=== PATIENT | female | born 1955 | race Caucasian/White ===

== ENCOUNTER → 2019-09-02 10:32 | Outpatient (CLI) | payer BC, SELFPAY ==
[2019-09-02 11:19] LABS: Blood Urea Nitrogen 12 mg/dL (7-18); Creatinine,Serum 0.57 mg/dL (0.55-1.02); Estimated Glomerular Filt Rate 107 ml/min (>60); GFR (African American) 129 ML/MIN (>60)
== END ==
PROVIDERS: Visit Provider Family Medicine
DX: Z01.818 Encounter for other preprocedural examination (principal)
CPT/HCPCS: 36415; 82565; 84520

== ENCOUNTER → 2019-09-07 13:10 | Outpatient (CLI) | payer BC, SELFPAY ==
--- NOTE | 2019-09-07 13:13 | CT_ITS ---
PROCEDURE: CT CHEST W CON CLINCAL INDICATION: ABN CT FU LUNG NODULE, tobacco use, smoker Follow-up COMPARISON: No exams were available for comparison TECHNIQUE: IV Contrast: 75ml Optiray 350 Axial images obtained with sagittal and coronal reformats. All CT scans at the facility use one or more dose reduction, viz: automated exposure control, ma/kV adjustment per patient size (including targeted exams where dose is matched to indication, i.e. head), or iterative reconstruction technique. FINDINGS: HEART,AORTA,PULMONARY ARTERIES there are coronary artery calcifications. No evidence of aortic aneurysm or dissection. The main pulmonary artery is slightly prominent with a pulmonary artery/aorta ratio of greater than 1 which may be seen with pulmonary arterial hypertension. MEDIASTINAL AND HILAR STRUCTURES: No mediastinal or hilar mass evident. No dominant adenopathy. LUNGS: Hyperinflation with attenuation of the peripheral pulmonary vessels consistent with COPD with centrilobular emphysema. There is mild prominence of the interstitial markings. A 3 mm subpleural nodules present in the right middle lobe anterior laterally image 53. A calcified nodules present in the right middle lobe. The. There are minimal atelectatic or fibrotic changes in the superior segment of the left lower lobe. A small ill-defined parenchymal opacity is present in the left upper lobe at 6 mm. PLEURAL SPACES: No significant effusion. No evidence of pneumothorax. BONY STRUCTURES: Degenerative changes thoracic spine. The LYMPH NODES: No enlarged lymph nodes evident. UPPER ABDOMEN: Small nodes are present in the periaortic region/retroperitoneum incompletely imaged ADDITIONAL FINDINGS: No other significant abnormalities. IMPRESSION: 1. COPD/centrilobular emphysema. Mild prominence of the main pulmonary artery suggesting pulmonary arterial hypertension with coronary artery calcifications noted. 2. 6 mm noncalcified left upper lobe nodule. Recommend six-month CT follow-up. No old CTs are available for comparison at the time of this reading Dictated by: Adán Alvarado MD 09/09/2019 10:13 Electronically signed by Adán Alvarado MD in [facility] 09/09/2019 10:13
== END ==
PROVIDERS: PCP Family Medicine; Visit Provider Family Medicine
DX: R93.89 Abnormal findings on diagnostic imaging of other specified body structures (principal)
CPT/HCPCS: 71260

== ENCOUNTER → 2019-09-22 10:05 | Outpatient (CLI) | payer BC, SELFPAY ==
--- NOTE | 2019-09-22 10:17 | MM_ITS ---
PROCEDURE: MM DIG SCREENING MAMM BI W/CAD CLINICAL INDICATION: SCREENING There is no personal or family history of breast cancer COMPARISON: Previous mammograms from outside facility are not available for review at this time, if and when they arrive an addendum can be dictated TECHNIQUE: Standard CC and MLO images were obtained. R2 CAD reviewed. FINDINGS: Scattered diffuse fibroglandular densities are seen in both breasts. The findings of bilateral symmetrical. There is no suspicious lesion in either breast and no suspicious microcalcifications. There is a tiny benign-appearing nodular density near the axillary tail right breast possibly a low-lying node or cyst there is a small benign-appearing nodular density upper-outer quadrant left breast. IMPRESSION: Fibrofatty parenchyma with no suspicious lesions seen BI-RAD Category: 2 Benign Finding(s) FOLLOW-UP: 1YR 1 Year Follow-up (A letter has been sent to the patient regarding results of the study.) Dictated by: Dr. Gary Adamson MD 09/23/2019 11:[address] Gary Adamson MD in [facility] 09/23/2019 11:20
== END ==
PROVIDERS: PCP Family Medicine; Visit Provider Family Medicine
DX: Z12.31 Encounter for screening mammogram for malignant neoplasm of breast (principal); N60.12 Diffuse cystic mastopathy of left breast; N60.11 Diffuse cystic mastopathy of right breast
CPT/HCPCS: 77067

== ENCOUNTER → 2020-01-05 12:03 | Outpatient (CLI) | payer BC, SELFPAY ==
[2020-01-05 12:07] LABS: Adenovirus F 40/41, stool Not Detected (NotDetected); Astrovirus Not Detected (NotDetected); Campylobacter Not Detected (NotDetected); Clostridium Difficile A/B, PCR Not Detected (NotDetected); Cryptosporidium Not Detected (NotDetected); Cyclospora Cayetanesis Not Detected (NotDetected); Entamoeba histolytica Not Detected (NotDetected); Enteroaggregative E coli Not Detected (NotDetected); Enteropathogenic E coli Not Detected (NotDetected); Enterotoxigenic E coli Not Detected (NotDetected); Giardia lamblia Not Detected (NotDetected); Norovirus Not Detected (NotDetected); Plesimonas Shigalloides, PCR Not Detected (NotDetected); Rotavirus A Not Detected (NotDetected); Salmonella, PCR Not Detected (NotDetected); Sapovirus Not Detected (NotDetected); Shiga-like toxin E coli Not Detected (NotDetected); Shigella Enterovasive E coli Not Detected (NotDetected); Vibrio Cholerae Not Detected (NotDetected); Vibrio, PCR Not Detected (NotDetected); Yersinia Entercolitica, PCR Not Detected (NotDetected)
== END ==
PROVIDERS: Visit Provider Family Medicine
DX: R19.7 Diarrhea, unspecified (principal)
CPT/HCPCS: 87507

== ENCOUNTER → 2020-01-16 09:06 | Outpatient (CLI) | payer BC, SELFPAY ==
[2020-01-20 11:24] LABS: 5-HIAA, Urine 3.3 mg/L (Undefined); 5-HIAA, Urine, 24Hr. 5.3 mg/24 hr (0.0-14.9)
== END ==
PROVIDERS: Visit Provider Family Medicine
DX: K59.1 Functional diarrhea (principal)
CPT/HCPCS: 83497

== ENCOUNTER → 2020-02-23 07:34 | Outpatient (CLI) | payer BC, SELFPAY ==
--- NOTE | 2020-02-23 07:36 | CA_ITS ---
APPROVED REPORT [employer]: Makenna Moss RVT Study Quality: Excellent Indications: HTN Risk Factors Hypertension Hyperlipidemia Smoking Renal Artery Doppler Origin (R) 142.2/ cm/sec Proximal (R) 205.6/ cm/sec Mid (R) 110.3/ cm/sec Distal (R) 136.9/ cm/sec Renal Aorta Ratio (R) 1.28 Segmental A. (R) 80.5/10.5 cm/sec RI: 0.86 Segmental A. Sup (R) 45.3/10.9 cm/sec Segmental A. Mid (R) 53.3/17.8 cm/sec Segmental A. Inf (R) 80.5/10.5 cm/sec Origin (L) 179.9/ cm/sec Proximal (L) 183.4/ cm/sec Mid (L) 178.0/ cm/sec Distal (L) 148.7/ cm/sec Renal Aorta Ratio (L) 1.14 Segmental A. (L) 95.0/26.0 cm/sec RI: 0.72 Segmental A. Sup (L) 95.0/26.0 cm/sec Segmental A. Mid (L) 95.0/13.8 cm/sec Segmental A. Inf (L) 85.8/27.6 cm/sec Renal Measurements Kidney Size (R) 11.0x6.7 cm Cortical Thickness (R) 1.9 cm Kidney Size (L) 11.0x6.0 cm Cortical Thickness (L) 1.8 cm Findings Study suggests less than 60% stenosis of the right renal artery. Study suggests less than 60% stenosis of the left renal artery. RI is elevated 0.9 on the right. Conclusion Study suggests less than 60% stenosis of the right renal artery. Study suggests less than 60% stenosis of the left renal artery. Electronically signed by : Adán Alvarado MD 02/23/2020 17:29:47
--- NOTE | 2020-02-23 07:41 | US_ITS ---
APPROVED REPORT Exam Type: Lower Extremity Segmental Pressures Assistant Director Of Security: Makenna Moss RVT Indications Claudication: Bilaterally Edema Current Smoker Risk Factors Hypertension Hyperlipidemia Current Smoker Pressures/Indices Right Indices Left Indices Brachial 153.00 mmHg Brachial 148.00 mmHg Low Thigh 142.00 mmHg 0.93 Low Thigh 159.00 mmHg 1.04 Calf 149.00 mmHg 0.97 Calf 174.00 mmHg 1.14 Ankle(PT) 162.00 mmHg 1.06 Ankle(PT) 175.00 mmHg 1.14 Ankle(DP) 137.00 mmHg 0.90 Ankle(DP) 170.00 mmHg 1.11 Digit 117.00 mmHg 0.76 Digit 109.00 mmHg 0.71 Findings RT ANNITA:1.06 LT ANNITA:1.14 RT TBI:0.76 LT TBI:0.71 NORMAL PULSES BILATERAL DAMPENED WAVEFORMS BILATERAL ANKLES Conclusion NORMAL ANNITA BILAT NORMAL PULSES BILATERAL DAMPENED WAVEFORMS BILATERAL ANKLES Electronically signed by : Adán Alvarado MD 02/23/2020 17:27:49
--- NOTE | 2020-02-23 07:41 | CA_ITS ---
APPROVED REPORT EXAM: Comprehensive 2D, Doppler, and color-flow Echocardiogram [employer] Teacher: Makenna Moss RVT Ht: 5 ft 5 in Wt: 152lbs BSA: 1.76 BP: 169/84 mmHg Indications: Chest Pain, COPD, Shortness of Breath, Dyspnea, Hyperlipidemia, smoker, bradycardia, tomás 2D Dimensions LVOT 1.58 cm (M/F) 1.5-2.5 M-Mode Dimensions RVDd 2.89 cm (0.9-2.6) LVDd 4.07 cm (3.5-5.7) LVDs 2.57 cm (3.5-5.7) IVSd 1.50 cm (0.6-1.1) PWd 0.71 cm (0.6-1.1) EF (Teich) 67.20% FS 36.90% EDV (Teich) 72.90 mL ESV (Teich) 23.90 mL LV Diastology E/A Ratio 1.48 Mitral Valve MV A Velocity 69.00 (40-130 cm/s) Left Ventricle Left atrium is mildly enlarged, left ventricle is normal size, there is no concentric left ventricular hypertrophy, visually estimated ejection fraction 55% with no regional wall motion abnormality. Diastolic parameters are within normal range. Right Ventricle Right atrium right ventricular mildly enlarged with normal contractility. Aortic Valve Aortic valve is minimally thickened and fibrosed. There is no aortic stenosis or aortic insufficiency. Mitral Valve Mitral valve is minimally thickened, there is no mitral stenosis, there is mild mitral regurgitation. Tricuspid Valve Tricuspid valve is grossly normal, there is mild tricuspid regurgitation, tricuspid regurgitation jet velocity is inadequate for calculation of the right ventricular systolic pressure. Pulmonic Valve Pulmonic valve is poorly visualized. Great Vessels Aortic root is normal size. Pericardium No significant pericardial effusion noted. Conclusion 1. Normal left ventricular size, preserved left ventricular systolic function, visually estimated ejection fraction 55% with no regional wall motion abnormality, diastolic parameters are within normal range. 2. Mildly enlarged right ventricle with normal contractility. 3. Mild mitral and tricuspid regurgitation. 4. No significant pericardial effusion noted. Electronically signed by : Venancio Joya, 02/23/2020 11:48:47
== END ==
PROVIDERS: PCP Family Medicine; Visit Provider Internal Medicine Cardiovascular Disease
DX: G47.33 Obstructive sleep apnea (adult) (pediatric) (principal); I10 Essential (primary) hypertension; R06.00 Dyspnea, unspecified; F17.200 Nicotine dependence, unspecified, uncomplicated; G47.9 Sleep disorder, unspecified; J44.9 Chronic obstructive pulmonary disease, unspecified; R06.83 Snoring; M79.605 Pain in left leg; R00.1 Bradycardia, unspecified; M79.604 Pain in right leg; R07.9 Chest pain, unspecified; R40.0 Somnolence; R53.1 Weakness; I73.9 Peripheral vascular disease, unspecified
CPT/HCPCS: 93306; 93923; 93976; G0399

== ENCOUNTER → 2020-02-27 07:10 | Outpatient (CLI) | payer BC, SELFPAY ==
--- NOTE | 2020-02-27 | CA_ITS ---
APPROVED REPORT Exam: Pharmacologic Technologist: Emily Zuniga Ht: 5 ft 5 in Wt: 152 lbs BSA: 1.76 m2 HR: 55 bpm BP: 155/75 mmHg Indications: Chest pain, Shortness of Air, Fatigue, Dizziness Medical History Medications: Amlodipine,,,,, Clonidine,,,,, Losartan,,,,, Citalopram,,,,, BisOPROLOL,,,,, RoSUVASTATIN,,,,, Potassium,,,,, DexlansAPRAZOLE,,,,, Stress Test Details Test: LEXISCAN HR Resting HR: 52 bpm Max Heart Rate (APMHR): 156 bpm Max HR Achieved: 85 bpm Target HR (85% APMHR): 132 bpm % of APMHR: 54 Recovery HR: 67 bpm BP Resting BP: 155.0/75.0 mmHg Max BP: 164.0/78.0 mmHg Recovery BP: 141.0/79.0 mmHg ECG Clinical Exercise duration: 03:59 min Highest Stage Achieved: Stress ECG Conclusion Resting ECG: Sinus Bradycardia Lexiscan portion completed. Patient complained of shortness of breath during peak infusion. Symptoms: Shortness of breath during peak infusion. Resolved in recovery. No chest pain. Arrhythmias/Ectopy: No ectopy ST-T Changes: Less than 1.[address] depression. Concluison: Images to follow. Test Summary REST . . . . . . . Resting REST 04:38 . . 52 . 155/ 75 . . Stage 1 01:00 . . 71 . . . . Stage 2 01:00 . . 82 . . . . Stage 3 01:00 . . 76 . 147/ 72 . . Stage 4 00:59 . . 76 . 133/ 73 . Stop exercise at 03:59 RECOVERY 01:00 . . 73 . 138/ 71 . . RECOVERY 02:00 . . 71 . 138/ 71 . . RECOVERY 03:00 . . 72 . 142/ 71 . . RECOVERY 03:32 . . 67 . 141/ 74 . . Electronically signed by : Venancio Joya, 02/27/2020 20:55:39
--- NOTE | 2020-02-27 07:11 | NM_ITS ---
APPROVED REPORT Exam: Nuclear Stress Test Indication: HTN, HYPERLIPIDEMIA, TOB USE, FM. HX., C.P., SOB Patient Location: Outpatient Stress Tech: Emily Zuniga AL Tech:Yolie Sanders ANTONINO RT (R)(N)(M) Ht: 5 ft 5 in Wt: 152 lbs Bra Size: D HR: 55 bpm BP: 155/75 mmHg BSA: 1.76 m2 BMI: 25.2 History: HTN, HYPERLIPIDEMIA, TOB USE, FM. HX., C.P., SOB Procedure: Patient received a 0.4 mg of intravenous Lexiscan, resting heart rate 55 bpm, resting blood pressure 155/75 mmHg, with Lexiscan maximum heart rate achived was 82 bpm which is Less than 85 % of the maximum predicted heart rate and blood pressure was 164/78 mmHg. With Lexiscan, patient denied any complaint of chest pain. Electrocardiogram Resting electrocardiogram showed sinus rhythm, with Lexiscan there is less than 1.[address] segment depression noted from the baseline EKG. The EKG portion of the Lexiscan Myoview is nondiagnostic Cardiac Stress and Resting SPECT Images: Cardiac Stress and Resting SPECT images were obtained using technetium 99m Myoview 32.1 mCi stress and 10.27 mCi at rest. Gated SPECT for analysis of segmental wall motion and calculation of the ejection fraction also done. Cardiac stress and rest SPECT may show decreases activity in the anterior apical wall which improves on the resting images suggestive of reversible ischemia, computer derived ejection fraction is over 65% with no regional wall motion abnormality, right ventricle is normal size and contractility. Conclusion: 1. The EKG portion of the Lexiscan Myoview is nondiagnostic. 2. Scintigraphic evidence of mild reversible ischemia involving the anterior apical wall, computer derived ejection fraction is over 65% with no regional wall motion abnormality, right ventricle is normal size and contractility. This study is technically limited due to patient's body habitus. 3. Likely abnormal Lexiscan Myoview study. Electronically signed by : Venancio Joya, 02/27/2020 20:58:12
== END ==
PROVIDERS: PCP Family Medicine; Visit Provider Internal Medicine Cardiovascular Disease
DX: R07.9 Chest pain, unspecified (principal); R00.1 Bradycardia, unspecified; R06.00 Dyspnea, unspecified; J44.9 Chronic obstructive pulmonary disease, unspecified; F17.200 Nicotine dependence, unspecified, uncomplicated; G47.33 Obstructive sleep apnea (adult) (pediatric); G47.9 Sleep disorder, unspecified; I10 Essential (primary) hypertension; M79.604 Pain in right leg; M79.605 Pain in left leg; R06.83 Snoring; R40.0 Somnolence; R53.1 Weakness
CPT/HCPCS: 78452; 93017; A9502; J2785

== ENCOUNTER → 2020-03-01 07:16 | Outpatient (CLI) | payer BC, SELFPAY ==
[2020-03-01 11:30] LABS: Anion Gap 11.6 mEq/L (5-15); Blood Urea Nitrogen 16 mg/dl (7-17); Calcium 9.9 mg/dl (8.4-10.2); Carbon Dioxide 26 mmol/L (22.0-30.0); Chloride 100 mmol/L (98-107); Estimated Glomerular Filt Rate 124 ml/min (>60); GFR (African American) 150 ML/MIN (>60); Glucose 102 mg/dl (74-100); Potassium 4.6 mmoL/L (3.5-5.1); Sodium 133 mmol/L (136-145)
== END ==
PROVIDERS: Internal Medicine Cardiovascular Disease; Visit Provider Family Medicine
DX: R93.89 Abnormal findings on diagnostic imaging of other specified body structures (principal)
CPT/HCPCS: 36415; 80048; 82565; 84520

== ENCOUNTER 2020-03-08 08:04 | Day surgery (SDC) | payer BC, SELFPAY ==
[2020-03-08] VITALS (11 sets, daily range): BP systolic 117–175; BP diastolic 60–90; PULSE 53–65; RESP 16–18; TEMP 37.3; O2SAT 92–99; BMI 25.2
--- NOTE | 2020-03-08 | IR_ITS ---
APPROVED REPORT Patient Location: Outpatient Hr Representative: ANTONINO Mcdonald RT (R) PROCEDURES Left heart catheterization Left ventriculogram Selective coronary angiogram Bilateral selective renal angiogram INDICATION High risk abnormal Myoview, Malignant hypertension suspect renovascular hypertension, Suspect fibromuscular dysplasia Informed consent was obtained prior to the procedure. COMPLICATIONS NONE Estimated Blood Loss: LESS THAN 10 ML TECHNIQUE One percent lidocaine used to anesthetize the right anterior aspect of the wrist. The right radial artery was accessed via the Seldinger technique. A 6 Maori sheath was placed in the right radial artery. 2.5 mg of verapamil, 800 mcg of nitroglycerin, 1mg Lidocaine and 5000 U Heparin were given through the arterial sheath. The trap catheter was also used to perform left heart catheterization, left ventriculogram and selective coronary angiogram. The same catheter was used to perform bilateral selective renal angiography at the end of the procedure the sheath was removed good hemostasis was achieved using Traclet band, patient was transferred to the postop holding area in stable condition. ANGIOGRAPHIC RESULTS The left main artery Normal The left anterior descending artery Normal The circumflex artery Normal The right coronary artery Normal The TODD ventriculogram reveals Normal 65% The left ventricular end-diastolic pressure 10 mmHg The right renal artery singular normal The left renal artery singular normal IMPRESSION Normal coronary arteries Normal ejection fraction Normal left ventricular end-diastolic pressure Normal renal arteries PLAN 1. Medical management Electronically signed by : Keny Sanderson, 03/08/2020 09:52:37
[2020-03-08 08:40] LABS: Basophils # 0.2 K/mm3 (0-0.2); Basophils % 1.7 % (0.1-2.0); Eosinophils # 0.5 K/mm3 (0.0-0.4); Eosinophils % 4.6 % (0.1-12.0); Hematocrit 42.7 % (37.0-47.0); Hemoglobin 13.9 g/dL (12.2-16.2); Lymphocytes % 17.7 % (10-50); Mean Corpuscular HGB Conc 32.6 g/dL (31.8-35.4); Mean Corpuscular Hemoglobin 33.3 pg (27.0-31.2); Mean Corpuscular Volume 101.9 fl (81-99); Mean Platelet Volume 7.6 fl (7.4-10.4); Monocytes # 0.8 K/mm3 (0.1-1.0); Neutrophils # 7.9 K/mm3 (1.8-7.8); Neutrophils % 69.1 % (37.0-80.0); Platelet Count 377 K/mm3 (142-424); Red Blood Count 4.19 M/mm3 (4.20-5.40); Red Cell Distribution Width 12.5 % (11.5-17.5); White Blood Count 11.5 K/mm3 (4.8-10.8)
[2020-03-08 08:51] LABS: Anion Gap 9.2 mEq/L (5-15); Blood Urea Nitrogen 16 mg/dl (7-17); Calcium 9.7 mg/dl (8.4-10.2); Carbon Dioxide 30 mmol/L (22.0-30.0); Chloride 102 mmol/L (98-107); Creatinine Clearance Estimated 62 mL/min (50-200); Estimated Glomerular Filt Rate 124 ml/min (>60); GFR (African American) 150 ML/MIN (>60); Glucose 111 mg/dl (74-100); Potassium 4.2 mmoL/L (3.5-5.1); Sodium 137 mmol/L (136-145)
== END 2020-03-08 12:49 | disposition home or self-care (01) ==
LOC: CATHLAB 08:05
PROVIDERS: PCP Family Medicine; Visit Provider Internal Medicine
DX: I70.1 Atherosclerosis of renal artery (principal); I25.118 Atherosclerotic heart disease of native coronary artery with other forms of angina pectoris; R94.30 Abnormal result of cardiovascular function study, unspecified; Z79.899 Other long term (current) drug therapy; Z72.0 Tobacco use; I10 Essential (primary) hypertension
CPT/HCPCS: 36252; 80048; 85025; 93458; 99152; C1725; C1769; J1644; Q9967

== ENCOUNTER → 2020-03-13 10:34 | Outpatient (CLI) | payer BC, SELFPAY ==
--- NOTE | 2020-03-13 10:38 | CT_ITS ---
PROCEDURE: CT CHEST W CON CLINCAL INDICATION: ABN CT CHEST Shortness of air, follow-up pulmonary nodules, smoker COMPARISON: CT CHEST W CON from 09/07/2019 TECHNIQUE: IV Contrast: 75ml Optiray 350 Axial images obtained with sagittal and coronal reformats. All CT scans at the facility use one or more dose reduction, viz: automated exposure control, ma/kV adjustment per patient size (including targeted exams where dose is matched to indication, i.e. head), or iterative reconstruction technique. FINDINGS: HEART AND MEDIASTINAL STRUCTURES: Unremarkable. LUNGS AND PLEURAL SPACES: Centrilobular emphysema with evidence of old granulomatous disease. There is a 3 mm subpleural nodule in the right middle lobe unchanged. There are few scattered areas of scarring. Previously noted 6 mm ill-defined opacity in the left upper lobe is no longer apparent and may been due to an area atelectatic change or infection. No new nodules are evident. BONY STRUCTURES: Degenerative changes thoracic spine UPPER ABDOMEN: There is mild thickening of the esophagus. This is nonspecific and could be seen with esophagitis. There is mild thickening of the stomach as well which could be due to nondistention versus gastritis. ADDITIONAL FINDINGS: No other significant abnormalities. IMPRESSION: 1. Overall stable CT appearance of the chest. Centrilobular emphysematous change with stable 3 mm right upper lobe nodule. Previously noted 6 mm ill-defined left upper lobe nodule no longer apparent. 2. Thickening of the esophagus and stomach. This could be due to nondistention or soft guidance/gastritis Dictated by: Adán Alvarado MD 03/14/2020 09:24 Electronically signed by Adán Alvarado MD in [place] 03/14/2020 09:24
== END ==
PROVIDERS: PCP Family Medicine; Visit Provider Family Medicine
DX: R93.89 Abnormal findings on diagnostic imaging of other specified body structures (principal)
CPT/HCPCS: 71260; Q9967

== ENCOUNTER → 2020-05-28 07:53 | Outpatient (CLI) | payer BC, SELFPAY ==
[2020-05-28 10:50] LABS: Chloride 101 mmol/L (98-107); Sodium 136 mmol/L (136-145)
[2020-05-28 10:51] LABS: Potassium 4.7 mmoL/L (3.5-5.1)
[2020-05-28 10:53] LABS: Anion Gap 11.7 mEq/L (5-15); Blood Urea Nitrogen 16 mg/dl (7-17); Carbon Dioxide 28 mmol/L (22.0-30.0); Estimated Glomerular Filt Rate 124 ml/min (>60); GFR (African American) 150 ML/MIN (>60)
[2020-05-28 10:54] LABS: Calcium 9.3 mg/dl (8.4-10.2); Glucose 97 mg/dl (74-100)
== END ==
PROVIDERS: Visit Provider Internal Medicine Cardiovascular Disease
DX: I10 Essential (primary) hypertension (principal)
CPT/HCPCS: 36415; 80048

== ENCOUNTER → 2020-07-31 13:01 | Outpatient (CLI) | payer BC, SELFPAY ==
--- NOTE | 2020-07-31 13:06 | US_ITS ---
PROCEDURE: US KIDNEY CLINICAL INDICATION: KIDNEY CYST COMPARISON: US CA RENAL ARTERY DUPLEX from 02/23/2020 FINDINGS: The right kidney is [id number]. No hydronephrosis, cortical thinning, or renal mass or perinephric fluid collection is evident. There is a small exophytic cyst noted along the upper pole of the right kidney at 10 mm The left kidney is [id number]. No hydronephrosis, cortical thinning, or renal mass or perinephric fluid collection is evident. IMPRESSION: Small right renal cyst otherwise negative bilateral renal ultrasound. Dictated by: Adán Alvarado MD 07/31/2020 15:59 Adán Alvarado MD in [place] 07/31/2020 15:59
== END ==
PROVIDERS: PCP Nurse Practitioner; Visit Provider Nurse Practitioner
DX: N28.1 Cyst of kidney, acquired (principal)
CPT/HCPCS: 76770

== ENCOUNTER → 2020-08-09 09:42 | Outpatient (CLI) | payer BC, SELFPAY | PROVIDERS: PCP Nurse Practitioner; Visit Provider Specialist | DX: G47.33 Obstructive sleep apnea (adult) (pediatric) (principal) | CPT/HCPCS: 94762 ==

== ENCOUNTER → 2020-09-12 09:01 | Outpatient (CLI) | payer BC, SELFPAY ==
--- NOTE | 2020-09-12 09:14 | CT_ITS ---
PROCEDURE: CT ABDOMEN PELVIS WO/W CON CLINICAL INDICATION: F/U LIVER NODULE, KIDNEY CYSTS, ABN LAB RESULTS SEE SCANNED REPORT COMPARISON: CT CT CHEST W CON from 09/07/[address] CHEST W CON from 03/13/2020 TECHNIQUE: IV Contrast: 75ML Isovue 370 Oral Contrast None Axial images obtained with sagittal and coronal reformats. All CT scans at the facility use one or more dose reduction, viz: automated exposure control, ma/kV adjustment per patient size (including targeted exams where dose is matched to indication, i.e. head), or iterative reconstruction technique. Images are obtained without and with contrast with dynamic post enhanced imaging of the kidneys. FINDINGS: LOWER THORAX: There is a stable subpleural nodule in the right middle lobe at 4 mm. Scarring is present in the right middle lobe medially. ABDOMEN & PELVIS: Outside CT scan report mentions a hypodense nodule in the left hepatic lobe. The segmental location of the nodule however was not mentioned in the report and that study is not available for review. No definite liver lesions are evident on the pre and post enhanced images. The liver, gallbladder, spleen, adrenal glands, and pancreas have an unremarkable appearance. The adrenal glands are somewhat prominent but maintain and adrenal form shape and are not significantly changed. There are some small periportal lymph nodes present which are stable. Gastric wall thickening is noted and is nonspecific in the region of the gastric body and fundus. 10 mm exophytic nodule projects off the upper pole of the right kidney this measures an average of 13 Hounsfield units and does not appear significantly changed from 09/07/2019 consistent with a renal cyst. There is an additional 7 mm cyst in the upper pole of the right kidney. A 6 mm cyst is present in the mid polar region of the left kidney posteriorly. Additional 7 mm cyst upper pole left kidney. No suspicious renal lesions are evident. There are scattered small retroperitoneal lymph nodes. No intestinal obstruction or free air. No ureteral calculi. There is a tiny calcific density at the neck of the urinary bladder and could represent a small stone at 2 mm or a vascular calcification. There are no previous exams of this region available for comparison There are post hysterectomy changes. No acute bony findings. There are degenerative changes of the thoracic and lumbar spine. IMPRESSION: 1. No acute abdominal or pelvic findings. 2. Bilateral renal cysts. 3. Thickening of the gastric wall at the fundus and body portion of the stomach nonspecific and could be due to nondistention inflammation or even neoplasm. Upper endoscopy may provide further evaluation. 4. Scattered small retroperitoneal and portal lymph nodes which appear stable. 5. Tiny calcific density at the neck of the urinary bladder and could be due to a vascular calcification or a tiny stone. Dictated by: Adán Alvarado MD 09/13/2020 10:26 Adán Alvarado MD in [place] 09/13/2020 10:26
[2020-09-12 09:30] LABS: Blood Urea Nitrogen 14 mg/dl (7-17); Estimated Glomerular Filt Rate 100 ml/min (>60); GFR (African American) 121 ML/MIN (>60)
== END ==
PROVIDERS: PCP Nurse Practitioner; Visit Provider Nurse Practitioner
DX: K76.89 Other specified diseases of liver (principal); N28.1 Cyst of kidney, acquired; R89.9 Unspecified abnormal finding in specimens from other organs, systems and tissues
CPT/HCPCS: 36415; 74178; 82565; 84520; Q9967

== ENCOUNTER → 2020-09-21 09:13 | Outpatient (CLI) | payer BC, SELFPAY | PROVIDERS: PCP Nurse Practitioner; Visit Provider Nurse Practitioner Family | DX: G47.33 Obstructive sleep apnea (adult) (pediatric) (principal) | CPT/HCPCS: 94762 ==

== ENCOUNTER → 2020-09-24 08:02 | Outpatient (CLI) | payer BC, SELFPAY ==
--- NOTE | 2020-09-24 08:06 | MM_ITS ---
PROCEDURE: MM DIG SCREENING MAMM BI W/CAD Digital Breast Tomosynthesis Included CLINICAL INDICATION: SCREENING There is no personal or family history of breast cancer. COMPARISON: MG MM DIGITAL BILATERAL SCREENING from 09/16/2018 MG MM DIG SCREENING MAMM BI W/CAD from 09/22/2019 TECHNIQUE: Standard CC and MLO images and 3D Tomosynthesis was obtained. R2 CAD reviewed. FINDINGS: Mild to moderate scattered fibroglandular densities are seen in the central portions of both breasts. There is a stable benign-appearing nodular density outer quadrant left breast at approximately the 2-3 o'clock position. There is a stable tiny nodular density outer quadrant right breast at approximately the 3 o'clock position. There is no suspicious lesion and no suspicious microcalcifications. IMPRESSION: Fibrofatty parenchyma with no suspicious lesions seen BI-RAD Category: 2 Benign Finding(s) FOLLOW-UP: 1YR 1 Year Follow-up (A letter has been sent to the patient regarding results of the study.) Dictated by: Dr. Gary Adamson MD 09/30/2020 12:51 Dr. Gary Adamson MD in [place] 09/30/2020 12:51
== END ==
PROVIDERS: PCP Nurse Practitioner; Visit Provider Nurse Practitioner
DX: Z12.31 Encounter for screening mammogram for malignant neoplasm of breast (principal)
CPT/HCPCS: 77063; 77067

== ENCOUNTER → 2020-10-06 10:30 | Outpatient (CLI) | payer BC, SELFPAY ==
[2020-10-06 12:45] LABS: Coronavirus 19 IgG Antibody Negative (Negative); Coronavirus 19 IgM Antibody Negative (Negative)
== END ==
PROVIDERS: Visit Provider Internal Medicine Gastroenterology
DX: Z01.818 Encounter for other preprocedural examination (principal); Z13.810 Encounter for screening for upper gastrointestinal disorder
CPT/HCPCS: 36415; 86328

== ENCOUNTER 2020-10-08 10:46 | Day surgery (SDC) | payer BC, SELFPAY ==
[2020-10-02 13:50] VITALS: BMI 26.6
[2020-10-08 11:04] VITALS: BP 136/69; PULSE 57; RESP 18; TEMP 36.7; O2SAT 99
[2020-10-08 11:19] VITALS: O2SAT 95
--- NOTE | 2020-10-08 11:26 | [facility].PROC ---
[facility] Procedure Note Procedure Note:: Upper Endoscopy Procedure Report: Esophagogastroduodenoscopy with cold biopsies and TTS balloon dilation Endoscopost: Castillo Ortega II, MD Referring Physician: Ara DENTON Date of Procedure: October 08, 2020 Equipment: Olympus GIF 180 standard upper endoscope Sedation: MAC sedation Indications: Mrs. Beyer is a 65-year-old female who is here for diagnostic upper endoscopy secondary to dyspepsia and abnormal CAT scan. The patient does report epigastric abdominal pain that radiates around the right side and sometimes into the back. She has had moderate bloating and minimal belching. She does report some retrosternal chest pain and globus sensation. She did have a negative cardiac evaluation. She reports some early satiety. Recently she has had some constipation and trouble with hemorrhoids. She reports some intermittent dysphagia. She reports no nausea, heartburn or reflux. She reports no weight loss or melena. Her last EGD was in 2016 in [place]. She also had a colonoscopy last at that time. The patient's recent CAT scan on September 12, 2020 did show thickening of the gastric wall of the fundus and body of the stomach suspicious for possible inflammation or nondistention of the stomach. Procedure: Prior to the procedure, a history and physical exam was performed, and patient's medications and allergies were reviewed. The risks, benefits and alternatives of the sedation and procedure were discussed with the patient. All questions were answered and informed consent was obtained. The patient was brought to the procedure room. Patient identification and proposed procedure were verified by the physician and the nurse. The patient was placed in a left lateral decubitus position and the scope was passed under direct vision. Throughout the procedure, the patient's blood pressure, pulse, and oxygen saturations were monitored continuously. The upper GI endoscopy was accomplished without difficulty. The patient tolerated the procedure well. Findings: The scope was passed directly into the upper esophagus and advanced to the third portion of the duodenum. The post bulbar duodenum and duodenal bulb were normal with normal mucosa and conniventes. There was minimal peptic duodenitis and cold biopsies were taken from the post bulbar duodenum and duodenal bulb. The scope was withdrawn through a normal duodenal bulb and pylorus into the stomach. There was reactive gastropathy of the prepyloric antrum. There was chronic gastritis of the body and fundus of the stomach. There was erosions and some minor heme identified in the antrum body and fundus from mild hemorrhagic chronic gastritis. These findings were suggestive of NSAID injury. Cold biopsies were taken along the lesser curvature to rule out H. pylori. Upon retroflexion there was a very small 1 to 2 cm sliding hiatal hernia. The scope was then withdrawn into the esophagus. There was a serrated Z-line with nonerosive reflux. Cold biopsies were taken at the GE junction. There were tertiary contractions and evidence of moderate esophageal dysmotility. The entire esophagus was dilated to 60 Swedish/20 mm with a TTS hydrostatic balloon. There was some mild resistance at the cricopharyngeus. The remainder of the esophageal mucosa was normal. Impression: 1. Cricopharyngeal spasm status post dilation to 20 mm 2. Nonerosive GERD with moderate esophageal dysmotility and very small sliding 1 to 2 cm hiatal hernia 3. Erosive reactive gastropathy and some moderate chronic gastritis?rule out H. pylori with or without NSAID Plan: I will follow-up the biopsies. The patient does have functional dyspepsia which may be multifactorial. I will check histology to rule out H. pylori and inquire whether she is using NSAIDs. I do feel that most of this is related to her obstipation and gas pressure gradients. We will discuss dietary measures and treatment op
[2020-10-08 11:37] VITALS: BP 91/53; PULSE 50; RESP 12; TEMP 36.6; O2SAT 93
--- NOTE | 2020-10-08 11:41 | HMH.ANESCL ---
[facility] Anesthesia Checklist - Patient Identification Patient Identification: Arm Band - Structural Data Admitted From: Home Planned Operative Procedure/s: egd Consent for Planned Operative Procedure(s) Verified: Yes Verified Documents: Surgical Consent, History and Physical - NPO Status Verified Time NPO: 00:00 - Additional verifications Anesthesia Reactions: No - Airway Assessment C-Spine Mobility Assessed: Yes (mp2) TMJ Mobility Assessed: Yes Dentition: Dentures-good fit - Neurological Assessment Level of Consciousness: Awake, Alert - Anesthesia Plan Anesthesia Risk discussed: Yes Anesthesia Plan: Verified ASA Class: III Anesthesia Type: MAC [facility] History I have reviewed the patient's past medical history: Yes Medical History: Reports:: Anxiety, Arrhythmia, Chronic Obstructive Pulmonary Disease (COPD), Gastroesophageal Reflux Disease(GERD), Home Oxygen, Hyperlipidemia, Hypertension Denies:: Cancer, Diabetes Mellitus Type 1, Diabetes Mellitus Type 2, Internal Pacemaker, MRSA, Seizures *Have you ever received a pneumonia vaccine?: Yes *Have you received a flu vaccine this season?: Yes Other Medical History: Reports: Anemia, Other Anesthesia experience/problems:: nac Other Surgeries: Yes: Cardiac Catheterization, Colonoscopy, Hysterectomy-Total. No: Pacemaker Amputation: No Fractures: No - *Social History Last grade of school completed: High school graduate Smoking Status: Current every day smoker Tobacco Type: cigarettes # Packs/Day (cigarettes): 1 #Yrs smoked (if former smoker): 30 Alcohol Intake: never Alcohol Intake Frequency:: 3 or more drinks per day Substance Use Type: denies use *Occupational Status:: retired Housing: house Household Members: spouse *Travel in the last 8 weeks: None - Psychiatric History Pschychiatric History:: Reports:: Anxiety Family Hx:: Cancer
[2020-10-08 11:47] VITALS: BP 110/52; PULSE 52; RESP 16; O2SAT 95
[2020-10-08 11:57] VITALS: BP 113/63; PULSE 51; RESP 16; O2SAT 97
[2020-10-08 12:07] VITALS: BP 123/70; PULSE 51; RESP 16; TEMP 36.6; O2SAT 96
== END 2020-10-08 12:31 | disposition home or self-care (01) ==
LOC: OUTP 10:48
PROVIDERS: PCP Nurse Practitioner; Visit Provider Internal Medicine Gastroenterology
PROC: 0DJ08ZZ Inspection of Upper Intestinal Tract, Via Natural or Artificial Opening Endoscopic (ICD-10-PCS; CPT 43235; principal; 2020-10-08 14:30)
DX: K21.9 Gastro-esophageal reflux disease without esophagitis; K22.4 Dyskinesia of esophagus; K31.9 Disease of stomach and duodenum, unspecified; J39.2 Other diseases of pharynx; K44.9 Diaphragmatic hernia without obstruction or gangrene; K29.50 Unspecified chronic gastritis without bleeding; I10 Essential (primary) hypertension; E78.5 Hyperlipidemia, unspecified; F41.9 Anxiety disorder, unspecified; F32.9 Major depressive disorder, single episode, unspecified; Z72.0 Tobacco use; Z82.3 Family history of stroke; Z83.3 Family history of diabetes mellitus; Z82.49 Family history of ischemic heart disease and other diseases of the circulatory system; Z84.89 Family history of other specified conditions; Z72.89 Other problems related to lifestyle
CPT/HCPCS: 43239; 43249; C1726

== ENCOUNTER → 2021-01-23 14:10 | Outpatient (CLI) | payer BC, SELFPAY ==
--- NOTE | 2021-01-23 14:13 | CT_ITS ---
PROCEDURE: CT LUNG SCREENING CLINICAL INDICATION: HX OF NICOTINE DEPENDENCE Current smoker 45 pack year smoking history copd emphysema Prior chest on pacs COMPARISON: CT CT CHEST W CON from 03/13/2020 TECHNIQUE: The exam was performed on a GE Light Speed [address] scanner using 2.90 mGy CTDI. A low dose helical CT CHEST was performed on a multi-detector scanner. All CT scans at the facility use one or more dose reduction, viz: automated exposure control, ma/kV adjustment per patient size (including targeted exams where dose is matched to indication, i.e. head), or iterative reconstruction technique. The LDCT was performed in a facility that meets the criteria for the screening program. Data regarding this exam was submitted to ACR which is an approved registry. The order for this exam indicates that it came as a result of a lung cancer screening counseling shard decision-making visit that included all the elements required of such a visit including smoking cessation. The radiologist interpreting this exam meets the CMS criteria for the LDCT lung cancer screening program. The exam is reported using the Lung-RADS classification scale and reported to the ACR registry. NOTE: This study was performed for the specific purposes of lung cancer screening and is not an alternative to diagnostic chest CT. RADIATION DOSE: CTDI vol(CT dose Index-volume) = 2.90mG DLP (Dose Length Product) = 110.20 mGcm FINDINGS: COPD changes with coarsening of the bronchovascular markings consistent with smoking related lung disease. Old granulomatous disease. 3 mm subpleural nodule right middle lobe unchanged. 3 mm nodule right lower lobe posteriorly image 57 unchanged chronic atelectatic change in the lingula. Scattered small lymph nodes in the retroperitoneum OTHER FINDINGS: Prominence of the pulmonary arteries with pulmonary artery aorta ratio greater than 1 suggesting pulmonary arterial hypertension. Coronary artery calcification noted IMPRESSION: Lung-RADS Category 1 Negative Follow-up: Continue annual screening with LDCT in 12 months Other findings include COPD and suspected pulmonary arterial hypertension and coronary artery calcification Dictated by: Adán Alvarado MD 01/25/2021 07:50 Adán Alvarado MD in [place] 01/25/2021 07:50
== END ==
PROVIDERS: PCP Family Medicine; Visit Provider Family Medicine
DX: Z87.891 Personal history of nicotine dependence (principal); Z12.2 Encounter for screening for malignant neoplasm of respiratory organs
CPT/HCPCS: 71271

== ENCOUNTER 2021-04-03 10:06 | Emergency (ER) | payer BC, SELFPAY ==
[2021-04-03 10:29] VITALS: BP 133/65; PULSE 70; RESP 24; TEMP 37.1; O2SAT 95; BMI 39.1
--- NOTE | 2021-04-03 10:42 | HMH.EDUTC ---
[facility] [place] Clinical Impression: Chills Disposition: Home, Self-Care Condition on Discharge: Good Additional Instructions: Follow up with Family Doctor if no improvement or any worsening of symptoms Return if needed Straight to ER if any life threatening symptoms Referrals: Leroy Shaffer MD [Primary Care Provider] - As needed Time of Disposition: 11:00 Medical Decision Making - Shaheed Inquiry Pt receiving controlled substance: No Shaheed was queried for this patient: No Vital Signs: 04/03/21 10:29 04/03/21 11:19 Temperature 98.7 F 0 F L Temperature Source Oral Pulse Rate 0 L Pulse Rate [Right] 70 Respiratory Rate 24 0 L Blood Pressure 000/00 L Blood Pressure [Right Arm] 133/65 Blood Pressure Mean [Right Arm] 87 Blood Pressure Source [Right Arm] Automatic Cuff Blood Pressure Position [Right Arm] Sitting 02 Sat by Pulse Oximetry 95 Oxygen Delivery Method Room Air - Lab Data Lab Results 04/03/21 10:33: Urine Color Sigrid, Urine Appearance Clear, Urine pH 5.5, Ur Specific [place] 1.020, Urine Protein 1+, Urine Glucose (UA) Negative, Urine Ketones Negative, Urine Blood 2+, Urine Nitrate Negative, Urine Bilirubin 1+ A, Urine Urobilinogen 4, Ur Leukocyte Esterase Negative Medical Decision Narrative: Spoke with Eryn from Dr Shaffer office who was speaking with Dr Shaffer and informed them of urine test findings and they advised can Dc home and have patient follow up if needed Upon discussing Ua results patient became upset that her urine did not show Nitrates or Leukocytes and cussed walked out of the room Patient advised that she can follow up with her PCP for further treatment and evaluation [facility] HPI - General Stated complaint: loss of bladder/bowel control Time Seen by Provider: 04/03/21 10:42 Mode of Arrival: Ambulatory Source of Information: Patient Limitations: No Limitations Description of Symptoms (Recalled from Triage Doc. by RN): pt states 3 mo. ago she had a uti and her pcp refused to tx it. pt since has had trouble with incontinance. pt went back to the [facility] a little over a week ago and still has a uti and states she made them draw blood. her wbc were 14. pt was given nitrofurantoin. the past two days she has been febrile and chilling. pt is afebrile at this [facility]. HEENT Symptoms (Recalled from RN notes): No Resp Symptoms (Recalled from RN notes): No Skin Symptoms (Recalled from RN notes): No MS Symptoms (Recalled from RN notes): No Functional Status (Recalled from RN notes): na - History of Present Illness Provider Complaint: Patient states that she is vaccinated for COVID, State that about a week ago she seen her PCP and was dx with UTI and prescribed some medication States that the medication upset her stomach so she stopped taking it States that she has been having fever on and off for several days and having body aches and chills States that she she was worried her infection wasnt better - Related Data Home Medications Medication Instructions Recorded Confirmed Bisoprolol Fumarate [Bisoprolol 5 mg PO DAILY 07/01/19 10/08/20 5mg Tablet] citalopram 20 mg tablet 20 mg PO DAILY 02/17/20 10/08/20 clonidine HCl 0.1 mg tablet 0.1 mg PO DAILY PRN tab 02/17/20 10/08/20 potassium chloride 10 mEq 10 meq PO Q OTHER DAY cap 02/17/20 10/08/20 capsule,extended release pravastatin 20 mg tablet 20 mg PO HS tab 08/07/20 10/08/20 Calcium Carbonate [Calcium] 600 mg PO BID 10/02/20 10/08/20 Cholecalciferol (Vitamin D3) 125 mcg PO DAILY 10/02/20 10/08/20 [Vitamin D3] Mecobalamin [B-12] 2,500 mcg PO DAILY 10/02/20 10/08/20 Olmesartan Medoxomil [Benicar] 5 mg PO DAILY 10/02/20 10/08/20 Pyridoxine HCl (Vitamin B6) 1,000 mg PO DAILY 10/02/20 10/08/20 [Pyridoxine HCl] Ubidecarenone [Coenzyme Q10] 100 mg PO DAILY 10/02/20 10/08/20 Previous Rx's Medication Instructions Recorded amlodipine 2.5 mg tablet See Rx Instructions .ROUTE 02/20/21 .COMPLEX #90 tablet Allergies Aller
--- NOTE | 2021-04-03 10:54 | PC.NURSE ---
Pt walked out without getting any discharge paperwork.
[2021-04-03 11:17] LABS: Apearance,Urine Clear (Clear); Blood, Urine 2+ (Negative); Color,Urine Amber (Yellow); Glucose,Urine (UA) Negative (Negative); Ketones,Urine Negative (Negative); PH,Urine 5.5 (5.0-8.5); Protein,Urine 1+ (Negative)
[2021-04-03 11:18] LABS: Bilirubin,Urine 1+ (Negative); UTC Leukocyte Esterase,Urine Negative (Negative); UTC Nitrate,Urine Negative (Negative); Urobilinogen,Urine 4 EU/dl (0.2)
[2021-04-03 11:19] VITALS: BP 000/00; PULSE 0; RESP 0; TEMP -17.7; TEMP 0
== END 2021-04-03 11:00 | disposition home or self-care (01) ==
PROVIDERS: Emergency Provider Nurse Practitioner; PCP Family Medicine
DX: R68.83 Chills (without fever) (principal); N39.0 Urinary tract infection, site not specified; K21.9 Gastro-esophageal reflux disease without esophagitis; I10 Essential (primary) hypertension; J44.9 Chronic obstructive pulmonary disease, unspecified; E78.5 Hyperlipidemia, unspecified; F17.210 Nicotine dependence, cigarettes, uncomplicated; Z79.899 Other long term (current) drug therapy
CPT/HCPCS: 81003; 99202; G0463

== ENCOUNTER → 2021-06-25 12:38 | Outpatient (CLI) | payer BC, SELFPAY ==
[2021-06-25 13:48] LABS: Basophils # 0.1 K/mm3 (0-0.2); Basophils % 0.6 % (0.1-2.0); Eosinophils # 0.4 K/mm3 (0.0-0.4); Hematocrit 40.7 % (37.0-47.0); Hemoglobin 13.6 g/dL (12.2-16.2); Lymphocytes # 2.9 K/mm3 (0.7-4.5); Lymphocytes % 22.8 % (10-50); Mean Corpuscular HGB Conc 33.3 g/dL (31.8-35.4); Mean Corpuscular Hemoglobin 33.7 pg (27.0-31.2); Mean Platelet Volume 8.4 fl (7.4-10.4); Monocytes # 0.9 K/mm3 (0.1-1.0); Monocytes % 6.9 % (1.7-9.3); Neutrophils # 8.4 K/mm3 (1.8-7.8); Neutrophils % 66.7 % (37.0-80.0); Platelet Count 461 K/mm3 (142-424); Red Blood Count 4.02 M/mm3 (4.20-5.40); Red Cell Distribution Width 13.2 % (11.5-17.5); White Blood Count 12.6 K/mm3 (4.8-10.8)
[2021-06-25 14:34] LABS: Alanine Aminotransferase 23 U/L (12-78); Albumin Level 4.2 g/dl (3.5-5.0); Albumin/Globulin Ratio 1.7 (1.1-1.8); Alkaline Phosphatase 95 U/L (38-126); Anion Gap 15.3 mEq/L (5-15); Aspartate Amino Transferase 32 U/L (14-36); Bilirubin,Total 0.8 mg/dl (0.2-1.3); Blood Urea Nitrogen 11 mg/dl (7-17); Calcium 9.4 mg/dl (8.4-10.2); Carbon Dioxide 27 mmol/L (22.0-30.0); Chloride 98 mmol/L (98-107); Chol/HDL Ratio 3.6 (1-3.5); Cholesterol 197 mg/dl (140-200); Estimated Glomerular Filt Rate 84 ml/min (>60); GFR (African American) 101 ML/MIN (>60); Globulin 2.5 g/dL (1.3-3.2); Glucose 89 mg/dl (74-100); HDL Cholesterol 55 mg/dl (40-60); Potassium 4.3 mmoL/L (3.5-5.1); Sodium 136 mmol/L (136-145); Total Protein,Serum 6.7 g/dl (6.3-8.2); Triglycerides 158 mg/dl (30-150); VLDL Cholesterol 32 mg/dL (0-40)
[2021-06-25 14:44] LABS: Direct LDL Cholesterol 108.95 mg/dL (100-129)
[2021-06-25 14:51] LABS: 25-OH Vitamin D, Total 39.5 ng/mL (30-100)
[2021-06-25 15:04] LABS: Thyroid Stimulating Hormone 0.71 uIU/mL (0.465-4.68)
[2021-06-25 15:23] LABS: Vitamin B12 637 pg/mL (239-931)
[2021-06-27 12:40] LABS: Peripheral Smear Review Scanned Result
== END ==
PROVIDERS: Visit Provider Nurse Practitioner Family
DX: Z00.00 Encounter for general adult medical examination without abnormal findings (principal); I10 Essential (primary) hypertension; D72.829 Elevated white blood cell count, unspecified; R20.2 Paresthesia of skin
CPT/HCPCS: 36415; 80053; 80061; 82306; 82607; 84443; 85025

== ENCOUNTER → 2021-10-01 12:45 | Outpatient (CLI) | payer BC, SELFPAY ==
[2021-10-01 15:35] LABS: Alanine Aminotransferase 9 U/L (12-78); Albumin Level 4.5 g/dl (3.5-5.0); Albumin/Globulin Ratio 1.9 (1.1-1.8); Alkaline Phosphatase 89 U/L (38-126); Anion Gap 7.7 mEq/L (5-15); Aspartate Amino Transferase 29 U/L (14-36); Bilirubin,Total 0.5 mg/dl (0.2-1.3); Blood Urea Nitrogen 10 mg/dl (7-17); Calcium 9.6 mg/dl (8.4-10.2); Carbon Dioxide 29 mmol/L (22.0-30.0); Chloride 103 mmol/L (98-107); Chol/HDL Ratio 3.8 (1-3.5); Cholesterol 177 mg/dl (140-200); Estimated Glomerular Filt Rate 100 ml/min (>60); GFR (African American) 121 ML/MIN (>60); Globulin 2.4 g/dL (1.3-3.2); Glucose 83 mg/dl (74-100); HDL Cholesterol 46 mg/dl (40-60); Magnesium 1.8 mg/dl (1.6-2.3); Potassium 4.7 mmoL/L (3.5-5.1); Sodium 135 mmol/L (136-145); Total Protein,Serum 6.9 g/dl (6.3-8.2); Triglycerides 150 mg/dl (30-150); VLDL Cholesterol 30 mg/dL (0-40)
[2021-10-01 15:46] LABS: Direct LDL Cholesterol 96.21 mg/dL (100-129)
[2021-10-01 15:51] LABS: 25-OH Vitamin D, Total 48.1 ng/mL (30-100)
[2021-10-01 16:22] LABS: Vitamin B12 763 pg/mL (239-931)
[2021-10-01 17:05] LABS: Thyroid Stimulating Hormone 0.99 uIU/mL (0.465-4.68)
[2021-10-02 12:23] LABS: Hemoglobin A1C 5.6 % (4.0-6.0)
== END ==
PROVIDERS: Visit Provider Nurse Practitioner Family
DX: Z00.00 Encounter for general adult medical examination without abnormal findings (principal); I10 Essential (primary) hypertension; E78.2 Mixed hyperlipidemia; R20.2 Paresthesia of skin; R25.2 Cramp and spasm
CPT/HCPCS: 36415; 80053; 80061; 82306; 82607; 83036; 83735; 84443

== ENCOUNTER → 2021-10-14 10:07 | Outpatient (CLI) | payer BC, SELFPAY ==
--- NOTE | 2021-10-14 10:11 | MM_ITS ---
PROCEDURE INFORMATION: Exam: MG Bilateral Screening 3D Mammography Exam date and time: 10/14/2021 10:11 AM Age: 66 years old Clinical indication: Encounter for screening mammogram for malignant neoplasm of breast TECHNIQUE: Imaging protocol: Bilateral screening tomosynthesis and 2D mammography including computer-aided detection (CAD) when performed. COMPARISON: 1. MG MM DIG SCREENING MAMM BI W/CAD 09/24/2020 8:04 AM 2. MG MM DIG SCREENING MAMM BI W/CAD 09/22/2019 10:43 AM FINDINGS: MAMMOGRAPHY: Breast composition: The breast tissue is composed of scattered areas of fibroglandular density. Mass: None. Architectural distortion: None. Calcifications: No suspicious calcifications. Asymmetric density: None. Skin thickening: None. Axillary adenopathy: None. IMPRESSION: No mammographic evidence of malignancy. Annual screening is recommended unless otherwise clinically indicated. ASSESSMENT: BI-RADS Category 1: Negative
== END ==
PROVIDERS: PCP Family Medicine; Visit Provider Nurse Practitioner Family
DX: Z12.31 Encounter for screening mammogram for malignant neoplasm of breast (principal)
CPT/HCPCS: 77063; 77067

== ENCOUNTER 2021-10-23 21:52 | Emergency (ER) | payer BC, SELFPAY ==
--- NOTE | 2021-10-23 21:51 | ECG_ITS ---
APPROVED REPORT Exam: Resting ECG HR:66 bpm ECG Measurements Heart Rate 66 AXES LA 126 P 33 QRSd 74 QRS 80 QT 410 T 75 QTc 429 Conclusion Normal sinus rhythm Nonspecific ST and T wave abnormality Abnormal ECG Electronically signed by : Leroy Coyle MD 10/25/2021 12:38:09
[2021-10-23 22:00] VITALS: BP 142/89; PULSE 68; O2SAT 98
[2021-10-23 22:07] VITALS: BP 142/89; PULSE 66; RESP 16; TEMP 36.4; O2SAT 97; BMI 26.6
--- NOTE | 2021-10-23 22:15 | XR_ITS ---
PROCEDURE INFORMATION: Exam: XR Chest Exam date and time: 10/23/2021 10:15 PM Age: 66 years old Clinical indication: Shortness of breath; Sternal or substernal pain; Additional info: Chest pain TECHNIQUE: Imaging protocol: XR of the chest. Views: 2 views. COMPARISON: CT CHEST W CON 03/13/2020 11:54 AM FINDINGS: Lungs: There is a retrocardiac opacity best seen on the lateral view. The right lung is clear. Pleural spaces: Unremarkable. No pleural effusion. No pneumothorax. Heart/Mediastinum: Unremarkable. No cardiomegaly. Bones/joints: Unremarkable. IMPRESSION: Left lower lung mass or pneumonia. Consider cross-sectional imaging for further evaluation.
[2021-10-23 22:28] LABS: Basophils # 0.3 K/mm3 (0-0.2); Basophils % 1.3 % (0.1-2.0); Eosinophils # 0.6 K/mm3 (0.0-0.4); Eosinophils % 2.9 % (0.1-12.0); Hemoglobin 15.5 g/dL (12.2-16.2); Lymphocytes # 3.7 K/mm3 (0.7-4.5); Mean Corpuscular HGB Conc 32.9 g/dL (31.8-35.4); Mean Corpuscular Hemoglobin 33.9 pg (27.0-31.2); Mean Corpuscular Volume 102.7 fl (81-99); Mean Platelet Volume 8.4 fl (7.4-10.4); Monocytes # 0.9 K/mm3 (0.1-1.0); Monocytes % 4.8 % (1.7-9.3); Neutrophils % 71.9 % (37.0-80.0); Platelet Count 458 K/mm3 (142-424); Red Blood Count 4.58 M/mm3 (4.20-5.40); Red Cell Distribution Width 13.1 % (11.5-17.5); White Blood Count 19.5 K/mm3 (4.8-10.8)
[2021-10-23 22:31] VITALS: BP 116/55; PULSE 65; O2SAT 93
[2021-10-23 22:32] LABS: MANUAL DIFFERENTIAL MANUAL DIFFERENTIAL (MANUAL DIFF)
[2021-10-23 22:33] LABS: Amylase 64 U/L (30-110)
[2021-10-23 22:34] LABS: Alanine Aminotransferase 52 U/L (12-78); Albumin Level 4.7 g/dl (3.5-5.0); Albumin/Globulin Ratio 1.6 (1.1-1.8); Alkaline Phosphatase 99 U/L (38-126); Anion Gap 9.9 mEq/L (5-15); Aspartate Amino Transferase 45 U/L (14-36); Bilirubin,Total 0.2 mg/dl (0.2-1.3); Blood Urea Nitrogen 18 mg/dl (7-17); Calcium 9.4 mg/dl (8.4-10.2); Carbon Dioxide 30 mmol/L (22.0-30.0); Chloride 100 mmol/L (98-107); Creatinine Clearance Estimated 65 mL/min (50-200); Estimated Glomerular Filt Rate 84 ml/min (>60); GFR (African American) 101 ML/MIN (>60); Glucose 107 mg/dl (74-100); Lipase 156 U/L (23-300); Potassium 3.9 mmoL/L (3.5-5.1); Sodium 136 mmol/L (136-145); Total Protein,Serum 7.7 g/dl (6.3-8.2)
[2021-10-23 22:52] LABS: Procalcitonin 0.047 ng/mL (0.0-2.0)
[2021-10-23 22:54] LABS: Troponin I < 0.01 ng/ml (0.00-0.034)
[2021-10-23 23:00] VITALS: BP 100/57; PULSE 69; O2SAT 93
--- NOTE | 2021-10-23 23:33 | HMH.EDCP ---
ED Disposition Clinical Impression: Atypical chest pain, Mass of left lung Disposition: Home, Self-Care Condition on Discharge: Good Instructions: DI for Atypical Chest Pain Additional Instructions: see pcp for follow up and more eval Referrals: Sepideh Talbot APRN [Primary Care Provider] - - Critical Care Critical Care Time: No Attestation: On 10/23/21, the high probability of a clinically significant, sudden or life threatening deterioration of the following system(s) required my full and direct attention, intervention and personal management. The time I documented below is in addition to time spent performing reported procedures but includes the following listed in this critical care notation. Medical Decision Making - Medical Records Medical records reviewed: Yes: I reviewed the patient's medical records. - Shaheed Inquiry Pt receiving controlled substance: No Vital Signs: 10/23/21 22:07 Temperature 97.6 F Temperature Source Oral Pulse Rate [Left] 66 Respiratory Rate 16 Blood Pressure [Right Arm] 142/89 H Blood Pressure Mean [Right Arm] 106 02 Sat by Pulse Oximetry 97 Oxygen Delivery Method Room Air - Lab Data Lab results reviewed: Yes: I reviewed the patient's lab results. Lab Results 10/23/21 21:55: Troponin I < 0.01, C-Reactive Protein 7.0 H, Amylase 64 10/23/21 21:55: WBC 19.5 H, RBC 4.58, Hgb 15.5, Hct 47.0, MCV 102.7 H, MCH 33.9 H, MCHC 32.9, RDW 13.1, Plt Count 458 H, MPV 8.4, Neut % (Auto) 71.9, Lymph % (Auto) 19.0, Bowie % (Auto) 4.8, Eos % (Auto) 2.9, Baso % (Auto) 1.3, Neut # (Auto) 14.0 H, Lymph # (Auto) 3.7, Bowie # (Auto) 0.9, Eos # (Auto) 0.6 H, Baso # (Auto) 0.3 H 10/23/21 21:55: Sodium 136, Potassium 3.9, Chloride 100, Carbon Dioxide 30, Anion Gap 9.9, BUN 18 H, Creatinine 0.70, Estimated Creat Clear 65, Estimated GFR 84, Est GFR ( Amer) 101, Glucose 107 H, Calcium 9.4, Total Bilirubin 0.2, AST 45 H, ALT 52, Alkaline Phosphatase 99, Total Protein 7.7, Albumin 4.7, Globulin 3.0, Albumin/Globulin Ratio 1.6, Lipase 156, Procalcitonin 0.047 Result diagrams: 10/23/21 21:55 10/23/21 21:55 Orders (Tests/Meds): ED MEDICATIONS Generic Name Dose Route Start Last Admin Trade Name Freq PRN Reason Stop Dose Admin Sodium Chloride 1,000 mls @ 999 mls/hr 10/23/21 22:30 10/23/21 22:30 Sod Chlor 0.9% 1000ml Bag IV 10/23/21 23:30 999 mls/hr .Q1H1M YING Administration Sodium Chloride 8 ml 10/23/21 22:16 Sodium Chloride 0.9% 10ml Vial IV 11/22/21 22:15 NEEDED PRN dilute pepcid Discontinued Medications Generic Name Dose Route Start Last Admin Trade Name Freq PRN Reason Stop Dose Admin Famotidine 20 mg 10/23/21 22:16 10/23/21 22:44 Famotidine 20mg/2ml Vial IV 10/23/21 22:17 20 mg ONCE ONE Administration Ketorolac Tromethamine 30 mg 10/23/21 22:16 10/23/21 22:44 Ketorolac 30mg/Ml Vial IV 10/23/21 22:17 30 mg ONCE ONE Administration Metoclopramide HCl 10 mg 10/23/21 22:16 10/23/21 22:43 Metoclopramide Hcl 10mg/2ml Vial IVP 10/23/21 22:17 10 mg ONCE ONE Administration Ondansetron HCl 4 mg 10/23/21 22:16 10/23/21 22:43 Ondansetron 4mg/2ml Vial IV 10/23/21 22:17 4 mg ONCE ONE Administration ORDERS Category Date Time Status Complete Blood Count Auto Diff Stat Lab 10/23/21 21:55 Results Erythrocyte Sedimentation Rate Stat Lab 10/23/21 21:55 Results Troponin I Q3H Lab 10/24/21 01:30 Ordered Troponin I Q3H Lab 10/24/21 04:30 Ordered Urinalysis and Microscopic Stat Lab 10/23/21 22:16 Ordered - Radiology Data #1 Image(s): Chest Image Reviewed: Yes I have reviewed radiologist's interpretation Preliminary Findings: Abnormal (lt lower mass) - ECG Data Tracing #1 Normal Sinus Rhythm: Yes Ischemic changes: non-specific ST-T wave changes Medical Decision Narrative: improved after meds and has neg card eval in past - abn cxr with ok ct in 02/20 - pt declined w/u tonight - feels better
[2021-10-23 23:54] LABS: Hypochromasia 2+; Lymphocytes % 12 % (10-50); Microcytosis 1+; Monocytes % 10 % (2-9); Neutrophils % 78 % (42-76); Platelet Estimate Normal; Total Cells Counted 100
[2021-10-23 23:57] VITALS: BP 105/64; PULSE 67; RESP 18; TEMP 36.6; O2SAT 95
[2021-10-24 00:58] LABS: Erythrocyte Sedimentation Rate 15 mm/hr (0-30)
== END 2021-10-23 23:59 | disposition home or self-care (01) ==
PROVIDERS: Emergency Provider Emergency Medicine; PCP Nurse Practitioner Family
DX: R91.8 Other nonspecific abnormal finding of lung field (principal); R07.89 Other chest pain; I10 Essential (primary) hypertension; J44.9 Chronic obstructive pulmonary disease, unspecified; K21.9 Gastro-esophageal reflux disease without esophagitis; E78.5 Hyperlipidemia, unspecified; Z79.899 Other long term (current) drug therapy
CPT/HCPCS: 71046; 80053; 82150; 83690; 84145; 84484; 85007; 85025; 85651; 86140; 93005; 96365; 96375; 99283; J2405

== ENCOUNTER → 2021-10-24 08:26 | Outpatient (CLI) | payer BC, SELFPAY ==
--- NOTE | 2021-10-24 08:42 | XR_ITS ---
PROCEDURE: XR DEXA AXIAL SKELETON CLINICAL HISTORY: POST MENOPAUSAL COMPARISON: No exams were available for comparison FINDINGS: The right hip BMD is 0.687 with a T-score of -1.5. The left hip BMD is 0.719 with a T-score of -1.2. The lumbar spine BMD is 0.905 with a T-score of -1.3. IMPRESSION: This patient is considered osteopenic according to the World Health Organization criteria. Bone density is between 10 and 25 percent below young normal. Fracture risk is moderate. Treatment is advised. Based on these results a follow-up exam is recommended in 2 year. Dictated by: Adán Alvarado MD 10/24/2021 12:25 Adán Alvarado MD in [place] 10/24/2021 12:25
--- NOTE | 2021-10-24 08:57 | US_ITS ---
PROCEDURE: US KIDNEY CLINICAL INDICATION: RENAL CYST COMPARISON: US US KIDNEY from 07/31/[address] ABDOMEN PELVIS WO/W CON from 09/12/[address] LUNG SCREENING from 01/23/2021 FINDINGS: The right kidney is [id number]. In the mid polar region of the right kidney there is a 10 mm cyst. There upper pole of the right kidney is difficult to visualize. There however does appear to be a small cyst posteriorly at 10 mm. Better evaluation could be obtained with CT or MRI if clinically desired. No hydronephrosis. The left kidney is [id number]. In the upper pole of the left kidney there is a questionable 8 mm nodule. Cannot confirm cystic characteristics but could be related to the technique and position. IMPRESSION: Somewhat limited exam in evaluation of the upper pole of the kidneys. There are 2 small cysts suspected on the right and a questionable indeterminate in the upper pole on the left. These are not well demonstrated. CT or MRI with renal protocol suggested for more thorough evaluation. No hydronephrosis Dictated by: Adán Alvarado MD 10/25/2021 09:44 Adán Alvarado MD in [place] 10/25/2021 09:44
== END ==
PROVIDERS: PCP Nurse Practitioner Family; Visit Provider Nurse Practitioner Family
DX: N28.1 Cyst of kidney, acquired (principal); Z78.0 Asymptomatic menopausal state
CPT/HCPCS: 76770; 77080

== ENCOUNTER → 2021-10-31 08:57 | Outpatient (CLI) | payer BC, SELFPAY ==
[2021-10-31 10:07] LABS: Blood Urea Nitrogen 14 mg/dl (7-17); Estimated Glomerular Filt Rate 100 ml/min (>60); GFR (African American) 121 ML/MIN (>60)
== END ==
PROVIDERS: Visit Provider Nurse Practitioner Family
DX: R91.8 Other nonspecific abnormal finding of lung field (principal)
CPT/HCPCS: 36415; 82565; 84520

== ENCOUNTER → 2021-11-01 12:24 | Outpatient (CLI) | payer BC, SELFPAY ==
--- NOTE | 2021-11-01 12:27 | CT_ITS ---
PROCEDURE INFORMATION: Exam: CT Chest Without and With Contrast; Diagnostic Exam date and time: 11/01/2021 12:27 PM Age: 66 years old Clinical indication: Abnormal findings; Lung mass or nodule; Not specified; Patient HX: Lung mass vs pneumonia, cough, SOA, tobacco use; Additional info: Lung mass, SOB, tobacco use TECHNIQUE: Imaging protocol: Diagnostic computed tomography of the chest without and with contrast. Total images: 541 Radiation optimization: All CT scans at this facility use at least one of these dose optimization techniques: automated exposure control; mA and/or kV adjustment per patient size (includes targeted exams where dose is matched to clinical indication); or iterative reconstruction. Contrast material: ISOVUE; Contrast volume: 75 ml; Contrast route: IV; COMPARISON: CT CHEST W CON 03/13/2020 11:54 AM FINDINGS: Thyroid: The visualized thyroid gland is unremarkable. Lungs: No acute tracheobronchial abnormalities. Mild centrilobular emphysematous changes in the pulmonary apices. Granulomatous calcification in the right middle lobe. 3.5 mm juxtapleural noncalcified pulmonary nodule in the anterolateral right middle lobe which is unchanged from 03/13/2020 and does not require further assessment. No infiltrates or edema. Pleural spaces: No pleural effusions. No pneumothorax. Heart: Heart size normal. Mild coronary artery calcification. Mediastinal space: The esophagus is largely contracted without gross abnormality. Pulmonary arteries: Mild dilatation of the central pulmonary arteries suggesting mild pulmonary arterial hypertension. Aorta: The aorta demonstrates mild ectasia/tortuosity and mild calcific atherosclerosis. No mediastinal hematoma. Lymph nodes: No supraclavicular or axillary adenopathy. No mediastinal or hilar adenopathy. Bones/joints: No acute osseous abnormalities are identified. Moderate midthoracic spondylosis. Soft tissues: Soft tissues of the thoracic wall demonstrate no acute abnormality. Other findings: Visualized upper abdominal structures are unremarkable. IMPRESSION: 1. No acute thoracic process is identified. 2. There is a 3.5 mm juxtapleural noncalcified pulmonary nodule in the right middle lobe which is unchanged from 03/13/2020 and does not require further assessment. No other pulmonary nodules or mass lesions. 3. No pulmonary infiltrates. 4. Evidence of mild pulmonary arterial hypertension. 5. Mild centrilobular emphysematous changes.
== END ==
PROVIDERS: PCP Nurse Practitioner Family; Visit Provider Nurse Practitioner Family
DX: R06.02 Shortness of breath (principal); R91.1 Solitary pulmonary nodule; F17.200 Nicotine dependence, unspecified, uncomplicated
CPT/HCPCS: 71270; Q9967

== ENCOUNTER → 2021-11-13 10:05 | Outpatient (CLI) | payer BC, SELFPAY ==
--- NOTE | 2021-11-13 10:10 | CT_ITS ---
FINAL REPORT TECHNIQUE: Axial images were obtained from the lung bases through the pubic symphysis before and after the administration of intravenous contrast. Oral contrast was administered. This study was performed with techniques to keep radiation doses as low as reasonably achievable (ALARA). Individualized dose reduction techniques using automated exposure control or adjustment of mA and/or kV according to the patient's size were employed. CLINICAL HISTORY: RENAL MASS COMPARISON: SEPTEMBER 12, 2020 FINDINGS: Precontrast images demonstrate no evidence of nephrolithiasis or hydronephrosis. Abdomen: The lung bases are clear. The liver parenchyma is homogeneous. The spleen, pancreas and adrenal glands are unremarkable. There is moderate vascular calcification. There are multiple small low-attenuation masses in both kidneys. Largest mass in the right kidney measures up to 10 mm. Largest left renal mass measures 10 mm and previously measured 7 mm. Other masses are stable in size and appearance. There are small retroperitoneal lymph nodes without evidence of adenopathy. There is no evidence of bowel obstruction. Pelvis: The appendix is normal. The urinary bladder is unremarkable. There is no mass, free fluid or adenopathy. There has been hysterectomy. IMPRESSION: Slight interval growth of a left posterior renal cyst. Other renal masses are stable and consistent with cysts. Reviewed, Interpreted and Dictated by Kemal Swartz III, MD Transcribed by Kevin Castro Authenticated by Kemal Swartz III, MD on 11/13/2021 11:54:45 AM [facility]
== END ==
PROVIDERS: PCP Nurse Practitioner Family; Visit Provider Nurse Practitioner Family
DX: N28.89 Other specified disorders of kidney and ureter (principal)
CPT/HCPCS: 74178; Q9967

== ENCOUNTER 2022-03-30 09:08 | Emergency (ER) | payer BC, SELFPAY ==
[2022-03-30 09:50] VITALS: BP 164/74; PULSE 60; RESP 18; TEMP 36.8; O2SAT 98; BMI 27.0
--- NOTE | 2022-03-30 10:20 | HMH.EDUTC ---
[facility] [place] Clinical Impression: Conjunctivitis Qualifiers: Conjunctivitis type: unspecified Laterality: left Qualified Code(s): H10.9 - Unspecified conjunctivitis Disposition: Home, Self-Care Condition on Discharge: Good Instructions: Conjunctivitis, DI for Conjunctivitis, Polymyxin B and Trimethoprim Ophthalmic Additional Instructions: Wash hands well before and after application or eye drops in your left eye Follow up with Eye Doctor if no improvement or immediately if any worsening of symptoms Return if needed Straight to ER If any life threatening symptoms Prescriptions: Polymyxin B Sulf/Trimethoprim [Polytrim Eye Drops] 2 drp OP Q6H 7 Days #10 ml Transmission Status: Pending to [id number] Referrals: Sepideh Talbot APRN [Primary Care Provider] - As needed [facility] [Other] Time of Disposition: 10:41 Medical Decision Making - Shaheed Inquiry Pt receiving controlled substance: No Shaheed was queried for this patient: No Vital Signs: 03/30/22 09:50 Temperature 98.2 F Temperature Source Oral Pulse Rate [Right Brachial] 60 Respiratory Rate 18 Blood Pressure [Right Arm] 164/74 H Blood Pressure Mean [Right Arm] 104 Blood Pressure Source [Right Arm] Automatic Cuff Blood Pressure Position [Right Arm] Sitting 02 Sat by Pulse Oximetry 98 Oxygen Delivery Method Room Air [facility] [place] - General Stated complaint: left eye redness Time Seen by Provider: 03/30/22 10:20 Mode of Arrival: Ambulatory Source of Information: Patient Limitations: No Limitations Description of Symptoms (Recalled from Triage Doc. by RN): PATIENT C/O LEFT EYE REDNESS AND PAIN WITH CLEAR DRAINAGE SINCE YESTERDAY MORNING. SHE STATES IT IS SHOOTING PAIN AND CAUSING A HEADACHE. SHE STATES IT FEELS LIKE SOMETHING IS BEHIND HER EYE. DENIES VISION CHANGES HEENT Symptoms (Recalled from RN notes): Yes Resp Symptoms (Recalled from RN notes): No Skin Symptoms (Recalled from RN notes): No MS Symptoms (Recalled from RN notes): No Functional Status (Recalled from RN notes): WNL - History of Present Illness Provider Complaint: Patient states that she had a headache yesterday but not sure if they are related because she gets headache at times But she has been having redness, drainage and matting in her left eye since yesterday States that this morning her eye was matted shut and she had some stringy like drainage from it and States that it feels sore and scratchy States that she was worried that she may have an infection in her eye Denies loss of vision,Denies injury Denies floaters - Related Data Home Medications Medication Instructions Recorded Confirmed Bisoprolol Fumarate [Bisoprolol 5 mg PO DAILY 07/01/19 10/08/20 5mg Tablet] citalopram 20 mg tablet 20 mg PO DAILY 02/17/20 10/08/20 clonidine HCl 0.1 mg tablet 0.1 mg PO DAILY PRN tab 02/17/20 10/08/20 potassium chloride 10 mEq 10 meq PO Q OTHER DAY cap 02/17/20 10/08/20 capsule,extended release pravastatin 20 mg tablet 20 mg PO HS tab 08/07/20 10/08/20 Calcium Carbonate [Calcium] 600 mg PO BID 10/02/20 10/08/20 Cholecalciferol (Vitamin D3) 125 mcg PO DAILY 10/02/20 10/08/20 [Vitamin D3] Mecobalamin [B-12] 2,500 mcg PO DAILY 10/02/20 10/08/20 Olmesartan Medoxomil [Benicar] 5 mg PO DAILY 10/02/20 10/08/20 Pyridoxine HCl (Vitamin B6) 1,000 mg PO DAILY 10/02/20 10/08/20 [Pyridoxine HCl] Ubidecarenone [Coenzyme Q10] 100 mg PO DAILY 10/02/20 10/08/20 Previous Rx's Medication Instructions Recorded amlodipine 2.5 mg tablet See Rx Instructions .ROUTE 05/21/21 .COMPLEX #90 tab Polymyxin B Sulf/Trimethoprim 2 drp OP Q6H 7 Days #10 ml 03/30/22 [Polytrim Eye Drops] Allergies Allergy/AdvReac Type Severity Reaction Status Date / Time acetaminophen [From Tylenol] Allergy Verified 03/30/22 10:09 clarithromycin [From Biaxin] Allergy Verified 03/30/22 10:09 - Worker's Comp Is this a Worker's Comp case?: No [facility] History - Hepatitis A Screen Attest
[2022-03-30 10:43] VITALS: BP 164/74; PULSE 60; RESP 18; TEMP 36.8; O2SAT 98
== END 2022-03-30 10:46 | disposition home or self-care (01) ==
PROVIDERS: Emergency Provider Nurse Practitioner; PCP Nurse Practitioner Family
DX: H10.32 Unspecified acute conjunctivitis, left eye (principal); I10 Essential (primary) hypertension; E78.5 Hyperlipidemia, unspecified; K21.9 Gastro-esophageal reflux disease without esophagitis
CPT/HCPCS: 99212; G0463

== ENCOUNTER → 2022-05-06 07:53 | Outpatient (CLI) | payer BC, SELFPAY ==
[2022-05-06 09:08] LABS: Basophils # 0.1 K/mm3 (0-0.2); Basophils % 0.5 % (0.1-2.0); Eosinophils # 0.4 K/mm3 (0.0-0.4); Eosinophils % 3.2 % (0.1-12.0); Hematocrit 39.1 % (37.0-47.0); Hemoglobin 13.4 g/dL (12.2-16.2); Lymphocytes # 1.9 K/mm3 (0.7-4.5); Lymphocytes % 15.5 % (10-50); Mean Corpuscular HGB Conc 34.3 g/dL (31.8-35.4); Mean Corpuscular Hemoglobin 32.9 pg (27.0-31.2); Monocytes # 0.8 K/mm3 (0.1-1.0); Neutrophils # 8.9 K/mm3 (1.8-7.8); Neutrophils % 73.8 % (37.0-80.0); Platelet Count 394 K/mm3 (142-424); Red Blood Count 4.08 M/mm3 (4.20-5.40)
[2022-05-06 09:15] LABS: Hemoglobin A1C 5.7 % (4.0-6.0)
[2022-05-06 09:21] LABS: Potassium 4.2 mmoL/L (3.5-5.1); Sodium 135 mmol/L (136-145)
[2022-05-06 09:23] LABS: Blood Urea Nitrogen 9 mg/dl (7-17); Estimated Glomerular Filt Rate 123 ml/min (>60); GFR (African American) 149 ML/MIN (>60)
[2022-05-06 09:24] LABS: Alanine Aminotransferase 18 U/L (12-78); Albumin Level 4.3 g/dl (3.5-5.0); Alkaline Phosphatase 105 U/L (38-126); Aspartate Amino Transferase 27 U/L (14-36); Bilirubin,Total 0.8 mg/dl (0.2-1.3); Calcium 9.3 mg/dl (8.4-10.2); Carbon Dioxide 27 mmol/L (22.0-30.0); Cholesterol 171 mg/dl (140-200); Globulin 2.2 g/dL (1.3-3.2); Glucose 111 mg/dl (74-100); Magnesium 1.6 mg/dl (1.6-2.3); Total Protein,Serum 6.5 g/dl (6.3-8.2); Triglycerides 82 mg/dl (30-150); VLDL Cholesterol 16 mg/dL (0-40)
[2022-05-06 09:25] LABS: Chol/HDL Ratio 3.3 (1-3.5); HDL Cholesterol 52 mg/dl (40-60)
[2022-05-06 09:27] LABS: Anion Gap 9.2 mEq/L (5-15); Chloride 103 mmol/L (98-107)
[2022-05-06 11:11] LABS: Vitamin B12 856 pg/mL (239-931)
== END ==
PROVIDERS: PCP Nurse Practitioner Family; Visit Provider Internal Medicine Adolescent Medicine
DX: Z00.00 Encounter for general adult medical examination without abnormal findings (principal); E78.2 Mixed hyperlipidemia; R25.2 Cramp and spasm; R20.2 Paresthesia of skin
CPT/HCPCS: 36415; 80053; 80061; 82607; 83036; 83735; 85025

== ENCOUNTER → 2022-08-14 12:11 | Outpatient (CLI) | payer BC, SELFPAY ==
--- NOTE | 2022-08-14 13:49 | PC.NURSE ---
PFT and 6 Minute Walk Test completed, good effort given, no complaints. Albuterol 0.083% given via HHN, per protocol, Pt tolerated tx well.
== END ==
PROVIDERS: PCP Nurse Practitioner Family; Visit Provider Internal Medicine Pulmonary Disease
DX: R06.09 Other forms of dyspnea (principal)
CPT/HCPCS: 94060; 94618; 94726; 94729

== ENCOUNTER → 2022-08-22 09:16 | Outpatient (CLI) | payer BC, SELFPAY | PROVIDERS: PCP Nurse Practitioner Family; Visit Provider Internal Medicine Pulmonary Disease | DX: R06.02 Shortness of breath (principal) | CPT/HCPCS: 94762 ==

== ENCOUNTER → 2022-10-28 10:26 | Outpatient (CLI) | payer BC, SELFPAY ==
--- NOTE | 2022-10-28 10:28 | MM_ITS ---
PROCEDURE INFORMATION: Exam: MG Bilateral Screening 3D Mammography Exam date and time: 10/28/2022 10:30 AM Age: 67 years old Clinical indication: Screening examination TECHNIQUE: Imaging protocol: Bilateral Screening tomosynthesis and 2D mammography including computer-aided detection (CAD) when performed. COMPARISON: 1. MG MM DIG SCREENING MAMM BI W/CAD 10/14/2021 10:35 AM 2. MG MM DIG SCREENING MAMM BI W/CAD 09/24/2020 8:04 AM FINDINGS: MAMMOGRAPHY: Breast composition: There are scattered areas of fibroglandular density. Mass: None. Architectural distortion: None. Calcifications: No suspicious calcifications. Asymmetric density: None. Skin thickening: None. Axillary adenopathy: None. IMPRESSION: No mammographic evidence of malignancy. Annual screening is recommended unless otherwise clinically indicated. ASSESSMENT: BI-RADS Category 1: Negative
== END ==
PROVIDERS: PCP Nurse Practitioner Family; Visit Provider Nurse Practitioner Family
DX: Z12.31 Encounter for screening mammogram for malignant neoplasm of breast (principal)
CPT/HCPCS: 77063; 77067

== ENCOUNTER → 2022-11-06 08:03 | Outpatient (CLI) | payer BC, SELFPAY ==
--- NOTE | 2022-11-06 08:04 | CT_ITS ---
FINAL REPORT TECHNIQUE: Axial CT images of the chest were obtained without contrast. Low-dose protocol was utilized. CLINICAL HISTORY: lung cancer screening, current smoker, 1 ppd x 50 years COMPARISON: CT chest 11/01/2021 FINDINGS: CT CHEST WITHOUT, LOW DOSE SCREENING CT Di Vol: 2.90 mGy DLP: 104.99 mGy*cm There is no axillary, mediastinal, or hilar adenopathy. The heart size is normal. There is no pleural or pericardial effusion. The lung windows show a 2 mm nodule in the posterior medial aspect of the right lower lobe seen on image 60 of series 4. There is a subpleural 3 mm nodule in the right middle lobe seen on image 54. There is a 4 mm oval nodule in the left lower lobe abutting the major fissure as seen on image 39. These are all stable to 2020. Limited images of the upper abdomen are unremarkable. IMPRESSION: Stable benign appearing nodules. LR Category 2: 12 month follow-up low-dose chest CT is recommended. Reviewed, Interpreted and Dictated by Ruddy Amor MD Transcribed by Liat Kaye Authenticated and [facility]
== END ==
PROVIDERS: PCP Nurse Practitioner Family; Visit Provider Internal Medicine Pulmonary Disease
DX: Z87.891 Personal history of nicotine dependence (principal); Z12.2 Encounter for screening for malignant neoplasm of respiratory organs
CPT/HCPCS: 71271

== ENCOUNTER → 2022-12-15 08:38 | Outpatient (CLI) | payer BC, SELFPAY ==
--- NOTE | 2022-12-15 08:42 | XR_ITS ---
FINAL REPORT TECHNIQUE: Bone densitometry calculations of the lumbar spine and left hip were obtained. CLINICAL HISTORY: post menopause COMPARISON: 10/24/2021 FINDINGS: Using L1-4, the bone mineral density of the spine is 0.879 g/cm2, corresponding to T-score of -1.5. The Z-score is 0.4. No significant change from previous. Using the left hip, the bone mineral density of the femoral neck is 0.723 g/cm2, corresponding to a T-score of -1.1. The Z-score is 0.5. No significant change from previous. NOTE: T-score: Standard deviation compared with peak bone mass of young adult mean. *Following the recommendations of the International Society of Bone densitometry, classification of hip BMD is based on the lower of two T-scores; total hip or femoral neck. IMPRESSION: Diminished bone mineral density of the lumbar spine and left hip consistent with osteopenia. No significant change from previous. FRAX data reports 10 year fracture risk of 8.8% for major osteoporotic fracture and 1.5% for hip fracture. Reviewed, Interpreted and Dictated by Traci Davis MD Transcribed by Kathi Phoenix Authenticated and [facility]
== END ==
PROVIDERS: PCP Nurse Practitioner Family; Visit Provider Nurse Practitioner Family
DX: Z78.0 Asymptomatic menopausal state (principal); Z13.820 Encounter for screening for osteoporosis
CPT/HCPCS: 77080

== ENCOUNTER → 2023-01-13 08:47 | Outpatient (POV) | payer BC, SELFPAY | PROVIDERS: Visit Provider Dermatology | DX: Z00.00 Encounter for general adult medical examination without abnormal findings (principal) ==

== ENCOUNTER → 2023-01-22 08:39 | Outpatient (CLI) | payer BC, SELFPAY ==
--- NOTE | 2023-01-22 08:44 | CT_ITS ---
FINAL REPORT TECHNIQUE: Pre-and postcontrast axial CT images of the abdomen and pelvis were obtained. Coronal reformatted images were also obtained and reviewed.This study was performed with techniques to keep radiation doses as low as reasonably achievable (ALARA). Individualized dose reduction techniques using automated exposure control or adjustment of mA and/or kV according to the patient''''s size were employed. CLINICAL HISTORY: RENAL MASS COMPARISON: 11/13/2021 FINDINGS: CT OF THE ABDOMEN AND PELVIS WITH AND WITHOUT CONTRAST Abdomen: The lung bases are clear. The heart is normal in size. The liver parenchyma is homogeneous. The gallbladder is present. There is a small density within the fundus of the gallbladder which is stable. The spleen is unremarkable. No adrenal mass is present. The pancreas has an unremarkable appearance. There are multiple small cysts in the posterior aspect of the kidneys. Dominant focus in the posterior left kidney measures approximately 11 mm in diameter, stable. No new lesions are identified. There is moderate vascular calcification of the abdominal aorta and iliac vessels. There is no free fluid or adenopathy. No mass or abnormal fluid collection is seen. Pelvis: The appendix is not well-visualized. The urinary bladder is unremarkable. No inflammatory process is seen. There is no evidence of mass or adenopathy. There is no evidence of bowel obstruction. Precontrast imaging demonstrates no evidence of nephrolithiasis. IMPRESSION: Multiple bilateral renal cyst favored to represent benign cysts. Reviewed, Interpreted and Dictated by Irving Hopson MD Transcribed by Kathi Pohenix Authenticated and [facility]
== END ==
PROVIDERS: PCP Nurse Practitioner Family; Visit Provider Nurse Practitioner Family
DX: N28.89 Other specified disorders of kidney and ureter (principal)
CPT/HCPCS: 74178; Q9967

== ENCOUNTER → 2023-02-19 14:22 | Outpatient (CLI) | payer BC, SELFPAY ==
[2023-02-19 15:13] LABS: Basophils # 0.1 K/mm3 (0-0.2); Basophils % 0.5 % (0.1-2.0); Eosinophils # 0.3 K/mm3 (0.0-0.4); Eosinophils % 2.4 % (0.1-12.0); Hematocrit 40.3 % (37.0-47.0); Hemoglobin 13.3 g/dL (12.2-16.2); Lymphocytes # 3.1 K/mm3 (0.7-4.5); Lymphocytes % 21.2 % (10-50); Mean Corpuscular Hemoglobin 32.9 pg (27.0-31.2); Mean Corpuscular Volume 99.8 fl (81-99); Mean Platelet Volume 8.1 fl (7.4-10.4); Monocytes # 0.8 K/mm3 (0.1-1.0); Monocytes % 5.3 % (1.7-9.3); Neutrophils # 10.2 K/mm3 (1.8-7.8); Neutrophils % 70.6 % (37.0-80.0); Platelet Count 397 K/mm3 (142-424); Red Blood Count 4.04 M/mm3 (4.20-5.40); Red Cell Distribution Width 13.5 % (11.5-17.5); White Blood Count 14.5 K/mm3 (4.8-10.8)
[2023-02-19 16:43] LABS: Erythrocyte Sedimentation Rate 26 mm/hr (0-30)
[2023-02-21 14:33] LABS: Peripheral Smear Review Scanned Result
[2023-02-26 09:55] LABS: Interpretation: Negative (.)
[2023-03-08 20:33] LABS: Antinuclear Antibodies, IFA Positive
== END ==
PROVIDERS: PCP Nurse Practitioner Family; Visit Provider Internal Medicine Medical Oncology
DX: D72.829 Elevated white blood cell count, unspecified (principal); D69.9 Hemorrhagic condition, unspecified
CPT/HCPCS: 36415; 81206; 81270; 85025; 85651; 86038; 86140

== ENCOUNTER 2023-02-23 10:55 | Emergency (ER) | payer BC, SELFPAY ==
[2023-02-23 11:10] VITALS: BP 150/87; PULSE 79; RESP 20; TEMP 36.6; O2SAT 98; BMI 28.0
--- NOTE | 2023-02-23 11:20 | EXP.UTC ---
Discharge Plan Disposition Patient Disposition: Home, Self-Care Condition: Good Prescriptions Prescriptions: No Action calcium carbonate-vitamin D3 [Caltrate with Vitamin D3] 600 mg-20 mcg (800 unit) tablet 1 tab PO BID Label Comments: TAKE 1 TABLET BY MOUTH TWICE DAILY pravastatin 40 mg tablet 40 mg PO HS amlodipine 10 mg tablet 10 mg PO DAILY olmesartan 40 mg tablet 40 mg PO DAILY fluticasone propionate 50 mcg/actuation spray,suspension 2 spray intranasal DAILY albuterol sulfate 90 mcg/actuation HFA aerosol inhaler 2 inh inhalation QID PRN (Reason: shortness of breath or wheezing) 90 Days Qty: 8.5 2RF bisoprolol fumarate 5 MG tablet 5 mg PO DAILY clonidine HCl 0.1 mg tablet 0.1 mg PO DAILY PRN (Reason: BLOOD PRESSURE) pyridoxine (vitamin B6) 500 MG tablet 1,000 mg PO DAILY coenzyme Q10 100 mg capsule 100 mg PO DAILY PRN (Reason: Cholesterol) Anoro Ellipta 62.5-25 mcg/actuation blister with device 1 inh inhalation DAILY Referrals Follow up/Referrals: Sepideh Talbot APRN [Primary Care Provider] - See instructions Activity Restrictions/Add. Instructions Additional Instructions/Restrictions: Make sure to watch your fluids that you are drinking no soda Follow up with your Family Doctor if no improvement or any worsening of symptoms Return if needed Straight to ER if any life threatening symptoms Follow up immediately if any worsening of symptoms or pain Clinical Impressions Clinical Impression: Urinary problem Discharge ED Provider: Kate Wellington [facility] [place] HPI General Stated complaint: possible UTI Mode of Arrival: Ambulatory Source of Information: Patient Limitations: No Limitations Time Seen by Provider: 02/23/23 11:21 Description of Symptoms (Recalled from Triage Doc. by RN): wet the bed last night, burning when urinating, frequent urination HEENT Symptoms (Recalled from RN notes): Yes Resp Symptoms (Recalled from RN notes): No Skin Symptoms (Recalled from RN notes): No MS Symptoms (Recalled from RN notes): No Functional Status (Recalled from RN notes): n/a History of Present Illness Provider Complaint: Patient states that she started having urgency and frequency last night and a couple times wasnt able to make it to the bathroom quick enough States that she is also having a little burning at times with urination and pressure on and off in her pelvic area States that that has been going on for awhile now and she had a CT done a couple weeks ago, States that she found a couple pills she had in her medicine cabinet that she has taken for UTI in the past and took them last night and this morning and it is a little better she is not urinating as much. States that she has been seeing her PCP and blood doctor and has had a lot of labs drawn in the last couple of weeks trying to figure out is she may have an auto immune disease States that her white count has been elevated but hasnt had her urine checked so she came in wanting to get her urine checked to see if she may have a UTI Related Data Home Medications Medication Instructions Recorded Confirmed bisoprolol fumarate 5 mg tablet 5 mg PO DAILY BLOOD PRESSURE 07/01/19 02/23/23 clonidine HCl 0.1 mg tablet 0.1 mg PO DAILY PRN BLOOD PRESSURE 02/17/20 02/23/23 pyridoxine (vitamin B6) 500 mg 1,000 mg PO DAILY Supplement 10/02/20 02/23/23 tablet amlodipine 10 mg tablet 10 mg PO DAILY . 02/19/23 02/23/23 calcium carbonate 600 mg-vitamin 1 tab PO BID Supplement 02/19/23 02/23/23 D3 20 mcg (800 unit) tablet (Caltrate with Vitamin D3) coenzyme Q10 100 mg capsule 100 mg PO DAILY PRN Cholesterol 02/19/23 02/23/23 fluticasone propionate 50 2 spray intranasal DAILY . 02/19/23 02/23/23 mcg/actuation nasal spray,suspension olmesartan 40 mg tablet 40 mg PO DAILY . 02/19/23 02/23/23 pravastatin 40 mg tablet 40 mg PO HS . 02/19/23 02/23/23 umeclidinium 62.5 mcg-vilanterol 1 inh inhalation DAILY . 0
[2023-02-23 11:25] LABS: Apearance,Urine Clear (Clear); Bilirubin,Urine Negative (Negative); Blood, Urine 1+ (Negative); Color,Urine Yellow (Yellow); Glucose,Urine (UA) Negative (Negative); Ketones,Urine Negative (Negative); PH,Urine 5.5 (5.0-8.5); Protein,Urine Negative (Negative); Specific Gravity, Urine 1.025 (1.005-1.030); UTC Leukocyte Esterase,Urine Negative (Negative); UTC Nitrate,Urine Negative (Negative); Urobilinogen,Urine 0.2 EU/dl (0.2)
[2023-02-23 11:49] VITALS: BP 150/87; PULSE 79; RESP 20; TEMP 36.6; O2SAT 98
== END 2023-02-23 11:49 | disposition home or self-care (01) ==
PROVIDERS: Emergency Provider Nurse Practitioner; PCP Nurse Practitioner Family
DX: R35.0 Frequency of micturition (principal); R39.15 Urgency of urination; F17.210 Nicotine dependence, cigarettes, uncomplicated
CPT/HCPCS: 81003; 87086; 99212; 99213; G0463

== ENCOUNTER → 2023-05-14 11:27 | Outpatient (CLI) | payer BC, SELFPAY ==
--- NOTE | 2023-05-14 11:36 | XR_ITS ---
FINAL REPORT CLINICAL HISTORY: BRONCHITIS COMPARISON: 10/23/2021 FINDINGS: Two views of the chest were obtained. The heart size and pulmonary vascularity are within normal limits. The mediastinum is normal. Bronchial wall thickening consistent with bronchitis. There is no pneumothorax. The bony thorax is intact. IMPRESSION: Bronchitis Reviewed, Interpreted and Dictated by Kemal Swartz III, MD Transcribed by Liat Kaye Authenticated and [facility]
== END ==
PROVIDERS: PCP Nurse Practitioner Family; Visit Provider Nurse Practitioner Family
DX: J41.1 Mucopurulent chronic bronchitis (principal); B95.2 Enterococcus as the cause of diseases classified elsewhere; B96.89 Other specified bacterial agents as the cause of diseases classified elsewhere
CPT/HCPCS: 71046; 87070; 87077; 87186; 87205

== ENCOUNTER → 2023-06-16 12:00 | Outpatient (CLI) | payer BC, SELFPAY ==
[2023-06-16 14:01] LABS: Chloride 106 mmol/L (98-107)
[2023-06-16 14:02] LABS: Potassium 4.3 mmoL/L (3.5-5.1); Sodium 140 mmol/L (136-145)
[2023-06-16 14:04] LABS: Blood Urea Nitrogen 11 mg/dl (7-17); Estimated Glomerular Filt Rate 100 ml/min (>60); GFR (African American) 121 ML/MIN (>60)
[2023-06-16 14:05] LABS: Anion Gap 10.3 mEq/L (5-15); Calcium 9.4 mg/dl (8.4-10.2); Carbon Dioxide 28 mmol/L (22.0-30.0); Glucose 90 mg/dl (74-100)
[2023-06-20 10:12] LABS: Renin Activity, Plasma 2.379 ng/mL/hr (0.167-5.380)
== END ==
PROVIDERS: PCP Nurse Practitioner Family; Visit Provider Physician Assistant
DX: R06.00 Dyspnea, unspecified (principal); I10 Essential (primary) hypertension; J44.9 Chronic obstructive pulmonary disease, unspecified; Z72.0 Tobacco use
CPT/HCPCS: 36415; 80048; 82088; 84244

== ENCOUNTER → 2023-06-18 07:44 | Outpatient (CLI) | payer BC, SELFPAY ==
[2023-06-22 18:36] LABS: Albumin, U 31.3 % (.); Alpha-1-Globulin, U 7.9 % (.); Alpha-2-Globulin, U 14.4 % (.); Beta Globulin, U 27.7 % (.); Gamma Globulin, U 18.7 % (.); M-Spike, % Not Observed % (Not Observed); Prot,24hr calculated <104 mg/24 hr (30-150); Protein,Total,Urine <4.0 mg/dL (Not Estab.)
[2023-06-26 00:05] LABS: Metanephrine, U,24hr 86 ug/24 hr (36-209); Metanephrine, Ur 33 ug/L (Undefined); Normetanephr.,U,24h 395 ug/24 hr (131-612); Normetanephrine, Ur 152 ug/L (Undefined)
== END ==
PROVIDERS: PCP Nurse Practitioner Family; Visit Provider Physician Assistant
DX: R06.00 Dyspnea, unspecified (principal); I10 Essential (primary) hypertension; J44.9 Chronic obstructive pulmonary disease, unspecified; Z72.0 Tobacco use
CPT/HCPCS: 83835; 84156; 84166

== ENCOUNTER → 2023-07-10 08:27 | Outpatient (CLI) | payer BC, SELFPAY ==
--- NOTE | 2023-07-10 | CA_ITS ---
APPROVED REPORT EXAM: Comprehensive 2D, Doppler, and color-flow Echocardiogram Nurse Staff: KATIE Medina, RVS Ht: 5 ft 5 in Wt: 171lbs BSA: 1.85 BP: 161/75 mmHg Indications: COPD, HTN, HLD, TALIB, Smoker 2D Dimensions IVSd 0.71 cm LVEF (Visual) 46.80 % PWd 0.76 cm LA Volume 70.00 mL LVDd 4.62 cm LA Volume Index 36.80 mL/m2 (M/F) 16-34 LVDs 3.54 cm M-Mode Dimensions RVDd 2.09 cm (0.9-2.6) LA Diam 3.83 cm (1.9-4.0) LVDd 4.79 cm (3.5-5.7) Ao Diam 2.85 cm (2.0-3.7) LVDs 3.61 cm (3.5-5.7) IVSd 0.84 cm (0.6-1.1) PWd 1.03 cm (0.6-1.1) EF (Teich) 48.80% EPSs 0.51 cm FS 24.60% EDV (Teich) 107.00 mL TAPSE 3.15 (<1.7) ESV (Teich) 54.80 mL LV Diastology E Decel Time 177.00 (160-240 msec) E/A Ratio 0.98 MED E' 10.30 (< 7 cm/sec) MED A' 9.00 cm/s E'/MED E' Ratio 11.06 (>14) LAT E' 7.30 (<10 cm/sec) LAT A' 8.20 cm/s E/LAT E' Ratio 15.60 (>14) Aortic Valve LVOT Max 126.00 (70-110 cm/s) LVOT VTI 27.87 cm AoV Peak Huy. 136.00 (50-130 cm/s) AO Peak GR. 7.40 mmHg AO Mean GR. 3.80 (<5 mmHg) AO VTI 32.13 (18-25 cm) Mitral Valve MV A Velocity 116.00 (40-130 cm/s) E/A Ratio 0.98 MV Decel. Time 177.00 (160-240 ms) Pulmonary Valve PV Peak Velocity 89.00 (50-150 cm/s) Left Ventricle The left ventricle is normal size. The left ventricular systolic function is normal. The left ventricular ejection fraction is within the normal range. There is normal left ventricular wall thickness. There is normal LV segmental wall motion. The left ventricular diastolic function is normal. LVEF is 55%. Right Ventricle The right ventricle is normal size. The right ventricular systolic function is normal. Atria The left atrium size is normal. The right atrium size is normal. There is no Doppler evidence of interatrial shunt. Aortic Valve The aortic valve is mildly thickened. There is no aortic valvular stenosis. No aortic regurgitation is present. Mitral Valve There is mild mitral annular calcification (MAC). The mitral valve is mildly thickened. No evidence of mitral valve stenosis. Mild mitral regurgitation. Tricuspid Valve The tricuspid valve leaflets are thin and pliable. Mild tricuspid regurgitation. RVSP is normal. Pulmonic Valve The pulmonary valve is normal in structure. Trace pulmonic regurgitation. Great Vessels The aortic root is normal in size. The ascending aorta is normal in size. IVC is normal in size and collapses >50% with inspiration. Pericardium There is no pericardial effusion. Other Information Study Quality: Fair Conclusion Normal biventricular systolic function. Mild MR. Mild TR. Electronically signed by : Milagro Bailon, 07/14/2023 22:56:21
== END ==
PROVIDERS: PCP Nurse Practitioner Family; Visit Provider Physician Assistant
DX: R06.02 Shortness of breath (principal)
CPT/HCPCS: 93306

== ENCOUNTER → 2023-07-17 10:04 | Outpatient (CLI) | payer BC, SELFPAY ==
--- NOTE | 2023-07-17 10:08 | CA_ITS ---
FINAL REPORT TECHNIQUE: Color Doppler, duplex Doppler and compression sonography of the left lower extremity deep venous systems was performed. CLINICAL HISTORY: Left leg swelling/pain FINDINGS: There is no evidence of deep venous thrombosis from the level of the groin to the calf. The veins are patent and compressible. IMPRESSION: No evidence of deep venous thrombosis left lower extremity. Reviewed, Interpreted and Dictated by Kemal Swartz III, MD Transcribed by Kathi Phoenix Authenticated and [facility]
== END ==
LOC: RT 10:05
PROVIDERS: PCP Nurse Practitioner Family; Visit Provider Physician Assistant
DX: M79.606 Pain in leg, unspecified (principal); M79.89 Other specified soft tissue disorders
CPT/HCPCS: 93971

== ENCOUNTER 2023-08-06 09:13 | Emergency (ER) | payer BC, SELFPAY ==
[2023-08-06 09:20] VITALS: BP 182/81; PULSE 63; RESP 20; TEMP 36.7; O2SAT 97; BMI 26.6
--- NOTE | 2023-08-06 09:44 | EXP.UTC ---
Discharge Plan Disposition Patient Disposition: Home, Self-Care Condition: Good Prescriptions Prescriptions: New methylprednisolone [Medrol (Roman)] 4 mg tablets,dose pack See Rx Instructions .Route .COMPLEX 6 Days Qty: 21 0RF Rx Instructions: taper pack; No Action triamcinolone acetonide 0.1 % ointment 1 applic topical BID Qty: 15 0RF calcium carbonate-vitamin D3 [Caltrate with Vitamin D3] 600 mg-20 mcg (800 unit) tablet 1 tab PO BID Patient Comments: TAKE 1 TABLET BY MOUTH TWICE DAILY pravastatin 40 mg tablet 40 mg PO HS olmesartan 40 mg tablet 40 mg PO DAILY fluticasone propionate 50 mcg/actuation spray,suspension 2 spray intranasal DAILY bisoprolol fumarate 5 mg tablet 5 mg PO BID Qty: 180 3RF Rx Instructions: TAke one tab twice daily albuterol sulfate 90 mcg/actuation HFA aerosol inhaler 2 inh inhalation QID PRN (Reason: shortness of breath or wheezing) 90 Days Qty: 8.5 2RF clonidine HCl 0.1 mg tablet 0.1 mg PO DAILY PRN (Reason: BLOOD PRESSURE) pyridoxine (vitamin B6) 500 MG tablet 1,000 mg PO DAILY coenzyme Q10 100 mg capsule 100 mg PO DAILY PRN (Reason: Cholesterol) Anoro Ellipta 62.5-25 mcg/actuation blister with device 1 inh inhalation DAILY Referrals Follow up/Referrals: Kavon Harp MD [Staff Physician] - See instructions Sigrid Lugo APRN [Nurse Practitioner] - See instructions Sepideh Mcintosh APRN [Primary Care Provider] - See instructions Activity Restrictions/Add. Instructions Additional Instructions/Restrictions: Follow up with pain management for further evaluation and treatment Return if needed Straight to ER if any life threatening symptoms Start oral Medrol pack tomorrow Clinical Impressions Clinical Impression: Sciatica Qualifiers: Laterality: bilateral Qualified Code(s): M54.31 - Sciatica, right side Instructions Patient Instructions: DI for Sciatica Discharge ED Provider: Kate Wellington [facility] General Stated complaint: back pain nerve pain Mode of Arrival: Ambulatory Source of Information: Patient Limitations: No Limitations Time Seen by Provider: 08/06/23 09:58 Description of Symptoms (Recalled from Triage Doc. by RN): PATIENT C/O SCIATIC NERVE PAIN SINCE LAST WEEK HEENT Symptoms (Recalled from RN notes): No Resp Symptoms (Recalled from RN notes): No Skin Symptoms (Recalled from RN notes): No MS Symptoms (Recalled from RN notes): Yes Functional Status (Recalled from RN notes): WNL History of Present Illness Provider Complaint: Patient states that she has a hx of Sciatica and has been having a flare since last week States that the pain is in her lower back and going into bilateral buttock area and into her legs States that she has been taking ibuprofen but not helped much Denies loss of control of bowel or bladder Related Data Home Medications Medication Instructions Recorded Confirmed clonidine HCl 0.1 mg tablet 0.1 mg PO DAILY PRN BLOOD PRESSURE 02/17/20 07/14/23 pyridoxine (vitamin B6) 500 mg 1,000 mg PO DAILY Supplement 10/02/20 07/14/23 tablet calcium carbonate 600 mg-vitamin 1 tab PO BID Supplement 02/19/23 07/14/23 D3 20 mcg (800 unit) tablet (Caltrate with Vitamin D3) coenzyme Q10 100 mg capsule 100 mg PO DAILY PRN Cholesterol 02/19/23 07/14/23 fluticasone propionate 50 2 spray intranasal DAILY . 02/19/23 07/14/23 mcg/actuation nasal spray,suspension olmesartan 40 mg tablet 40 mg PO DAILY . 02/19/23 07/14/23 pravastatin 40 mg tablet 40 mg PO HS . 02/19/23 07/14/23 umeclidinium 62.5 mcg-vilanterol 1 inh inhalation DAILY . 02/23/23 07/14/23 25 mcg/actuation powdr for inhalation (Anoro Ellipta) Previous Rx's Medication Instructions Recorded albuterol sulfate 90 mcg/actuation 2 inh inhalation QID PRN shortness 10/16/22 aerosol inhaler of breath or wheezing 90 days #8.5 grams triamcinolone acetonide 0.1 % 1 applic topical BID To use on the
[2023-08-06 09:52] VITALS: BP 182/81; PULSE 63; RESP 20; TEMP 36.7; O2SAT 97
== END 2023-08-06 10:22 | disposition home or self-care (01) ==
PROVIDERS: Emergency Provider Nurse Practitioner; PCP Nurse Practitioner Family
DX: M54.40 Lumbago with sciatica, unspecified side (principal); F17.210 Nicotine dependence, cigarettes, uncomplicated; J44.9 Chronic obstructive pulmonary disease, unspecified; G47.33 Obstructive sleep apnea (adult) (pediatric); G25.81 Restless legs syndrome
CPT/HCPCS: 96372; 99212; 99214; G0463

== ENCOUNTER 2023-08-28 09:00 | Outpatient (RCR) | payer BC, SELFPAY ==
--- NOTE | 2023-08-19 16:22 | HMH.PTOPEV ---
PT Outpatient Evaluation Rehab PT Outpatient Evaluation Start: 08/18/23 08:50 Freq: Status: Active Protocol: Document 08/18/23 09:21 LYDIA (Rec: 08/18/23 09:33 LYDIA [id number]) E-signed By Mckay Garcia, PT Outpatient Therapy Subjective History Subjective History Patient is a 68 year old female presenting to outpatient PT with reports of chronic LBP with intermittent BLE radicular symptoms L>R. Most recent exacerbation started approx 2 months ago. She has previously completed a round of oral steriods that have provided some significant relief. No recent imaging to report. SI special tests indicate R anterior innominant . Comorbidities include hx of HTN and HL. New diagnosis of cancer in past 12 No months? Chief Complaint Pain,Paresthesia Symptom Type Sharp,Numbness,Tingling Symptoms Relieved By Rest/Positioning,Heat, Prescription Meds Symptoms Aggravated By Standing,Bending/Stooping, Physical Activity,Lifting Prior Functional Limitations None Current Functional Limitations Lifting,Housework,Standing, Walking,Bending/Stooping Symptom Description Constant but Variable Level of pain today (0-10) 9 Pain scale - at its best (0-10) 3 Pain scale - at its worst (0-10) 10 Lumbopelvic Eval Posture Thoracic Spine Posture Standing Position Increased Kyphosis Lumbar Spine Posture Standing Position Increased Lordosis Palapation tenderness bilateral buttock tenderness Yes Lumbar/Sacral Palpation Overall Comment B SIJ 3/4 Accessory Movement L4 bilateral L5 bilateral S1 bilateral Range of Motion Lumbar Spine Active Flexion Range of WNL Motion (degrees) Lumbar Spine Active Extension Range of 18 Motion (degrees) Left Lumbar Spine Lateral Flexion Active 22 Range of Motion (degrees) Right Lumbar Spine Lateral Flexion 18 Active Range of Motion (degrees) Lumbar Spine ROM Limitations Soft Tissue Tightness,Bony Restriction Manual Muscle Test Bilateral Knee Extension Strength Grade 5 Normal Knee Flexion Strength Grade 5 Normal Hip Flexion Strength Grade 5 Normal Extensor Hallucis Longus Strength Grade 5 Normal Ank
== END 2023-08-28 10:15 | disposition home or self-care (01) ==
LOC: PT 09:00
PROVIDERS: PCP Nurse Practitioner Family; Visit Provider Nurse Practitioner Family
DX: M54.32 Sciatica, left side (principal)
CPT/HCPCS: 97010; 97012; 97014; 97110; 97163; 97530; G0283

== ENCOUNTER → 2023-09-03 08:29 | Outpatient (POV) | payer BC, SELFPAY ==
[2023-09-03 09:21] VITALS: BP 166/91; PULSE 63; RESP 18; O2SAT 97; BMI 26.8
--- NOTE | 2023-09-03 09:36 | EXP.PAIN.OV ---
HPI Data of Consult Patient: new to practice Consult date: 09/03/23 Requesting Physician: Sigrid Lugo APRN Primary Care Provider: GRABIEL Kelley Consult Narrative Reason for consult: Low back pain bilateral hip pain History of present illness: Ms. Beyer is a 68 year old female who presents today as a new patient. She is a referral from Elodia Talbot's office. Today she rates her pain an 8 out of 10. Patient states her pain is all in her low back along her bilateral hips and describes it as an aching, throbbing sensation with numbness and tingling. Patient states this has been going on since July unrelated to any specific trauma or injury. She does state that she was lifting 5 gallon buckets of water and aggravated her symptoms. Patient has tried ejch-qko-ocmollc medications such as Tylenol along with heat and ice and topicals with minimal relief. Patient states she cannot do NSAIDs related to GI issues. She does state that she continues to use a heating pad every day for her pain symptoms for temporary relief. She does state that she has been given IM injections of steroids as well as oral steroids that did help somewhat. Patient is currently in physical therapy however she states the traction has not really helped provide any additional relief. Patient does state that she has a longstanding history of low back pain and was in a pain management clinic back in 2013 through in [place] before she moved. Patient does state the pain interferes with her ability perform activities of daily living such as cooking and cleaning. She is interested in any help we may be able to provide. Patient does not have any scheduled medications on her Shaheed. It has been reviewed and is appropriate. CC: Sigrid Lugo APRN [facility] Disclaimer: The information contained in this section may have been updated after the patient was seen, as this information can be updated by other users. Medical History Bilateral leg pain Bilateral otitis externa Chest pain COPD (chronic obstructive pulmonary disease) Daytime somnolence Dyspnea Dyspnea on exertion Eczema of external ear History of sleep apnea Lung nodule Nocturnal hypoxia TALIB (obstructive sleep apnea) Pulmonary emphysema Restless sleeper Sinus bradycardia Smoking greater than 30 pack years Snoring Tobacco abuse Tobacco abuse counseling Tobacco dependence syndrome Weakness Surgical History History of hysterectomy Family History Sister Lung cancer Brother Lung cancer Other Cancer Social History Smoking Status: Current every day smoker tobacco type: cigarettes packs per day: 1 alcohol intake: never substance use type: denies use current occupational status: other Travel in the last 8 weeks: None household members: spouse housing: house caffeine: Yes Review of Systems Review of Systems Review of systems:: pertinent systems reviewed and negative unless documented below Review of systems (narrative): Review of Systems: General: No recent weight changes, no fever, no sleep disturbances Respiratory: No cough, no shortness of air, no recurring pulmonary infections Cardiovascular/peripheral vascular: No chest pain, no palpitations, no edema, no shortness of breath Gastrointestinal: No new onset incontinence, normal bowel movements reported Genitourinary: No new onset incontinence Musculoskeletal: Low back pain, bilateral hip pain Psychiatric: [Normal mood/affect] Neurological: [Denies weakness in extremities], [denies balance issues] Meds Home Medications and Allergies Home Medications Medication Instructions Recorded Confirmed Type clonidine HCl 0.1 mg tablet 0.1 mg PO DAILY PRN BLOOD PRESSURE 02/17/20 09/03/23 History pyridoxi
== END ==
PROVIDERS: PCP Physician Assistant; Visit Provider Nurse Practitioner Family
DX: M54.42 Lumbago with sciatica, left side (principal); M54.41 Lumbago with sciatica, right side; G89.29 Other chronic pain
CPT/HCPCS: 99202; G0463

== ENCOUNTER → 2023-09-03 09:23 | Outpatient (CLI) | payer BC, SELFPAY ==
--- NOTE | 2023-09-03 09:27 | XR_ITS ---
FINAL REPORT CLINICAL HISTORY: LBP COMPARISON: None FINDINGS: LUMBOSACRAL SPINE SERIES Five views of the lumbosacral spine were obtained. There is no fracture present. There is no malalignment. There are moderate to severe degenerative changes in the lower lumbar spine, greatest at L5-S1. Vacuum phenomenon is noted at L4-5 and L5-S1. There are moderate vascular calcifications. IMPRESSION: Moderate to severe degenerative changes without acute process. Reviewed, Interpreted and Dictated by Kemal Swartz III, MD Transcribed by Liat Kaye Authenticated and [facility]
--- NOTE | 2023-09-03 09:27 | XR_ITS ---
FINAL REPORT CLINICAL HISTORY: LBP more right sided pain since July COMPARISON: None FINDINGS: SACROILIAC JOINTS SERIES Three views were obtained. There is no acute fracture or dislocation. There is mild degenerative change of the SI joints. There is degenerative change of the lower lumbar spine, greatest at L5-S1. The visualized bony structures are well aligned. No soft tissue abnormality is seen. IMPRESSION: Degenerative change without acute bony abnormality. Reviewed, Interpreted and Dictated by Kemal Swartz III, MD Transcribed by Liat Kaye Authenticated and [facility]
== END ==
PROVIDERS: PCP Physician Assistant; Visit Provider Nurse Practitioner Family
DX: M54.50 Low back pain, unspecified (principal)
CPT/HCPCS: 72110; 72202

== ENCOUNTER → 2023-09-10 08:24 | Outpatient (CLI) | payer BC, SELFPAY ==
--- NOTE | 2023-09-10 08:24 | US_ITS ---
FINAL REPORT TECHNIQUE: Sonographic images of the right upper quadrant were obtained. CLINICAL HISTORY: RUQ pain COMPARISON: None FINDINGS: PANCREAS: Unremarkable. LIVER: Homogeneous. No focal hepatic lesion. No intrahepatic biliary ductal dilatation. GALLBLADDER: No gallstones. No gallbladder wall thickening or pericholecystic fluid. COMMON DUCT: 3 mm. Normal for age. RIGHT KIDNEY: The right kidney measures 9.6 cm. There is no hydronephrosis, mass, or stone. FREE FLUID: None. IMPRESSION: Unremarkable ultrasound of the right upper quadrant. Reviewed, Interpreted and Dictated by Traci Davis MD Transcribed by Melissa Higginbotham Authenticated and [facility]
== END ==
PROVIDERS: PCP Physician Assistant; Visit Provider Physician Assistant
DX: R10.11 Right upper quadrant pain (principal)
CPT/HCPCS: 76705

== ENCOUNTER 2023-09-15 07:23 | Day surgery (SDC) | payer BC, SELFPAY ==
[2023-09-15 08:10] VITALS: BP 140/77; PULSE 76; RESP 16; TEMP 37; O2SAT 97; BMI 26.6
[2023-09-15 08:26] VITALS: BP 141/84; PULSE 65; PULSE 76; RESP 18; O2SAT 96
--- NOTE | 2023-09-15 08:31 | P.PCN_ITS ---
Procedure Date: 09/15/23 Time: 08:20 Anesthesiologist:: Devaughn Cleaning CRNA Complications:: None Pre-procedure Diagnosis:: Bilateral sacroiliitis Post-procedure Diagnosis:: Same. Indications for Procedure:: Patient is a very pleasant 68-year-old female comes our clinic today for bilateral sacroiliac joint injections. Patient reports low lumbar back pain as well as bilateral posterior hip pain. She has extreme point tenderness over the bilateral sacroiliac joints. She has difficulty transitioning from sitting to standing. She rates her pain 8/10. Procedure Details:: Procedure: Bilateral sacroiliac joint injections under fluoroscopy Informed consent was obtained and the risks and benefits of the procedure were explained to the patient.~ The patient was taken to the procedure room and noninvasive monitors were placed including a noninvasive blood pressure cuff and pulse oximeter.~ The patient was placed prone on the procedure table. Both hips were cleansed using Betadine as a cleansing solution. C-arm fluoroscopy was used to view the right sacroiliac joint.~ The skin and subcutaneous tissues were anesthetized using lidocaine 1.5% and a 25-gauge needle.~ After this, a 22-gauge spinal needle was inserted under fluoroscopic guidance into the inferior aspect of the right sacroiliac joint.~ Omnipaque dye was injected and good spread was seen throughout the joint.~ After this, approximately 5 mL of bupivacaine, 0.25% and Depo-Medrol, 40 mg was incrementally injected into the right sacroiliac joint. We then moved to the left sacroiliac joint.~ The skin and subcutaneous tissues were anesthetized using lidocaine 1.5% and a 25-gauge needle.~ After this, a 22- gauge spinal needle was inserted under fluoroscopic guidance into the inferior aspect of the left sacroiliac joint.~ Omnipaque dye was injected and good spread was seen throughout the joint. After this, approximately 5 mL of bupivacaine, 0.25% and Depo-Medrol, 40 mg was incrementally injected into the left sacroiliac joint.~ The patient tolerated the procedure well with no complications. The patient was observed in the Pain Clinic and then was discharged home neurologically intact. Plan and Disposition:: Patient was discharged without incident.
[2023-09-15 08:41] VITALS: BP 145/67; PULSE 63; RESP 18; O2SAT 97
== END 2023-09-15 08:41 | disposition home or self-care (01) ==
PROVIDERS: PCP Physician Assistant; Visit Provider Nurse Anesthetist, Certified Registered
DX: M46.1 Sacroiliitis, not elsewhere classified (principal)
CPT/HCPCS: 27096; G0260; J1040

== ENCOUNTER → 2023-09-23 08:09 | Outpatient (CLI) | payer BC, SELFPAY ==
[2023-09-23 08:30] LABS: Basophils # 0.1 K/mm3 (0-0.2); Basophils % 0.7 % (0.1-2.0); Eosinophils # 0.5 K/mm3 (0.0-0.4); Eosinophils % 3.2 % (0.1-12.0); Hematocrit 44.3 % (37.0-47.0); Hemoglobin 14.7 g/dL (12.2-16.2); Lymphocytes # 3.2 K/mm3 (0.7-4.5); Lymphocytes % 22.3 % (10-50); Mean Corpuscular HGB Conc 33.2 g/dL (31.8-35.4); Mean Corpuscular Volume 102.4 fl (81-99); Mean Platelet Volume 7.8 fl (7.4-10.4); Monocytes # 0.7 K/mm3 (0.1-1.0); Monocytes % 4.8 % (1.7-9.3); Neutrophils # 9.8 K/mm3 (1.8-7.8); Platelet Count 338 K/mm3 (142-424); Red Blood Count 4.32 M/mm3 (4.20-5.40); Red Cell Distribution Width 13.4 % (11.5-17.5); White Blood Count 14.2 K/mm3 (4.8-10.8)
[2023-09-23 09:08] LABS: Alanine Aminotransferase 27 U/L (12-78); Albumin Level 4.1 g/dl (3.5-5.0); Albumin/Globulin Ratio 1.8 (1.1-1.8); Alkaline Phosphatase 95 U/L (38-126); Anion Gap 9.2 mEq/L (5-15); Aspartate Amino Transferase 29 U/L (14-36); Bilirubin,Total 0.6 mg/dl (0.2-1.3); Blood Urea Nitrogen 13 mg/dl (7-17); Calcium 8.6 mg/dl (8.4-10.2); Carbon Dioxide 27 mmol/L (22.0-30.0); Chloride 101 mmol/L (98-107); Estimated Glomerular Filt Rate 99 ml/min (>60); GFR (African American) 120 ML/MIN (>60); Globulin 2.3 g/dL (1.3-3.2); Glucose 96 mg/dl (74-100); Potassium 4.2 mmoL/L (3.5-5.1); Sodium 133 mmol/L (136-145); Total Protein,Serum 6.4 g/dl (6.3-8.2)
== END ==
PROVIDERS: PCP Physician Assistant; Visit Provider Physician Assistant
DX: D72.829 Elevated white blood cell count, unspecified (principal)
CPT/HCPCS: 36415; 80053; 85025

== ENCOUNTER → 2023-09-30 09:39 | Outpatient (POV) | payer BC, SELFPAY ==
--- NOTE | 2023-09-30 10:59 | EXP.PAIN.SOA ---
[facility] Pain Management SOAP Note Subjective:: Patient is a pleasant 68-year-old female who presents today for follow-up of bilateral SI injections on 09/15/2023. We are currently treating the patient for low back pain, sacroiliitis. Today she rates her pain a 7 out of 10. Patient denies any new trauma or injury. She does state that the injections did provide approximately 80% improvement however they only lasted 1 day. Patient states she was able to increase her activity during the 1 day and felt more functional. Today she does state that her pain has also changed and she is experiencing worsening numbness going down her bilateral legs. She states she continues to have the low back pain that is an aching, throbbing sensation as well. She states her right leg goes all the way down to her foot. Patient does states she is having more difficulty performing activities of daily living such as cooking and cleaning. Patient denies any recent lumbar imaging. Her Shaheed has been reviewed and is appropriate. Review of Systems: General: No recent weight changes, no fever, no sleep disturbances Respiratory: No cough, no shortness of air, no recurring pulmonary infections Cardiovascular/peripheral vascular: No chest pain, no palpitations, no edema, no shortness of breath Gastrointestinal: No new onset incontinence, normal bowel movements reported Genitourinary: No new onset incontinence Musculoskeletal: Low back pain, bilateral leg pain/numbness Psychiatric: [Normal mood/affect] Neurological: [Denies weakness in extremities], [denies balance issues] Objective:: Physical Exam: General: Alert and oriented x3, no acute distress, pleasant and cooperative Lungs: Respirations even and unlabored, symmetrical chest expansion Eyes: PERRL Musculoskeletal: Flexion and extension of lumbar [spine] somewhat guarded secondary to pain, [antalgic gait noted] Neurological: Speech clear, no gross sensory deficit Assessment:: Low back pain with lumbar radiculopathy symptoms, sacroiliitis Plan:: Patient is experiencing worsening pain in her low back with radiating symptoms down into her bilateral lower extremities. Patient did have limited range of motion of her lumbar spine during today's visit. I have discussed with the patient that she may benefit from a lumbar epidural steroid injection. Risk and benefits were discussed with the patient and she would like to proceed forward with this plan of care. Patient is not on any blood thinners. I have also discussed with the patient that I will order MRI imaging without contrast of her lumbar spine. Patient has tried and failed conservative therapy such as oral medication, heat and ice, topicals, physical therapy, at home stretching exercise for longer than 6 weeks. Patient will be scheduled for an LESI L4-L5. All epidurals are done under fluoroscopic guidance to confirm placement. Patient has been counseled to contact our office with any questions or concerns before their next appointment date. This note has been dictated using voice recognition software and may contain errors or omissions. Dr. Harp has read this note and agrees with this plan of care. [facility] Disclaimer: The information contained in this section may have been updated after the patient was seen, as this information can be updated by other users. Medical History Bilateral leg pain Bilateral otitis externa Chest pain COPD (chronic obstructive pulmonary disease) Daytime somnolence Dyspnea Dyspnea on exertion Eczema of external ear History of sleep apnea Lung nodule Nocturnal hypoxia TALIB (obstructive sleep apnea) Pulmonary emphysema Restless sleeper Sinus bradycardia Smoking greater than 30 pack years Snoring Tobacco abuse Tobacco abuse counseling Tobacco dependence syndrome Weakness Surgical History History of hysterectomy Family History (Revi
[2023-09-30 12:20] VITALS: BP 120/73; PULSE 65; RESP 18; O2SAT 96; BMI 26.6
== END ==
PROVIDERS: PCP Physician Assistant; Visit Provider Nurse Practitioner Family
DX: M54.16 Radiculopathy, lumbar region (principal); M54.50 Low back pain, unspecified; M46.1 Sacroiliitis, not elsewhere classified
CPT/HCPCS: 99212; G0463

== ENCOUNTER → 2023-10-01 09:55 | Outpatient (CLI) | payer BC, SELFPAY ==
--- NOTE | 2023-10-01 09:59 | NM_ITS ---
FINAL REPORT CLINICAL HISTORY: Right upper quadrant pain COMPARISON: None FINDINGS: Sequential anterior projection images of the abdomen were obtained after the intravenous injection of 7.93 mCi technetium 99m Choletec. There is normal uptake of radiotracer by the liver. The bile ducts are visualized by 10 minutes. Gallbladder activity is seen by 35 minutes. Bowel activity is noted by 15 minutes. After 1 hour, 1.5 ?g of CCK was injected intravenously for calculation of gallbladder ejection fraction. The CCK injection did reproduce right upper quadrant pain. The gallbladder ejection fraction is 16% %, which is abnormally low. IMPRESSION: CCK injection produced right upper quadrant pain. Depressed gallbladder ejection fraction of 16%. Reviewed, Interpreted and Dictated by Irving Hopson MD Transcribed by Melissa Higginbotham Authenticated and [facility]
== END ==
PROVIDERS: PCP Physician Assistant; Visit Provider Physician Assistant
DX: R10.11 Right upper quadrant pain (principal)
CPT/HCPCS: 78227; A9537; J2805

== ENCOUNTER → 2023-10-08 12:20 | Outpatient (CLI) | payer BC, SELFPAY ==
[2023-10-08 13:15] LABS: Basophils # 0.1 K/mm3 (0-0.2); Basophils % 0.4 % (0.1-2.0); Eosinophils # 0.2 K/mm3 (0.0-0.4); Eosinophils % 1.3 % (0.1-12.0); Hematocrit 42.7 % (37.0-47.0); Hemoglobin 14.3 g/dL (12.2-16.2); Lymphocytes # 2.5 K/mm3 (0.7-4.5); Lymphocytes % 19.5 % (10-50); Mean Corpuscular HGB Conc 33.4 g/dL (31.8-35.4); Mean Corpuscular Hemoglobin 34.5 pg (27.0-31.2); Mean Corpuscular Volume 103.1 fl (81-99); Mean Platelet Volume 8.9 fl (7.4-10.4); Monocytes # 0.6 K/mm3 (0.1-1.0); Neutrophils # 9.4 K/mm3 (1.8-7.8); Neutrophils % 73.8 % (37.0-80.0); Platelet Count 340 K/mm3 (142-424); Red Blood Count 4.14 M/mm3 (4.20-5.40); Red Cell Distribution Width 13.6 % (11.5-17.5); White Blood Count 12.7 K/mm3 (4.8-10.8)
[2023-10-08 13:40] LABS: Chloride 101 mmol/L (98-107); Sodium 133 mmol/L (136-145)
[2023-10-08 13:41] LABS: Potassium 4.3 mmoL/L (3.5-5.1)
[2023-10-08 13:43] LABS: Alanine Aminotransferase 25 U/L (12-78); Alkaline Phosphatase 62 U/L (38-126); Amylase 37 U/L (30-110); Anion Gap 8.3 mEq/L (5-15); Aspartate Amino Transferase 31 U/L (14-36); Bilirubin,Total 0.6 mg/dl (0.2-1.3); Blood Urea Nitrogen 15 mg/dl (7-17); Calcium 8.8 mg/dl (8.4-10.2); Carbon Dioxide 28 mmol/L (22.0-30.0); Estimated Glomerular Filt Rate 83 ml/min (>60); GFR (African American) 101 ML/MIN (>60); Glucose 153 mg/dl (74-100); Lipase 84 U/L (23-300)
[2023-10-08 13:44] LABS: Albumin/Globulin Ratio 1.9 (1.1-1.8); Globulin 2.1 g/dL (1.3-3.2); Total Protein,Serum 6.1 g/dl (6.3-8.2)
[2023-10-09 09:28] LABS: HBsAg Screen Negative (Negative); HCV Ab Non Reactive (Non Reactive); Hep A Ab, IGM Negative (Negative); Hep B Core Ab, IgM Negative (Negative)
== END ==
PROVIDERS: PCP Physician Assistant; Visit Provider Surgery
DX: R10.11 Right upper quadrant pain (principal)
CPT/HCPCS: 36415; 80053; 80074; 82150; 83690; 85025

== ENCOUNTER 2023-10-16 11:00 | Day surgery (SDC) | payer BC, SELFPAY ==
[2023-10-16 11:25] VITALS: BP 137/83; PULSE 60; RESP 16; TEMP 36.3; O2SAT 98; BMI 26.6
[2023-10-16 11:42] VITALS: BP 153/66; PULSE 64; O2SAT 97
[2023-10-16 11:45] VITALS: BP 144/61; BP 153/66; PULSE 50; PULSE 62; RESP 16; O2SAT 97; O2SAT 98
--- NOTE | 2023-10-16 12:07 | EXP.PAIN.PRO ---
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 Post-procedure Diagnosis:: Same. Indications for Procedure:: Patient is a very pleasant 68-year-old female comes our clinic today for lumbar epidural steroid injection. Patient describes low back pain as constant, dull, aching. Patient also complained of bilateral hip and leg radicular symptoms. She rates her pain 7/10. Procedure Details:: Procedure: Lumbar epidural steroid injection under fluoroscopy Informed consent was obtained and the risks and benefits of the procedure were explained to the patient. The patient was taken to the procedure room and noninvasive monitors placed, including noninvasive blood pressure cuff and pulse oximeter. The back was viewed using C-arm Fluoroscopy and prepped using Chloraprep as a cleansing solution and the L4-L5 interspace was palpated. Skin and subcutaneous tissues were anesthetized using lidocaine 1.5% and a 25-gauge needle. After this, an 18-gauge Touhy epidural needle was placed into the L4-L5 interspace and advanced using fluoroscopic guidance and loss of resistance to air until the epidural space was encountered. After confirmation of needle placement in the epidural space, with dye, a solution containing normal saline, 3 mL and Depo-Medrol 80 mg were incrementally injected into the lumbar epidural space. The patient tolerated the procedure well with no complications. The patient was observed in the Pain Clinic and then discharged home neurologically intact. Plan and Disposition:: Patient was discharged without incident.
== END 2023-10-16 11:45 | disposition home or self-care (01) ==
LOC: SC.PAINP 11:00
PROVIDERS: PCP Physician Assistant; Visit Provider Nurse Anesthetist, Certified Registered
DX: M51.16 Intervertebral disc disorders with radiculopathy, lumbar region (principal)
CPT/HCPCS: 62323; J1040

== ENCOUNTER → 2023-10-21 08:17 | Outpatient (CLI) | payer BC, SELFPAY ==
--- NOTE | 2023-10-21 08:17 | CT_ITS ---
FINAL REPORT TECHNIQUE: After the administration of oral and intravenous contrast, axial images were obtained through the abdomen and pelvis by computed tomography. The study was performed with techniques to keep radiation dose as low as reasonably achievable, (ALARA). Individual dose reduction techniques using automated exposure control or adjustment of mA and/or kV according to the patient's size were employed. CLINICAL HISTORY: Right upper quad pain COMPARISON: 01/22/2023 FINDINGS: Abdomen: The lung bases are clear. The liver parenchyma is homogeneous. There is a small nodular density in the fundus of the gallbladder, which is stable since the prior CT of December. The spleen, pancreas, and adrenals appear unremarkable. The aorta is normal in caliber. There is no free fluid or adenopathy. There are bilateral benign-appearing renal cysts identified, stable since the prior CT. Pelvis: The appendix is not identified. The urinary bladder is decompressed. There is no free fluid or adenopathy. The uterus is not visualized. IMPRESSION: Multiple bilateral renal cysts, stable since the prior CT of December 2022. Small nodular density in the fundus of the gallbladder, stable since the prior CT of December. Reviewed, Interpreted and Dictated by Irving Hopson MD Transcribed by Melissa Higginbotham Authenticated and [facility]
== END ==
PROVIDERS: PCP Physician Assistant; Visit Provider Surgery
DX: R10.11 Right upper quadrant pain (principal)
CPT/HCPCS: 74177; Q9967

== ENCOUNTER → 2023-10-27 07:30 | Outpatient (CLI) | payer BC, SELFPAY ==
--- NOTE | 2023-10-27 | CA_ITS ---
APPROVED REPORT Exam: Pharmacologic Technologist: Aby Rowan, Ht: 5 ft 5 in Wt: 165 lbs BSA: 1.82 m2 HR: 68 bpm BP: 131/87 mmHg Rhythm: NSR Medical History Medications: Amlodipine,,,,, Clonidine,,,,, Pravastatin,,,,, Albuterol,,,,, Ibuprofen,,,,, BisOPROLOL Fumarate,,,,, ANoro,,,,, Olmesartan,,,,, Vit B6,,,,, Cardiac Risk Factors: HTN, Hyperlipidemia, Smoking Stress Test Details Test: LEXISCAN HR Resting HR: 69 bpm Max Heart Rate (APMHR): 152 bpm Max HR Achieved: 91 bpm Target HR (85% APMHR): 129 bpm % of APMHR: 60 Recovery HR: 78 bpm BP Resting BP: 131/87 mmHg Max BP: 159/69 mmHg Recovery BP: 150.0/80.0 mmHg ECG Resting ECG: NSR Stress ECG: No significant ST changes Arrhythmia: None Clinical Exercise duration: 04:00 min Highest Stage Achieved: Stress ECG Conclusion During lexiscan pt experince dyspnea. No arrhythmias noted. No significant ST changes Conclusion: EKG portion of test is unremarkable due to lexiscan infusion. Myoview images are reported separately. Test Summary REST . . . . . . . Sitting REST 01:05 . . 69 . 131/ 87 . . Stage 1 . . . . . . . Myoview Injected Stage 1 01:00 . . 90 . . . . Stage 2 01:00 . . 84 . . . . Stage 3 01:00 . . 86 . 159/ 69 . . Stage 4 01:00 . . 77 . 132/ 82 . Stop exercise at 04:00 RECOVERY 01:00 . . 82 . 126/ 64 . . RECOVERY 02:00 . . 81 . 150/ 80 . . RECOVERY 03:00 . . 83 . 140/ 78 . . RECOVERY 03:09 . . 82 . 146/ 74 . . Electronically signed by : Milagro Bailon MD 10/28/2023 12:46:13
--- NOTE | 2023-10-27 07:38 | NM_ITS ---
APPROVED REPORT Exam: Nuclear Stress Test Indication: hypertension..high cholesterol..tobacco user Patient Location: Outpatient Stress Tech: Aby BENSON Tech:Namrata WildeANTONINO RT(R)(N) Ht: 5 ft 5 in Wt: 165 lbs Bra Size: 40d HR: 69 bpm BP: 131/87 mmHg BSA: 1.82 m2 TID: 1.28 BMI: 27.4 History: hypertension..high cholesterol..tobacco user Procedure: Patient received 0.4 mg of intravenous Lexiscan, resting heart rate 69 bpm, resting blood pressure 131/87 mmHg, with Lexiscan maximum heart rate achieved was 91 bpm which is 85 % of the maximum predicted heart rate and blood pressure was 159/69 mmHg. With Lexiscan, patient denied any complaint of chest pain. Cardiac Stress and Resting SPECT Images: Cardiac Stress and Resting SPECT images were obtained using technetium 99m Myoview 32.0 mCi stress and 10.98 mCi at rest. Resting and stress imaging in supine and prone positions demonstrate no evidence of fixed or reversible perfusion defects. There is increased transient ischemic dilatation ratio (TID 1.28), suggestive of possible multivessel disease or balanced ischemia. Gated imaging demonstrates normal global and regional LV systolic function. LVEF is calculated at 66%. Conclusion: No evidence of fixed or reversible perfusion defects. There is increased transient ischemic dilatation ratio (TID 1.28), suggestive of possible multivessel disease or balanced ischemia. Gated imaging demonstrates normal global and regional LV systolic function. LVEF is calculated at 66%. Electronically signed by : Milagro Bailon MD 10/28/2023 12:47:44
== END ==
PROVIDERS: PCP Physician Assistant; Visit Provider Nurse Practitioner
DX: Z01.810 Encounter for preprocedural cardiovascular examination (principal); R06.00 Dyspnea, unspecified; R07.9 Chest pain, unspecified; I10 Essential (primary) hypertension; J44.9 Chronic obstructive pulmonary disease, unspecified; M79.606 Pain in leg, unspecified; M79.89 Other specified soft tissue disorders; Z72.0 Tobacco use
CPT/HCPCS: 78452; 93017; 93018; A9502; J2785

== ENCOUNTER → 2023-10-28 16:08 | Outpatient (CLI) | payer BC, SELFPAY ==
--- NOTE | 2023-10-28 16:11 | MR_ITS ---
FINAL REPORT CLINICAL HISTORY: LBP COMPARISON: None FINDINGS: Multiplanar MR imaging of the lumbar spine was performed without contrast. On the sagittal T2-weighted images, there is abnormal decreased signal throughout the lumbar discs. There is advanced degenerative narrowing of the L5-S1 disc. The vertebrae are of normal height. The vertebral alignment is normal. T12-L1: There is no significant canal stenosis or neural foraminal narrowing. L1-2: A small annular bulge is present with mild bilateral neural foraminal narrowing. L2-3: There are posterolateral disc protrusions, eccentric to both the right and the left, with moderate right and severe left neural foraminal narrowing. L3-4: A small annular bulge is present with a right posterolateral disc protrusion and mild right neural foraminal narrowing. L4-5: A small to moderate-sized annular bulge is present, with moderate right and mild left neural foraminal narrowing. L5-S1: There is a small annular bulge with endplate hypertrophy and moderate to severe bilateral neural foraminal narrowing. IMPRESSION: Multilevel degenerative change in the lumbar spine, with moderate to severe bilateral neural foraminal narrowing predominantly at the L2-3 and L5-S1 levels. Reviewed, Interpreted and Dictated by Irving Hopson MD Transcribed by Melissa Higginbotham Authenticated and . [facility]
== END ==
LOC: RAD 16:08
PROVIDERS: PCP Physician Assistant; Visit Provider Nurse Practitioner Family
DX: M54.50 Low back pain, unspecified (principal)
CPT/HCPCS: 72148; 76376

== ENCOUNTER → 2023-11-03 13:32 | Outpatient (POV) | payer BC, SELFPAY ==
[2023-11-03 13:56] VITALS: BP 130/76; PULSE 70; RESP 18; O2SAT 97; BMI 25.7
--- NOTE | 2023-11-03 14:07 | EXP.PAIN.SOA ---
[facility] Pain Management SOAP Note Subjective:: Patient is a very pleasant 68-year-old female comes our clinic today for follow-up visit after receiving lumbar epidural steroid injection at the L4-5 level. Patient reports no relief in terms of her overall low back pain as well as bilateral hip and leg radicular symptoms. Patient status post bilateral sacroiliac joint injections on 1114 with minimal relief. Status post lumbar epidural steroid injection at the L4-5 level on 10/16/2023. Patient's lumbar MRI shows degenerative disc lumbar spine multilevels. Bilateral neuroforaminal narrowing at L2-3 and L5-S1. Patient requesting neurosurgery consultation. I think this would be reasonable. We will set this up for her. Objective:: Patient is awake alert [place] x 3. In no acute distress. Flexion-extension lumbar spine somewhat guarded secondary to pain. Deep tendon reflexes upper and lower extremities normal. Motor strength upper and lower extremities normal. There is no gross sensory deficit. Gait is normal. Assessment:: Degenerative disc lumbar spine multilevels. Lumbar radiculopathy. Plan:: We will arrange for the patient to have neurosurgery consultation at the [facility]. [facility] Disclaimer: The information contained in this section may have been updated after the patient was seen, as this information can be updated by other users. Medical History Bilateral leg pain Bilateral otitis externa Chest pain COPD (chronic obstructive pulmonary disease) Daytime somnolence Dyspnea Dyspnea on exertion Eczema of external ear Encounter for cholecystectomy Encounter for pre-operative cardiovascular clearance History of sleep apnea Lung nodule Nocturnal hypoxia TALIB (obstructive sleep apnea) Pulmonary emphysema Restless sleeper Sinus bradycardia Smoking greater than 30 pack years Snoring Tobacco abuse Tobacco abuse counseling Tobacco dependence syndrome Weakness Surgical History History of hysterectomy Family History Sister Lung cancer Brother Lung cancer Other Cancer Social History Smoking Status: Current every day smoker tobacco type: cigarettes packs per day: 1 alcohol intake: never substance use type: denies use current occupational status: retired Travel in the last 8 weeks: None household members: spouse housing: house caffeine: Yes
== END ==
LOC: SC.PAIN 13:33
PROVIDERS: PCP Physician Assistant; Visit Provider Nurse Anesthetist, Certified Registered
DX: M51.16 Intervertebral disc disorders with radiculopathy, lumbar region (principal)
CPT/HCPCS: 99212; G0463

== ENCOUNTER → 2023-11-09 11:00 | Day surgery (SDC) | payer BC, SELFPAY ==
[2023-11-09 08:10] VITALS: BMI 27.6
[2023-11-09 08:23] VITALS: BP 152/88; PULSE 70; PULSE 76; RESP 17; O2SAT 97
[2023-11-09 08:35] LABS: Basophils # 0.1 K/mm3 (0-0.2); Basophils % 0.7 % (0.1-2.0); Eosinophils # 0.4 K/mm3 (0.0-0.4); Eosinophils % 3.2 % (0.1-12.0); Hematocrit 42.9 % (37.0-47.0); Hemoglobin 14.5 g/dL (12.2-16.2); Lymphocytes # 2.6 K/mm3 (0.7-4.5); Lymphocytes % 21.2 % (10-50); Mean Corpuscular HGB Conc 33.8 g/dL (31.8-35.4); Mean Corpuscular Hemoglobin 34.7 pg (27.0-31.2); Mean Corpuscular Volume 102.8 fl (81-99); Mean Platelet Volume 8.2 fl (7.4-10.4); Monocytes # 0.7 K/mm3 (0.1-1.0); Monocytes % 5.6 % (1.7-9.3); Neutrophils # 8.7 K/mm3 (1.8-7.8); Neutrophils % 69.3 % (37.0-80.0); Platelet Count 383 K/mm3 (142-424); Red Blood Count 4.17 M/mm3 (4.20-5.40); Red Cell Distribution Width 13.6 % (11.5-17.5); White Blood Count 12.5 K/mm3 (4.8-10.8)
[2023-11-09 08:42] LABS: Chloride 108 mmol/L (98-107); Potassium 4.3 mmoL/L (3.5-5.1); Sodium 139 mmol/L (136-145)
[2023-11-09 08:45] LABS: Anion Gap 13.3 mEq/L (5-15); Blood Urea Nitrogen 18 mg/dl (7-17); Calcium 9.2 mg/dl (8.4-10.2); Carbon Dioxide 22 mmol/L (22.0-30.0); Creatinine Clearance Estimated 64 mL/min (50-200); Estimated Glomerular Filt Rate 99 ml/min (>60); GFR (African American) 120 ML/MIN (>60); Glucose 106 mg/dl (74-100)
--- NOTE | 2023-11-09 10:49 | SUR.PREOP ---
Rounded on patient; patient requesting to know of a time frame on when we would be taking her for her procedure. Patient informed we had a critical patient come in and I was unsure how much longer it would be. Patient requesting to leave. Patient does not know if she wants to reschedule or not; patient given instructions and information on how to reschedule.
[2023-11-09] MEDS: diphenhydrAMINE 50MG/ML VIAL 50 MG IV (10:51)
--- NOTE | 2023-11-09 15:40 | SUR.OPER ---
Patient refused to wait, and left the hospital, stated she would just reschedule.
== END | disposition home or self-care (01) ==
PROVIDERS: PCP Physician Assistant; Visit Provider Internal Medicine
DX: Z53.29 Procedure and treatment not carried out because of patient's decision for other reasons (principal); I20.89 Other forms of angina pectoris
CPT/HCPCS: 80048; 85025

== ENCOUNTER 2023-11-17 09:59 | Day surgery (SDC) | payer BC, SELFPAY ==
[2023-11-17] VITALS (10 sets, daily range): BP systolic 101–148; BP diastolic 58–83; PULSE 58–79; RESP 17–19; TEMP 36.9; O2SAT 90–98; BMI 27.6
--- NOTE | 2023-11-17 | IR_ITS ---
APPROVED REPORT Patient Location: Outpatient Telecommunications Field Engineer: ANTONINO Noble RT (R) PROCEDURES Left heart catheterization Left ventriculogram Selective coronary angiogram INDICATION High risk abnormal Myoview, Preop, Informed consent was obtained prior to the procedure. COMPLICATIONS None Estimated Blood Loss: Less than 10 ml TECHNIQUE One percent lidocaine used to anesthetize the right anterior aspect of the wrist. The right radial artery was accessed via the Seldinger technique. A 6 Welsh sheath was placed in the right radial artery. 2.5 mg of Verapamil, 800 mcg of nitroglycerin, 1mg Lidocaine and 5000 U Heparin were given through the arterial sheath. The papa catheter was also used to perform left heart catheterization, left ventriculogram and selective coronary angiogram. At the end of the procedure the sheath was removed good hemostasis was achieved using Traclet band, patient was transferred to the postop holding area in stable condition. ANGIOGRAPHIC RESULTS The left main artery Normal The left anterior descending artery Normal The circumflex artery Normal The right coronary artery Dominant normal The TODD ventriculogram reveals Hyperdynamic 75% The left ventricular end-diastolic pressure 25 mmHg IMPRESSION Normal coronary arteries Hyperdynamic ventricle Elevated LVEDP PLAN 1. Medical management for diastolic dysfunction 2. Patient is alone acceptable risk to proceed with elective surgery Electronically signed by : Keny Sanderson MD 11/17/2023 12:23:23
[2023-11-17] MEDS: NITROGLYCERIN 800MCG/8ML SYR (CATH LAB) 800 MCG IA (12:08)
[2023-11-17] MEDS: VERAPAMIL 2.5MG/ML 2ML VIAL 2.5 MG IV (12:08)
[2023-11-17] MEDS: diphenhydrAMINE 50MG/ML VIAL 50 MG IV (12:08)
[2023-11-17] MEDS: 0.9 % SODIUM CHLORIDE 500 ML 25 ML IV (12:09)
[2023-11-17] MEDS: HEPARIN 1,000 UNITS/500ML NS (CATH LAB) 3000 UNIT IV (12:09)
[2023-11-17] MEDS: HEPARIN 1,000 UNITS/ML 10ML VIAL (CATH LAB) 10000 UNIT IV (12:09)
[2023-11-17] MEDS: LIDOCAINE 1% 10ML MDV 20 ML IJ (12:09)
[2023-11-17] MEDS: MIDAZOLAM HCL 1MG/1ML 5ML VIAL 1 MG IV (12:21)
[2023-11-17] MEDS: FENTANYL 100MCG/2ML VIAL 50 MCG IV (12:22)
[2023-11-17] MEDS: IOPAMIDOL-370 (76%);100ML BOTTLE 60 ML IV (12:35)
== END 2023-11-17 14:43 | disposition home or self-care (01) ==
PROVIDERS: PCP Physician Assistant; Visit Provider Internal Medicine
DX: R94.39 Abnormal result of other cardiovascular function study (principal); I20.89 Other forms of angina pectoris; I10 Essential (primary) hypertension; J44.9 Chronic obstructive pulmonary disease, unspecified; F17.210 Nicotine dependence, cigarettes, uncomplicated; E78.5 Hyperlipidemia, unspecified; Z79.899 Other long term (current) drug therapy
CPT/HCPCS: 93458; 99152; C1725; C1760; C1769; J1644; Q9967

== ENCOUNTER 2023-12-06 07:30 | Emergency (ER) | payer BC, SELFPAY ==
--- NOTE | 2023-12-06 07:28 | ECG_ITS ---
APPROVED REPORT Exam: Resting ECG HR:89 bpm ECG Measurements Heart Rate 89 AXES WI 132 P 76 QRSd 79 QRS 86 QT 321 T 73 QTc 368 Conclusion SINUS RHYTHM Borderline RAD BORDERLINE ECG UNCONFIRMED REPORT Electronically signed by : Leroy Coyle MD 12/06/2023 14:32:17
--- NOTE | 2023-12-06 07:31 | XR_ITS ---
PROCEDURE INFORMATION: Exam: XR Chest Exam date and time: 12/06/2023 7:32 AM Age: 68 years old Clinical indication: Cough and shortness of breath; Additional info: Cough, SOA. Copd. Smoker TECHNIQUE: Imaging protocol: Radiologic exam of the chest. Views: 1 view. COMPARISON: CR XR CHEST 2V 05/14/2023 11:46 AM FINDINGS: Lungs: Unremarkable. No consolidation. Pleural spaces: Unremarkable. No pleural effusion. No pneumothorax. Heart/Mediastinum: Unremarkable. No cardiomegaly. Bones/joints: Unremarkable. IMPRESSION: No acute findings.
[2023-12-06 07:35] VITALS: BP 168/80; PULSE 87; RESP 20; TEMP 36.6; O2SAT 88; BMI 27.6
--- NOTE | 2023-12-06 07:35 | PC.NURSE ---
Dr. Ronquillo at [facility] for pt eval
--- NOTE | 2023-12-06 07:36 | PC.NURSE ---
Notified RT of VBG order
--- NOTE | 2023-12-06 07:37 | HMH.EDGENADL ---
Discharge Plan Disposition Patient Disposition: Home, Self-Care Condition: Good Prescriptions Prescriptions: New prednisone 50 mg tablet 50 mg PO DAILY 5 Days Qty: 5 0RF levofloxacin 750 mg tablet 750 mg PO DAILY 7 Days Qty: 7 0RF No Action pravastatin 40 mg tablet 40 mg PO HS olmesartan 40 mg tablet 40 mg PO DAILY bisoprolol fumarate 5 mg tablet 5 mg PO BID Qty: 180 3RF Rx Instructions: TAke one tab twice daily verapamil 100 mg capsule, [address] 100 mg PO HS Qty: 30 2RF hydrochlorothiazide 25 mg tablet 25 mg PO DAILY Qty: 30 2RF albuterol sulfate 90 mcg/actuation HFA aerosol inhaler 2 inh inhalation QID PRN (Reason: shortness of breath or wheezing) 90 Days Qty: 8.5 2RF Anoro Ellipta 62.5-25 mcg/actuation blister with device 1 inh inhalation DAILY Qty: 14 0RF clonidine HCl 0.1 mg tablet 0.1 mg PO DAILY PRN (Reason: BLOOD PRESSURE) pyridoxine (vitamin B6) 500 MG tablet 1,000 mg PO DAILY ibuprofen 600 mg tablet 600 mg PO Q6HP PRN (Reason: Moderate Pain) Qty: 20 0RF Referrals Follow up/Referrals: Analilia Mayer PA [Primary Care Provider] - See instructions Activity Restrictions/Add. Instructions Additional Instructions/Restrictions: You were evaluated in the emergency department today. Please pickle processor your antibiotics and steroid and take as prescribed. You are already given a dose of steroid today, she will start this tomorrow. Use your inhalers at home as prescribed. Follow-up with your primary care provider over the next 3 days for reassessment. Return to the emergency department for new or worsening symptoms Clinical Impressions Clinical Impression: Acute exacerbation of chronic obstructive pulmonary disease Instructions Patient Instructions: DI for Chronic Obstructive Pulmonary Disease Discharge ED Provider: Sigrid Ronquillo General Adult HPI General Chief complaint: Shortness of Breath/Dyspnea Stated complaint: chest pain Time Seen by Provider: 12/06/23 07:31 History of Present Illness HPI narrative: This patient is a 68-year-old female presents with smoking history, COPD who was previously on oxygen but is no longer on oxygen, hypertension, TALIB, and hyperlipidemia presenting to the emergency department for evaluation with concern for shortness of breath. Patient states that she has been coughing for approximately 2 weeks now patient states she is coughing up a lot of clear mucus. She also notes sore throat and burning in her lungs. She states that this happened before and it was a bad lung infection. She has been trying to get in with her doctor so that way she can provide a sputum sample for culture. She states that last night, things got acutely worse. She was feeling much worse and stayed up coughing all night. The cough got much worse this morning and she feels like she is hyperventilating. She arrives very anxious appearing. She denies any fevers, chest pain, abdominal pain, vomiting, change in bowel movements, rashes, or swelling. She notes that she has been dealing with chronic leukocytosis of unknown etiology. She denies any steroid use. She also notes recent cardiac catheterization that was reassuring aside from having diastolic dysfunction. On medical review, this was 11/17/23 Related Data Home Medications Medication Instructions Recorded Confirmed clonidine HCl 0.1 mg tablet 0.1 mg PO DAILY PRN BLOOD PRESSURE 02/17/20 11/17/23 pyridoxine (vitamin B6) 500 mg 1,000 mg PO DAILY Supplement 10/02/20 11/17/23 tablet olmesartan 40 mg tablet 40 mg PO DAILY . 02/19/23 11/17/23 pravastatin 40 mg tablet 40 mg PO HS . 02/19/23 11/17/23 Previous Rx's Medication Instructions Recorded bisoprolol fumarate 5 mg tablet 5 mg PO BID BLOOD PRESSURE #180 07/14/23 tabs ibuprofen 600 mg tablet 600 mg PO Q6HP PRN Moderate Pain 08/06/23 #20 tabs albuterol sulfate 90 mcg/actuation 2 inh inhalation QID PRN shortness 10/27/23 aerosol inhaler of breath or wheezing 90 days #8.5 grams umeclidinium 62.5 mcg-vilanterol 1 inh inhalation DAILY . #14 ea 10/27/23 25 mcg/actuation powdr for inhalation (Anoro Ellipta) hydrochlorothiazide 25 mg tablet 25 mg PO DAILY #30 tabs 11/24/23 verapamil 100 mg capsule 24hr 100 mg PO HS #30 caps 11/24/[address],ext.release levofloxacin 750 mg tablet 750 mg PO DAILY 7 days #7 tabs 12/06/23 prednisone 50 mg tablet 50 mg PO DAILY 5 days #5 tabs 12/06/23 Allergies Allergy/AdvReac Type Severity Reaction Status Date / Time acetaminophen [From Tylenol] Allergy Verified 12/06/23 07:49 clarithromycin [From Biaxin] Allergy Verified 12/06/23 07:49 Sulfa (Sulfonamide Allergy Verified 12/06/23 07:49 Antibiotics) tramadol AdvReac Intermediate Vomiting Verified 12/06/23 07:49 [facility] Disclaimer: The information contained in this section may have been updated after the patient was seen, as this information can be updated by other users. Medical History Bilateral leg pain Bilateral otitis externa Chest pain COPD (chronic obstructive pulmonary disease) Daytime somnolence Dyspnea Dyspnea on exertion Eczema of external ear Encounter for cholecystectomy Encounter for pre-operative cardiovascular clearance History of sleep apnea Lung nodule Nocturnal hypoxia TALIB (obstructive sleep apnea) Pulmonary emphysema Restless sleeper Sinus bradycardia Smoking greater than 30 pack years Snoring Tobacco abuse Tobacco abuse counseling Tobacco dependence syndrome Weakness Surgical History History of hysterectomy Family History Sister Lung cancer Brother Lung cancer Other Cancer Social History Smoking Status: Current every day smoker tobacco type: cigarettes packs per day: 1 alcohol intake: never substance use type: denies use current occupational status: retired Travel in the last 8 weeks: None household members: spouse housing: house caffeine: Yes ROS Obtained: Yes All systems reviewed & no additional complaints except as documented Physical Exam General General appearance: alert and anxious Head Head exam: atraumatic and normocephalic Eye Eye exam: Present normal appearance, PERRL and EOMI ENT ENT exam: Present normal exam, normal oropharynx, mucous membranes moist and normal external ear exam Neck Neck exam: Present normal inspection, full ROM and trachea midline; Absent tenderness Chest Chest inspection: Present normal inspection and symmetric chest wall rise; Absent tenderness Respiratory Respiratory exam: Present wheezes, accessory muscle use, prolonged expiratory phase and other (Tachypnea); Absent respiratory distress or stridor Cardiovascular Cardiovascular exam: Present regular rate and normal rhythm Abdominal Exam Abdominal exam: Present soft; Absent distention, tenderness or guarding Extremities Exam Extremities exam: Present normal inspection, full ROM and normal capillary refill; Absent tenderness or edema Back Exam Back exam: Present normal inspection and full ROM; Absent tenderness Neurological Exam Neurological exam: Present alert, oriented X3, CN II-XII intact and normal gait; Absent motor sensory deficit Psychiatric Psychiatric exam: Present anxious Skin Skin exam: Present warm and dry Medical Decision Making Medical Records Medical records reviewed: Yes I reviewed the patient's medical records. Shaheed Inquiry Pt receiving controlled substance: No Vital Signs: 12/06/23 07:35 12/06/23 08:01 12/06/23 08:30 Temperature 98 F Temperature Source Oral Pulse Rate 70 65 Pulse Rate [Right] 87 Respiratory Rate 20 15 18 Blood Pressure 141/86 H 158/88 H Blood Pressure [Right Arm] 168/80 H Blood Pressure Mean [Right Arm] 109 Blood Pressure Source Blood Pressure Source [Right Arm] Manual Cuff/ Auscultation Blood Pressure Position 02 Sat by Pulse Oximetry 88 L 93 L 92 L Oxygen Delivery Method Room Air Room Air Room Air 12/06/23 09:07 Temperature 98.0 F Temperature Source Oral Pulse Rate 65 Pulse Rate [Right] Respiratory Rate 18 Blood Pressure 158/88 H Blood Pressure [Right Arm] Blood Pressure Mean [Right Arm] Blood Pressure Source Automatic Cuff Blood Pressure Source [Right Arm] Blood Pressure Position Sitting 02 Sat by Pulse Oximetry Oxygen Delivery Method Room Air Lab Data Lab results reviewed: Yes I reviewed the patient's lab results. Lab Results 12/06/23 07:30: WBC 15.6 H, RBC 4.10 L, Hgb 14.3, Hct 40.4, MCV 98.7, MCH 35.0 H, MCHC 35.5 H, RDW 13.2, Plt Count 462 H, MPV 7.9, Neut % (Auto) 51.6, Lymph % (Auto) 27.3, Mccreary % (Auto) 6.5, Eos % (Auto) 13.4 H, Baso % (Auto) 1.2, Neut # (Auto) 8.1 H, Lymph # (Auto) 4.3, Mccreary # (Auto) 1.0, Eos # (Auto) 2.1 H, Baso # (Auto) 0.2, Sodium 136, Potassium 4.4, Chloride 106, Carbon Dioxide 26, Anion Gap 8.4, BUN 9, Creatinine 0.50 L, Estimated Creat Clear 64, Estimated GFR 123, Est GFR ( Amer) 148, Glucose 107 H, Calcium 9.4, Total Bilirubin 0.5, AST 38 H, ALT 27, Alkaline Phosphatase 71, Troponin I < 0.01, NT-Pro-B Natriuret Pep 366 H, Total Protein 6.9, Albumin 4.3, Globulin 2.6, Albumin/Globulin Ratio 1.7, TSH 1.63, Thyroxine (T4) 9.4 12/06/23 07:31: VBG pH 7.29 L, VBG pCO2 49.1, VBG pO2 45.2 H, VBG HCO3 23.2, VBG Total CO2 24.7, VBG O2 Saturation 79.5 H, VBG Base Excess -3.3 L 12/06/23 07:30 12/06/23 07:30 Orders (Tests/Meds): ED MEDICATIONS Discontinued Medications Generic Name Dose Route Start Last Admin Trade Name Freq PRN Reason Stop Dose Admin Albuterol/Ipratropium 3 ml 12/06/23 07:45 12/06/23 07:45 Ipratropium/Albuterol 3 Ml [facility] 12/06/23 07:46 3 ml ONCE ONE Administration Doxycycline Hyclate 100 mg 12/06/23 08:36 12/06/23 08:43 Doxycycline Hycl 100 Mg Tablet PO 12/06/23 08:37 Not Given ONCE ONE Levofloxacin 750 mg 12/06/23 08:41 12/06/23 08:43 Levofloxacin 750 Mg Tablet PO 12/06/23 08:42 750 mg ONCE ONE Administration Prednisone 60 mg 12/06/23 08:36 12/06/23 08:40 Prednisone 20mg Tab PO 12/06/23 08:37 60 mg ONCE ONE Administration Sodium Chloride 3 ml 12/06/23 07:41 Sodium Chloride 3% 15ml [facility] 01/05/24 07:40 ONCE PRN INDUCE SPUTUM COLLECTION ORDERS Category Date Time Status XR chest portable Stat Exams 12/06/23 07:31 Completed Brain Natriuretic Peptide Stat Lab 12/06/23 07:30 Completed Complete Blood Count Auto Diff Stat Lab 12/06/23 07:30 Results Comprehensive Metabolic Panel Stat Lab 12/06/23 07:30 Completed Rapid PCR Covid and Flu A/B Stat Lab 12/06/23 07:35 Received T4 (Thyroxine) Stat Lab 12/06/23 07:30 Completed Thyroid Stimulating Hormone Stat Lab 12/06/23 07:30 Completed Troponin I Stat Lab 12/06/23 07:30 Completed Sputum Culture & Gram Stain Stat Micro 12/06/23 07:41 Ordered Venous Blood Gas Stat RT 12/06/23 07:31 Completed ECG initial Besson Routine Y 12/06/23 07:28 Completed ECG Data Tracing #1: I reviewed this ECG and interpreted as documented below: Normal sinus rhythm with a ventricular rate of [address] changes concerning for ischemia. Mild right ventricular conduction delay. No changes from prior EKG. ECG initial impression date: 12/06/23 ECG initial impression time: 07:29 HEART Score History (anamnesis): Slightly suspicious ECG: Normal Age: >65 years Risk factors: 1-2 risk factors Troponin: </= normal limit HEART Score: 3 Medical Decision Narrative: In summary, this patient is a 68-year-old female presenting to the Emergency Department for evaluation of cough and shortness of breath. Differential diagnoses considered include but are not limited to COPD exacerbation, pneumonia, viral syndrome, respiratory failure, PE, ACS. Ruling out the most morbid conditions drove assessment. It should be noted patient's history includes COPD, hypertension, hyperlipidemia, TALIB which are not at goal therapy. This complicates all aspects of care by increasing patient's risk for morbidity. I reviewed patient's past medical records and noted previous cardiac catheterization as per HPI. Reviewed prior pulmonology note from August 2022 and noted the patient has pulmonary hypertension. Patient arrives very anxious appearing with tachypnea and wheezing. She is satting 88% on room air. No significant tachycardia noted. Workup included CBC, CMP, troponin, TSH, T4, BNP, VBG, chest x-ray, viral swab, and EKG. EKG is reassuring. Given wheezing, DuoNeb was administered. I independently interpreted x-ray prior to the radiologist read and noted no obvious acute focal consolidation no pneumothorax. Please see their read for final interpretation. Labs were obtained that demonstrated mild leukocytosis. Troponin negative and other workup is reassuring. Patient had good improvement after administration of DuoNeb and is resting comfortably with normal oxygen saturation on room air. I do not feel that waiting for second troponin is indicated at this time, as she has had the symptoms now for 2 weeks and it is most likely to be a COPD exacerbation. I reviewed prior culture results and noted that the patient had a respiratory culture that was sensitive to Levaquin. Given this, she was given Levaquin and prednisone here. At this time, I do feel that she is appropriate for discharge with instructions for supportive management of COPD exacerbation and prescriptions for prednisone and Levaquin. She was given strict return precautions, and she was discharged in stable condition. She already has follow-up with her primary care provider scheduled for next week. Critical Care Critical Care Time Critical Care Time: No
--- NOTE | 2023-12-06 07:39 | PC.NURSE ---
RAD at BS
[2023-12-06 07:40] LABS: Coronavirus 19, PCR Not Detected (NotDetected); Influenza A, PCR Not Detected (NotDetected); Influenza B, PCR Not Detected (NotDetected)
[2023-12-06 07:40] LABS: Basophils # 0.2 K/mm3 (0-0.2); Basophils % 1.2 % (0.1-2.0); Eosinophils # 2.1 K/mm3 (0.0-0.4); Eosinophils % 13.4 % (0.1-12.0); Hematocrit 40.4 % (37.0-47.0); Hemoglobin 14.3 g/dL (12.2-16.2); Lymphocytes # 4.3 K/mm3 (0.7-4.5); Lymphocytes % 27.3 % (10-50); Mean Corpuscular HGB Conc 35.5 g/dL (31.8-35.4); Mean Corpuscular Volume 98.7 fl (81-99); Mean Platelet Volume 7.9 fl (7.4-10.4); Monocytes % 6.5 % (1.7-9.3); Neutrophils # 8.1 K/mm3 (1.8-7.8); Neutrophils % 51.6 % (37.0-80.0); Platelet Count 462 K/mm3 (142-424); Red Cell Distribution Width 13.2 % (11.5-17.5); White Blood Count 15.6 K/mm3 (4.8-10.8)
[2023-12-06 07:41] LABS: VBG Base Excess -3.3 mmol/L (-2.4-2.3); VBG HCO3 23.2 mmol/L (23-30); VBG Oxygen Saturation 79.5 % (50-70); VBG PCO2 49.1 mmol/L (35-51); VBG PH 7.29 mmol/L (7.31-7.41); VBG PO2 45.2 mmol/L (28-40); VBG Total CO2 24.7 mmol/L (23-27)
[2023-12-06 07:42] LABS: MANUAL DIFFERENTIAL MANUAL DIFFERENTIAL (MANUAL DIFF)
[2023-12-06] MEDS: IPRATROPIUM/ALBUTEROL 3 ML NEB IH (07:45)
[2023-12-06 07:48] LABS: Chloride 106 mmol/L (98-107); Potassium 4.4 mmoL/L (3.5-5.1); Sodium 136 mmol/L (136-145)
[2023-12-06 07:50] LABS: Blood Urea Nitrogen 9 mg/dl (7-17); Creatinine Clearance Estimated 64 mL/min (50-200); Estimated Glomerular Filt Rate 123 ml/min (>60); GFR (African American) 148 ML/MIN (>60)
[2023-12-06 07:51] LABS: Alanine Aminotransferase 27 U/L (12-78); Albumin Level 4.3 g/dl (3.5-5.0); Albumin/Globulin Ratio 1.7 (1.1-1.8); Alkaline Phosphatase 71 U/L (38-126); Anion Gap 8.4 mEq/L (5-15); Aspartate Amino Transferase 38 U/L (14-36); Bilirubin,Total 0.5 mg/dl (0.2-1.3); Calcium 9.4 mg/dl (8.4-10.2); Carbon Dioxide 26 mmol/L (22.0-30.0); Globulin 2.6 g/dL (1.3-3.2); Glucose 107 mg/dl (74-100); Total Protein,Serum 6.9 g/dl (6.3-8.2)
[2023-12-06 08:01] VITALS: BP 141/86; PULSE 70; RESP 15; O2SAT 93
[2023-12-06 08:01] LABS: NT Pro Brain Natriuretic Pep. 366 pg/mL (0-125)
[2023-12-06 08:08] LABS: T4 (Thyroxine) 9.4 ug/dl (5.53-11.0)
[2023-12-06 08:22] LABS: Thyroid Stimulating Hormone 1.63 uIU/mL (0.465-4.68)
[2023-12-06 08:30] VITALS: BP 158/88; PULSE 65; RESP 18; O2SAT 92
[2023-12-06] MEDS: predniSONE 20MG TAB 60 MG PO (08:40)
[2023-12-06] MEDS: levoFLOXacin 750 MG TABLET PO (08:43)
[2023-12-06 08:51] LABS: Troponin I < 0.01 ng/ml (0.00-0.034)
--- NOTE | 2023-12-06 08:59 | PC.NURSE ---
Dr. Ronquillo at to update pt on results
[2023-12-06 09:07] VITALS: BP 158/88; PULSE 65; RESP 18; TEMP 36.7; O2SAT 92
[2023-12-06 09:34] LABS: Eosinophils % 12 % (0-3); Lymphocytes % 23 % (10-50); Monocytes % 9 % (2-9); Neutrophils % 50 % (42-76); Total Cells Counted 100
[2023-12-06 09:37] LABS: Platelet Estimate Slight Increase; RBC Morphology Normal
== END 2023-12-06 09:07 | disposition home or self-care (01) ==
PROVIDERS: Emergency Provider Emergency Medicine; PCP Physician Assistant
DX: J44.1 Chronic obstructive pulmonary disease with (acute) exacerbation (principal); R07.9 Chest pain, unspecified; R06.02 Shortness of breath; F17.210 Nicotine dependence, cigarettes, uncomplicated; I10 Essential (primary) hypertension; E78.5 Hyperlipidemia, unspecified
CPT/HCPCS: 71045; 80053; 82803; 83880; 84436; 84443; 84484; 85007; 85025; 87636; 93005; 99285

== ENCOUNTER 2023-12-29 10:21 | Outpatient (CLI) | payer BC, SELFPAY ==
[2023-12-29 11:06] LABS: Basophils # 0.1 K/mm3 (0-0.2); Basophils % 0.5 % (0.1-2.0); Eosinophils # 1.4 K/mm3 (0.0-0.4); Eosinophils % 11.8 % (0.1-12.0); Hemoglobin 12.7 g/dL (12.2-16.2); Lymphocytes # 2.8 K/mm3 (0.7-4.5); Lymphocytes % 22.7 % (10-50); Mean Corpuscular HGB Conc 32.4 g/dL (31.8-35.4); Mean Corpuscular Hemoglobin 34.4 pg (27.0-31.2); Mean Platelet Volume 8.5 fl (7.4-10.4); Monocytes # 0.7 K/mm3 (0.1-1.0); Neutrophils # 7.1 K/mm3 (1.8-7.8); Platelet Count 493 K/mm3 (142-424); Red Blood Count 3.68 M/mm3 (4.20-5.40); Red Cell Distribution Width 13.2 % (11.5-17.5); White Blood Count 12.1 K/mm3 (4.8-10.8)
[2023-12-29 11:30] LABS: Alanine Aminotransferase 23 U/L (12-78); Albumin/Globulin Ratio 1.9 (1.1-1.8); Alkaline Phosphatase 79 U/L (38-126); Anion Gap 7.4 mEq/L (5-15); Aspartate Amino Transferase 30 U/L (14-36); Bilirubin,Total 0.5 mg/dl (0.2-1.3); Blood Urea Nitrogen 10 mg/dl (7-17); Calcium 9.4 mg/dl (8.4-10.2); Carbon Dioxide 29 mmol/L (22.0-30.0); Chloride 106 mmol/L (98-107); Estimated Glomerular Filt Rate 99 ml/min (>60); GFR (African American) 120 ML/MIN (>60); Globulin 2.1 g/dL (1.3-3.2); Glucose 112 mg/dl (74-100); Potassium 4.4 mmoL/L (3.5-5.1); Sodium 138 mmol/L (136-145); Total Protein,Serum 6.1 g/dl (6.3-8.2)
== END 2023-12-29 23:59 ==
LOC: LAB 10:21
PROVIDERS: PCP Physician Assistant; Visit Provider Surgery
DX: R10.11 Right upper quadrant pain (principal)
CPT/HCPCS: 36415; 80053; 85025

== ENCOUNTER → 2024-01-04 06:02 | Day surgery (SDC) | payer BC, SELFPAY ==
[2024-01-01 14:12] VITALS: BMI 25.7
[2024-01-04 06:27] VITALS: BP 170/86; PULSE 68; RESP 18; TEMP 36.3; O2SAT 96
[2024-01-04] MEDS: LACTATED RINGERS 1000ML 1,000 ML 25 ML IV (06:50)
--- NOTE | 2024-01-04 06:57 | SUR.PREOP ---
Procedure cancelled per MD and J Laura COE r/t unstable bp and short of breath. Pt to follow up with Sawyer Mayer primary care.
== END | disposition home or self-care (01) ==
PROVIDERS: PCP Physician Assistant; Visit Provider Surgery
PROC: 0FT44ZZ Resection of Gallbladder, Percutaneous Endoscopic Approach (ICD-10-PCS; CPT 47562; principal; 2024-01-04 07:30)
DX: Z53.8 Procedure and treatment not carried out for other reasons (principal)
CPT/HCPCS: 47562

== ENCOUNTER 2024-01-08 09:57 | Outpatient (CLI) | payer BC, SELFPAY ==
--- NOTE | 2024-01-08 09:58 | CT_ITS ---
FINAL REPORT CLINICAL HISTORY: lung cancer screening CURRENT SMOKER 1PPD X40 YEARS COMPARISON: 11/06/2022, 11/01/2021 FINDINGS: Axial images were obtained from the lung apex to the mid abdomen by computed tomography. Low-dose protocol was utilized. CTDl vol(mGy): 2.90 DLP (mGy-cm): 101.86 FINDINGS: There is no axillary adenopathy. There is no hilar or mediastinal adenopathy. The heart size is normal. There is no pericardial or pleural effusion. Limited images of the upper abdomen are unremarkable. Lung window images demonstrate a stable, 2 mm nodule in the right lower lobe seen on image 53. There is a stable, 3 mm right midlung nodule seen on image 51. A stable, 4 mm major fissural nodule on image 36 likely represents an intrafissural node. There is a calcified granuloma in the right midlung. Mild emphysema is noted. There is no new mass or nodule. IMPRESSION: Bilateral pulmonary nodules, stable since 2020. Lung RADS category 1. Recommend 12 month follow-up low-dose chest CT. Reviewed, Interpreted and Dictated by Kemal Swartz III, MD Transcribed by Sarina Jain Authenticated and . [facility]
--- NOTE | 2024-01-08 09:58 | MM_ITS ---
PROCEDURE INFORMATION: Exam: MG Bilateral Screening 3D Mammography Exam date and time: 01/08/2024 9:55 AM Age: 68 years old Clinical indication: Screening mammogram TECHNIQUE: Imaging protocol: Bilateral Screening tomosynthesis and 2D mammography including computer-aided detection (CAD) when performed. COMPARISON: 1. MG MM DIG SCREENING MAMM BI W/CAD 10/28/2022 10:30 AM 2. MG MM DIG SCREENING MAMM BI W/CAD 10/14/2021 10:35 AM 3. MG MM DIG SCREENING MAMM BI W/CAD 09/24/2020 8:04 AM 4. MG MM DIG SCREENING MAMM BI W/CAD 09/22/2019 10:43 AM FINDINGS: MAMMOGRAPHY: Breast composition: There are scattered areas of fibroglandular density. Mass: Stable benign-appearing subcentimeter nodules are present in the bilateral breasts. No new or morphologically suspicious nodule has developed to suggest malignancy. Architectural distortion: No new or suspicious architectural distortion. Calcifications: No new or suspicious calcifications are present Asymmetric density: No new or suspicious asymmetric density is present Skin thickening: None. Axillary adenopathy: None. IMPRESSION: No mammographic evidence of malignancy. Recommend annual screening mammography unless otherwise clinically indicated. ASSESSMENT: BI-RADS category 2: Benign.
== END 2024-01-08 23:59 ==
LOC: RAD 09:58
PROVIDERS: PCP Physician Assistant; Visit Provider Physician Assistant
DX: Z87.891 Personal history of nicotine dependence (principal); Z12.31 Encounter for screening mammogram for malignant neoplasm of breast
CPT/HCPCS: 71271; 77063; 77067

== ENCOUNTER 2024-02-12 10:13 | Outpatient (CLI) | payer BC, SELFPAY ==
[2024-02-12 10:51] LABS: Basophils # 0.2 K/mm3 (0-0.2); Basophils % 1.3 % (0.1-2.0); Eosinophils # 0.4 K/mm3 (0.0-0.4); Eosinophils % 3.3 % (0.1-12.0); Hematocrit 43.5 % (37.0-47.0); Hemoglobin 14.1 g/dL (12.2-16.2); Lymphocytes # 2.5 K/mm3 (0.7-4.5); Mean Corpuscular HGB Conc 32.4 g/dL (31.8-35.4); Mean Corpuscular Hemoglobin 33.9 pg (27.0-31.2); Mean Corpuscular Volume 104.4 fl (81-99); Mean Platelet Volume 8.2 fl (7.4-10.4); Monocytes # 0.7 K/mm3 (0.1-1.0); Monocytes % 5.7 % (1.7-9.3); Neutrophils # 8.8 K/mm3 (1.8-7.8); Neutrophils % 69.6 % (37.0-80.0); Platelet Count 405 K/mm3 (142-424); Red Blood Count 4.16 M/mm3 (4.20-5.40); Red Cell Distribution Width 13.3 % (11.5-17.5); White Blood Count 12.6 K/mm3 (4.8-10.8)
[2024-02-12 11:51] LABS: Alanine Aminotransferase 20 U/L (12-78); Albumin Level 4.3 g/dl (3.5-5.0); Alkaline Phosphatase 67 U/L (38-126); Anion Gap 12.4 mEq/L (5-15); Aspartate Amino Transferase 29 U/L (14-36); Bilirubin,Total 0.7 mg/dl (0.2-1.3); Blood Urea Nitrogen 14 mg/dl (7-17); Calcium 9.8 mg/dl (8.4-10.2); Carbon Dioxide 26 mmol/L (22.0-30.0); Chloride 101 mmol/L (98-107); Estimated Glomerular Filt Rate 99 ml/min (>60); GFR (African American) 120 ML/MIN (>60); Globulin 2.2 g/dL (1.3-3.2); Glucose 102 mg/dl (74-100); Potassium 4.4 mmoL/L (3.5-5.1); Sodium 135 mmol/L (136-145); Total Protein,Serum 6.5 g/dl (6.3-8.2)
== END 2024-02-12 23:59 | disposition home or self-care (01) ==
LOC: LAB 10:13
PROVIDERS: PCP Physician Assistant; Visit Provider Surgery
DX: R10.11 Right upper quadrant pain (principal)
CPT/HCPCS: 36415; 80053; 85025

== ENCOUNTER 2024-02-22 08:16 | Day surgery (SDC) | payer BC, SELFPAY ==
[2024-02-22] VITALS (10 sets, daily range): BP systolic 105–159; BP diastolic 53–80; PULSE 20–63; RESP 16–20; TEMP 36.3–37.3; O2SAT 91–97; BMI 27.3
[2024-02-22] MEDS: LACTATED RINGERS 1000ML 1,000 ML 25 ML IV (09:00)
--- NOTE | 2024-02-22 11:18 | P.PNANES_ITS ---
[facility] Disclaimer: The information contained in this section may have been updated after the patient was seen, as this information can be updated by other users. 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 Surgical History History of hysterectomy Family History Sister Lung cancer Brother Lung cancer Other Cancer Family history of DVT Family history of diabetes mellitus type II Family history of stroke Social History Smoking Status: Current every day smoker tobacco type: cigarettes packs per day: 1 alcohol intake: current substance use type: denies use current occupational status: retired Travel in the last 8 weeks: None household members: spouse housing: house caffeine: Yes [facility] Anesthesia Checklist Patient Identification Patient Identification: Arm Band Structural Data Admitted From: Home Planned Operative Procedure/s: Laparoscopic Cholecystectomy Consent for Planned Operative Procedure(s) Verified: Yes Verified Documents: Surgical Consent and History and Physical NPO Status Verified Time NPO: 00:00 Additional verifications Anesthesia Reactions: No Hx Blood Transfusions: Yes Blood Transfusion Reaction: No Airway Assessment Mallampati Score:: Class II C-Spine Mobility Assessed: Yes TMJ Mobility Assessed: Yes Dentition: Dentures-good fit (Pt has upper dentures and lower implant. Pt refuses to remove upper dentures. Risks of denture damage explained to the pt and she verbalized understanding) Neurological Assessment Level of Consciousness: Awake and Alert Anesthesia Plan Anesthesia Risk discussed: Yes Anesthesia Plan: Verified ASA Class: III Anesthesia Type: General Preoperative Comments Pre-Operative Comments: Pt states that her mother had a History of Malignant Hyperthermia. Pt is unable to explain details of this other than she says Anesthesia Killed my Mom. Pt has not had General Anesthesia since 1981 when she had a Hysterectomy. She is unable to remember the name of the hospital where this happened, so records are unable to be obtained. She does state that she has siblings that have safely undergone General Anesthesia at other hospitals with no anesthesia complications. Lengthy discussion had with pt about family hx of MH and risks involved with GA. Plan of care is to proceed with TIVA to avoid any MH triggers. Anesthesia machine in OR room 1 was flushed with 100% O2 for >30 minutes and all anesthesia gas vaporizers were removed from the room. Risks/benefits of TIVA were explained in detail to the pt and she verbalized understanding.
[2024-02-22] MEDS: CEFAZOLIN SODIUM 1 GM in 0.9 % SODIUM CHLORIDE 50 ML IV (12:18)
--- NOTE | 2024-02-22 13:29 | EXP.OP.NOTE ---
Date of procedure: 02/22/24 Pre-op Diagnosis:: Gallbladder disease Post-op Diagnosis:: Same Procedure performed:: Laparoscopic cholecystectomy Surgeon:: Kemal Martinez MD ELECTRICAL CAD TECHNICIAN:: Bob Baird Anesthesia: GETTaylor Estimated blood loss (mL): 15 Operative findings:: She had hepatic adhesions to the peritoneum near the gallbladder and along the right lobe of the liver. Some fatty tissue omentum was adherent to the liver adjacent to the gallbladder. Duodenum was adherent to the gallbladder near the mid body. Operative note:: Consent was obtained patient was taken to the operating room. She was given preoperative intravenous antibiotics. In the operating room she was placed in a supine position. General anesthesia was induced via endotracheal tube. Abdomen was prepped and draped in the standard surgical fashion. Subumbilical skin incision was made and while performing abdominal wall lift Veress needle was inserted. CO2 pneumoperitoneum was achieved to 15 mmHg. 11 mm optical trocar was inserted at the umbilicus. She was positioned in reverse Trendelenburg and left side down. A couple 5 mm trocars were inserted in the right upper abdomen. 11 mm trocar was inserted in the epigastrium. She was noted to have some adhesions of the liver to the anterior peritoneum near the gallbladder consistent with prior perihepatic inflammation. These were carefully taken down using LISY ultrasonic harmonic mya. There were some omental adhesions to the liver adjacent to the gallbladder. These were carefully taken down using LISY ultrasonic robotic mya. Gallbladder was grasped retracted anteriorly and superiorly over the dome of the liver. Gallbladder was somewhat thickened. There was noted to be duodenum adherent to the mid body of the gallbladder. This was carefully taken down using blunt dissection. Ultimately the gallbladder was cleared down to the neck. Infundibulum/Friedman's pouch of the gallbladder was grasped retracted anterior laterally. Blunt dissection was carried out the neck of the gallbladder. Careful prolonged blunt dissection was carried out isolating the cystic duct and cystic artery. Once clearly identified and isolated the cystic duct was multiply clipped and sharply divided. Cystic artery was carefully coagulated with LISY ultrasonic harmonic mya and divided. Gallbladder was dissected free from the liver in a retrograde fashion using LISY ultrasonic harmonic mya. Gallbladder was placed within an Endo Catch retrieval device and removed from the peritoneal cavity via the umbilical trocar site. Gallbladder fossa was inspected for hemostasis which was assured. Limited suctioning was performed to clear any residual fluid. Trocars were then removed as CO2 pneumoperitoneum was evacuated. Fascia at the umbilicus was closed with a couple of 0 Vicryl sutures. Local anesthetic was infiltrated. Skin incisions were closed with 4-0 Monocryl in a subcuticular fashion. Dermabond and dressings were applied Condition: stable Disposition: PACU Complications:: None immediately apparent
--- NOTE | 2024-02-22 13:32 | EXP.ANES.I ---
[facility] [place] Anesthesia Record Part I Anesthesia Record I Intake, IV Amount: 1,100 Hydration: Adequate Estimated blood loss (mL): 10 Urine output (mL): 0 Blood Products used (#): none Blood Pressure: 105/63 SaO2: 91 Pulse Rate: 58 Airway Patency: Patent Respiratory Rate: 16 Temperature: 99.1 F Patient is:: Drowsy and Stable Stable to PACU at:: 13:30
[2024-02-22] MEDS: KETOROLAC 30MG/ML VIAL 30 MG IV (13:57)
[2024-02-22] MEDS: ONDANSETRON 4MG/2ML VIAL 4 MG IV (14:11)
--- NOTE | 2024-02-23 07:23 | P.PNANES_ITS ---
[facility] Anesthesia Record Part II Anesthesia Record Part II Discharge Time: 14:00 Destination: Surgical Day Care (OP Surgery) PACU nurse assessment reviewed?: Yes Patient Condition:: Good Anesthesia Complications:: None Swallowing reflex intact?: Yes Airway Patency: Patent Cyanosis?: No Blood Pressure: 136/80 SaO2: 96 Respiratory Rate: 16 Pulse Rate: 54 Temperature: 99.1 F Mental Status: Alert & Oriented Pain level:: 0 Nausea and/or vomitting:: None Intake, IV Amount: 0 Hydration: Adequate
[2024-02-23 07:25] VITALS: BP 136/80; PULSE 54; RESP 16; TEMP 37.3; O2SAT 96
== END 2024-02-22 14:45 | disposition home or self-care (01) ==
PROVIDERS: PCP Physician Assistant; Visit Provider Surgery
PROC: 0FT44ZZ Resection of Gallbladder, Percutaneous Endoscopic Approach (ICD-10-PCS; CPT 47562; principal; 2024-02-22 10:45)
DX: K81.1 Chronic cholecystitis (principal)
CPT/HCPCS: 47562; 96374; J3490; J2405

== ENCOUNTER 2024-02-22 23:04 | Emergency (ER) | payer BC, SELFPAY ==
[2024-02-22 23:06] VITALS: BP 158/72; PULSE 69; RESP 16; TEMP 36.4; O2SAT 99; BMI 35.2
--- NOTE | 2024-02-22 23:20 | HMH.EDGENADL ---
Discharge Plan Disposition Patient Disposition: Home, Self-Care Prescriptions Prescriptions: No Action cetirizine [Zyrtec] 10 mg tablet 10 mg PO QDAY 90 Days Qty: 90 3RF albuterol sulfate 90 mcg/actuation HFA aerosol inhaler 2 inh inhalation QID PRN (Reason: shortness of breath or wheezing) 90 Days Qty: 8.5 2RF albuterol sulfate 1.25 mg/3 mL solution for nebulization 1.25 mg inhalation QID PRN (Reason: shortness of breath or wheezing) Qty: 90 3RF aspirin 81 mg tablet,delayed release (DR/EC) 81 mg PO DAILY Qty: 90 3RF bisoprolol fumarate 5 mg tablet 5 mg PO BID Qty: 180 3RF Rx Instructions: TAke one tab twice daily Trelegy Ellipta 200-62.5-25 mcg blister with device 1 inh inhalation DAILY Qty: 90 3RF pravastatin 40 mg tablet 40 mg PO HS Qty: 90 3RF olmesartan 40 mg tablet 40 mg PO DAILY Qty: 90 3RF hydrochlorothiazide 25 mg tablet 25 mg PO NEEDED PRN (Reason: Fluid) amlodipine 10 mg tablet 10 mg PO DAILY Qty: 90 3RF oxycodone 5 mg tablet 5 mg PO Q4H PRN (Reason: pain) Qty: 17 0RF ibuprofen 600 mg tablet 600 mg PO Q6HP PRN (Reason: Moderate Pain) Qty: 20 0RF Referrals Follow up/Referrals: Analilia Mayer PA [Primary Care Provider] - See instructions Activity Restrictions/Add. Instructions Additional Instructions/Restrictions: Please follow-up with your primary care provider. Please return to the emergency department if you develop any new or worsening symptoms or become concerned for your health. Clinical Impressions Clinical Impression: Encounter for post surgical wound check Discharge ED Provider: Marcelino Matt General Adult HPI General Chief complaint: Recheck/Abnormal Lab/Rx Stated complaint: gallbladder surgery today, bandage is leaking Time Seen by Provider: 02/22/24 23:05 History of Present Illness HPI narrative: 68-year-old female who had an elective cholecystectomy today presents with concern for bleeding. She is not having any significant pain. She noticed some blood on the periumbilical bandage. She denies any fever or other symptoms. The other wound sites she reports are normal. Related Data Home Medications Medication Instructions Recorded Confirmed hydrochlorothiazide 25 mg tablet 25 mg PO NEEDED PRN Fluid 01/26/24 02/22/24 Previous Rx's Medication Instructions Recorded ibuprofen 600 mg tablet 600 mg PO Q6HP PRN Moderate Pain 08/06/23 #20 tabs cetirizine 10 mg tablet (Zyrtec) 10 mg PO QDAY 90 days #90 tabs 01/07/24 albuterol sulfate 1.25 mg/3 mL 1.25 mg (3 mL) inhalation QID PRN 01/11/24 solution for nebulization shortness of breath or wheezing #90 mL albuterol sulfate 90 mcg/actuation 2 inh inhalation QID PRN shortness 01/11/24 aerosol inhaler of breath or wheezing 90 days #8.5 grams aspirin 81 mg tablet,delayed 81 mg PO DAILY #90 tabs 01/11/24 release bisoprolol fumarate 5 mg tablet 5 mg PO BID BLOOD PRESSURE #180 01/11/24 tabs fluticasone fur. 200 mcg-umeclid 1 inh inhalation DAILY COPD #90 ea 01/11/24 62.5 mcg-vilant 25 mcg inhalat.powder (Trelegy Ellipta) olmesartan 40 mg tablet 40 mg PO DAILY BP #90 tabs 01/11/24 pravastatin 40 mg tablet 40 mg PO HS . #90 tabs 01/11/24 amlodipine 10 mg tablet 10 mg PO DAILY #90 tabs 01/12/24 oxycodone 5 mg tablet 5 mg PO Q4H PRN pain #17 tabs 02/22/24 Allergies Allergy/AdvReac Type Severity Reaction Status Date / Time acetaminophen [From Tylenol] Allergy Verified 02/22/24 08:53 clarithromycin [From Biaxin] Allergy Verified 02/22/24 08:53 Sulfa (Sulfonamide Allergy Verified 02/22/24 08:53 Antibiotics) levofloxacin AdvReac Intermediate difficulty Verified 02/22/24 08:53 urinating tramadol AdvReac Intermediate Vomiting Verified 02/22/24 08:53 PFSH PFS Disclaimer: The information contained in this section may have been updated after the patient was seen, as this information can be updated by other users. 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 Surgical History History of hysterectomy Family History Sister Lung cancer Brother Lung cancer Other Cancer Family history of DVT Family history of diabetes mellitus type II Family history of stroke Social History Smoking Status: Current every day smoker tobacco type: cigarettes packs per day: 1 alcohol intake: current substance use type: denies use current occupational status: retired Travel in the last 8 weeks: None household members: spouse housing: house caffeine: Yes ROS Obtained: Yes All systems reviewed & no additional complaints except as documented Physical Exam General General appearance: alert, in no apparent distress and obese Head Head exam: atraumatic and normocephalic Eye Eye exam: Present normal appearance, PERRL and EOMI ENT ENT exam: Present normal oropharynx and normal external ear exam Neck Neck exam: Present normal inspection and full ROM Chest Chest inspection: Present normal inspection and symmetric chest wall rise; Absent tenderness Respiratory Respiratory exam: Present normal lung sounds bilaterally; Absent respiratory distress Cardiovascular Cardiovascular exam: Present regular rate and normal rhythm Abdominal Exam Abdominal exam: Present soft; Absent distention, tenderness or guarding Comment: Laparoscopy abdominal bandages in place. There is scant blood over the periumbilical bandage. It was removed, no active bleeding underlying. New sterile bandage was immediately placed Extremities Exam Extremities exam: Present normal inspection; Absent edema or joint swelling Back Exam Back exam: Present normal inspection; Absent tenderness Neurological Exam Neurological exam: Present alert and oriented X3; Absent motor sensory deficit Psychiatric Psychiatric exam: Present normal affect and normal mood Skin Skin exam: Present warm, dry and normal color Lymphatic Lymphatic Findings: no adenopathy Medical Decision Making Medical Records Medical records reviewed: Yes I reviewed the patient's medical records. Shaheed Inquiry Pt receiving controlled substance: No Shaheed was queried for this patient: No Vital Signs: 02/22/24 23:06 Temperature 97.5 F L Temperature Source Oral Pulse Rate [Left] 69 Respiratory Rate 16 Blood Pressure [Right Arm] 158/72 H Blood Pressure Mean [Right Arm] 100 Blood Pressure Source [Right Arm] Automatic Cuff Blood Pressure Position [Right Arm] Sitting 02 Sat by Pulse Oximetry 99 Oxygen Delivery Method Room Air Lab Data Lab results reviewed: Yes I reviewed the patient's lab results. Medical Decision Narrative: 68-year-old female presents with concern for blood on her laparoscopy bandage in the periumbilical region after outpatient cholecystectomy today.. History was obtained interactive discussion with patient, family, chart review. On arrival, patient is [afebrile, hemodynamically stable, satting appropriately, alert, oriented x4, GCS 15], moving all extremities spontaneously. Full physical exam performed and significant for scant blood on the periumbilical laparoscopy site. Bandage was removed, wound is well-appearing, no bleeding or signs of infection. Not dehisced. New sterile bandage was placed. Differential includes but is not limited to wound dehiscence, hemorrhage, infection. No concern for emergent pathology at this time. The scant blood was normal in appearance. Patient discharged in stable condition. Return precautions given. Procedures Risk/Benefits of Procedure(s) Were Explained: Yes Critical Care Critical Care Time Critical Care Time: No
[2024-02-22 23:25] VITALS: BP 152/72; PULSE 69; RESP 16; TEMP 36.4; O2SAT 97
== END 2024-02-22 23:31 | disposition home or self-care (01) ==
PROVIDERS: Emergency Provider Emergency Medicine; PCP Physician Assistant
DX: Z48.89 Encounter for other specified surgical aftercare (principal)
CPT/HCPCS: 99281

== ENCOUNTER 2024-03-30 07:48 | Outpatient (CLI) | payer BC, SELFPAY ==
[2024-03-30 07:51] LABS: Microscopic, Urine URINE MICROSCOPIC (MICROSCOPIC)
[2024-03-30 08:27] LABS: Appearance,Urine CLEAR (Clear); Basophils # 0.1 K/mm3 (0-0.2); Basophils % 0.8 % (0.1-2.0); Bilirubin,Urine Negative (Negative); Blood, Urine TRACE-I (Negative); Color,Urine YELLOW (Yellow); Eosinophils # 0.8 K/mm3 (0.0-0.4); Eosinophils % 5.9 % (0.1-12.0); Glucose,Urine (UA) Negative (Negative); Hematocrit 41.4 % (37.0-47.0); Hemoglobin 13.7 g/dL (12.2-16.2); Ketones,Urine Negative (Negative); Leukocyte Esterase,Urine Negative (Negative); Lymphocytes # 2.7 K/mm3 (0.7-4.5); Mean Corpuscular HGB Conc 33.2 g/dL (31.8-35.4); Mean Corpuscular Hemoglobin 33.9 pg (27.0-31.2); Mean Corpuscular Volume 102.2 fl (81-99); Mean Platelet Volume 8.4 fl (7.4-10.4); Monocytes # 0.8 K/mm3 (0.1-1.0); Monocytes % 6.3 % (1.7-9.3); Neutrophils % 67.1 % (37.0-80.0); Nitrate,Urine Negative (Negative); Platelet Count 442 K/mm3 (142-424); Protein,Urine 1+ (Negative); Red Blood Count 4.05 M/mm3 (4.20-5.40); Red Cell Distribution Width 13.6 % (11.5-17.5); Urobilinogen,Urine 0.2 EU/dl (0.2); White Blood Count 13.5 K/mm3 (4.8-10.8)
[2024-03-30 08:31] LABS: Alanine Aminotransferase 34 U/L (12-78); Albumin Level 4.2 g/dl (3.5-5.0); Albumin/Globulin Ratio 1.8 (1.1-1.8); Alkaline Phosphatase 74 U/L (38-126); Amylase 47 U/L (30-110); Anion Gap 12.3 mEq/L (5-15); Aspartate Amino Transferase 43 U/L (14-36); Bilirubin,Total 0.7 mg/dl (0.2-1.3); Blood Urea Nitrogen 10 mg/dl (7-17); Calcium 9.7 mg/dl (8.4-10.2); Carbon Dioxide 28 mmol/L (22.0-30.0); Chloride 101 mmol/L (98-107); Chol/HDL Ratio 2.5 (1-3.5); Cholesterol 146 mg/dl (140-200); Estimated Glomerular Filt Rate 83 ml/min (>60); GFR (African American) 101 ML/MIN (>60); Globulin 2.3 g/dL (1.3-3.2); Glucose 106 mg/dl (74-100); HDL Cholesterol 59 mg/dl (40-60); Lipase 81 U/L (23-300); Potassium 4.3 mmoL/L (3.5-5.1); Sodium 137 mmol/L (136-145); Total Protein,Serum 6.5 g/dl (6.3-8.2); Triglycerides 109 mg/dl (30-150); VLDL Cholesterol 22 mg/dL (0-40)
[2024-03-30 08:42] LABS: Direct LDL Cholesterol 76.36 mg/dL (100-129)
[2024-03-30 08:49] LABS: 25-OH Vitamin D, Total 25.7 ng/mL (30-100)
[2024-03-30 09:02] LABS: Thyroid Stimulating Hormone 1.25 uIU/mL (0.465-4.68)
[2024-03-30 09:34] LABS: Vitamin B12 > 1000 pg/mL (239-931)
[2024-03-30 11:12] LABS: Bacteria,Urine Trace /lpf; Mucus,Urine Trace /lpf; RBC,Urine Occasional #/hpf (0-3)
[2024-03-30 11:13] LABS: Hyaline Casts,Urine Occasional #/lpf (0)
== END 2024-03-30 23:59 | disposition home or self-care (01) ==
LOC: LAB 07:48
PROVIDERS: PCP Physician Assistant; Visit Provider Physician Assistant
DX: R10.9 Unspecified abdominal pain (principal); E55.9 Vitamin D deficiency, unspecified; R82.998 Other abnormal findings in urine; Z68.27 Body mass index [BMI] 27.0-27.9, adult
CPT/HCPCS: 36415; 80053; 80061; 81001; 82150; 82306; 82607; 83690; 84443; 85025

== ENCOUNTER 2024-04-04 09:38 | Outpatient (CLI) | payer BC, SELFPAY ==
--- NOTE | 2024-04-04 09:43 | XR_ITS ---
FINAL REPORT CLINICAL HISTORY: abdominal pain s/p cholecystectomy FINDINGS: THREE-VIEW ABDOMEN An AP view of the the chest was obtained. There is mild atelectasis or scarring. The lungs are otherwise clear. Heart mediastinum are within normal limits. There is no pneumothorax. Flat and upright views of the abdomen were obtained. There is a nonspecific bowel gas pattern. No abnormally dilated loops of bowel are seen. There is no free air present. No abnormal calcifications are identified. Postoperative changes are noted in the right upper quadrant. IMPRESSION: No acute cardiopulmonary process. Nonspecific bowel gas pattern. Reviewed, Interpreted and Dictated by Kemal Swartz III, MD Transcribed by Emily Chaudhry Authenticated and [facility]
== END 2024-04-04 23:59 | disposition home or self-care (01) ==
LOC: RAD 09:39
PROVIDERS: PCP Physician Assistant; Visit Provider Physician Assistant
DX: R10.9 Unspecified abdominal pain (principal); Z98.890 Other specified postprocedural states
CPT/HCPCS: 74021

== ENCOUNTER 2024-04-08 19:23 | Observation (INO) | payer BC, SELFPAY ==
[2024-04-08] VITALS (12 sets, daily range): BP systolic 115–171; BP diastolic 67–136; PULSE 62–84; RESP 14–24; TEMP 36.8–37.2; O2SAT 83–98; BMI 26.6; BMI 27.1
--- NOTE | 2024-04-08 20:01 | XR_ITS ---
PROCEDURE INFORMATION: Exam: XR Chest Exam date and time: 04/08/2024 8:29 PM Age: 68 years old Clinical indication: Shortness of breath; Additional info: SOA TECHNIQUE: Imaging protocol: Radiologic exam of the chest. Views: 1 view. COMPARISON: CT LUNG SCREENING 01/08/2024 10:52 AM FINDINGS: Lungs: No consolidation. Pleural spaces: No pleural effusion. No pneumothorax. Heart/Mediastinum: Mild cardiomegaly. Bones/joints: Unremarkable. IMPRESSION: No acute pulmonary findings.
--- NOTE | 2024-04-08 20:05 | ECG_ITS ---
APPROVED REPORT Exam: Resting ECG HR:68 bpm ECG Measurements Heart Rate 68 AXES CA 139 P 71 QRSd 84 QRS 83 QT 383 T 72 QTc 401 Conclusion SINUS RHYTHM POSSIBLE RIGHT VENTRICULAR CONDUCTION DELAY [RSR (QR) IN V1/V2] BORDERLINE ECG Electronically signed by : DARRIUS HARTMANN, 04/08/2024 22:52:57
[2024-04-08] MEDS: IPRATROPIUM/ALBUTEROL 3 ML NEB 9 ML IH (20:13)
[2024-04-08 20:17] LABS: Basophils # 0.3 K/mm3 (0-0.2); Basophils % 1.8 % (0.1-2.0); Eosinophils # 1.5 K/mm3 (0.0-0.4); Eosinophils % 10.8 % (0.1-12.0); Hematocrit 41.3 % (37.0-47.0); Lymphocytes # 3.9 K/mm3 (0.7-4.5); Mean Corpuscular Hemoglobin 34.2 pg (27.0-31.2); Mean Corpuscular Volume 100.8 fl (81-99); Mean Platelet Volume 8.5 fl (7.4-10.4); Monocytes # 0.9 K/mm3 (0.1-1.0); Monocytes % 6.5 % (1.7-9.3); Neutrophils # 7.3 K/mm3 (1.8-7.8); Neutrophils % 52.9 % (37.0-80.0); Platelet Count 409 K/mm3 (142-424); Red Blood Count 4.09 M/mm3 (4.20-5.40); Red Cell Distribution Width 13.5 % (11.5-17.5); White Blood Count 13.9 K/mm3 (4.8-10.8)
--- NOTE | 2024-04-08 20:17 | ED_ITS ---
Discharge Plan Disposition Patient Disposition: Admitted Condition: Good Clinical Impressions Clinical Impression: Pneumonia, Acute exacerbation of chronic obstructive pulmonary disease, Acute hypoxic respiratory failure Discharge ED Provider: Sigrid Ronquillo HPI General Chief Complaint: Shortness of Breath/Dyspnea Stated Complaint: low O2, SOA, cough Time Seen by Provider: 04/08/24 19:29 Mode of Arrival: Wheelchair Source of Information: Patient Limitations: Physical Limitations Description of Symptoms (Recalled from ER Triage Doc. by RN): Pt presents to ED for SOB X 2-3 hours. Pt states her O2 dropped to 82. This RN placed pt on 2L of O2 and she's at 92%. Pt states she has a dx of COPD. Pt states she has a cough and has been using OTC cough medicine for 2 days. Pt is A&O*4 at this time. History of Present Illness HPI narrative: This patient is a 68-year-old female with a history of COPD not on home oxygen, TALIB, tobacco use, hypertension, and hyperlipidemia presenting to the emergency department for evaluation with concern for shortness of breath. Patient reports that she has intermittently been having issues with shortness of breath since she had her gallbladder out back in January. This flareup started a few hours ago. She states she is been doing her breathing treatments and inhalers at home, but she feels like she cannot get air at all. She has had a cough and has been using [id number] cough medication for 2 days. She notes increased sputum production. No fevers, chest pain, vomiting, or other concerns. She does note that she has had some mild leg swelling. No history of blood clots or clotting disorders. She was seen by her primary care provider 04/04 and had an x- ray done as well as labs, which demonstrated persistent chronic leukocytosis but no acute cardiopulmonary issues, medical record review. Related Data Previous Rx's Medication Instructions Recorded ibuprofen 600 mg tablet 600 mg PO Q6HP PRN Moderate Pain 08/06/23 #20 tabs cetirizine 10 mg tablet (Zyrtec) 10 mg PO QDAY 90 days #90 tabs 01/07/24 albuterol sulfate 1.25 mg/3 mL 1.25 mg (3 mL) inhalation QID PRN 01/11/24 solution for nebulization shortness of breath or wheezing #90 mL albuterol sulfate 90 mcg/actuation 2 inh inhalation QID PRN shortness 01/11/24 aerosol inhaler of breath or wheezing 90 days #8.5 grams aspirin 81 mg tablet,delayed 81 mg PO DAILY #90 tabs 01/11/24 release bisoprolol fumarate 5 mg tablet 5 mg PO BID BLOOD PRESSURE #180 01/11/24 tabs fluticasone fur. 200 mcg-umeclid 1 inh inhalation DAILY COPD #90 ea 01/11/24 62.5 mcg-vilant 25 mcg inhalat.powder (Trelegy Ellipta) olmesartan 40 mg tablet 40 mg PO DAILY BP #90 tabs 01/11/24 pravastatin 40 mg tablet 40 mg PO HS . #90 tabs 01/11/24 amlodipine 10 mg tablet 10 mg PO DAILY #90 tabs 01/12/24 oxycodone 5 mg tablet 5 mg PO Q4H PRN pain #17 tabs 02/22/24 hydrochlorothiazide 25 mg tablet 25 mg PO NEEDED PRN Fluid #90 03/29/24 tabs mirtazapine 15 mg tablet (Remeron) 15 mg PO HS #90 tabs 03/29/24 cholecalciferol (vitamin D3) 1,250 1,250 mcg PO WEEKLY #5 tabs 04/04/24 mcg (50,000 unit) tablet Allergies Allergy/AdvReac Type Severity Reaction Status Date / Time acetaminophen [From Tylenol] Allergy Verified 03/29/24 10:10 clarithromycin [From Biaxin] Allergy Verified 03/29/24 10:10 Sulfa (Sulfonamide Allergy Verified 03/29/24 10:10 Antibiotics) levofloxacin AdvReac Intermediate difficulty Verified 03/29/24 10:10 urinating tramadol AdvReac Intermediate Vomiting Verified 03/29/24 10:10 PFSH PFSH Disclaimer: The information contained in this section may have been updated after the patient was seen, as this information can be updated by other users. 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 Surgical History History of laparoscopic cholecystectomy History of hysterectomy Family History Sister Lung cancer Brother Lung cancer Other Cancer Family history of DVT Family history of diabetes mellitus type II Family history of stroke Social History Smoking Status: Current every day smoker tobacco type: cigarettes packs per day: 1 alcohol intake: current alcohol intake frequency: 3 or more drinks per day substance use type: denies use current occupational status: retired Travel in the last 8 weeks: None household members: spouse housing: house caffeine: Yes ROS Obtained: Yes All systems reviewed & no additional complaints except as documented Physical Exam General General appearance: alert Comment: Increased work of breathing Head Head exam: atraumatic and normocephalic Eye Eye exam: Present normal appearance, PERRL and EOMI ENT ENT exam: Present normal exam, normal oropharynx, mucous membranes moist and normal external ear exam Neck Neck exam: Present normal inspection, full ROM and trachea midline; Absent tenderness Chest Chest inspection: Present normal inspection and symmetric chest wall rise; Absent tenderness Respiratory Respiratory exam: Present respiratory distress, wheezes, accessory muscle use, prolonged expiratory phase and other (Mild respiratory distress with tachypnea, accessory muscle use, and inspiratory and expiratory wheezing. Patient was hypoxic on room air with oxygen saturation of 82%.); Absent stridor Cardiovascular Cardiovascular exam: Present regular rate and normal rhythm Abdominal Exam Abdominal exam: Present soft; Absent distention, tenderness or guarding Extremities Exam Extremities exam: Present normal inspection, full ROM and normal capillary refill; Absent tenderness or edema Back Exam Back exam: Present normal inspection and full ROM; Absent tenderness Neurological Exam Neurological exam: Present alert, oriented X3, CN II-XII intact and normal gait; Absent motor sensory deficit Psychiatric Psychiatric exam: Present normal affect and normal mood Skin Skin exam: Present warm and dry HEART Score HEART Score HEART Score assessment performed?: Yes History (anamnesis): Slightly suspicious ECG: Normal Age: >65 years Risk factors: 1-2 risk factors Troponin: </= normal limit HEART Score: 3 Critical Care Critical Care Time Critical Care Time: No Medical Decision Making Medical Records Medical records reviewed: Yes I reviewed the patient's medical records. Shaheed Inquiry Pt receiving controlled substance: No Vital Signs Vital Signs: 04/08/24 19:23 04/08/24 19:39 04/08/24 20:00 Temperature 98.9 F 98.2 F Temperature Source Oral Oral Pulse Rate 77 62 Pulse Rate [Left] 80 Respiratory Rate 22 14 19 Blood Pressure 171/90 H 136/75 Blood Pressure [Right Radial Artery] 169/75 H Blood Pressure Mean Blood Pressure Mean [Right Radial Artery] 106 02 Sat by Pulse Oximetry 92 L 94 L 87 L Oxygen Delivery Method Room Air Nasal Cannula Nasal Cannula Room Air Oxygen Flow Rate (LPM) 2 2 04/08/24 20:13 04/08/24 20:31 04/08/24 20:36 Temperature Temperature Source Pulse Rate 75 78 84 Pulse Rate [Left] Respiratory Rate 20 Blood Pressure 171/90 H Blood Pressure [Right Radial Artery] Blood Pressure Mean Blood Pressure Mean [Right Radial Artery] 02 Sat by Pulse Oximetry 98 Oxygen Delivery Method Nasal Cannula Oxygen Flow Rate (LPM) 04/08/24 21:04 04/08/24 21:31 04/08/24 22:40 Temperature 98.6 F Temperature Source Oral Pulse Rate 80 68 72 Pulse Rate [Left] Respiratory Rate 22 18 Blood Pressure 153/136 H 115/67 151/130 H Blood Pressure [Right Radial Artery] Blood Pressure Mean 97 Blood Pressure Mean [Right Radial Artery] 02 Sat by Pulse Oximetry 92 L 83 L Oxygen Delivery Method Room Air Nasal Cannula Oxygen Flow Rate (LPM) 2 Lab Data Labs: Lab Results 04/08/24 19:32: WBC 13.9 H, RBC 4.09 L, Hgb 14.0, Hct 41.3, MCV 100.8 H, MCH 34.2 H, MCHC 34.0, RDW 13.5, Plt Count 409, MPV 8.5, Neut % (Auto) 52.9, Lymph % (Auto) 28.0, Traill % (Auto) 6.5, Eos % (Auto) 10.8, Baso % (Auto) 1.8, Neut # (Auto) 7.3, Lymph # (Auto) 3.9, Traill # (Auto) 0.9, Eos # (Auto) 1.5 H, Baso # (Auto) 0.3 H, D-Dimer 0.61 H 04/08/24 20:01: VBG pH 7.38, VBG pCO2 43.6, VBG pO2 33.2, VBG HCO3 25.0, VBG Total CO2 26.3, VBG O2 Saturation 68.8, VBG Base Excess -0.2, VBG Lactic Acid 2.0 04/08/24 20:24: SARS-CoV-2 (PCR) Not detected, Influenza A Untype (PCR) Not detected, Influenza Type B (PCR) Not detected 04/08/24 19:32 04/08/24 Unknown Response Orders (Tests/Meds): ED MEDICATIONS Generic Name Dose Route Start Last Admin Trade Name Freq PRN Reason Stop Dose Admin Al Hydrox/Mg Hydrox/Simethicone 30 ml 04/08/24 22:28 Aluminum/Magnesium/Simethicone 30ml Udc PO 05/08/24 22:27 QIDP PRN Dyspepsia Albuterol/Ipratropium 3 ml 04/09/24 00:00 Ipratropium/Albuterol 3 Ml Neb IH 05/09/24 00:00 Q6RT [facility] Dexamethasone Sodium Phosphate 6 mg 04/09/24 09:00 Dexamethasone 4mg/Ml 1ml Vial IV 05/09/24 08:59 DAILY YING Docusate Sodium 100 mg 04/09/24 09:00 Docusate Sodium 100 Mg Capsule PO 05/09/24 08:59 DAILY YING Enoxaparin Sodium 40 mg 04/09/24 09:00 Enoxaparin 40mg/0.4ml Syringe SQ 05/09/24 08:59 DAILY [facility] Ceftriaxone Sodium 1 gm/ 50 mls @ 100 mls/hr 04/09/24 22:30 Sodium Chloride IV 04/19/24 22:29 Q24H YING Morphine Sulfate 2 mg 04/08/24 22:28 Morphine 2mg/Ml Syringe IV 05/08/24 22:27 Q2HP PRN Severe Pain (7-10) Nicotine 21 mg 04/08/24 22:28 Nicotine 21mg/24hr Patch TD 05/08/24 22:27 DAILYP PRN Nicotine Cravings Ondansetron HCl 4 mg 04/08/24 22:28 Ondansetron 4mg/2ml Vial IV 05/08/24 22:27 Q8HP PRN Nausea Pantoprazole Sodium 40 mg 04/09/24 09:00 Pantoprazole 40mg Tablet PO 05/09/24 08:59 DAILY YING Sodium Chloride 10 ml 04/08/24 21:06 04/08/24 21:07 Sodium Chloride 0.9% 10ml Syr (Rad Only) IV 05/08/24 21:05 10 ml NEEDED PRN Administration Maintain IV Site Sodium Chloride 3 ml 04/08/24 22:32 Sodium Chloride 3% 15ml [facility] 05/08/24 22:31 ONCE PRN INDUCE SPUTUM COLLECTION Discontinued Medications Generic Name Dose Route Start Last Admin Trade Name Juvenalq PRN Reason Stop Dose Admin Albuterol/Ipratropium 9 ml 04/08/24 20:02 04/08/24 20:13 Ipratropium/Albuterol 3 Ml [facility] 04/08/24 20:03 9 ml ONCE ONE Administration Diphenhydramine HCl 50 mg 04/08/24 21:08 04/08/24 21:09 Diphenhydramine 50mg/Ml Vial IV 04/08/24 21:09 50 mg ONCE ONE Administration Ceftriaxone Sodium 2 gm/ 100 mls @ 200 mls/hr 04/08/24 21:32 04/08/24 21:48 Sodium Chloride IV 04/08/24 22:01 200 mls/hr ONCE ONE Administration Azithromycin 500 mg/ Sodium 250 mls @ 250 mls/hr 04/08/24 21:32 04/08/24 22:30 Chloride IV 04/08/24 21:33 250 mls/hr ONCE ONE Administration Iopamidol 70 ml 04/08/24 21:06 04/08/24 21:07 Iopamidol-370 (76%);100ml Bottle IV 04/08/24 21:07 70 ml ONCE ONE Administration Methylprednisolone Sodium Succinate 125 mg 04/08/24 21:31 04/08/24 21:48 Methylprednisolone Sod Succ 125mg Vial IV 04/08/24 21:32 125 mg ONCE ONE Administration Sodium Chloride 50 ml 04/08/24 21:06 04/08/24 21:07 0.9 % Sodium Chloride 50 Ml Vial IV 04/08/24 21:07 50 ml ONCE ONE Administration ORDERS Category Date Time Status CT angio chest PE protocol Stat Cat Scan 04/08/24 20:31 Completed CXR --portable [XR chest portable] Stat Exams 04/08/24 20:01 Completed BNP [NT Pro Brain Natriuretic Pep.] Stat Lab 04/08/24 Completed CMP [Comprehensive Metabolic Panel] Stat Lab 04/08/24 Completed Complete Blood Count Auto Diff AMLAB Lab 04/09/24 06:00 Ordered Complete Blood Count Auto Diff Stat Lab 04/08/24 19:32 Completed Comprehensive Metabolic Panel AMLAB Lab 04/09/24 06:00 Ordered D-Dimer Stat Lab 04/08/24 19:32 Completed Magnesium AMLAB Lab 04/09/24 06:00 Ordered Rapid PCR Covid and Flu A/B Stat Lab 04/08/24 20:24 Completed Trop I [Troponin I] Stat Lab 04/08/24 Completed Troponin I Q3H Lab 04/08/24 23:15 Ordered Troponin I Q3H Lab 04/09/24 02:15 Ordered VBG [Venous Blood Gas] Stat RT 04/08/24 20:01 Completed ECG Data Tracing #1: Attestation: I reviewed this ECG and interpreted as documented below: ECG Narrative: Normal sinus rhythm with a ventricular rate of [address] changes concerning for ischemia. Normal axis and intervals ECG initial impression date: 04/08/24 ECG initial impression time: 20:06 [facility] Narrative Medical Decision Narrative: In summary, this patient is a 68-year-old female presenting to the Emergency Department for evaluation of increasing cough and shortness of breath. Differential diagnoses considered include but are not limited to COPD exacerbation, acute respiratory failure, CHF, pneumonia, viral syndrome, PE. Ruling out the most morbid conditions drove assessment. It should be noted patient's history includes COPD which not at goal therapy. This complicates all aspects of care by increasing patient's risk for morbidity. I reviewed patient's past medical records and noted evaluation here in December for similar issue. Patient arrives hypoxic on room air with increased work of breathing and wheezing noted on exam. She improved on 2 L nasal cannula with an O2 saturation 90%, the work of breathing continued. Workup included CBC, CMP, troponin, BNP, VBG, viral swab, chest x-ray, and EKG. EKG obtained is reassuring. Cannot use PERC to exclude PE based on the patient's age, so D-dimer was sent. She was given DuoNebs x 3 to assess for symptomatic improvement. I independently interpreted x-ray prior to the radiologist read and noted no acute focal consolidation or pneumothorax. Please see their read for final interpretation. Labs were obtained that demonstrated leukocytosis and mildly elevated D-dimer, but no other acutely concerning abnormalities. Given elevated D-dimer, CT PE protocol was ordered which did not show any PE, but patient does have findings concerning for pneumonia, which does fit her clinical picture. Troponins negative and no other acute concerning abnormalities noted. VBG is reassuring On reassessment, patient had some improvement after administration of nebs. Given this, she was given IV methylprednisolone. I tried to wean her off of supplemental oxygen, and the patient desaturated consistently to 83 to 84% on room air, though she does not typically wear oxygen at home. Given this, I do not feel that discharge is safe and I feel she would benefit from admission for continued management of pneumonia plus COPD exacerbation and acute respiratory failure with hypoxia. I had an interactive discussion with the hospitalist who admitted the patient for further evaluation and management..
[2024-04-08 20:19] LABS: Alanine Aminotransferase 40 U/L (12-78); Albumin Level 4.6 g/dl (3.5-5.0); Albumin/Globulin Ratio 1.5 (1.1-1.8); Alkaline Phosphatase 96 U/L (38-126); Anion Gap 15.6 mEq/L (5-15); Aspartate Amino Transferase 48 U/L (14-36); Bilirubin,Total 0.4 mg/dl (0.2-1.3); Blood Urea Nitrogen 13 mg/dl (7-17); Calcium 10.1 mg/dl (8.4-10.2); Carbon Dioxide 29 mmol/L (22.0-30.0); Chloride 100 mmol/L (98-107); Creatinine Clearance Estimated 62 mL/min (50-200); Estimated Glomerular Filt Rate 71 ml/min (>60); GFR (African American) 86 ML/MIN (>60); Glucose 99 mg/dl (74-100); Potassium 3.6 mmoL/L (3.5-5.1); Sodium 141 mmol/L (136-145); Total Protein,Serum 7.6 g/dl (6.3-8.2)
[2024-04-08 20:19] LABS: VBG Base Excess -0.2 mmol/L (-2.4-2.3); VBG Oxygen Saturation 68.8 % (50-70); VBG PCO2 43.6 mmol/L (35-51); VBG PH 7.38 mmol/L (7.31-7.41); VBG PO2 33.2 mmol/L (28-40); VBG Total CO2 26.3 mmol/L (23-27)
[2024-04-08 20:24] LABS: D-Dimer 0.61 ug/mL (0.0-0.5)
[2024-04-08 20:29] LABS: Coronavirus 19, PCR Not Detected (NotDetected); Influenza A, PCR Not Detected (NotDetected); Influenza B, PCR Not Detected (NotDetected)
--- NOTE | 2024-04-08 20:31 | CT_ITS ---
PROCEDURE INFORMATION: Exam: CTA Chest With Contrast Exam date and time: 04/08/2024 8:56 PM Age: 68 years old Clinical indication: Shortness of breath; Additional info: SOA, elevated d-dimer TECHNIQUE: Imaging protocol: Computed tomographic angiography of the chest with contrast. Exam focused on the arteries. 3D rendering (Not supervised by radiologist): MIP and/or 3D reconstructed images were created by the technologist. Radiation optimization: All CT scans at this facility use at least one of these dose optimization techniques: automated exposure control; mA and/or kV adjustment per patient size (includes targeted exams where dose is matched to clinical indication); or iterative reconstruction. Contrast material: ISOVUE; Contrast volume: 70 ml; Contrast route: INTRAVENOUS (IV); COMPARISON: CT LUNG SCREENING 01/08/2024 10:52 AM FINDINGS: Pulmonary arteries: Chronic dilated pulmonary trunk measuring 3.6 cm. No pulmonary emboli. Aorta: Mild atherosclerosis. No aortic aneurysm. No aortic dissection. Lungs: Emphysema. Small lingular ground-glass opacity. Right middle and lingular compressive atelectasis. No consolidation. No masses. Stable pulmonary micro nodules and calcified granulomas. Pleural spaces: Unremarkable. No pneumothorax. No pleural effusion. Heart: Left atrial enlargement. No pericardial effusion. Aortic valvular and mitral annular calcifications. Coronary arteries: Mild coronary artery calcifications. Lymph nodes: Stable mildly enlarged right lower paratracheal lymph node. Gallbladder and bile ducts: Cholecystectomy. Bones/joints: Degenerative changes. No acute fracture. Soft tissues: Unremarkable. IMPRESSION: 1. No pulmonary artery embolism. 2. Small lingular ground-glass opacity, possibly related to an infectious or inflammatory process. COMMENTS: The presence of pulmonary emphysema on CT is an independent risk factor for lung cancer. In the absence of a history or active diagnosis of lung cancer, it is recommended that this patient with emphysema be evaluated for enrollment in a low dose CT lung cancer screening program.
[2024-04-08 20:33] LABS: NT Pro Brain Natriuretic Pep. 559 pg/mL (0-125); Troponin I < 0.01 ng/ml (0.00-0.034)
[2024-04-08] MEDS: 0.9 % SODIUM CHLORIDE 50 ML VIAL IV (21:07)
[2024-04-08] MEDS: SODIUM CHLORIDE 0.9% 10ML SYR (RAD ONLY) 10 ML IV (21:07)
[2024-04-08] MEDS: IOPAMIDOL-370 (76%);100ML BOTTLE 70 ML IV (21:07)
[2024-04-08] MEDS: diphenhydrAMINE 50MG/ML VIAL 50 MG IV (21:09)
--- NOTE | 2024-04-08 21:20 | PC.NURSE ---
Pt was experiencing an anxiety/panic episode after coming back from CT. Pt states she gets nervous and feels like she can't breath. Pt was given 50 Benadryl IV to calm herself down. Pt's vitals are now stable and she's more comfortable.
[2024-04-08] MEDS: METHYLPREDNISOLONE SOD SUCC 125MG VIAL 125 MG IV (21:48)
[2024-04-08] MEDS: CEFTRIAXONE SODIUM 2 GM in 0.9 % SODIUM CHLORIDE 100 ML IV (21:48)
[2024-04-08] MEDS: AZITHROMYCIN 500 MG in 0.9 % SODIUM CHLORIDE 250 ML 250 MG IV (22:30)
--- NOTE | 2024-04-08 22:33 | P.HP_ITS ---
History of Present Illness *Admission Date: 04/08/24 *Reason for visit:: SOB *History of present illness: This is a 68-year-old female PMHx of COPD on home oxygen as needed, TALIB, heavy daily tobacco use, hypertension, and hyperlipidemia presenting to the emergency department for evaluation with concern for shortness of breath that has been worsening over the last couple months. Today started feeling out breath a few hours ago. She states she is been doing her breathing treatments and inhalers at home, but she feels like she cannot get air at all. She has had a cough and has been using [id number] cough medication for 2 days. She notes increased sputum production. No fevers, chest pain, vomiting, or other concerns. She does note that she has had some mild leg swelling. No history of blood clots or clotting disorders. She was seen by her primary care provider 04/04 and had an x-ray done as well as labs, which demonstrated persistent chronic leukocytosis but no acute cardiopulmonary issues, medical record review. Admitted for further treatment and mangement. [facility] Disclaimer: The information contained in this section may have been updated after the patient was seen, as this information can be updated by other users. 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 Surgical History History of laparoscopic cholecystectomy History of hysterectomy Family History Sister Lung cancer Brother Lung cancer Other Cancer Family history of DVT Family history of diabetes mellitus type II Family history of stroke Social History (Updated 04/08/24 @ 23:11 by Tea Wallace RN) Smoking Status: Current every day smoker tobacco type: cigarettes packs per day: 1 alcohol intake: current alcohol intake frequency: 3 or more drinks per day substance use type: denies use current occupational status: retired Travel in the last 8 weeks: None household members: spouse housing: house caffeine: Yes Review of Systems Review of Systems Review of systems:: pertinent systems reviewed and negative unless documented below Meds Home Medications and Allergies Home Medications Medication Instructions Recorded Confirmed Type ibuprofen 600 mg tablet 600 mg PO Q6HP PRN Moderate Pain 08/06/23 04/08/24 Rx #20 tabs albuterol sulfate 1.25 mg/3 mL 1.25 mg (3 mL) inhalation QID PRN 01/11/24 04/08/24 Rx solution for nebulization shortness of breath or wheezing #90 mL albuterol sulfate 90 mcg/actuation 2 inh inhalation QID PRN shortness 01/11/24 04/08/24 Rx aerosol inhaler of breath or wheezing 90 days #8.5 grams aspirin 81 mg tablet,delayed 81 mg PO DAILY #90 tabs 01/11/24 04/08/24 Rx release bisoprolol fumarate 5 mg tablet 5 mg PO BID BLOOD PRESSURE #180 01/11/24 04/08/24 Rx tabs fluticasone fur. 200 mcg-umeclid 1 inh inhalation DAILY COPD #90 ea 01/11/24 04/08/24 Rx 62.5 mcg-vilant 25 mcg inhalat.powder (Trelegy Ellipta) olmesartan 40 mg tablet 40 mg PO DAILY BP #90 tabs 01/11/24 04/08/24 Rx pravastatin 40 mg tablet 40 mg PO HS . #90 tabs 01/11/24 04/08/24 Rx amlodipine 10 mg tablet 10 mg PO DAILY #90 tabs 01/12/24 04/08/24 Rx mirtazapine 15 mg tablet (Remeron) 15 mg PO HS #90 tabs 03/29/24 04/08/24 Rx cholecalciferol (vitamin D3) 1,250 1,250 mcg PO WEEKLY #5 tabs 04/04/24 04/08/24 Rx mcg (50,000 unit) tablet hydrochlorothiazide 25 mg tablet 12.5 mg PO DAILY 04/08/24 History doxycycline hyclate 100 mg tablet 100 mg PO BID 5 days #10 tabs 04/09/24 Rx nicotine 21 mg/24 hr daily 21 mg transdermal DAILYP PRN 04/09/24 Rx transdermal patch Nicotine Cravings #28 ea prednisone 20 mg tablet 40 mg (2 x 20 mg) PO DAILY 4 days 04/09/24 Rx #8 tabs New Prescriptions to Start Prescriptions: doxycycline hyclate Maye,David nicotine Maye,David prednisone Maye,David Allergies Allergy/AdvReac Type Severity Reaction Status Date / Time acetaminophen [From Tylenol] Allergy Verified 03/29/24 10:10 clarithromycin [From Biaxin] Allergy Verified 03/29/24 10:10 Sulfa (Sulfonamide Allergy Verified 03/29/24 10:10 Antibiotics) levofloxacin AdvReac Intermediate difficulty Verified 03/29/24 10:10 urinating tramadol AdvReac Intermediate Vomiting Verified 03/29/24 10:10 Exam Data for Last 24 hours Vital signs and Labs for Last 24 Hours: Temp Pulse Resp BP Pulse Ox O2 Del Method O2 Flow Rate 98.2 F 68 22 115/67 83 L Room Air 2 04/08/24 19:39 04/08/24 21:31 04/08/24 21:31 04/08/24 21:31 04/08/24 21:31 04/08/24 21:31 04/08/24 19:39 Laboratory Results - last 24 hr 04/08/24 19:32: WBC 13.9 H, RBC 4.09 L, Hgb 14.0, Hct 41.3, MCV 100.8 H, MCH 34.2 H, MCHC 34.0, RDW 13.5, Plt Count 409, MPV 8.5, Neut % (Auto) 52.9, Lymph % (Auto) 28.0, Wolfe % (Auto) 6.5, Eos % (Auto) 10.8, Baso % (Auto) 1.8, Neut # (Auto) 7.3, Lymph # (Auto) 3.9, Wolfe # (Auto) 0.9, Eos # (Auto) 1.5 H, Baso # (Auto) 0.3 H, D-Dimer 0.61 H 04/08/24 20:01: VBG pH 7.38, VBG pCO2 43.6, VBG pO2 33.2, VBG HCO3 25.0, VBG Total CO2 26.3, VBG O2 Saturation 68.8, VBG Base Excess -0.2, VBG Lactic Acid 2.0 04/08/24 20:24: SARS-CoV-2 (PCR) Not detected, Influenza A Untype (PCR) Not detected, Influenza Type B (PCR) Not detected 04/08/24 : Sodium 141, Potassium 3.6, Chloride 100, Carbon Dioxide 29, Anion Gap 15.6 H, BUN 13, Creatinine 0.80, Estimated Creat Clear 62, Estimated GFR 71, Est GFR ( Amer) 86, Glucose 99, Calcium 10.1, Total Bilirubin 0.4, AST 48 H, ALT 40, Alkaline Phosphatase 96, Troponin I < 0.01, NT-Pro-B Natriuret Pep 559 H , Total Protein 7.6, Albumin 4.6, Globulin 3.0, Albumin/Globulin Ratio 1.5 I & O for Last 24 hours: Intake & Output 04/05/24 04/06/24 04/07/24 04/08/24 23:59 23:59 23:59 23:59 Weight 72.575 kg Constitutional Constitutional: moderate distress, thin and cooperative *Routine HEENT Exam Head: Present normocephalic Eye: Present EOMI and PERRL ENT: Present mucous membranes moist *Routine Neck Exam Neck: Present supple; Absent lymphadenopathy *Routine Respiratory Exam Respiratory: Present CTA bilaterally, prolonged expiratory phase, rhonchi, wheezes, diminished air movement and symmetric chest movement *Routine Cardiovascular Exam Cardiovascular: Present RRR, Normal S1 and Normal S2 *Routine Abdominal Exam Abdominal: Present soft and normoactive bowel sounds; Absent tenderness *Routine Rectal Exam Rectal:: deferred *Routine Genitalia Exam Genitalia:: deferred *Routine Extremities Exam Extremities: Absent cyanosis, clubbing or edema *Routine Skin Exam Skin: Present warm; Absent rash *Routine Neurological Exam Neurological: Present alert and oriented X3 H&P: Result Imaging and Cardiology EKG: Status: image reviewed by me, Preliminary report and final report Chest x-ray: Status: Preliminary report and final report CT scan - chest: Status: image reviewed by me, Preliminary report and final report Assessment and Plan *Assessment and plan (1) Acute hypoxic respiratory failure: Status: Acute Category: Medical Code(s): J96.01 - Acute respiratory failure with hypoxia (2) Acute exacerbation of chronic obstructive pulmonary disease: Status: Acute Category: Medical Code(s): J44.1 - Chronic obstructive pulmonary disease with (acute) exacerbation (3) Pneumonia: Status: Acute Qualifiers: Laterality: right Lung location: upper lobe of lung Pneumonia type: due to unspecified organism Qualified Code(s): J18.9 - Pneumonia, unspecified organism Category: Medical Code(s): J18.9 - Pneumonia, unspecified organism (4) Hypertension: Status: Chronic Qualifiers: Hypertension type: essential hypertension Qualified Code(s): I10 - Essential (primary) hypertension Category: Medical Code(s): I10 - Essential (primary) hypertension (5) TALIB (obstructive sleep apnea): Status: Chronic Category: Medical Code(s): G47.33 - Obstructive sleep apnea (adult) (pediatric) (6) Tobacco abuse: Status: Chronic Category: Medical Code(s): Z72.0 - Tobacco use Plan 68-year-old female PMHx of COPD on home oxygen as needed, TALIB, heavy daily tobacco use, hypertension, and hyperlipidemia presenting to the emergency department for evaluation with concern for shortness of breath that has been worsening over the last couple months. Labs were obtained that demonstrated leukocytosis and mildly elevated D-dimer. CT PE protocol was ordered which did not show any PE, but patient does have findings concerning for pneumonia. Patient continue to desaturate after attempt to wean off oxygen . therefore admission was requested. Discussed with ED. Agreed. Plan as follow: -Acute on chronic hypoxic respiratory failure Secondary to COPD exacerbation and pneumonia Admit patient Started on ceftriaxone and Zithromax. Will continue with doxycycline due to history of allergies Pending culture Checks x-ray and CTA reviewed Monitor for O2 saturation. Currently on 2 L nasal cannula. Respiratory therapy assisted with care DuoNeb every 6 Decadron 6 mg IV daily Resume reconcile home inhalers and nebulizer treatment Pulmonology consulted for establish outpatient follow-up Monitor for sepsis -History of hypertension sleep apnea: Resume aspirin amlodipine bisoprolol Statin Tobacco use: Educated in smoke cessation. Spent more than 15 minutes advised smoking cessation strategies. Patient did try to stop previously Lovenox for DVT prophylaxis on Protonix Full code Rounded on patient after nurse practitioner. Personally examined and interviewed patient. Agree with exam findings and care plan as documented.
--- NOTE | 2024-04-08 22:39 | PC.NURSE ---
Report called to NENA Franklin
--- OUTSIDE RECORDS SUMMARY | 2024-04-08 22:58 | XMS_ITS | Clinical Summary ---
Author Name Unknown Address [address] [place] [address] Phone Organization [facility] , [facility] Address [address] [place] [address] Phone Care Team Providers Care Oracle Programmer Name Role Phone Anel VENEGAS, Nuvia Unavailable [phone] Moreno SPAIN-CAnalilia Unavailable [phone] Reason for Visit and Chief Complaint MRI Problems Includes: Problems addressed during this encounter and other active Problems All Visits Onset Date Resolved Date Provider Condition S tatus Lower Back Pain 12/21/2023 Nuvia champion MD Active Last Documented On 4 8:50AM ; [facility], [facility] Neck Pain 12/21/2023 Nuvia Tam MD Active Last Documented On 4 8:50AM ; [facility] Plan of Treatment No Plan of Treatment Recorded Assessments Includes: Assessments from this encounter No Assessments Recorded Medical Equipment - Implanted Devices Includes: Current Devices No Medical Equipment Recorded Medications Includes: Medications discussed during this encounter and other current Medications Current Medications (continue as prescribed) amLODIPine Besylate 10 MG Oral Tablet 01/12/2024 Pro vider: Diagnosis: Last Documented On 4 8:39AM By Eva Rudolph [facility], [facility] Albuterol Sulfate HFA 108 (9 0 Base) MCG/ACT Inhalation Aerosol Solution 01/11/2024 Provider: Diagnosis: Last Documented On 4 8:39AM By Eva Rudolph [facility], [facility] Aspirin Low Dose 81 MG Oral Tablet Delayed Release 09/2024 Provider: Diagnosis: Last Documented On 4 8:39AM By Eva Temple ; [facility], [facility] Bisoprolol Fumarate 5 MG Oral Tablet 01/11/2024 Prov ider: Diagnosis: Last Documented On 4 8:39AM By Eva Temple ; [facility], [facility] Olmesartan Medoxomil 40 MG Oral Tablet 01/11/2024 Pr ovider: Diagnosis: Last Documented On 4 8:39AM By Eva Temple ; [facility], [facility] Pravastatin Sodium 40 MG Oral Tablet 01/11/2024 Prov ider: Diagnosis: Last Documented On 4 8:39AM By Eva Temple ; [facility], [facility] Trelegy Ellipta 200-62.5-25 MCG/ACT Inhalation Aerosol Powder Breath Activated 01/11/2024 Provider: Diagnosis: Last Documented On 4 8:39AM By Eva Temple ; [facility], [facility] Cetirizine HCl 10 MG Oral Tablet 01/07/2024 Provider : Diagnosis: Last Documented On 4 8:39AM By Eva Temple ; [facility], [facility] levoFLOXacin 25 MG/ML Oral Solution 12/21/2023 Provi janice: Diagnosis: Last Documented On 4 8:20AM By Sonja Palmer ; [facility], [facility] predniSONE 10 MG Oral Tablet 12/21/2023 Provider: Diagnosis: Last Documented On 4 8:21AM By Sonja Palmer ; [facility], [facility] cloNIDine HCl 0.1 MG Oral Tablet 12/21/2023 Provider : Diagnosis: Last Documented On 4 8:21AM By Sonja Palmer ; [facility], [facility] Doxycycline Hyclate 100 MG Oral Capsule 12/21/2023 P rovider: Diagnosis: Last Documented On 4 8:20AM By Sonja Palmer ; [facility], [facility] Medications Administered Includes: Administered Medications from this encounter No Administered Medications Recorded Results Includes: Results discussed during this encounter No Results Recorded For Specified Dates History of Present Illness Includes: History of Present Illness from this encounter No History of Present Illness Recorded Social History No Social History Recorded - Smoking Status Unknown Procedures and Surgical History Includes: Procedures from this encounter Procedures Code Diagnosis Performing Provider Service Location Service Date MRI NECK SPINE W/O DYE [id number] Cervicalgia Nuvia Tam MD [facility] 01/01/2024 Last Documented On 4 6:20AM ; [facility] Medical History Includes: Medical History addressed during this encounter No Medical History Recorded Family History Includes: Family History addressed during this encounter No Family History Recorded Review of Systems Includes: Review of Systems from this encounter No Review of Systems Recorded Mental Status Includes: Mental Status from this encounter No Mental Status Recorded Functional Status Includes: Functional Status from this encounter No Functional Status Recorded Physical Exam Includes: Physical Exam from this encounter No Physical Exam Recorded Allergies Includes: Active Allergies Substance Type Reaction Onset Date Resolved Date Statu s traMADol HCl Allergy 02/15/2024 Active Last Documented On 4 8:39AM ; [facility] Encounters Encounter Provider Location Date Check-In Time Check-Out Time Diagnosis MRI [facility] 01/01/2024 9:46AM 10:20AM Insurance Includes: Active Insurance Policies Plan Name Member ID Group # Subscriber Relationship Effect mat Dates 1 - [facility] [id number] Efra Davenport A 4 - Unknown Clinical Notes Includes: Clinical Notes from this encounter No Clinical Notes Recorded
--- OUTSIDE RECORDS SUMMARY | 2024-04-08 22:58 | XMS_ITS ---
Care Plan - [facility], [facility] Created on: April 08, 2024 Bhavana Davenport : 1955 Sex: Female Author Name Unknown Address [address] [place] [address] [place] [address] Phone Organization [facility] , [facility] Address [address] [place] [address] Phone Care Team Providers Care Wing Mailer Machine Operator Name Role Phone Anel VENEGAS, Nuvia Unavailable [phone] Analilia Mayer PA-C Unavailable [phone]
--- OUTSIDE RECORDS SUMMARY | 2024-04-08 22:58 | XMS_ITS ---
Author Name Unknown Address [address] [place] [address] Phone Organization [facility] Address [address] [place] [address] Phone Care Team Providers Care Cloth Booker Name Role Phone Anel VENEGAS, Nuvia Unavailable [phone] Moreno SPAIN-Analilia Sandoval Unavailable [phone] Problems Includes: Active, inactive, and resolved Problems All Visits Onset Date Resolved Date Provider Condition S tatus Lower Back Pain 12/21/2023 Nuvia champion MD Active Last Documented On 4 8:50AM ; UMANG JOY Neck Pain 12/21/2023 Nuvia Tam MD Active Last Documented On 4 8:50AM ; FILIBERTO CONNELL, [facility] Plan of Treatment Pending Tests Order Diagnosis Results Due Ordering P rovider Radiology - MRI MRI Cervical Spine Cervicalgia 01/04/24 Nuvia Tam MD Last Documented On 4 9:46AM ; FILIBERTO CONNELL, [facility] Instructions to patient Intervention and counseling on cessation of tobacco use Last Documented On 4 8:28AM ; [facility] CONNELL, [facility] Lose weight Last Documented On 4 8:31AM ; [facility] CONNELL, [facility] Intervention and counseling on cessation of tobacco use Last Documented On 4 8:29AM ; FILIBERTO FAUSTINS, [facility] Assessments Includes: Assessments for all patient encounters Findings Encounter Date Overweight Follow Up with Nuvia Munroe MD 02/15/2024 Last Documented On 4 9:39AM ; [facility] Instructions Includes: Instructions for all patient encounters Instructions to patient Intervention and counseling on cessation of tobacco use Last Documented On 4 8:28AM ; [facility] Lose weight Last Documented On 4 8:31AM ; [facility] Intervention and counseling on cessation of tobacco use Last Documented On 4 8:29AM ; [facility] Medical Equipment - Implanted Devices Includes: Current and historical Devices No Medical Equipment Recorded Medications Includes: Current and historical Medications Current Medications (continue as prescribed) amLODIPine Besylate 10 MG Oral Tablet 01/12/2024 Pro vider: Diagnosis: Last Documented On 4 8:39AM By Eva Temple ; [facility] Albuterol Sulfate HFA 108 (9 0 Base) MCG/ACT Inhalation Aerosol Solution 01/11/2024 Provider: Diagnosis: Last Documented On 4 8:39AM By Eva Temple ; [facility] Aspirin Low Dose 81 MG Oral Tablet Delayed Release 09/2024 Provider: Diagnosis: Last Documented On 4 8:39AM By Eva Rudolph [facility] Bisoprolol Fumarate 5 MG Oral Tablet 01/11/2024 Prov ider: Diagnosis: Last Documented On 4 8:39AM By Eva Temple ; [facility] Olmesartan Medoxomil 40 MG Oral Tablet 01/11/2024 Pr ovider: Diagnosis: Last Documented On 4 8:39AM By Eva Temple ; [facility] Pravastatin Sodium 40 MG Oral Tablet 01/11/2024 Prov ider: Diagnosis: Last Documented On 4 8:39AM By Eva Temple ; [facility] Trelegy Ellipta 200-62.5-25 MCG/ACT Inhalation Aerosol Powder Breath Activated 01/11/2024 Provider: Diagnosis: Last Documented On 4 8:39AM By Eva Temple ; [facility] Cetirizine HCl 10 MG Oral Tablet 01/07/2024 Provider : Diagnosis: Last Documented On 4 8:39AM By Eva Thar ; [facility], [facility] levoFLOXacin 25 MG/ML Oral Solution 12/21/2023 Provi janice: Diagnosis: Last Documented On 4 8:20AM By Sonja Palmer ; [facility], [facility] predniSONE 10 MG Oral Tablet 12/21/2023 Provider: Diagnosis: Last Documented On 4 8:21AM By Sonja Palmer ; [facility], [facility] cloNIDine HCl 0.1 MG Oral Tablet 12/21/2023 Provider : Diagnosis: Last Documented On 4 8:21AM By Sonja Palmer ; [facility], [facility] Doxycycline Hyclate 100 MG Oral Capsule 12/21/2023 P rovider: Diagnosis: Last Documented On 4 8:20AM By Sonja Palmer ; [facility], [facility] Past Medications on file amLODIPine Besylate 5 MG Oral Tablet 01/11/2024 - 12/31 Provider: Diagnosis: Last Documented On 4 9:26AM By Nuvia Tam ; [facility], [facility] Bisoprolol Fumarate 10 MG Oral Tablet 12/21/2023 - Provider: Diagnosis: Last Documented On 4 9:27AM By Nuvia Tam ; [facility], [facility] Pravastatin Sodium 10 MG Oral Tablet 12/21/2023 - 12/31 Provider: Diagnosis: Last Documented On 4 9:27AM By Nuvia Tam ; [facility], [facility] Olmesartan Medoxomil 20 MG Oral Tablet 12/21/2023 - Provider: Diagnosis: Last Documented On 4 9:27AM By Nuvia Tam ; [facility], [facility] amLODIPine Benzoate 1 MG/ML Oral Suspension 12/21/2023 - 01/19/2024 Provider: Diagnosis: Last Documented On 4 9:26AM By Nuvia Tam ; [facility], [facility] Medications Administered Includes: Administered Medications in patient's chart No Administered Medications Recorded Vital Signs Includes: Vital Signs from 04/08/2023 through 04/08/2024 Vital Name 02/15/2024 08:37A 12/21/2023 08: 24A Height (in) 65 65 Weight (lb) 165 166 Body Mass Index 27.5 27.6 Body Surface Area 1.8 1.8 Note: ct lms Last Documented: On 02/15/2024 8:37AM ; [facility], [facility] On 12/21/2023 8:24AM ; [facility], [facility] Results Includes: Results from 04/08/2023 through 04/08/2024 No Results Recorded For Specified Dates History of Present Illness History of Present Illness not supported for this document type No History of Present Illness Recorded Social History Description Last Updated Tobacco use 12/21/2023 Last Documented On 4 9:46AM ; [facility] Alcohol use 12/21/2023 Last Documented On 4 9:46AM ; [facility] Caffeine use 12/21/2023 Last Documented On 4 9:46AM ; [facility], [facility] No recent change in diet 12/21/2023 Last Documented On 4 9:46AM ; [facility], [facility] Not exercising regularly 12/21/2023 Last Documented On 4 9:46AM ; [facility], [facility] Not using drugs 12/21/2023 Last Documented On 4 9:46AM ; [facility], [facility] Yes, current smoker. 12/21/2023 Last Documented On 4 9:46AM ; [facility] Smoking Status Unknown Procedures and Surgical History Includes: Procedures from 04/08/2023 through 04/08/2024 Procedures Code Diagnosis Performing Provider Service Location Service Date Triamcinolone/Ke nalog, 10mg per cc J3301 Spondyls w/o myelopathy or radiculopathy, lumbosacr region Filiberto Cleaning CRNA [facility] 01/18/2024 Last Documented On 4 11:50AM ; [facility] INJECTION TRANSFORAMINAL EPI LUMBAR (Bilateral Procedure) 72051 Spondyls w/o myelopathy or radiculopathy, lumbosacr region Filiberto Cleaning CRNA [facility] 01/18/2024 Last Documented On 4 11:50AM ; [facility] MRI NECK SPINE W/O DYE [id number] Cervicalgia Nuvia champion MD [facility] 01/01/2024 Last Documented On 4 6:20AM ; [facility] C-Spine 4 views [id number] Spinal stenosis, cervical region Nuvia Tam MD [facility] 12/21/2023 Last Documented On 4 10:50AM ; [facility] Surgical History Last Updated History of History of Gallbladder 2023 Last Documented On 4 9:46AM ; [facility] History of hysterectomy 12/21/2023 Last Documented On 4 9:46AM ; [facility] Medical History Includes: Medical History in patient's chart Description Last Updated History of Anemia 12/21/2023 Last Documented On 4 9:46AM ; [facility] History of heart disease 12/21/2023 Last Documented On 4 9:46AM ; [facility] History of Hypertension 12/21/2023 Last Documented On 4 9:46AM ; [facility] Family History Includes: Family History in patient's chart Description Last Updated Family history of cancer 12/21/2023 Last Documented On 4 9:46AM ; [facility] Family history of heart disease 12/21/19 24 Last Documented On 4 9:46AM ; [facility] Review of Systems Review of Systems not supported for this document type No Review of Systems Recorded Mental Status Description No anxiety Functional Status No Functional Status Recorded Physical Exam Physical Exam not supported for this document type No Physical Exam Recorded Allergies Includes: Active, inactive, and resolved Allergies Substance Type Reaction Onset Date Resolved Date Statu s traMADol HCl Allergy 02/15/2024 Active Last Documented On 4 8:39AM ; [facility] Encounters Includes: Encounters from 04/08/2023 through 04/08/2024 Encounter Provider Location Date Check-In Time Check-Out Time Diagnosis Follow Up Nuvia champion MD [facility] 02/15/20 8:28AM 9:15AM Overweight Epidural Steroid Injection Filiberto Devaughn Hermila [employer] [facility] 01/18/20 24 8:33AM 8:59AM MRI [facility] 01/01/20 24 9:46AM 10:20AM Physician Specified Nuvia champion MD [facility] 12/21/19 8:08AM 8:50AM Insurance Includes: Active Insurance Policies Plan Name Member ID Group # Subscriber Relationship Effect mat Dates 1 - [employer] [place] [id number] Efra Davenport A 4 - Unknown Clinical Notes Includes: Signed Clinical Notes starting from 10/16/2022 * Progress note Date Encounter Last Documented by 02/15/2024 Follow Up Last documented on 02/15/2024; 9:39 AM, Nuvia Munroe MD; [facility] Active Problems & Conditions - Lower Back Pain - Neck Pain Chief Complaint The Chief Complaint is: Fu neck mri. Referred Here Referred by Dr. Harp. History of Present Illness Bhavana Davenport is a 68 year old female. - Symptoms numbness in right hand & leg after susan. - Allergy list reviewed - Problem list reviewed - Medication list reviewed - Previous history of new onset pain 07/26/2023 Work Injury - Patient pain level from 1-10: 5 -7 - Yes, previous treatment. - History of Physical Therapy 08/2023-09/2023 - History of Home Exercise - History of Injections Bilat L5-S1 TFESI Medications used for this condition: This is a 68 year old female following up with me after undergoing bilateral L5- S1 transforaminal epidural steroid injections. She said she got 4+ weeks of 85% pain relief both of her back pain in the right leg pain. She is also here today to review an MRI of her neck. She completed physical therapy from 08/2023 thru 09/2023. She was provided a home exercise program at in August 2023 and she continues daily. Current Medication - Albuterol Sulfate HFA 108 (90 Base) MCG/ACT Inhalation Aerosol Solution 90 days, 0 refills - amLODIPine Besylate 10 MG Oral Tablet 90 days, 0 refills - Aspirin Low Dose 81 MG Oral Tablet Delayed Release 90 days, 0 refills - Bisoprolol Fumarate 5 MG Oral Tablet 90 days, 0 refills - Cetirizine HCl 10 MG Oral Tablet 90 days, 0 refills - cloNIDine HCl 0.1 MG Oral Tablet use as directed 0 days, 0 refills - Doxycycline Hyclate 100 MG Oral Capsule use as directed 0 days, 0 refills - levoFLOXacin 25 MG/ML Oral Solution use as directed 0 days, 0 refills - Olmesartan Medoxomil 40 MG Oral Tablet 90 days, 0 refills - Pravastatin Sodium 40 MG Oral Tablet 90 days, 0 refills - predniSONE 10 MG Oral Tablet use as directed 0 days, 0 refills - Trelegy Ellipta 200-62.5-25 MCG/ACT Inhalation Aerosol Powder Breath Activated 90 days, 0 refills Past Medical/Surgical History Diagnoses: Heart disease. Anemia Hypertension Surgical: - Hysterectomy - History of Gallbladder Social History Yes, current smoker. Current diet: No recent change in diet. Caffeine use: Caffeine use. Tobacco use: Tobacco use. Alcohol: Alcohol use. Drug Use: Not using drugs. Habits: Not exercising regularly. Allergies - traMADol HCl Family History Cancer Heart disease Review Of Systems Systemic: Feeling tired. No recent weight loss. Recent weight gain. Head: No headache and no sinus pain. Eyes: No vision problems, no Cataracts, no Glasses/Contacts, and no Glaucoma. Otolaryngeal: No hearing loss and no tinnitus. Cardiovascular: No chest pain or discomfort and no palpitations. Hypertension and High Cholesterol. Pulmonary: No daytime asthma symptoms. Chronic cough and wheezing. Gastrointestinal: No heartburn. Abdominal pain. No Indigestion, no Acid Reflux, no Peptic Ulcer, no GI Stomach Bleed, and no Ulcers. Endocrine: No hot flashes, no muscle weakness, no Diabetes, no Hypothyroid, and no Hyperthyroid. Hematologic: No easy bleeding. A tendency for easy bruising. No Anemia. Musculoskeletal: No Arthritis. Lower back pain and soft tissue swelling. No localized joint pain. Neurological: No dizziness and no convulsions. Numbness. Psychological: No anxiety, no emotional lability, and no depression. Insomnia. Not crying for no reason. Skin: No dry skin. No Ulcers, no Scars, and no rash. Allergic and Immunologic: No complaint of seasonal allergic reaction. Physical Findings - Vitals taken 02/15/2024 08:[address] Height 65 in Weight 165 lbs Body Mass Index 27.5 kg/m2 Body Surface Area 1.8 m2 General: Alert and Oriented A&O x 3 Focused Musculoskeletal Exam of the Spine: No focal tenderness in the cervical, thoracic, or lumbar spine Motor EF WE T FF HI Right 5/5 5/5 5/5 5/5 5/5 Left 5/5 5/5 5/5 5/5 5/5 Sensation C5 C6 C7 C8 T1 Right 2 2 2 2 2 Left 2 2 2 2 2 Biceps reflex is 3+ bilaterally Brachioradialis reflex is 2+ bilaterally Triceps reflex is 2+ bilaterally Weakly positive Cross's on the right Patient is able to ambulate in the room without assistive device Symmetric, palpable radial pulses bilaterally Motor HF KE AD EHL GS Right 5/5 5/5 5/5 5/5 5/5 Left 5/5 5/5 5/5 5/5 5/5 Sensation L2 L3 L4 L5 S1 Right 2 2 2 1 2 Left 2 2 2 1 2 Patellar reflex is 3+ bilaterally Achilles reflex is 2+ bilaterally No ankle clonus Symmetric, palpable posterior tibialis pulse bilaterally Tests MRI cervical spine. Most importantly, I do not see any myelomalacia or spinal cord edema. There is redemonstration of loss of cervical lordosis and cervical kyphosis. She does have a spondylolisthesis of C4 on C5. There is severe disc degeneration at C5-6 with large anterior osteophytes at this level as well. At C5-6 I think there is some severe left foraminal stenosis and more moderate right foraminal stenosis but no real central pathology User Defined 5 This is a 68-year-old female with cervical kyphosis, right greater than left lumbar radiculopathy, and degenerative disc disease at L5-S1. I had a long discussion with Bhavana in the office today. It sounds as though we are in the right place now with her injection. She would like to proceed with another bilateral L5-S1 transforaminal epidural steroid injection I think that has a reasonable plan. Fall Risk Assessment: This patient has been identified as a fall risk. Balance/gait along with postural blood pressure, vision and home fall hazards have been assessed. Medications have been reviewed, and recommendations made with regard to contributing factors for future falls. Plan of care: Consideration of vitamin D supplementation along with balance and strength training with consideration for formal physical therapy has been discussed with the patient. Assessment - Overweight Previous Tests Imaging: X-Ray: An X-ray was performed 09/03/2023 SI Joints 09/03/2023 LSpine 12/21/2023 Neck @ [facility]. MRI Scan: An MRI was performed 10/28/2023 LSpine @ [facility] 01/01/2024 Neck @ [facility] Therapy - Intervention and counseling on cessation of tobacco use. Counseling/Education - Lose weight Practice Management Use of tobacco assessment performed Review of medications documented. Care Team - Analilia Mayer PA-C Notes This dictation was done with voice recognition software and may contain errors and omissions. * Progress note Date Encounter Last Documented by 01/18/2024 Epidural Steroid Injection Last documented on 01/20/2024; 2:38 PM, Filiberto Cleaning [employer] SERVICES MANAGER; [facility], [facility] Plan BILATERAL L5-S1 TRANSFORAMINAL SUSAN dx: stenosis, radiculopathy Details of the procedure were The patient. The patient was taken to the procedure room placed in the prone fish on the fluoroscopy table. The area over the lumbar spine was cleansed using chlorhexidine as a cleansing solution. Using fluoroscopy guidance markers were placed over the BILATERAL lateral border of the L5 vertebral body. The skin and subcutaneous tissue was anesthetized using 1% lidocaine and 25-gauge needle. Under fluoroscopy guidance 22-gauge 3 inch spinal needle was used to access the upper one third of the BILATERAL L5-S1 foramen. Needle position was confirmed using fluoroscopy guidance and contrast dye in a lateral view. Positive neurogram was observed using 0.5 cc of contrast dye at each level. At this time 1 cc of 1% lidocaine and 40 mg of kenalog was injected at each. Needle was removed. Band-Aid applied. Patient tolerated the procedure without difficulty. There were no complications. Patient was reevaluated 15 minutes post procedure. Patient reports improvement in terms of BILATERAL hip and leg pain. Notes This dictation was done with voice recognition software and may contain errors and omissions. * Progress note Date Encounter Last Documented by 12/21/2023 Physician Specified Babak mateo simpson on 12/21/2023; 9:46 AM, Nuvia Tam MD; [facility], [facility] Active Problems & Conditions - Lower Back Pain - Neck Pain Chief Complaint The Chief Complaint is: Low back pain. Referred Here Referred by Dr. Harp. History of Present Illness Bhavana Davenport is a 68 year old female. - Allergy list reviewed - Problem list reviewed - Medication list reviewed - Previous history of new onset pain 07/26/2023 Work Injury - Patient pain level from 1-10: 8 - Yes, previous treatment. - History of Physical Therapy 08/2023-09/2023 - History of Home Exercise - History of Injections Medications used for this condition: This is a 68-year-old female seeing me for the 1st time today. In fact, she is technically new to [facility]. I believe she has been following with Dr. Harp in pain management. She would also seeing an orthopedic spine provide her in [facility] several years ago. She is here today complaining predominantly of right lower extremity radiculopathy and to a lesser degree left lower extremity radiculopathy. She also informs me that her hands are starting to go numb particularly when she looks towards the ceiling or towards the floor. She denies any overt problems with fine motor control in the hands and denies any issues with her balance, but does state that the numbness in her hands and her feet so he bothersome to her. She did attend physical therapy from 08/2023-09/2023 which caused her symptoms to flare up even more. She does continue the home exercise program she received in 08/2023 daily. We also provided her with our home exercise program for her neck and low back today. She has some hypertension and is a current smoker, but does not take a blood thinner. Current Medication - amLODIPine Benzoate 1 MG/ML Oral Suspension use as directed 0 days, 0 refills - Bisoprolol Fumarate 10 MG Oral Tablet use as directed 0 days, 0 refills - cloNIDine HCl 0.1 MG Oral Tablet use as directed 0 days, 0 refills - Doxycycline Hyclate 100 MG Oral Capsule use as directed 0 days, 0 refills - levoFLOXacin 25 MG/ML Oral Solution use as directed 0 days, 0 refills - Olmesartan Medoxomil 20 MG Oral Tablet use as directed 0 days, 0 refills - Pravastatin Sodium 10 MG Oral Tablet use as directed 0 days, 0 refills - predniSONE 10 MG Oral Tablet use as directed 0 days, 0 refills Past Medical/Surgical History Diagnoses: Heart disease. Anemia Hypertension Surgical: - Hysterectomy - History of Gallbladder Social History Yes, current smoker. Current diet: No recent change in diet. Caffeine use: Caffeine use. Tobacco use: Tobacco use. Alcohol: Alcohol use. Drug Use: Not using drugs. Habits: Not exercising regularly. Allergies - No Known Allergies Family History Cancer Heart disease Review Of Systems Systemic: Feeling tired. No recent weight loss. Recent weight gain. Head: No headache and no sinus pain. Eyes: No vision problems, no Cataracts, no Glasses/Contacts, and no Glaucoma. Otolaryngeal: No hearing loss and no tinnitus. Cardiovascular: No chest pain or discomfort and no palpitations. Hypertension and High Cholesterol. Pulmonary: No daytime asthma symptoms. Chronic cough and wheezing. Gastrointestinal: No heartburn. Abdominal pain. No Indigestion, no Acid Reflux, no Peptic Ulcer, no GI Stomach Bleed, and no Ulcers. Endocrine: No hot flashes, no muscle weakness, no Diabetes, no Hypothyroid, and no Hyperthyroid. Hematologic: No easy bleeding. A tendency for easy bruising. No Anemia. Musculoskeletal: No Arthritis. Lower back pain and soft tissue swelling. No localized joint pain. Neurological: No dizziness and no convulsions. Numbness. Psychological: No anxiety, no emotional lability, and no depression. Insomnia. Not crying for no reason. Skin: No dry skin. No Ulcers, no Scars, and no rash. Allergic and Immunologic: No complaint of seasonal allergic reaction. Physical Findings - Vitals taken 12/21/2023 08:24 am lms Height 65 in Weight 166 lbs Body Mass Index 27.6 kg/m2 Body Surface Area 1.8 m2 General: Alert and Oriented A&O x 3 Focused Musculoskeletal Exam of the Spine: No focal tenderness in the cervical, thoracic, or lumbar spine Motor EF WE T FF HI Right 5/5 5/5 5/5 5/5 5/5 Left 5/5 5/5 5/5 5/5 5/5 Sensation C5 C6 C7 C8 T1 Right 2 2 2 2 2 Left 2 2 2 2 2 Biceps reflex is 3+ bilaterally Brachioradialis reflex is 2+ bilaterally Triceps reflex is 2+ bilaterally Weakly positive Cross's on the right Patient is able to ambulate in the room without assistive device Symmetric, palpable radial pulses bilaterally Motor HF KE AD EHL GS Right 5/5 5/5 5/5 5/5 5/5 Left 5/5 5/5 5/5 5/5 5/5 Sensation L2 L3 L4 L5 S1 Right 2 2 2 1 2 Left 2 2 2 1 2 Patellar reflex is 3+ bilaterally Achilles reflex is 2+ bilaterally No ankle clonus Symmetric, palpable posterior tibialis pulse bilaterally Tests Lumbar Spine X-ray Ap, Lateral, Flexion, and Extension views of the lumbar spine from an outside office were reviewed in the office today There is no obvious fracture or spondylolisthesis, there may be a very small amount of rotational type scoliosis in the thoracolumbar spine 4v Cervical Spine X-ray Ap, Lateral, Flexion, and Extension views of the Cervical Spine were reviewed in the office today There is some diffuse cervical spondylosis with no obvious fracture MRI lumbar spine There is really no meaningful central compressive pathology from L1 down to S1 There is severe bilateral foraminal stenosis at L5-S1 User Defined 5 This is a 68-year-old female with concern for cervical stenosis as well as bilateral foraminal stenosis most pronounced at L5-S1 It was nice meeting Bhavana in the office. I told her that I think some of her hand numbness in her hyperreflexia could be due to some compression in the cervical spine and we will assess this further with a MRI of the cervical spine. In addition, she has had a profound response to transforaminal epidural steroid injections placed at L5-S1 in the past so we will recommend she would bilateral transforaminal epidural steroid injections at L5-S1. Fall Risk Assessment: This patient has been identified as a fall risk. Balance/gait along with postural blood pressure, vision and home fall hazards have been assessed. Medications have been reviewed, and recommendations made with regard to contributing factors for future falls. Plan of care: Consideration of vitamin D supplementation along with balance and strength training with consideration for formal physical therapy has been discussed with the patient. Previous Tests Imaging: X-Ray: An X-ray was performed 09/03/2023 SI Joints 09/03/2023 LSpine 12/21/2023 Neck @ [facility]. MRI Scan: An MRI was performed 10/28/2023 LSemerald isle @ [facility]. Therapy - Intervention and counseling on cessation of tobacco use. Plan StartCited - Cervicalgia Radiology/MRI: MRI Cervical Spine EndCited Practice Management Use of tobacco assessment performed Review of medications documented. Care Team - Analilia Mayer PA-C Notes This dictation was done with voice recognition software and may contain errors and omissions.
--- OUTSIDE RECORDS SUMMARY | 2024-04-08 22:58 | XMS_ITS | Clinical Summary ---
Author Name Unknown Address [address] [place] [address] [place] [address] Phone Organization [facility] Address [address] [place] [address] Phone Care Team Providers Care German Professor Name Role Phone Anel VENEGAS, Nuvia Unavailable [phone] Analilia Mayer PA-C Unavailable [phone] Reason for Visit and Chief Complaint The Chief Complaint is: fu neck mri Problems Includes: Problems addressed during this encounter and other active Problems Current Visit Onset Date Resolved Date Provider Conditio n Status Lower Back Pain 12/21/2023 Nuvia champion MD Active Last Documented On 4 8:50AM ; [facility] Past Visits Onset Date Resolved Date Provider Condition Status Neck Pain 12/21/2023 Nuvia Tam MD Active Last Documented On 4 8:50AM ; [facility] Plan of Treatment Pending Tests Order Diagnosis Results Due [facility] Rad[facility] - MRI MRI Cervical Spine Cervicalgia 01/04/24 Nuvia Tam MD Last Documented On 4 9:46AM ; [facility] Instructions to patient Intervention and counseling on cessation of tobacco use Last Documented On 4 8:28AM ; [facility] Lose weight Last Documented On 4 8:31AM ; [facility], [facility] Assessments Includes: Assessments from this encounter Findings - Overweight - Last Documented On 02/15/2024 9:39AM ; [facility], [facility] Fall Risk Assessment: - Last Documented On 02/15/2024 9:39AM ; [facility] This patient has been identified as a fall risk. Balance/gait along with postural blood pressure, vision and home fall hazards have been assessed. Medications have been reviewed, and recommendations made with regard to contributing factors for future falls. - Last Documented On 02/15/2024 9:39AM ; [facility] Plan of care: Consideration of vitamin D supplementation along with balance and strength training with consideration for formal physical therapy has been discussed with the patient. - Last Documented On 02/15/2024 9:39AM ; [facility], [facility] Instructions Includes: Instructions from this encounter Instructions to patient Intervention and counseling on cessation of tobacco use Last Documented On 4 8:28AM ; [facility] Lose weight Last Documented On 4 8:31AM ; [facility] Medical Equipment - Implanted Devices Includes: Current Devices No Medical Equipment Recorded Medications Includes: Medications discussed during this encounter and other current Medications Current Medications (continue as prescribed) amLODIPine Besylate 10 MG Oral Tablet 01/12/2024 Pro vider: Diagnosis: Last Documented On 4 8:39AM By Eva Rudolph [facility] Albuterol Sulfate HFA 108 (9 0 Base) MCG/ACT Inhalation Aerosol Solution 01/11/2024 Provider: Diagnosis: Last Documented On 4 8:39AM By Eva Rudolph [facility] Aspirin Low Dose 81 MG Oral Tablet Delayed Release 09/2024 Provider: Diagnosis: Last Documented On 4 8:39AM By Eva Rudolph [facility] Bisoprolol Fumarate 5 MG Oral Tablet 01/11/2024 Prov ider: Diagnosis: Last Documented On 4 8:39AM By Eva Rudolph [facility] Olmesartan Medoxomil 40 MG Oral Tablet 01/11/2024 Pr ovider: Diagnosis: Last Documented On 4 8:39AM By Eva Rudolph [facility] Pravastatin Sodium 40 MG Oral Tablet 01/11/2024 Prov ider: Diagnosis: Last Documented On 4 8:39AM By Eva Temple ; [facility] Trelegy Ellipta 200-62.5-25 MCG/ACT Inhalation Aerosol Powder Breath Activated 01/11/2024 Provider: Diagnosis: Last Documented On 4 8:39AM By Eva Temple ; [facility] Cetirizine HCl 10 MG Oral Tablet 01/07/2024 Provider : Diagnosis: Last Documented On 4 8:39AM By Eva Temple ; [facility], [facility] levoFLOXacin 25 MG/ML Oral Solution 12/21/2023 Provi janice: Diagnosis: Last Documented On 4 8:20AM By Sonja Palmer ; [facility] predniSONE 10 MG Oral Tablet 12/21/2023 Provider: Diagnosis: Last Documented On 4 8:21AM By Sonja Palmer ; [facility] cloNIDine HCl 0.1 MG Oral Tablet 12/21/2023 Provider : Diagnosis: Last Documented On 4 8:21AM By Sonja Rudolph [facility] Doxycycline Hyclate 100 MG Oral Capsule 12/21/2023 P rovider: Diagnosis: Last Documented On 4 8:20AM By Sonja Palmer ; [facility], [facility] Medications Administered Includes: Administered Medications from this encounter No Administered Medications Recorded Vital Signs Includes: Vital Signs from this encounter Vital Name 02/15/2024 08:37A Height (in) 65 Weight (lb) 165 Body Mass Index 27.5 Body Surface Area 1.8 Note: ct Last Documented: On 02/15/2024 8:37AM ; [facility], [facility] Results Includes: Results discussed during this encounter No Results Recorded For Specified Dates History of Present Illness Includes: History of Present Illness from this encounter CECELIA Davenport is a 68 year old female. [...] in August 2023 and she continues daily. Social History Description Last Updated Tobacco use 12/21/2023 Last Documented On 4 8:28AM ; [facility], [facility] Alcohol use 12/21/2023 Last Documented On 4 8:28AM ; [facility], [facility] Caffeine use 12/21/2023 Last Documented On 4 8:28AM ; [facility] No recent change in diet 12/21/2023 Last Documented On 4 8:28AM ; [facility], [facility] Not exercising regularly 12/21/2023 Last Documented On 4 8:28AM ; [facility], [facility] Not using drugs 12/21/2023 Last Documented On 4 8:28AM ; [facility], [facility] Yes, current smoker. 12/21/2023 Last Documented On 4 8:28AM ; [facility], [facility] Smoking Status Unknown Procedures and Surgical History Includes: Procedures from this encounter Procedures Code Diagnosis Performing Provider Service L ocation Service Date intervention and counseling on cessation of tobacco use 4000F Last Documented On 4 8:28AM ; [facility], [facility] use of tobacco assessment performed 1000F Last Documented On 4 8:28AM ; [facility], [facility] review of medications documented 1160F Last Documented On 4 8:28AM ; [facility] an X-ray was performed 09/03 SI Joints ~09/03/2023 LSpine ~12/21/2023 [place] [id number] Last Documented On 4 8:28AM ; [facility], [facility] an MRI was performed 10/28/2023 LSpine @ [facility] ~ [place] @ [place] [id number] Last Documented On 4 8:31AM ; [facility], [facility] Surgical History Last Updated History of History of Gallbladder 2023 Last Documented On 4 8:28AM ; [facility] History of hysterectomy 12/21/2023 Last Documented On 4 8:28AM ; [facility], [facility] Medical History Includes: Medical History addressed during this encounter Description Last Updated History of Anemia 12/21/2023 Last Documented On 4 8:28AM ; [facility] History of heart disease 12/21/2023 Last Documented On 4 8:28AM ; [facility], [facility] History of Hypertension 12/21/2023 Last Documented On 4 8:28AM ; [facility], [facility] Family History Includes: Family History addressed during this encounter Description Last Updated Family history of cancer 12/21/2023 Last Documented On 4 8:28AM ; [facility], [facility] Family history of heart disease 12/21/19 Last Documented On 4 8:28AM ; [facility], [facility] Review of Systems Includes: Review of Systems from this encounter Systemic: Feeling tired. No recent weight loss. [...] Immunologic: No complaint of seasonal allergic reaction. Mental Status Includes: Mental Status from this encounter Description No anxiety Functional Status Includes: Functional Status from this encounter No Functional Status Recorded Physical Exam Includes: Physical Exam from this encounter Allergies Includes: Active Allergies Substance Type Reaction Onset Date Resolved Date Statu s traMADol HCl Allergy 02/15/2024 Active Last Documented On 4 8:39AM ; [facility], [facility] Encounters Encounter Provider Location Date Check-In Time Check-Out Time Diagnosis Follow Up Nuvia lynn MD [facility] 4 8:28AM 9:15AM Overweight Insurance Includes: Active Insurance Policies Plan Name Member ID Group # Subscriber Relationship Effect mat Dates 1 - [id number] Efra Davenport 4 - Unknown Clinical Notes Includes: Clinical Notes from this encounter * Progress note Date Encounter Last Documented by 02/15/2024 Follow Up Last documented on 02/15/2024; 9:39 AM, Nuvia Munroe MD; [facility] Active Problems & Conditions - [...] SI Joints 09/03/2023 LSpine 12/21/2023 Neck @ [facility]. MRI Scan: An MRI was performed 10/28/2023 [facility] @ [facility] 01/01/2024 Neck @ [facility]. Therapy - Intervention and counseling on cessation of tobacco use. Counseling/Education - Lose weight Practice Management Use of tobacco assessment performed Review of medications documented. Care Team - Analilia Mayer PA-C Notes This dictation was done with voice recognition software and may contain errors and omissions.
--- OUTSIDE RECORDS SUMMARY | 2024-04-08 22:58 | XMS_ITS | Clinical Summary ---
Author Name Unknown Address [address] [place] [address] Phone Organization [facility] Address [address] [place] [address] Phone Care Team Providers Care Smutter Name Role Phone Anel VENEGAS, Nuvia Unavailable [phone] Analilia Mayer PA-C Unavailable [phone] Reason for Visit and Chief Complaint Epidural Steroid Injection Problems Includes: Problems addressed during this encounter and other active Problems All Visits Onset Date Resolved Date Provider Condition S tatus Lower Back Pain 12/21/2023 Nuvia champion MD Active Last Documented On 4 8:50AM ; [facility] Neck Pain 12/21/2023 Nuvia Tam MD Active Last Documented On 4 8:50AM ; [facility] Plan of Treatment BILATERAL L5-S1 TRANSFORAMINAL GITA dx: stenosis, radiculopathy Details of the procedure [...] terms of BILATERAL hip and leg pain. - Last Documented On 01/20/2024 2:38PM ; [facility], [facility] Assessments Includes: Assessments from this encounter No Assessments Recorded Medical Equipment - Implanted Devices Includes: Current Devices No Medical Equipment Recorded Medications Includes: Medications discussed during this encounter and other current Medications Current Medications (continue as prescribed) amLODIPine Besylate 10 MG Oral Tablet 01/12/2024 Pro vider: Diagnosis: Last Documented On 4 8:39AM By Eva Temple ; [facility] Albuterol Sulfate HFA 108 (9 0 Base) MCG/ACT Inhalation Aerosol Solution 01/11/2024 Provider: Diagnosis: Last Documented On 4 8:39AM By Eva Temple ; [facility] Aspirin Low Dose 81 MG Oral Tablet Delayed Release 09/2024 Provider: Diagnosis: Last Documented On 4 8:39AM By Eva Rudolph [facility] Bisoprolol Fumarate 5 MG Oral Tablet 01/11/2024 Prov ider: Diagnosis: Last Documented On 4 8:39AM By Eva Temple ; [facility] Olmesartan Medoxomil 40 MG Oral Tablet 01/11/2024 Pr ovider: Diagnosis: Last Documented On 4 8:39AM By Eva Temple ; [facility] Pravastatin Sodium 40 MG Oral Tablet 01/11/2024 Prov ider: Diagnosis: Last Documented On 4 8:39AM By Eva Temple ; [facility] Trelegy Ellipta 200-62.5-25 MCG/ACT Inhalation Aerosol Powder Breath Activated 01/11/2024 Provider: Diagnosis: Last Documented On 4 8:39AM By Eva Temple ; [facility] Cetirizine HCl 10 MG Oral Tablet 01/07/2024 Provider : Diagnosis: Last Documented On 4 8:39AM By Eva Temple ; [facility] levoFLOXacin 25 MG/ML Oral Solution 12/21/2023 Provi janice: Diagnosis: Last Documented On 4 8:20AM By Sonja Palmer ; [facility] predniSONE 10 MG Oral Tablet 12/21/2023 Provider: Diagnosis: Last Documented On 4 8:21AM By Sonja Palmer ; [facility] cloNIDine HCl 0.1 MG Oral Tablet 12/21/2023 Provider : Diagnosis: Last Documented On 4 8:21AM By Sonja Palmer ; [facility] Doxycycline Hyclate 100 MG Oral Capsule 12/21/2023 P rovider: Diagnosis: Last Documented On 4 8:20AM By Sonja Palmer ; [facility] Medications Administered Includes: Administered Medications from [...] Diagnosis Performing Provider Service Location Service Date INJECTION TRANSFORAMINAL EPI LUMBAR (Bilateral Procedure) 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, lumbosacr region [facility]erto Cleaning [facility] 01/18/2024 Last Documented On 4 11:50AM ; [facility] Triamcinolone/Kenalog, 10mg per cc [id number] Spondyls w/o myelopathy or radiculopathy, lumbosacr region Fil[facility]erto Cleaning [facility] 01/18/2024 Last Documented On 4 11:50AM ; [facility] Medical History Includes: Medical History addressed [...] Active Last Documented On 4 8:39AM ; [facility] Encounters Encounter Provider Location Date Check-In Time Check-Out Time Diagnosis Epidural Steroid Injection Filiberto Cleaning [facility] 01/18/20 24 8:33AM 8:59AM Insurance Includes: Active Insurance Policies Plan Name Member ID Group # Subscriber Relationship Effect mat Dates 1 - [employer] [place] [id number] Efra Davenport 4 - Unknown Clinical Notes Includes: Clinical Notes from this encounter * Progress note Date Encounter Last Documented by 01/18/2024 Epidural Steroid Injection Last documented on 01/20/2024; 2:38 PM, Filiberto Cleaning [employer]; [facility] Plan BILATERAL L5-S1 TRANSFORAMINAL GITA dx: stenosis, radiculopathy Details of the procedure [...]
--- OUTSIDE RECORDS SUMMARY | 2024-04-08 22:58 | XMS_ITS | Clinical Summary ---
Author Name Unknown Address [address] [place] [address] [place] [address] Phone Organization [facility] Address [address] [place] [address] Phone Care Team Providers Care Press Service Reader Name Role Phone Anel VENEGAS, Nuvia Unavailable [phone] Analilia Mayer PA-C Unavailable [phone] Reason for Visit and Chief Complaint The Chief Complaint is: low back pain Problems Includes: Problems addressed during this encounter and other active Problems Current Visit Onset Date Resolved Date Provider Conditio n Status Lower Back Pain 12/21/2023 Nuvia champion MD Active Last Documented On 4 8:50AM ; [facility] Neck Pain 12/21/2023 Nuvia Tam MD Active Last Documented On 4 8:50AM ; [facility] Plan of Treatment Pending Tests Order Diagnosis Results Due Ordering P roder Radiology - MRI MRI Cervical Spine Cervicalgia 01/04/24 Nuvia Tam MD Last Documented On 4 9:46AM ; [facility] Instructions to patient Intervention and counseling on cessation of tobacco use Last Documented On 4 8:29AM ; [facility] Assessments Includes: Assessments from this encounter Findings This is a 68-year-old female with concern for cervical stenosis as well as bilateral foraminal stenosis most pronounced at L5-S1 - Last Documented On 12/21/2023 9:46AM ; [facility] It was nice meeting Bhavana in the [...] bilateral transforaminal epidural steroid injections at L5-S1. - Last Documented On 12/21/2023 9:46AM ; [facility] Fall Risk Assessment: - Last Documented On 12/21/2023 9:46AM ; [facility] This patient has been identified as a fall risk. Balance/gait along with postural blood pressure, vision and home fall hazards have been assessed. Medications have been reviewed, and recommendations made with regard to contributing factors for future falls. - Last Documented On 12/21/2023 9:46AM ; [facility] Plan of care: Consideration of vitamin D supplementation along with balance and strength training with consideration for formal physical therapy has been discussed with the patient. - Last Documented On 12/21/2023 9:46AM ; [facility] Instructions Includes: Instructions from this encounter Instructions to patient Intervention and counseling on cessation of tobacco use Last Documented On 4 8:29AM ; [facility] Medical Equipment - Implanted Devices Includes: Current Devices No Medical Equipment Recorded Medications Includes: Medications discussed during this encounter and other current Medications Discontinued / Stopped on this date on 12/21/2023 Bisoprolol Fumarate 10 MG Oral Tablet Pro vider: Diagnosis: Last Documented On 4 9:27AM By Nuvia Rudolph [facility] Olmesartan Medoxomil 20 MG Oral Tablet Pr ovider: Diagnosis: Last Documented On 4 9:27AM By Nuvia Rudloph [facility] Current Medications (continue as prescribed) amLODIPine Besylate 10 MG Oral Tablet 01/12/2024 Pro vider: Diagnosis: Last Documented On 4 8:39AM By Eva Temple ; [facility] Albuterol Sulfate HFA 108 (9 0 Base) MCG/ACT Inhalation Aerosol Solution 01/11/2024 Provider: Diagnosis: Last Documented On 4 8:39AM By Eva Rudolph [facility] Aspirin Low Dose 81 MG Oral Tablet Delayed Release 09/2024 Provider: Diagnosis: Last Documented On 4 8:39AM By Eva Temple ; [facility] Bisoprolol Fumarate 5 MG Oral Tablet 01/11/2024 Prov ider: Diagnosis: Last Documented On 4 8:39AM By Eva Temple ; [facility] Olmesartan Medoxomil 40 MG Oral Tablet 01/11/2024 Pr ovider: Diagnosis: Last Documented On 4 8:39AM By Eva Temple ; [facility] Pravastatin Sodium 40 MG Oral Tablet 01/11/2024 Prov ider: Diagnosis: Last Documented On 4 8:39AM By Eva Temple ; [facility] Trelegy Ellipta 200-62.5-25 MCG/ACT Inhalation Aerosol Powder Breath Activated 01/11/2024 Provider: Diagnosis: Last Documented On 4 8:39AM By Eva Temple ; [facility] Cetirizine HCl 10 MG Oral Tablet 01/07/2024 Provider : Diagnosis: Last Documented On 4 8:39AM By Eva Temple ; [facility] levoFLOXacin 25 MG/ML Oral Solution 12/21/2023 Provi janice: Diagnosis: Last Documented On 4 8:20AM By Sonja Rudolph [facility] predniSONE 10 MG Oral Tablet 12/21/2023 Provider: Diagnosis: Last Documented On 4 8:21AM By Sonja Rudolph [facility] cloNIDine HCl 0.1 MG Oral Tablet 12/21/2023 Provider : Diagnosis: Last Documented On 4 8:21AM By Sonja Palmer ; [facility] Doxycycline Hyclate 100 MG Oral Capsule 12/21/2023 P rovider: Diagnosis: Last Documented On 4 8:20AM By Sonja Palmer ; [facility] Medications Administered Includes: Administered Medications from this encounter No Administered Medications Recorded Vital Signs Includes: Vital Signs from this encounter Vital Name 12/21/2023 08:24A Height (in) 65 Weight (lb) 166 Body Mass Index 27.6 Body Surface Area 1.8 Note: lms Last Documented: On 12/21/2023 8:24AM ; [facility] Results Includes: Results discussed during this encounter [...] In fact, she is technically new to [facility]. I believe she has been following with Dr. Harp in pain management. She would also seeing an orthopedic spine provide her in [facility] several years ago. She is here [...] but does not take a blood thinner. Social History Description Last Updated Tobacco use 12/21/2023 Last Documented On 4 9:46AM ; [facility] Alcohol use 12/21/2023 Last Documented On 4 9:46AM ; [facility] Caffeine use 12/21/2023 Last Documented On 4 9:46AM ; [facility] No recent change in diet 12/21/2023 Last Documented On 4 9:46AM ; [facility] Not exercising regularly 12/21/2023 Last Documented On 4 9:46AM ; [facility] Not using drugs 12/21/2023 Last Documented On 4 9:46AM ; [facility] Yes, current smoker. 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 4000F Last Documented On 4 8:29AM ; [facility] use of tobacco assessment performed 1000F Last Documented On 4 8:29AM ; [facility] review of medications documented 1160F Last Documented On 4 8:29AM ; [facility] an X-ray was performed 09/03 [facility] ~09/03/2023 LSpine ~12/21/20[place] [id number] Last Documented On 4 9:46AM ; [facility] an MRI was performed 10/28/2023 LSpine @ [facility] [id number] Last Documented On 4 9:46AM ; [facility] Surgical History Last Updated History of History of Gallbladder 2023 Last Documented On 4 9:46AM ; [facility] History of hysterectomy 12/21/2023 Last Documented On 4 9:46AM ; [facility] Medical History Includes: Medical History addressed during this encounter Description Last Updated History of Anemia 12/21/2023 Last Documented On 4 9:46AM ; [facility] History of heart disease 12/21/2023 Last Documented On 4 9:46AM ; [facility] History of Hypertension 12/21/2023 Last Documented On 4 9:46AM ; [facility] Family History Includes: Family History addressed during this encounter Description Last Updated Family history of cancer 12/21/2023 Last Documented On 4 9:46AM ; [facility] Family history of heart disease 12/21/19 24 Last Documented On 4 9:46AM ; [facility] Review of Systems Includes: Review of [...] Location Date Check-In Time Check-Out Time Diagnosis Physician Specified Nuvia champion MD [facility]21[facility]19 24 8:08AM 8:50AM Insurance Includes: Active Insurance Policies Plan Name Member ID Group # Subscriber Relationship Effect mat Dates 1 - [facility] [place] [id number] Efra Davenport A 4 - Unknown Clinical Notes Includes: Clinical Notes from this encounter * Progress note Date Encounter Last Documented by 12/21/2023 Physician Specified Last aleidacarlos simpson on 12/21/2023; 9:46 AM, Nuvia Tam MD; [facility] Active Problems & Conditions - [...] In fact, she is technically new to [facility]. I believe she has been following with Dr. Harp in pain management. She would also seeing an orthopedic spine provide her in [facility] several years ago. She is here [...] [facility] Joints 09/03/2023 LSpine 12/21/2023 Neck @ [facility]. MRI Scan: An MRI was performed 10/28/2023 [facility] @ [facility]. Therapy - Intervention and counseling on cessation of tobacco use. Plan StartCited - Cervicalgia Radiology/MRI: MRI Cervical Spine EndCited Practice Management Use of tobacco assessment performed Review of medications documented. Care Team - Analilia Mayer PA-C Notes This dictation was done with voice recognition software and may contain errors and omissions.
--- NOTE | 2024-04-08 23:12 | PC.NURSE ---
RESP CARE NOTE: Pt sputum sent down to the lab at [id number]
[2024-04-08] MEDS: IPRATROPIUM/ALBUTEROL 3 ML NEB IH (23:41)
[2024-04-08 23:50] LABS: Troponin I < 0.01 ng/ml (0.00-0.034)
--- NOTE | 2024-04-08 23:50 | PC.NURSE ---
Patient arrived to floor via stretcher from ED at 20:57.
[2024-04-09 02:48] LABS: Troponin I < 0.01 ng/ml (0.00-0.034)
[2024-04-09 04:00] VITALS: BP 116/64; PULSE 66; RESP 17; TEMP 36.6; O2SAT 94; BMI 27.1
[2024-04-09] MEDS: IPRATROPIUM/ALBUTEROL 3 ML NEB IH ×2 (06:14→11:08)
[2024-04-09 06:15] VITALS: PULSE 73; PULSE 78; O2SAT 95
--- NOTE | 2024-04-09 06:16 | PC.NURSE ---
pt A&OX4, ambulates to and from bathroom with standby assistance, tolerating 1L of O2 with sats 94%, no c/o pain, call button is in reach
[2024-04-09 07:15] LABS: Chloride 106 mmol/L (98-107); Potassium 3.9 mmoL/L (3.5-5.1); Sodium 138 mmol/L (136-145)
[2024-04-09 07:16] LABS: Basophils # 0.1 K/mm3 (0-0.2); Basophils % 0.5 % (0.1-2.0); Eosinophils % 0.1 % (0.1-12.0); Hematocrit 41.6 % (37.0-47.0); Hemoglobin 13.5 g/dL (12.2-16.2); Lymphocytes # 1.2 K/mm3 (0.7-4.5); Lymphocytes % 12.6 % (10-50); Mean Corpuscular HGB Conc 32.4 g/dL (31.8-35.4); Mean Corpuscular Volume 101.9 fl (81-99); Mean Platelet Volume 8.3 fl (7.4-10.4); Monocytes # 0.1 K/mm3 (0.1-1.0); Monocytes % 1.2 % (1.7-9.3); Neutrophils # 8.4 K/mm3 (1.8-7.8); Neutrophils % 85.6 % (37.0-80.0); Platelet Count 399 K/mm3 (142-424); Red Blood Count 4.08 M/mm3 (4.20-5.40); Red Cell Distribution Width 13.5 % (11.5-17.5); White Blood Count 9.8 K/mm3 (4.8-10.8)
[2024-04-09 07:18] LABS: Alanine Aminotransferase 46 U/L (12-78); Albumin Level 4.4 g/dl (3.5-5.0); Albumin/Globulin Ratio 1.7 (1.1-1.8); Alkaline Phosphatase 87 U/L (38-126); Anion Gap 13.9 mEq/L (5-15); Aspartate Amino Transferase 41 U/L (14-36); Bilirubin,Total 0.3 mg/dl (0.2-1.3); Blood Urea Nitrogen 12 mg/dl (7-17); Calcium 9.7 mg/dl (8.4-10.2); Carbon Dioxide 22 mmol/L (22.0-30.0); Creatinine Clearance Estimated 63 mL/min (50-200); Estimated Glomerular Filt Rate 99 ml/min (>60); GFR (African American) 120 ML/MIN (>60); Globulin 2.6 g/dL (1.3-3.2); Glucose 164 mg/dl (74-100); Magnesium 1.7 mg/dl (1.6-2.3)
[2024-04-09 07:19] LABS: MANUAL DIFFERENTIAL MANUAL DIFFERENTIAL (MANUAL DIFF)
[2024-04-09 08:00] VITALS: BP 137/70; PULSE 79; RESP 16; TEMP 36.9; O2SAT 96
[2024-04-09 08:33] LABS: Lymphocytes % 8 % (10-50); Monocytes % 1 % (2-9); Neutrophils % 91 % (42-76); Total Cells Counted 100
[2024-04-09 08:35] LABS: Anisocytosis 1+; Macrocytosis 1+; Platelet Estimate Normal
--- NOTE | 2024-04-09 08:51 | EXP.DC.SUM ---
General Admission date:: 04/08/24 Discharge date: 04/09/24 HPI HPI HPI: This is a 68-year-old female PMHx of COPD on home oxygen as needed, TALBI, heavy daily tobacco use, hypertension, and hyperlipidemia presenting to the emergency department for evaluation with concern for shortness of breath that has been worsening over the last couple months. Today started feeling out breath a few hours ago. She states she is been doing her breathing treatments and inhalers at home, but she feels like she cannot get air at all. She has had a cough and has been using [id number] cough medication for 2 days. She notes increased sputum production. No fevers, chest pain, vomiting, or other concerns. She does note that she has had some mild leg swelling. No history of blood clots or clotting disorders. She was seen by her primary care provider 04/04 and had an x-ray done as well as labs, which demonstrated persistent chronic leukocytosis but no acute cardiopulmonary issues, medical record review. Admitted for further treatment and mangement. Hospital Course Hospital Course Hospital Course: 68-year-old female PMHx of COPD on home oxygen as needed, TALIB, heavy daily tobacco use, hypertension, and hyperlipidemia presenting to the emergency department for evaluation with concern for shortness of breath that has been worsening over the last couple months. Labs were obtained that demonstrated leukocytosis and mildly elevated D-dimer. CT PE protocol was ordered which did not show any PE, but patient does have findings concerning for pneumonia. Patient admitted due to continued desaturations. Feeling better by morning. Weaned to room air with O2 sats in the 90s. Room air saturation of 96% on morning of discharge. Stable to discharge home with continued treatment as an outpatient for her exacerbation. Problems addressed as follows: Acute on chronic hypoxic respiratory failure Secondary to COPD exacerbation and pneumonia Admitted due to respiratory failure. Able to wean off oxygen by morning. Started on ceftriaxone and azithromycin with transition to doxycycline after admission. Will continue doxycycline to complete 5 days of 100 mg twice daily. Continue steroids, transition to prednisone 40 mg oral daily for 5 days. Continue nebulizer and breathing treatments at home. Resume Trelegy inhaler. Needs to follow-up with pulmonology as she has not seen pulmonology in quite some time. Patient does have moderate COPD on review of PFT. Counseled on smoking cessation benefits. History of hypertension sleep apnea: Would benefit from outpatient sleep study and consideration for CPAP. Continue home regimen for hypertension. Tobacco use: Educated in smoke cessation. Spent more than 15 minutes advised smoking cessation strategies. Patient did try to stop previously Total time spent on discharge 32 minutes in counseling, documentation, chart review, and direct care with patient. Exam Data for Last 24 hours Vital signs and Labs for Last 24 Hours: Temp Pulse Resp BP Pulse Ox O2 Del Method O2 Flow Rate 98.5 F 79 16 137/70 96 Room Air 1 04/09/24 08:00 04/09/24 08:00 04/09/24 08:00 04/09/24 08:00 04/09/24 08:00 04/09/24 08:00 04/09/24 06:46 Laboratory Results - last 24 hr 04/08/24 19:32: WBC 13.9 H, RBC 4.09 L, Hgb 14.0, Hct 41.3, MCV 100.8 H, MCH 34.2 H, MCHC 34.0, RDW 13.5, Plt Count 409, MPV 8.5, Neut % (Auto) 52.9, Lymph % (Auto) 28.0, Dickenson % (Auto) 6.5, Eos % (Auto) 10.8, Baso % (Auto) 1.8, Neut # (Auto) 7.3, Lymph # (Auto) 3.9, Dickenson # (Auto) 0.9, Eos # (Auto) 1.5 H, Baso # (Auto) 0.3 H, D-Dimer 0.61 H 04/08/24 20:01: VBG pH 7.38, VBG pCO2 43.6, VBG pO2 33.2, VBG HCO3 25.0, VBG Total CO2 26.3, VBG O2 Saturation 68.8, VBG Base Excess -0.2, VBG Lactic Acid 2.0 04/08/24 20:24: SARS-CoV-2 (PCR) Not detected, Influenza A Untype (PCR) Not detected, Influenza Type B (PCR) Not detected 04/08/24 23:25: Troponin I < 0.01 04/08/24 : Sodium 141, Potassium 3.6, Chloride 100, Carbon Dioxide 29, Anion Gap 15.6 H, BUN 13, Creatinine 0.80, Estimated Creat Clear 62, Estimated GFR 71, Est GFR ( Amer) 86, Glucose 99, Calcium 10.1, Total Bilirubin 0.4, AST 48 H, ALT 40, Alkaline Phosphatase 96, Troponin I < 0.01, NT-Pro-B Natriuret Pep 559 H, Total Protein 7.6, Albumin 4.6, Globulin 3.0, Albumin/Globulin Ratio 1.5 04/09/24 02:10: Troponin I < 0.01 04/09/24 06:41: WBC 9.8 D, RBC 4.08 L, Hgb 13.5, Hct 41.6, MCV 101.9 H, MCH 33.0 H, MCHC 32.4, RDW 13.5, Plt Count 399, MPV 8.3, Neut % (Auto) 85.6 H, Lymph % (Auto) 12.6, Dickenson % (Auto) 1.2 L, Eos % (Auto) 0.1, Baso % (Auto) 0.5, Neut # (Auto) 8.4 H, Lymph # (Auto) 1.2, Dickenson # (Auto) 0.1, Eos # (Auto) 0.0, Baso # (Auto) 0.1, Total Counted 100, Neutrophils % (Manual) 91 H, Lymphocytes % (Manual) 8 L, Monocytes % (Manual) 1 L, Platelet Estimate Normal, Anisocytosis 1+, Macrocytosis 1+, Sodium 138, Potassium 3.9, Chloride 106, Carbon Dioxide 22, Anion Gap 13.9, BUN 12, Creatinine 0.60 D, Estimated Creat Clear 63, Estimated GFR 99, Est GFR ( Amer) 120 D, Glucose 164 H D, Calcium 9.7, Magnesium 1.7, Total Bilirubin 0.3, AST 41 H, ALT 46, Alkaline Phosphatase 87, Total Protein 7.0, Albumin 4.4, Globulin 2.6, Albumin/Globulin Ratio 1.7 I & O for Last 24 hours: Intake & Output 04/06/24 04/07/24 04/08/24 04/09/24 23:59 23:59 23:59 23:59 Intake Total 240 / 240 Output Total 0 / 0 Balance 240 / 240 Weight 73.981 kg 73.981 kg Constitutional Constitutional: no acute distress and chronically ill appearing *Routine HEENT Exam Head: Present normocephalic Eye: Present EOMI and PERRL ENT: Present mucous membranes moist *Routine Neck Exam Neck: Present supple; Absent lymphadenopathy *Routine Respiratory Exam Respiratory: Present prolonged expiratory phase, wheezes and normal respiratory effort; Absent rhonchi or crackles *Routine Cardiovascular Exam Cardiovascular: Present RRR *Routine Abdominal Exam Abdominal: Present soft and normoactive bowel sounds; Absent tenderness *Routine Rectal Exam Patient deferred: visual exam *Routine Exam Patient deferred: external exam *Routine Extremities Exam Extremities: Absent cyanosis, clubbing or edema *Routine Skin Exam Skin: Present warm; Absent rash *Routine Neurological Exam Neurological: Present alert, oriented X3 and moving all extremities; Absent altered mental status Results Data Completed and Pending Labs on day of discharge: Labs from last 24 hours 04/09/24 04/09/24 04/08/24 06:41 02:10 Unknown WBC 9.8 D RBC 4.08 L Hgb 13.5 Hct 41.6 MCV 101.9 H MCH 33.0 H MCHC 32.4 RDW 13.5 Plt Count 399 MPV 8.3 Neut % (Auto) 85.6 H Lymph % (Auto) 12.6 Dickenson % (Auto) 1.2 L Eos % (Auto) 0.1 Baso % (Auto) 0.5 Neut # (Auto) 8.4 H Lymph # (Auto) 1.2 Dickenson # (Auto) 0.1 Eos # (Auto) 0.0 Baso # (Auto) 0.1 Total Counted 100 Neutrophils % (Manual) 91 H Lymphocytes % (Manual) 8 L Monocytes % (Manual) 1 L Platelet Estimate Normal Anisocytosis 1+ Macrocytosis 1+ D-Dimer VBG pH VBG pCO2 VBG pO2 VBG HCO3 VBG Total CO2 VBG O2 Saturation VBG Base Excess VBG Lactic Acid Sodium 138 141 Potassium 3.9 3.6 Chloride 106 100 Carbon Dioxide 22 29 Anion Gap 13.9 15.6 H BUN 12 13 Creatinine 0.60 D 0.80 Estimated Creat Clear 63 62 Estimated GFR 99 71 Est GFR ( Amer) 120 D 86 Glucose 164 H D 99 Calcium 9.7 10.1 Magnesium 1.7 Total Bilirubin 0.3 0.4 AST 41 H 48 H ALT 46 40 Alkaline Phosphatase 87 96 Troponin I < 0.01 < 0.01 NT-Pro-B Natriuret Pep 559 H Total Protein 7.0 7.6 Albumin 4.4 4.6 Globulin 2.6 3.0 Albumin/Globulin Ratio 1.7 1.5 SARS-CoV-2 (PCR) Influenza A Untype (PCR) Influenza Type B (PCR) 04/08/24 04/08/24 04/08/24 23:25 20:24 20:01 WBC RBC Hgb Hct MCV MCH MCHC RDW Plt Count MPV Neut % (Auto) Lymph % (Auto) Dickenson % (Auto) Eos % (Auto) Baso % (Auto) Neut # (Auto) Lymph # (Auto) Dickenson # (Auto) Eos # (Auto) Baso # (Auto) Total Counted Neutrophils % (Manual) Lymphocytes % (Manual) Monocytes % (Manual) Platelet Estimate Anisocytosis Macrocytosis D-Dimer VBG pH 7.38 VBG pCO2 43.6 VBG pO2 33.2 VBG HCO3 25.0 VBG Total CO2 26.3 VBG O2 Saturation 68.8 VBG Base Excess -0.2 VBG Lactic Acid 2.0 Sodium Potassium Chloride Carbon Dioxide Anion Gap BUN Creatinine Estimated Creat Clear Estimated GFR Est GFR ( Amer) Glucose Calcium Magnesium Total Bilirubin AST ALT Alkaline Phosphatase Troponin I < 0.01 NT-Pro-B Natriuret Pep Total Protein Albumin Globulin Albumin/Globulin Ratio SARS-CoV-2 (PCR) Not detected Influenza A Untype (PCR) Not detected Influenza Type B (PCR) Not detected 04/08/24 19:32 WBC 13.9 H RBC 4.09 L Hgb 14.0 Hct 41.3 MCV 100.8 H MCH 34.2 H MCHC 34.0 RDW 13.5 Plt Count 409 MPV 8.5 Neut % (Auto) 52.9 Lymph % (Auto) 28.0 Dickenson % (Auto) 6.5 Eos % (Auto) 10.8 Baso % (Auto) 1.8 Neut # (Auto) 7.3 Lymph # (Auto) 3.9 Dickenson # (Auto) 0.9 Eos # (Auto) 1.5 H Baso # (Auto) 0.3 H Total Counted Neutrophils % (Manual) Lymphocytes % (Manual) Monocytes % (Manual) Platelet Estimate Anisocytosis Macrocytosis D-Dimer 0.61 H VBG pH VBG pCO2 VBG pO2 VBG HCO3 VBG Total CO2 VBG O2 Saturation VBG Base Excess VBG Lactic Acid Sodium Potassium Chloride Carbon Dioxide Anion Gap BUN Creatinine Estimated Creat Clear Estimated GFR Est GFR ( Amer) Glucose Calcium Magnesium Total Bilirubin AST ALT Alkaline Phosphatase Troponin I NT-Pro-B Natriuret Pep Total Protein Albumin Globulin Albumin/Globulin Ratio SARS-CoV-2 (PCR) Influenza A Untype (PCR) Influenza Type B (PCR) DS: Diagnosis Discharge Diagnosis (1) Acute hypoxic respiratory failure: Status: Acute Code(s): J96.01 - Acute respiratory failure with hypoxia (2) Acute exacerbation of chronic obstructive pulmonary disease: Status: Acute Code(s): J44.1 - Chronic obstructive pulmonary disease with (acute) exacerbation (3) Pneumonia: Status: Acute Code(s): J18.9 - Pneumonia, unspecified organism Qualifiers: Laterality: right Lung location: upper lobe of lung Pneumonia type: due to unspecified organism Qualified Code(s): J18.9 - Pneumonia, unspecified organism (4) Hypertension: Status: Chronic Code(s): I10 - Essential (primary) hypertension Qualifiers: Hypertension type: essential hypertension Qualified Code(s): I10 - Essential (primary) hypertension (5) TALIB (obstructive sleep apnea): Status: Chronic Code(s): G47.33 - Obstructive sleep apnea (adult) (pediatric) (6) Tobacco abuse: Status: Chronic Code(s): Z72.0 - Tobacco use Meds Home Medications and Allergies Home Medications Medication Instructions Recorded Confirmed Type ibuprofen 600 mg tablet 600 mg PO Q6HP PRN Moderate Pain 08/06/23 04/08/24 Rx #20 tabs albuterol sulfate 1.25 mg/3 mL 1.25 mg (3 mL) inhalation QID PRN 01/11/24 04/08/24 Rx solution for nebulization shortness of breath or wheezing #90 mL albuterol sulfate 90 mcg/actuation 2 inh inhalation QID PRN shortness 01/11/24 04/08/24 Rx aerosol inhaler of breath or wheezing 90 days #8.5 grams aspirin 81 mg tablet,delayed 81 mg PO DAILY #90 tabs 01/11/24 04/08/24 Rx release bisoprolol fumarate 5 mg tablet 5 mg PO BID BLOOD PRESSURE #180 01/11/24 04/08/24 Rx tabs fluticasone fur. 200 mcg-umeclid 1 inh inhalation DAILY COPD #90 ea 01/11/24 04/08/24 Rx 62.5 mcg-vilant 25 mcg inhalat.powder (Trelegy Ellipta) olmesartan 40 mg tablet 40 mg PO DAILY BP #90 tabs 01/11/24 04/08/24 Rx pravastatin 40 mg tablet 40 mg PO HS . #90 tabs 01/11/24 04/08/24 Rx amlodipine 10 mg tablet 10 mg PO DAILY #90 tabs 01/12/24 04/08/24 Rx mirtazapine 15 mg tablet (Remeron) 15 mg PO HS #90 tabs 03/29/24 04/08/24 Rx cholecalciferol (vitamin D3) 1,250 1,250 mcg PO WEEKLY #5 tabs 04/04/24 04/08/24 Rx mcg (50,000 unit) tablet hydrochlorothiazide 25 mg tablet 12.5 mg PO DAILY 04/08/24 History doxycycline hyclate 100 mg tablet 100 mg PO BID 5 days #10 tabs 04/09/24 Rx nicotine 21 mg/24 hr daily 21 mg transdermal DAILYP PRN 04/09/24 Rx transdermal patch Nicotine Cravings #28 ea prednisone 20 mg tablet 40 mg (2 x 20 mg) PO DAILY 4 days 04/09/24 Rx #8 tabs New Prescriptions to Start Prescriptions: doxycycline hyclate David Villavicencio nicotine Maye,David prednisone David Villavicencio Allergies Allergy/AdvReac Type Severity Reaction Status Date / Time acetaminophen [From Tylenol] Allergy Verified 03/29/24 10:10 clarithromycin [From Biaxin] Allergy Verified 03/29/24 10:10 Sulfa (Sulfonamide Allergy Verified 03/29/24 10:10 Antibiotics) levofloxacin AdvReac Intermediate difficulty Verified 03/29/24 10:10 urinating tramadol AdvReac Intermediate Vomiting Verified 03/29/24 10:10 Discharge Plan Disposition Patient Disposition: Home, Self-Care Condition: Good Follow up Plan Follow up with: Analilia Mayer PA [Primary Care Provider] - Enter time for follow up (Please call Thursday , April 11, 2024 to schedule your follow up appointment with your primary care provider.) Nitish Yan MD [Physician] - Enter time for follow up (Please call Thursday, April 11, 2024 to schedule a follow up appoinment with your Pulmonology doctor.) Prescriptions/Medication Reconciliation: New nicotine 21 mg/24 hr Patch 24 Hour 21 mg transdermal DAILYP PRN (Reason: Nicotine Cravings) Qty: 28 2RF doxycycline hyclate 100 mg Tablet 100 mg PO BID 5 Days Qty: 10 0RF prednisone 20 mg tablet 40 mg PO DAILY 4 Days Qty: 8 0RF Continued albuterol sulfate 90 mcg/actuation HFA aerosol inhaler 2 inh inhalation QID PRN (Reason: shortness of breath or wheezing) 90 Days Qty: 8.5 2RF albuterol sulfate 1.25 mg/3 mL solution for nebulization 1.25 mg inhalation QID PRN (Reason: shortness of breath or wheezing) Qty: 90 3RF aspirin 81 mg tablet,delayed release (DR/EC) 81 mg PO DAILY Qty: 90 3RF bisoprolol fumarate 5 mg tablet 5 mg PO BID Qty: 180 3RF Rx Instructions: TAke one tab twice daily Trelegy Ellipta 200-62.5-25 mcg blister with device 1 inh inhalation DAILY Qty: 90 3RF pravastatin 40 mg tablet 40 mg PO HS Qty: 90 3RF olmesartan 40 mg tablet 40 mg PO DAILY Qty: 90 3RF mirtazapine [Remeron] 15 mg tablet 15 mg PO HS Qty: 90 1RF amlodipine 10 mg tablet 10 mg PO DAILY Qty: 90 3RF cholecalciferol (vitamin D3) 1,250 mcg (50,000 unit) tablet 1,250 mcg PO WEEKLY Qty: 5 0RF ibuprofen 600 mg tablet 600 mg PO Q6HP PRN (Reason: Moderate Pain) Qty: 20 0RF hydrochlorothiazide 25 mg tablet 12.5 mg PO DAILY Problem Reconciliation Problems Reviewed?: Yes Patient Discharge Instructions ACTIVITY: Continue current activity DIET: continue same diet Patient Instructions: DI for Shortness of Breath Providers Primary Care Provider: Analilia Mayer Admit Provider: David Villavicencio Attending Provider: David Villavicencio
[2024-04-09] MEDS: DOXYCYCLINE HYCL 100 MG TABLET PO (09:29)
[2024-04-09] MEDS: NICOTINE 21MG/24HR PATCH 21 MG TD (09:29)
[2024-04-09] MEDS: PANTOPRAZOLE 40MG TABLET 40 MG PO (09:29)
[2024-04-09] MEDS: DOCUSATE SODIUM 100 MG CAPSULE PO (09:29)
[2024-04-09] MEDS: DEXAMETHASONE 4MG/ML 1ML VIAL 6 MG IV (09:29)
[2024-04-09 11:09] VITALS: PULSE 79; PULSE 83; O2SAT 96
--- NOTE | 2024-04-11 14:05 | CARE MANAGER ---
Contacted patient related to hospital discharge. She states she is tired, but she has made her follow up appointment with PCP. She is going to call later for pulmonology. She denies any other questions or concerns and has her medications. NENA Rosenthal
== END 2024-04-09 11:23 | disposition home or self-care (01) ==
LOC: ER 22:04 → 2ND 22:40
PROVIDERS: Nurse Practitioner Family; Admitting Provider Internal Medicine Adolescent Medicine; Emergency Provider Emergency Medicine; PCP Physician Assistant; Visit Provider Internal Medicine Adolescent Medicine
DX: J96.21 Acute and chronic respiratory failure with hypoxia (principal); J44.1 Chronic obstructive pulmonary disease with (acute) exacerbation; J18.9 Pneumonia, unspecified organism; I10 Essential (primary) hypertension; G47.33 Obstructive sleep apnea (adult) (pediatric); F17.210 Nicotine dependence, cigarettes, uncomplicated; Z79.899 Other long term (current) drug therapy; Z99.81 Dependence on supplemental oxygen; R06.02 Shortness of breath
CPT/HCPCS: 36415; 71045; 71275; 80053; 82803; 83735; 83880; 84484; 85007; 85025; 85378; 87070; 87205; 87636; 93005; 94640; 99285; G0378; J0456; J0696; J1100; J1650; J7620; Q9967

== ENCOUNTER 2024-04-28 09:21 | Outpatient (CLI) | payer BC, SELFPAY | END 2024-04-28 23:59 | disposition home or self-care (01) | PROVIDERS: PCP Physician Assistant; Visit Provider Internal Medicine Pulmonary Disease | DX: J43.9 Emphysema, unspecified (principal); F17.210 Nicotine dependence, cigarettes, uncomplicated | CPT/HCPCS: 94762 ==

== ENCOUNTER 2024-05-07 09:34 | Emergency (ER) | payer BC, SELFPAY ==
[2024-05-07 09:45] VITALS: BP 146/72; PULSE 63; RESP 18; TEMP 36.4; O2SAT 97; BMI 26.9
--- NOTE | 2024-05-07 09:54 | XR_ITS ---
PROCEDURE INFORMATION: Exam: XR Chest Exam date and time: 05/07/2024 10:00 AM Age: 68 years old Clinical indication: Cough TECHNIQUE: Imaging protocol: Radiologic exam of the chest. Views: 2 views. COMPARISON: CT ANGIO CHEST PE PROTOCOL 04/08/2024 8:56 PM FINDINGS: Lungs: Opacity along the left heart border is similar to epicardial fat on recent CT scan. No other airspace consolidation or nodules. Pleural spaces: No pleural effusion. No pneumothorax. Heart/Mediastinum: No cardiomegaly. No vascular congestion. Bones/joints: No fractures or bone lesions. IMPRESSION: Opacity along the left heart border may simply be epicardial fat. Consider pneumonia in the proper clinical setting.
--- NOTE | 2024-05-07 10:04 | ED_ITS ---
Discharge Plan Disposition Patient Disposition: Home, Self-Care Condition: Good Prescriptions Prescriptions: New prednisone 10 mg tablet 10 mg PO DIRECTED 9 Days Qty: 21 0RF Rx Instructions: Take 4 tablets daily for 3 days, then take 2 tablets daily for 3 days, then take 1 tablet daily for 3 days, then stop. doxycycline hyclate 100 mg capsule 100 mg PO Q12 10 Days Qty: 20 0RF amoxicillin 875 mg tablet 875 mg PO Q12H Qty: 20 0RF benzonatate 100 mg capsule 100 mg PO TIDP PRN (Reason: Cough) Qty: 30 0RF guaifenesin [Mucinex] 600 mg tablet extended release 12hr 600 - 1,200 mg PO BIDP PRN (Reason: Congestion) Qty: 30 0RF No Action bisoprolol fumarate 5 mg tablet 5 mg PO DAILY Rx Instructions: TAke one tab twice daily albuterol sulfate 90 mcg/actuation HFA aerosol inhaler 2 inh inhalation QID PRN (Reason: shortness of breath or wheezing) 90 Days Qty: 8.5 2RF albuterol sulfate 1.25 mg/3 mL solution for nebulization 1.25 mg inhalation QID PRN (Reason: shortness of breath or wheezing) Qty: 90 3RF aspirin 81 mg tablet,delayed release (DR/EC) 81 mg PO DAILY Qty: 90 3RF Trelegy Ellipta 200-62.5-25 mcg blister with device 1 inh inhalation DAILY Qty: 90 3RF pravastatin 40 mg tablet 40 mg PO HS Qty: 90 3RF olmesartan 40 mg tablet 40 mg PO DAILY Qty: 90 3RF mirtazapine [Remeron] 15 mg tablet 15 mg PO HS Qty: 90 1RF amlodipine 10 mg tablet 10 mg PO DAILY Qty: 90 3RF cholecalciferol (vitamin D3) 1,250 mcg (50,000 unit) tablet 1,250 mcg PO WEEKLY Qty: 5 0RF hydrochlorothiazide 25 mg tablet See Rx Instructions .ROUTE .COMPLEX Qty: 90 3RF Dose Instruction: Take 1 tablet by mouth once daily Rx Instructions: Take 1 tablet by mouth once daily nicotine 21 mg/24 hr Patch 24 Hour 21 mg transdermal DAILYP PRN (Reason: Nicotine Cravings) Qty: 28 2RF Linzess 145 mcg capsule 145 mcg PO DAILY Patient Comments: TAKE ONE CAPSULE BY MOUTH EVERY DAY Referrals Follow up/Referrals: Analilia Mayer PA [Primary Care Provider] - See instructions Activity Restrictions/Add. Instructions Additional Instructions/Restrictions: Drink plenty of fluids. Take tylenol or ibuprofen for pain or fever. Take the medications as directed. Follow up with your regular doctor. GO TO THE ER FOR ANY WORSENING SYMPTOMS Clinical Impressions Clinical Impression: COPD exacerbation Instructions Patient Instructions: Chronic Obstructive Pulmonary Disease Discharge ED Provider: David Gage [facility] General Stated complaint: cough, bodyaches, soa Mode of Arrival: Ambulatory Source of Information: Patient Limitations: No Limitations Time Seen by Provider: 05/07/24 10:04 Description of Symptoms (Recalled from Triage Doc. by RN): Pt's symptoms are coughing. HEENT Symptoms (Recalled from RN notes): Yes Resp Symptoms (Recalled from RN notes): Yes Skin Symptoms (Recalled from RN notes): No MS Symptoms (Recalled from RN notes): No Functional Status (Recalled from RN notes): n/a Related Data Home Medications Medication Instructions Recorded Confirmed bisoprolol fumarate 5 mg tablet 5 mg PO DAILY BLOOD PRESSURE 04/12/24 05/07/24 linaclotide 145 mcg capsule 145 mcg PO DAILY 05/07/24 05/07/24 (Linzess) Previous Rx's Medication Instructions Recorded albuterol sulfate 1.25 mg/3 mL 1.25 mg (3 mL) inhalation QID PRN 01/11/24 solution for nebulization shortness of breath or wheezing #90 mL albuterol sulfate 90 mcg/actuation 2 inh inhalation QID PRN shortness 01/11/24 aerosol inhaler of breath or wheezing 90 days #8.5 grams aspirin 81 mg tablet,delayed 81 mg PO DAILY #90 tabs 01/11/24 release fluticasone fur. 200 mcg-umeclid 1 inh inhalation DAILY COPD #90 ea 01/11/24 62.5 mcg-vilant 25 mcg inhalat.powder (Trelegy Ellipta) olmesartan 40 mg tablet 40 mg PO DAILY BP #90 tabs 01/11/24 pravastatin 40 mg tablet 40 mg PO HS . #90 tabs 01/11/24 amlodipine 10 mg tablet 10 mg PO DAILY #90 tabs 01/12/24 mirtazapine 15 mg tablet (Remeron) 15 mg PO HS #90 tabs 03/29/24 cholecalciferol (vitamin D3) 1,250 1,250 mcg PO WEEKLY #5 tabs 04/04/24 mcg (50,000 unit) tablet nicotine 21 mg/24 hr daily 21 mg transdermal DAILYP PRN 04/09/24 transdermal patch Nicotine Cravings #28 ea hydrochlorothiazide 25 mg tablet See Rx Instructions .Route 04/25/24 .COMPLEX #90 tabs amoxicillin 875 mg tablet 875 mg PO Q12H #20 tabs 05/07/24 benzonatate 100 mg capsule 100 mg PO TIDP PRN Cough #30 caps 05/07/24 doxycycline hyclate 100 mg capsule 100 mg PO Q12 10 days #20 caps 05/07/24 guaifenesin 600 mg tablet, 600 - 1,200 mg (1 - 2 x 600 mg) PO 05/07/24 extended release 12 hr (Mucinex) BIDP PRN Congestion #30 tabs prednisone 10 mg tablet 10 mg PO DIRECTED 9 days #21 05/07/24 tabs Allergies Allergy/AdvReac Type Severity Reaction Status Date / Time acetaminophen [From Tylenol] Allergy Verified 05/07/24 09:57 clarithromycin [From Biaxin] Allergy Verified 05/07/24 09:57 Sulfa (Sulfonamide Allergy Verified 05/07/24 09:57 Antibiotics) levofloxacin AdvReac Intermediate difficulty Verified 05/07/24 09:57 urinating tramadol AdvReac Intermediate Vomiting Verified 05/07/24 09:57 Worker's Comp Is this a Worker's Comp case?: No [facility] Disclaimer: The information contained in this section may have been updated after the patient was seen, as this information can be updated by other users. 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 Surgical History History of laparoscopic cholecystectomy History of hysterectomy Family History Sister Lung cancer Brother Lung cancer Other Cancer Family history of DVT Family history of diabetes mellitus type II Family history of stroke Social History Smoking Status: Current every day smoker tobacco type: cigarettes packs per day: 1 alcohol intake: current alcohol intake frequency: 3 or more drinks per day substance use type: denies use current occupational status: retired Travel in the last 8 weeks: None household members: spouse housing: house caffeine: Yes ROS Obtained: Yes All systems reviewed & no additional complaints except as documented Constitutional Constitutional: Reports poor appetite Eyes Eyes: Reports system reviewed and no additional complaints, except as documented ENT Ears, Nose, Mouth, and Throat: Reports as per HPI Cardiovascular Cardiovascular: Reports system reviewed and no additional complaints, except as documented and Denies chest pain Respiratory Respiratory: Denies shortness of breath, Reports chest congestion, Reports cough, Denies stridor and Denies wheezing Gastrointestinal Gastrointestingal: Reports system reviewed and no additional complaints, except as documented; Denies abdominal pain, diarrhea or vomiting Musculoskeletal Musculoskeletal: Reports system reviewed and no additional complaints, except as documented and Denies arthralgias Integumentary/Breasts Skin/Breast: Reports system reviewed and no additional complaints, except as documented and Denies rash Neurologic Neurologic: Denies paresthesias Allergic/Immunologic Allergic/Immunologic: Denies wheezing Physical Exam General General appearance: alert and in no apparent distress Eye Eye exam: Present normal appearance, PERRL and EOMI ENT ENT exam: Present mucous membranes moist and normal external ear exam Expanded ENT Exam External ear exam: Present normal external inspection TM/Canal exam: Bilateral TM: erythema and bulging Nose exam: Absent sinus tenderness Nasal speculum exam: Bilateral: normal Mouth exam: Present normal external inspection; Absent drooling Teeth exam: Present normal inspection Throat exam: Present tonsillar erythema and tonsillomegaly Neck Neck exam: Present normal inspection, full ROM and trachea midline; Absent tenderness, lymphadenopathy or thyromegaly Chest Chest inspection: Present normal inspection and symmetric chest wall rise; Absent tenderness or rash Respiratory Respiratory exam: Present normal lung sounds bilaterally; Absent respiratory distress, wheezes, stridor or accessory muscle use Cardiovascular Cardiovascular exam: Present regular rate, normal rhythm and normal heart sounds Abdominal Exam Abdominal exam: Present soft; Absent distention, tenderness, guarding, rebound or rigidity Extremities Exam Extremities exam: Present normal inspection, full ROM and normal capillary refill; Absent tenderness or calf tenderness Back Exam Back exam: Present normal inspection and full ROM; Absent tenderness Neurological Exam Neurological exam: Present alert and oriented X3 Psychiatric Psychiatric exam: Present normal affect and normal mood Skin Skin exam: Present warm, dry, intact and normal color Lymphatic Lymphatic Findings: no adenopathy Medical Decision Making Medical Records Medical records reviewed: No I reviewed the patient's medical records. Shaheed Inquiry Pt receiving controlled substance: No Vital Signs: 05/07/24 09:45 Temperature 97.5 F L Temperature Source Oral Pulse Rate [Right Radial] 63 Respiratory Rate 18 Blood Pressure [Right Arm] 146/72 H Blood Pressure Mean [Right Arm] 96 Blood Pressure Source [Right Arm] Automatic Cuff Blood Pressure Position [Right Arm] Sitting 02 Sat by Pulse Oximetry 97 Oxygen Delivery Method Room Air Orders (Tests/Meds): ORDERS Category Date Time Status Chest XR 2 view (NOT portable) [XR chest 2V] Stat Exams 05/07/24 09:54 Ordered
--- NOTE | 2024-05-07 10:54 | PC.NURSE ---
Addendum entered by Mely Rosas RN 05/07/24 10:55: Just full panel sent to lab via tube system. Original Note: Sent full panel and urine culture to lab via tube system.
[2024-05-07 10:55] VITALS: BP 146/72; PULSE 63; RESP 18; TEMP 36.4; O2SAT 97
[2024-05-07 10:55] LABS: Adenovirus,PCR Not Detected (NotDetected); Bordetella Pertussis Not Detected (NotDetected); Chlamydophila Pneumoniae, PCR Not Detected (NotDetected); Coronavirus 19, PCR Not Detected (NotDetected); Coronavirus 229E Not Detected (NotDetected); Coronavirus NL63 Not Detected (NotDetected); Coronavirus OC43 Not Detected (NotDetected); Coronovirus HKU1,PCR Not Detected (NotDetected); Human Metapneumovirus Not Detected (NotDetected); Influenza A, PCR Not Detected (NotDetected); Influenza AH1, 2009 Not Detected (NotDetected); Influenza AH1, PCR Not Detected (NotDetected); Influenza AH3,PCR Not Detected (NotDetected); Influenza B, PCR Not Detected (NotDetected); Mycoplasma Pneumoniae, PCR Not Detected (NotDetected); Parainfluenza 1, PCR Not Detected (NotDetected); Parainfluenza 2, PCR Not Detected (NotDetected); Parainfluenza 3, PCR Not Detected (NotDetected); Parainfluenza 4, PCR Not Detected (NotDetected); Respiratory Syncytial Virus Not Detected (NotDetected); Rhinovirus/Enterovirus Not Detected (NotDetected)
--- NOTE | 2024-05-07 19:21 | PC.NURSE ---
Spoke with patient about full panel results which are negative. No further action is required.
== END 2024-05-07 10:55 | disposition home or self-care (01) ==
PROVIDERS: Emergency Provider Nurse Practitioner Family; PCP Physician Assistant
DX: J44.1 Chronic obstructive pulmonary disease with (acute) exacerbation (principal); R06.02 Shortness of breath; R05.9 Cough, unspecified; F17.210 Nicotine dependence, cigarettes, uncomplicated
CPT/HCPCS: 71046; 87581; 87632; 87635; 87798; 99212; 99214; G0463

== ENCOUNTER 2024-05-29 09:40 | Emergency (ER) | payer BC, SELFPAY ==
[2024-05-29 09:40] VITALS: BP 151/92; PULSE 74; RESP 24; TEMP 36.7; O2SAT 93; BMI 26.6
--- NOTE | 2024-05-29 09:45 | PC.NURSE ---
DR GARRIDO AT BEDSIDE
--- NOTE | 2024-05-29 09:46 | ECG_ITS ---
APPROVED REPORT Exam: Resting ECG HR:65 bpm ECG Measurements Heart Rate 65 AXES PA 139 P 68 QRSd 85 QRS 74 QT 391 T 67 QTc 403 Conclusion SINUS RHYTHM POSSIBLE RIGHT VENTRICULAR CONDUCTION DELAY [RSR (QR) IN V1/V2] BORDERLINE ECG UNCONFIRMED REPORT Electronically signed by : David Gaston, 05/29/2024 14:32:17
--- NOTE | 2024-05-29 09:49 | ECG_ITS ---
APPROVED REPORT Exam: Resting ECG HR:64 bpm ECG Measurements Heart Rate 64 AXES VT 141 P 74 QRSd 81 QRS 74 QT 375 T 60 QTc 384 Conclusion SINUS RHYTHM WITH OCCASIONAL SUPRAVENTRICULAR PREMATURE COMPLEXES POSSIBLE RIGHT VENTRICULAR CONDUCTION DELAY [RSR (QR) IN V1/V2] BORDERLINE ECG UNCONFIRMED REPORT Electronically signed by : David Gaston, 05/29/2024 14:32:25
[2024-05-29 09:51] VITALS: BMI 26.6
[2024-05-29 10:00] VITALS: BP 118/83; PULSE 67; O2SAT 94
[2024-05-29 10:03] LABS: Lactate Venous 1.5 mmol/L (0.4-2.0); VBG HCO3 23.4 mmol/L (23-30); VBG Oxygen Saturation 92.8 % (50-70); VBG PCO2 42.5 mmol/L (35-51); VBG PH 7.36 mmol/L (7.31-7.41); VBG PO2 67.4 mmol/L (28-40); VBG Total CO2 24.7 mmol/L (23-27)
--- NOTE | 2024-05-29 10:05 | PC.NURSE ---
Dr. Gaston at bedside
--- NOTE | 2024-05-29 10:11 | CT_ITS ---
PROCEDURE INFORMATION: Exam: CTA Chest With Contrast Exam date and time: 05/29/2024 11:07 AM Age: 68 years old Clinical indication: Cough and dyspnea; Additional info: Persistent dyspnea/cough TECHNIQUE: Imaging protocol: Computed tomographic angiography of the chest with contrast. Exam focused on the arteries. 3D rendering (Not supervised by radiologist): MIP and/or 3D reconstructed images were created by the technologist. Radiation optimization: All CT scans at this facility use at least one of these dose optimization techniques: automated exposure control; mA and/or kV adjustment per patient size (includes targeted exams where dose is matched to clinical indication); or iterative reconstruction. Contrast material: ISOVUE 370; Contrast volume: 70 ml; Contrast route: INTRAVENOUS (IV); COMPARISON: CT ANGIO CHEST PE PROTOCOL 04/08/2024 8:56 PM FINDINGS: Pulmonary arteries: Normal. No pulmonary emboli. Aorta: Unremarkable. No aortic aneurysm. No aortic dissection. Lungs: Moderate centrilobular emphysema. Calcified granuloma in the right lung. No focal airspace consolidation. There is a 5 mm left upper lobe pulmonary nodule on series 5, image 26. There is a 3 mm subpleural right middle lobe pulmonary nodule on image 75. Pleural spaces: Unremarkable. No pneumothorax. No pleural effusion. Heart: Unremarkable. No cardiomegaly. No pericardial effusion. Lymph nodes: Unremarkable. No enlarged lymph nodes. Gallbladder and biliary ducts: Cholecystectomy. Kidneys and ureters: Bilateral renal cysts. Bones/joints: Unremarkable. No acute fracture. Soft tissues: Unremarkable. IMPRESSION: 1. No pulmonary emboli or other acute cardiopulmonary pathology identified. 2. A couple sub 6 mm pulmonary nodules are seen in the lungs. For patients at low risk (minimal or absent history of smoking and of other known risk factors), no routine follow-up is indicated. For patients at high risk (history of smoking or of other known risk factors), consider optional CT Chest at 12 months. (Reference: Josesito) COMMENTS: 1. Consistent with the [employer]'s Incidental Findings Committee white paper (J Am Ambika Radiol 2018): Any incidental renal lesion less than 1 cm or classified as too small to characterize, or any incidental cystic renal lesion characterized as simple-appearing, is likely benign. No follow-up imaging is recommended for these lesions per consensus recommendations based on imaging criteria. 2. The presence of pulmonary emphysema on CT is an independent risk factor for lung cancer. In the absence of a history or active diagnosis of lung cancer, it is recommended that this patient with emphysema be evaluated for enrollment in a low dose CT lung cancer screening program. REFERENCES: Josesito Cruz, et al. Guidelines for Management of Incidental Pulmonary Nodules Detected on CT Images: From the [employer] Society 2017. Radiology. 2017;284(1):228-243.
--- NOTE | 2024-05-29 10:14 | HMH.EDGENADL ---
Discharge Plan Disposition Patient Disposition: Home, Self-Care Prescriptions Prescriptions: No Action bisoprolol fumarate 5 mg tablet 5 mg PO DAILY Rx Instructions: TAke one tab twice daily albuterol sulfate 90 mcg/actuation HFA aerosol inhaler 2 inh inhalation QID PRN (Reason: shortness of breath or wheezing) 90 Days Qty: 8.5 2RF albuterol sulfate 1.25 mg/3 mL solution for nebulization 1.25 mg inhalation QID PRN (Reason: shortness of breath or wheezing) Qty: 90 3RF aspirin 81 mg tablet,delayed release (DR/EC) 81 mg PO DAILY Qty: 90 3RF Trelegy Ellipta 200-62.5-25 mcg blister with device 1 inh inhalation DAILY Qty: 90 3RF pravastatin 40 mg tablet 40 mg PO HS Qty: 90 3RF olmesartan 40 mg tablet 40 mg PO DAILY Qty: 90 3RF mirtazapine [Remeron] 15 mg tablet 15 mg PO HS Qty: 90 1RF amlodipine 10 mg tablet 10 mg PO DAILY Qty: 90 3RF cholecalciferol (vitamin D3) 1,250 mcg (50,000 unit) tablet 1,250 mcg PO WEEKLY Qty: 5 0RF hydrochlorothiazide 25 mg tablet See Rx Instructions .ROUTE .COMPLEX Qty: 90 3RF Dose Instruction: Take 1 tablet by mouth once daily Rx Instructions: Take 1 tablet by mouth once daily nicotine 21 mg/24 hr Patch 24 Hour 21 mg transdermal DAILYP PRN (Reason: Nicotine Cravings) Qty: 28 2RF Linzess 145 mcg capsule 145 mcg PO DAILY Patient Comments: TAKE ONE CAPSULE BY MOUTH EVERY DAY prednisone 10 mg tablet 10 mg PO DIRECTED 9 Days Qty: 21 0RF Rx Instructions: Take 4 tablets daily for 3 days, then take 2 tablets daily for 3 days, then take 1 tablet daily for 3 days, then stop. doxycycline hyclate 100 mg capsule 100 mg PO Q12 10 Days Qty: 20 0RF amoxicillin 875 mg tablet 875 mg PO Q12H Qty: 20 0RF benzonatate 100 mg capsule 100 mg PO TIDP PRN (Reason: Cough) Qty: 30 0RF guaifenesin [Mucinex] 600 mg tablet extended release 12hr 600 - 1,200 mg PO BIDP PRN (Reason: Congestion) Qty: 30 0RF Referrals Follow up/Referrals: Analilia Mayer PA [Primary Care Provider] - See instructions Nitish Yan MD [Physician] - See instructions Activity Restrictions/Add. Instructions Additional Instructions/Restrictions: No emergent medical condition identified today your symptoms are most consistent with benign pathology or underlying obstructive lung disease. Please stop smoking as we discussed take your albuterol inhaler and to follow-up with your software development project manager. Return with any significant worsening of your symptoms. Clinical Impressions Clinical Impression: Encounter for smoking cessation counseling COPD (chronic obstructive pulmonary disease) Qualifiers: COPD type: unspecified COPD Qualified Code(s): J44.9 - Chronic obstructive pulmonary disease, unspecified Print Language Print Language: Lao Discharge ED Provider: Minoo Gaston General Adult HPI General Chief complaint: Shortness of Breath/Dyspnea Stated complaint: soa Time Seen by Provider: 05/29/24 09:46 Mode of Arrival: Ambulatory Source of Information: Patient Limitations: No Limitations Description of Symptoms (Recalled from ER Triage Doc. by RN): increased shortness of breath. History of Present Illness HPI narrative: Patient is a 68-year-old female presenting today with multiple complaints. She has a history of COPD has been smoking up until yesterday is closely followed by Dr. Yan who presents today with worsening shortness of breath. States that since she had her gallbladder taken out that she has had persistent worsening cough and shortness of breath. She had a CT scan that was done about a month and a half ago which showed a questionable lingular infection she was admitted for hypoxic respiratory failure treated with antibiotics but states she has not improved. She has been on numerous antibiotics and she states most recently doxycycline. She states that she has had improvement to some extent with some steroids and breathing treatments. She denies any fevers or chills she does states she has an ongoing productive cough. Denies any exertional chest pain. Also states that she believes that she may have some underlying esophageal pathology and has not had a scope in some time. But denies any improvement with antacids. She is frustrated stating I feel like somebody is missing something. She has had pulmonary nodules and a PET scan in the past which was unremarkable and she has been followed from a cancer screening standpoint. Related Data Home Medications ?Medication ?Instructions ?Recorded ?Confirmed bisoprolol fumarate 5 mg tablet 5 mg PO DAILY BLOOD PRESSURE 04/12/24 05/07/24 linaclotide 145 mcg capsule 145 mcg PO DAILY 05/07/24 05/07/24 (Linzess) Previous Rx's ?Medication ?Instructions ?Recorded albuterol sulfate 1.25 mg/3 mL 1.25 mg (3 mL) inhalation QID PRN 01/11/24 solution for nebulization shortness of breath or wheezing #90 mL albuterol sulfate 90 mcg/actuation 2 inh inhalation QID PRN shortness 01/11/24 aerosol inhaler of breath or wheezing 90 days #8.5 grams aspirin 81 mg tablet,delayed 81 mg PO DAILY #90 tabs 01/11/24 release fluticasone fur. 200 mcg-umeclid 1 inh inhalation DAILY COPD #90 ea 01/11/24 62.5 mcg-vilant 25 mcg inhalat.powder (Trelegy Ellipta) olmesartan 40 mg tablet 40 mg PO DAILY BP #90 tabs 01/11/24 pravastatin 40 mg tablet 40 mg PO HS . #90 tabs 01/11/24 amlodipine 10 mg tablet 10 mg PO DAILY #90 tabs 01/12/24 mirtazapine 15 mg tablet (Remeron) 15 mg PO HS #90 tabs 03/29/24 cholecalciferol (vitamin D3) 1,250 1,250 mcg PO WEEKLY #5 tabs 04/04/24 mcg (50,000 unit) tablet nicotine 21 mg/24 hr daily 21 mg transdermal DAILYP PRN 04/09/24 transdermal patch Nicotine Cravings #28 ea amoxicillin 875 mg tablet 875 mg PO Q12H #20 tabs 05/07/24 benzonatate 100 mg capsule 100 mg PO TIDP PRN Cough #30 caps 05/07/24 doxycycline hyclate 100 mg capsule 100 mg PO Q12 10 days #20 caps 05/07/24 guaifenesin 600 mg tablet, 600 - 1,200 mg (1 - 2 x 600 mg) PO 05/07/24 extended release 12 hr (Mucinex) BIDP PRN Congestion #30 tabs prednisone 10 mg tablet 10 mg PO DIRECTED 9 days #21 05/07/24 tabs hydrochlorothiazide 25 mg tablet See Rx Instructions .Route 05/16/24 .COMPLEX #90 tabs Allergies Allergy/AdvReac Type Severity Reaction Status Date / Time acetaminophen [From Tylenol] Allergy Verified 05/07/24 09:57 clarithromycin [From Biaxin] Allergy Verified 05/07/24 09:57 Sulfa (Sulfonamide Allergy Verified 05/07/24 09:57 Antibiotics) levofloxacin AdvReac Intermediate difficulty Verified 05/07/24 09:57 urinating tramadol AdvReac Intermediate Vomiting Verified 05/07/24 09:57 [facility] Disclaimer: The information contained in this section may have been updated after the patient was seen, as this information can be updated by other users. 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 Surgical History History of laparoscopic cholecystectomy History of hysterectomy Family History Sister Lung cancer Brother Lung cancer Other Cancer Family history of DVT Family history of diabetes mellitus type II Family history of stroke Social History Smoking Status: Current every day smoker tobacco type: cigarettes packs per day: 1 alcohol intake: current alcohol intake frequency: 3 or more drinks per day substance use type: denies use current occupational status: retired Travel in the last 8 weeks: None household members: spouse housing: house caffeine: Yes ROS Obtained: Yes All systems reviewed & no additional complaints except as documented Physical Exam General General appearance: alert and in no apparent distress Respiratory Respiratory exam: Present other (Patient speaking in very long sentences without any significant respiratory distress no prolonged expiratory phase or accessory muscle use oxygen saturations in the mid 90s on room air normal respiratory effort) Cardiovascular Cardiovascular exam: Present regular rate and normal rhythm Neurological Exam Neurological exam: Present alert and oriented X3 Medical Decision Making Shaheed Inquiry Pt receiving controlled substance: No Vital Signs: 05/29/24 09:40 05/29/24 10:00 Temperature 98.1 F Temperature Source Oral Pulse Rate 67 Pulse Rate [Right] 74 Respiratory Rate 24 Blood Pressure 118/83 Blood Pressure [Right Arm] 151/92 H Blood Pressure Mean [Right Arm] 111 02 Sat by Pulse Oximetry 93 L 94 L Oxygen Delivery Method Room Air Room Air Lab Data Lab results reviewed: Yes I reviewed the patient's lab results. Lab Results 05/29/24 09:50: WBC 12.1 H, RBC 4.05 L, Hgb 13.5, Hct 41.0, MCV 101.4 H, MCH 33.5 H, MCHC 33.0, RDW 14.4, Plt Count 465 H, MPV 8.4, Neut % (Auto) 56.3, Lymph % (Auto) 23.5, Bell % (Auto) 6.4, Eos % (Auto) 12.1 H, Baso % (Auto) 1.6, Neut # (Auto) 6.8, Lymph # (Auto) 2.8, Bell # (Auto) 0.8, Eos # (Auto) 1.5 H, Baso # (Auto) 0.2, VBG pH 7.36, VBG pCO2 42.5, VBG pO2 67.4 H, VBG HCO3 23.4, VBG Total CO2 24.7, VBG O2 Saturation 92.8 H, VBG Base Excess -2.0, VBG Lactic Acid 1.5, Sodium 137, Potassium 4.4, Chloride 108 H, Carbon Dioxide 26, Anion Gap 7.4, BUN 16, Creatinine 0.60, Estimated Creat Clear 62, Estimated GFR 99, Est GFR ( Amer) 120, Glucose 111 H, Calcium 9.7, Total Bilirubin 0.5, AST 32, ALT 25, Alkaline Phosphatase 69, Troponin I < 0.01, NT-Pro-B Natriuret Pep 495 H, Total Protein 6.8, Albumin 4.3, Globulin 2.5, Albumin/Globulin Ratio 1.7 05/29/24 09:50 05/29/24 09:50 Orders (Tests/Meds): ED MEDICATIONS Discontinued Medications Generic Name Dose Route Start Last Admin Trade Name Freq PRN Reason Stop Dose Admin Albuterol/Ipratropium 3 ml 05/29/24 10:11 05/29/24 10:20 Ipratropium/Albuterol 3 Ml Neb IH 05/29/24 10:12 3 ml ONCE ONE Administration Belladonna Alkaloids 60 ml 05/29/24 10:11 05/29/24 10:19 Belladonna Alkaloids 60 Ml Ml PO 05/29/24 10:12 60 ml ONCE ONE Administration Dexamethasone Sodium Phosphate 10 mg 05/29/24 10:11 05/29/24 10:19 Dexamethasone 4mg/Ml 1ml Vial IV 05/29/24 10:12 10 mg ONCE ONE Administration Iopamidol 70 ml 05/29/24 11:13 05/29/24 11:14 Iopamidol-370 (76%);100ml Bottle IV 05/29/24 11:14 70 ml ONCE ONE Administration Sodium Chloride 10 ml 05/29/24 11:13 05/29/24 11:14 Sodium Chloride 0.9% 10ml Syr (Rad Only) IV 05/29/24 11:14 10 ml ONCE ONE Administration Sodium Chloride 50 ml 05/29/24 11:13 05/29/24 11:14 0.9 % Sodium Chloride 50 Ml Vial IV 05/29/24 11:14 50 ml ONCE ONE Administration ORDERS Category Date Time Status CT angio chest PE protocol Stat Cat Scan 05/29/24 10:11 Completed BNP [NT Pro Brain Natriuretic Pep.] Stat Lab 05/29/24 09:50 Completed CBC w/Auto Diff [Complete Blood Count Auto Diff] Stat Lab 05/29/24 09:50 Completed CMP [Comprehensive Metabolic Panel] Stat Lab 05/29/24 09:50 Completed Full Resp Panel w/COVID ([facility]) Routine Lab 05/29/24 10:12 Ordered Trop I [Troponin I] Stat Lab 05/29/24 09:50 Completed Troponin I Q3H Lab 05/29/24 13:15 Ordered Troponin I Q3H Lab 05/29/24 16:15 Ordered Venous Blood Gas Routine RT 05/29/24 09:50 Completed 12-lead EKG Request [ECG Request] Stat Y 05/29/24 09:52 Ordered ECG Data Tracing #1: I reviewed this ECG and interpreted as documented below: Ventricular rate of 65 normal sinus rhythm no acute ischemic changes noted no significant conduction abnormalities normal axis Medical Decision Narrative: 68-year-old with above history and physical. I suspect the majority of her symptoms are secondary to her COPD and ongoing pulmonary insult with ongoing smoking which is keeping her from being able to improve from a symptomatic standpoint with regards to underlying inflammatory/infectious etiologies. Will escalate given that she claims that she is worsening today and repeat a CT scan to make sure is not any worsening pneumonia, pulmonary embolism, malignancy etc. I personally reviewed her recent CT scan and was very unimpressive from a lung parenchymal standpoint and did not appreciate an obvious pneumonia. It is possible she has alternative pathology such as GI/esophagitis/GERD which could be causing this we will give a GI cocktail to see if this improves her symptoms. This in addition to steroids and a breathing treatment as she claims that this is the only thing making her feel better. I have advised that she continue to stop smoking we had an extensive discussion regarding that and to closely follow-up with Dr. Yan also will give her a referral to a general surgeon/jinrikisha driver for evaluation of possible GI related pathology. Reassessment 1220 patient remains very stable oxygen saturations above 90% on room air no significant respiratory distress CT scan performed to person interpreted shows no acute cardiopulmonary emergency specifically no evidence of pneumonia pulmonary embolism malignancy etc. Labs otherwise unremarkable working diagnosis currently is her known COPD and ongoing insult/injury with her smoking she is advised to stop smoking to follow-up with her software development project manager and return any significant worsening of her symptoms. Critical Care Critical Care Time Critical Care Time: No
[2024-05-29] MEDS: DEXAMETHASONE 4MG/ML 1ML VIAL 10 MG IV (10:19)
[2024-05-29] MEDS: BELLADONNA ALKALOIDS 60 ML ML PO (10:19)
[2024-05-29] MEDS: IPRATROPIUM/ALBUTEROL 3 ML NEB IH (10:20)
[2024-05-29 10:21] LABS: Basophils # 0.2 K/mm3 (0-0.2); Basophils % 1.6 % (0.1-2.0); Eosinophils # 1.5 K/mm3 (0.0-0.4); Eosinophils % 12.1 % (0.1-12.0); Hemoglobin 13.5 g/dL (12.2-16.2); Lymphocytes # 2.8 K/mm3 (0.7-4.5); Lymphocytes % 23.5 % (10-50); Mean Corpuscular Hemoglobin 33.5 pg (27.0-31.2); Mean Corpuscular Volume 101.4 fl (81-99); Mean Platelet Volume 8.4 fl (7.4-10.4); Monocytes # 0.8 K/mm3 (0.1-1.0); Monocytes % 6.4 % (1.7-9.3); Neutrophils # 6.8 K/mm3 (1.8-7.8); Neutrophils % 56.3 % (37.0-80.0); Platelet Count 465 K/mm3 (142-424); Red Blood Count 4.05 M/mm3 (4.20-5.40); Red Cell Distribution Width 14.4 % (11.5-17.5); White Blood Count 12.1 K/mm3 (4.8-10.8)
[2024-05-29 10:22] LABS: Albumin Level 4.3 g/dl (3.5-5.0); Chloride 108 mmol/L (98-107)
[2024-05-29 10:23] LABS: Potassium 4.4 mmoL/L (3.5-5.1); Sodium 137 mmol/L (136-145)
[2024-05-29 10:25] LABS: Alanine Aminotransferase 25 U/L (12-78); Anion Gap 7.4 mEq/L (5-15); Aspartate Amino Transferase 32 U/L (14-36); Bilirubin,Total 0.5 mg/dl (0.2-1.3); Blood Urea Nitrogen 16 mg/dl (7-17); Carbon Dioxide 26 mmol/L (22.0-30.0); Creatinine Clearance Estimated 62 mL/min (50-200); Estimated Glomerular Filt Rate 99 ml/min (>60); GFR (African American) 120 ML/MIN (>60)
[2024-05-29 10:26] LABS: Albumin/Globulin Ratio 1.7 (1.1-1.8); Alkaline Phosphatase 69 U/L (38-126); Calcium 9.7 mg/dl (8.4-10.2); Globulin 2.5 g/dL (1.3-3.2); Glucose 111 mg/dl (74-100); Total Protein,Serum 6.8 g/dl (6.3-8.2)
[2024-05-29 10:35] LABS: NT Pro Brain Natriuretic Pep. 495 pg/mL (0-125)
[2024-05-29 10:39] LABS: Troponin I < 0.01 ng/ml (0.00-0.034)
--- NOTE | 2024-05-29 10:58 | PC.NURSE ---
radiology is taking her to CT for a scan at this time.
--- NOTE | 2024-05-29 11:10 | PC.NURSE ---
back from CT at 1110
[2024-05-29] MEDS: 0.9 % SODIUM CHLORIDE 50 ML VIAL IV (11:14)
[2024-05-29] MEDS: IOPAMIDOL-370 (76%);100ML BOTTLE 70 ML IV (11:14)
[2024-05-29] MEDS: SODIUM CHLORIDE 0.9% 10ML SYR (RAD ONLY) 10 ML IV (11:14)
--- NOTE | 2024-05-29 12:14 | PC.NURSE ---
DR GARRIDO AT BEDSIDE TO UPDATE PT AND FAMILY
[2024-05-29 12:27] VITALS: BP 118/83; PULSE 67; RESP 16; TEMP 36.7; O2SAT 94
== END 2024-05-29 12:27 | disposition home or self-care (01) ==
PROVIDERS: Emergency Provider Student in an Organized Health Care Education/Training Program; PCP Physician Assistant
DX: R06.02 Shortness of breath (principal); J44.9 Chronic obstructive pulmonary disease, unspecified; F17.210 Nicotine dependence, cigarettes, uncomplicated; Z71.6 Tobacco abuse counseling
CPT/HCPCS: 71275; 80053; 82803; 83880; 84484; 85025; 93005; 96374; 99284; J1100; J7620; Q9967

== ENCOUNTER 2024-08-10 09:26 | Outpatient (CLI) | payer BC, SELFPAY ==
[2024-08-10 11:10] VITALS: PULSE 68; PULSE 73
[2024-08-10] MEDS: ALBUTEROL 0.083% 2.5 MG/3 ML NEB IH (11:10)
== END 2024-08-10 23:59 | disposition home or self-care (01) ==
LOC: RT 09:29
PROVIDERS: PCP Physician Assistant; Visit Provider Internal Medicine Pulmonary Disease
DX: R06.09 Other forms of dyspnea (principal)
CPT/HCPCS: 94060; 94618; 94640; 94726; 94729; J7613

== ENCOUNTER 2024-08-25 08:27 | Outpatient (CLI) | payer BC, SELFPAY ==
--- NOTE | 2024-08-25 08:31 | US_ITS ---
PROCEDURE INFORMATION: Exam: US Abdomen Complete Exam date and time: 08/25/2024 8:50 AM Age: 69 years old Clinical indication: Abdominal pain; Prior surgery; Surgery date: 1-6 months; Surgery type: Gb removal TECHNIQUE: Imaging protocol: Real-time ultrasound of the abdomen with image documentation. Complete exam. Total images: 54 COMPARISON: US ABDOMEN LIMITED 09/10/2023 8:45 AM FINDINGS: Liver: Liver is within normal limits. Gallbladder: Status post cholecystectomy. Biliary ducts: Common bile duct measures 3 mm. Pancreas: Visualized pancreas is unremarkable. Right kidney: Normal. No mass. No hydronephrosis. Left kidney: Normal. No mass. No hydronephrosis. Spleen: Normal. No splenomegaly. Aorta: Normal. No aneurysm. Inferior vena cava: Normal. IMPRESSION: Status post cholecystectomy.
[2024-08-25 09:33] LABS: Basophils # 0.1 K/mm3 (0-0.2); Basophils % 0.5 % (0.1-2.0); Eosinophils # 0.4 K/mm3 (0.0-0.4); Eosinophils % 2.1 % (0.1-12.0); Hematocrit 38.2 % (37.0-47.0); Hemoglobin 13.1 g/dL (12.2-16.2); Lymphocytes # 5.7 K/mm3 (0.7-4.5); Lymphocytes % 33.8 % (10-50); Mean Corpuscular HGB Conc 34.3 g/dL (31.8-35.4); Mean Corpuscular Hemoglobin 33.8 pg (27.0-31.2); Mean Corpuscular Volume 98.5 fl (81-99); Mean Platelet Volume 7.6 fl (7.4-10.4); Monocytes # 1.2 K/mm3 (0.1-1.0); Monocytes % 6.9 % (1.7-9.3); Neutrophils # 9.6 K/mm3 (1.8-7.8); Neutrophils % 56.7 % (37.0-80.0); Platelet Count 424 K/mm3 (142-424); Red Blood Count 3.87 M/mm3 (4.20-5.40); Red Cell Distribution Width 13.7 % (11.5-17.5)
[2024-08-25 09:46] LABS: Albumin Level 4.1 g/dl (3.5-5.0)
[2024-08-25 09:47] LABS: Chloride 98 mmol/L (98-107); Potassium 4.3 mmoL/L (3.5-5.1); Sodium 131 mmol/L (136-145)
[2024-08-25 09:49] LABS: Bilirubin,Unconjugated 0.4 mg/dL (0.0-1.1); Blood Urea Nitrogen 12 mg/dl (7-17); Estimated Glomerular Filt Rate 99 ml/min (>60); GFR (African American) 120 ML/MIN (>60)
[2024-08-25 09:50] LABS: Alanine Aminotransferase 36 U/L (12-78); Alkaline Phosphatase 48 U/L (38-126); Anion Gap 6.3 mEq/L (5-15); Aspartate Amino Transferase 30 U/L (14-36); Bilirubin,Direct 0.1 mg/dl (0.0-0.4); Bilirubin,Indirect 0.4 mg/dL (0.0-0.9); Bilirubin,Total 0.5 mg/dl (0.2-1.3); Calcium 9.1 mg/dl (8.4-10.2); Carbon Dioxide 31 mmol/L (22.0-30.0); Chol/HDL Ratio 1.9 (1-3.5); Cholesterol 152 mg/dl (140-200); Glucose 96 mg/dl (74-100); HDL Cholesterol 81 mg/dl (40-60); Magnesium 1.9 mg/dl (1.6-2.3); Total Protein,Serum 6.1 g/dl (6.3-8.2); Triglycerides 112 mg/dl (30-150); VLDL Cholesterol 22 mg/dL (0-40)
[2024-08-25 09:51] LABS: MANUAL DIFFERENTIAL MANUAL DIFFERENTIAL (MANUAL DIFF)
[2024-08-25 10:01] LABS: Direct LDL Cholesterol 46.79 mg/dL (100-129)
[2024-08-25 10:06] LABS: Free T4 (Free Thyroxine) 0.99 ng/dl (0.78-2.19)
[2024-08-25 10:19] LABS: Thyroid Stimulating Hormone 0.72 uIU/mL (0.465-4.68)
[2024-08-25 10:43] LABS: Lymphocytes % 44 % (10-50); Monocytes % 3 % (2-9); Neutrophils % 53 % (42-76); Platelet Estimate Normal; RBC Morphology Normal; Total Cells Counted 100
[2024-08-26 14:14] LABS: Albumin 3.7 g/dL (2.9-4.4); Alpha-1-Globulin 0.3 g/dL (0.0-0.4); Alpha-2-Globulin 0.8 g/dL (0.4-1.0); Gamma Globulin 0.5 g/dL (0.4-1.8); Protein, Total 6.1 g/dL (6.0-8.5)
[2024-08-26 15:12] LABS: Free Kappa Lt Chains 7.5 mg/L (3.3-19.4); Free Lambda Lt Chains 8.4 mg/L (5.7-26.3)
[2024-08-29 15:30] LABS: Albumin, U 73.5 % (.); Alpha-1-Globulin, U 3.7 % (.); Alpha-2-Globulin, U 6.7 % (.); Beta Globulin, U 10.6 % (.); Gamma Globulin, U 5.4 % (.); Immunoglobulin A, Qn 124 mg/dL (87-352); Immunoglobulin G, Qn 517 mg/dL (586-1602); Immunoglobulin M, Qn 71 mg/dL (26-217); M-Spike, % Not Observed % (Not Observed); Protein,Total,Urine 10.3 mg/dL (Not Estab.)
[2024-09-27 16:06] LABS: PDF SCANNED IMAGE
[2024-09-28 10:39] LABS: PDF: SCANNED IMAGE
== END 2024-08-25 23:59 | disposition home or self-care (01) ==
LOC: RAD 08:28
PROVIDERS: Internal Medicine; PCP Nurse Practitioner; Visit Provider Nurse Practitioner
DX: E78.2 Mixed hyperlipidemia (principal); R10.9 Unspecified abdominal pain; I95.9 Hypotension, unspecified; M54.9 Dorsalgia, unspecified; M54.42 Lumbago with sciatica, left side; M54.41 Lumbago with sciatica, right side; I51.89 Other ill-defined heart diseases; G89.29 Other chronic pain
CPT/HCPCS: 36415; 76700; 80048; 80061; 80076; 82784; 83735; 83883; 84155; 84156; 84165; 84166; 84439; 84443; 85007; 85025; 85027; 86334; 86335

== ENCOUNTER → 2024-08-29 09:07 | Outpatient (REF) | payer BC, SELFPAY ==
[2024-08-29 10:55] LABS: Total Protein,Serum 5.5 g/dl (6.3-8.2)
[2024-08-31 11:24] LABS: Albumin, U 47.6 % (.); Alpha-1-Globulin, U 2.1 % (.); Alpha-2-Globulin, U 8.4 % (.); Gamma Globulin, U 24.9 % (.); M-Spike, % Not Observed % (Not Observed); Prot,24hr calculated 103 mg/24 hr (30-150); Protein,Total,Urine 4.7 mg/dL (Not Estab.)
[2024-09-28 10:48] LABS: PDF: SCANNED IMAGE
== END ==
LOC: LAB 09:07
PROVIDERS: Visit Provider Internal Medicine
DX: E78.2 Mixed hyperlipidemia (principal); Z72.0 Tobacco use; I10 Essential (primary) hypertension; I95.9 Hypotension, unspecified; M54.9 Dorsalgia, unspecified; M54.42 Lumbago with sciatica, left side; M54.41 Lumbago with sciatica, right side; G89.29 Other chronic pain
CPT/HCPCS: 36415; 84155; 84156; 84166

== ENCOUNTER 2024-10-10 08:33 | Outpatient (CLI) | payer BC, SELFPAY ==
--- NOTE | 2024-10-10 08:34 | MR_ITS ---
APPROVED REPORT Automatic Seamer: This is a preliminary cardiac MRI (without contrast). The patient underwent repeat cardiac MRI with contrast on 10/21/2024. The final results for both CMRs are dictated in the EMR under the cardiac MRI test dated on 10/21/2024. Conclusion Electronically signed by : Milagro Bailon MD 10/30/2024 12:56:50
[2024-10-10 08:53] LABS: Blood Urea Nitrogen 14 mg/dl (7-17); Estimated Glomerular Filt Rate 99 ml/min (>60); GFR (African American) 120 ML/MIN (>60)
== END 2024-10-10 23:59 | disposition home or self-care (01) ==
LOC: RAD 08:34
PROVIDERS: PCP Nurse Practitioner; Visit Provider Internal Medicine
DX: R94.39 Abnormal result of other cardiovascular function study (principal); I20.89 Other forms of angina pectoris
CPT/HCPCS: 36415; 75557; 82565; 84520

== ENCOUNTER 2024-10-21 10:16 | Outpatient (CLI) | payer BC, SELFPAY ==
--- NOTE | 2024-10-21 10:17 | MR_ITS ---
APPROVED REPORT Table Top Tile Setter: CLINICAL INDICATION Evluation for infiltrative cardiomyopathy. Of note, this study was performed over 2 days (10/10/2024 without contrast and 10/21/2024 with contrast). The findings below reflect results of both studies. TECHNIQUE Image Acquisition: Cardiac magnetic resonance (CMR) was performed on Siemens Espree MRI 1.5T scanner. Software platform sequences were performed using the Siemens [employer] MR B19 platform. A set of three-plane, low-resolution, large [id number] localizers were initially acquired. Then axial, coronal, sagittal TrueFISP, as well as axial HASTE images, were obtained. These were followed by gated TrueFISP breathold cinematic sequences obtained in the short axis with 8 mm slices and 2 mm gaps, 2-chamber (vertical long axis), 3-chamber, 4-chamber (horizontal long axis). A bolus of contrast was injected intravenously with first-pass sequences obtained in the short axis and four-chamber planes. After approximately 10 minutes, a TI senior quality engineer sequence was performed to determine the optimal TI time. Using the optimized TI time, delayed contrast enhancement segmented inversion???recovery TurboFLASH sequences were obtained in the short axis, 2-chamber, 3-chamber, and 4-chamber projections. 2D-velocity phase mapping was performed. Functional parameters were calculated by offline analysis on an independent workstation ([employer] Imaging Platform, [id number]). Contrast: ProHance??? (Gadoteridol) FINDINGS MORPHOLOGY AND FUNCTION Left ventricle: The left ventricle is normal in size. The indexed left ventricular end-diastolic volume (LVEDVi) is 56 ml/m2 (reference range 57-105 ml/m2 in males, 56-96 ml/m2 in females). Normal left ventricular systolic function is present. There is increased left ventricular wall thickness. Maximum LV wall thickness measures 11.0 mm. There are no regional wall motion abnormalities noted. LVEF is calculated at 68.0% (reference range 57-77%). Right ventricle: The right ventricle is normal in size. The indexed right ventricular end-diastolic volume (RVEDVi) is 50 ml/m2 (reference range 61-121 ml/m2 in males, 48-112 ml/m2 in females). Normal right ventricular systolic function is present. RVEF is calculated at 62.5% (reference range 52-72% in males, 51-71% in females). Atria: The left atrium is normal in size. The maximum indexed left atrial volume is 36 ml/m2 (reference range 26-52 ml/m2 in males, 27-53 ml/m2 in females). The right atrium is normal in size. The maximum indexed right atrial volume is 18 ml/m2 (reference range 18-90 ml/m2). Aorta: The diameter of the aortic annulus is normal, measuring 20 mm (coronal view reference range 21-30 mm in males, 19-27 mm in females). The diameter of the aortic sinus is normal, measuring 31 mm (coronal view reference range 25-42 mm in males, 24-36 mm in females). The diameter of the sinotubular junction is normal, measuring 24 mm (coronal view reference range 18-32 mm in males, 18-28 mm in females). The diameters of the ascending and descending thoracic aorta are normal. Main pulmonary artery: The main pulmonary artery is mildly dilated, measuring 3.2 cm in diameter. Pericardium: The pericardial thickness is normal. The pericardial thickness measures 2.5 mm (normal < 4.0 mm). There is no pericardial effusion. VALVES The valvular morphologies in the visualized sequences appear grossly normal. Mild aortic insufficiency is preset. Systolic anterior motion of the mitral valve is not visualized. Ratio of pulmonary to systemic flow, Qp:Qs ratio = 0.80 (normal < or = 1.2, hemodynamically significant shunt > 1.5), demonstrating no evidence of hemodynamically significant shunt. TISSUE CHARACTERIZATION Resting Perfusion: Normal myocardial blood flow at rest. No evidence of resting hypoperfusion. Myocardial Fibrosis and/or edema: Normal gadolinium kinetics are present. No evidence of late gadolinium enhancement is noted, consistent with absence of myocardial scarring, infarction, or necrosis. T2-weighted imaging demonstrates no evidence of myocardial edema or inflammation. OTHER No other significant findings are noted. However, this exam is focused on the cardiac structure and function. IMPRESSION Of note, this study was performed over 2 days (10/10/2024 without contrast and 10/21/2024 with contrast). The findings above and impression below reflect results of both studies. Normal LV size with normal LV systolic function. LVEDVi= 56 ml/m2 and LVEF= 68.0%. Mildly increased LV wall thickness (max thickness 11 mm). Normal RV size with normal RV systolic function. RVEDVi= 50 ml/m2 and RVEF= 62.5%. No atrial enlargement. Mild aortic insufficiency is preset. No CMR evidence of myocardial scarring, infarction, or necrosis. No evidence of myocardial edema or inflammation. Perfusion analysis demonstrates normal blood flow at rest with no evidence of resting hypoperfusion. Ratio of pulmonary to systemic flow, Qp:Qs ratio = 0.80 (normal < or = 1.2, hemodynamically significant shunt > 1.5), demonstrating no evidence of hemodynamically significant shunt. Mildly dilated pulmonary artery (3.2 cm). Correlation with alternative imaging modalities to evaluate for pulmonary HTN is suggested. Overall, this CMR demonstrates normal biventricular systolic size and functio. No evidence of infiltrative cardiomyopathy. COMPARISON None CRITICAL RESULT None COMMUNICATION Per this written report The findings of this cardiac MR were reviewed, reported, and signed by Quintin Bailon MD (Water Service Dispatcher). Conclusion Electronically signed by : Milagro Bailon MD 10/30/2024 12:33:18
[2024-10-21] MEDS: 0.9 % SODIUM CHLORIDE 50 ML VIAL IV (11:34)
[2024-10-21] MEDS: SODIUM CHLORIDE 0.9% 10ML SYR (RAD ONLY) 10 ML IV (11:34)
[2024-10-21] MEDS: GADOTERIDOL INJ 20ML SYRINGE 17 ML IV (11:34)
== END 2024-10-21 23:59 | disposition home or self-care (01) ==
LOC: RAD 10:17
PROVIDERS: PCP Nurse Practitioner; Visit Provider Internal Medicine
DX: I20.89 Other forms of angina pectoris (principal); R94.39 Abnormal result of other cardiovascular function study
CPT/HCPCS: 75561; A9576

== ENCOUNTER 2024-11-01 09:37 | Outpatient (CLI) | payer BC, SELFPAY ==
--- NOTE | 2024-11-01 09:41 | US_ITS ---
FINAL REPORT CLINICAL HISTORY: CLAUDICATION,REST PAIN,EDEMA LLE,SMOKER,HTN,HLD FINDINGS: ANKLE-BRACHIAL PRESSURE INDICES Pressure indices are as follows: RIGHT LOWER EXTREMITY: Ankle-brachial pressure index: 1.05 Comments: Normal LEFT LOWER EXTREMITY: Ankle-brachial pressure index: 1.1 Comments: Normal CONCLUSION: No evidence of significant obstructive peripheral vascular disease of the lower extremities. Reviewed, Interpreted and Dictated by Traci Davis MD Transcribed by Melissa Higginbotham Authenticated and [facility]
--- NOTE | 2024-11-01 09:41 | CA_ITS ---
FINAL REPORT CLINICAL HISTORY: EDEMA OF LLE, PAIN LLE, NKI, PT ON ASA FINDINGS: DUPLEX VENOUS SONOGRAPHY OF THE LEFT LOWER EXTREMITY Multiple transverse and longitudinal scans were performed of the femoropopliteal deep venous system, with augmentation and compression maneuvers. HISTORY: Edema, left pain. FINDINGS: Normal phasic flow was noted in the visualized deep venous system. No intraluminal increased echogenicity is noted to suggest thrombus. There is normal compression and augmentation of the venous structures. No abnormal venous collaterals are seen. IMPRESSION: No evidence of deep venous thrombosis of the left lower extremity. Reviewed, Interpreted and Dictated by Traci Davis MD Transcribed by Richelle Carlisle Authenticated and . [facility]
== END 2024-11-01 23:59 | disposition home or self-care (01) ==
LOC: RT 09:38
PROVIDERS: PCP Nurse Practitioner; Visit Provider Nurse Practitioner Family
DX: I73.9 Peripheral vascular disease, unspecified (principal); R60.0 Localized edema; I51.89 Other ill-defined heart diseases
CPT/HCPCS: 93923; 93971

== ENCOUNTER 2025-02-27 10:08 | Outpatient (CLI) | payer BC, SELFPAY ==
[2025-02-27 10:17] LABS: Anti-Centromere B Antibodies ND; Anti-DNA (DS) Ab Qn ND; Anti-Jo-1 ND; Antichromatin Antibodies ND; Antiscleroderma-70 Antibodies ND; RNP Antibodies ND; Sjogren's Anti-SS-A ND; Sjogren's Anti-SS-B ND
--- NOTE | 2025-02-27 10:31 | XR_ITS ---
FINAL REPORT CLINICAL HISTORY: Bilateral LLE pain. nki COMPARISON: None FINDINGS: Two views of the left tibia and fibula were obtained. There is no acute fracture or dislocation. The joint spaces are intact. There is no soft tissue abnormality. IMPRESSION: No acute bony abnormality. Reviewed, Interpreted and Dictated by Irving Hopson MD Transcribed by Richelle Carlisle Authenticated and [facility]
--- NOTE | 2025-02-27 10:31 | XR_ITS ---
FINAL REPORT CLINICAL HISTORY: Bilateral LLE pain. nki COMPARISON: None FINDINGS: Two views of the right tibia and fibula were obtained. There is no acute fracture or dislocation. The joint spaces are intact. There is no soft tissue abnormality. IMPRESSION: No acute bony abnormality. Reviewed, Interpreted and Dictated by Irving Hopson MD Transcribed by Richelle Carlisle Authenticated and [facility]
[2025-02-27 10:43] LABS: Basophils # 0.1 K/mm3 (0-0.2); Basophils % 0.6 % (0.1-2.0); Eosinophils # 0.3 Kmm3 (0.0-0.4); Eosinophils % 2.7 % (0.1-12.0); Hematocrit 35.8 % (37.0-47.0); Hemoglobin 12.6 g/dL (12.2-16.2); Lymphocytes # 2.5 K/mm3 (0.7-4.5); Lymphocytes % 19.8 % (10-50); Mean Corpuscular HGB Conc 35.2 g/dL (31.8-35.4); Mean Corpuscular Hemoglobin 33.9 pg (27.0-31.2); Mean Corpuscular Volume 96.2 fl (81-99); Mean Platelet Volume 9.5 fl (7.4-10.4); Monocytes # 1.1 K/mm3 (0.1-1.0); Monocytes % 8.6 % (1.7-9.3); Neutrophils # 8.5 K/mm3 (1.8-7.8); Neutrophils % 67.6 % (37.0-80.0); Nucleated Red Blood Cells # 0 10^3/uL; Nucleated Red Blood Cells % 0 %; Platelet Count 411 K/mm3 (142-424); Red Blood Count 3.72 M/mm3 (4.20-5.40); Red Cell Distribution Width 12.2 % (11.5-17.5); Red Cell Distribution Width-SD 43.4 fL; White Blood Count 12.5 K/mm3 (4.8-10.8)
[2025-02-27 11:38] LABS: Alanine Aminotransferase 22 U/L (12-78); Albumin/Globulin Ratio 1.7 (1.1-1.8); Alkaline Phosphatase 67 U/L (38-126); Anion Gap 6.3 mEq/L (5-15); Aspartate Amino Transferase 28 U/L (14-36); Bilirubin,Total 0.6 mg/dl (0.2-1.3); Blood Urea Nitrogen 11 mg/dl (7-17); Calcium 9.3 mg/dl (8.4-10.2); Carbon Dioxide 29 mmol/L (22.0-30.0); Chloride 98 mmol/L (98-107); Chol/HDL Ratio 2.4 (1-3.5); Cholesterol 135 mg/dl (140-200); Estimated Glomerular Filt Rate 99 ml/min (>60); GFR (African American) 120 ML/MIN (>60); Globulin 2.3 g/dL (1.3-3.2); Glucose 93 mg/dl (74-100); HDL Cholesterol 57 mg/dl (40-60); Magnesium 1.7 mg/dl (1.6-2.3); Potassium 4.3 mmoL/L (3.5-5.1); Sodium 129 mmol/L (136-145); Total Protein,Serum 6.3 g/dl (6.3-8.2); Triglycerides 74 mg/dl (30-150); VLDL Cholesterol 15 mg/dL (0-40)
[2025-02-27 11:46] LABS: Hemoglobin A1C 5.5 % (4.0-6.0)
[2025-02-27 11:49] LABS: Direct LDL Cholesterol 52.64 mg/dL (100-129)
[2025-02-27 11:50] LABS: Free Thyroxine Index 3.7 ug/dL (5.93-13.13); T4 (Thyroxine) 10.8 ug/dl (5.53-11.0); Triiodothryronine (T3) Uptake 34 % (23.5-40.5)
[2025-02-27 11:53] LABS: 25-OH Vitamin D, Total 64.2 ng/mL (30-100)
[2025-02-27 12:03] LABS: Thyroid Stimulating Hormone 0.99 uIU/mL (0.465-4.68)
[2025-02-27 12:30] LABS: Vitamin B12 > 1000 pg/mL (239-931)
[2025-02-28 11:27] LABS: Antinuclear Antibodies (ANA) Negative (Negative)
== END 2025-02-27 23:59 | disposition home or self-care (01) ==
PROVIDERS: PCP Nurse Practitioner; Visit Provider Nurse Practitioner
DX: I10 Essential (primary) hypertension; R39.9 Unspecified symptoms and signs involving the genitourinary system; R79.89 Other specified abnormal findings of blood chemistry; E53.8 Deficiency of other specified B group vitamins; E78.5 Hyperlipidemia, unspecified; M79.661 Pain in right lower leg; M79.662 Pain in left lower leg
CPT/HCPCS: 36415; 73590; 80053; 80061; 82306; 82607; 82746; 83036; 83735; 84436; 84443; 84479; 85025; 86038

== ENCOUNTER 2025-03-15 09:32 | Outpatient (CLI) | payer BC, SELFPAY ==
--- NOTE | 2025-03-15 09:35 | CT_ITS ---
FINAL REPORT TECHNIQUE: Axial images were obtained from the lung apex to the mid abdomen by computed tomography. This study was performed with techniques to keep radiation doses as low as reasonably achievable (ALARA). Individualized dose reduction techniques using automated exposure control or adjustment of mA and/or kV according to the patient's size were employed. CLINICAL HISTORY: SCREENING current smoker 1ppd x54 years COMPARISON: 01/08/2024 FINDINGS: CHEST CT LOW DOSE CTDI vol (mGy): 2.90 DLP (mGy-cm): 97.68 There is no axillary adenopathy. There is no hilar or mediastinal adenopathy. The heart is normal in size. There is no pericardial or pleural effusion. There is a stable noncalcified nodule in the left upper lobe measuring 6 mm in greatest dimension. Finding is best seen on image 17 of series 4. There is also a stable noncalcified nodule in the anterior right middle lobe measuring 3 mm. Finding is best seen on image 48 of series 4. Limited images of the upper abdomen are unremarkable. IMPRESSION: Stable nodules as detailed above. Lung RADS category 2. Recommend 12 month follow-up low-dose chest CT. Reviewed, Interpreted and Dictated by Irving Hopson MD Transcribed by Kathi Phoenix Authenticated and [facility]
--- NOTE | 2025-03-15 09:35 | MM_ITS ---
PROCEDURE INFORMATION: Exam: MG Bilateral Screening 3D Mammography Exam date and time: 03/15/2025 9:42 AM Age: 69 years old Clinical indication: Screening examination TECHNIQUE: Imaging protocol: Bilateral Screening tomosynthesis and 2D mammography including computer-aided detection (CAD) when performed. COMPARISON: 1. MG MM DIG SCREENING MAMM BI W/CAD 01/08/2024 9:55 AM 2. MG MM DIG SCREENING MAMM BI W/CAD 10/28/2022 10:30 AM FINDINGS: MAMMOGRAPHY: Breast composition: There are scattered areas of fibroglandular density. Mass: None. Architectural distortion: None. Calcifications: No suspicious calcifications. Asymmetric density: None. Skin thickening: None. Axillary adenopathy: None. IMPRESSION: No mammographic evidence of malignancy. Annual screening is recommended unless otherwise clinically indicated. ASSESSMENT: BI-RADS Category 1: Negative.
== END 2025-03-15 23:59 | disposition home or self-care (01) ==
LOC: RAD 09:32
PROVIDERS: PCP Nurse Practitioner; Visit Provider Nurse Practitioner
DX: Z12.31 Encounter for screening mammogram for malignant neoplasm of breast (principal); Z12.2 Encounter for screening for malignant neoplasm of respiratory organs; R91.8 Other nonspecific abnormal finding of lung field
CPT/HCPCS: 71271; 77063; 77067

== ENCOUNTER 2025-04-26 08:15 | Outpatient (CLI) | payer BC, SELFPAY ==
--- OUTSIDE RECORDS SUMMARY | 2025-04-26 08:18 | XMS_ITS | Data Portability ---
Author Organization [facility] Address [address] [place] [address] Care Team Providers Care Sales Representative Aircraft Name Role Phone SHILOH DUNLAP Referring Provider Assessment Encounter Date Assessment Date Assessment LastModified by Organization Details LastModified Time 08/26/2024 08/26/2024 HPI: This is a 69-year-old female with chronic back and leg pain She has chronic back and leg pain, pain radiates down both legs to the calves. Denies incontinence or myelopathy. Prior injection therapy includes GITA around 9 years ago with good benefit. She recently saw another pain doctor, who performed an interlaminar GITA at L3-4 which was not beneficial. No prior back surgery. She was reportedly a candidate for lumbar fusion in the remote past. Her back pain is her worst complaint, this worsens with forward flexion. MRI reviewed today. Anticoagulants: ASA 81 mg PMHx: Hypertension, hyperlipidemia, active smoker INJ Hx: GITA's in the past with good benefit PSHx/Surgical Evaluation: No prior back surgery IMAGING: MRI lumbar spine personally reviewed today Retrolisthesis of L4 and L5 Modic 2 endplate changes L4-S1 Multilevel spondylosis and disc bulges with moderate canal and foraminal stenosis The above image findings were discussed with the patient. Current medications include prednisone. The patient feels that they receive adequate analgesia and activity improvement with the medication. The patient denies side effects from the medications. UDS was not obtained. ORT, PHQ-9 and JIMENA were reviewed today. NICHOLAS report was reviewed today and is appropriate. Based upon the above I would consider the patient to be Moderate risk. PT The patient completed over six weeks of physical therapy in the past without benefit for their pain ASSESSMENT/PLAN This is a 69-year-old female with chronic back and leg pain She has chronic low back and leg pain. I recommend lumbar flexion-extension x-ray, bilateral L5-S1 transforaminal GITA for radicular pain, and Intracept for chronic axial back pain. Intracept procedure has been recommended to the patient as a potential therapy. -The patient's pain has been present for at least 6 months. -Pain impacts daily activities including home chores and recreational activities. -The patient reports VAS score which can reach up to 10/10. -Modic endplate changes are seen on MRI per review as above. -Previous treatments have included injection therapy, multiple classes of medications, and physical therapy. -The patient has attempted lifestyle modification including exercises and stretching for the low back without benefit I feel that the patient could benefit from Intracept at the following levels: L4/5and L5/S1. I attest to the absence of untreated, underlying mental health conditions or problems, including depression, drug or alcohol abuse, and anxiety as a major contributor to chronic back pain. The patient is also mentally sound and willing to proceed with the Intracept procedure. External records were reviewed and discussed as above, including imaging, clinical notes, and relevant labs. Much of this encounter is an electronic goring cutter/tra nslation of spoken language to printed text. The electronic translation of spoken language may permit erroneous or at times nonsensical words of phrases to be inadvertently transcribed; Although I have reviewed the note for such errors, some may still exist. Not available 08/26/2024 17:14:28 12/16/2024 12/16/2024 Interval history : The patient follows up for reassessment She underwent bilateral L5-S1 transforaminal GITA, given short-term benefit, since her last visit, her legs have become more weak. We obtain lumbar flexion-extension x-ray at initial visit, this demonstrated instability in the upper lumbar spine. Her Intracept procedure was denied. HPI: This is a 69-year-old female with chronic back and leg pain She has chronic back and leg pain, pain radiates down both legs to the calves. Denies incontinence or myelopathy. Prior injection therapy includes GITA around 9 years ago with good benefit. She recently saw another pain doctor, who performed an interlaminar GITA at L3-4 which was not beneficial. No prior back surgery. She was reportedly a candidate for lumbar fusion in the remote past. Her back pain is her worst complaint, this worsens with forward flexion. MRI reviewed today. Anticoagulants: ASA 81 mg PMHx: Hypertension, hyperlipidemia, active smoker INJ Hx: GITA's in the past with good benefit PSHx/Surgical Evaluation: No prior back surgery IMAGING: MRI lumbar spine personally reviewed today Retrolisthesis of L4 and L5 Modic 2 endplate changes L4-S1 Multilevel spondylosis and disc bulges with moderate canal and foraminal stenosis Lumbar flex ex 11/2024 [facility] Multiple levels of movement in the upper lumbar spine that change with flexion and extension The above image findings were discussed with the patient. Current medications include prednisone. The patient feels that they receive adequate analgesia and activity improvement with the medication. The patient denies side effects from the medications. UDS was not obtained. ORT, PHQ-9 and JIMENA were reviewed today. NICHOLAS report was reviewed today and is appropriate. Based upon the above I would consider the patient to be Moderate risk. PT The patient completed over six weeks of physical therapy in the past without benefit for their pain ASSESSMENT/PLAN This is a 69-year-old female with chronic back and leg pain Given her worsening weakness in the legs, I will refer her back to [facility] for fusion evaluation. Lumbar flexion-extension x-ray was obtained at [facility] and reviewed today. External records were reviewed and discussed as above, including imaging, clinical notes, and relevant labs. Much of this encounter is an electronic goring cutter/tra nslation of spoken language to printed text. The electronic translation of spoken language may permit erroneous or at times nonsensical words of phrases to be inadvertently transcribed; Although I have reviewed the note for such errors, some may still exist. Not available 12/16/2024 13:42:10 Plan of Treatment Reminders Order Date Submit Date Provider Last Modified By Organization Details Last Modified Time Details Appointments None recorded. Lab methicilli n resistant staphyloco ccus aureus, culture, nasal - additional dx: Z22.322 2023 024 [email or web address] [facility], [facility], [address] [place] [address], [id number], 01/07/202 5 15:32:37 HbA1c (hemoglobi n A1c), blood - additional dx: 250.00 2023 024 [email or web address] [facility], [facility], [address] [place] [address], [address], 5 15:32:32 Referral orthopedic spine surgeon referral - has been evaluated in past, new unstable spondy found on flex/ex, worsening leg pain, minimal benefit from TFESI. Eval for fusion. 2024 025 [email or web address] Nuvia lynn MD, [address] [place], [address], 5 15:13:52 Procedures remote therapeuti c monitoring to monitor musculoske letal system (PROC) - Patient prescribed RTM (Remote Therapeuti c Monitoring ) to prevent further functional decline and monitor treatment effectiven ess. Patient will complete medication tracking and physical therapy exercises as instructed . Monitoring to take place over the next 12 months using the CP&S [place] to also include functional assessment s as well as daily pain scores. Patient consent obtained and device provided. 2023 024 [email or web address] Not available 4 08:04:44 injection, transforam inal epidural, lumbar (PROC) - #1 TFESI John L5-S1 with no sed in [place] with Dr. Garcia LUKE 2023 024 [email or web address] Not available 4 13:43:03 Surgeries destructio n of intraosseo us basiverteb ral nerve, including imaging guidance, lumbar/sac rum (SURG) 2023 025 [email or web address] [facility] [place], [address], [address], [place], [address], 5 16:19:45 Imaging XR, lumbosacra l spine, 4 or more view - AP/LAT/EXT /FLEX 2023 024 [email or web address] [facility], [address], [address], [place], [address], 15:29:29 Medication Orders Hibiclens 4 % topical liquid 2023 024 [facility], [address] [place] [address] [place], [place], [id number], 17:32:40 Patient TargetsNo targets recorded. Patient Instructions Encounter Date Encounter Id Patient Instructions Last Modified By Organization Details Last Modified Time 08/26/2024 [id number] [facility] screen* [email or web address] Not available 08/29/2024 10:41:36 back stretches: exercises Not available 08/26/2024 17:14:45 Reason for Referral Orthopedic Spine Surgeon Ref erral for Lumbar radiculopathy has been evaluated in past, new unstable spondy found on flex/ex, worsening leg pain, minimal benefit from TFESI. Eval for fusion. Referring Physician: Bayron Garcia, Pain Management, Encounter Date: 12/16/2024 Results Created Date Observation Date Name Description Value Unit Range Abnormal Flag Note LastModifiedBy Organization Detail LastModifiedTime 08/26/2008/26/2024 XR, lumbo sacra l spine , 4 or more view No observ ation record ed. [email or web address] [facility] ([facility]) [address], [place], [address], 08/26/2024 17:10:54 08/29/2010/28/2023 MRI, lumba r spine , w/o contr ast No observ ation record ed. [email or web address] Not Available 2023 15:41:20 Result Notes None recorded. Problems Name Problem SNOMED Code Status Onset Date Resolution Date Notes Provider Name and Address Organization Details Recorded Time Lumbar radiculopathy 850438354 Active 2023 NINI Delgado - [facility] 4 09:02:58 Lumbar spondylosis 462017022 Active 2023 NINI Delgado - [facility] 4 09:02:58 Chronic pain 95433286 Active 2023 NINI Delgado - [facility] 4 09:02:58 Overweight 789845730 Active 2023 NINI Delgado - [facility] 4 09:03:01 Chronic low back pain 347747582 Active 2023 NINI Delgado - [facility] 4 10:09:18 Problem Notes None recorded. Procedures Surgical History Date Name Laterality Status Provider Name and Address Organization Details Recorded Time 09/20/20 24 Lumbar Transforaminal Epidural Steroid Injection (1 Level Bilateral): completed Farhana Darryl NINI - [facility] 09/20/2024 09:51:58 procedure on gallbladder completed Farhana Houston NINI - [facility] 08/26/2024 10:19:17 Imaging Results None recorded. Procedure Notes None recorded. Medical Equipment None Reported. Allergies Allergen ID Allergen Name Allergen Category Reaction Reaction Severity Criticality Documentation Date Start Date Code Code System Note Provider Name and Address Organization Details Recorded Time 796858 tramadol medicatio n Not available Not available Not available 08/26/2024 63098 RxNorm NINI Delgado - [facility] 4 09:08:40 521094 Levaquin medicatio n Not available Not available Not available 08/26/2024 60771 2 RxNorm NINI Delgado - [facility] 4 09:08:52 307751 Biaxin medicatio n Not available Not available Not available 08/26/202410545 9 RxNorm NINI Delgado - [facility] 4 09:09:04 Medications Name Sig Start Date Stop Date Status Note LastModified by Organization Details LastModified Time albuterol sulfate 0.63 mg/3 mL solution for nebulizat ion active Not Available Not Available Not Available clonidine HCl 0.1 mg tablet active Not Available Not Available No t Available prednison e 10 mg tablet TAKE FOUR TABLETS BY MOUTH EVERY DAY FOR 3 DAYS THEN 2 TABLETS EVERY DAY FOR 3 DAYS THEN 1 TABLET EVERY DAY FOR 3 DAYS THEN STOP 08/26 completed Not Available Not Available Not Available doxycycli ne hyclate 100 mg capsule TAKE ONE CAPSULE BY MOUTH EVERY TWELVE HOURS AT 9am AND 9pm FOR 10 DAYS -- FINISH ALL MEDICINE -- 08/26 completed Not Available Not Available Not Available cetirizin e 10 mg tablet 08/26 completed Not Available Not Available Not Available pravastat in 40 mg tablet active Not Available Not Available Not Available albuterol sulfate 1.25 mg/3 mL solution for nebulizat ion USE 3 ML IN NEBULIZE R 4 TIMES DAILY NEEDED FOR SHORTNES S OF BREATH FOR WHEEZING active Not Available Not Available No t Available prednison e 20 mg tablet TAKE 3 TABLETS BY MOUTH ONCE DAILY active Not Available Not Available No t Available amlodipin e 5 mg tablet 08/26 completed Not Available Not Available Not Available aspirin 81 mg tablet,de layed release active Not Available Not Available Not Available bisoprolo l fumarate 5 mg tablet TAKE 1 TABLET BY MOUTH TWICE DAILY FOR BLOOD PRESSURE active Not Available Not Available No t Available amoxicill in 875 mg tablet TAKE ONE TABLET BY MOUTH EVERY TWELVE HOURS -- FINISH ALL MEDICINE -- 08/26 completed Not Available Not Available Not Available amlodipin e 10 mg tablet active Not Available Not Available Not Available benzonata te 100 mg capsule TAKE ONE CAPSULE BY MOUTH THREE TIMES DAILY NEEDED FOR cough 08/26 completed Not Available Not Available Not Available prednison e 50 mg tablet TAKE 1 TABLET BY MOUTH ONCE DAILY FOR 5 DAYS 08/26 completed Not Available Not Available Not Available nicotine 21 mg/24 hr daily transderm al patch 21 MG transder chapincito daily as needed as needed FOR nicotine cravings active Not Available Not Available No t Available verapamil ER (PM) 100 mg capsule 24hr pellet CT,ext.re lease TAKE 1 CAPSULE BY MOUTH AT BEDTIME NIGHTLY 08/26 completed Not Available Not Available Not Available hydrochlo rothiazid e 25 mg tablet TAKE ONE TABLET BY MOUTH EVERY DAY active Not Available Not Available No t Available zolpidem 5 mg tablet TAKE 1 TABLET BY MOUTH ONCE DAILY AT BEDTIME active Not Available Not Available No t Available mirtazapi ne 15 mg tablet TAKE ONE TABLET BY MOUTH EVERY DAY AT BEDTIME 08/26 completed Not Available Not Available Not Available levofloxa katy 750 mg tablet TAKE 1 TABLET BY MOUTH ONCE DAILY FOR 7 DAYS 08/26 completed Not Available Not Available Not Available methylpre dnisolone 4 mg tablets in a dose pack TAKE BY MOUTH DIRECTED ON INSIDE OF PACKAGE 08/26 completed Not Available Not Available Not Available albuterol sulfate HFA 90 mcg/actua tion aerosol inhaler INHALE 1 PUFF BY MOUTH EVERY 4 HOURS NEEDED active Not Available Not Available No t Available doxycycli ne hyclate 100 mg tablet 100 MG orally twice a DAY FOR 5 DAYS active Not Available Not Available No t Available Hibiclens 4 % topical liquid Wash back night before and the morning of surgery 2023 active Intracep t Not Available Not Available Not Available oxycodone 5 mg tablet TAKE ONE TABLET BY MOUTH EVERY 4 HOURS NEEDED FOR PAIN MAY CAUSE DROWSINE SS 08/26 completed Not Available Not Available Not Available olmesarta n 40 mg tablet active Not Available Not Available Not Available olmesarta n 20 mg-hydroc hlorothia zide 12.5 mg tablet active Not Available Not Available No t Available cholecalc iferol (vitamin D3) 1,250 mcg (50,000 unit) capsule TAKE ONE CAPSULE BY MOUTH twice a WEEK DIRECTED active Not Available Not Available No t Available Vitamin B-12 5,000 mcg sublingua l tablet TAKE ONE TABLET BY MOUTH EVERY DAY active Not Available Not Available No t Available Linzess 145 mcg capsule TAKE ONE CAPSULE BY MOUTH EVERY DAY active Not Available Not Available No t Available Anoro Ellipta 62.5 mcg-25 mcg/actua tion powder for inhalatio n INHALE 1 PUFF BY MOUTH ONCE DAILY active Not Available Not Available No t Available guaifenes in ER 600 mg tablet, extended release 12 hr TAKE 1 OR 2 TABLET(S ) BY MOUTH TWICE DAILY NEEDED FOR congesti on 08/26 completed Not Available Not Available Not Available Trelegy Ellipta 200 mcg-62.5 mcg-25 mcg powder for inhalatio n INHALE 1 PUFF BY MOUTH ONCE DAILY active Not Available Not Available No t Available Vitals Date Recorded Body height Body mass index (BMI) Body weight Oxygen saturation Oxygen saturation in Arterial blood by Pulse oximetry Heart rate Systolic blood pressure Diastolic blood pressure Provider Name and Address Organization Details Last Updated DateTime 5 165.1 cm 28.5 kg/m2 79472.3 g 97 % 97 % 75 /min 131 mm[Hg] 80 mm[Hg] Yara Richards [facility] 5 11:13:54 Date Recorded Body height Body mass index (BMI) Body weight Oxygen saturation Oxygen saturation in Arterial blood by Pulse oximetry Heart rate Systolic blood pressure Diastolic blood pressure Provider Name and Address Organization Details Last Updated DateTime 4 165.1 cm 28.3 kg/m2 43817.7 g 95 % 95 % 62 /min 120 mm[Hg] 71 mm[Hg] Luisa Vivas [facility] 4 09:08:33 Social History Question Answer Notes LastModified by [employer] Details LastModified Time Tobacco Smoking Status Current Every Day Smoker Farhana lundberg [facility] 08/26/2024 10:18:30 Do You Have An Advance Directive? No Information not available 08/26/2024 What Type Of Diet Are You Following? REGULAR Information not available 08/26/2024 Do You Have Knee Pain? No Information not available 08/26/2024 Have You Had A Knee Replacement? No Information no t available 08/26/2024 Is Your Knee Pain Being Treated By Someone Else? No Information not available 08/26/2024 Are You Interested In Consulting Us For Your Knee Pain? No Information not available 08/26/2024 Do You Have A Medical Power Of Pediatric Physiatrist? No Information not available 08/26/2024 What Was The Date Of Your Most Recent Tobacco Screening? 08/26/2024 Information not available 08/26/2024 What Is Your Relationship Status? Information not available 08/26/2024 Sex: Unknown Functional Status Question Answer Note LastModified by Organizat ion Details LastModified Time Do you use any illicit or recreational drugs? No Information not available 08/26/2024 What is your level of alcohol consumption? None Information not available 08/26/2024 Are you currently employed? No Information not available 08/26/2024 Are you able to walk? YESWOREST Information not available 08/26/2024 What is your exercise level? Occasional Information not available 08/26/2024 Mental Status None recorded. Family History Relationship Description Onset Age of this Age Resolved Age Notes LastModified by Organization Details LastModified Time Father No current problems or disability Not available 08/26 10:16:51 Mother No current problems or disability Not available 08/26 10:16:51 Medical History Condition Response Bipolar Disease N Coronary Artery Disease N Seizure Disorder N Gout N Atrial Fibrillation N Thyroid Disease N Hernia N Head Trauma/Injury N COPD N Depression Y Anxiety Disorder N Acid Reflux (GERD) N Cancer N Skin Disorder N Stroke N High Cholesterol Y Liver Disease N Rheumatoid Arthritis N Headaches N Fibromyalgia N Autoimmune Disease N Kidney Disease N Osteoarthritis N Neurosurgery N DVT N Peptic Ulcer Disease N Anemia N Heart Attack ([place]) N Diabetes N Cardiomyopathy N Bleeding Disorder N CHF N AIDS/HIV N Inflammatory Bowel Disease N Dementia N Asthma N Substance Abuse N Sleep Apnea Y Hepatitis N Heart Disease Y Pulmonary Embolism N Chronic Low Back Pain Y Hypertension Y Osteoporosis N Gynecological HistoryNo gynecological history recorded. Obstetrics History GPAL:G 0 P 0 0 0 0 Past Encounters Encounter ID Performer Location Encounter Start Date Encounter Closed Date Diagnosis/Indication Diagnosis SNOMED-CT Code Diagnosis ICD10 Code Diagnosis Note [id number] MD [facility] [address] [place] [address] 08/26/2024 08:31:18 08/29/2024 09:09:04 Lumbar radiculopathy 233261186 M54.16 Chronic pain 92494613 G8 9.29 Chronic low back pain 27 6722377 M54.51 [id number] MD [facility] [address] [place] [address] 09/20/2024 08:08:04 09/20/2024 09:49:16 Lumbar radiculopathy 555288011 M54.16 [id number] BAYRON GARCIA MD [facility] [address] [place] [address] 12/16/2024 10:38:46 12/16/2024 14:42:47 Chronic pain 40209871 G89.29 Lumbar radiculopathy 128 643239 M54.16 Health Concerns Section Related Observation LastModified by Organization Detai ls LastModified Time None Recorded Concern Status LastModified by Organization Details LastModified Time None Recorded Advance Directives Directive N: Payers Insurance Date Sequence Insurance Name Policy Number Policy Roberts Covered Member ID Roberts Member ID Guarantor Name 12/16/2024 1 [id number]) [id number] Efra Beyer [id number] [place] Notes Date Note Type Note Provider Name and Address Organization Details Recorded Time 08/26/2024 text/html Low back painRep orted bypatient.Onset:date of onset: (2021) Location:midline; paraspinal: bilateral; buttock: bilateral; radiating down the bilateral lower extremity to the foot Duration:varies throughout the day; worse during the day Context:overuse; lifting Quality:aching; burning; gnawing; stabbing; throbbing; sharp; worsening Pain Intensitycurrent pain level: 8/10; average pain level: 8/10; worst pain level: 10/10 Alleviating Factors:heat Aggravating Factors:sitting; standing; lying down; walking; lifting; carrying; twisting; bending/squatting Associated Symptoms:weakness;num bness;tingling Functional Assessment of ADLsLiving independently.; Able to bathe/groom without assistance.;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 Prior Imaging:MRI ([facility] - 10/28/23); 10/28/2023 MRI of Lumbar spine [facility] Lumbar Surgery:none Interventional Treatment History:lumbar ESIs: no relief Physical Therapy:Facility: ([place] [id number]); PT discontinued by therapist/physician; complete 6weeks; dates: (05/11/2024 to 07/22/2024); response to therapy: no improvement in pain/symptoms Medications History:NSAIDs: (Ibuprofen 800 mg - not effective); Muscle relaxants: (Flexeril) Adverse Reactions:No nausea; No vomiting; No constipation; No itching Other Conservative Treatments:heat: effective Prior Pain Management:yes: ([facility]) Oswestry Disability Index (JIMENA)Score/Date Completed: (52 08/26/24) For Female Patients:Are you ? No New patient referred by for Low back pain. BAYRON GARCIA MD [address] [place] [address], [address], [facility] 08/26/2024 17:14:50 12/16/2024 text/html Low back painRep orted bypatient.Onset:date of onset: (2021) Location:midline; paraspinal: bilateral; buttock: bilateral; radiating down the bilateral lower extremity to the foot Duration:varies throughout the day; worse during the day Context:overuse; lifting Quality:aching; burning; gnawing; stabbing; throbbing; sharp; worsening Pain Intensitycurrent pain level: 8/10; average pain level: 8/10; worst pain level: 10/10 Alleviating Factors:heat Aggravating Factors:sitting; standing; lying down; walking; lifting; carrying; twisting; bending/squatting Associated Symptoms:weakness;num bness;tingling Functional Assessment of ADLsLiving independently.; Able to bathe/groom without assistance.;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 Prior Imaging:MRI ([facility] - 10/28/23); 10/28/2023 MRI of Lumbar spine [facility] Lumbar Surgery:none Interventional Treatment History:lumbar ESIs: no relief Physical Therapy:Facility: ([place] [id number]); PT discontinued by therapist/physician; complete 6weeks; dates: (05/11/2024 to 07/22/2024); response to therapy: no improvement in pain/symptoms Medications History:NSAIDs: (Ibuprofen 800 mg - not effective); Muscle relaxants: (Flexeril) Adverse Reactions:No nausea; No vomiting; No constipation; No itching Other Conservative Treatments:heat: effective Prior Pain Management:yes: ([facility]) Oswestry Disability Index (JIMENA)Score/Date Completed: (52 08/26/24) For Female Patients:Are you ? No BAYRON GARCIA MD [address] [place] [address], [id number], [facility] 12/16/2024 13:43:16 OBGyn Episode No OBEpisode recorded.
--- OUTSIDE RECORDS SUMMARY | 2025-04-26 08:18 | XMS_ITS | Continuity of Care Document ---
Author Organization [place] - [facility] & [place], [facility] Address [address] [facility] [address] [place] [address] Care Team Providers Care Stemmer Machine Name Role Phone SHILOH DUNLAP Primary Care Provider Assessment Encounter Date Assessment Date Assessment LastModified by Organization Details LastModified Time 04/25/2025 04/25/2025 69-year-old female with generalized abdominal pain, poor appetite, rectal bleeding, and significant constipation Not available 04/25/2025 10:12:13 Plan of Treatment Reminders Order Date Submit Date Provider Last Modified By Organization Details Last Modified Time Details Appointments SURGERY 15 2024 09:00A M Norman Sandra MD Not available Not available Not available OV EST 30 2024 08:30A M Kassandra Alex PA-C Not available Not available Not available Establish ed Visit 15 min 2024 09:30A M Nikos Higginbotham PA-C Not available Not available Not available Lab None recorded. Referral None recorded. Procedures None recorded. Surgeries None recorded. Imaging None recorded. Medication Orders lubiprost one 24 mcg capsule 2024 025 [facility] [place], [address], 04/25/2025 09:41:00 hydrocort isone 2.5 % topical cream with perineal applicato r 2024 025 [facility] [address] [place], [address], 04/25/2025 09:40:59 Patient TargetsNo targets recorded. Patient InstructionsNo instructions recorded. Reason for Referral None Reported. Problems Name Problem SNOMED Code Status Onset Date Resolution Date Notes Provider Name and Address Organization Details Recorded Time Chronic idiopathic constipati on 31329647 Active 2024 Nikos Higginbotham PA-C [address], [place], [address] , [place] - [facility] - [place] & [place] 5 09:32:05 Blood-ting ed feces 7867600060705 02 Active 2024 Nikos Higginbotham PA-C [address], [place], [place], [address] [place] [address] , [place] - [facility] & [place] 09:32:10 Hemorrhoid s 80769041 Active 2024 Nikos Higginbotham PA-C [address], [place], [address] , [place] - [facility] & [place] 09:32:18 Decrease in appetite 19261247 Active 2024 Nikos Higginbotham PA-C [address], [place], [address] , [place] [facility] & [place] 09:34:40 Generalize d abdominal pain 713413435 Active 2024 Nikos Higginbotham PA-C [address], [place], [place], [address] [place] [address] , [place] [facility] & [place] 09:35:09 Problem Notes None recorded. Procedures Surgical History Date Name Laterality Status Provider Name and Address Organization Details Recorded Time 03/22/20 25 Venipuncture completed Danna TERRAZAS - [facility] & [place] 03/22/2025 09:33:48 total hysterectomy completed Karlee TERRAZAS - [facility] & [place] 03/22/2025 09:02:54 cholecystectomy completed Char Borrero [facility] & [place] 03/22/2025 09:03:05 colonoscopy completed Char RIVERA [facility] & [place] 03/22/2025 09:03:38 Imaging Results None recorded. Procedure Notes None recorded. Medical Equipment None Reported. Allergies Allergen ID Allergen Name Allergen Category Reaction Reaction Severity Criticality Documentation Date Start Date Code Code System Note Provider Name and Address Organization Details Recorded Time 917534 tramadol medicatio n Not available Not available [facility] 03/22/2025 91854 RxNorm NINI Valentino [facility] & [place] 5 08:54:39 500413 Bactrim medicatio n Not available Not available [facility] 03/22/2025 14962 9 RxNorm NINI Valentino [facility] & [place] 5 08:54:57 749444 levofloxa katy medicatio n Not available Not available [facility] 03/22/2025 18290 RxNorm Char lundberg NINI Borrero [facility] & [place] 5 08:57:05 Medications Name Sig Start Date Stop Date Status Note LastModified by Organization Details LastModified Time prednisone 10 mg tablet TAKE FOUR TABLETS BY MOUTH EVERY DAY FOR 3 DAYS THEN 2 TABLETS EVERY DAY FOR 3 DAYS THEN 1 TABLET EVERY DAY FOR 3 DAYS THEN STOP 03/22 completed Not Available Not Available Not Available doxycycline hyclate 100 mg capsule TAKE ONE CAPSULE BY MOUTH EVERY TWELVE HOURS AT 9am AND 9pm FOR 10 DAYS -- FINISH ALL MEDICINE -- 03/22 completed Not Available Not Available Not Available cetirizine 10 mg tablet 03/22 completed Not Available Not Available Not Available pravastatin 40 mg tablet active Not Available Not Available Not Available albuterol sulfate 1.25 mg/3 mL solution for nebulizatio n USE 3 ML IN NEBULIZER 4 TIMES DAILY NEEDED FOR SHORTNESS OF BREATH FOR WHEEZING active Not Available Not Available No t Available prednisone 20 mg tablet TAKE 3 TABLETS BY MOUTH ONCE DAILY active Not Available Not Available No t Available amlodipine 5 mg tablet active Not Available Not Available Not Available ciprofloxac in 500 mg tablet TAKE 1 TABLET BY MOUTH TWICE DAILY FOR 10 DAYS active Not Available Not Available No t Available aspirin 81 mg tablet,marie yed release active Not Available Not Available Not Available doxycycline monohydrate 100 mg tablet TAKE 1 TABLET BY MOUTH TWICE DAILY FOR 10 DAYS 03/22 completed Not Available Not Available Not Available bisoprolol fumarate 5 mg tablet TAKE 1 TABLET BY MOUTH TWICE DAILY FOR BLOOD PRESSURE active Not Available Not Available No t Available hydrocortis one 2.5 % topical cream with perineal applicator APPLY A THIN LAYER TO THE AFFECTED AREA(S) BY TOPICAL ROUTE 2-4 TIMESDAIL Y 2024 active Not Available Not Available Not Avai lable alprazolam 0.5 mg tablet TAKE 1 TABLET BY MOUTH TWICE DAILY active Not Available Not Available No t Available amoxicillin 875 mg tablet TAKE ONE TABLET BY MOUTH EVERY TWELVE HOURS -- FINISH ALL MEDICINE -- 03/22 completed Not Available Not Available Not Available amlodipine 10 mg tablet 03/22 completed Not Available Not Available Not Available benzonatate 100 mg capsule TAKE ONE CAPSULE BY MOUTH THREE TIMES DAILY NEEDED FOR cough 03/22 completed Not Available Not Available Not Available triamcinolo ne acetonide 0.1 % topical ointment USE TWICE DAILY ON THE EXTERNAL EAR 03/22 completed Not Available Not Available Not Available prednisone 50 mg tablet TAKE 1 TABLET BY MOUTH ONCE DAILY FOR 5 DAYS 03/22 completed Not Available Not Available Not Available nicotine 21 mg/24 hr daily transdermal patch 21 MG transderm ally daily as needed as needed FOR nicotine cravings active Not Available Not Available No t Available verapamil ER (PM) 100 mg capsule 24hr pellet CT,ext.rele ase TAKE 1 CAPSULE BY MOUTH AT BEDTIME NIGHTLY 03/22 completed Not Available Not Available Not Available hydrochloro thiazide 25 mg tablet TAKE ONE TABLET BY MOUTH EVERY DAY active Not Available Not Available No t Available zolpidem 5 mg tablet TAKE 1 TABLET BY MOUTH ONCE DAILY AT BEDTIME 03/22 completed Not Available Not Available Not Available mirtazapine 15 mg tablet TAKE ONE TABLET BY MOUTH EVERY DAY AT BEDTIME 03/22 completed Not Available Not Available Not Available ibuprofen 600 mg tablet TAKE 1 TABLET BY MOUTH EVERY 6 HOURS NEEDED FOR MODERATE PAIN 03/22 completed Not Available Not Available Not Available levofloxaci n 750 mg tablet TAKE 1 TABLET BY MOUTH ONCE DAILY FOR 7 DAYS 03/22 completed Not Available Not Available Not Available methylpredn isolone 4 mg tablets in a dose pack TAKE BY MOUTH DIRECTED ON INSIDE OF PACKAGE 03/22 completed Not Available Not Available Not Available albuterol sulfate HFA 90 mcg/actuati on aerosol inhaler INHALE 1 PUFF BY MOUTH EVERY 4 HOURS NEEDED active Not Available Not Available No t Available fluticasone propionate 50 mcg/actuati on nasal spray,suspe nsion USE 1 SPRAY(S) IN EACH NOSTRIL TWICE DAILY active Not Available Not Available No t Available doxycycline hyclate 100 mg tablet 100 MG orally twice a DAY FOR 5 DAYS 03/22 completed Not Available Not Available Not Available oxycodone 5 mg tablet TAKE ONE TABLET BY MOUTH EVERY 4 HOURS NEEDED FOR PAIN MAY CAUSE DROWSINES S active Not Available Not Available No t Available olmesartan 40 mg tablet active Not Available Not Available Not Available ciprofloxac in 0.3 %-dexametha sone 0.1 % ear drops,suspe nsion INSTILL 4 DROPS INTO AFFECTED EAR(S) TWICE DAILY FOR 7 DAYS active Not Available Not Available No t Available nitrofurant oin monohydrate /macrocryst als 100 mg capsule TAKE 1 CAPSULE BY MOUTH EVERY 12 HOURS FOR 7 DAYS WITH FOOD active Not Available Not Available No t Available lubiproston e 24 mcg capsule Take 1 capsule twice a day by oral route for 30 days. 2024 active Not Available Not Available Not Avai lable Golytely 236 gram-22.74 gram-6.74 gram-5.86 gram oral solution Take as directed per instructi ons given drs office 2024 active Not Available Not Available Not Avai lable cholecalcif vishal (vitamin D3) 1,250 mcg (50,000 unit) capsule TAKE ONE CAPSULE BY MOUTH twice a WEEK DIRECTED 03/22 completed Not Available Not Available Not Available Vitamin B-12 5,000 mcg sublingual tablet TAKE ONE TABLET BY MOUTH EVERY DAY 03/22 completed Not Available Not Available Not Available Linzess 145 mcg capsule TAKE ONE CAPSULE BY MOUTH EVERY DAY active Not Available Not Available No t Available Anoro Ellipta 62.5 mcg-25 mcg/actuati on powder for inhalation INHALE 1 PUFF BY MOUTH ONCE DAILY active Not Available Not Available No t Available guaifenesin ER 600 mg tablet, extended release 12 hr TAKE 1 OR 2 TABLET(S) BY MOUTH TWICE DAILY NEEDED FOR congestio n 03/22 completed Not Available Not Available Not Available Pito Ellipta 200 mcg-62.5 mcg-25 mcg powder for inhalation INHALE 1 PUFF BY MOUTH ONCE DAILY active Not Available Not Available No t Available Vitals Date Recorded Body height Body mass index (BMI) Body weight Body temperature Oxygen saturation Oxygen saturation in Arterial blood by Pulse oximetry Heart rate Systolic blood pressure Diastolic blood pressure Provider Name and Address Organization Details Last Updated DateTime 165.1 cm 28.7 kg/m2 23406.3 2 g 97.2 [degF] 95 % 95 % 72 /min 134 mm[Hg] 72 mm[Hg] Ute Brooks [facility] & [place] 09:08:45 Social History Question Answer Notes LastModified by Organizat ion Details LastModified Time Tobacco Smoking Status Current Every Day Smoker Char Cross [facility], [facility] & [place] 03/22/2025 09:02:39 What Is Your Level Of Caffeine Consumption? Occasional [email or web address] Information not available 03/22/2025 What Was The Date Of Your Most Recent Tobacco Screening? 03/22/2025 Information not available 03/22/2025 At What Age Did You Start Smoking Tobacco? 15 [email or web address] Information not available 03/22/2025 How Much Tobacco Do You Smoke? 0.5 PPD [email or web address] Information not available 03/22/2025 Has Tobacco Cessation Counseling Been Provided? No [email or web address] Information not available 03/22/2025 Sex: Unknown Functional Status Question Answer Note LastModified by Organizat ion Details LastModified Time Do you use any illicit or recreational drugs? No Information not available 03/22/2025 Do you or have you ever used any other forms of tobacco or nicotine? No [email or web address] Information not available 03/22/2025 What is your level of alcohol consumption? None [email or web address] Information not available 03/22/2025 Mental Status None recorded. Family History Relationship Description Onset Age of this Age Resolved Age Notes LastModified by Organization Details LastModified Time Mother Malignant neoplasm of vertebral column [email or web address] Not available 03/22 08:59:33 Mother Cerebrovascu lar accident [email or web address] Not available 09:00:38 Father Malignant neoplasm of prostate [email or web address] Not available 03/22 08:59:55 Brother Malignant neoplasm of prostate mets to Bladde r [email or web address] Not available 03/22/2025 08:59:55 Sister Malignant neoplasm of lung [email or web address] Not available 03/22 09:00:04 Sister Aneurysm [email or web address] Not availab le 03/22/2025 09:01:43 Paternal Uncle Myocardial infarction [email or web address] Not available 03/03 09:01:10 Medical History No medical history recorded. Gynecological HistoryNo gynecological history recorded. Obstetrics History GPAL:G 0 P 0 0 0 0 Immunizations Vaccine Type Date Status Note Provider Nam e and Address Organization Details Recorded Time Influenza, high-dose, quadrivalent, PF 5 [facility] 08:54:06 Influenza, high-dose, quadrivalent, PF 0 completed Char lundberg [facility] & [place] 03/22/2025 08:54:06 COVID-19, mRNA, LNP-S, PF, 100 mcg/0.5mL dose or 50 mcg/0.25mL dose 2 completed Char lundberg [facility] 03/22/2025 08:54:06 COVID-19, mRNA, LNP-S, PF, 100 mcg/0.5mL dose or 50 mcg/0.25mL dose 1 completed Char lundberg [facility] & [place] 03/22/2025 08:54:06 COVID-19, mRNA, LNP-S, PF, 100 mcg/0.5mL dose or 50 mcg/0.25mL dose 1 completed Char lundberg [facility] & [place] 03/22/2025 08:54:06 pneumococcal polysaccharide PPV23 2 completed Char lundberg [facility] & [place] 03/22/2025 08:54:06 Pneumococcal conjugate PCV 13 1 completed Char lundberg, NINI - [facility] - [place] & [place] 03/22/2025 08:54:06 Influenza, high-dose, trivalent, PF 2 completed Char lundberg, NINI - [facility] - [place] & [place] 03/22/2025 08:54:06 Influenza, split virus, quadrivalent, PF 2 completed Char lundberg, NINI - [facility] - [place] & [place] 03/22/2025 08:54:06 Past Encounters Encounter ID Performer Location Encounter Start Date Encounter Closed Date Diagnosis/Indication Diagnosis SNOMED-CT Code Diagnosis ICD10 Code Diagnosis Note [id number] Nikos Higginbotham PA-C [facility] [address] [address] 04/25/2025 08:56:30 04/25/2025 09:59:49 Chronic idiopathic constipation 84205018 K59.04 -Start Lubiprosto ne twice daily. She may use Miralax as needed in addition to this.-Cont inue fiber tablets-We discussed possible benefit of pelvic floor therapy. She states she does not think she can make the appointmen ts due to transporta tion issues. Blood-tinged feces 19635 27464 27917 K92.1 -Colonosco py is scheduled. Treat hemorrhoid s per below. Hemorrhoids 17082991 K64 .9 -Start topical hydrocorti sone. Decrease in appetite 643 43857 R63.0 -Potential ly due to constipati on. EGD has been scheduled. Generalize d abdominal pain 341011678 R10.84 -We will schedule EGD and colonoscop y for further evaluation of her abdominal pain and rectal bleeding Health Concerns Section Related Observation LastModified by Organization Detai ls LastModified Time None Recorded Concern Status LastModified by Organization Details LastModified Time None Recorded Payers Encounter Date Sequence Insurance Name Policy Number Policy Roberts Covered Member ID Roberts Member ID Guarantor Name 04/25/2025 1 [employer] [id number] Efra Beyer [id number] Bhavana Beyer Notes Date Note Type Note Provider Name and Address Organization Details Recorded Time 04/25/2025 text/html Ms. Beyer is a very pleasant 69-year-old female who was referred by Shiloh Dunlap APRN for evaluation of abdominal pain, chronic constipation, and hematochezia. The patient reports that she is experiencing rectal swelling with bleeding hemorrhoids. Preparation-H has been ineffective at managing this. She has very infrequent stools, going 7-10 days between bowel movements. She is taking milk of mag in order to produce a BM. She states she was prescribed different doses of Linzess but it was difficult to tolerate and she had excessive costs with it. Her appetite has been quite poor. She has a history of colonoscopy 12/2021 with external hemorrhoids noted. She has a history of colon polyps. She complains of chronic low back pain and lumbar spinal disease. She states she was referred to pelvic floor therapy, but does not drive so she was unable to schedule this. Nikos Higginbotham PA-C [address] [facility], [place], [address], [place] [facility] & [place] 04/25/2025 10:14:57 OBGyn Episode No OBEpisode recorded.
--- OUTSIDE RECORDS SUMMARY | 2025-04-26 08:19 | XMS_ITS | Referral Summary ---
Author Organization [facility] [employer] Address [address] [place] [address] Care Team Providers Care Cushion Stuffer Name Role Phone Analilia Mayer PA-C Primary Care Provider [phone] Allergies Active Allergy Reactions Criticality Noted Date Comments Sulfamethoxazole-Trimethoprim 2023 UNKNOWN Levofloxacin 06/08/2024 UNKNOWN Tramadol Nausea And Vomiting 06/08/2024 Medications hydroCHLOROthiaz gabriel (HYDRODIURIL) 25 MG tablet Take 1 tablet (25 mg total) by mouth daily. Active bisoprolol (ZEBETA) 5 MG tablet Take 1 tablet (5 mg total) by mouth daily. Active pravastatin (PRAVACHOL) 40 MG tablet Take 1 tablet (40 mg total) by mouth daily. Active olmesartan (BENICAR) 40 MG tablet Take 1 tablet (40 mg total) by mouth daily. Active amLODIPine (NORVASC) 10 MG tablet Take 1 tablet (10 mg total) by mouth daily. Active ALBUTEROL INHL Inhale by mouth via inhaler. Active Social History Tobacco Use Types Packs/Day Years Used Date Smoking Tobacco: Every Day Cigarettes 0.2 40.9 Started: 06/08/1984 Smokeless Tobacco: Never Tobacco Cessation:Ready to Q uit: Not Asked; Counseling Given: Not Answered Alcohol Use Standard Drinks/Week Comments Not Asked 0 (1 standard drink = 0.6 oz pur e alcohol) SOCIALLY Interpersonal Safety Answer Date Record ed Family or friends hurt you Not on file 06/03 Family or friends insult you Not on file 12/2023 Family or friends threaten you Not on file 0 06/03/2024 Family or friends scream or curse at you Not on file 06/03/2024 Food Insecurity Answer Date Recorded Food run out past 12 months Not on file 12/2023 Food did not last past 12 months Not on file 06/03/2024 Employment Answer Date Recorded Help finding and keeping a job Not on file 0 06/03/2024 Family and Community Support Answer Selwyn e Recorded Help with Day to Day Activities Not on file 06/03/2024 Feeling Lonely or Isolated Not on file 06/03 Educational Attainment Answer Date Lamine rded Speak language other than Romansh at home Not on file 06/03/2024 Want help with school or training Not on file 06/03/2024 Depression Answer Date Recorded PHQ-2 Risk Not on file 06/03/2024 Disabilities Answer Date Recorded Difficulty concentrating Not on file 024 Difficulty doing errands alone Not on file 0 06/03/2024 Substance Use Answer Date Recorded Used prescription meds for non-medical reasons N ot on file 06/03/2024 Used illegal drugs past 12 months Not on file 06/03/2024 Comments No Sex and Gender Information Value Date Recorded Sex Assigned at Not on file Legal Sex Female 9:46 AM CDT Gender Identity Not on file Sexual Orientation Not on file Last Filed Vital Signs Vital Sign Reading Time Taken Comments Blood Pressure 114/56 08/05/2024 11:11 AM EDT Pulse 60 08/05/2024 11:11 AM EDT Temperature 36.2 C (97.2 F) 08/05/2024 10:35 AM EDT Respiratory Rate 18 08/05/2024 11:11 AM EDT Oxygen Saturation 100% 08/05/2024 11:11 AM EDT Inhaled Oxygen Concentration - - Weight 74.8 kg (165 lb) 08/05/2024 10:35 AM EDT Height 165.1 cm (5' 5 ) 08/05/2024 10:35 AM EDT Body Mass Index 27.46 08/05/2024 10:35 AM EDT Plan of Treatment Not on file Insurance BLUE CROSS/BLUE SHIELD Care Teams Cushion Stuffer Relationship Specialty Start Date End Date Analilia Mayer PA-C [address] [place] [address] PCP - General Physician Salvage Winder 06/10/24
--- OUTSIDE RECORDS SUMMARY | 2025-04-26 08:20 | XMS_ITS | Clinical Summary ---
Author Organization [employer] Address [address] [place] [address] Care Team Providers Care Video Game Programmer Name Role Phone Analilia Mayer PA-C Primary Care Provider [phone] Allergies Active Allergy Reactions Criticality Noted Date [...] Date Lamine rded Speak language other than Bulgarian at home Not on file 06/03/2024 Want [...] 08/05/2024 10:35 AM EDT Plan of Treatment Health Maintenance Due Date Last Done Comments CT Colonography 1955 Colonoscopy 1955 Colorectal Cancer Screening 1955 DXA SCAN 1955 FOBT/FIT 1955 Fit-DNA (Cologuard) 1955 Sigmoidoscopy 1955 Depression Screening (12+) 1967 Tobacco Cessation Counseling and Screening (12+) 1967 Hepatitis C Screening 1973 DTAP/TDAP/TD VACCINES (1 - Tdap) 1974 Shingles Vaccine (Zoster) (1 of 2) 2005 Breast Cancer Screening 09/16/2020 09/16/20 18, 09/16/2018, 08/14/2017, Additional history exists COVID-19 VACCINE (5 - 2023-2 5 season) 2024 04/06/2024, 11/15/2021, 02/06/2021, Additional history exists Falls Risk Screening 11/02/2024 Influenza Vaccine (Season Ended) 2025 09/23/2022, 09/23/2022, 08/07/2020 Respiratory Syncytial Virus (RSV) Adult or (1 - 1-dose 75+ series) 2030 Pneumococcal 50+ years Completed 09/23/2022, 2020 Insurance BLUE CROSS/BLUE SHIELD Care Teams Video Game Programmer Relationship Specialty Start Date End Date Analilia Mayer PA-C [address] [place] [address] PCP - General Physician Color Paste Mixer 06/10/24
--- OUTSIDE RECORDS SUMMARY | 2025-04-26 08:20 | XMS_ITS | Clinical Summary ---
Author Organization Healthcare Address [address] [place] [address] Care Team Providers Care Bone Drier Name Role Phone Sepideh Talbot AAYUSH Primary Care Provider [phone] Medications Fluticasone-Umec lidin-Vilant (Trelegy Ellipta) 100-62.5-25 MCG/ACT aerosol powder Active olmesartan (BENIcar) 40 MG tablet 04/13/2000 Active pravastatin (Pravachol) 40 MG tablet Active albuterol 108 (90 Base) MCG/ACT inhaler 02/12/2023 Act mat amLODIPine (Norvasc) 10 MG tablet 04/20/2023 Active bisoprolol (Zebeta) 5 MG tablet Active cloNIDine (Catapres) 0.1 MG tablet Take 1 tablet (0.1 mg) by mouth. 04/27/2023 Active doxycycline (Adoxa) 100 MG tablet Take 1 tablet (100 mg) by mouth. for 10 days 05/19/2023 Active Active Problems Problem Noted Date Diagnosed Date Blood pressure instability 06/01/202306/01 Fatigue 06/01/2023 06/01/2023 Numbness and tingling 06/01/2023 06/01/2023 COPD (chronic obstructive pulmonary disease) 06/01/2023 Immunizations Immunization Administration Dates Next Due Influenza, high-dose, quadrivalent 09/23/2022, Influenza, injectable, quadr ivalent, preservative free 11/15/2021 Moderna COVID-19 Vaccine (Re d Cap) 12+ years 11/15/2021,02/06/2021,01/02/2021 Pneumococcal Conjugate PCV 13 06/25/2021 Pneumococcal Polysaccharide PPV23 09/23/2022 Social History Tobacco Use Types Packs/Day Years Used Date Smoking Tobacco: Never Assessed Comments Unknown Sex and Gender Information Value Date Recorded Sex Assigned at Female 05/26/2023 5:20 PM EDT Legal Sex Female 8:40 AM EDT Gender Identity Female 05/26/2023 5:20 PM EDT Sexual Orientation Straight 05/26/2023 5: 20 PM EDT Last Filed Vital Signs Vital Sign Reading Time Taken Comments Blood Pressure 133/68 06/01/2023 8:41 AM EDT Pulse 54 06/01/2023 8:41 AM EDT Temperature - - Respiratory Rate - - Oxygen Saturation 96% 06/01/2023 8:41 AM EDT Inhaled Oxygen Concentration - - Weight 76.1 kg (167 lb 12.3 oz) 06/01/2023 8:41 AM EDT Height 165.1 cm (5' 5 ) 06/01/2023 8:41 AM EDT Body Mass Index 27.92 06/01/2023 8:41 AM EDT Plan of Treatment Health Maintenance Due Date Last Done Comments [facility]-Bone Density Scan 1955 [facility]-Depression Screening 1955 [facility]-Hepatitis C Screening 1955 [facility]-Infant/Child/Adol SDOH Screenings 1955 [facility]- SDOH Screenings 1973 [facility]-Adult SDOH Screenings 1973 [facility]-DTaP,Tdap,and Td Vaccine s (1 - Tdap) 1974 CT Colonography 2000 Colonoscopy 2000 FIT-DNA 2000 FIT 2000 FOBT 2000 Sigmoidoscopy 2000 [facility]-Colorectal Cancer Screening 2000 [facility]-Breast Cancer Screening 2005 [facility]-Zoster Vaccines (1 of 2) 2005 [id number] Vaccine ( season) 2024 11/15/2021, 02/06/2021, 01/02/2021 [facility]-Influenza Vaccine (Seaso n Ended) 2025 09/23/2022, 11/15/2021, 08/07/2020 [facility]-RSV Vaccine: 60+ Years o r (1 - 1-dose 75+ series) 2030 [facility]-Pneumococcal Vaccine: 50 + Years Completed 09/23/2022, 06/25/2021 [facility]-Obesity Intervention Completed 06/01/2023 HPV Vaccines Aged Out No longer eligi ble based on patient's age to complete this topic [facility]-HIB Vaccines Aged Out No longer e ligible based on patient's age to complete this topic [facility]-Hepatitis A Vaccines Aged Out No longer eligible based on patient's age to complete this topic [facility]-IPV Vaccines Aged Out No longer e ligible based on patient's age to complete this topic [facility]-Rotavirus Vaccines Aged Out No lo nger eligible based on patient's age to complete this topic Insurance [facility] [place] [address] Care Teams Bone Drier Relationship Specialty Start Date End Date TalbotSepideh, [employer] [address] [facility] [address] [place] [address] PCP - General 06/01/23
--- OUTSIDE RECORDS SUMMARY | 2025-04-26 08:20 | XMS_ITS | Data Portability ---
Author Organization [place] - [facility] & MIGUEL Gregory ADMIN Address [address] [place] [id number] Care Team Providers Care Budget Consultant Name Role Phone SHILOH DUNLAP Primary Care Provider Assessment Encounter Date Assessment Date Assessment LastModified by Organization Details LastModified Time 04/25/2025 04/25/2025 69-year-old female with generalized abdominal pain, poor appetite, rectal bleeding, and significant constipation [email or web address] Not available 04/25/2025 10:12:13 Plan of Treatment [...] Not available Not available Not available Lab CBC w/ auto diff 2024 025 [email or web address] Not available 03/22/2025 09:49:33 CMP, serum or plasma 2024 025 [email or web address] Not available 03/22/2025 11:40:58 ldh, serum or plasma 2024 025 [email or web address] Not available 03/22/2025 11:41:00 C-reactiv e protein, quantitat vick, serum or plasma 2024 025 [email or web address] Not available 03/29/2025 12:56:46 bcr/alb1, quantitat vick PCR, blood or tissue 2024 025 [email or web address] Not available 03/29/2025 12:56:46 chronic leukemia panel, flow cytometry , unspecifi ed specimen 2024 025 [email or web address] Not available 03/30/2025 08:40:44 jak2 (V617F) mutation, blood/tis tony 2024 025 Not available 03/30/2025 08:40:44 carbon monoxide, QN, blood 2024 025 [email or web address] Not available 03/29/2025 12:56:47 iron + TIBC + ferritin, serum 2024 025 [email or web address] Not available 03/29/2025 12:56:47 iron saturatio n, serum 2024 025 [email or web address] Not available 03/29/2025 12:56:47 vitamin B12 + folate, serum or blood 2024 025 [email or web address] Not available 03/29/2025 12:56:47 mma (methylma lonic acid), serum 2024 025 [email or web address] Not available 03/29/2025 12:56:47 Referral None recorded. Procedures None recorded. Surgeries None recorded. Imaging None recorded. Medication Orders lubiprost one 24 mcg capsule 2024 025 [facility] 591, [address], [address], 04/25/2025 09:41:00 hydrocort isone 2.5 % topical cream with perineal applicato r 2024 025 [facility] 591, [address], [address], 04/25/2025 09:40:59 Patient TargetsNo targets recorded. Patient InstructionsNo instructions recorded. Reason for Referral None Reported. Results Created Date Observation Date Name Description Value Unit Range Abnormal Flag Note LastModifiedBy Organization Detail LastModifiedTime 05/21/20 25 03/22/2025 CBC AUTO W DIFF WBC 16.8 K/uL 4.0-10 .5 high Not Available [facility] ([facility]) [address] , [place], [address], 03/22/2025 11:05:59 03/22/20 25 03/22/2025 CBC AUTO W DIFF RBC 3.3 M/mm3 4.2-6. 4 low Not Available [facility] ([facility]) [address] , [place], [address], 03/22/2025 11:05:59 03/22/20 25 03/22/2025 CBC AUTO W DIFF HGB 11.2 gm/dL 12.5-1 6.0 low Not Available [facility] ([facility]) [address] , [place], [address], 03/22/2025 11:05:59 03/22/20 25 03/22/2025 CBC AUTO W DIFF HCT 32.5 % 37.0-4 7.0 low Not Available [facility] ([facility]) [address] , [place], [address], 03/22/2025 11:05:59 03/22/20 25 03/22/2025 CBC AUTO W DIFF MCV 97.3 fL 78-100 Not Available [facility] ([facility]) [address] , [place], [address], 03/22/2025 11:05:59 03/22/20 25 03/22/2025 CBC AUTO W DIFF MCH 33.5 pg 27-31 high Not Available [facility] ([facility]) [address] [place], [address], 03/22/2025 11:05:59 03/22/20 25 03/22/2025 CBC AUTO W DIFF MCHC 34.5 g/dL 32-36 Not Available [facility] ([facility]) [address] [place], [address], 03/22/2025 11:05:59 03/22/20 25 03/22/2025 CBC AUTO W DIFF RDW 12.4 % 11.5-1 4.0 Not Available [facility] ([facility]) [address], [place], [address], 03/22/2025 11:05:59 03/22/20 25 03/22/2025 CBC AUTO W DIFF platelet count 435 K/uL 150-45 0 Not Available [facility] ([facility]) [address], [place], [address], 03/22/2025 11:05:59 03/22/20 25 03/22/2025 CBC AUTO W DIFF MPV 9.8 fL 6-9.5 high Not Available [facility] ([facility]) [address] [place], [address], 03/22/2025 11:05:59 03/22/20 25 03/22/2025 CBC AUTO W DIFF neutrophil% 70.6 % 43-65 high Not Available [facility] ([facility]) [address] [facility], [place], [address], 03/22/2025 11:05:59 03/22/20 25 03/22/2025 CBC AUTO W DIFF lymphocyte% 18.4 % 20.5-4 5.5 low Not Available [facility] ([facility]) [address] [place], [address], 03/22/2025 11:05:59 03/22/20 25 03/22/2025 CBC AUTO W DIFF monocyte% 7.7 % 5.5-11 .7 Not Available [facility] ([facility]) [address] [place], [address], 03/22/2025 11:05:59 03/22/20 25 03/22/2025 CBC AUTO W DIFF eosinophil% 1.8 % 0.9-2. 9 Not Available [facility] ([facility]) [address] [place], [address], 03/22/2025 11:05:59 03/22/20 25 03/22/2025 CBC AUTO W DIFF basophil% 0.4 % 0.2-1. 0 Not Available [facility] ([facility]) [address] [place], [address], 03/22/2025 11:05:59 03/22/20 25 03/22/2025 CBC AUTO W DIFF immature granulocytes % 1.1 % 0.0-0. 8 high Not Available [facility] ([facility]) [address] [place], [address], 03/22/2025 11:05:59 03/22/20 25 03/22/2025 CBC AUTO W DIFF nucleated red blood cells % 0.0 % Not Available [facility] ([facility]) [address] [place], [address], 03/22/2025 11:05:59 03/22/20 25 03/22/2025 CBC AUTO W DIFF neutrophil# 11.8 K/uL 2.2-4. 8 high Not Available [facility] ([facility]) [address] [place], [address], 03/22/2025 11:05:59 03/22/20 25 03/22/2025 CBC AUTO W DIFF lymphocyte# 3.1 cell/ mcL 1.3-2. 9 high Not Available [facility] ([facility]) [address] [place], [address], 03/22/2025 11:05:59 03/22/20 25 03/22/2025 CBC AUTO W DIFF monocyte# 1.3 cell/ mcL 0.3-0. 8 high Not Available [facility] ([facility]) [address] [place], [address], 03/22/2025 11:05:59 03/22/20 25 03/22/2025 CBC AUTO W DIFF eosinophil# 0.3 cell/ mcL 0-0.2 high Not Available [facility] ([facility]) [address] [place], [address], 03/22/2025 11:05:59 03/22/20 25 03/22/2025 CBC AUTO W DIFF basophil# 0.1 cell/ mcL 0.0-1. 0 Not Available [facility] ([facility]) [address] [place], [address], 03/22/2025 11:05:59 03/22/20 25 03/22/2025 CBC AUTO W DIFF immature gramulocytes # 0.19 K/uL Not Available [facility] ([facility]) [address] [facility], [place], [address], 03/22/2025 11:05:59 03/22/20 25 03/22/2025 CBC AUTO W DIFF nucleated red blood cells # 0.00 K/uL Not Available [facility] ([facility]) [address] [place], [address], 03/22/2025 11:05:59 03/22/20 25 03/22/2025 CBC AUTO W DIFF manual differential NO Not Available [facility] ([facility]) [address] [place], [address], 03/22/2025 11:05:59 03/22/20 25 03/22/2025 IRON STUDY (IRON /TIBC /%SAT ) iron 101 mcg/m L 40-180 Not Available [facility] ([facility]) [address] [place], [address], 03/22/2025 11:24:45 03/22/20 25 03/22/2025 IRON STUDY (IRON /TIBC /%SAT ) TIBC 314 mcg/d L 250-45 0 Not Available [facility] ([facility]) [address] , [place], [address], 03/22/2025 11:24:45 03/22/20 25 03/22/2025 IRON STUDY (IRON /TIBC /%SAT ) %sat 32 15-55 Not Available [facility] ([facility]) [address], [place], [address], 03/22/2025 11:24:45 03/22/20 25 03/22/2025 COMP METAB OLIC PANEL sodium 134 mmol/ L 136-14 5 low Not Available [facility] ([facility]) [address], [place], [address], 03/22/2025 11:40:58 03/22/20 25 03/22/2025 COMP METAB OLIC PANEL potassium 4.1 mmol/ L 3.6-5. 0 Not Available [facility] ([facility]) [address], [place], [address], 03/22/2025 11:40:58 03/22/20 25 03/22/2025 COMP METAB OLIC PANEL chloride 98 mmol/ L 98-107 Not Available [facility] ([facility]) [address], [place], [address], 03/22/2025 11:40:58 03/22/20 25 03/22/2025 COMP METAB OLIC PANEL carbon dioxide 27.1 mmol/ L 21.0-3 2.0 Not Available [facility] ([facility]) [address] [place], [address], 03/22/2025 11:40:58 03/22/20 25 03/22/2025 COMP METAB OLIC PANEL anion gap 13.0 Not Available [facility] ([facility]) [address] [place], [address], 03/22/2025 11:40:58 03/22/20 25 03/22/2025 COMP METAB OLIC PANEL glucose 92 mg/dL 70-120 Not Available [facility] ([facility]) [address] [facility], [place], [address], 03/22/2025 11:40:58 03/22/20 25 03/22/2025 COMP METAB OLIC PANEL BUN 12 mg/dL 7-18 Not Available [facility] ([facility]) [address] [facility], [place], [address], 03/22/2025 11:40:58 03/22/20 25 03/22/2025 COMP METAB OLIC PANEL creatinine 0.7 mg/dL 0.6-1. 3 Not Available [facility] ([facility]) [address] [facility], [place], [address], 03/22/2025 11:40:58 03/22/20 25 03/22/2025 COMP METAB OLIC PANEL glomerular filtration rate 94 mlper min 60- GFR LIMIT ATION : The eGFR equat ion CKD-E PI 2020 is not appli cable for pedia tric patie nts or great er than 90 years of age. The follo wing condi tions may alter the GFR resul t: extre mes in body size, malnu triti on or obesi ty, skele giovanni muscl e disea se, parap legia or quadr ipleg ia, veget cindy diet or rapid ly caraballo ing kiney funct ion. Not Available [facility] ([facility]) [address] [facility], [place], [address], 03/22/2025 11:40:58 03/22/20 25 03/22/2025 COMP METAB OLIC PANEL osmolality (calculated) 279 mOsm/ kg 275-30 1 OSMOL ALITY IS A CALCU LATIO N UTILI ZING THE SERUM /PLAS MA SODIU M, GLUCO SE AND UREA NITRO GEN (BUN) LEVEL S. FOR THE MOST ACCUR ATE RESUL T A MEASU RED SERUM OSMOL ALITY IS SUGGE STED. Not Available [facility] ([facility]) [address] [facility], [place], [address], 03/22/2025 11:40:58 03/22/20 25 03/22/2025 COMP METAB OLIC PANEL total protein 6.5 g/dL 6.4-8. 2 Not Available [facility] ([facility]) [address] , [place], [address], 03/22/2025 11:40:58 03/22/20 25 03/22/2025 COMP METAB OLIC PANEL albumin 3.4 g/dL 3.4-5. 0 Not Available [facility] ([facility]) [address] , [place], [address], 03/22/2025 11:40:58 03/22/20 25 03/22/2025 COMP METAB OLIC PANEL globulin 3.1 Not Available [facility] ([facility]) [address] , [place], [address], 03/22/2025 11:40:58 03/22/20 25 03/22/2025 COMP METAB OLIC PANEL alb/glob ratio 1.1 0.7-2 Not Available [facility] ([facility]) [address] , [place], [address], 03/22/2025 11:40:58 03/22/20 25 03/22/2025 COMP METAB OLIC PANEL calcium 8.7 mg/dL 8.5-10 .5 Not Available [facility] ([facility]) [address] , [place], [address], 03/22/2025 11:40:58 03/22/20 25 03/22/2025 COMP METAB OLIC PANEL bilirubin total 0.60 mg/dL 0.10-1 .00 Not Available [facility] ([facility]) [address] , [place], [address], 03/22/2025 11:40:58 03/22/20 25 03/22/2025 COMP METAB OLIC PANEL AST (SGOT) 19 U/L 0-37 Not Available [facility] ([facility]) [address] [facility], [place], [address], 03/22/2025 11:40:58 03/22/20 25 03/22/2025 COMP METAB OLIC PANEL ALT (SGPT) 35 U/L 0-65 Not Available [facility] ([facility]) [address] [facility], [place], [address], 03/22/2025 11:40:58 03/22/20 25 03/22/2025 COMP METAB OLIC PANEL alk phosphatase 64 U/L 46-116 Not Available [facility] ([facility]) [address] [facility], [place], [address], 03/22/2025 11:40:58 03/22/20 25 03/22/2025 LDH (LD) LDH 194 U/L 0-190 high Not Available [facility] ([facility]) [address] [facility], [place], [address], 03/22/2025 11:41:00 03/22/20 25 03/22/2025 C-FARRAH CTIVE PROTE IN (CRP) C-reactive protein, quant 0.8 mg/dL 0.05-0 .300 high Not Available [facility] ([facility]) [address] [facility], [place], [address], 03/22/2025 11:41:02 03/22/20 25 03/22/2025 RICK TIN ferritin, serum 222 NG/mL 3-244 Not Available [facility] ([facility]) [address] [place], [address], 03/22/2025 11:41:03 03/22/20 25 03/22/2025 VITAM IN B12 vitamin B12 1117 pg/mL 193-98 6 high *Note : Refer ence Kelvin Davis. New Test Metho d in use. Not Available [facility] ([facility]) [address], [place], [address], 03/22/2025 11:51:56 03/22/20 25 03/22/2025 VITAM IN B12 folate (folic acid), serum 9.6 NG/mL 8.6-58 .9 *Note : Refer ence Inter shalnoda tellez. New Test Metho d in use. Not Available [facility] ([facility]) [address], [place], [address], 03/22/2025 11:51:56 03/22/20 25 03/28/2025 METHY LMALO HERI ACID QUANT methylmaloni c acid, serum 141 nmol/ L 0-378 Speci men Comme nt: Test( s) 94127 7-Met hylma lonic Acid, Serum Speci men Comme nt: was devel oped and its perfo rmanc e hugh cte risti cs Speci men Comme nt: deter mined by [facility]. It has not been rosi ared or appro chyna Speci men Comme nt: by the Food and Drug Admin istra tion. Perfo rmed at: - [place] [address] [facility] , [place] [address] Lab Direc tor: Diann guerin MD, Phone : [phone] Not Available [facility] ([facility]) [address] , [place], [address], 03/28/2025 06:09:59 03/22/20 25 03/28/2025 BCR-A BL1 RT-PC R methodology: Commselina t . Total RNA is isola calvin from the sampl e and subje ct to a real- time, rever se trans cript ase polym erase chain react ion (RT-P CR). The PCR prime rs and probe s are speci fic for BCR- ABL1 e13a2 , e14a2 and e1a2 fusio n trans cript s. The ABL1 trans cript is ampli fied as the contr ol for cDNA quant ity and quali ty. Seria l dilut ions of a valid ated posit vick contr ol RNA with known t(9;2 2) BCR-A BL1 are used as refer ence for quant ifica tion of BCR-A BL1 relat vick to ABL1. The numer ic BCR-A BL1 level is repor calvin as % BCR- ABL1/ ABL1 and the detec tion sensi tivit y is 4.5 log below the stand prosper basel ine (<0.0 032%) . . This test was radha ahuja and its perfo rmanc e hugh cteri stics deter mined by [facility]. It has not been clear ed or appro chyna by the Food and Drug Admin istra tion. Not Available [facility] ([facility]) [address] [facility], [place], [address], 03/28/2025 10:11:03/22/2003/28/2025 BCR-A BL1 RT-PC R interpretati on: Negati ve NEGAT VICK for the BCR-A BL1 e1a2 (p190 ), e13a2 (b2a2 , p210) and e14a2 (b3a2 , p210) fusio n trans cript s. These resul ts do not rule out the prese nce of rare BCR-A BL1 trans cript s not detec calvin by this assay . Not Available [facility] ([facility]) [address] [facility], [place], [address], 03/28/2025 10:11:03/22/2003/28/2025 BCR-A BL1 RT-PC R b2a2 transcript <0.003 2 % % Not Available [facility] ([facility]) [address] [place], [address], 03/28/2025 10:11:03/22/20 25 03/28/2025 BCR-A BL1 RT-PC R b3a2 transcript <0.003 2 % % Not Available [facility] ([facility]) [address] [facility], [place], [address], 03/28/2025 10:11:09 03/22/2003/28/2025 BCR-A BL1 RT-PC R e1a2 transcript <0.003 2 % % Not Available [facility] ([facility]) [address] , [place], [address], 03/28/2025 10:11:09 03/22/2003/28/2025 BCR-A BL1 RT-PC R pdf image . Perfo rmed at: [place] [place] [address] [place], [place] [address] Lab Direc tor: Tomasa Alejandre [facility] , Phone : [phone] Perfo rmed at: [facility] - [facility] [place] [address] , [place] [address] Lab Direc tor: Changkaylee Alejandre [facility] , Phone : [phone] Not Available [facility] ([facility]) [address] , [place], [address], 03/28/2025 10:11:09 03/22/2003/28/2025 BCR-A BL1 RT-PC R background Commen t . This assay can detec t three diffe rent types of BCR-A BL1 fusio n trans cript s assoc iated with CML, ALL, and AML: e13a2 (prev iousl y b2a2) and e14a2 (prev iousl y b3a2) (cara r break point , p210) , as well as e1a2 (tatyana r break point , p190) . The e13a2 and e14a2 trans cript value s are titra calvin to the curre nt Inter natio nal Scale (IS). The stand ardiz ed basel ine is 100% BCR-A BL1 (IS) and major molec ular respo nse (MMR) is equiv alent to 0.1% BCR-A BL1 (IS) corre spond ing to a 3-log reduc tion. Resul ts sonam d be corre lated with appro priat e clini sabina and labor atory infor matio n as indic ated. Not Available [facility] ([facility]) [address] , [place], [address], 03/28/2025 10:11:09 03/22/20 25 03/28/2025 BCR-A BL1 RT-PC R references: Allan powell . 1) Laron Powell, Devaughn villanueva S. Molec ular monit oring of chron ic myelo id [facility]. Semin Hemat ol. 2003 Jan; 40(2 Suppl 2):62 -68. . 2) NCCN Clini sabina Pract ice Guide lines in Oncol ogy Chron ic Myelo id [facility] Versi on 5 - Augus t 2023 . 3) Jannet Ordonez P, Kenn tafoya P, et al. Estab [facility] ent of the of the first World Healt h Organ izati on Inter natio nal Emily ic Refer ence Panel for quant itati on of BCR-A BL mRNA. Blood . 2010 25; 116(2 2):e1 11-11 7. Not Available [facility] ([facility]) [address], [place], [address], 03/28/2025 10:11:09 03/22/20 25 03/28/2025 BCR-A BL1 RT-PC R director review: Allan powell Techn ical [place] nent perfo rmed at [facility] [place] . Ceasar flores al [place] nent perfo rmed by: Radha Nelson, PhD, FACMG Direc tor, Molec ular Oncol ogy [facility] YWYUD [address] [facility] [id number] [phone] Not Available [facility] ([facility]) [address], [place], [address], 03/28/2025 10:11:09 03/22/20 25 03/29/2025 CARBO N MONOX NUVIA QN(CA RBOXY HEM) carbon monoxide, blood TNP TEST NOT PERFO RMED SPECI MEN CLOTT ED--P ATIEN T WILL BE MACHADO D BACK FOR RECOL LECTI ON Not Available [facility] ([facility]) [address], [place], [address], 03/29/2025 12:52:01 03/22/2003/29/2025 CHRON IC LEUKE MOMO/L YMPHO MA specimen type Commen t . Perip heral blood Not Available [facility] ([facility]) [address], [place], [address], 03/29/2025 13:11:53 03/22/20 25 03/29/2025 CHRON IC LEUKE MOMO/L YMPHO MA clinical information Commen t . A recen t CBC was not avail able for revie w at the time this r eport was prepa red. Not Available [facility] ([facility]) [address], [place], [address], 03/29/2025 13:11:53 03/22/20 25 03/29/2025 CHRON IC LEUKE MOMO/L YMPHO MA comment: Commen t . Each antib vickie in this assay was utili zed to asses s for poten tial abnor malit ies of studi ed cell popul ation s or to hugh cteri ze ident ified abnor malit ies. . This test was devel oped and its perfo rmanc e hugh cteri stics deter mined by [facility]. It has not been clear ed or appro chyna by the U.S. Food and Drug Admin istra tion. . The FDA has deter mined that such clear ance or appro shalonda is not neces aneudy. This test is used for clini sabina purpo ses. It shoul d not be regar ded as inves tigat ional or for resea [facility]. Perfo rmed at: -[facility] - [facility] [address] [place], [place] [address] Lab Direc tor: Tomasa Alejandre [facility] , Phone : [phone] Perfo rmed at: TG - [facility] [address] , [place] [address] Lab Direc tor: Tomasa COLEShD , Phone : [phone] Not Available [facility] ([facility]) [address], [place], [address], 03/29/2025 13:11:53 03/22/20 25 03/29/2025 CHRON IC LEUKE MOMO/L YMPHO MA flow comment Commen t . JAK2 [id number] mutat ion joon sis is reque sted and the resul t is pendi ng. Previ ous negat vick pheno typic resul t was revie wed (02/19 ) . Not Available [facility] ([facility]) [address] [facility], [place], [address], 03/29/2025 13:11:53 03/22/20 25 03/29/2025 CHRON IC LEUKE MOMO/L YMPHO MA flow interpretati on Commen t . No signi fican t immun ophen otypi c abnor malit y detec calvin Not Available [facility] ([facility]) [address], [place], [address], 03/29/2025 13:11:53 03/22/20 25 03/29/2025 CHRON IC LEUKE MOMO/L YMPHO MA leukocyte assessment Commen t . nNo monoc lonal B cell popul ation is detec calvin. kappa :sauer da ratio 1.4 There is no loss of, or aberr ant expre ssion of, the santos T ce ll antig ens to sugge st a neopl astic T cell proce ss. CD4:C D8 ratio 5.0 No circu latin g blast s are detec calvin. Rare granu locyt es show left- shift ed matur ation . Joon sis of the lymph ocyte popul ation shows : B cells 7%, T c ells 90%, NK cells 3%. Not Available [facility] ([facility]) [address], [place], [address], 03/29/2025 13:11:53 03/22/20 25 03/29/2025 CHRON IC LEUKE MOMO/L YMPHO MA resulting path name Commen t . Magdiel Arnett M.D. Ph.D Not Available [facility] ([facility]) [address] [facility], [place], [address], 03/29/2025 13:11:53 03/22/20 25 03/29/2025 CHRON IC LEUKE MOMO/L YMPHO MA phenotype chart Commen t . CD2 Herminia l CD3 Hermniia l CD4 Herminia l CD5 Herminia l CD7 Herminia l CD8 Herminia l CD10 Herminia l CD11b Herminia l CD13 Herminia l CD14 Herminia l CD16 Herminia l CD19 Herminia l CD20 Herminia l CD33 Herminia l CD34 Herminia l CD38 Herminia l CD45 Herminia l CD56 Herminia l CD57 Herminia l CD64 Herminia l CD117 Herminia l HLA-D R Herminia l KAPPA Herminia l LAMBD A Hermiina l Not Available [facility] ([facility]) [address] [facility], [place], [address], 03/29/2025 13:11:53 03/22/20 25 03/29/2025 CHRON IC LEUKE MOMO/L YMPHO MA analysis and gating strategy Commen t . 8 color joon sis with CD45/ SSC minerva ha Techn ical- Joon sis perfo rmed at [facility], [facility] at[facility] [employer], [address] [place] [address] , Direc tor: Tomasa Alejandre , [facility] , [phone] Not Available [facility] ([facility]) [address] [facility] [facility], [place], [address], 03/29/2025 13:11:53 03/22/20 25 03/29/2025 CHRON IC LEUKE MOMO/L YMPHO MA viability Commen t . 84% Not Available [facility] ([facility]) [address] [facility] [facility], [place], [address], 03/29/2025 13:11:53 03/22/20 25 03/29/2025 JAK2 V617 MUTAT ION DETEC TION jak2 v617f mutation detection Commen t Resul t: NEGAT VICK for the JAK2 V617F mutat ion. . Inter preta tion: The G to T nucle otide caraballo e encod ing the V617F mutat ion was not detec calvin. This resul t does not rule out the prese nce of the JAK2 mutat ion at a level below the sensi tivit y of detec tion of this assay , or the prese nce of other mutat ions withi n JAK2 not detec calvin by this assay . This resul t does not rule out a diagn osis of polyc ythem ia vera, essen tial throm bocyt hemia or idiop athic myelo fibro sis as the V617F mutat ion is not detec calvin in all patie nts with these disor ders. . Not Available [facility] ([facility]) [address], [place], [address], 03/29/2025 13:11:54 03/22/20 25 03/29/2025 JAK2 V617 MUTAT ION DETEC TION director review Vasileen t Radha Nelson, PhD, [facility] Direc tor, Molec ular Oncol ogy [facility] [place] [address] [phone] . This test was devel oped and its perfo rmanc e hugh cteri stics deter mined by [facility]. It has not been clear ed or appro chyna by the Food and Drug Admin istra tion. Perfo rmed at: [place] [address] [facility], [facility] [place] [address] Lab Direc tor: Tomasa Alejandre [facility] , Phone : [phone] Perfo rmed at: [facility] - [facility] [address] , [facility] [place] [address] Lab Direc tor: Tomasa Alejandre [facility] , Phone : [phone] Not Available [facility] ([facility]) [address] , [place], [address], 03/29/2025 13:11:54 03/22/20 25 03/29/2025 JAK2 V617 MUTAT ION DETEC TION background Commen t . 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 A point mutat ion withi n exon 14 of the JAK2 gene ([id number]) encod ing a valin e to pheny lalan ine subst ituti on at posit ion 617 of the JAK2 prote in (V617 F) has been ident ified in most patie nts with polyc ythem ia vera, and in about half of those with eithe r essen tial throm bocyt hemia or idiop athic myelo fibro sis. The V617F has also been detec calvin, altho ugh infre quent ly, in other myelo id disor ders such as chron ic myelo monoc ytic leuke momo and chron ic neutr ophil ic lueke momo. V617F is an acqui red mutat ion that alter s a highl y conse rved valin e prese nt in the negat vick regul atory JH2 domai n of the JAK2 prote in and is predi cted to dysre gulat e kinas e activ ity. . Metho dolog y: Total genom ic DNA was extra cted and subje cted to TaqMa n real- time PCR ampli ficat ion/d etect ion. Two ampli ficat ion produ cts per sampl e were monit ored by real- time PCR using prime rs/pr obes speci fic to JAK2 wild type (WT) and JAK2 mutan t V617F . The ABI79 00 Absol sukumar Quant itati on softw are will nesha re the patie nt speci men valus e to the stand prosper curve s and gener ate perce nt value s for wild type and mutan t type. In vitro studi es have indic ated that this assay has an joon tical sensi tivit y of 1%. . Refer ences : Aury CAMPOVERDE, Jose SHAH, Justin WAITE, et al. Acqui red mutat ion of the tyros ine kinas e JAK2 in human myelo proli ferat vick disor ders. Ty t. 2005 Jan 18 ; 365(6 557): 1054- 1061. Dvaid Sandoval, Theo V, Indu deutsch MARLA. A uniqu e clona l JAK2 mutat ion leadi ng to const ituti ve signa ling cause s polyc ythae momo vera. Natestefani e. 2004Feb 27; 434(0 757): 1141- 1144. Stan connolly R, Yudi galeana F, Marcie , et al. A gain- of- funct ion mutat ion of JAK2 in myelo proli ferat vick disor ders. N Engl J Med. 2005 Feb 27; 352(1 7):17 79-17 90. Not Available [facility] ([facility]) [address] [facility], [place], [address], 03/29/2025 13:11:54 03/22/20 25 03/29/2025 CARBO N MONOX NUVIA QN(CA RBOXY HEM) carbon monoxide, blood TNP % TEST NOT PERFO RMED SPECI MEN CLOTT ED--P ATIEN T WILL BE MACHADO D BACK FOR RECOL LECTI ON Test not perfo rmed. Whole blood speci men parti ally or compl etely clott ed. A commo n cause is insuf ficie nt mixin g upon colle ction . Envir onmen giovanni Expos ure: Nonsm okers <3.7 Smoke rs <9.9 Occup ation al Expos ure: JAM 3.5 . Detec tion Limit = 0.[address]:AN GIE R 2024 Perfo rmed at: [facility] - [facility] [place] [address] [facility] , [place] [address] Lab Direc tor: Diann guerin MD, Phone : [phone] Not Available [facility] ([facility]) [address] [facility], [place], [address], 03/29/2025 13:11:55 Result Notes None recorded. Problems Name Problem SNOMED Code Status Onset Date Resolution Date Notes Provider Name and Address Organization Details Recorded Time Chronic idiopathic constipati on 97194481 Active 2024 Nikos Higginbotham PA-C [address], [place], [place], [address] [place] [address] , [place] - [facility] & [place] 5 09:32:05 Blood-ting ed feces 7979792919660 02 Active 2024 Nikos Higginbotham PA-C [address], [place] [address] , [place] - [facility] & [place] 5 09:32:10 Hemorrhoid s 94123723 Active 2024 Nikos Higginbotham PA-C [address], [place] [address] , [facility] - [facility] & [place] 5 09:32:18 Decrease in appetite 44567066 Active 2024 Nikos Higginbotham PA-C [address] [address] , [place] - [facility] & [place] 5 09:34:40 Generalize d abdominal pain 855350467 Active 2024 Nikos Higginbotham PA-C [address] [place] - [facility] & [place] 5 09:35:09 Problem Notes None recorded. Procedures Surgical History Date Name Laterality Status Provider Name and Address Organization Details Recorded Time 03/22/20 25 Venipuncture completed Danna Marks [place] - [facility] & [place] 03/22/2025 09:33:48 total hysterectomy completed Karlee Cross [place] - [facility] & [place] 03/22/2025 09:02:54 cholecystectomy completed Char TERRAZAS - [facility] & [place] 03/22/2025 09:03:05 colonoscopy completed Char TERRAZAS - [facility] & [place] 03/22/2025 09:03:38 Imaging Results None recorded. Procedure Notes None recorded. Medical Equipment None Reported. Allergies Allergen ID Allergen Name Allergen Category Reaction Reaction Severity Criticality Documentation Date Start Date Code Code System Note Provider Name and Address Organization Details Recorded Time 822790 tramadol medicatio n Not available Not available [facility] 03/22/2025 66207 RxNorm Char lundberg, NINI RIVERA [facility] & [place] 5 08:54:39 801682 Bactrim medicatio n Not available [facility] 03/22/2025 49383 9 RxNorm Char lundberg, NINI RIVERA [facility] & [place] 5 08:54:57 435803 levofloxa katy medicatio n Not available Not available [facility] 03/22/2025 59084 RxNorm Char lundberg, [facility] [place] 5 08:57:05 Medications Name Sig Start Date [...] Organization Details Last Updated DateTime 165.1 cm 28.8 kg/m2 32810.8 4 g 98.6 [degF] 94 % 94 % 68 /min 116 mm[Hg] 61 mm[Hg] Char Cross [facility] & [place] 08:53:50 Date Recorded Body height Body mass index (BMI) Body weight Body temperature Oxygen saturation Oxygen saturation in Arterial blood by Pulse oximetry Heart rate Systolic blood pressure Diastolic blood pressure Provider Name and Address Organization Details Last Updated DateTime 165.1 cm 28.7 kg/m2 07722.3 2 g 97.2 [degF] 95 % 95 % 72 /min 134 mm[Hg] 72 mm[Hg] Ute Brooks [facility] & [place] 09:08:45 Social History Question Answer Notes LastModified by [employer] Details LastModified Time Tobacco Smoking Status Current Every Day Smoker [place] Cross [facility] & [place] 03/22/2025 09:02:39 What Is Your Level Of Caffeine Consumption? Occasional [email or web address] Information not available 03/22/2025 What Was The Date Of Your Most Recent Tobacco Screening? 03/22/2025 [email or web address] Information not available 03/22/2025 At What Age Did You Start Smoking Tobacco? 15 [email or web address] Information not available 03/22/2025 How Much Tobacco Do You Smoke? 0.5 PPD Information not available 03/22/2025 Has Tobacco Cessation Counseling Been Provided? No [email or web address] Information not available 03/22/2025 Sex: Unknown Functional Status Question Answer Note LastModified by [email or web address] ion Details LastModified Time Do you use any illicit or recreational drugs? No Information not available 03/22/2025 Do you or have you ever used any other forms of tobacco or nicotine? No [email or web address] Information not available 03/22/2025 What is your level of alcohol consumption? None [email or web address] Information not available 03/22/2025 Mental Status None recorded. Family History Relationship Description Onset Age of this Age Resolved Age Notes LastModified by Organization Details LastModified Time Mother Malignant neoplasm of vertebral column [email or web address] Not available 03/22 08:59:33 Mother Cerebrovascu lar accident [email or web address] Not available 09:00:38 Father Malignant neoplasm of prostate [email or web address] Not available 03/22 08:59:55 Brother Malignant neoplasm of prostate mets to Bladde r [email or web address] Not available 03/22/2025 08:59:55 Sister Malignant neoplasm of lung [email or web address] Not available 03/22 09:00:04 Sister Aneurysm [email or web address] Not availab le 03/22/2025 09:01:43 Paternal Uncle Myocardial infarction [email or web address] Not available 03/03 09:01:10 Medical History No medical history recorded. Gynecological HistoryNo gynecological history recorded. Obstetrics History GPAL:G 0 P 0 0 0 0 Immunizations Vaccine Type Date Status Note Provider Nam e and Address Organization Details Recorded Time Influenza, high-dose, quadrivalent, PF 5 completed Char lundberg, [place] - [facility] 03/22/2025 08:54:06 Influenza, high-dose, quadrivalent, PF 0 completed Char Cross [facility], [place] - [facility] & [place] 03/22/2025 08:54:06 COVID-19, mRNA, LNP-S, PF, 100 mcg/0.5mL dose or 50 mcg/0.25mL dose 2 completed Char lundberg, [place] - [facility] & [place] 03/22/2025 08:54:06 COVID-19, mRNA, LNP-S, PF, 100 mcg/0.5mL dose or 50 mcg/0.25mL dose 1 completed Char lundberg, [place] - [facility] & [place] 03/22/2025 08:54:06 COVID-19, mRNA, LNP-S, PF, 100 mcg/0.5mL dose or 50 mcg/0.25mL dose 1 completed Char lundberg, NINI - [facility] - [place] & [place] 03/22/2025 08:54:06 pneumococcal polysaccharide PPV23 2 completed Char lundberg, NINI - [facility] - [place] & [place] 03/22/2025 08:54:06 Pneumococcal conjugate PCV 13 1 completed Char lundberg, NINI - [facility] - [place] & [place] 03/22/2025 08:54:06 Influenza, high-dose, trivalent, PF 2 completed Char lundberg, NINI - [facility] - [place] & [place] 03/22/2025 08:54:06 Influenza, split virus, quadrivalent, PF 2 completed Char lundberg, NINI - [facility] - [place] & [place] 03/22/2025 08:54:06 Past Encounters Encounter ID Performer Location Encounter Start Date Encounter Closed Date Diagnosis/Indication Diagnosis SNOMED-CT Code Diagnosis ICD10 Code Diagnosis Note [id number] Pravin Sanchez MD [facility] [address] [facility] [address] [place] [address] 03/22/2025 08:30:33 03/22/2025 09:18:49 Leukocytosis 894658317 D72.829 Patient with current smoking history. Patient smokes about 1/2 pack per day. Patient started smoking at age 14. Patient with 30 pack-year history of smoking. Due to smoking history discussed with patient low-dose lung cancer screening CT scan. Labs performed February 27, 2025 with white blood cell count 12.5. Red blood cell count 3.72. Hemoglobin 12.6 and hematocrit 35.8. MCV 96.2. Platelet count 411. On al predominan tly neutrophil s at absolute count of 8.5. Neutrophil percentage 67.7. Slight increase in absolute monocyte count 1.1 however percentage is normal. Normal serum electrolyt es. GFR greater than 60. Normal total protein. TSH normal at 0.99. Vitamin-D level normal at 64.2. Patient presents for evaluation on March 22, 2025. Discussed recent CBC. Discussed likely white blood cell count elevation secondary to smoking. Mild elevation and predominan tly neutrophil s. Discussed additional testing to rule out other pathology. Encouraged smoking cessation. Anemia 386165235 D64.9 Labs performed February 27, 2025 with white blood cell count 12.5. Red blood cell count 3.72. Hemoglobin 12.6 and hematocrit 35.8. MCV 96.2.Mild normocytic anemia. Will follow up iron studies. Will follow up B12 and folate. Cobalamin deficiency 190 904517 E53.8 Prior history of B12 deficiency . Will follow up repeat labs. Vitamin D deficiency 347 43978 E55.9 Prior history of vitamin-D deficiency . Vitamin-D level normal on February 27, 2025. Would recommend bone density testing if patient has not already had. Cigarette smoker 7377530 7 F17.210 Patient with current smoking history. Patient smokes about 1/2 pack per day. Patient started smoking at age 14. Patient with 30 pack-year history of smoking. Due to smoking history discussed with patient low-dose lung cancer screening CT scan.Queenie nt recently had low-dose lung cancer screening CT scan in early 2024. Centriacin ar emphysema 55045926 J43.2 Patient with history of COPD. Currently on Trelegy. Follows with pulmonolog y. [id number] Nikos Higginbotham PA-C [facility] [address] 04/25/2025 08:56:30 04/25/2025 09:59:49 Chronic idiopathic constipation 13313220 K59.04 -Start Lubiprosto ne twice daily. She may use Miralax as needed in addition to this.-Cont inue fiber tablets-We discussed possible benefit of pelvic floor therapy. She states she does not think she can make the appointmen ts due to transporta tion issues. Blood-tinged feces 03794 27236 51240 K92.1 -Colonosco py is scheduled. Treat hemorrhoid s per below. Hemorrhoids 34917991 K64 .9 -Start topical hydrocorti sone. Decrease in appetite 043 84840 R63.0 -Potential ly due to constipati on. EGD has been scheduled. Generalize d abdominal pain 256972346 R10.84 -We will schedule EGD and colonoscop y for further evaluation of her abdominal pain and rectal bleeding Health Concerns Section Related Observation LastModified by Organization Detai ls LastModified Time None Recorded Concern Status LastModified by Organization Details LastModified Time None Recorded Advance Directives Directive None Recorded Payers Insurance Date Sequence Insurance Name Policy Number Policy Roberts Covered Member ID Roberts Member ID Guarantor Name 04/22/2025 1 [employer] [id number] Efra Beyer [id number] Bhavana Beyer Notes Date Note Type Note Provider Name and Address Organization Details Recorded Time 03/22/2025 text/html 69 yo F presents for evaluation of leukocytosis. patient recently seen by primary care provider. Patient with current smoking history. Patient smokes about 1/2 pack per day. Patient started smoking at age 14. Patient with 30 pack-year history of smoking. Due to smoking history discussed with patient low-dose lung cancer screening CT scan. Labs performed February 27, 2025 with white blood cell count 12.5. Red blood cell count 3.72. Hemoglobin 12.6 and hematocrit 35.8. MCV 96.2. Platelet count 411. On differential predominantly neutrophils at absolute count of 8.5. Neutrophil percentage 67.7. Slight increase in absolute monocyte count 1.1 however percentage is normal. Normal serum electrolytes. GFR greater than 60. Normal total protein. TSH normal at 0.99. Vitamin-D level normal at 64.2. Patient presents for evaluation on March 22, 2025. Discussed recent CBC. Discussed likely white blood cell count elevation secondary to smoking. Mild elevation and predominantly neutrophils. Discussed additional testing to rule out other pathology. Encouraged smoking cessation. Pravin Sanchez MD [address] [facility], [place], [address], [place] - [facility] - [place] & [place] 03/22/2025 10:13:29 04/25/2025 text/html Ms. Beyer is a very [...] unable to schedule this. Nikos Higginbotham PA-C [address], [place], [address], [facility] - [facility] - [place] & [place] 04/25/2025 10:14:57 OBGyn Episode No OBEpisode recorded.
--- OUTSIDE RECORDS SUMMARY | 2025-04-26 08:20 | XMS_ITS | Continuity of Care Document ---
Author Organization [facility] Address [address] [place] [address] Care Team Providers Care Director Of User Experience Name Role Phone SHILOH DUNLAP Primary Care Provider [phone] Assessment No assessment recorded. Plan of Treatment Reminders Order Date Submit [...] available 03/22/2025 11:41:00 C-reactiv e protein, quantitat mat, serum or plasma 2024 025 [email or web address] Not available 03/29/2025 12:56:46 bcr/alb1, quantitat mat PCR, blood or tissue 2024 025 [email or web address] Not available 03/29/2025 12:56:46 chronic leukemia panel, flow cytometry , unspecifi ed specimen 2024 025 [email or web address] Not available 03/30/2025 08:40:44 jak2 (V617F) mutation, blood/tis tony 2024 025 [email or web address] Not available 03/30/2025 08:40:44 carbon monoxide, QN, blood 2024 025 Not available 03/29/2025 12:56:47 iron + TIBC + ferritin, serum 2024 025 [email or web address] Not available 03/29/2025 12:56:47 iron saturatio n, serum 2024 025 [email or web address] Not available 03/29/2025 12:56:47 vitamin B12 + folate, serum or blood 2024 025 [email or web address] Not available 03/29/2025 12:56:47 mma (methylma lonic acid), serum 2024 025 [email or web address] Not available 03/29/2025 12:56:47 Referral None recorded. Procedures None recorded. Surgeries None recorded. Imaging None recorded. Medication Orders None recorded. Patient TargetsNo targets recorded. Patient InstructionsNo instructions recorded. Reason for Referral None Reported. Problems Name Problem SNOMED Code Status Onset Date Resolution Date Notes Provider Name and Address Organization Details Recorded Time Chronic idiopathic constipati on 97173706 Active 2024 Nikos Higginbotham PA-C [address], [place], [address] , [place] - [facility] & [place] 5 09:32:05 Blood-ting ed feces 3941250167792 02 Active 2024 Nikos Higginbotham PA-C [address], [place], [address] , [place] - [facility] & [place] 5 09:32:10 Hemorrhoid s 70047667 Active 2024 Nikos Higginbotham PA-C [address], [place], [address] , [place] - [facility] & [place] 5 09:32:18 Decrease in appetite 78062688 Active 2024 Nikos Higginbotham PA-C [address], [place], [address] , [place] - [facility] [place] 5 09:34:40 Generalize d abdominal pain 532653376 Active 2024 Nikos Higginbotham PA-C [address], [place], [address] , [place] - [facility] & [place] 5 09:35:09 Problem Notes None recorded. Procedures Surgical History Date Name Laterality Status Provider Name and Address Organization Details Recorded Time 03/22/20 Venipuncture completed Danna Peñaga NIN[place] - [facility] & [place] 03/22/2025 09:33:48 total hysterectomy completed Karlee Cross NINI - [facility] & [place] 03/22/2025 09:02:54 cholecystectomy completed Char TERRAZAS - [facility] & [place] 03/22/2025 09:03:05 colonoscopy completed Char Cross NINI - [facility] & [place] 03/22/2025 09:03:38 Imaging Results None recorded. Procedure Notes None recorded. Medical Equipment None Reported. Allergies Allergen ID Allergen Name Allergen Category Reaction Reaction Severity Criticality Documentation Date Start Date Code Code System Note Provider Name and Address Organization Details Recorded Time 987196 tramadol medicatio n Not available [facility] 03/22/2025 75736 RxNorm Char lundberg, NIN[place] - [facility] & [place] 5 08:54:39 375698 Bactrim medicatio n Not available Not available [facility] 03/22/2025 41676 9 RxNorm Char lundberg, [place] [facility] [place] 08:54:57 182450 levofloxa katy medicatio n Not available Not available [facility] 03/22/2025 74058 RxNorm Charjoanna lundberg, [place] - [facility] [place] 08:57:05 Medications Name Sig Start Date [...] Last Updated DateTime 165.1 cm 28.8 kg/m2 50602.8 4 g 98.6 [degF] 94 % 94 % 68 /min 116 mm[Hg] 61 mm[Hg] Char RIVERA [facility] & [place] 08:53:50 Social History Question Answer Notes LastModified by Organizat ion Details LastModified Time Tobacco Smoking Status Current Every Day Smoker Char lundberg, NINI RIVERA [facility] & [place] 03/22/2025 09:02:39 What Is Your Level Of Caffeine Consumption? Occasional [email or web address] Information not available 03/22/2025 What Was The Date Of Your Most Recent Tobacco Screening? 03/22/2025 [email or web address] Information not available 03/22/2025 At What Age Did You Start Smoking Tobacco? 15 [email or web address] Information not available 03/22/2025 How Much Tobacco Do You Smoke? 0.5 PPD [email or web address] Information not available 03/22/2025 Has Tobacco Cessation Counseling Been Provided? No [email or web address] Information not available 03/22/2025 Sex: Unknown Functional Status Question Answer Note LastModified by Organizat ion Details LastModified Time Do you use any illicit or recreational drugs? No Information not available 03/22/2025 Do you or have you ever used any other forms of tobacco or nicotine? No [email or web address] Information not available 03/22/2025 What is your level of alcohol consumption? None [email or web address] Information not available 03/22/2025 Mental Status None recorded. Family History Relationship Description Onset Age of this Age Resolved Age Notes LastModified by Organization Details LastModified Time Mother Malignant neoplasm of vertebral column [email or web address] Not available 03/22 08:59:33 Mother Cerebrovascu lar accident [email or web address] Not available 09:00:38 Father Malignant neoplasm of prostate [email or web address] Not available 03/22 08:59:55 Brother Malignant neoplasm of prostate mets to Bladde r [email or web address] Not available 03/22/2025 08:59:55 Sister Malignant neoplasm of lung [email or web address] Not available 03/22 09:00:04 Sister Aneurysm [email or web address] Not availab le 03/22/2025 09:01:43 Paternal Uncle Myocardial infarction [email or web address] Not available 03/03 09:01:10 Medical History No medical history recorded. Gynecological HistoryNo gynecological history recorded. Obstetrics History GPAL:G 0 P 0 0 0 0 Immunizations Vaccine Type Date Status Note Provider Nam e and Address Organization Details Recorded Time Influenza, high-dose, quadrivalent, PF 5 completed NINI Valentino - [facility] [place] 03/22/2025 08:54:06 Influenza, high-dose, quadrivalent, PF 0 completed NINI Valentino [place] [facility] [place] 03/22/2025 08:54:06 COVID-19, mRNA, LNP-S, PF, 100 mcg/0.5mL dose or 50 mcg/0.25mL dose 2 completed Char Tay null[place] [facility] [place] 03/22/2025 08:54:06 COVID-19, mRNA, LNP-S, PF, 100 mcg/0.5mL dose or 50 mcg/0.25mL dose 1 completed Char Tay null[place] [facility] [place] 03/22/2025 08:54:06 COVID-19, mRNA, LNP-S, PF, 100 mcg/0.5mL dose or 50 mcg/0.25mL dose 1 completed Char Tay [place] [facility] [place] 03/22/2025 08:54:06 pneumococcal polysaccharide PPV23 2 completed Char [place] [facility] [place] 03/22/2025 08:54:06 Pneumococcal conjugate PCV 13 1 completed Char [place] [facility] [place] 03/22/2025 08:54:06 Influenza, high-dose, trivalent, PF 2 completed Char Aty [place] [facility] [place] 03/22/2025 08:54:06 Influenza, split virus, quadrivalent, PF 2 completed Char [place] [facility] [place] 03/22/2025 08:54:06 Past Encounters Encounter ID Performer Location Encounter Start Date Encounter Closed Date Diagnosis/Indication Diagnosis SNOMED-CT Code Diagnosis ICD10 Code Diagnosis Note [id number] Pravin Sanchez MD [facility] [address] [place] [address] 03/22/2025 08:30:33 03/22/2025 09:18:49 Leukocytosis 981748831 D72.829 Patient with current smoking history. Patient [...] 35.8. MCV 96.2. Platelet count 411. On differenti al predominan tly neutrophil s at absolute [...] out other pathology. Encouraged smoking cessation. Anemia 433125791 D64.9 Labs performed February 27, 2025 with white blood cell count 12.5. Red blood cell count 3.72. Hemoglobin 12.6 and hematocrit 35.8. MCV 96.2.Mild normocytic anemia. Will follow up iron studies. Will follow up B12 and folate. Cobalamin deficiency 190 598820 E53.8 Prior history of B12 deficiency . Will follow up repeat labs. Vitamin D deficiency 347 78226 E55.9 Prior history of vitamin-D deficiency . Vitamin-D level normal on February 27, 2025. Would recommend bone density testing if patient has not already had. Cigarette smoker 1863570 7 F17.210 Patient with current smoking history. Patient smokes about 1/2 pack per day. Patient started smoking at age 14. Patient with 30 pack-year history of smoking. Due to smoking history discussed with patient low-dose lung cancer screening CT scan.Queenie nt recently had low-dose lung cancer screening CT scan in early 2024. Centriacin ar emphysema 08245127 J43.2 Patient with history of COPD. Currently on Trelegy. Follows with pulmonolog y. Health Concerns Section Related Observation LastModified by Organization Earl [facility] LastModified Time None Recorded Concern Status LastModified by Organization Details LastModified Time None Recorded Payers Encounter Date Sequence Insurance Name Policy Number Policy Roberts Covered Member ID Roberts Member ID Guarantor Name 03/22/2025 1 [employer] [id number] Efra Beyer [id number] Bhavana Beyer Notes Date Note Type [...] pathology. Encouraged smoking cessation. Pravin Sanchez MD [address], [place], [address], [facility] [place] 03/22/2025 10:13:29 OBGyn Episode No OBEpisode recorded.
--- OUTSIDE RECORDS SUMMARY | 2025-04-26 08:20 | XMS_ITS | Data Portability ---
Author Organization [facility] Office Address [address] [address] Care Team Providers Care Lay Midwife Name Role Phone CATHY CONNORS Referring Provider Assessment No assessment recorded. Plan of Treatment Reminders Order Date Submit Date Provider Last Modified By Organization Details Last Modified Time Details Appointments None recorde d. Lab drug screen, urine - Meds: NPE/nws 2023 024 ESTEFANI Ochoa MD [facility] ([facility]), [address] [place], [address], 4 09:49:45 CMP, serum or plasma 2023 024 shania O[facility]a MD [facility]), [address] [place], [address], 4 12:20:59 gamma-g lutamyl transfe rase (ggt), serum 2023 024 shania Ochoa MD [facility] ([facility]), [address] [place], [address], 4 12:20:59 CBC w/ auto diff 2023 024 shania Ochoa MD [facility] ([facility]), [address] [place], [address], 4 12:20:59 venipun cture 2023 024 [email or web address] Ada Ochoa MD [facility] ([facility]), [address] [facility], [place], [address], 4 12:20:59 Referral [facility] referra l - Beh Med eval as part of multi mode pain managem ent 2023 024 [facility] [address], [address] [facility], [facility] [address], [place], [address], 4 08:55:[address] refer l - Diagnos e and treat 2023 024 [email or web address] In [facility] (Former[facility]), [address] [place] [address] , [place], [address], 4 09:09:45 Procedures epidura l steroid injecti on, lumbar interla minar (PROC) - Order # [id number] interla adriana [id number] [address], [facility] [place], [address], 4 10:32:49 epidura l steroid injecti on, lumbar transfo raminal (PROC) - Order #[id number] 1right L34 and L45 with sedatio n [address], [facility], [address], 4 16:57:22 Surgeries None recorde d. Imaging None recorde d. Medication Orders None recorde d. Patient TargetsNo targets recorded. Patient Instructions Encounter Date Encounter Id Patient Instructions Last Modified By Organization Details Last Modified Time 04/27/[id number] Take medications EXACTLY as instructed. Call office for any problems DO NOT run out of medications and medications should last till next appointment. Notify office if going to be late or need to reschedule. rlingreen Not available 04/27/2024 09:12:21 06/28/2024 [id number] back pain: care instructions rlingreen Not available 06/28/2024 09:33:29 Take medications EXACTLY as instructed. Call office for any problems DO NOT run out of medications and medications should last till next appointment. Notify office if going to be late or need to reschedule. rlingreen Not available 06/27/2024 08:22:25 Reason for Referral Behavioral Health Referral f or Lumbago with sciatica Pt referred for further and continual pain magement Beh Med eval as part of multi mode pain management Referring Physician: Aravind Durbin, Interventional Pain Management, Encounter Date: 04/27/2024 Physical Therapist Referral for Lumbago with sciatica Pt has been referred for further and continual pain management. Diagnose and treat Referring Physician: Aravind Durbin Interventional Pain Management, Encounter Date: 04/27/2024 Results Created Date Observation Date Name Description Value Unit Range Abnormal Flag Note LastModifiedBy Organization Detail LastModifiedTime 04/27/20 24 04/27/2024 GGT abnormal status high Not Available Eugenie Ochoa MD [facility] ([facility]) [address] [place] [address], [id number], 04/27/2024 11:23:17 04/27/20 24 04/27/2024 COMPR EHENS VICK METAB OLIC PANEL (CMP) glucose 91.0 mg/dL 74.0 - 110.0 Not Available Ada Ochoa MD [facility] ([facility]) [address] [place] [address], [id number], 04/27/2024 11:23:17 04/27/20 24 04/27/2024 COMPR EHENS VICK METAB OLIC PANEL (CMP) BUN 11.0 mg/dL 4.0 - 25.0 Not Available Ada Ochoa MD [facility] ([facility]) [address] [place] [address], [id number], 04/27/2024 11:23:17 04/27/20 24 04/27/2024 COMPR EHENS VICK METAB OLIC PANEL (CMP) creatinine 0.6 mg/dL 0.6 - 1.8 Not Available Ada Ochoa MD [facility] (In House Lab) [address] [place] [address], [address], 04/27/2024 11:23:17 04/27/20 24 04/27/2024 COMPR EHENS VICK METAB OLIC PANEL (CMP) sodium 134 mEq/L 133 - 145 Not Available Ada Ochoa MD [facility] (In House [facility]) [address] [place] [address], [address], 04/27/2024 11:23:17 04/27/20 24 04/27/2024 COMPR EHENS VICK METAB OLIC PANEL (CMP) potassium 4.4 mEq/L 3.4 - 5.1 Not Available Ada Ochoa MD [facility] (In House Lab) [address] [place] [address], [address], 04/27/2024 11:23:17 04/27/20 24 04/27/2024 COMPR EHENS VICK METAB OLIC PANEL (CMP) chloride 99.3 mEq/L 93.0 - 106.0 Not Available Ada Ochoa MD [facility] (In House Lab) [address] [place] [address], [id number], 04/27/2024 11:23:17 04/27/20 24 04/27/2024 COMPR EHENS VICK METAB OLIC PANEL (CMP) eco2 29.0 mEq/L 24.6 - 35.8 Not Available Ada Ochoa MD [facility] (In House [facility]) [address] [place] [address], [address], 04/27/2024 11:23:17 04/27/20 24 04/27/2024 COMPR EHENS VICK METAB OLIC PANEL (CMP) calcium 9.3 mg/dL 8.3 - 10.1 Not Available Ada Ochoa MD [facility] (In House [facility]) [address] [place] [address], [address], 04/27/2024 11:23:17 04/27/20 24 04/27/2024 COMPR EHENS VICK METAB OLIC PANEL (CMP) total protein 6.6 g/dL 6.0 - 8.5 Not Available Ada Ochoa MD [facility] (In House [facility]) [address] [place] [address], [address], 04/27/2024 11:23:17 04/27/20 24 04/27/2024 COMPR EHENS VICK METAB OLIC PANEL (CMP) albumin 4.4 g/dL 3.3 - 4.9 Not Available Ada Ochoa MD [facility] (In House [facility]) [address] [place] [address], [address], 04/27/2024 11:23:17 04/27/20 24 04/27/2024 COMPR EHENS VICK METAB OLIC PANEL (CMP) ALP 72.0 U/L 46.0 - 116.0 Not Available Ada Ochoa MD [facility] (In House [facility]) [address] [place] [address], [address], 04/27/2024 11:23:17 04/27/20 24 04/27/2024 COMPR EHENS VICK METAB OLIC PANEL (CMP) AST 20 U/L 6 - 40 Not Available Ada Ochoa MD [facility] (In House [facility]) [address] [place] [address], [address], 04/27/2024 11:23:17 04/27/20 24 04/27/2024 COMPR EHENS VICK METAB OLIC PANEL (CMP) ALT 19 U/L 5 - 30 Not Available Ada Ochoa MD [facility] (In House [facility]) [address] [place] [address], [address], 04/27/2024 11:23:17 04/27/20 24 04/27/2024 COMPR EHENS VICK METAB OLIC PANEL (CMP) total bilirubin 0.74 mg/dL 0.00 - 1.00 Not Available Ada Ochoa MD [facility] (In House [facility]) [address] [place] [address], [address], 04/27/2024 11:23:17 04/27/20 24 04/27/2024 CBC WITH DIFFE RENTI AL/PL ATELE T WBC 12.3 10 4.0 - 11.0 high Not Available Ada Ochoa MD [facility] (In House [facility]) [address] [place] [address], [address], 04/27/2024 11:23:16 04/27/20 24 04/27/2024 CBC WITH DIFFE RENTI AL/PL ATELE T RBC 3.89 10 3.72 - 5.52 Not Available Ada Ochoa MD [facility] (In House [facility]) [address] [place] [address], [address], 04/27/2024 11:23:16 04/27/20 24 04/27/2024 CBC WITH DIFFE RENTI AL/PL ATELE T HGB 13.0 g/dL 11.0 - 16.6 Not Available Ada Ochoa MD [facility] (In House [facility]) [address] [place] [address], [address], 04/27/2024 11:23:16 04/27/20 24 04/27/2024 CBC WITH DIFFE RENTI AL/PL ATELE T HCT 38.1 % 34.0 - 49.0 Not Available Ada Ochoa MD [facility] (In House [facility]) [address] [place] [address], [address], 04/27/2024 11:23:16 04/27/20 24 04/27/2024 CBC WITH DIFFE RENTI AL/PL ATELE T MCV 97.9 fL 79.5 - 101.0 Not Available Ada Ochoa MD [facility] ([facility]) [address] [place] [address], [address], 04/27/2024 11:23:16 04/27/20 24 04/27/2024 CBC WITH DIFFE RENTI AL/PL ATELE T MCH 33.4 pg 26.2 - 34.0 Not Available Ada Ochoa MD [facility] ([facility]) [address] [place] [address], [address], 04/27/2024 11:23:16 04/27/20 24 04/27/2024 CBC WITH DIFFE RENTI AL/PL ATELE T MCHC 34.1 g/dL 31.3 - 36.0 Not Available Ada Ochoa MD [facility] (In House [facility]) [address] [place] [address], [address], 04/27/2024 11:23:16 04/27/20 24 04/27/2024 CBC WITH DIFFE RENTI AL/PL ATELE T plt 377 10 115 - 421 Not Available Ada Ochoa MD [facility] (In House [facility]) [address] [place] [address], [address], 04/27/2024 11:23:16 04/27/20 24 04/27/2024 CBC WITH DIFFE RENTI AL/PL ATELE T RDW-CV 12.9 % 11.3 - 16.1 Not Available Ada Ochoa MD [facility] (In House [facility]) [address] [place] [address], [address], 04/27/2024 11:23:16 04/27/20 24 04/27/2024 CBC WITH DIFFE RENTI AL/PL ATELE T neut# 8.34 10 0.81 - 9.65 Not Available Ada Ochoa MD [facility] (In House [facility]) [address] [place] [address], [address], 04/27/2024 11:23:16 04/27/20 24 04/27/2024 CBC WITH DIFFE RENTI AL/PL ATELE T lymph# 2.41 10 0.65 - 4.81 Not Available Ada Ochoa MD [facility] ([facility]) [address] [place] [address], [address], 04/27/2024 11:23:16 04/27/20 24 04/27/2024 CBC WITH DIFFE RENTI AL/PL ATELE T mono# 0.92 10 0.10 - 1.13 Not Available Ada Ochoa MD [facility] ([facility]) [address] [place] [address], [address], 04/27/2024 11:23:16 04/27/20 24 04/27/2024 CBC WITH DIFFE RENTI AL/PL ATELE T eo# 0.58 10 0.00 - 0.50 high Not Available Ada Ochoa MD [facility] (In House [facility]) [address] [place] [address], [address], 04/27/2024 11:23:16 04/27/20 24 04/27/2024 CBC WITH DIFFE RENTI AL/PL ATELE T baso# 0.09 10 0.00 - 0.09 Not Available Ada Ochoa MD [facility] (In House [facility]) [address] [place] [address], [address], 04/27/2024 11:23:16 04/27/20 24 04/27/2024 CBC WITH DIFFE RENTI AL/PL ATELE T neut% 67.6 % 37.2 - 78.0 Not Available Ada Ochoa MD [facility] (In House [facility]) [address] [place] [address], [address], 04/27/2024 11:23:16 04/27/20 24 04/27/2024 CBC WITH DIFFE RENTI AL/PL ATELE T lymph% 19.5 % 13.4 - 50.2 Not Available Ada Ochoa MD [facility] (In House [facility]) [address] [place] [address], [address], 04/27/2024 11:23:16 04/27/20 24 04/27/2024 CBC WITH DIFFE RENTI AL/PL ATELE T mono% 7.5 % 3.4 - 12.0 Not Available Ada Ochoa MD [facility] ([facility]) [address] [place] [address], [address], 04/27/2024 11:23:16 04/27/20 24 04/27/2024 CBC WITH DIFFE RENTI AL/PL ATELE T eo% 4.7 % 0.0 - 7.0 Not Available Ada Ochoa MD [facility] ([facility]) [address] [place] [address], [address], 04/27/2024 11:23:16 04/27/20 24 04/27/2024 CBC WITH DIFFE RENTI AL/PL ATELE T baso% 0.7 % 0.0 - 3.0 Not Available Ada Ochoa MD [facility] ([facility]) [address] [facility], [place], [address], 04/27/2024 11:23:16 Result Notes None recorded. Problems Name Problem SNOMED Code Status Onset Date Resolution Date Notes Provider Name and Address Organization Details Recorded Time Lumbosacral radiculopathy 6235465 Active 2023 ARAVIND DURBIN MD [address] [place], [address] 09:31:06 Problem Notes None recorded. Medical Equipment None Reported. Allergies No known drug allergies Medications Name Sig Start Date Stop Date Status Note LastModified by Organization Details LastModified Time clonidine HCl 0.1 mg tablet TAKE 1 TABLET BY MOUTH TWICE DAILY active Not Available Not Available No t Available prednisone 10 mg tablet TAKE FOUR TABLETS BY MOUTH EVERY DAY FOR 3 DAYS THEN 2 TABLETS EVERY DAY FOR 3 DAYS THEN 1 TABLET EVERY DAY FOR 3 DAYS THEN STOP active Not Available Not Available No t Available doxycycline hyclate 100 mg capsule TAKE ONE CAPSULE BY MOUTH EVERY TWELVE HOURS AT 9am AND 9pm FOR 10 DAYS -- FINISH ALL MEDICINE -- active Not Available Not Available Not Available cetirizine 10 mg tablet active Not Available Not Available Not Available pravastatin 40 mg tablet active Not Available Not Available Not Available albuterol sulfate 1.25 mg/3 mL solution for nebulization USE 3 ML IN NEBULIZER 4 TIMES DAILY NEEDED FOR SHORTNESS OF BREATH FOR WHEEZING active Not Available Not Available No t Available prednisone 20 mg tablet 2 tablets orally FOR 4 DAYS active Not Available Not Available No t Available amlodipine 5 mg tablet active Not Available Not Available No t Available aspirin 81 mg tablet,delay ed release active Not Available Not Available N ot Available doxycycline monohydrate 100 mg tablet TAKE 1 TABLET BY MOUTH TWICE DAILY FOR 10 DAYS active Not Available Not Available No t Available bisoprolol fumarate 5 mg tablet TAKE 1 TABLET BY MOUTH TWICE DAILY FOR BLOOD PRESSURE active Not Available Not Available No t Available amoxicillin 875 mg tablet TAKE ONE TABLET BY MOUTH EVERY TWELVE HOURS -- FINISH ALL MEDICINE -- active Not Available Not Available Not Available amlodipine 10 mg tablet active Not Available Not Available Not Available benzonatate 100 mg capsule TAKE ONE CAPSULE BY MOUTH THREE TIMES DAILY NEEDED FOR cough active Not Available Not Available No t Available triamcinolon e acetonide 0.1 % topical ointment USE TWICE DAILY ON THE EXTERNAL EAR active Not Available Not Available No t Available prednisone 50 mg tablet TAKE 1 TABLET BY MOUTH ONCE DAILY FOR 5 DAYS active Not Available Not Available No t Available nicotine 21 mg/24 hr daily transdermal patch 21 MG transdermal ly daily as needed as needed FOR nicotine cravings active Not Available Not Available No t Available verapamil ER (PM) 100 mg capsule 24hr pellet CT,ext.relea se TAKE 1 CAPSULE BY MOUTH AT BEDTIME NIGHTLY active Not Available Not Available No t Available hydrochlorot hiazide 25 mg tablet TAKE ONE TABLET BY MOUTH EVERY DAY active Not Available Not Available No t Available mirtazapine 15 mg tablet TAKE ONE TABLET BY MOUTH EVERY DAY AT BEDTIME active Not Available Not Available No t Available ibuprofen 600 mg tablet TAKE 1 TABLET BY MOUTH EVERY 6 HOURS NEEDED FOR MODERATE PAIN active Not Available Not Available No t Available levofloxacin 750 mg tablet TAKE 1 TABLET BY MOUTH ONCE DAILY FOR 7 DAYS active Not Available Not Available No t Available methylpredni solone 4 mg tablets in a dose pack TAKE BY MOUTH DIRECTED ON INSIDE OF PACKAGE active Not Available Not Available No t Available albuterol sulfate HFA 90 mcg/actuatio n aerosol inhaler INHALE TWO PUFFS BY MOUTH FOUR TIMES DAILY NEEDED SHORTNESS OF BREATH OR wheezing active Not Available Not Available Not Available fluticasone propionate 50 mcg/actuatio n nasal spray,suspen kamini USE 1 SPRAY(S) IN EACH NOSTRIL ONCE DAILY active Not Available Not Available N ot Available doxycycline hyclate 100 mg tablet 100 MG orally twice a DAY FOR 5 DAYS active Not Available Not Available N ot Available oxycodone 5 mg tablet TAKE ONE TABLET BY MOUTH EVERY 4 HOURS NEEDED FOR PAIN MAY CAUSE DROWSINESS active Not Available Not Available N ot Available olmesartan 40 mg tablet active Not Available Not Available Not Available cholecalcife rol (vitamin D3) 1,250 mcg (50,000 unit) capsule TAKE ONE CAPSULE BY MOUTH EVERY WEEK active Not Available Not Available No t Available Linzess 145 mcg capsule TAKE ONE CAPSULE BY MOUTH EVERY DAY active Not Available Not Available No t Available Anoro Ellipta 62.5 mcg-25 mcg/actuatio n powder for inhalation INHALE 1 PUFF BY MOUTH ONCE DAILY active Not Available Not Available No t Available guaifenesin ER 600 mg tablet, extended release 12 hr TAKE 1 OR 2 TABLET(S) BY MOUTH TWICE DAILY NEEDED FOR congestion active Not Available Not Available N ot Available Trelegy Ellipta 200 mcg-62.5 mcg-25 mcg powder for inhalation INHALE 1 PUFF BY MOUTH ONCE DAILY active Not Available Not Available No t Available Vitals Date Recorded Body weight Body temperature Respiratory rate Heart rate Systolic blood pressure Diastolic blood pressure Provider Name and Address Organization Details Last Updated DateTime 4 98651.7 4 g 97.9 [degF] 16 /min 61 /min 127 mm[Hg] 71 mm[Hg] [facility] 4 10:05:23 Date Recorded Respiratory rate Body temperature Heart rate Body weight Systolic blood pressure Diastolic blood pressure Provider Name and Address Organization Details Last Updated DateTime 4 16 /min 97.3 [degF] 60 /min 66320.9 3 g 125 mm[Hg] 68 mm[Hg] [facility] 4 09:16:38 Social History Question Answer Notes LastModified by Organizat ion Details LastModified Time Tobacco Smoking Status Current Every Day Smoker [facility] 04/27/2024 10:08:03 What Is Your Level Of Caffeine Consumption? Moderate Information not available 04/27/2024 How Much Tobacco Do You Smoke? 0.5 PPD Information not available 04/27/2024 Sex: Unknown Functional Status Question Answer Note LastModified by Organization D etails LastModified Time What is your level of alcohol consumption? None Information not available 04/27/2024 Mental Status None recorded. Family History Nothing Reported. Medical History No medical history recorded. Gynecological HistoryNo gynecological history recorded. Obstetrics History GPAL:G 0 P 0 0 0 0 Immunizations Vaccine Type Date Status Note Provider Nam e and Address Organization Details Recorded Time SARS-COV-2 (COVID-19) vaccine, UNSPECIFIED 04/06/2024 [place] [facility] 04/27/2024 10:06:04 Past Encounters Encounter ID Performer Location Encounter Start Date Encounter Closed Date Diagnosis/Indication Diagnosis SNOMED-CT Code Diagnosis ICD10 Code Diagnosis Note [id number] ARAVIND DURBIN MD [address] [place] [id number] 04/27/2024 09:09:33 04/27/2024 16:20:53 Lumbago with sciatica 243862824 M54.42 Long-term current use of opiate analgesic drug 1721155945 86392 Z79.891 Diagnostic /Lab: Order Presumptiv e UDT (necessary for rapid results) with Definitive confirmati on for chronic pain patient, to define treatment and reinforce therapeuti c compliance ; the following apply: [Presumpti ve UDT includes: (Amp, Brianne, Scott, Bup, THC, DINO, ETOH, Meth, Opi, Oxy )] *-Patient is receiving controlled medication s. *-Presumpt vick UDT to identify presence of illicit/no n-prescrib ed substance( s) - Confirm positive for ongoing safe prescribin g of controlled substances . *-Presumpt vick UDT to identify presence of licit/pres cribed substance( s)-Confirm unexpected results, identify specific drug(s) in large class and ensure appropriat e use of prescribed medication (s). *-Definiti ve UDT inadequate ly detected by Presumptiv e UDT (gabapenti n, pregabalin , tramadol, fentanyl, tapentadol and carisoprod ol). HP2 (CBC/CMP/G GT) CBC - ordered to monitor the effects of prescribed medication CMP/GGT - ordered to obtain baseline levels for renal and hepatic functions and electrolyt e statusdraw n to monitor the senior living effects of current medication . [id number] ARAVIND DURBIN MD [address] [place] [id number] 06/28/2024 09:11:44 06/28/2024 15:52:17 Lumbosacral radiculopathy 0789438 M54.16 Health Concerns Section Related Observation LastModified by Organization Detai ls LastModified Time None Recorded Concern Status LastModified by Organization Details LastModified Time None Recorded Advance Directives Directive None Recorded Payers Insurance Date Sequence Insurance Name Policy Number Policy Roberts Covered Member ID Roberts Member ID Guarantor Name 07/18/2024 1 [place] [id number] Efra Beyer [id number] [place] Notes Date Note Type Note Provider Name and Address Organization Details Recorded Time 04/27/2024 text/html [facility] report reviewed and compliant. Sent here for treatment of right leg pain and lower back. She received 3 epidural and 3rd helped some. Her right leg is numb to the knee She wants a 4th LESI. trans formal L45 bilateral. Pain is in lower back and mostly right leg. pain. Pain is sharp and keeps awake. Pain is interment. Pain is intense ad severe. Pain made better by heat. Pain made worse y sitting. Arabella does radiate, Patient is a NEW patient. Medical management in none. We will recommend L34 and L45 tranforminal epidura;l ARAVIND DURBIN MD [address] [facility] [address], [place], [address], [facility] 04/27/2024 10:40:31 06/28/2024 text/html [facility] report reviewed and compliant. Pain is in left leg and lower back. Pain feels like shooting pain. Pain keeps awake at night.Pain is constant. Pain is intense and severe. Pain made better by nothing. Pain made worse by nothing and anything. Pain does not radiate. Patient is a follow up. Last LESI did not work with L34 and L45 transforminal nerve block ARAVIND DURBIN MD [address] [facility] [address], [place], [address], [facility] 06/28/2024 09:34:26 OBGyn Episode No OBEpisode recorded.
--- NOTE | 2025-04-26 08:36 | XR_ITS ---
FINAL REPORT CLINICAL HISTORY: BONE PAIN COMPARISON: 12/15/2022 FINDINGS: Using L1-4, the bone mineral density of the spine is 0.961 g/cm2, corresponding to T-score of -0.8 which is within normal limits. Previously was 0.879 with a T-score of -1.5. Using the left hip, the bone mineral density of the femoral neck is 0.708 g/cm2, corresponding to a T-score of -1.3 which is consistent with osteopenia. Previously was 0.723 with a T-score of -1.1. Using the right hip, the bone mineral density of the femoral neck is 0.712 g/cm2, corresponding to a T-score of -1.2 which is consistent with osteopenia. Previously was 0.698 with a T-score of -1.4. FRAX 10 year fracture risk is 2.5% for a hip fracture and 12% for a major osteoporotic fracture. NOTE: T-score: Standard deviation compared with peak bone mass of young adult mean. *Following the recommendations of the International Society of Bone densitometry, classification of hip BMD is based on the lower of two T-scores; total hip or femoral neck. IMPRESSION: Diminished bone mineral density consistent with osteopenia. Reviewed, Interpreted and Dictated by Ruddy Amor MD Transcribed by Liat Kaye Authenticated and [facility]
[2025-04-26 08:39] LABS: Basophils # 0.1 K/mm3 (0-0.2); Basophils % 0.4 % (0.1-2.0); Eosinophils # 0.5 Kmm3 (0.0-0.4); Eosinophils % 2.5 % (0.1-12.0); Hematocrit 34.6 % (37.0-47.0); Hemoglobin 12.1 g/dL (12.2-16.2); Immature Granulocytes # 0.26 10^3uL; Immature Granulocytes % 1.4 %; Lymphocytes % 20.6 % (10-50); Mean Corpuscular Hemoglobin 33.1 pg (27.0-31.2); Mean Corpuscular Volume 94.5 fl (81-99); Mean Platelet Volume 9.3 fl (7.4-10.4); Monocytes # 1.7 K/mm3 (0.1-1.0); Monocytes % 8.8 % (1.7-9.3); Neutrophils # 12.7 K/mm3 (1.8-7.8); Neutrophils % 66.3 % (37.0-80.0); Nucleated Red Blood Cells # 0 10^3/uL; Nucleated Red Blood Cells % 0 %; Platelet Count 459 K/mm3 (142-424); Red Blood Count 3.66 M/mm3 (4.20-5.40); Red Cell Distribution Width 11.9 % (11.5-17.5); Red Cell Distribution Width-SD 41.2 fL; White Blood Count 19.1 K/mm3 (4.8-10.8)
[2025-04-26 08:41] LABS: MANUAL DIFFERENTIAL MANUAL DIFFERENTIAL (MANUAL DIFF)
[2025-04-26 09:06] LABS: Albumin Level 4.4 g/dl (3.5-5.0); Chloride 85 mmol/L (98-107); Sodium 122 mmol/L (136-145)
[2025-04-26 09:07] LABS: Potassium 4.3 mmoL/L (3.5-5.1)
[2025-04-26 09:09] LABS: Alanine Aminotransferase 26 U/L (12-78); Anion Gap 14.3 mEq/L (5-15); Aspartate Amino Transferase 34 U/L (14-36); Bilirubin,Unconjugated 0.4 mg/dL (0.0-1.1); Blood Urea Nitrogen 9 mg/dl (7-17); Carbon Dioxide 27 mmol/L (22.0-30.0); Cholesterol 168 mg/dl (140-200); Estimated Glomerular Filt Rate 122 ml/min (>60); GFR (African American) 148 ML/MIN (>60); Total Protein,Serum 6.7 g/dl (6.3-8.2); Triglycerides 95 mg/dl (30-150); VLDL Cholesterol 19 mg/dL (0-40)
[2025-04-26 09:10] LABS: Alkaline Phosphatase 61 U/L (38-126); Bilirubin,Direct 0.3 mg/dl (0.0-0.4); Bilirubin,Indirect 0.4 mg/dL (0.0-0.9); Bilirubin,Total 0.7 mg/dl (0.2-1.3); Calcium 9.2 mg/dl (8.4-10.2); Chol/HDL Ratio 2.2 (1-3.5); Glucose 91 mg/dl (74-100); HDL Cholesterol 76 mg/dl (40-60); Magnesium 1.6 mg/dl (1.6-2.3)
[2025-04-26 09:21] LABS: Direct LDL Cholesterol 62.27 mg/dL (100-129)
[2025-04-26 09:26] LABS: Free T4 (Free Thyroxine) 1.34 ng/dl (0.78-2.19)
[2025-04-26 09:29] LABS: Eosinophils % 4 % (0-3); Lymphocytes % 21 % (10-50); Monocytes % 8 % (2-9); Neutrophils % 67 % (42-76); Total Cells Counted 100
[2025-04-26 09:30] LABS: Platelet Estimate Slight Increase; RBC Morphology Normal
[2025-04-26 09:41] LABS: Thyroid Stimulating Hormone 0.55 uIU/mL (0.465-4.68)
== END 2025-04-26 23:59 | disposition home or self-care (01) ==
PROVIDERS: Internal Medicine; PCP Nurse Practitioner; Visit Provider Nurse Practitioner
DX: M85.80 Other specified disorders of bone density and structure, unspecified site (principal); I10 Essential (primary) hypertension
CPT/HCPCS: 36415; 77080; 80048; 80061; 80076; 83735; 84439; 84443; 85007; 85025; 85027

== ENCOUNTER 2025-04-28 13:41 | Emergency (ER) | payer BC, SELFPAY ==
[2025-04-28] VITALS (7 sets, daily range): BP systolic 99–139; BP diastolic 50–64; PULSE 65–88; RESP 18–19; TEMP 36.7–36.9; O2SAT 95–98; BMI 28.3
--- OUTSIDE RECORDS SUMMARY | 2025-04-28 13:49 | XMS_ITS | Continuity of Care Document ---
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 Plan of [...] quantitat mat, serum or plasma 2024 025 [email or web address] Not available 03/29/2025 12:56:46 bcr/alb1, quantitat mat PCR, blood or tissue 2024 025 Not available 03/29/2025 12:56:46 chronic leukemia panel, flow cytometry , unspecifi ed specimen 2024 025 [email or web address] Not available 03/30/2025 08:40:44 jak2 (V617F) mutation, blood/tis tony 2024 025 [email or web address] Not available 03/30/2025 08:40:44 carbon monoxide, QN, blood 2024 025 [email or web address] Not available 03/29/2025 12:56:47 iron + TIBC + ferritin, serum 2024 025 [email or web address] Not available 03/29/2025 12:56:47 iron saturatio n, serum 2024 025 [email or web address] Not available 03/29/2025 12:56:47 vitamin B12 + folate, serum or blood 2024 025 [email or web address] Not available 03/29/2025 12:56:47 mma (methylma lonic acid), serum 2024 025 [email or web address] Not available 03/29/2025 12:56:47 Referral None recorded. Procedures None recorded. Surgeries None recorded. Imaging None recorded. Medication Orders None recorded. Patient TargetsNo targets recorded. Patient InstructionsNo instructions recorded. Reason for Referral None Reported. Problems Name Problem SNOMED Code Status Onset Date Resolution Date Notes Provider Name and Address Organization Details Recorded Time Chronic idiopathic constipati on 13787054 Active 2024 Nikos Higginbotham PA-C [address], [place], [address] , [place] - [facility] & [place] 5 09:32:05 Blood-ting ed feces 8173314021842 02 Active 2024 Nikos Higginbotham PA-C [address], [place], [address] , [place] [facility] & [place] 5 09:32:10 Hemorrhoid s 83465813 Active 2024 Nikos Higginbotham PA-C [address], [place], [address] , [place] - [facility] & [place] 5 09:32:18 Decrease in appetite 29133561 Active 2024 Nikos Higginbotham PA-C [address], [place], [address] , [place] - [facility] - [place] & [place] 09:34:40 Generalize d abdominal pain 131880920 Active [address], [place], [address] , [place] [facility] [place] & [place] 09:35:09 Problem Notes None recorded. Procedures Surgical History Date Name Laterality Status Provider Name and Address Organization Details Recorded Time 05/10/20 25 Venipuncture active [address], [place], [address], [place] [facility] [place] & [place] 04/26/2025 13:50:28 03/22/20 Venipuncture completed Danna Marks NINI - [facility] & [place] 03/22/2025 09:33:48 total hysterectomy completed Karlee Cross NINI - [facility] & [place] 03/22/2025 09:02:54 cholecystectomy completed Char TERRAZAS - [facility] & [place] 03/22/2025 09:03:05 colonoscopy completed Char Cross [place] - [facility] & [place] 03/22/2025 09:03:38 Imaging Results None recorded. Procedure Notes None recorded. Medical Equipment None Reported. Allergies Allergen ID Allergen Name Allergen Category Reaction Reaction Severity Criticality Documentation Date Start Date Code Code System Note Provider Name and Address Organization Details Recorded Time 923484 tramadol medicatio n Not available Not available [facility] 03/22/2025 74506 RxNorm NINI Valentino - [facility] & [place] 08:54:39 595270 Bactrim medicatio n Not available Not available [facility] 03/22/2025 86935 9 RxNorm Char lundberg [place] - [facility] & [place] 08:54:57 501466 levofloxa katy medicatio n Not available Not available high 03/22/2025 90787 RxNorm Char Cross [facility], [place] - [place] - [place] & [place] 5 08:57:05 Medications Name Sig Start Date [...] Details Last Updated DateTime 5 165.1 cm 28.8 kg/m2 26264.8 4 g 98.6 [degF] 94 % 94 % 68 /min 116 mm[Hg] 61 mm[Hg] Char Cross [place] - [facility] - [place] & [place] 5 08:53:50 Social History Question Answer Notes LastModified by Organizat ion Details LastModified Time Tobacco Smoking Status Current Every Day Smoker Char Tay null, [place] [facility] [place] & [place] 03/22/2025 09:02:39 What Is Your Level Of Caffeine Consumption? Occasional [email or web address] Information not available 03/22/2025 What Was The Date Of Your Most Recent Tobacco Screening? 03/22/2025 [email or web address] Information not available 03/22/2025 At What Age Did You Start Smoking Tobacco? 15 Information not available 03/22/2025 How Much Tobacco Do You Smoke? 0.5 PPD [email or web address] Information not available 03/22/2025 Has Tobacco Cessation Counseling Been Provided? No [email or web address] Information not available 03/22/2025 Sex: Unknown Functional Status Question Answer Note LastModified by Organizat ion Details LastModified Time Do you use any illicit or recreational drugs? No [email or web address] Information not available 03/22/2025 Do you or have you ever used any other forms of tobacco or nicotine? No [email or web address] Information not available 03/22/2025 What is your level of alcohol consumption? None [email or web address] Information not available 03/22/2025 Mental Status None recorded. Family History Relationship Description Onset Age of this Age Resolved Age Notes LastModified by Organization Details LastModified Time Mother Malignant neoplasm of vertebral column [email or web address] Not available 03/22 08:59:33 Mother Cerebrovascu lar accident Not available 09:00:38 Father Malignant neoplasm of prostate [email or web address] Not available 03/22 08:59:55 Brother Malignant neoplasm of prostate mets to Bladde r [email or web address] Not available 03/22/2025 08:59:55 Sister Malignant neoplasm of lung Not available 03/22 09:00:04 Sister Aneurysm [email or web address] Not availab le 03/22/2025 09:01:43 Paternal Uncle Myocardial infarction [email or web address] Not available 03/03 09:01:10 Medical History No medical history recorded. Gynecological HistoryNo gynecological history recorded. Obstetrics History GPAL:G 0 P 0 0 0 0 Immunizations Vaccine Type Date Status Note Provider Nam e and Address Organization Details Recorded Time Influenza, high-dose, quadrivalent, PF 01/17/202 5 completed Char Tay [place], [place] 03/22/2025 08:54:06 Influenza, high-dose, quadrivalent, PF 0 completed Char Tay [place] 03/22/2025 08:54:06 COVID-19, mRNA, LNP-S, PF, 100 mcg/0.5mL dose or 50 mcg/0.25mL dose 2 completed Char Tay [place] 03/22/2025 08:54:06 COVID-19, mRNA, LNP-S, PF, 100 mcg/0.5mL dose or 50 mcg/0.25mL dose 1 completed Char Tay [place] 03/22/2025 08:54:06 COVID-19, mRNA, LNP-S, PF, 100 mcg/0.5mL dose or 50 mcg/0.25mL dose 1 completed Char Tay [place] 03/22/2025 08:54:06 pneumococcal polysaccharide PPV23 2 completed Char Tay [place] 03/22/2025 08:54:06 Pneumococcal conjugate PCV 13 1 completed Char Tay [place] 03/22/2025 08:54:06 Influenza, high-dose, trivalent, PF 2 completed Char Tay [place] [facility] [facility] & [place] 03/22/2025 08:54:06 Influenza, split virus, quadrivalent, PF 2 completed Char Tay [place] 03/22/2025 08:54:06 Past Encounters Encounter ID Performer Location Encounter Start Date Encounter Closed Date Diagnosis/Indication Diagnosis SNOMED-CT Code Diagnosis ICD10 Code Diagnosis Note [id number] Pravin Sanchez MD [facility] [address] [facility] [address] [place] [address] 03/22/2025 08:30:33 03/22/2025 09:18:49 Leukocytosis 790353290 D72.829 Patient with current smoking history. Patient [...] out other pathology. Encouraged smoking cessation. Anemia 415991348 D64.9 Labs performed February 27, 2025 with white blood cell count 12.5. Red blood cell count 3.72. Hemoglobin 12.6 and hematocrit 35.8. MCV 96.2.Mild normocytic anemia. Will follow up iron studies. Will follow up B12 and folate. Cobalamin deficiency 190 257043 E53.8 Prior history of B12 deficiency . Will follow up repeat labs. Vitamin D deficiency 347 36931 E55.9 Prior history of vitamin-D deficiency . Vitamin-D level normal on February 27, 2025. Would recommend bone density testing if patient has not already had. Cigarette smoker 6629867 7 F17.210 Patient with current smoking history. Patient smokes about 1/2 pack per day. Patient started smoking at age 14. Patient with 30 pack-year history of smoking. Due to smoking history discussed with patient low-dose lung cancer screening CT scan.Queenie nt recently had low-dose lung cancer screening CT scan in early 2024. Centriacin ar emphysema 86132748 J43.2 Patient with history of COPD. Currently on Trelegy. Follows with pulmonolog y. Health Concerns Section Related Observation LastModified by Organization Detai ls LastModified Time None Recorded Concern Status LastModified by Organization Details LastModified Time None Recorded Payers Encounter Date Sequence Insurance Name Policy Number Policy Roberts Covered Member ID Roberts Member ID Guarantor Name 03/22/2025 1 [employer] [id number] Efra Beyer [id number] Bhavana Beyer Notes Date Note Type [...] pathology. Encouraged smoking cessation. Pravin Sanchez MD [address], [place], [address], [place] [facility] 03/22/2025 10:13:29 OBGyn Episode No OBEpisode recorded.
--- OUTSIDE RECORDS SUMMARY | 2025-04-28 13:49 | XMS_ITS | Referral Summary ---
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
--- OUTSIDE RECORDS SUMMARY | 2025-04-28 13:49 | XMS_ITS | Data Portability ---
Author Organization [facility] Office Address [address] [address] Care Team Providers Care Tread Cutter Name Role Phone CATHY CONNORS Referring Provider [phone] Assessment No assessment recorded. Plan of Treatment Reminders Order Date Submit Date Provider Last Modified By Organization Details Last Modified Time Details Appointments None recorde d. Lab drug screen, urine - Meds: NPE/nws 2023 024 ESTEFANI Ochoa MD [facility] [address] [place], [address], 4 09:49:45 CMP, serum or plasma 2023 024 shania [facility]choa MD [facility] [address] [place], [address], 4 12:20:59 gamma-g lutamyl transfe rase (ggt), serum 2023 024 shania Ochoa MD [facility] [address] [place], [address], 4 12:20:59 CBC w/ auto diff 2023 024 shania Ochoa MD [facility] [address] [place], [address], 4 12:20:59 venipun cture 2023 024 [email or web address] Ada Ochoa MD [facility]), [address] [facility], [place], [address], 4 12:20:59 Referral [facility] (formerly [facility])[3]ra l - Beh Med eval as part of multi mode pain managem ent 2023 024 [facility] [address], [address] [facility], [facility] [address], [place], [address], 4 08:55:[address] refer l - Diagnos e and treat 2023 024 [email or web address] In [facility] ([facility]), [address] [place] [address] , [place], [address], 4 09:09:45 Procedures epidura l steroid injecti on, lumbar interla minar (PROC) - Order # [id number] interla adriana [id number] [address], [facility] [place], [address], 4 10:32:49 epidura l steroid injecti on, lumbar transfo raminal (PROC) - Order #[id number] 1 right L34 and L45 with sedatio n [address], [address] [place], [address], 4 16:57:22 Surgeries None recorde d. Imaging None recorde d. Medication Orders None recorde d. Patient TargetsNo targets recorded. Patient Instructions Encounter Date Encounter Id Patient Instructions Last Modified By Organization Details Last Modified Time 04/27/[id number] Take medications EXACTLY as instructed. Call office for any problems DO NOT run out of medications and medications should last till next appointment. Notify office if going to be late or need to reschedule. [email or web address] Not available 04/27/2024 09:12:21 06/28/2024 [id number] back pain: care instructions [email or web address] Not available [...] Eugenie Ochoa MD [facility]) [address] [place] [address], [address], 04/27/2024 11:23:17 04/27/20 24 04/27/2024 COMPR EHENS VICK METAB OLIC PANEL (CMP) glucose 91.0 mg/dL 74.0 - 110.0 Not Available Ada Ochoa MD [facility]) [address] [place] [address], [address], 04/27/2024 11:23:17 04/27/20 24 04/27/2024 COMPR EHENS VICK METAB OLIC PANEL (CMP) BUN 11.0 mg/dL 4.0 - 25.0 Not Available Ada Ochoa MD [facility]) [address] [place] [address], [address], 04/27/2024 11:23:17 04/27/20 24 04/27/2024 COMPR EHENS VICK METAB OLIC PANEL (CMP) creatinine 0.6 mg/dL 0.6 - 1.8 Not Available Ada Ochoa MD [facility] (In House Lab) [address] [place] [address], [address], 04/27/2024 11:23:17 04/27/20 24 04/27/2024 COMPR EHENS VICK METAB OLIC PANEL (CMP) sodium 134 mEq/L 133 - 145 Not Available Ada Ochoa MD [facility] (In House [facility]) [address] [place] [address], [address], 04/27/2024 11:23:17 04/27/20 24 04/27/2024 COMPR EHENS VICK METAB OLIC PANEL (CMP) potassium 4.4 mEq/L 3.4 - 5.1 Not Available Ada Ochoa MD [facility] (In House [facility]) [address] [place] [address], [address], 04/27/2024 11:23:17 04/27/20 24 04/27/2024 COMPR EHENS VICK METAB OLIC PANEL (CMP) chloride 99.3 mEq/L 93.0 - 106.0 Not Available Ada Ochoa MD [facility] (In House [facility]) [address] [place] [address], [address], 04/27/2024 11:23:17 04/27/20 24 04/27/2024 COMPR EHENS VICK METAB OLIC PANEL (CMP) eco2 29.0 mEq/L 24.6 - 35.8 Not Available Ada Ochoa MD [facility] (In House [facility]) [address] [place] [address], [address], 04/27/2024 11:23:17 04/27/20 24 04/27/2024 COMPR EHENS VICK METAB OLIC PANEL (CMP) calcium 9.3 mg/dL 8.3 - 10.1 Not Available Ada Ochoa MD [facility] (In House [facility]) [address] [place] [address], [address], 04/27/2024 11:23:17 04/27/20 24 04/27/2024 COMPR EHENS VICK METAB OLIC PANEL (CMP) total protein 6.6 g/dL 6.0 - 8.5 Not Available Ada Ochoa MD [facility] (In House [facility]) [address] [place] [address], [address], 04/27/2024 11:23:17 04/27/20 24 04/27/2024 COMPR EHENS VICK METAB OLIC PANEL (CMP) albumin 4.4 g/dL 3.3 - 4.9 Not Available Ada Ochoa MD [facility] (In House [facility]) [address] [place] [address], [address], 04/27/2024 11:23:17 04/27/20 24 04/27/2024 COMPR EHENS VICK METAB OLIC PANEL (CMP) ALP 72.0 U/L 46.0 - 116.0 Not Available Ada Ochoa MD [facility] (In House [facility]) [address] [place] [address], [address], 04/27/2024 11:23:17 04/27/20 24 04/27/2024 COMPR EHENS VICK METAB OLIC PANEL (CMP) AST 20 U/L 6 - 40 Not Available Ada Ochoa MD [facility] (In House [facility]) [address] [place] [address], [address], 04/27/2024 11:23:17 04/27/20 24 04/27/2024 COMPR EHENS VICK METAB OLIC PANEL (CMP) ALT 19 U/L 5 - 30 Not Available Ada Ochoa MD [facility] ([facility]) [address] [place] [address], [address], 04/27/2024 11:23:17 04/27/20 24 04/27/2024 COMPR EHENS VICK METAB OLIC PANEL (CMP) total bilirubin 0.74 mg/dL 0.00 - 1.00 Not Available Ada Ochoa MD [facility] (In House [facility]) [address] [place] [address], [address], 04/27/2024 11:23:17 04/27/20 24 04/27/2024 CBC WITH DIFFE RENTI AL/PL ATELE T WBC 12.3 10 4.0 - 11.0 high Not Available Ada Ochoa MD [facility] (In [facility]) [address] [place] [address], [address], 04/27/2024 11:23:16 04/27/20 24 04/27/2024 CBC WITH DIFFE RENTI AL/PL ATELE T RBC 3.89 10 3.72 - 5.52 Not Available Ada Ochoa MD [facility] ([facility]) [address] [place] [address], [address], 04/27/2024 11:23:16 04/27/20 24 04/27/2024 CBC WITH DIFFE RENTI AL/PL ATELE T HGB 13.0 g/dL 11.0 - 16.6 Not Available Ada Ochoa MD [facility] ([facility]) [address] [place] [address], [address], 04/27/2024 11:23:16 04/27/20 24 04/27/2024 CBC WITH DIFFE RENTI AL/PL ATELE T HCT 38.1 % 34.0 - 49.0 Not Available Ada Ochoa MD [facility] ([facility]) [address] [place] [address], [address], 04/27/2024 11:23:16 04/27/20 24 04/27/2024 CBC WITH DIFFE RENTI AL/PL ATELE T MCV 97.9 fL 79.5 - 101.0 Not Available Ada Ochoa MD [facility]) [address] [place] [address], [address], 04/27/2024 11:23:16 04/27/20 24 04/27/2024 CBC WITH DIFFE RENTI AL/PL ATELE T MCH 33.4 pg 26.2 - 34.0 Not Available Ada Ochoa MD [facility] ([facility]) [address] [place] [address], [address], 04/27/2024 11:23:16 04/27/20 24 04/27/2024 CBC WITH DIFFE RENTI AL/PL ATELE T MCHC 34.1 g/dL 31.3 - 36.0 Not Available Ada Ochoa MD [facility] ([facility]) [address] [place] [address], [address], 04/27/2024 11:23:16 04/27/20 24 04/27/2024 CBC WITH DIFFE RENTI AL/PL ATELE T plt 377 10 115 - 421 Not Available Ada Ochoa MD [facility] ([facility]) [address] [place] [address], [address], 04/27/2024 11:23:16 04/27/20 24 04/27/2024 CBC WITH DIFFE RENTI AL/PL ATELE T RDW-CV 12.9 % 11.3 - 16.1 Not Available Ada cOhoa MD [facility] ([facility]) [address] [place] [address], [address], 04/27/2024 11:23:16 04/27/20 24 04/27/2024 CBC WITH DIFFE RENTI AL/PL ATELE T neut# 8.34 10 0.81 - 9.65 Not Available Ada Ochoa MD [facility] ([facility]) [address] [place] [address], [address], 04/27/2024 11:23:16 04/27/20 24 04/27/2024 CBC WITH DIFFE RENTI AL/PL ATELE T lymph# 2.41 10 0.65 - 4.81 Not Available Ada Ochoa MD [facility] ([facility]) [address] [place] [address], [address], 04/27/2024 11:23:16 04/27/20 24 04/27/2024 CBC WITH DIFFE RENTI AL/PL ATELE T mono# 0.92 10 0.10 - 1.13 Not Available Ada Ochoa MD [facility] ([facility]) [address] [place] [address], [address], 04/27/2024 11:23:16 04/27/20 24 04/27/2024 CBC WITH DIFFE RENTI AL/PL ATELE T eo# 0.58 10 0.00 - 0.50 high Not Available Ada Ochoa MD [facility] ([facility]) [address] [place] [address], [address], 04/27/2024 11:23:16 04/27/20 24 04/27/2024 CBC WITH DIFFE RENTI AL/PL ATELE T baso# 0.09 10 0.00 - 0.09 Not Available Ada Ochoa MD [facility] ([facility]) [address] [place] [address], [address], 04/27/2024 11:23:16 04/27/20 24 04/27/2024 CBC WITH DIFFE RENTI AL/PL ATELE T neut% 67.6 % 37.2 - 78.0 Not Available Ada Ochoa MD [facility] ([facility]) [address] [place] [address], [address], 04/27/2024 11:23:16 04/27/20 24 04/27/2024 CBC WITH DIFFE RENTI AL/PL ATELE T lymph% 19.5 % 13.4 - 50.2 Not Available Ada Ochoa MD [facility] ([facility]) [address] [place] [address], [address], 04/27/2024 11:23:16 04/27/20 24 04/27/2024 CBC WITH DIFFE RENTI AL/PL ATELE T mono% 7.5 % 3.4 - 12.0 Not Available Ada Ochoa MD [facility]) [address] [place] [address], [address], 04/27/2024 11:23:16 04/27/20 24 04/27/2024 CBC WITH DIFFE RENTI AL/PL ATELE T eo% 4.7 % 0.0 - 7.0 Not Available Ada Ochoa MD [facility]) [address] [place] [address], [address], 04/27/2024 11:23:16 04/27/20 24 04/27/2024 CBC WITH DIFFE RENTI AL/PL ATELE T baso% 0.7 % 0.0 - 3.0 Not Available Ada Ochoa MD [facility]) [address] [facility], [place], [address], 04/27/2024 11:23:16 Result Notes None recorded. Problems Name Problem SNOMED Code Status Onset Date Resolution Date Notes Provider Name and Address Organization Details Recorded Time Lumbosacral radiculopathy 4322888 Active 2023 ARAVIND DURBIN MD [address] [place], [address] 09:31:06 Problem [...] Address Organization Details Last Updated DateTime 4 31698.7 4 g 97.9 [degF] 16 /min 61 /min 127 mm[Hg] 71 mm[Hg] [facility] 4 10:05:23 Date Recorded Respiratory rate Body temperature Heart rate Body weight Systolic blood pressure Diastolic blood pressure Provider Name and Address Organization Details Last Updated DateTime 4 16 /min 97.3 [degF] 60 /min 32700.9 3 g 125 mm[Hg] 68 mm[Hg] Lula [...] SARS-COV-2 (COVID-19) vaccine, UNSPECIFIED 04/06/2024 completed Lula [place], [place] - [facility] 04/27/2024 10:06:04 Past Encounters Encounter ID Performer Location Encounter Start Date Encounter Closed Date Diagnosis/Indication Diagnosis SNOMED-CT Code Diagnosis ICD10 Code Diagnosis Note [id number] ARAVIND DURBIN MD [address] [place] [address] 4 04/27/2024 09:09:33 04/27/2024 16:20:53 Lumbago with sciatica 524072802 M54.42 Long-term current use of opiate analgesic drug 0993397752 39769 Z79.891 Diagnostic /Lab: Order Presumptiv e UDT [...] electrolyt e statusdraw n to monitor the rat exterminator effects of current medication . [id number] ARAVIND DURBIN MD [address] [place] [address] 06/28/2024 09:11:44 06/28/2024 15:52:17 Lumbosacral radiculopathy 6606694 M54.16 Health Concerns Section Related Observation LastModified by Organization Detai ls LastModified Time None Recorded Concern Status LastModified by Organization Details LastModified Time None Recorded Advance Directives Directive None Recorded Payers Insurance Date Sequence Insurance Name Policy Number Policy Roberts Covered Member ID Roberts Member ID Guarantor Name 07/18/2024 1 [employer] [id number] Efra Beyer [id number] Bhavana [place] Notes Date Note Type Note Provider Name and Address Organization Details Recorded Time 04/27/2024 text/html [facility] report reviewed and compliant. Sent here [...] L45 tranforminal epidura;l ARAVIND DURBIN MD [address] [facility] [address], [place], [address], [facility] 04/27/2024 10:40:31 06/28/2024 text/html [facility] report reviewed and compliant. Pain is [...] L45 transforminal nerve block ARAVIND DURBIN MD [address] [facility] [address], [place], [address], [facility] 06/28/2024 09:34:26 OBGyn Episode No OBEpisode recorded.
--- OUTSIDE RECORDS SUMMARY | 2025-04-28 13:49 | XMS_ITS | Data Portability ---
Author Organization [place] - [facility] & MIGUEL Gregory ADMIN Address [address] [place] [id number] Care Team Providers Care Irrigation Tax Assessor Collector Name Role Phone SHILOH DUNLAP Primary Care Provider Assessment Encounter Date Assessment Date Assessment LastModified by Organization Details LastModified Time 04/25/2025 04/25/2025 69-year-old female with generalized abdominal pain, poor appetite, rectal bleeding, and significant constipation [email or web address] Not available 04/25/2025 10:12:13 Plan of Treatment [...] quantitat vick, serum or plasma 2024 025 [email or web address] Not available 03/29/2025 12:56:46 bcr/alb1, quantitat vick PCR, blood or tissue 2024 025 [email or web address] Not available 03/29/2025 12:56:46 chronic leukemia panel, flow cytometry , unspecifi ed specimen 2024 025 [email or web address] Not available 03/30/2025 08:40:44 jak2 (V617F) mutation, blood/tis tony 2024 025 [email or web address] Not available 03/30/2025 08:40:44 carbon monoxide, QN, blood 2024 025 [email or web address] Not available 03/29/2025 12:56:47 iron + TIBC + ferritin, serum 2024 025 [email or web address] Not available 03/29/2025 12:56:47 iron saturatio n, serum 2024 025 Not available 03/29/2025 12:56:47 vitamin B12 + folate, serum or blood 2024 025 [email or web address] Not available 03/29/2025 12:56:47 mma (methylma lonic acid), serum 2024 025 Not available 03/29/2025 12:56:47 Referral None recorded. Procedures None recorded. Surgeries None recorded. Imaging None recorded. Medication Orders lubiprost one 24 mcg capsule 2024 025 [facility], [address], [address], 04/25/2025 09:41:00 hydrocort isone 2.5 % topical cream with perineal applicato r 2024 025 [facility], [address], [address], 04/25/2025 09:40:59 Patient TargetsNo targets recorded. Patient InstructionsNo instructions recorded. Reason for Referral None Reported. Results Created Date Observation Date Name Description Value Unit Range Abnormal Flag Note LastModifiedBy Organization Detail LastModifiedTime 05/21/20 25 03/22/2025 CBC AUTO W DIFF WBC 16.8 K/uL 4.0-10 .5 high Not Available [facility] ([facility]) [address] , [place], [address], 03/22/2025 11:05:59 03/22/20 25 03/22/2025 CBC AUTO W DIFF RBC 3.3 M/mm3 4.2-6. 4 low Not Available [facility] ([facility]) [address] , [place], [address], 03/22/2025 11:05:59 03/22/20 25 03/22/2025 CBC AUTO W DIFF HGB 11.2 gm/dL 12.5-1 6.0 low Not Available [facility] ([facility]) [address] , [place], [address], 03/22/2025 11:05:59 03/22/20 25 03/22/2025 CBC AUTO W DIFF HCT 32.5 % 37.0-4 7.0 low Not Available [facility] ([facility]) [address] , [place], [address], 03/22/2025 11:05:59 03/22/20 25 03/22/2025 CBC AUTO W DIFF MCV 97.3 fL 78-100 Not Available [facility] ([facility]) [address] , [place], [address], 03/22/2025 11:05:59 03/22/20 25 03/22/2025 CBC AUTO W DIFF MCH 33.5 pg 27-31 high Not Available [facility] ([facility]) [address] [place], [address], 03/22/2025 11:05:59 03/22/20 25 03/22/2025 CBC AUTO W DIFF MCHC 34.5 g/dL 32-36 Not Available [facility] ([facility]) [address] [place], [address], 03/22/2025 11:05:59 03/22/20 25 03/22/2025 CBC AUTO W DIFF RDW 12.4 % 11.5-1 4.0 Not Available [facility] ([facility]) [address], [place], [address], 03/22/2025 11:05:59 03/22/20 25 03/22/2025 CBC AUTO W DIFF platelet count 435 K/uL 150-45 0 Not Available [facility] ([facility]) [address], [place], [address], 03/22/2025 11:05:59 03/22/20 25 03/22/2025 CBC AUTO W DIFF MPV 9.8 fL 6-9.5 high Not Available [facility] ([facility]) [address] [place], [address], 03/22/2025 11:05:59 03/22/20 25 03/22/2025 CBC AUTO W DIFF neutrophil% 70.6 % 43-65 high Not Available [facility] ([facility]) [address] [facility], [place], [address], 03/22/2025 11:05:59 03/22/20 25 03/22/2025 CBC AUTO W DIFF lymphocyte% 18.4 % 20.5-4 5.5 low Not Available [facility] ([facility]) [address] [place], [address], 03/22/2025 11:05:59 03/22/20 25 03/22/2025 CBC AUTO W DIFF monocyte% 7.7 % 5.5-11 .7 Not Available [facility] ([facility]) [address] [place], [address], 03/22/2025 11:05:59 03/22/20 25 03/22/2025 CBC AUTO W DIFF eosinophil% 1.8 % 0.9-2. 9 Not Available [facility] ([facility]) [address] [place], [address], 03/22/2025 11:05:59 03/22/20 25 03/22/2025 CBC AUTO W DIFF basophil% 0.4 % 0.2-1. 0 Not Available [facility] ([facility]) [address] [place], [address], 03/22/2025 11:05:59 03/22/20 25 03/22/2025 CBC AUTO W DIFF immature granulocytes % 1.1 % 0.0-0. 8 high Not Available [facility] ([facility]) [address] [place], [address], 03/22/2025 11:05:59 03/22/20 25 03/22/2025 CBC AUTO W DIFF nucleated red blood cells % 0.0 % Not Available [facility] ([facility]) [address] [place], [address], 03/22/2025 11:05:59 03/22/20 25 03/22/2025 CBC AUTO W DIFF neutrophil# 11.8 K/uL 2.2-4. 8 high Not Available [facility] ([facility]) [address] [place], [address], 03/22/2025 11:05:59 03/22/20 25 03/22/2025 CBC AUTO W DIFF lymphocyte# 3.1 cell/ mcL 1.3-2. 9 high Not Available [facility] ([facility]) [address] [place], [address], 03/22/2025 11:05:59 03/22/20 25 03/22/2025 CBC AUTO W DIFF monocyte# 1.3 cell/ mcL 0.3-0. 8 high Not Available [facility] ([facility]) [address] [place], [address], 03/22/2025 11:05:59 03/22/20 25 03/22/2025 CBC AUTO W DIFF eosinophil# 0.3 cell/ mcL 0-0.2 high Not Available [facility] ([facility]) [address] [place], [address], 03/22/2025 11:05:59 03/22/20 25 03/22/2025 CBC AUTO W DIFF basophil# 0.1 cell/ mcL 0.0-1. 0 Not Available [facility] ([facility]) [address] [place], [address], 03/22/2025 11:05:59 03/22/20 25 03/22/2025 CBC AUTO W DIFF immature gramulocytes # 0.19 K/uL Not Available [facility] ([facility]) [address] [facility], [place], [address], 03/22/2025 11:05:59 03/22/20 25 03/22/2025 CBC AUTO W DIFF nucleated red blood cells # 0.00 K/uL Not Available [facility] ([facility]) [address] [place], [address], 03/22/2025 11:05:59 03/22/20 25 03/22/2025 CBC AUTO W DIFF manual differential NO Not Available [facility] ([facility]) [address] [place], [address], 03/22/2025 11:05:59 03/22/20 25 03/22/2025 IRON STUDY (IRON /TIBC /%SAT ) iron 101 mcg/m L 40-180 Not Available [facility] ([facility]) [address] [place], [address], 03/22/2025 11:24:45 03/22/20 25 03/22/2025 IRON STUDY (IRON /TIBC /%SAT ) TIBC 314 mcg/d L 250-45 0 Not Available [facility] ([facility]) [address] , [place], [address], 03/22/2025 11:24:45 03/22/20 25 03/22/2025 IRON STUDY (IRON /TIBC /%SAT ) %sat 32 15-55 Not Available [facility] ([facility]) [address], [place], [address], 03/22/2025 11:24:45 03/22/20 25 03/22/2025 COMP METAB OLIC PANEL sodium 134 mmol/ L 136-14 5 low Not Available [facility] ([facility]) [address], [place], [address], 03/22/2025 11:40:58 03/22/20 25 03/22/2025 COMP METAB OLIC PANEL potassium 4.1 mmol/ L 3.6-5. 0 Not Available [facility] ([facility]) [address], [place], [address], 03/22/2025 11:40:58 03/22/20 25 03/22/2025 COMP METAB OLIC PANEL chloride 98 mmol/ L 98-107 Not Available [facility] ([facility]) [address], [place], [address], 03/22/2025 11:40:58 03/22/20 25 03/22/2025 COMP METAB OLIC PANEL carbon dioxide 27.1 mmol/ L 21.0-3 2.0 Not Available [facility] ([facility]) [address] [place], [address], 03/22/2025 11:40:58 03/22/20 25 03/22/2025 COMP METAB OLIC PANEL anion gap 13.0 Not Available [facility] ([facility]) [address] [place], [address], 03/22/2025 11:40:58 03/22/20 25 03/22/2025 COMP METAB OLIC PANEL glucose 92 mg/dL 70-120 Not Available [facility] ([facility]) [address] [facility], [place], [address], 03/22/2025 11:40:58 03/22/20 25 03/22/2025 COMP METAB OLIC PANEL BUN 12 mg/dL 7-18 Not Available [facility] ([facility]) [address] [facility], [place], [address], 03/22/2025 11:40:58 03/22/20 25 03/22/2025 COMP METAB OLIC PANEL creatinine 0.7 mg/dL 0.6-1. 3 Not Available [facility] ([facility]) [address] [facility], [place], [address], 03/22/2025 11:40:58 03/22/20 25 03/22/2025 COMP METAB [...] caraballo ing kiney funct ion. Not Available [facility] ([facility]) [address] [facility], [place], [address], 03/22/2025 11:40:58 03/22/20 25 03/22/2025 COMP METAB OLIC PANEL osmolality (calculated) 279 mOsm/ kg 275-30 1 OSMOL ALITY IS A CALCU LATIO N UTILI ZING THE SERUM /PLAS MA SODIU M, GLUCO SE AND UREA NITRO GEN (BUN) LEVEL S. FOR THE MOST ACCUR ATE RESUL T A MEASU RED SERUM OSMOL ALITY IS SUGGE STED. Not Available [facility] ([facility]) [address] [facility], [place], [address], 03/22/2025 11:40:58 03/22/20 25 03/22/2025 COMP METAB OLIC PANEL total protein 6.5 g/dL 6.4-8. 2 Not Available [facility] ([facility]) [address] , [place], [address], 03/22/2025 11:40:58 03/22/20 25 03/22/2025 COMP METAB OLIC PANEL albumin 3.4 g/dL 3.4-5. 0 Not Available [facility] ([facility]) [address] , [place], [address], 03/22/2025 11:40:58 03/22/20 25 03/22/2025 COMP METAB OLIC PANEL globulin 3.1 Not Available [facility] ([facility]) [address] , [place], [address], 03/22/2025 11:40:58 03/22/20 25 03/22/2025 COMP METAB OLIC PANEL alb/glob ratio 1.1 0.7-2 Not Available [facility] ([facility]) [address] , [place], [address], 03/22/2025 11:40:58 03/22/20 25 03/22/2025 COMP METAB OLIC PANEL calcium 8.7 mg/dL 8.5-10 .5 Not Available [facility] ([facility]) [address] , [place], [address], 03/22/2025 11:40:58 03/22/20 25 03/22/2025 COMP METAB OLIC PANEL bilirubin total 0.60 mg/dL 0.10-1 .00 Not Available [facility] ([facility]) [address] , [place], [address], 03/22/2025 11:40:58 03/22/20 25 03/22/2025 COMP METAB OLIC PANEL AST (SGOT) 19 U/L 0-37 Not Available [facility] ([facility]) [address] [facility], [place], [address], 03/22/2025 11:40:58 03/22/20 25 03/22/2025 COMP METAB OLIC PANEL ALT (SGPT) 35 U/L 0-65 Not Available [facility] ([facility]) [address] [facility], [place], [address], 03/22/2025 11:40:58 03/22/20 25 03/22/2025 COMP METAB OLIC PANEL alk phosphatase 64 U/L 46-116 Not Available [facility] ([facility]) [address] [facility], [place], [address], 03/22/2025 11:40:58 03/22/20 25 03/22/2025 LDH (LD) LDH 194 U/L 0-190 high Not Available [facility] ([facility]) [address] [facility], [place], [address], 03/22/2025 11:41:00 03/22/20 25 03/22/2025 C-FARRAH CTIVE PROTE IN (CRP) C-reactive protein, quant 0.8 mg/dL 0.05-0 .300 high Not Available [facility] ([facility]) [address] [facility], [place], [address], 03/22/2025 11:41:02 03/22/20 25 03/22/2025 RICK TIN ferritin, serum 222 NG/mL 3-244 Not Available [facility] ([facility]) [address] [place], [address], 03/22/2025 11:41:03 03/22/20 25 03/22/2025 VITAM IN B12 vitamin B12 1117 pg/mL 193-98 6 high *Note : Refer ence Kelvin Davis. New Test Metho d in use. Not Available [facility] ([facility]) [address], [place], [address], 03/22/2025 11:51:56 03/22/20 25 03/22/2025 VITAM IN B12 folate (folic acid), serum 9.6 NG/mL 8.6-58 .9 *Note : Refer ence Inter shalonda tellez. New Test Metho d in use. Not Available [facility] ([facility]) [address], [place], [address], 03/22/2025 11:51:56 03/22/20 25 03/28/2025 METHY LMALO HERI ACID QUANT methylmaloni c acid, serum 141 nmol/ L 0-378 Speci men Comme nt: Test( s) 47892 7-Met hylma lonic Acid, Serum Speci men Comme nt: was devel oped and its perfo rmanc e hugh cte risti cs Speci men Comme nt: deter mined by [facility]. It has not been rosi ared or appro chyna Speci men Comme nt: by the Food and Drug Admin istra tion. Perfo rmed at: - [place] [address] [facility] , [place] [address] Lab Direc tor: Diann guerin MD, Phone : [phone] Not Available [facility] ([facility]) [address] , [place], [address], 03/28/2025 06:09:59 03/22/20 25 03/28/2025 BCR-A BL1 [...] e hugh cteri stics deter mined by [employer] [facility]. It has not been clear ed or appro chyna by the Food and Drug Admin istra tion. Not Available [facility] ([facility]) [address] [facility], [place], [address], 03/28/2025 10:11:03/22/2003/28/2025 BCR-A BL1 RT-PC R interpretati on: Negati ve NEGAT VICK for the BCR-A BL1 e1a2 (p190 ), e13a2 (b2a2 , p210) and e14a2 (b3a2 , p210) fusio n trans cript s. These resul ts do not rule out the prese nce of rare BCR-A BL1 trans cript s not detec calvin by this assay . Not Available [facility] ([facility]) [address] [facility], [place], [address], 03/28/2025 10:11:03/22/2003/28/2025 BCR-A BL1 RT-PC R b2a2 transcript <0.003 2 % % Not Available [facility] ([facility]) [address] [place], [address], 03/28/2025 10:11:03/22/20 25 03/28/2025 BCR-A BL1 RT-PC R b3a2 transcript <0.003 2 % % Not Available [facility] ([facility]) [address] [facility], [place], [address], 03/28/2025 10:11:09 03/22/2003/28/2025 BCR-A BL1 RT-PC R e1a2 transcript <0.003 2 % % Not Available [facility] ([facility]) [address] , [place], [address], 03/28/2025 10:11:09 03/22/2003/28/2025 BCR-A BL1 RT-PC R pdf image . Perfo rmed at: [facility] [place] [address] [place], [place] [address] Lab Direc tor: Tomasa Alejandre [facility] , Phone : [phone] Perfo rmed at: TG - [facility] [place] [address] , [place] [address] Lab Direc tor: Changkaylee Alejandre [facility] , Phone : [phone] Not Available [facility] ([facility]) [address] , [place], [address], 03/28/2025 10:11:09 03/22/2003/28/2025 BCR-A BL1 RT-PC R [...] matio n as indic ated. Not Available [facility] ([facility]) [address] , [place], [address], 03/28/2025 10:11:09 03/22/20 25 03/28/2025 BCR-A BL1 [...] P, Kenn tafoya P, et al. Estab [facility] ent of the of the first [employer] [facility] h Organ izati on Inter natio nal Emily ic Refer ence Panel for quant itati on of BCR-A BL mRNA. Blood . 2010 25; 116(2 2):e1 11-11 7. Not Available [facility] ([facility]) [address], [place], [address], 03/28/2025 10:11:09 03/22/20 25 03/28/2025 BCR-A BL1 RT-PC R director review: Allan powell Techn ical [place] nent perfo rmed at [facility] [place] . Ceasar flores al [place] nent perfo rmed by: Radha Neslon, PhD, FAC[facility] Direc tor, Molec ular Oncol ogy [facility] [place] YWYUD [address] Res[facility] [id number] [phone] Not Available [facility] ([facility]) [address], [place], [address], 03/28/2025 10:11:09 03/22/20 25 03/29/2025 CARBO N MONOX NUVIA QN(CA RBOXY HEM) carbon monoxide, blood TNP TEST NOT PERFO RMED SPECI MEN CLOTT ED--P ATIEN T WILL BE MACHADO D BACK FOR RECOL LECTI ON Not Available [facility] ([facility]) [address], [place], [address], 03/29/2025 12:52:01 03/22/2003/29/2025 CHRON IC LEUKE MOMO/L YMPHO MA specimen type Commen t . Perip heral blood Not Available [facility] ([facility]) [address], [place], [address], 03/29/2025 13:11:53 03/22/20 25 03/29/2025 CHRON IC LEUKE MOMO/L YMPHO MA clinical information Commen t . A recen t CBC was not avail able for revie w at the time this r eport was prepa red. Not Available [facility] ([facility]) [address], [place], [address], 03/29/2025 13:11:53 03/22/20 25 03/29/2025 CHRON IC [...] as inves tigat ional or for resea [facility]. Perfo rmed at: -Y - [facility] [place] [address] [place], [place] [address] Lab Direc tor: Tomasa Alejandre [facility] , Phone : [phone] Perfo rmed at: TG - [facility] [place] [address] , [place] [address] Lab Direc tor: Tomasa COLEShD , Phone : [phone] Not Available [facility] ([facility]) [address], [place], [address], 03/29/2025 13:11:53 03/22/20 25 03/29/2025 CHRON IC LEUKE MOMO/L YMPHO MA flow comment Commen t . JAK2 V617F mutat ion joon sis is reque sted and the resul t is pendi ng. Previ ous negat vick pheno typic resul t was revie wed (02/19 ) . Not Available [facility] ([facility]) [address] [facility], [place], [address], 03/29/2025 13:11:53 03/22/20 25 03/29/2025 CHRON IC LEUKE MOMO/L YMPHO MA flow interpretati on Commen t . No signi fican t immun ophen otypi c abnor malit y detec calvin Not Available [facility] ([facility]) [address], [place], [address], 03/29/2025 13:11:53 03/22/20 25 03/29/2025 CHRON IC [...] ells 90%, NK cells 3%. Not Available [facility] ([facility]) [address], [place], [address], 03/29/2025 13:11:53 03/22/20 25 03/29/2025 CHRON IC LEUKE MOMO/L YMPHO MA resulting path name Commen t . Magdiel Arnett M.D. Ph.D Not Available [facility] ([facility]) [address] [facility], [place], [address], 03/29/2025 13:11:53 03/22/20 25 03/29/2025 CHRON IC LEUKE MOMO/L YMPHO MA phenotype chart Commen t . CD2 Herminia l CD3 Herminia l CD4 Herminia l CD5 Herminia l [...] Herminia l KAPPA Herminia l LAMBD A Herminia l Not Available [facility] ([facility]) [address] [facility], [place], [address], 03/29/2025 13:11:53 03/22/20 25 03/29/2025 CHRON IC LEUKE MOMO/L YMPHO MA analysis and gating strategy Commen t . 8 color joon sis with CD45/ SSC minerva ha Techn ical- Joon sis perfo rmed at [facility], [facility] [employer] [facility] [employer], [address] [place] [address] , Direc tor: Tomasa Alejandre , [facility] , [phone] Not Available [facility] ([facility]) [address] [facility], [place], [address], 03/29/2025 13:11:53 03/22/20 25 03/29/2025 CHRON IC LEUKE MOMO/L YMPHO MA viability Commen t . 84% Not Available [facility] ([facility]) [address] [facility], [place], [address], 03/29/2025 13:11:53 03/22/20 25 03/29/2025 JAK2 V617 [...] with these disor ders. . Not Available [facility] ([facility]) [address], [place], [address], 03/29/2025 13:11:54 03/22/20 25 03/29/2025 JAK2 V617 MUTAT ION DETEC TION director review Vasileen t Radha Nelson, PhD, [facility] Direc tor, [facility] Oncol o[facility] [place] [address] [phone] . This test was devel oped and its perfo rmanc e hugh cteri stics deter mined by [facility]. It has not been clear ed or appro chyna by the Food and Drug Admin istra tion. Perfo rmed at: [facility] [place] [address] [facility], [place] [address] Lab Direc tor: Tomasa Alejandre [facility] , Phone : [phone] Perfo rmed at: F[facility] - [facility] [place] [address] , [place] [address] Lab Direc tor: Tomasa Alejandre [facility] , Phone : [phone] Not Available [facility] ([facility]) [address] , [place], [address], 03/29/2025 13:11:54 03/22/20 25 03/29/2025 JAK2 V617 MUTAT ION DETEC TION background Commen t . JAK2 is a cytop lasmi c tyros ine kinas e with a sneed role in signa l trans ducti on from multi ple hemat opoie tic growt h facto r slipper maker tors. A point mutat ion withi n [...] ders. Ty t. 2005 Jan 18 ; 365(1 072): 1054- 1061. David Sandoval, Theo V, Indu deutsch MARLA. A uniqu e clona l JAK2 mutat ion leadi ng to const ituti ve signa ling cause s polyc ythae momo vera. Natestefani e. 2004Feb 27; 434(5 835): 1143- 1147. Stan connolly R, Yudi galeana F, Marcie , et al. A gain- of- funct ion mutat ion of JAK2 in myelo proli ferat vick disor ders. N Engl J Med. 2005 Feb 27; 352(1 7):17 79-17 90. Not Available [facility] ([facility]) [address] [facility], [place], [address], 03/29/2025 13:11:54 03/22/20 25 03/29/2025 CARBO N [...] BN - [facility] [place] [address] [facility] , [place] [address] Lab Direc tor: Diann guerin MD, Phone : [phone] Not Available [facility] ([facility]) [address] [facility], [place], [address], 03/29/2025 13:11:55 Result Notes None recorded. Problems Name Problem SNOMED Code Status Onset Date Resolution Date Notes Provider Name and Address Organization Details Recorded Time Chronic idiopathic constipati on 52108455 Active [address], [place], [place], [address] [place] [address] , [place] - [facility] [place] 5 09:32:05 Blood-ting ed feces 3694333842232 02 Active [address], [place], [place], [address] [place] [address] , [place] - [facility] [place] 5 09:32:10 Hemorrhoid s 41830785 Active [address], [place] [address] , [facility] - [facility] [place] 5 09:32:18 Decrease in appetite 50847798 Active [address], [place] [address] , [facility] - [facility] [place] 5 09:34:40 Generalize d abdominal pain 734384013 Active [address], [place] [address] , [facility] - [facility] [place] 5 09:35:09 Problem Notes None recorded. Procedures Surgical History Date Name Laterality Status Provider Name and Address Organization Details Recorded Time 05/10/20 25 Venipuncture active [address], [place], [place], [address] [place] [address], [place] - [facility] [place] 04/26/2025 13:50:28 03/22/20 25 Venipuncture completed Danna Marks [facility] [place] 03/22/2025 09:33:48 total hysterectomy completed Karlee TERRAZAS [facility] [place] 03/22/2025 09:02:54 cholecystectomy completed Char TERRAZAS [facility] [place] 03/22/2025 09:03:05 colonoscopy completed Char RIVERA [facility] [place] 03/22/2025 09:03:38 Imaging Results None recorded. Procedure Notes None recorded. Medical Equipment None Reported. Allergies Allergen ID Allergen Name Allergen Category Reaction Reaction Severity Criticality Documentation Date Start Date Code Code System Note Provider Name and Address Organization Details Recorded Time 028249 tramadol medicatio n Not available Not available [facility] 03/22/2025 25122 RxNorm NINI Valentino [facility] & [place] 5 08:54:39 073300 Bactrim medicatio n Not available Not available [facility] 03/22/2025 78145 9 RxNorm NINI Valentino [facility] [place] 5 08:54:57 675241 levofloxa katy medicatio n Not available Not available [facility] 03/22/2025 29811 RxNorm NINI Valentino [facility] [place] 5 08:57:05 Medications Name Sig Start Date [...] Last Updated DateTime 165.1 cm 28.8 kg/m2 34796.8 4 g 98.6 [degF] 94 % 94 % 68 /min 116 mm[Hg] 61 mm[Hg] Char Tay [facility] & [place] 08:53:50 Date Recorded Body height Body mass index (BMI) Body weight Body temperature Oxygen saturation Oxygen saturation in Arterial blood by Pulse oximetry Heart rate Systolic blood pressure Diastolic blood pressure Provider Name and Address Organization Details Last Updated DateTime 165.1 cm 28.7 kg/m2 11257.3 2 g 97.2 [degF] 95 % 95 % 72 /min 134 mm[Hg] 72 mm[Hg] Ute Brooks [facility] & [place] 09:08:45 Social History Question Answer Notes LastModified by [employer] Details LastModified Time Tobacco Smoking Status Current Every Day Smoker Char Tay [facility] & [place] 03/22/2025 09:02:39 What Is Your Level Of Caffeine Consumption? Occasional [email or web address] Information not available 03/22/2025 What Was The Date Of Your Most Recent Tobacco Screening? 03/22/2025 [email or web address] Information not available 03/22/2025 At What Age Did You Start Smoking Tobacco? 15 [email or web address] Information not available 03/22/2025 How Much Tobacco Do You Smoke? 0.5 PPD [email or web address] Information not available 03/22/2025 Has Tobacco Cessation Counseling Been Provided? No [email or web address] Information not available 03/22/2025 Sex: Unknown Functional Status Question Answer Note LastModified by [employer] Details LastModified Time Do you use any illicit or recreational drugs? No [email or web address] Information not available 03/22/2025 Do you or have you ever used any other forms of tobacco or nicotine? No [email or web address] Information not available 03/22/2025 What is your level of alcohol consumption? None [email or web address] Information not available 03/22/2025 Mental Status None recorded. Family History Relationship Description Onset Age of this Age Resolved Age Notes LastModified by Organization Details LastModified Time Mother Malignant neoplasm of vertebral column Not available 03/22 08:59:33 Mother Cerebrovascu lar accident [email or web address] Not available 09:00:38 Father Malignant neoplasm of prostate [email or web address] Not available 03/22 08:59:55 Brother Malignant neoplasm of prostate mets to Bladde r [email or web address] Not available 03/22/2025 08:59:55 Sister Malignant neoplasm of lung [email or web address] Not available 03/22 09:00:04 Sister Aneurysm [email or web address] Not availab le 03/22/2025 09:01:43 Paternal Uncle Myocardial infarction [email or web address] Not available 03/03 09:01:10 Medical History No medical history recorded. Gynecological HistoryNo gynecological history recorded. Obstetrics History GPAL:G 0 P 0 0 0 0 Immunizations Vaccine Type Date Status Note Provider Nam e and Address Organization Details Recorded Time Influenza, high-dose, quadrivalent, PF 5 completed Char lundbegr, [place] - [facility] [place] 03/22/2025 08:54:06 Influenza, high-dose, quadrivalent, PF 0 completed Char lundberg, [place] - [facility] [place] 03/22/2025 08:54:06 COVID-19, mRNA, LNP-S, PF, 100 mcg/0.5mL dose or 50 mcg/0.25mL dose 2 completed Char lundberg, [place] - [facility] [place] 03/22/2025 08:54:06 COVID-19, mRNA, LNP-S, PF, 100 mcg/0.5mL dose or 50 mcg/0.25mL dose 1 completed NINI Valentino - [facility] - [place] & [place] 03/22/2025 08:54:06 COVID-19, mRNA, LNP-S, PF, 100 mcg/0.5mL dose or 50 mcg/0.25mL dose 1 completed Char Cross null, NINI - [facility] - [place] & [place] 03/22/2025 08:54:06 pneumococcal polysaccharide PPV23 2 completed Char Cross null, [place] - [facility] - [place] & [place] 03/22/2025 08:54:06 Pneumococcal conjugate PCV 13 1 completed Char lundberg, NINI - [facility] - [place] & [place] 03/22/2025 08:54:06 Influenza, high-dose, trivalent, PF 2 completed Char lundberg, NINI - [facility] - [place] & [place] 03/22/2025 08:54:06 Influenza, split virus, quadrivalent, PF 2 completed Char Cross null, NINI - [facility] - [place] & [place] 03/22/2025 08:54:06 Past Encounters Encounter ID Performer Location Encounter Start Date Encounter Closed Date Diagnosis/Indication Diagnosis SNOMED-CT Code Diagnosis ICD10 Code Diagnosis Note [id number] Pravin Sanchez MD [facility] [address] [facility] [address] [place] [address] 03/22/2025 08:30:33 03/22/2025 09:18:49 Leukocytosis 138484655 D72.829 Patient with current smoking history. Patient [...] out other pathology. Encouraged smoking cessation. Anemia 975157226 D64.9 Labs performed February 27, 2025 with white blood cell count 12.5. Red blood cell count 3.72. Hemoglobin 12.6 and hematocrit 35.8. MCV 96.2.Mild normocytic anemia. Will follow up iron studies. Will follow up B12 and folate. Cobalamin deficiency 190 971889 E53.8 Prior history of B12 deficiency . Will follow up repeat labs. Vitamin D deficiency 347 42053 E55.9 Prior history of vitamin-D deficiency . Vitamin-D level normal on February 27, 2025. Would recommend bone density testing if patient has not already had. Cigarette smoker 3499058 7 F17.210 Patient with current smoking history. Patient smokes about 1/2 pack per day. Patient started smoking at age 14. Patient with 30 pack-year history of smoking. Due to smoking history discussed with patient low-dose lung cancer screening CT scan.Queenie devries recently had low-dose lung cancer screening CT scan in early 2024. Centriacin ar emphysema 26802235 J43.2 Patient with history of COPD. Currently on Trelegy. Follows with pulmonolog y. [id number] Nikos Higginbotham PA-C [facility] [address] 04/25/2025 08:56:30 04/25/2025 09:59:49 Chronic idiopathic constipation 26043165 K59.04 -Start Lubiprosto ne twice daily. She may use Miralax as needed in addition to this.-Cont inue fiber tablets-We discussed possible benefit of pelvic floor therapy. She states she does not think she can make the appointmen ts due to transporta tion issues. Blood-tinged feces 36970 48558 11460 K92.1 -Colonosco py is scheduled. Treat hemorrhoid s per below. Hemorrhoids 99675895 K64 .9 -Start topical hydrocorti sone. Decrease in appetite 643 21934 R63.0 -Potential ly due to constipati on. EGD has been scheduled. Generalize d abdominal pain 377034893 R10.84 -We will schedule EGD and colonoscop [...] ID Guarantor Name 04/22/2025 1 [place] [id number] Efra Beyer [id number] 40 Bhavana Beyer Notes Date Note Type [...] pathology. Encouraged smoking cessation. Pravin Sanchez MD [address], [place], [address], [place] - [facility] - [place] & [place] 03/22/2025 10:13:29 04/25/2025 text/html Ms. Beyer is [...] unable to schedule this. Nikos Higginbotham PA-C [address], [place], [address], [facility] - [place] & [place] 04/25/2025 10:14:57 OBGyn Episode No OBEpisode recorded.
--- OUTSIDE RECORDS SUMMARY | 2025-04-28 13:49 | XMS_ITS | Clinical Summary ---
Author Organization Healthcare Address [address] [place] [address] Care Team Providers Care Portfolio Mgr Name Role Phone Sepideh Talbot AAYUSH Primary Care Provider [phone] Medications Fluticasone-Umec lidin-Vilant (Trelegy Ellipta) 100-62.5-25 MCG/ACT [...] 2005 UKY-Zoster Vaccines (1 of 2) 2005 [id number] Vaccine ( season) 2024 11/15/2021, 02/06/2021, 01/02/2021 [...] patient's age to complete this topic Insurance [facility] [place] [address] Care Teams Portfolio Mgr Relationship Specialty Start Date End Date TalbotSepideh, COSTING MANAGER [address] [facility] [address] [place] [address] PCP - General 06/01/23
--- OUTSIDE RECORDS SUMMARY | 2025-04-28 13:49 | XMS_ITS | Data Portability ---
Author Organization formerly [facility] Address [address] [place] [address] Care Team Providers Care Letter Of Credit Document Examiner Name Role Phone SHILOH DUNLAP Referring Provider [phone] Assessment Encounter Date Assessment Date Assessment LastModified [...] Much of this encounter is an electronic automated process operator/tra nslation of spoken language to printed text. [...] and foraminal stenosis Lumbar flex ex 11/2024 [facility] Multiple levels of movement in the [...] legs, I will refer her back to [facility] for fusion evaluation. Lumbar flexion-extension x-ray was obtained at [facility] and reviewed today. External records were reviewed and discussed as above, including imaging, clinical notes, and relevant labs. Much of this encounter is an electronic automated process operator/tra nslation of spoken language to printed text. [...] nasal - additional dx: Z22.322 2023 024 [email or web address] [facility], [facility], [address] [place] [address], [address], 01/07/202 5 15:32:37 HbA1c (hemoglobi n A1c), blood - additional dx: 250.00 2023 024 [email or web address] [facility], [facility], [address] [place] [address], [address], 5 15:32:32 Referral orthopedic spine surgeon referral - has been evaluated in past, new unstable spondy found on flex/ex, worsening leg pain, minimal benefit from TFESI. Eval for fusion. 2024 025 [email or web address] Nuvia lynn MD, [address] [place], [address], 5 15:13:52 Procedures remote therapeuti c monitoring [...] TFESI John L5-S1 with no sed in [place] with Dr. Garcia LUKE 2023 024 Not available 4 13:43:03 Surgeries destructio n of intraosseo us basiverteb ral nerve, including imaging guidance, lumbar/sac rum (SURG) 2023 025 [email or web address] [facility], [address], [address], [place], [address], 5 16:19:45 Imaging XR, lumbosacra l spine, 4 or more view - AP/LAT/EXT /FLEX 2023 024 [email or web address] [facility], [address], [address], [place], [address], 15:29:29 Medication Orders Hibiclens 4 % topical liquid 2023 024 [facility], [address] [place] [address] [place], [id number], 17:32:40 Patient TargetsNo targets recorded. Patient Instructions Encounter Date Encounter Id Patient Instructions Last Modified By Organization Details Last Modified Time 08/26/2024 [id number] behavioral healt h screen* [email or web address] Not available 08/29/2024 10:41:36 back stretches: exercises [...] view No observ ation record ed. [email or web address] [facility] ([facility]yxru[facility]) [address], [place], [address], 08/26/2024 17:10:54 08/29/2010/28/2023 MRI, lumba r spine , w/o contr ast No observ ation record ed. [email or web address] Not Available 2023 15:41:20 Result Notes None recorded. Problems Name Problem SNOMED Code Status Onset Date Resolution Date Notes Provider Name and Address Organization Details Recorded Time Lumbar radiculopathy 908634333 Active 2023 NINI Delgado - [facility] 4 09:02:58 Lumbar spondylosis 500367429 Active 2023 [facility]INI Delgado - [facility] 4 09:02:58 Chronic pain 14956567 Active 2023 NINI Delgado - [facility] 4 09:02:58 Overweight 151159381 Active 2023 NINI Delgado - [facility] 4 09:03:01 Chronic low back pain 794880449 Active 2023 NINI Delgado - [facility] 4 10:09:18 Problem Notes None recorded. Procedures Surgical History Date Name Laterality Status Provider Name and Address Organization Details Recorded Time 09/20/20 24 Lumbar Transforaminal Epidural Steroid Injection (1 Level Bilateral): completed Farhana Darryl NINI - [facility] 09/20/2024 09:51:58 procedure on gallbladder completed Farhana [place] [facility]I - [facility] 08/26/2024 10:19:17 Imaging Results None recorded. Procedure Notes None recorded. Medical Equipment None Reported. Allergies Allergen ID Allergen Name Allergen Category Reaction Reaction Severity Criticality Documentation Date Start Date Code Code System Note Provider Name and Address Organization Details Recorded Time 108709 tramadol medicatio n Not available Not available Not available 08/26/2024 08334 RxNorm NINI Delgado - [facility] 4 09:08:40 925991 Levaquin medicatio n Not available Not available Not available 08/26/2024 47078 2 RxNorm NINI Delgado - [facility] 4 09:08:52 680010 Biaxin medicatio n Not available Not available Not available 08/26/202453996 9 RxNorm NINI Delgado - [facility] 4 09:09:04 Medications Name Sig Start [...] Updated DateTime 5 165.1 cm 28.5 kg/m2 52393.3 g 97 % 97 % 75 /min 131 mm[Hg] 80 mm[Hg] Yara Richards [facility] 5 11:13:54 Date Recorded Body height Body mass index (BMI) Body weight Oxygen saturation Oxygen saturation in Arterial blood by Pulse oximetry Heart rate Systolic blood pressure Diastolic blood pressure Provider Name and Address Organization Details Last Updated DateTime 4 165.1 cm 28.3 kg/m2 64691.7 g 95 % 95 % 62 /min 120 mm[Hg] 71 mm[Hg] Luisa Vivas [facility] 4 09:08:33 Social History Question Answer Notes LastModified by [email or web address] Details LastModified Time Tobacco Smoking Status Current Every Day Smoker Farhana lundberg [facility] 08/26/2024 10:18:30 Do You Have [...] Do You Have A Medical Power Of Assistant Front End Manager? No Information not available 08/26/2024 What Was [...] Ulcer Disease N Anemia N Heart Attack (PA) N Diabetes N Cardiomyopathy N Bleeding Disorder [...] SNOMED-CT Code Diagnosis ICD10 Code Diagnosis Note [id number] MD Mansoor BURGOSington [address] [place] [address] 08/26/2024 08:31:18 08/29/2024 09:09:04 Lumbar radiculopathy 010089809 M54.16 Chronic pain 24719180 G8 9.29 Chronic low back pain 27 8686793 M54.51 [id number] MD Mansoor BURGOSington [address] [place] [address] 09/20/2024 08:08:04 09/20/2024 09:49:16 Lumbar radiculopathy 728785836 M54.16 [id number] BAYRON GARCIA MD [facility] [address] [place] [address] 12/16/2024 10:38:46 12/16/2024 14:42:47 Chronic pain 95066278 G89.29 Lumbar radiculopathy 128 917646 M54.16 Health Concerns Section Related Observation LastModified by Organization Detai ls LastModified Time None Recorded Concern Status LastModified by Organization Details LastModified Time None Recorded Advance Directives Directive N: Payers Insurance Date Sequence Insurance Name Policy Number Policy Roberts Covered Member ID Roberts Member ID Guarantor Name 12/16/2024 1 [place] [id number] Efra Beyer [id number] Bhavana [place] Notes Date Note Type [...] independently.; Able to bathe/groom without assistance.;Cannot complete flake drier secondary to pain.; Walking without assistance or significant difficulty;Difficulty exercising on a regular basis secondary to pain.;Difficulty participating in recreation on a regular basis secondary to pain. Prior Imaging:MRI ([facility] - 10/28/23); 10/28/2023 MRI of Lumbar spine [facility] Lumbar Surgery:none Interventional Treatment History:lumbar ESIs: no relief Physical Therapy:Facility: ([place] [address]); PT discontinued by therapist/physician; complete 6weeks; dates: (05/11/2024 to 07/22/2024); response to therapy: no improvement in pain/symptoms Medications History:NSAIDs: (Ibuprofen 800 mg - not effective); Muscle relaxants: (Flexeril) Adverse Reactions:No nausea; No vomiting; No constipation; No itching Other Conservative Treatments:heat: effective Prior Pain Management:yes: ([facility]) Oswestry Disability Index (JIMENA)Score/Date Completed: (52 08/26/24) For Female Patients:Are you ? No New patient referred by for Low back pain. BAYRON GARCIA MD [address] [place] [address], [address], [facility] 08/26/2024 17:14:50 12/16/2024 text/html Low back [...] independently.; Able to bathe/groom without assistance.;Cannot complete flake drier secondary to pain.; Walking without assistance or significant difficulty;Difficulty exercising on a regular basis secondary to pain.;Difficulty participating in recreation on a regular basis secondary to pain. Prior Imaging:MRI ([facility] - 10/28/23); 10/28/2023 MRI of Lumbar spine [facility] Lumbar Surgery:none Interventional Treatment History:lumbar ESIs: no relief Physical Therapy:Facility: ([place] [address]); PT discontinued by therapist/physician; complete 6weeks; dates: (05/11/2024 to 07/22/2024); response to therapy: no improvement in pain/symptoms Medications History:NSAIDs: (Ibuprofen 800 mg - not effective); Muscle relaxants: (Flexeril) Adverse Reactions:No nausea; No vomiting; No constipation; No itching Other Conservative Treatments:heat: effective Prior Pain Management:yes: ([facility]) Oswestry Disability Index (JIMEAN)Score/Date Completed: (52 08/26/24) For Female Patients:Are you ? No BAYRON GARCIA MD [address] [place] [address], [address], [facility] 12/16/2024 13:43:16 OBGyn Episode No OBEpisode recorded.
--- OUTSIDE RECORDS SUMMARY | 2025-04-28 13:49 | XMS_ITS | Continuity of Care Document ---
Author Organization [place] - [facility] [place], [facility] Address [address] [place] [address] Care Team Providers Care Curve Cleaner Name Role Phone SHILOH DUNLAP Primary Care Provider Assessment Encounter Date Assessment Date Assessment LastModified by Organization Details LastModified Time 04/25/2025 04/25/2025 69-year-old female with generalized abdominal pain, poor appetite, rectal bleeding, and significant constipation [email or web address] Not available 04/25/2025 10:12:13 Plan of Treatment [...] lubiprost one 24 mcg capsule 2024 025 [facility] [place], [address], 04/25/2025 09:41:00 hydrocort isone 2.5 % topical cream with perineal applicato r 2024 025 [facility], [address] [place], [address], 04/25/2025 09:40:59 Patient TargetsNo targets recorded. Patient InstructionsNo instructions recorded. Reason for Referral None Reported. Problems Name Problem SNOMED Code Status Onset Date Resolution Date Notes Provider Name and Address Organization Details Recorded Time Chronic idiopathic constipati on 62630165 Active [address], [place], [address] , [place] - [facility] [place] 5 09:32:05 Blood-ting ed feces 8699891604916 02 Active [address], [place], [address] , [place] - [facility] [place] 5 09:32:10 Hemorrhoid s 21477168 Active [address], [place], [address] , [place] - [facility] [place] 09:32:18 Decrease in appetite 33685395 Active [address], [place], [address] , [place] - [facility] [place] 5 09:34:40 Generalize d abdominal pain 674993110 Active [address], [facility] [address] , [place] - [facility] [place] 5 09:35:09 Problem Notes None recorded. Procedures Surgical History Date Name Laterality Status Provider Name and Address Organization Details Recorded Time 05/10/20 25 Venipuncture active [address], [place], [address], [place] - [facility] [place] 04/26/2025 13:50:28 03/22/20 25 Venipuncture completed Danna Marks [place] - [facility] [place] 03/22/2025 09:33:48 total hysterectomy completed Karlee RIVERA [facility] [place] 03/22/2025 09:02:54 cholecystectomy completed Char RIVERA [facility] [place] 03/22/2025 09:03:05 colonoscopy completed Char RIVERA [facility] [place] 03/22/2025 09:03:38 Imaging Results None recorded. Procedure Notes None recorded. Medical Equipment None Reported. Allergies Allergen ID Allergen Name Allergen Category Reaction Reaction Severity Criticality Documentation Date Start Date Code Code System Note Provider Name and Address Organization Details Recorded Time 216052 tramadol medicatio n Not available Not available [facility] 03/22/2025 85011 RxNorm NINI Valentino [facility] [place] 5 08:54:39 547038 Bactrim medicatio n Not available Not available [facility] 03/22/2025 29923 9 RxNorm NINI Valentino [facility] [place] 5 08:54:57 543864 levofloxa katy medicatio n Not available Not available [facility] 03/22/2025 58721 RxNorm NINI Valentino [facility] [place] 5 08:57:05 Medications Name Sig Start Date [...] Last Updated DateTime 165.1 cm 28.7 kg/m2 98820.3 2 g 97.2 [degF] 95 % 95 % 72 /min 134 mm[Hg] 72 mm[Hg] [facility] [place] 09:08:45 Social History Question Answer Notes LastModified by Looxii Details LastModified Time Tobacco Smoking Status Current Every Day Smoker [facility], [facility] [place] 03/22/2025 09:02:39 What Is Your Level Of Caffeine Consumption? Occasional [email or web address] Information not available 03/22/2025 What Was The Date Of Your Most Recent Tobacco Screening? 03/22/2025 Information not available 03/22/2025 At What Age Did You Start Smoking Tobacco? 15 [email or web address] Information not available 03/22/2025 How Much Tobacco Do You Smoke? 0.5 PPD [email or web address] Information not available 03/22/2025 Has Tobacco Cessation Counseling Been Provided? No [email or web address] Information not available 03/22/2025 Sex: Unknown Functional Status Question Answer Note LastModified by [employer] ion Details LastModified Time Do you use any illicit or recreational drugs? No Information not available 03/22/2025 Do you or have you ever used any other forms of tobacco or nicotine? No [email or web address] Information not available 03/22/2025 What is your level of alcohol consumption? None [email or web address] Information not available 03/22/2025 Mental Status None recorded. Family History Relationship Description Onset Age of this Age Resolved Age Notes LastModified by Organization Details LastModified Time Mother Malignant neoplasm of vertebral column [email or web address] Not available 03/22 08:59:33 Mother Cerebrovascu lar accident [email or web address] Not available 09:00:38 Father Malignant neoplasm of prostate [email or web address] Not available 03/22 08:59:55 Brother Malignant neoplasm of prostate mets to Bladde r Not available 03/22/2025 08:59:55 Sister Malignant neoplasm of lung [email or web address] Not available 03/22 09:00:04 Sister Aneurysm [email or web address] Not availab le 03/22/2025 09:01:43 Paternal Uncle Myocardial infarction [email or web address] Not available 03/03 09:01:10 Medical History No medical history recorded. Gynecological HistoryNo gynecological history recorded. Obstetrics History GPAL:G 0 P 0 0 0 0 Immunizations Vaccine Type Date Status Note Provider Nam e and Address Organization Details Recorded Time Influenza, high-dose, quadrivalent, PF 5 completed Char [place], [place] - [facility] [place] 03/22/2025 08:54:06 Influenza, high-dose, quadrivalent, PF 0 completed Char [place], [place] - [facility] [place] 03/22/2025 08:54:06 COVID-19, mRNA, LNP-S, PF, 100 mcg/0.5mL dose or 50 mcg/0.25mL dose 2 completed Char [place], [place] - [facility] & [place] 03/22/2025 08:54:06 COVID-19, mRNA, LNP-S, PF, 100 mcg/0.5mL dose or 50 mcg/0.25mL dose 1 completed Char [place], [place] - [facility] & [place] 03/22/2025 08:54:06 COVID-19, mRNA, LNP-S, PF, 100 mcg/0.5mL dose or 50 mcg/0.25mL dose 1 completed Char lundberg [place] - [facility] [place] [facility] [place] 03/22/2025 08:54:06 pneumococcal polysaccharide PPV23 2 completed Char lundberg, [place] - [facility] [place] & [place] 03/22/2025 08:54:06 Pneumococcal conjugate PCV 13 1 completed Char lundberg, [place] - [facility] [place] & [place] 03/22/2025 08:54:06 Influenza, high-dose, trivalent, PF 2 completed Char lundberg, [place] - [facility] [place] & [place] 03/22/2025 08:54:06 Influenza, split virus, quadrivalent, PF 2 completed Char lundberg, [place] - [facility] - [place] & [place] 03/22/2025 08:54:06 Past Encounters Encounter ID Performer Location Encounter Start Date Encounter Closed Date Diagnosis/Indication Diagnosis SNOMED-CT Code Diagnosis ICD10 Code Diagnosis Note [id number] Nikos Higginbotham PA-C [facility] [address] [place] [address] 04/25/2025 08:56:30 04/25/2025 09:59:49 Chronic idiopathic constipation 83858142 K59.04 -Start Lubiprosto ne twice daily. She may use Miralax as needed in addition to this.-Cont inue fiber tablets-We discussed possible benefit of pelvic floor therapy. She states she does not think she can make the appointmen ts due to transporta tion issues. Blood-tinged feces 04207 02661 01746 K92.1 -Colonosco py is scheduled. Treat hemorrhoid s per below. Hemorrhoids 78604762 K64 .9 -Start topical hydrocorti sone. Decrease in appetite 643 43614 R63.0 -Potential ly due to constipati on. EGD has been scheduled. Generalize d abdominal pain 672154742 R10.84 -We will schedule EGD and colonoscop y for further evaluation of her abdominal pain and rectal bleeding Health Concerns Section Related Observation LastModified by Organization Detai ls LastModified Time None Recorded Concern Status LastModified by Organization Details LastModified Time None Recorded Payers Encounter Date Sequence Insurance Name Policy Number Policy Roberts Covered Member ID Roberts Member ID Guarantor Name 04/25/2025 1 [id number] Efra Beyer [id number] Bhavana Beyer Notes Date Note Type [...] unable to schedule this. Nikos Higginbotham PA-C [address], [place], [address], [place] - [facility] [place] [facility] [place] 04/25/2025 10:14:57 OBGyn Episode No OBEpisode recorded.
--- OUTSIDE RECORDS SUMMARY | 2025-04-28 13:49 | XMS_ITS | Clinical Summary ---
Author Organization [facility] Address [address] [place] [address] Care Team Providers Care Block Out Machine Operator Name Role Phone Analilia Mayer PA-C Primary Care Provider [phone] Allergies Active Allergy Reactions Criticality Noted Date [...] 2020 Insurance BLUE CROSS/BLUE SHIELD Care Teams Block Out Machine Operator Relationship Specialty Start Date End Date Analilia Mayer PA-C [address] [place] [address] PCP - General Physician Gear Grinder 06/10/24
--- NOTE | 2025-04-28 14:17 | XR_ITS ---
FINAL REPORT CLINICAL HISTORY: Shortness of breath COMPARISON: 04/08/2024 FINDINGS: A single frontal view of the chest was obtained. No acute pulmonary opacity is present. There is no evidence of effusion or pneumothorax. Mediastinum is unremarkable. Heart size is normal. IMPRESSION: No acute abnormality. Reviewed, Interpreted and Dictated by Ruddy Amor MD Transcribed by Liat Kaye Authenticated and [facility]
--- NOTE | 2025-04-28 14:25 | ED_ITS ---
<Statement entered by Aaron Petty MD - 04/29/25 10:41> I was consulted by the ADAN, and we discussed the complexity of the problems being addressed. I approved the treatment and management plan for this patient's care in the emergency department, thus performing a substantive portion of the medical decision making. Aaron Petty MD Discharge Plan Disposition Patient Disposition: Home, Self-Care Condition: Good Prescriptions Prescriptions: No Action olmesartan-hydrochlorothiazide 20-12.5 mg tablet 1 tab PO DAILY Qty: 90 3RF Rx Instructions: Take in the afternoon amlodipine [Norvasc] 5 mg tablet 5 mg PO HS Qty: 30 2RF bisoprolol fumarate 5 mg tablet 2.5 mg PO DAILY Qty: 30 5RF albuterol sulfate 1.25 mg/3 mL solution for nebulization 1.25 mg inhalation QID PRN (Reason: shortness of breath or wheezing) Qty: 90 3RF aspirin 81 mg tablet,delayed release (DR/EC) 81 mg PO DAILY Qty: 90 3RF Trelegy Ellipta 200-62.5-25 mcg blister with device 1 inh inhalation DAILY Qty: 90 3RF pravastatin 40 mg tablet 40 mg PO HS Qty: 90 3RF Linzess 145 mcg capsule 145 mcg PO DAILY Qty: 90 1RF albuterol sulfate 90 mcg/actuation HFA aerosol inhaler 2 inh inhalation QID PRN (Reason: shortness of breath or wheezing) Qty: 8.5 0RF nicotine 21 mg/24 hr Patch 24 Hour 21 mg transdermal DAILYP PRN (Reason: Nicotine Cravings) Qty: 28 2RF Referrals Follow up/Referrals: Ara Carrasco APRN [Primary Care Provider, Medical] - See instructions Activity Restrictions/Add. Instructions Additional Instructions/Restrictions: Please utilize your salt tablets, please discontinue your hydrochlorothiazide medication, please continue take all your other medication as prescribed, continue your antibiotic as prescribed please follow-up with your PCP in the upcoming days, continue to progress your diet, recommend good fluid intake, good solid intake. Please return to the emergency department any worsening signs or symptoms. Clinical Impressions Clinical Impression: Fatigue, Hyponatremia Instructions Patient Instructions: DI for Fatigue, DI for Hyponatremia Print Language Print Language: Bulgarian Discharge ED Provider: Vance Gatica General Adult HPI General Chief complaint: Recheck/Abnormal Lab/Rx Stated complaint: SOA, Low BP, Low sodium, ab labs Time Seen by Provider: 04/28/25 13:59 Mode of Arrival: Wheelchair Source of Information: Patient and Spouse Description of Symptoms (Recalled from ER Triage Doc. by RN): pt presents to ED with c/o low sodium. pt reports that she simply doesnt feel good and has not for the past two years. pt reports that she has had low sodium for previous blood draws but does not take any daily medications for this. pt had labs drawn a few days ago and was told to come to ED for low sodium, and high white blood cell count. History of Present Illness HPI narrative: 69-year-old female presents to the emergency department at the request of PCP with fatigue for the last several years, worsening in the last several months, also concern for hyponatremia, and some shortness of air, leukocytosis which she follows with hematology/oncology, ruled out any bone marrow pathology, thought to be more of a reactive process or autoimmune disorder, she has not yet followed up with rheumatology, patient denies any fever chills, admits to chronic cough, she is current everyday smoker, history of COPD, denies any chest pain, did have shortness of breath earlier today which is improved, somewhat chronic for her as well, denies any abdominal pain, Mr. Chronic constipation, with laxative use, last bowel movement was last night, did use magnesium citrate last night to achieve bowel movement, she states that she uses this rather infrequently, does have remote history of IBS-C, denies any diarrhea recently, denies urinary type symptomatology, denies any abdominal pain nausea or vomiting, denies any alcohol drug use. Does endorse history of remote UTI last week, was previously on unknown antibiotic, unable to tolerate, and then was placed on amoxicillin today, she is only taken 1 dose thus far. Other past medical history consistent with hypertension, TALIB, pulmonary nodule, hyperlipidemia. Initial triage vitals are unremarkable. Onset (ago): month(s) Related Data Previous Rx's ?Medication ?Instructions ?Recorded albuterol sulfate 1.25 mg/3 mL 1.25 mg (3 mL) inhalati on QID PRN 01/11/24 solution for nebulization shortness of breath or wheez ing #90 mL aspirin 81 mg tablet,delayed 81 mg PO DAILY #90 tabs 0 01/11/24 release fluticasone fur. 200 mcg-umeclid 1 inh inhalation TIN Y COPD #90 ea 01/11/24 62.5 mcg-vilant 25 mcg inhalat.powder (Trelegy Ellipta) pravastatin 40 mg tablet 40 mg PO HS . #90 tabs 01/10 nicotine 21 mg/24 hr daily 21 mg transdermal DAILYP AR N 04/09/24 transdermal patch Nicotine Cravings #28 ea albuterol sulfate 90 mcg/actuation 2 inh inhalation QI D PRN shortness 06/13/24 aerosol inhaler of breath or wheezing #8.5 g claudio linaclotide 145 mcg capsule 145 mcg PO DAILY #90 caps 06/30/24 (Linzess) olmesartan 20 1 tab PO DAILY #90 tabs 12/31 06/26 mg-hydrochlorothiazide 12.5 mg tablet amlodipine 5 mg tablet (Norvasc) 5 mg PO HS #30 tabs 0 04/19/25 bisoprolol fumarate 5 mg tablet 2.5 mg (1/2 x 5 mg) PO DAILY BLOOD 04/19/25 PRESSURE #30 tabs Allergies Allergy/AdvReac Type Severity Reaction Status Date / Time acetaminophen (From Tylenol) Allergy Verified 04/19/25 13:03 clarithromycin (From Biaxin) Allergy Verified 04/19/25 13:03 Sulfa (Sulfonamide Allergy Verified 04/19/25 13:03 Antibiotics) levofloxacin AdvReac Intermediate difficulty Verified 04/19/25 13:03 urinating tramadol AdvReac Intermediate Vomiting Verified 04/19/25 13:03 PFSH PFS Disclaimer: The information contained in this section may have been updated after the patient was seen, as this information can be updated by other users. 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 Surgical History History of laparoscopic cholecystectomy History of hysterectomy Family History Sister Lung cancer Brother Lung cancer Other Cancer Family history of DVT Family history of diabetes mellitus type II Family history of stroke Social History Smoking Status: Current every day smoker tobacco type: cigarettes packs per day: 1 alcohol intake: current alcohol intake frequency: a few times a week substance use type: denies use current occupational status: retired Travel in the last 8 weeks?: None household members: spouse housing: house caffeine: Yes Have you lived/traveled outside US in past 30 days?: No Contact w/someone who lives/traveled outside US past 30 days?: No Exposure to someone with infectious disease in past 14 days?: No Do you have a fever (greater than 100.4 F or 38 C)?: No Have you tested positive for COVID-19?: No Exposed to someone with COVID-19 in past 14 days?: No Do you have a sore throat?: No Do you have a cough?: No Do you have any weakness?: No Do you have any diarrhea?: No Are you experiencing any unusual bleeding?: No Do you have any muscle aches/pain?: No Do you have any abdominal pain?: No Are you experiencing loss of taste or smell?: No Other Medical History Have you received the Flu Vaccine for this season: No Have you received the Pneumonia Vaccine: Yes ROS Obtained: Yes All systems reviewed & no additional complaints except as documented Physical Exam General General appearance: alert, in no apparent distress and anxious Head Head exam: atraumatic and normocephalic Eye Eye exam: Present PERRL and EOMI ENT ENT exam: Present mucous membranes moist Neck Neck exam: Present normal inspection Chest Chest inspection: Present normal inspection and symmetric chest wall rise Respiratory Respiratory exam: Present normal lung sounds bilaterally; Absent respiratory distress Cardiovascular Cardiovascular exam: Present regular rate and normal rhythm Abdominal Exam Abdominal exam: Present soft; Absent tenderness, guarding, rebound or rigidity Extremities Exam Extremities exam: Present normal inspection Neurological Exam Neurological exam: Present alert and oriented X3 Psychiatric Psychiatric exam: Present normal affect Skin Skin exam: Present warm and dry Medical Decision Making Medical Records Medical records reviewed: Yes I reviewed the patient's medical records. Screening: Per USPSTF and CDC recommendations, given the prevalence of disease in our region, it is our hospital?s policy to screen for HIV and viral Hepatitis for all patients aged 18 and over and those with ongoing risk factors. Shaheed Inquiry Pt receiving controlled substance: No Shaheed was queried for this patient: No Vital Signs: 04/28/25 13:56 04/28/25 14:00 04/28/25 14:30 Temperature 98.0 F Temperature Source Oral Pulse Rate 82 Pulse Rate [Left Radial] 88 Respiratory Rate 19 Blood Pressure 111/64 Blood Pressure [Right Arm] 139/62 Blood Pressure Mean Blood Pressure Mean [Right Arm] 87 02 Sat by Pulse Oximetry 98 96 96 Oxygen Delivery Method Room Air Room Air Room Air 04/28/25 15:00 04/28/25 15:30 04/28/25 16:00 Temperature Temperature Source Pulse Rate 65 71 71 Pulse Rate [Left Radial] Respiratory Rate Blood Pressure 99/50 L 106/55 L 101/55 L Blood Pressure [Right Arm] Blood Pressure Mean 66 72 Blood Pressure Mean [Right Arm] 02 Sat by Pulse Oximetry 96 95 95 Oxygen Delivery Method Room Air Lab Data Lab results reviewed: Yes I reviewed the patient's lab results. Lab Results 04/28/25 14:25: WBC 11.8 H D, RBC 3.35 L, Hgb 11.5 L, Hct 31.6 L, MCV 94.3, MCH 34.3 H, MCHC 36.4 H, RDW 12.2, Plt Count 416, MPV 9.6, Neut % (Auto) 74.6, Lymph % (Auto) 7.9 L, [place] % (Auto) 7.1, Eos % (Auto) 8.8, Baso % (Auto) 0.3, Neut # (Auto) 8.8 H, Lymph # (Auto) 0.9, [place] # (Auto) 0.8, Eos # (Auto) 1.0 H, Baso # (Auto) 0.0, Sodium 127 L, Potassium 3.5, Chloride 88 L, Carbon Dioxide 32 H, Anion Gap 10.5, BUN 16 D, Creatinine 1.00 D, Estimated Creat Clear 65, E stimated GFR 55 L, Est GFR ( Amer) 67 D, Glucose 142 H, Calcium 9.5, M agnesium 1.9 D, Total Bilirubin 0.5, AST 35, ALT 35 D, Alkaline Phosphatase 69, Total Protein 6.3, Albumin 4.0, Globulin 2.3, Albumin/Globulin Ratio 1.7, HCV Ab NATO w/Rflx PCR Qn Negative, HIV Ag/Ab Combo Qual Negative 04/28/25 16:26: Urine Color Yellow, Urine Appearance Clear, Urine pH 7.0, Ur Specific [place] <= 1.005, Urine Protein Negative, Urine Glucose (UA) Negative, Urine Ketones Negative, Urine Blood Trace-i, Urine Nitrate Negative, Urine Bilirubin Negative, Urine Urobilinogen 0.2, Ur Leukocyte Esterase Negative, Urine RBC 3-5, Urine WBC 3-5, Ur Squamous Epith Cells 3-5, Urine Bacteria 2+ 04/28/25 14:25 04/28/25 14:25 Orders (Tests/Meds): ED MEDICATIONS Discontinued Medications Generic Name Dose Route Start Last Admin Trade Name Freq PRN Reason Stop Dose Admin Sodium Chloride 1,000 mls @ 999 mls/hr 04/28/25 14:17 04/28/25 14:35 Sod Chlor 0.9% 1000ml Bag IV 04/28/25 15:17 999 mls/hr .Q1H1M ONE Administration ORDERS Category Date Time Status XR chest portable Stat Exams 04/28/25 14:17 Completed Complete Blood Count Auto Diff Stat Lab 04/28/25 14:25 Completed Comprehensive Metabolic Panel Stat Lab 04/28/25 14:25 Completed HIV Combo Stat Lab 04/28/25 14:25 Completed Hepatitis C Ab Qual. W/ RFX Stat Lab 04/28/25 14:25 Completed Magnesium Stat Lab 04/28/25 14:25 Completed Urinalysis and Microscopic Stat Lab 04/28/25 16:26 Completed Urine Culture Stat Micro 04/28/25 16:26 Received Medical Decision Narrative: 69-year-old female presents the emergency department with multiple medical complaints, see HPI for detail past medical history, differential diagnosis include but not limited to panic attack, anxiety reaction, electrolyte disturbance, cardiac arrhythmia, acute UTI, pneumonia, medication side effect, acute UTI, malignancy among others. I discussed this patient's case with the attending physician Will obtain basic laboratory studies, will give 1 L IV NS, CXR, magnesium level, urinalysis. CBC is notable for mild leukocytosis at 11.8 hemoglobin hematocrit are stable at 11.5/31.6, CMP is notable for mild hyponatremia at 127, hypochloremia at 88, GFR is 55 I reviewed the patient's chest x-ray along with the corresponding radiologic report no acute abnormality. UA is notable for trace hematuria, negative nitrites, negative leukocyte esterase. I also discussed this patient's case with the attending physician discussed this patient's case with the hospitalist approximately 5:15 PM, recommend discontinuing HCTZ, containing salt tablets, and following up with PCP, no need for admission at this time as patient has no hyponatremia that is less than 125, symptomatic/symptoms have improved after 1 L IV NS, patient will follow-up with other providers as directed, was given strict ED return precautions. Patient plan voiced understanding. Critical Care Critical Care Time Critical Care Time: No
[2025-04-28] MEDS: 0.9 % SODIUM CHLORIDE 1000ML 1,000 ML 999 ML IV (14:35)
[2025-04-28 14:41] LABS: Basophils % 0.3 % (0.1-2.0); Eosinophils % 8.8 % (0.1-12.0); Hematocrit 31.6 % (37.0-47.0); Hemoglobin 11.5 g/dL (12.2-16.2); Immature Granulocytes # 0.15 10^3uL; Immature Granulocytes % 1.3 %; Lymphocytes # 0.9 K/mm3 (0.7-4.5); Lymphocytes % 7.9 % (10-50); Mean Corpuscular HGB Conc 36.4 g/dL (31.8-35.4); Mean Corpuscular Hemoglobin 34.3 pg (27.0-31.2); Mean Corpuscular Volume 94.3 fl (81-99); Mean Platelet Volume 9.6 fl (7.4-10.4); Monocytes # 0.8 K/mm3 (0.1-1.0); Monocytes % 7.1 % (1.7-9.3); Neutrophils # 8.8 K/mm3 (1.8-7.8); Neutrophils % 74.6 % (37.0-80.0); Nucleated Red Blood Cells # 0 10^3/uL; Nucleated Red Blood Cells % 0 %; Platelet Count 416 K/mm3 (142-424); Red Blood Count 3.35 M/mm3 (4.20-5.40); Red Cell Distribution Width 12.2 % (11.5-17.5); Red Cell Distribution Width-SD 42.8 fL; White Blood Count 11.8 K/mm3 (4.8-10.8)
[2025-04-28 14:45] LABS: Anion Gap 10.5 mEq/L (5-15); Blood Urea Nitrogen 16 mg/dl (7-17); Carbon Dioxide 32 mmol/L (22.0-30.0); Chloride 88 mmol/L (98-107); Creatinine Clearance Estimated 65 mL/min (50-200); Estimated Glomerular Filt Rate 55 ml/min (>60); Potassium 3.5 mmoL/L (3.5-5.1); Sodium 127 mmol/L (136-145)
[2025-04-28 14:46] LABS: Alanine Aminotransferase 35 U/L (12-78); Albumin/Globulin Ratio 1.7 (1.1-1.8); Alkaline Phosphatase 69 U/L (38-126); Aspartate Amino Transferase 35 U/L (14-36); Bilirubin,Total 0.5 mg/dl (0.2-1.3); Calcium 9.5 mg/dl (8.4-10.2); GFR (African American) 67 ML/MIN (>60); Globulin 2.3 g/dL (1.3-3.2); Glucose 142 mg/dl (74-100); Magnesium 1.9 mg/dl (1.6-2.3); Total Protein,Serum 6.3 g/dl (6.3-8.2)
[2025-04-28 15:42] LABS: HIV Combo NEGATIVE (Negative)
[2025-04-28 15:50] LABS: Hepatitis C Ab Qual. W/ RFX NEGATIVE (Negative)
[2025-04-28 16:32] LABS: Microscopic, Urine URINE MICROSCOPIC (MICROSCOPIC)
[2025-04-28 16:36] LABS: Appearance,Urine CLEAR (Clear); Bilirubin,Urine Negative (Negative); Blood, Urine TRACE-I (Negative); Color,Urine YELLOW (Yellow); Glucose,Urine (UA) Negative (Negative); Ketones,Urine Negative (Negative); Leukocyte Esterase,Urine Negative (Negative); Nitrate,Urine Negative (Negative); Protein,Urine Negative (Negative); Specific Gravity, Urine <= 1.005 (1.005-1.030); Urobilinogen,Urine 0.2 EU/dl (0.2)
[2025-04-28 16:48] LABS: Bacteria,Urine 2+ /lpf
== END 2025-04-28 17:30 | disposition home or self-care (01) ==
PROVIDERS: Emergency Medicine; Physician Assistant; Emergency Provider Emergency Medicine; PCP Nurse Practitioner
DX: E87.1 Hypo-osmolality and hyponatremia (principal); R53.83 Other fatigue; F17.210 Nicotine dependence, cigarettes, uncomplicated
CPT/HCPCS: 71045; 80053; 81001; 83735; 85025; 86803; 87086; 87389; 96360; 96361; 99284; J7030

== ENCOUNTER 2025-05-01 12:35 | Outpatient (CLI) | payer BC, SELFPAY ==
--- OUTSIDE RECORDS SUMMARY | 2025-05-01 12:50 | XMS_ITS | Continuity of Care Document ---
Author Organization [place] - [facility] [place], [facility] Address [address] [facility] [facility] [address] [place] [address] Care Team Providers Care Cam Specialist Name Role Phone SHILOH DUNLAP Primary Care Provider Assessment Encounter Date Assessment Date Assessment LastModified by Organization Details LastModified Time 04/25/2025 04/25/2025 69-year-old female with generalized abdominal pain, poor appetite, rectal bleeding, and significant constipation [email or web address] Not available 04/25/2025 10:12:13 Plan of Treatment [...] lubiprost one 24 mcg capsule 2024 025 [facility] [place], [address], 04/25/2025 09:41:00 hydrocort isone 2.5 % topical cream with perineal applicato r 2024 025 [facility], [address] [place], [address], 04/25/2025 09:40:59 Patient TargetsNo targets recorded. Patient InstructionsNo instructions recorded. Reason for Referral None Reported. Problems Name Problem SNOMED Code Status Onset Date Resolution Date Notes Provider Name and Address Organization Details Recorded Time Chronic idiopathic constipati on 69921043 Active [address], [place], [address] , [place] [facility] [place] 5 09:32:05 Blood-ting ed feces 9036592046746 02 Active [address], [place], [address] , [place] [facility] [place] 5 09:32:10 Hemorrhoid s 65203735 Active [address], [place], [address] , [place] [facility] [place] 09:32:18 Decrease in appetite 39960447 Active [address], [place], [address] , [place] [facility] [place] 5 09:34:40 Generalize d abdominal pain 994424180 Active [address], [facility] [address] , [place] [facility] [place] 5 09:35:09 Problem Notes None recorded. Procedures Surgical History Date Name Laterality Status Provider Name and Address Organization Details Recorded Time 05/10/20 25 Venipuncture active [address], [place], [address], [place] [facility] [place] 04/26/2025 13:50:28 03/22/20 25 Venipuncture completed Danna Marks [place] - [facility] [place] 03/22/2025 09:33:48 total hysterectomy completed Karlee RIVERA [facility] [place] 03/22/2025 09:02:54 cholecystectomy completed Char RIVERA [facility] [place] 03/22/2025 09:03:05 colonoscopy completed Char RIVERA [facility] [place] 03/22/2025 09:03:38 Imaging Results None recorded. Procedure Notes None recorded. Medical Equipment None Reported. Allergies Allergen ID Allergen Name Allergen Category Reaction Reaction Severity Criticality Documentation Date Start Date Code Code System Note Provider Name and Address Organization Details Recorded Time 237925 tramadol medicatio n Not available Not available [facility] 03/22/2025 44318 RxNorm NINI Valentino [facility] [place] 5 08:54:39 437582 Bactrim medicatio n Not available Not available [facility] 03/22/2025 16103 9 RxNorm NINI Valentino [facility] [place] 5 08:54:57 594798 levofloxa katy medicatio n Not available Not available [facility] 03/22/2025 90070 RxNorm NINI Valentino [facility] [place] 5 08:57:05 Medications Name Sig Start Date [...] Last Updated DateTime 165.1 cm 28.7 kg/m2 89889.3 2 g 97.2 [degF] 95 % 95 % 72 /min 134 mm[Hg] 72 mm[Hg] [facility] [place] 09:08:45 Social History Question Answer Notes LastModified by [employer] Details LastModified Time Tobacco Smoking Status Current Every Day Smoker [facility], [facility] & [place] 03/22/2025 09:02:39 What Is Your Level Of Caffeine Consumption? Occasional [email or web address] Information not available 03/22/2025 What Was The Date Of Your Most Recent Tobacco Screening? 03/22/2025 [email or web address] Information not available 03/22/2025 At What Age Did You Start Smoking Tobacco? 15 [email or web address] Information not available 03/22/2025 How Much Tobacco Do You Smoke? 0.5 PPD [email or web address] Information not available 03/22/2025 Has Tobacco Cessation Counseling Been Provided? No [email or web address] Information not available 03/22/2025 Sex: Unknown Functional Status Question Answer Note LastModified by [email or web address] Details LastModified Time Do you use any illicit or recreational drugs? No [email or web address] Information not available 03/22/2025 Do you or have you ever used any other forms of tobacco or nicotine? No [email or web address] Information not available 03/22/2025 What is your level of alcohol consumption? None [email or web address] Information not available 03/22/2025 Mental Status None recorded. Family History Relationship Description Onset Age of this Age Resolved Age Notes LastModified by Organization Details LastModified Time Mother Malignant neoplasm of vertebral column [email or web address] Not available 03/22 08:59:33 Mother Cerebrovascu lar accident [email or web address] Not available 09:00:38 Father Malignant neoplasm of prostate [email or web address] Not available 03/22 08:59:55 Brother Malignant neoplasm of prostate mets to Bladde r [email or web address] Not available 03/22/2025 08:59:55 Sister Malignant neoplasm of lung [email or web address] Not available 03/22 09:00:04 Sister Aneurysm Not availab le 03/22/2025 09:01:43 Paternal Uncle Myocardial infarction [email or web address] Not available 03/03 09:01:10 Medical History No medical history recorded. Gynecological HistoryNo gynecological history recorded. Obstetrics History GPAL:G 0 P 0 0 0 0 Immunizations Vaccine Type Date Status Note Provider Nam e and Address Organization Details Recorded Time Influenza, high-dose, quadrivalent, PF 5 completed Char [place]undberg, [place] - [facility] [place] 03/22/2025 08:54:06 Influenza, high-dose, quadrivalent, PF 0 completed Char [place]undberg, [place] - [facility] [place] 03/22/2025 08:54:06 COVID-19, mRNA, LNP-S, PF, 100 mcg/0.5mL dose or 50 mcg/0.25mL dose 2 completed Char lundberg, [place] - [facility] [place] 03/22/2025 08:54:06 COVID-19, mRNA, LNP-S, PF, 100 mcg/0.5mL dose or 50 mcg/0.25mL dose 1 completed Char lundberg, [place] - [facility] [place] 03/22/2025 08:54:06 COVID-19, mRNA, LNP-S, PF, 100 mcg/0.5mL dose or 50 mcg/0.25mL dose 1 completed Char lundberg [place] - [facility] - [place] & [place] 03/22/2025 08:54:06 pneumococcal polysaccharide PPV23 2 completed Char lundberg, NNII - [facility] - [place] & [place] 03/22/2025 08:54:06 Pneumococcal conjugate PCV 13 1 completed Char lundberg, NINI - [facility] - [place] & [place] 03/22/2025 08:54:06 Influenza, high-dose, trivalent, PF 2 completed Char lundberg, NINI - [facility] - [place] & [place] 03/22/2025 08:54:06 Influenza, split virus, quadrivalent, PF 2 completed Char lundberg, NINI - [facility] - [place] & [place] 03/22/2025 08:54:06 Past Encounters Encounter ID Performer Location Encounter Start Date Encounter Closed Date Diagnosis/Indication Diagnosis SNOMED-CT Code Diagnosis ICD10 Code Diagnosis Note [id number] Nikos Higginbotham PA-C [facility] [address] [place] [address] 04/25/2025 08:56:30 04/25/2025 09:59:49 Chronic idiopathic constipation 02606863 K59.04 -Start Lubiprosto ne twice daily. She may use Miralax as needed in addition to this.-Cont inue fiber tablets-We discussed possible benefit of pelvic floor therapy. She states she does not think she can make the appointmen ts due to transporta tion issues. Blood-tinged feces 31752 36438 85628 K92.1 -Colonosco py is scheduled. Treat hemorrhoid s per below. Hemorrhoids 61559661 K64 .9 -Start topical hydrocorti sone. Decrease in appetite 643 45636 R63.0 -Potential ly due to constipati on. EGD has been scheduled. Generalize d abdominal pain 980642595 R10.84 -We will schedule EGD and colonoscop [...] ID Guarantor Name 04/25/2025 1 [employer]) [id number] Efra Beyer [id number] 40 Bhavana Beyer Notes Date Note Type [...] unable to schedule this. Nikos Higginbotham PA-C [address], [place], [address], [place] [facility] [place] 04/25/2025 10:14:57 OBGyn Episode No OBEpisode recorded.
--- OUTSIDE RECORDS SUMMARY | 2025-05-01 12:50 | XMS_ITS | Referral Summary ---
Author Organization [employer] ([place], [place], [place], [place] Address [address] [place] [address] Care Team Providers Care Molding Machine Operator Name Role Phone Analilia Mayer PA-C Primary Care Provider [phone] Allergies Active Allergy Reactions Criticality Noted Date [...] Used Date Smoking Tobacco: Every Day Cigarettes 0.3 40.9 Started: 06/08/1984 Smokeless Tobacco: Never Tobacco Cessation:Ready to Q uit: Not Asked; Counseling Given: Not Answered Alcohol Use Standard Drinks/Week Comments Not Asked 0 (1 standard drink = 0.6 oz pur e alcohol) SOCIALLY Food Insecurity Answer Date Recorded Food run [...] Date Lamine rded Speak language other than Greek at home Not on file 06/03/2024 Want help with school or training Not on file 06/03/2024 Substance Use Answer Date Recorded Used [...] file Insurance BLUE CROSS/BLUE SHIELD Care Teams Molding Machine Operator Relationship Specialty Start Date End Date Analilia Mayer PA-C [address] [place] [address] PCP - General Physician Black Puller 06/10/24
--- OUTSIDE RECORDS SUMMARY | 2025-05-01 12:50 | XMS_ITS | Data Portability ---
Author Organization [facility] Office Address [address] [address] Care Team Providers Care Superintendent Marine Name Role Phone CATHY CONNORS Referring Provider Assessment No assessment recorded. Plan of Treatment Reminders Order Date Submit Date Provider Last Modified By Organization Details Last Modified Time Details Appointments None recorde d. Lab drug screen, urine - Meds: NPE/nws 2023 024 ESTEFANI Ochoa MD [facility] ([facility]), [address] [place], [address], 4 09:49:45 CMP, serum or plasma 2023 024 shania Ochoa MD [facility] [address] [place], [address], 4 12:20:59 gamma-g lutamyl transfe rase (ggt), serum 2023 024 shania Ochoa MD [facility] ([facility]), [address] [place], [address], 4 12:20:59 CBC w/ auto diff 2023 024 shania Ochoa MD [facility] ([facility]), [address] [place], [address], 4 12:20:59 venipun cture 2023 024 [email or web address] Ada Ochoa MD [facility] ([facility]), [address] [facility], [place], [address], 4 12:20:59 [facility] Med eval as part of multi mode pain managem ent 2023 024 [facility] [address], [address] [facility], [facility] [address], [place], [address], 4 08:55:[address] refer l - Diagnos e and treat 2023 024 In [facility] ([facility] [address] [place] [address] , [place], [address], 4 09:09:45 Procedures epidura l steroid injecti on, lumbar interla minar (PROC) - Order # [id number] interla adriana [id number] [address], [place], [address], 4 10:32:49 epidura l steroid injecti on, lumbar transfo raminal (PROC) - Order #[id number] 1 right L34 and L45 with sedatio n [address], [address] [place], [address], 4 16:57:22 Surgeries None recorde d. Imaging None recorde d. Medication Orders None recorde d. Patient TargetsNo targets recorded. Patient Instructions Encounter Date Encounter Id Patient Instructions Last Modified By Organization Details Last Modified Time 04/27/[id number] Take medications EXACTLY as instructed. Call office for any problems DO NOT run out of medications and medications should last till next appointment. Notify office if going to be late or need to reschedule. [email or web address] Not available 04/27/2024 09:12:21 06/28/2024 [id number] back pain: care instructions [email or web address] Not available [...] Eugenie Ochoa MD [facility] ([facility]) [address] [place] [address], [address], 04/27/2024 11:23:17 04/27/20 24 04/27/2024 COMPR EHENS VICK METAB OLIC PANEL (CMP) glucose 91.0 mg/dL 74.0 - 110.0 Not Available Ada Ochoa MD [facility] ([facility]) [address] [place] [address], [address], 04/27/2024 11:23:17 04/27/20 24 04/27/2024 COMPR EHENS VICK METAB OLIC PANEL (CMP) BUN 11.0 mg/dL 4.0 - 25.0 Not Available Ada Ochoa MD [facility] ([facility]) [address] [place] [address], [address], 04/27/2024 11:23:17 04/27/20 24 04/27/2024 COMPR EHENS VICK METAB OLIC PANEL (CMP) creatinine 0.6 mg/dL 0.6 - 1.8 Not Available Ada Ochoa MD [facility] (In House Lab) [address] [place] [address], [address], 04/27/2024 11:23:17 04/27/20 24 04/27/2024 COMPR EHENS VICK METAB OLIC PANEL (CMP) sodium 134 mEq/L 133 - 145 Not Available Ada Ochoa MD [facility] ([facility]) [address] [place] [address], [address], 04/27/2024 11:23:17 04/27/20 24 04/27/2024 COMPR EHENS VICK METAB OLIC PANEL (CMP) potassium 4.4 mEq/L 3.4 - 5.1 Not Available Ada Ochoa MD [facility] ([facility]) [address] [place] [address], [address], 04/27/2024 11:23:17 04/27/20 24 04/27/2024 COMPR EHENS VICK METAB OLIC PANEL (CMP) chloride 99.3 mEq/L 93.0 - 106.0 Not Available Ada Ochoa MD [facility] ([facility]) [address] [place] [address], [address], 04/27/2024 11:23:17 04/27/20 24 04/27/2024 COMPR EHENS VICK METAB OLIC PANEL (CMP) eco2 29.0 mEq/L 24.6 - 35.8 Not Available Ada Ochoa MD [facility] ([facility]) [address] [place] [address], [address], 04/27/2024 11:23:17 04/27/20 24 04/27/2024 COMPR EHENS VICK METAB OLIC PANEL (CMP) calcium 9.3 mg/dL 8.3 - 10.1 Not Available Ada Ochoa MD [facility] ([facility]) [address] [place] [address], [address], 04/27/2024 11:23:17 04/27/20 24 04/27/2024 COMPR EHENS VICK METAB OLIC PANEL (CMP) total protein 6.6 g/dL 6.0 - 8.5 Not Available Ada Ochoa MD [facility] ([facility]) [address] [place] [address], [address], 04/27/2024 11:23:17 04/27/20 24 04/27/2024 COMPR EHENS VICK METAB OLIC PANEL (CMP) albumin 4.4 g/dL 3.3 - 4.9 Not Available Ada Ochoa MD [facility] ([facility]) [address] [place] [address], [address], 04/27/2024 11:23:17 04/27/20 24 04/27/2024 COMPR EHENS VICK METAB OLIC PANEL (CMP) ALP 72.0 U/L 46.0 - 116.0 Not Available Ada Ochoa MD [facility] ([facility]) [address] [place] [address], [address], 04/27/2024 11:23:17 04/27/20 24 04/27/2024 COMPR EHENS VICK METAB OLIC PANEL (CMP) AST 20 U/L 6 - 40 Not Available Ada Ochoa MD [facility] ([facility]) [address] [place] [address], [address], 04/27/2024 11:23:17 04/27/20 24 04/27/2024 COMPR EHENS VICK METAB OLIC PANEL (CMP) ALT 19 U/L 5 - 30 Not Available Ada Ochoa MD [facility] ([facility]) [address] [place] [address], [address], 04/27/2024 11:23:17 04/27/20 24 04/27/2024 COMPR EHENS VICK METAB OLIC PANEL (CMP) total bilirubin 0.74 mg/dL 0.00 - 1.00 Not Available Ada Ochoa MD [facility] ([facility]) [address] [place] [address], [address], 04/27/2024 11:23:17 04/27/20 24 04/27/2024 CBC WITH DIFFE RENTI AL/PL ATELE T WBC 12.3 10 4.0 - 11.0 high Not Available Ada Ochoa MD [facility] ([facility]) [address] [place] [address], [address], 04/27/2024 11:23:16 04/27/20 24 04/27/2024 CBC WITH DIFFE RENTI AL/PL ATELE T RBC 3.89 10 3.72 - 5.52 Not Available Ada Ochoa MD [facility] ([facility]) [address] [place] [address], [address], 04/27/2024 11:23:16 04/27/20 24 04/27/2024 CBC WITH DIFFE RENTI AL/PL ATELE T HGB 13.0 g/dL 11.0 - 16.6 Not Available Ada Ochoa MD [facility] ([facility]) [address] [place] [address], [address], 04/27/2024 11:23:16 04/27/20 24 04/27/2024 CBC WITH DIFFE RENTI AL/PL ATELE T HCT 38.1 % 34.0 - 49.0 Not Available Ada Ochoa MD [facility] ([facility]) [address] [place] [address], [address], 04/27/2024 11:23:16 04/27/20 24 04/27/2024 CBC WITH DIFFE RENTI AL/PL ATELE T MCV 97.9 fL 79.5 - 101.0 Not Available Ada Ochoa MD [facility] ([facility]) [address] [place] [address], [address], 04/27/2024 11:23:16 04/27/20 24 04/27/2024 CBC WITH DIFFE RENTI AL/PL ATELE T MCH 33.4 pg 26.2 - 34.0 Not Available Ada Ochoa MD [facility] ([facility]) [address] [place] [address], [address], 04/27/2024 11:23:16 04/27/20 24 04/27/2024 CBC WITH DIFFE RENTI AL/PL ATELE T MCHC 34.1 g/dL 31.3 - 36.0 Not Available Ada Ochoa MD [facility] ([facility]) [address] [place] [address], [address], 04/27/2024 11:23:16 04/27/20 24 04/27/2024 CBC WITH DIFFE RENTI AL/PL ATELE T plt 377 10 115 - 421 Not Available Ada Ochoa MD [facility] ([facility]) [address] [place] [address], [address], 04/27/2024 11:23:16 04/27/20 24 04/27/2024 CBC WITH DIFFE RENTI AL/PL ATELE T RDW-CV 12.9 % 11.3 - 16.1 Not Available Ada Ochoa MD [facility] ([facility]) [address] [place] [address], [address], 04/27/2024 11:23:16 04/27/20 24 04/27/2024 CBC WITH DIFFE RENTI AL/PL ATELE T neut# 8.34 10 0.81 - 9.65 Not Available Ada Ochoa MD [facility] ([facility]) [address] [place] [address], [address], 04/27/2024 11:23:16 04/27/20 24 04/27/2024 CBC WITH DIFFE RENTI AL/PL ATELE T lymph# 2.41 10 0.65 - 4.81 Not Available Ada Ochoa MD [facility] ([facility]) [address] [place] [address], [address], 04/27/2024 11:23:16 04/27/20 24 04/27/2024 CBC WITH DIFFE RENTI AL/PL ATELE T mono# 0.92 10 0.10 - 1.13 Not Available Ada Ochoa MD [facility] ([facility]) [address] [place] [address], [address], 04/27/2024 11:23:16 04/27/20 24 04/27/2024 CBC WITH DIFFE RENTI AL/PL ATELE T eo# 0.58 10 0.00 - 0.50 high Not Available Ada Ochoa MD [facility] ([facility]) [address] [place] [address], [address], 04/27/2024 11:23:16 04/27/20 24 04/27/2024 CBC WITH DIFFE RENTI AL/PL ATELE T baso# 0.09 10 0.00 - 0.09 Not Available Ada Ochoa MD [facility] ([facility]) [address] [place] [address], [address], 04/27/2024 11:23:16 04/27/20 24 04/27/2024 CBC WITH DIFFE RENTI AL/PL ATELE T neut% 67.6 % 37.2 - 78.0 Not Available Ada Ochoa MD [facility] ([facility]) [address] [place] [address], [address], 04/27/2024 11:23:16 04/27/20 24 04/27/2024 CBC WITH DIFFE RENTI AL/PL ATELE T lymph% 19.5 % 13.4 - 50.2 Not Available Ada Ochoa MD [facility] ([facility]) [address] [place] [address], [address], 04/27/2024 11:23:16 04/27/20 24 04/27/2024 CBC WITH DIFFE RENTI AL/PL ATELE T mono% 7.5 % 3.4 - 12.0 Not Available Ada Ochoa MD [facility]) [address] [place] [address], [address], 04/27/2024 11:23:16 04/27/20 24 04/27/2024 CBC WITH DIFFE RENTI AL/PL ATELE T eo% 4.7 % 0.0 - 7.0 Not Available Ada Ochoa MD [facility] ([facility]) [address] [place] [address], [address], 04/27/2024 11:23:16 04/27/20 24 04/27/2024 CBC WITH DIFFE RENTI AL/PL ATELE T baso% 0.7 % 0.0 - 3.0 Not Available Ada Ochoa MD [facility] ([facility]) [address] [facility], [place], [address], 04/27/2024 11:23:16 Result Notes None recorded. Problems Name Problem SNOMED Code Status Onset Date Resolution Date Notes Provider Name and Address Organization Details Recorded Time Lumbosacral radiculopathy 9519474 Active 2023 ARAVIND DURBIN MD [address] [place], [address] - [facility] [...] Address Organization Details Last Updated DateTime 4 27170.7 4 g 97.9 [degF] 16 /min 61 /min 127 mm[Hg] 71 mm[Hg] [facility] 4 10:05:23 Date Recorded Respiratory rate Body temperature Heart rate Body weight Systolic blood pressure Diastolic blood pressure Provider Name and Address Organization Details Last Updated DateTime 4 16 /min 97.3 [degF] 60 /min 97530.9 3 g 125 mm[Hg] 68 mm[Hg] Lula [...] SARS-COV-2 (COVID-19) vaccine, UNSPECIFIED 04/06/2024 [place] [facility] 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 [id number] ARAVIND DURBIN MD [address] [place] [address] 4 06/28/2024 09:11:44 06/28/2024 15:52:17 Lumbosacral radiculopathy 3281069 M54.16 Health Concerns Section Related Observation LastModified by Organization Detai ls LastModified Time None Recorded Concern Status LastModified by Organization Details LastModified Time None Recorded Advance Directives Directive None Recorded Payers Insurance Date Sequence Insurance Name Policy Number Policy Roberts Covered Member ID Roberts Member ID Guarantor Name 07/18/2024 1 [employer] [id number] Efra Beyer [id number] Bhavana [place] Notes Date Note Type Note Provider Name and Address Organization Details Recorded Time 04/27/2024 text/html [facility] report reviewed and compliant. Sent here for [...] L45 tranforminal epidura;l ARAVIND DURBIN MD [address] [address], [place], [address], [facility] 04/27/2024 10:40:31 06/28/2024 text/html [facility] report reviewed and compliant. Pain is in [...] L45 transforminal nerve block ARAVIND DURBIN MD [address] [facility], [place], [address], [facility] 06/28/2024 09:34:26 OBGyn Episode No OBEpisode recorded.
--- OUTSIDE RECORDS SUMMARY | 2025-05-01 12:50 | XMS_ITS | Data Portability ---
Author Organization [facility] Address [address] [place] [address] Care Team Providers Care Distiller Name Role Phone SHILOH DUNLAP Referring Provider [phone] Assessment Encounter Date Assessment Date Assessment LastModified [...] Much of this encounter is an electronic application support intern/tra nslation of spoken language to printed text. [...] and foraminal stenosis Lumbar flex ex 11/2024 [facility] Multiple levels of movement in the [...] legs, I will refer her back to [facility] for fusion evaluation. Lumbar flexion-extension x-ray was obtained at [facility] and reviewed today. External records were reviewed and discussed as above, including imaging, clinical notes, and relevant labs. Much of this encounter is an electronic application support intern/tra nslation of spoken language to printed text. [...] nasal - additional dx: Z22.322 2023 024 Formerly [facility], [facility], [facility], [address] [place] [address], [address], 01/07/202 5 15:32:37 HbA1c (hemoglobi n A1c), blood - additional dx: 250.00 2023 024 [email or web address] Formerly [facility], [facility], [facility], [address] [place] [address], [address], 5 15:32:32 Referral orthopedic spine surgeon referral - has been evaluated in past, new unstable spondy found on flex/ex, worsening leg pain, minimal benefit from TFESI. Eval for fusion. 2024 025 [email or web address] Nuvia lynn MD, [address] [place], [address], 5 15:13:52 Procedures remote therapeuti c monitoring [...] TFESI John L5-S1 with no sed in sublimity with Dr. Garcia LUKE 2023 024 [email or web address] Not available 4 13:43:03 Surgeries destructio n of intraosseo us basiverteb ral nerve, including imaging guidance, lumbar/sac rum (SURG) 2023 025 [email or web address] [facility], [address], [address], [place], [address], 5 16:19:45 Imaging XR, lumbosacra l spine, 4 or more view - AP/LAT/EXT /FLEX 2023 024 [email or web address], [address], [address], [place], [address], 15:29:29 Medication Orders Hibiclens 4 % topical liquid [address] [facility], [address] [place] [address] [place], [id number], 17:32:40 Patient TargetsNo targets recorded. Patient Instructions Encounter Date Encounter Id Patient Instructions Last Modified By Organization Details Last Modified Time 08/26/2024 [id number] behavioral healt h screen* [email or web address] Not available 08/29/2024 10:41:36 back stretches: exercises [...] view No observ ation record ed. [email or web address] [facility] ([facility]) [address], [place], [address], 08/26/2024 17:10:54 08/29/2010/28/2023 MRI, lumba r spine , w/o contr ast No observ ation record ed. [email or web address] Not Available 2023 15:41:20 Result Notes None recorded. Problems Name Problem SNOMED Code Status Onset Date Resolution Date Notes Provider Name and Address Organization Details Recorded Time Lumbar radiculopathy 691008836 Active 2023 NINI Delgado - [facility], [facility] 4 09:02:58 Lumbar spondylosis 681945077 Active 2023 [facility]I Delgado [facility] 4 09:02:58 Chronic pain 39473647 Active 2023 NINI Delgado - [facility] 4 09:02:58 Overweight 017888501 Active 2023 NINI Delgado - [facility] 4 09:03:01 Chronic low back pain 783934815 Active 2023 NINI Delgado - [facility] 4 10:09:18 Problem Notes None recorded. Procedures Surgical History Date Name Laterality Status Provider Name and Address Organization Details Recorded Time 09/20/20 24 Lumbar Transforaminal Epidural Steroid Injection (1 Level Bilateral): completed Farhana Darryl NINI - [facility] 09/20/2024 09:51:58 procedure on gallbladder completed Farhana [place] NINI - [facility] 08/26/2024 10:19:17 Imaging Results None recorded. Procedure Notes None recorded. Medical Equipment None Reported. Allergies Allergen ID Allergen Name Allergen Category Reaction Reaction Severity Criticality Documentation Date Start Date Code Code System Note Provider Name and Address Organization Details Recorded Time 648395 tramadol medicatio n Not available Not available Not available 08/26/2024 07681 RxNorm NINI Delgado - [facility] 4 09:08:40 750868 Levaquin medicatio n Not available Not available Not available 08/26/2024 76008 2 RxNorm NINI Delgado - [facility] 4 09:08:52 348629 Biaxin medicatio n Not available Not available Not available 08/26/202454066 9 RxNorm NINI Delgado - [facility] 4 09:09:04 Medications Name Sig Start Date [...] Updated DateTime 5 165.1 cm 28.5 kg/m2 68727.3 g 97 % 97 % 75 /min 131 mm[Hg] 80 mm[Hg] Yara Richards Former[facility], [facility] 5 11:13:54 Date Recorded Body height Body mass index (BMI) Body weight Oxygen saturation Oxygen saturation in Arterial blood by Pulse oximetry Heart rate Systolic blood pressure Diastolic blood pressure Provider Name and Address Organization Details Last Updated DateTime 4 165.1 cm 28.3 kg/m2 59585.7 g 95 % 95 % 62 /min 120 mm[Hg] 71 mm[Hg] Luisa Vivas Formerly [facility], [facility] 4 09:08:33 Social History Question Answer Notes LastModified by [employer] Details LastModified Time Tobacco Smoking Status Current Every Day Smoker Farhana lundberg [facility], [facility] 08/26/2024 10:18:30 Do You Have An Advance [...] Do You Have A Medical Power Of 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 No Information not available 08/26/2024 What Was [...] Bipolar Disease N Coronary Artery Disease N Gout N Seizure Disorder N Thyroid Disease N Atrial Fibrillation N Hernia N Head Trauma/Injury N COPD N Depression Y Anxiety Disorder N Acid Reflux (GERD) N Cancer N Skin Disorder N Stroke N High Cholesterol Y Liver Disease N Rheumatoid Arthritis N Fibromyalgia N Headaches N Autoimmune Disease N Kidney Disease N Osteoarthritis N Neurosurgery N DVT N Peptic Ulcer Disease N Anemia N Heart Attack (LA) N Diabetes N Cardiomyopathy N Bleeding Disorder [...] SNOMED-CT Code Diagnosis ICD10 Code Diagnosis Note [id number] MD Mansoor BURGOSington [address] [place] [address] 08/26/2024 08:31:18 08/29/2024 09:09:04 Lumbar radiculopathy 082971289 M54.16 Chronic pain 51126247 G8 9.29 Chronic low back pain 27 6026831 M54.51 [id number] MD Mansoor BURGOSington [address] [place] [address] 09/20/2024 08:08:04 09/20/2024 09:49:16 Lumbar radiculopathy 711814000 M54.16 [id number] BAYRON GARCIA MD [facility] [address] [place] [address] 12/16/2024 10:38:46 12/16/2024 14:42:47 Chronic pain 98218328 G89.29 Lumbar radiculopathy 128 600007 M54.16 Health Concerns Section Related Observation LastModified by Organization Detai ls LastModified Time None Recorded Concern Status LastModified by Organization Details LastModified Time None Recorded Advance Directives Directive N: Payers Insurance Date Sequence Insurance Name Policy Number Policy Roberts Covered Member ID Roberts Member ID Guarantor Name 12/16/2024 1 [place] [id number] Efra Beyer [id number] Bhavana [place] Notes Date Note Type [...] independently.; Able to bathe/groom without assistance.;Cannot complete fleecer secondary to pain.; Walking without assistance or significant difficulty;Difficulty exercising on a regular basis secondary to pain.;Difficulty participating in recreation on a regular basis secondary to pain. Prior Imaging:MRI ([facility] - 10/28/23); 10/28/2023 MRI of Lumbar spine [facility] Lumbar Surgery:none Interventional Treatment History:lumbar ESIs: no relief Physical Therapy:Facility: ([place] [facility] [address]); PT discontinued by therapist/physician; complete 6weeks; dates: (05/11/2024 to 07/22/2024); response to therapy: no improvement in pain/symptoms Medications History:NSAIDs: (Ibuprofen 800 mg - not effective); Muscle relaxants: (Flexeril) Adverse Reactions:No nausea; No vomiting; No constipation; No itching Other Conservative Treatments:heat: effective Prior Pain Management:yes: ([facility]) Oswestry Disability Index (JIMENA)Score/Date Completed: (52 08/26/24) For Female Patients:Are you ? No New patient referred by for Low back pain. BAYRON GARCIA MD [address] [place] [address], [address], [facility] 08/26/2024 17:14:50 12/16/2024 text/html Low back painRep [...] independently.; Able to bathe/groom without assistance.;Cannot complete fleecer secondary to pain.; Walking without assistance or significant difficulty;Difficulty exercising on a regular basis secondary to pain.;Difficulty participating in recreation on a regular basis secondary to pain. Prior Imaging:MRI ([facility] - 10/28/23); 10/28/2023 MRI of Lumbar spine [facility] Lumbar Surgery:none Interventional Treatment History:lumbar ESIs: no relief Physical Therapy:Facility: ([place] [address]); PT discontinued by therapist/physician; complete 6weeks; dates: (05/11/2024 to 07/22/2024); response to therapy: no improvement in pain/symptoms Medications History:NSAIDs: (Ibuprofen 800 mg - not effective); Muscle relaxants: (Flexeril) Adverse Reactions:No nausea; No vomiting; No constipation; No itching Other Conservative Treatments:heat: effective Prior Pain Management:yes: ([facility]) Oswestry Disability Index (JIMENA)Score/Date Completed: (52 08/26/24) For Female Patients:Are you ? No BAYRON GARCIA MD [address] [place] [address], [phone], [facility] 12/16/2024 13:43:16 OBGyn Episode No OBEpisode recorded.
--- OUTSIDE RECORDS SUMMARY | 2025-05-01 12:50 | XMS_ITS | Continuity of Care Document ---
Author Organization [facility] Address [address] [place] [address] Care Team Providers Care Customer Field Representative Name Role Phone SHLIOH DUNLAP Primary Care Provider [phone] Assessment No assessment recorded. Plan of Treatment [...] quantitat mat, serum or plasma 2024 025 [email or web address] Not available 03/29/2025 12:56:46 bcr/alb1, quantitat mat PCR, blood or tissue 2024 025 [email or web address] Not available 03/29/2025 12:56:46 chronic leukemia panel, flow cytometry , unspecifi ed specimen 2024 025 [email or web address] Not available 03/30/2025 08:40:44 jak2 (V617F) mutation, blood/tis tony 2024 025 [email or web address] Not available 03/30/2025 08:40:44 carbon monoxide, QN, blood 2024 025 [email or web address] Not available 03/29/2025 12:56:47 iron + TIBC + ferritin, serum 2024 025 [email or web address] Not available 03/29/2025 12:56:47 iron saturatio n, serum 2024 025 [email or web address] Not available 03/29/2025 12:56:47 vitamin B12 + folate, serum or blood 2024 025 [email or web address] Not available 03/29/2025 12:56:47 mma (methylma lonic acid), serum 2024 025 [email or web address] Not available 03/29/2025 12:56:47 Referral None recorded. Procedures None recorded. Surgeries None recorded. Imaging None recorded. Medication Orders None recorded. Patient TargetsNo targets recorded. Patient InstructionsNo instructions recorded. Reason for Referral None Reported. Problems Name Problem SNOMED Code Status Onset Date Resolution Date Notes Provider Name and Address Organization Details Recorded Time Chronic idiopathic constipati on 97112988 Active 2024 Nikos Higginbotham PA-C [address], [place], [address] , [place] [facility] [place] 5 09:32:05 Blood-ting ed feces 4074246236200 02 Active 2024 Nikos Higginbotham PA-C [address], [place], [address] , [place] [facility] & [place] 5 09:32:10 Hemorrhoid s 97842955 Active 2024 Nikos Higginbotham PA-C [address], [place], [address] , [place] [facility] & [place] 5 09:32:18 Decrease in appetite 38454658 Active 2024 Nikos Higginbotham PA-C [address], [place], [address] , [place] [facility] [place] & [place] 09:34:40 Generalize d abdominal pain 902334233 Active [address], [place], [address] , [place] [facility] [place] [facility] [place] 09:35:09 Problem Notes None recorded. Procedures Surgical History Date Name Laterality Status Provider Name and Address Organization Details Recorded Time 05/10/20 25 Venipuncture active [address], [place], [address], [place] [facility] [place] [facility] [place] 04/26/2025 13:50:28 03/22/20 Venipuncture completed Danna Marks NINI - [facility] [place] 03/22/2025 09:33:48 total hysterectomy completed Karlee Cross NINI - [facility] [place] 03/22/2025 09:02:54 cholecystectomy completed Char TERRAZAS - [facility] [place] 03/22/2025 09:03:05 colonoscopy completed Char Cross [place] - [facility] & [place] 03/22/2025 09:03:38 Imaging Results None recorded. Procedure Notes None recorded. Medical Equipment None Reported. Allergies Allergen ID Allergen Name Allergen Category Reaction Reaction Severity Criticality Documentation Date Start Date Code Code System Note Provider Name and Address Organization Details Recorded Time 438404 tramadol medicatio n Not available Not available [facility] 03/22/2025 94755 RxNorm NINI Valentino - [facility] [place] 08:54:39 488205 Bactrim medicatio n Not available Not available [facility] 03/22/2025 91817 9 RxNorm Char lundberg [place] - [facility] & [place] 08:54:57 362110 levofloxa katy medicatio n Not available Not available high 03/22/2025 53396 RxNorm Char Cross [facility], [place] - [place] & [place] 5 08:57:05 Medications Name Sig Start Date [...] Updated DateTime 5 165.1 cm 28.8 kg/m2 55605.8 4 g 98.6 [degF] 94 % 94 % 68 /min 116 mm[Hg] 61 mm[Hg] Char Cross [place] - [facility] - [place] & [place] 5 08:53:50 Social History Question Answer Notes LastModified by Organizat ion Details LastModified Time Tobacco Smoking Status Current Every Day Smoker Char Tay null, [place] [facility] [place] [facility] [place] 03/22/2025 09:02:39 What Is Your Level Of Caffeine Consumption? Occasional [email or web address] Information not available 03/22/2025 What Was The Date Of Your Most Recent Tobacco Screening? 03/22/2025 [email or web address] Information not available 03/22/2025 At What Age Did You Start Smoking Tobacco? 15 Information not available 03/22/2025 How Much Tobacco Do You Smoke? 0.5 PPD [email or web address] Information not available 03/22/2025 Has Tobacco Cessation Counseling Been Provided? No [email or web address] Information not available 03/22/2025 Sex: Unknown Functional Status Question Answer Note LastModified by Organizat ion Details LastModified Time Do you use any illicit or recreational drugs? No [email or web address] Information not available 03/22/2025 Do you or have you ever used any other forms of tobacco or nicotine? No [email or web address] Information not available 03/22/2025 What is your level of alcohol consumption? None [email or web address] Information not available 03/22/2025 Mental Status None recorded. Family History Relationship Description Onset Age of this Age Resolved Age Notes LastModified by Organization Details LastModified Time Mother Malignant neoplasm of vertebral column [email or web address] Not available 03/22 08:59:33 Mother Cerebrovascu lar accident [email or web address] Not available 09:00:38 Father Malignant neoplasm of prostate [email or web address] Not available 03/22 08:59:55 Brother Malignant neoplasm of prostate mets to Bladde r [email or web address] Not available 03/22/2025 08:59:55 Sister Malignant neoplasm of lung [email or web address] Not available 03/22 09:00:04 Sister Aneurysm [email or web address] Not availab le 03/22/2025 09:01:43 Paternal Uncle Myocardial infarction [email or web address] Not available 03/03 09:01:10 Medical History No medical history recorded. Gynecological HistoryNo gynecological history recorded. Obstetrics History GPAL:G 0 P 0 0 0 0 Immunizations Vaccine Type Date Status Note Provider Nam e and Address Organization Details Recorded Time Influenza, high-dose, quadrivalent, PF 01/17/202 5 completed Char Tay [place], [place] [facility] [place] [facility] [place] 03/22/2025 08:54:06 Influenza, high-dose, quadrivalent, PF 0 completed Char Tay [place], [place] [facility] [place] 03/22/2025 08:54:06 COVID-19, mRNA, LNP-S, PF, 100 mcg/0.5mL dose or 50 mcg/0.25mL dose 2 completed Char Tay [place], [place] [facility] [place] 03/22/2025 08:54:06 COVID-19, mRNA, LNP-S, PF, 100 mcg/0.5mL dose or 50 mcg/0.25mL dose 1 completed Char Tay [place], [place] [facility] [place] 03/22/2025 08:54:06 COVID-19, mRNA, LNP-S, PF, 100 mcg/0.5mL dose or 50 mcg/0.25mL dose 1 completed Char Tay [place] [facility] [place] 03/22/2025 08:54:06 pneumococcal polysaccharide PPV23 2 completed Char Tay [place] [facility] [place] 03/22/2025 08:54:06 Pneumococcal conjugate PCV 13 1 completed Char Tay [place] [facility] [place] 03/22/2025 08:54:06 Influenza, high-dose, trivalent, PF 2 completed Char Tay [place], [place] [facility] [place] 03/22/2025 08:54:06 Influenza, split virus, quadrivalent, PF 2 completed Char Tay [place] [facility] [place] 03/22/2025 08:54:06 Past Encounters Encounter ID Performer Location Encounter Start Date Encounter Closed Date Diagnosis/Indication Diagnosis SNOMED-CT Code Diagnosis ICD10 Code Diagnosis Note [id number] Pravin Sanchez MD [facility] [address] [facility] [address] [place] [address] 03/22/2025 08:30:33 03/22/2025 09:18:49 Leukocytosis 645984439 D72.829 Patient with current smoking history. Patient [...] out other pathology. Encouraged smoking cessation. Anemia 030876504 D64.9 Labs performed February 27, 2025 with white blood cell count 12.5. Red blood cell count 3.72. Hemoglobin 12.6 and hematocrit 35.8. MCV 96.2.Mild normocytic anemia. Will follow up iron studies. Will follow up B12 and folate. Cobalamin deficiency 190 789941 E53.8 Prior history of B12 deficiency . Will follow up repeat labs. Vitamin D deficiency 347 44096 E55.9 Prior history of vitamin-D deficiency . Vitamin-D level normal on February 27, 2025. Would recommend bone density testing if patient has not already had. Cigarette smoker 0784776 7 F17.210 Patient with current smoking history. Patient smokes about 1/2 pack per day. Patient started smoking at age 14. Patient with 30 pack-year history of smoking. Due to smoking history discussed with patient low-dose lung cancer screening CT scan.Queenie nt recently had low-dose lung cancer screening CT scan in early 2024. Centriacin ar emphysema 26884573 J43.2 Patient with history of COPD. Currently on Trelegy. Follows with pulmonolog y. Health Concerns Section Related Observation LastModified by Organization Detai ls LastModified Time None Recorded Concern Status LastModified by Organization Details LastModified Time None Recorded Payers Encounter Date Sequence Insurance Name Policy Number Policy Roberts Covered Member ID Roberts Member ID Guarantor Name 03/22/2025 1 [place] [id number] Efra Beyer [id number] Bhavana Beyer Notes Date Note Type [...] pathology. Encouraged smoking cessation. Pravin Sanchez MD [address], [place], [address], [place] [facility] [place] [facility] [place] 03/22/2025 10:13:29 OBGyn Episode No OBEpisode recorded.
--- OUTSIDE RECORDS SUMMARY | 2025-05-01 12:50 | XMS_ITS | Clinical Summary ---
Author Organization Healthcare Address [address] [place] [address] Care Team Providers Care Cooker Soda Name Role Phone Sepideh Talbot AAYUSH Primary Care Provider [phone] Medications Fluticasone-Umec lidin-Vilant (Trelegy Ellipta) 100-62.5-25 MCG/ACT [...] 2005 UKY-Zoster Vaccines (1 of 2) 2005 [id number] Vaccine ( season) 2024 11/15/2021, 02/06/2021, 01/02/2021 [...] patient's age to complete this topic Insurance [place] [address] Care Teams Cooker Soda Relationship Specialty Start Date End Date TalbotSepideh, LITHOGRAPHIC PLATE MAKER [address] [facility] [address] [place] [address] PCP - General 06/01/23
--- OUTSIDE RECORDS SUMMARY | 2025-05-01 12:50 | XMS_ITS | Clinical Summary ---
Author Organization [employer] ([place], [place], [place], [place]) Address [address] [place] [address] Care Team Providers Care Corporate Concierge Name Role Phone Analilia Mayer PA-C Primary Care Provider [phone] Allergies Active Allergy Reactions Criticality Noted Date [...] Date Lamine rded Speak language other than Korean at home Not on file 06/03/2024 Want [...] 09/16/2018, 08/14/2017, Additional history exists COVID-19 VACCINE (2023-2 5 season) 2024 04/06/2024, 11/15/2021, 02/06/2021, Additional history exists Falls Risk Screening 11/02/2024 Influenza Vaccine (Season Ended) 2025 09/23/2022, 09/23/2022, 08/07/2020 Respiratory Syncytial Virus (RSV) Adult or (1 - 1-dose 75+ series) 2030 Pneumococcal 50+ years Completed 09/23/2022, 2020 Insurance BLUE CROSS/BLUE SHIELD Care Teams Corporate Concierge Relationship Specialty Start Date End Date Analilia Mayer PA-C [address] [place] [address] PCP - General Physician Technical Coordinator 06/10/24
--- NOTE | 2025-05-01 13:00 | CA_ITS ---
FINAL REPORT TECHNIQUE: Ultrasound images of the deep venous system were obtained from the left groin to the calf veins. CLINICAL HISTORY: PAIN EDEMA FINDINGS: The deep venous system is normally compressible. Normal flow is identified. IMPRESSION: No evidence of left lower extremity DVT. Reviewed, Interpreted and Dictated by Irving Hopson MD Transcribed by Emily Chaudhry Authenticated and [facility]
--- NOTE | 2025-05-01 13:45 | CA_ITS ---
FINAL REPORT TECHNIQUE: Arterial duplex Doppler evaluation of the left lower extremity with spectral analysis. CLINICAL HISTORY: left leg pain/edema FINDINGS: Left lower extremity, flow velocities (cm per second): Common femoral artery: 106 Profunda: 55 Proximal SFA: 106 Mid SFA: 108 Distal SFA: 98 Popliteal: 70 Prox MIRROR FINISHING MACHINE OPERATOR: 119 Mid MIRROR FINISHING MACHINE OPERATOR: 118 Distal MIRROR FINISHING MACHINE OPERATOR: 115 Distal VIKAS: 79 IMPRESSION: Waveforms are noted to be biphasic and triphasic. No significant arterial occlusive disease. Reviewed, Interpreted and Dictated by Irving Hopson MD Transcribed by Liat Kaye Authenticated and [facility]
== END 2025-05-01 23:59 | disposition home or self-care (01) ==
LOC: RT 12:35
PROVIDERS: PCP Nurse Practitioner; Visit Provider Internal Medicine
DX: M79.605 Pain in left leg (principal); M79.89 Other specified soft tissue disorders
CPT/HCPCS: 93926; 93971

== ENCOUNTER 2025-05-03 13:51 | Outpatient (CLI) | payer BC, SELFPAY ==
--- OUTSIDE RECORDS SUMMARY | 2025-05-03 13:54 | XMS_ITS | Clinical Summary ---
Author Organization [employer] ([place], [place], [place], [place]) Address [address] [place] [address] Care Team Providers Care Hairspring Setter Name Role Phone Analilia Mayer PA-C Primary Care Provider [phone] Allergies Active Allergy Reactions Criticality Noted Date [...] Date Lamine rded Speak language other than Lebanese at home Not on file 06/03/2024 Want [...] 2020 Insurance BLUE CROSS/BLUE SHIELD Care Teams Hairspring Setter Relationship Specialty Start Date End Date Analilia Mayer PA-C [address] [place] [address] PCP - General Physician Dust Control Engineer 06/10/24
--- OUTSIDE RECORDS SUMMARY | 2025-05-03 13:54 | XMS_ITS | Referral Summary ---
Author Organization [employer] ([place], [place], [place], [place]) Address [address] [place] [address] Care Team Providers Care Cognos Architect Name Role Phone Analilia Mayer PA-C Primary Care Provider [phone] Allergies Active Allergy Reactions Criticality Noted Date [...] Date Lamine rded Speak language other than Estonian at home Not on file 06/03/2024 Want [...] file Insurance BLUE CROSS/BLUE SHIELD Care Teams Cognos Architect Relationship Specialty Start Date End Date Analilia Mayer PA-C [address] [place] [address] PCP - General Physician [employer] 06/10/24
--- OUTSIDE RECORDS SUMMARY | 2025-05-03 13:54 | XMS_ITS | Continuity of Care Document ---
Author Organization [place] - [facility] - [place] & [place], [facility] Address [address] [place] [address] Care Team Providers Care Senior Test Engineer Name Role Phone SHILOH DUNLAP Primary Care Provider Assessment Encounter Date Assessment Date Assessment LastModified by Organization Details LastModified Time 04/25/2025 04/25/2025 69-year-old female with generalized abdominal pain, poor appetite, rectal bleeding, and significant constipation [email or web address] Not available 04/25/2025 10:12:13 Plan of Treatment [...] lubiprost one 24 mcg capsule 2024 025 [facility] [place], [address], 04/25/2025 09:41:00 hydrocort isone 2.5 % topical cream with perineal applicato r 2024 025 [facility] [address] [place], [address], 04/25/2025 09:40:59 Patient TargetsNo targets recorded. Patient InstructionsNo instructions recorded. Reason for Referral None Reported. Problems Name Problem SNOMED Code Status Onset Date Resolution Date Notes Provider Name and Address Organization Details Recorded Time Chronic idiopathic constipati on 34757123 Active [address], [place], [address] , [place] - [facility] & [place] 5 09:32:05 Blood-ting ed feces 4247960450826 02 Active [address], [place], [address] , [place] [facility] [facility] & [place] 5 09:32:10 Hemorrhoid s 40452501 Active [address], [place], [address] , [place] [facility] [facility] & [place] 09:32:18 Decrease in appetite 80408749 Active [address], [place], [address] , [place] [facility] [facility] & [place] 5 09:34:40 Generalize d abdominal pain 746249073 Active [address], [facility] [address] , [place] [facility] [facility] & [place] 5 09:35:09 Problem Notes None recorded. Procedures Surgical History Date Name Laterality Status Provider Name and Address Organization Details Recorded Time 05/10/20 25 Venipuncture active [address], [place], [address], [place] [facility] & [place] 04/26/2025 13:50:28 03/22/20 25 Venipuncture completed Danna Marks [place] - [facility] & [place] 03/22/2025 09:33:48 total hysterectomy completed Karlee RIVERA [facility] & [place] 03/22/2025 09:02:54 cholecystectomy completed Char RIVERA [facility] & [place] 03/22/2025 09:03:05 colonoscopy completed Char RIVERA [facility] & [place] 03/22/2025 09:03:38 Imaging Results None recorded. Procedure Notes None recorded. Medical Equipment None Reported. Allergies Allergen ID Allergen Name Allergen Category Reaction Reaction Severity Criticality Documentation Date Start Date Code Code System Note Provider Name and Address Organization Details Recorded Time 552462 tramadol medicatio n Not available Not available [facility] 03/22/2025 51326 RxNorm NINI Valentino [facility] & [place] 5 08:54:39 598950 Bactrim medicatio n Not available Not available [facility] 03/22/2025 83110 9 RxNorm NINI Valentino [facility] & [place] 5 08:54:57 052011 levofloxa katy medicatio n Not available Not available [facility] 03/22/2025 03860 RxNorm NINI Valentino [facility] & [place] 5 08:57:05 Medications Name Sig Start Date [...] Last Updated DateTime 165.1 cm 28.7 kg/m2 24860.3 2 g 97.2 [degF] 95 % 95 % 72 /min 134 mm[Hg] 72 mm[Hg] [facility] & [place] 09:08:45 Social History Question Answer Notes LastModified by [email or web address] Details LastModified Time Tobacco Smoking Status Current Every Day Smoker [facility], [facility] & [place] 03/22/2025 09:02:39 What Is Your Level Of Caffeine Consumption? Occasional [email or web address] Information not available 03/22/2025 What Was The Date Of Your Most Recent Tobacco Screening? 03/22/2025 [email or web address] Information not available 03/22/2025 At What Age Did You Start Smoking Tobacco? 15 [email or web address] Information not available 03/22/2025 How Much Tobacco Do You Smoke? 0.5 PPD Information not available 03/22/2025 Has Tobacco Cessation Counseling Been Provided? No [email or web address] Information not available 03/22/2025 Sex: Unknown Functional Status Question Answer Note LastModified by Neth[employer]aco[employer] ion Details LastModified Time Do you use any illicit or recreational drugs? No [email or web address] Information not available 03/22/2025 Do you or have you ever used any other forms of tobacco or nicotine? No [email or web address] Information not available 03/22/2025 What is your level of alcohol consumption? None [email or web address] Information not available 03/22/2025 Mental Status None recorded. Family History Relationship Description Onset Age of this Age Resolved Age Notes LastModified by Organization Details LastModified Time Mother Malignant neoplasm of vertebral column [email or web address] Not available 03/22 08:59:33 Mother Cerebrovascu lar accident [email or web address] Not available 09:00:38 Father Malignant neoplasm of prostate Not available 03/22 08:59:55 Brother Malignant neoplasm of prostate mets to Bladde r [email or web address] Not available 03/22/2025 08:59:55 Sister Malignant neoplasm of lung [email or web address] Not available 03/22 09:00:04 Sister Aneurysm [email or web address] Not availab le 03/22/2025 09:01:43 Paternal Uncle Myocardial infarction [email or web address] Not available 03/03 09:01:10 Medical History No medical history recorded. Gynecological HistoryNo gynecological history recorded. Obstetrics History GPAL:G 0 P 0 0 0 0 Immunizations Vaccine Type Date Status Note Provider Nam e and Address Organization Details Recorded Time Influenza, high-dose, quadrivalent, PF 5 completed Char [place], [place] - [facility] & [place] 03/22/2025 08:54:06 Influenza, high-dose, quadrivalent, PF 0 completed Char [place], [place] - [facility] & [place] 03/22/2025 08:54:06 COVID-19, mRNA, LNP-S, PF, 100 mcg/0.5mL dose or 50 mcg/0.25mL dose 2 completed Char [place], [place] - [facility] & [place] 03/22/2025 08:54:06 COVID-19, mRNA, LNP-S, PF, 100 mcg/0.5mL dose or 50 mcg/0.25mL dose 1 completed Char [place], [place] - [facility] & [place] 03/22/2025 08:54:06 COVID-19, mRNA, LNP-S, PF, 100 mcg/0.5mL dose or 50 mcg/0.25mL dose 1 completed Char lundberg [place] - [facility] - [place] & [place] 03/22/2025 08:54:06 pneumococcal polysaccharide PPV23 2 completed Char lundberg, [place] - [facility] - [place] & [place] 03/22/2025 08:54:06 Pneumococcal conjugate PCV 13 1 completed Char lundberg, NIN[place] - [facility] - [place] & [place] 03/22/2025 08:54:06 Influenza, high-dose, trivalent, PF 2 completed Char lundberg, NINI - [facility] - [place] & [place] 03/22/2025 08:54:06 Influenza, split virus, quadrivalent, PF 2 completed Char lundberg, NINI - [facility] - [place] & [place] 03/22/2025 08:54:06 Past Encounters Encounter ID Performer Location Encounter Start Date Encounter Closed Date Diagnosis/Indication Diagnosis SNOMED-CT Code Diagnosis ICD10 Code Diagnosis Note [id number] Nikos Higginbotham PA-C [facility] [address] [place] [address] 04/25/2025 08:56:30 04/25/2025 09:59:49 Chronic idiopathic constipation 96729686 K59.04 -Start Lubiprosto ne twice daily. She may use Miralax as needed in addition to this.-Cont inue fiber tablets-We discussed possible benefit of pelvic floor therapy. She states she does not think she can make the appointmen ts due to transporta tion issues. Blood-tinged feces 24004 57319 33111 K92.1 -Colonosco py is scheduled. Treat hemorrhoid s per below. Hemorrhoids 80080656 K64 .9 -Start topical hydrocorti sone. Decrease in appetite 643 65044 R63.0 -Potential ly due to constipati on. EGD has been scheduled. Generalize d abdominal pain 173483789 R10.84 -We will schedule EGD and colonoscop [...] ID Guarantor Name 04/25/2025 1 [employer] ([place]) [id number] Efra Beyer [id number] 40 Bhavana Beyer Notes Date Note Type [...] unable to schedule this. Nikos Higginbotham PA-C [address], [place], [address], [place] 04/25/2025 10:14:57 OBGyn Episode No OBEpisode recorded.
--- OUTSIDE RECORDS SUMMARY | 2025-05-03 13:54 | XMS_ITS | Clinical Summary ---
Author Organization Healthcare Address [address] [place] [address] Care Team Providers Care Health Information Assistant Name Role Phone Sepideh Talbot AAYUSH Primary Care Provider [phone] Medications Fluticasone-Umec lidin-Vilant (Trelegy Ellipta) 100-62.5-25 MCG/ACT [...] [facility]-Depression Screening 1955 [facility]-Hepatitis C Screening 1955 [facility]-/Child/Adol SDOH Screenings 1955 [facility]- SDOH Screenings 1973 [facility]-Adult SDOH Screenings 1973 [facility]-DTaP,Tdap,and Td Vaccine s (1 - Tdap) 1974 CT Colonography 2000 Colonoscopy 2000 FIT-DNA 2000 FIT 2000 FOBT 2000 Sigmoidoscopy 2000 [facility]-Colorectal Cancer Screening 2000 [facility]-Breast Cancer Screening 2005 [facility]-Zoster Vaccines (1 of 2) 2005 [id number] Vaccine ( season) 2024 11/15/2021, 02/06/2021, 01/02/2021 [...] patient's age to complete this topic Insurance [facility] [place] [address] Care Teams Health Information Assistant Relationship Specialty Start Date End Date TalbotSepideh, [employer] [address] [facility] [address] [place] [address] PCP - General 06/01/23
[2025-05-03 14:04] LABS: Hematocrit 32.5 % (37.0-47.0); Hemoglobin 11.2 g/dL (12.2-16.2); Immature Granulocytes % 0.9 %; Mean Corpuscular HGB Conc 34.5 g/dL (31.8-35.4); Mean Corpuscular Hemoglobin 33.2 pg (27.0-31.2); Mean Corpuscular Volume 96.4 fl (81-99); Nucleated Red Blood Cells % 0 %; Platelet Count 466 K/mm3 (142-424); Red Blood Count 3.37 M/mm3 (4.20-5.40); Red Cell Distribution Width-SD 44.2 fL; White Blood Count 14.8 K/mm3 (4.8-10.8)
[2025-05-03 14:27] LABS: Chloride 94 mmol/L (98-107); Potassium 4.6 mmoL/L (3.5-5.1); Sodium 131 mmol/L (136-145)
[2025-05-03 14:29] LABS: Blood Urea Nitrogen 18 mg/dl (7-17); Creatinine,Serum 0.60 mg/dl (0.52-1.04); Estimated Glomerular Filt Rate 99 ml/min (>60); GFR (African American) 120 ML/MIN (>60)
[2025-05-03 14:30] LABS: Anion Gap 13.6 mEq/L (5-15); Calcium 9.5 mg/dl (8.4-10.2); Carbon Dioxide 28 mmol/L (22.0-30.0); Glucose 96 mg/dl (74-100); Magnesium 1.8 mg/dl (1.6-2.3)
== END 2025-05-03 23:59 | disposition home or self-care (01) ==
LOC: LAB 13:52
PROVIDERS: PCP Nurse Practitioner; Visit Provider Internal Medicine
DX: I11.9 Hypertensive heart disease without heart failure (principal)
CPT/HCPCS: 36415; 80048; 83735; 85025

== ENCOUNTER 2025-05-16 08:09 | Outpatient (CLI) | payer BC, SELFPAY ==
--- OUTSIDE RECORDS SUMMARY | 2025-05-16 08:14 | XMS_ITS | Data Portability ---
Author Organization [place] - [facility] & MIGUEL Gregory ADMIN Address [address] [place] [id number] Care Team Providers Care Seed Laboratory Assistant Name Role Phone SHILOH DUNLAP Primary Care Provider Assessment Encounter Date Assessment Date Assessment LastModified by Organization Details LastModified Time 04/25/2025 04/25/2025 69-year-old female with generalized abdominal pain, poor appetite, rectal bleeding, and significant constipation [email or web address] Not available 04/25/2025 10:12:13 05/15/2025 05/15/2025 69-year-old female with generalized abdominal pain, poor appetite, rectal bleeding, and significant constipation. EGD and colonoscopy were performed 05/04/25 with findings c/w erosive gastritis with otherwise unremarkable findings. Path c/w mild chronic gastritis, negative for H. pylori. [email or web address] Not available 05/15/2025 10:53:24 Plan of Treatment Reminders Order Date Submit Date Provider Last Modified By Organization Details Last Modified Time Details Appointments FOLLOW UP 15 2024 09:15A Abdi Sanchez MD Not available Not available Not available Establish ed Visit 15 min 2024 10:00A M Nikos Higginbotham PA-C Not available Not available Not available Lab CBC w/ auto diff 2024 025 [email or web address] Not available 05/10/2025 12:46:19 CMP, serum or plasma 2024 025 ESTEFANI Not available 05/10/2025 13:07:18 RADHA + rf (antinucl ear antibodie s + rheumatoi d factor), quantitat vick, serum 2024 025 Not available 05/10/2025 08:55:54 protein, total + protein electroph oresis + immunofix ation, unspecifi ed specimen 2024 025 Not available 05/10/2025 08:55:54 CBC w/ auto diff 2024 025 ESTEFANI Not available 03/22/2025 09:49:33 CMP, serum or plasma 2024 025 ESTEFANI Not available 03/22/2025 11:40:58 ldh, serum or plasma 2024 025 ESTEFANI Not available 03/22/2025 11:41:00 C-reactiv e protein, quantitat vick, serum or plasma 2024 025 Not available 03/29/2025 12:56:46 bcr/alb1, quantitat vick PCR, blood or tissue 2024 025 [email or web address] Not available 03/29/2025 12:56:46 chronic leukemia panel, flow cytometry , unspecifi ed specimen 2024 025 [email or web address] Not available 03/30/2025 08:40:44 jak2 (V617F) mutation, blood/tis tony 2024 025 [email or web address] Not available 03/30/2025 08:40:44 carbon monoxide, QN, blood 2024 025 [email or web address] Not available 03/29/2025 12:56:47 iron + TIBC + ferritin, serum 2024 025 [email or web address] Not available 03/29/2025 12:56:47 iron saturatio n, serum 2024 025 [email or web address] Not available 03/29/2025 12:56:47 vitamin B12 + folate, serum or blood 2024 025 [email or web address] Not available 03/29/2025 12:56:47 mma (methylma lonic acid), serum 2024 025 [email or web address] Not available 03/29/2025 12:56:47 Referral None recorded. Procedures None recorded. Surgeries None recorded. Imaging bone density 2024 025 [id number] [facility] [address], [place], [address], 05/11/2025 08:59:38 Medication Orders docusate sodium 100 mg capsule 2024 025 [facility], [address], [address], 05/15/2025 10:07:51 pantopraz ole 40 mg tablet,de layed release 2024 025 [facility], [address], [address], 05/15/2025 10:04:54 lubiprost one 24 mcg capsule 2024 025 [facility], [address], [address], 04/25/2025 09:41:00 hydrocort isone 2.5 % topical cream with perineal applicato r 2024 025 [facility], [address], [address], 04/25/2025 09:40:59 Patient TargetsNo targets recorded. Patient InstructionsNo instructions recorded. Reason for Referral None Reported. Results Created Date Observation Date Name Description Value Unit Range Abnormal Flag Note LastModifiedBy Organization Detail LastModifiedTime 03/22/2003/22/2025 CBC AUTO W DIFF WBC 16.8 K/uL 4.0-10 .5 high Not Available [facility] ([facility]) [address], [place], [address], 03/22/2025 11:05:59 03/22/20 25 03/22/2025 CBC AUTO W DIFF RBC 3.3 M/mm3 4.2-6. 4 low Not Available [facility] ([facility]) [address], [place], [address], 03/22/2025 11:05:59 03/22/20 25 03/22/2025 CBC AUTO W DIFF HGB 11.2 gm/dL 12.5-1 6.0 low Not Available [facility] ([facility]) [address], [place], [address], 03/22/2025 11:05:59 03/22/20 25 03/22/2025 CBC AUTO W DIFF HCT 32.5 % 37.0-4 7.0 low Not Available [facility] ([facility]) [address], [place], [address], 03/22/2025 11:05:59 03/22/20 25 03/22/2025 CBC AUTO W DIFF MCV 97.3 fL 78-100 Not Available [facility] ([facility]) [address], [place], [address], 03/22/2025 11:05:59 03/22/20 25 03/22/2025 CBC AUTO W DIFF MCH 33.5 pg 27-31 high Not Available [facility] ([facility]) [address], [place], [address], 03/22/2025 11:05:59 03/22/20 25 03/22/2025 CBC AUTO W DIFF MCHC 34.5 g/dL 32-36 Not Available [facility] ([facility]) [address], [place], [address], 03/22/2025 11:05:59 03/22/20 25 03/22/2025 CBC AUTO W DIFF RDW 12.4 % 11.5-1 4.0 Not Available [facility] ([facility]) [address], [place], [address], 03/22/2025 11:05:59 03/22/20 25 03/22/2025 CBC AUTO W DIFF platelet count 435 K/uL 150-45 0 Not Available [facility] ([facility]) [address] [place], [address], 03/22/2025 11:05:59 03/22/20 25 03/22/2025 CBC AUTO W DIFF MPV 9.8 fL 6-9.5 high Not Available [facility] ([facility]) [address] [place], [address], 03/22/2025 11:05:59 03/22/20 25 03/22/2025 CBC AUTO W DIFF neutrophil% 70.6 % 43-65 high Not Available [facility] ([facility]) [address] [facility], [place], [address], 03/22/2025 11:05:59 03/22/20 25 03/22/2025 CBC AUTO W DIFF lymphocyte% 18.4 % 20.5-4 5.5 low Not Available [facility] ([facility]) [address] [place], [address], 03/22/2025 11:05:59 03/22/20 25 03/22/2025 CBC AUTO W DIFF monocyte% 7.7 % 5.5-11 .7 Not Available [facility] ([facility]) [address] [place], [address], 03/22/2025 11:05:59 03/22/20 25 03/22/2025 CBC AUTO W DIFF eosinophil% 1.8 % 0.9-2. 9 Not Available [facility] ([facility]) [address] [place], [address], 03/22/2025 11:05:59 03/22/20 25 03/22/2025 CBC AUTO W DIFF basophil% 0.4 % 0.2-1. 0 Not Available [facility] ([facility]) [address] [facility] [place], [address], 03/22/2025 11:05:59 03/22/20 25 03/22/2025 CBC AUTO W DIFF immature granulocytes % 1.1 % 0.0-0. 8 high Not Available [facility] ([facility]) [address] [facility], [place], [address], 03/22/2025 11:05:59 03/22/20 25 03/22/2025 CBC AUTO W DIFF nucleated red blood cells % 0.0 % Not Available [facility] ([facility]) [address] [facility], [place], [address], 03/22/2025 11:05:59 03/22/20 25 03/22/2025 CBC AUTO W DIFF neutrophil# 11.8 K/uL 2.2-4. 8 high Not Available [facility] ([facility]) [address] [place], [address], 03/22/2025 11:05:59 03/22/20 25 03/22/2025 CBC AUTO W DIFF lymphocyte# 3.1 cell/ mcL 1.3-2. 9 high Not Available [facility] ([facility]) [address] [place], [address], 03/22/2025 11:05:59 03/22/20 25 03/22/2025 CBC AUTO W DIFF monocyte# 1.3 cell/ mcL 0.3-0. 8 high Not Available [facility] ([facility]) [address] [place], [address], 03/22/2025 11:05:59 03/22/20 25 03/22/2025 CBC AUTO W DIFF eosinophil# 0.3 cell/ mcL 0-0.2 high Not Available [facility] ([facility]) [address] [place], [address], 03/22/2025 11:05:59 03/22/20 25 03/22/2025 CBC AUTO W DIFF basophil# 0.1 cell/ mcL 0.0-1. 0 Not Available [facility] ([facility]) [address] [place], [address], 03/22/2025 11:05:59 03/22/20 25 03/22/2025 CBC AUTO W DIFF immature gramulocytes # 0.19 K/uL Not Available [facility] ([facility]) [address] [place], [address], 03/22/2025 11:05:59 03/22/20 25 03/22/2025 CBC AUTO W DIFF nucleated red blood cells # 0.00 K/uL Not Available [facility] ([facility]) [address] [place], [address], 03/22/2025 11:05:59 03/22/20 25 03/22/2025 CBC AUTO W DIFF manual differential NO Not Available [facility] ([facility]) [address] [place], [address], 03/22/2025 11:05:59 03/22/20 25 03/22/2025 IRON STUDY (IRON /TIBC /%SAT ) iron 101 mcg/m L 40-180 Not Available [facility] ([facility]) [address] [place], [address], 03/22/2025 11:24:45 03/22/20 25 03/22/2025 IRON STUDY (IRON /TIBC /%SAT ) TIBC 314 mcg/d L 250-45 0 Not Available [facility] ([facility]) [address] [place], [address], 03/22/2025 11:24:45 03/22/20 25 03/22/2025 IRON STUDY (IRON /TIBC /%SAT ) %sat 32 15-55 Not Available [facility] ([facility]) [address] , [place], [address], 03/22/2025 11:24:45 03/22/20 25 03/22/2025 COMP METAB OLIC PANEL sodium 134 mmol/ L 136-14 5 low Not Available [facility] ([facility]) [address], [place], [address], 03/22/2025 11:40:58 03/22/20 25 03/22/2025 COMP METAB OLIC PANEL potassium 4.1 mmol/ L 3.6-5. 0 Not Available [facility] ([facility]) [address], [place], [address], 03/22/2025 11:40:58 03/22/20 25 03/22/2025 COMP METAB OLIC PANEL chloride 98 mmol/ L 98-107 Not Available [facility] ([facility]) [address] , [place], [address], 03/22/2025 11:40:58 03/22/20 25 03/22/2025 COMP METAB OLIC PANEL carbon dioxide 27.1 mmol/ L 21.0-3 2.0 Not Available [facility] ([facility]) [address] , [place], [address], 03/22/2025 11:40:58 03/22/20 25 03/22/2025 COMP METAB OLIC PANEL anion gap 13.0 Not Available [facility] ([facility]) [address] [place], [address], 03/22/2025 11:40:58 03/22/20 25 03/22/2025 COMP METAB OLIC PANEL glucose 92 mg/dL 70-120 Not Available [facility] ([facility]) [address] [place], [address], 03/22/2025 11:40:58 03/22/20 25 03/22/2025 COMP METAB OLIC PANEL BUN 12 mg/dL 7-18 Not Available [facility] ([facility]) [address], [place], [address], 03/22/2025 11:40:58 03/22/20 25 03/22/2025 COMP METAB OLIC PANEL creatinine 0.7 mg/dL 0.6-1. 3 Not Available [facility] ([facility]) [address], [place], [address], 03/22/2025 11:40:58 03/22/20 25 03/22/2025 COMP METAB [...] caraballo ing kiney funct ion. Not Available [facility] ([facility]) [address], [place], [address], 03/22/2025 11:40:58 03/22/20 25 03/22/2025 COMP METAB OLIC PANEL osmolality (calculated) 279 mOsm/ kg 275-30 1 OSMOL ALITY IS A CALCU LATIO N UTILI ZING THE SERUM /PLAS MA SODIU M, GLUCO SE AND UREA NITRO GEN (BUN) LEVEL S. FOR THE MOST ACCUR ATE RESUL T A MEASU RED SERUM OSMOL ALITY IS SUGGE STED. Not Available [facility] ([facility]) [address], [place], [address], 03/22/2025 11:40:58 03/22/20 25 03/22/2025 COMP METAB OLIC PANEL total protein 6.5 g/dL 6.4-8. 2 Not Available [facility] ([facility]) [address], [place], [address], 03/22/2025 11:40:58 03/22/20 25 03/22/2025 COMP METAB OLIC PANEL albumin 3.4 g/dL 3.4-5. 0 Not Available [facility] ([facility]) [address] , [place], [address], 03/22/2025 11:40:58 03/22/20 25 03/22/2025 COMP METAB OLIC PANEL globulin 3.1 Not Available [facility] ([facility]) [address], [place], [address], 03/22/2025 11:40:58 03/22/20 25 03/22/2025 COMP METAB OLIC PANEL alb/glob ratio 1.1 0.7-2 Not Available [facility] ([facility]) [address], [place], [address], 03/22/2025 11:40:58 03/22/20 25 03/22/2025 COMP METAB OLIC PANEL calcium 8.7 mg/dL 8.5-10 .5 Not Available [facility] ([facility]) [address], [place], [address], 03/22/2025 11:40:58 03/22/20 25 03/22/2025 COMP METAB OLIC PANEL bilirubin total 0.60 mg/dL 0.10-1 .00 Not Available [facility] ([facility]) [address], [place], [address], 03/22/2025 11:40:58 03/22/20 25 03/22/2025 COMP METAB OLIC PANEL AST (SGOT) 19 U/L 0-37 Not Available [facility] ([facility]) [address], [place], [address], 03/22/2025 11:40:58 03/22/20 25 03/22/2025 COMP METAB OLIC PANEL ALT (SGPT) 35 U/L 0-65 Not Available [facility] ([facility]) [address], [place], [address], 03/22/2025 11:40:58 03/22/20 25 03/22/2025 COMP METAB OLIC PANEL alk phosphatase 64 U/L 46-116 Not Available [facility] ([facility]) [address], [place], [address], 03/22/2025 11:40:58 03/22/20 25 03/22/2025 LDH (LD) LDH 194 U/L 0-190 high Not Available [facility] ([facility]) [address] [facility], [place], [address], 03/22/2025 11:41:00 03/22/20 25 03/22/2025 C-FARRAH CTIVE PROTE IN (CRP) C-reactive protein, quant 0.8 mg/dL 0.05-0 .300 high Not Available [facility] ([facility]) [address] [facility], [place], [address], 03/22/2025 11:41:02 03/22/20 25 03/22/2025 RICK TIN ferritin, serum 222 NG/mL 3-244 Not Available [facility] ([facility]) [address] [facility], [place], [address], 03/22/2025 11:41:03 03/22/20 25 03/22/2025 VITAM IN B12 vitamin B12 1117 pg/mL 193-98 6 high *Note : Refer shorty whitfield New Test Metho d in use. Not Available [facility] ([facility]) [address] [place], [address], 03/22/2025 11:51:56 03/22/20 25 03/22/2025 VITAM IN B12 folate (folic acid), serum 9.6 NG/mL 8.6-58 .9 *Note : Refer ence Inter shalonda Caraballo e. New Test Metho d in use. Not Available [facility] ([facility]) [address], [place], [address], 03/22/2025 11:51:56 03/22/20 25 03/28/2025 METHY LMALO HERI ACID QUANT methylmaloni c acid, serum 141 nmol/ L 0-378 Speci men Comme nt: Test( s) 73224 7-Met hylma lonic Acid, Serum Speci men Comme nt: was devel oped and its perfo rmanc e hugh cte risti cs Speci men Comme nt: deter mined by [employer]. It has not been rosi ared or appro chyna Speci men Comme nt: by the Food and Drug Admin istra tion. Perfo rmed at: - [facility] [place] [address] [facility] [place] [address] Lab Direc tor: Diann guerin MD, Phone : [phone] Not Available [facility] ([facility]) [address], [place], [address], 03/28/2025 06:09:59 03/22/20 25 03/28/2025 BCR-A BL1 RT-PC R methodology: Allan t . Total RNA is isola calvin [...] e hugh cteri stics deter mined by [employer]. It has not been clear ed or appro chyna by the Food and Drug Admin istra tion. Not Available [facility] ([facility]) [address] [facility], [place], [address], 03/28/2025 10:11:03/22/2003/28/2025 BCR-A BL1 RT-PC R interpretati on: Negati ve NEGAT VICK for the BCR-A BL1 e1a2 (p190 ), e13a2 (b2a2 , p210) and e14a2 (b3a2 , p210) fusio n trans cript s. These resul ts do not rule out the prese nce of rare BCR-A BL1 trans cript s not detec calvin by this assay . Not Available [facility] ([facility]) [address] [facility], [place], [address], 03/28/2025 10:11:03/22/20 25 03/28/2025 BCR-A BL1 RT-PC R b2a2 transcript <0.003 2 % % Not Available [facility] ([facility]) [address] [place], [address], 03/28/2025 10:11:03/22/20 25 03/28/2025 BCR-A BL1 RT-PC R b3a2 transcript <0.003 2 % % Not Available [facility] ([facility]) [address] [place], [address], 03/28/2025 10:11:03/22/20 25 03/28/2025 BCR-A BL1 RT-PC R e1a2 transcript <0.003 2 % % Not Available [facility] ([facility]) [address] [place], [address], 03/28/2025 10:11:09 03/22/20 25 03/28/2025 BCR-A BL1 RT-PC R pdf image . Perfo rmed at: [facility] - [facility] [place] [address] [facility], [place] [address] Lab Direc tor: Tomasa Alejandre [facility] , Phone : [phone] Perfo rmed at: FÉLIX - [facility] [place] [address] , [place] [address] Lab Direc tor: Tomasa Coelhokaylee [facility] , Phone : [phone] Not Available [facility] ([facility]) [address], [place], [address], 03/28/2025 10:11:09 03/22/2003/28/2025 BCR-A BL1 RT-PC R [...] to a 3-log reduc tion. Resul ts pelonul d be corre lated with appro priat e clini sabina and labor atory infor matio n as indic ated. Not Available [facility] ([facility]) [address], [place], [address], 03/28/2025 10:11:09 03/22/2003/28/2025 BCR-A BL1 RT-PC R references: Commen t . 1) Laron s T, Devaughn ord S. Molec ular monit oring of chron ic myelo id [facility]uke momo. Semin Hemat ol. 2002; 40(2 Suppl 2):62 -68. . 2) [facility] Clini sabina Pract ice Guide lines in Oncol ogy Chron ic Myelo id [facility] momo Versi on 5 - Augus t 2023 . 3) Jannet Ordonez P, Kenn tafoya P, et al. Estab lishm ent of the of the first World Healt h Organ izati on Inter natio nal Emily ic Refer ence Panel for quant itati on of BCR-A BL mRNA. Blood . 2010 25; 116(2 2):e1 11-11 7. Not Available [facility] ([facility]) [address] [facility], [place], [address], 03/28/2025 10:11:09 03/22/20 25 03/28/2025 BCR-A BL1 RT-PC R director review: Allan powell Techn ical Timpson nent perfo rmed at [facility] [place] . Ceasar flores al Timpson nent perfo rmed by: Radha Nelson, PhD, FACMG Direc tor, Molec ular Oncol ogy [facility] [place] YWYUD [address] [facility] [address] [phone] Not Available [facility] ([facility]) [address] [facility], [place], [address], 03/28/2025 10:11:09 03/22/20 25 03/29/2025 CARBO N MONOX NUVIA QN(CA RBOXY HEM) carbon monoxide, blood TNP TEST NOT PERFO RMED SPECI MEN CLOTT ED--P ATIEN T WILL BE MACHADO D BACK FOR RECOL LECTI ON Not Available [facility] ([facility]) [address] [facility], [place], [address], 03/29/2025 12:52:01 03/22/20 25 03/29/2025 CHRON IC LEUKE MOMO/L YMPHO MA specimen type Allan powell . Perip heral blood Not Available [facility] ([facility]) [address] [facility], [place], [address], 03/29/2025 13:11:53 03/22/20 25 03/29/2025 CHRON IC LEUKE MOMO/L YMPHO MA clinical information Commen sherry . Taylor powell CBC was not avail able for revie w at the time this r eport was prepa red. Not Available [facility] ([facility]) [address], [place], [address], 03/29/2025 13:11:53 03/22/20 25 03/29/2025 CHRON IC LEUKE MOMO/L YMPHO MA comment: Commselina t . Each antib vickie in this assay was utili zed to asses s for poten tial abnor malit ies of studi ed cell popul ation s or to hugh cteri ze ident ified abnor malit ies. . This test was devel oped and its perfo rmanc e hugh cteri stics deter mined by [employer] [facility]. It has not been clear ed or appro chyna by the U.S. Food and Drug Admin istra tion. . The FDA has deter mined that such clear ance or appro shalonda is not neces aneudy. This test is used for clini sabina purpo ses. It shoul d not be regar ded as inves tigat ional or for resea rch. Perfo rmed at: -Y - [facility] [place] [address] [place], [place] [address] Lab Direc tor: Tomasa Alejandre [facility] , Phone : [phone] Perfo rmed at: TG - [facility] [place] [address] , [place] [address] Lab Direc tor: Tomasa Alejandre [facility] , Phone : [phone] Not Available [facility] ([facility]) [address], [place], [address], 03/29/2025 13:11:53 03/22/20 25 03/29/2025 CHRON IC LEUKE MOMO/L YMPHO MA flow comment Commen t . JAK2 V617F mutat ion joon sis is reque sted and the resul t is pendi ng. Previ ous negat vick pheno typic resul t was revie wed (02/19 ) . Not Available [facility] ([facility]) [address] [facility], [place], [address], 03/29/2025 13:11:53 03/22/20 25 03/29/2025 CHRON IC LEUKE MOMO/L YMPHO MA flow interpretati on Commen t . No signi fican t immun ophen otypi c abnor malit y detec calvin Not Available [facility] ([facility]) [address] [facility], [place], [address], 03/29/2025 13:11:53 03/22/20 25 03/29/2025 CHRON IC [...] ells 90%, NK cells 3%. Not Available [facility] ([facility]) [address] [facility], [place], [address], 03/29/2025 13:11:53 03/22/20 25 03/29/2025 CHRON IC LEUKE MOMO/L YMPHO MA resulting path name Commen t . Magdiel Arnett M.D. Ph.D Not Available [facility] ([facility]) [address] [facility], [place], [address], 03/29/2025 13:11:53 03/22/20 25 03/29/2025 CHRON IC [...] l LAMBD A Herminia l Not Available [facility] ([facility]) [address] [facility], [place], [address], 03/29/2025 13:11:53 03/22/20 25 03/29/2025 CHRON IC LEUKE MOMO/L YMPHO MA analysis and gating strategy Commen t . 8 color joon sis with CD45/ SSC minerva ha Techn ical- Joon sis perfo rmed at [facility], [facility], [address] [place] [address] , Direc tor: Tomasa Alejandre , [facility] , [phone] Not Available [facility] ([facility]) [address] [facility], [place], [address], 03/29/2025 13:11:53 03/22/20 25 03/29/2025 CHRON IC LEUKE MOMO/L YMPHO MA viability Commen t . 84% Not Available [facility] ([facility]) [address] [facility], [place], [address], 03/29/2025 13:11:53 03/22/20 25 03/29/2025 JAK2 V617 [...] with these disor ders. . Not Available [facility] ([facility]) [address], [place], [address], 03/29/2025 13:11:54 03/22/2003/29/2025 JAK2 V617 MUTAT ION DETEC TION director review Allan Nelson, PhD, [facility] Direc tor, Molec ular Oncol ogy [facility] [place] [address] [phone] . This test was devel oped and its perfo rmanc e hugh cteri stics deter mined by [employer] r[employer]. It has not been clear ed or appro chyna by the Food and Drug Admin istra tion. Perfo rmed at: [facility] - [facility] [place] [address] [place] [email or web address] [address] Lab Direc tor: Tomasa Alejandre [facility] , Phone : [phone] Perfo rmed at: F[facility] - [facility] [place] [email or web address] , [place] [address] Lab Direc tor: Tomasa Alejandre [facility] , Phone : [phone] Not Available [facility] ([facility]) [address], [place], [address], 03/29/2025 13:11:54 03/22/20 25 03/29/2025 JAK2 V617 MUTAT ION DETEC TION background Allan powell . JAK2 is a cytop lasmi c tyros ine kinas e with a sneed role in signa l trans ducti on from multi ple hemat opoie tic growt h facto r receptionist clerk tors. A point mutat ion withi n [...] of 1%. . Refer ences : Aury sarkar EJ, Jose SHAH, Justin duran PJ, et al. Acqui red mutat ion of the tyros ine kinas e JAK2 in human myelo proli ferat vick disor ders. Ty t. 2004Jan 18 ; 365(9 223): 1054- 1061. David Sandoval, Theo V, [place] MARLA. A uniqu e clona l JAK2 mutat ion leadi ng to const ituti ve signa ling cause s polyc ythae momo vera. Natur e. 2005 Feb 27; 434(4 408): 1149- 1146. Stan connolly R, Yudi galeana F, Marcie , et al. A gain- of- funct ion mutat ion of JAK2 in myelo proli ferat vick disor ders. N Engl J Med. 2005 Feb 27; 352(1 7):17 79-17 90. Not Available Psychiatric ([facility]) [address] , [place], [address], 03/29/2025 13:11:54 03/22/20 25 03/29/2025 CARBO N [...] Perfo rmed at: [facility] [address] [facility] [place] [id number] Lab Direc tor: Diann guerin MD, Phone : [phone] Not Available Psychiatric ([facility]) [address] , [place], [address], 03/29/2025 13:11:55 05/10/20 25 05/10/2025 CBC AUTO W DIFF WBC 13.4 K/uL 4.0-10 .5 high Not Available Psychiatric ([facility]) [address] , [place], [address], 05/10/2025 12:46:19 05/10/20 25 05/10/2025 CBC AUTO W DIFF RBC 3.5 M/mm3 4.2-6. 4 low Not Available Psychiatric ([facility]) [address], [place], [place], [address], 05/10/2025 12:46:19 05/10/20 25 05/10/2025 CBC AUTO W DIFF HGB 11.7 gm/dL 12.5-1 6.0 low Not Available [facility] ([facility]) [address], [place], [address], 05/10/2025 12:46:19 05/10/20 25 05/10/2025 CBC AUTO W DIFF HCT 34.7 % 37.0-4 7.0 low Not Available [facility] ([facility]) [address], [place], [address], 05/10/2025 12:46:19 05/10/20 25 05/10/2025 CBC AUTO W DIFF MCV 98.3 fL 78-100 Not Available [facility] ([facility]) [address], [place], [address], 05/10/2025 12:46:19 05/10/20 25 05/10/2025 CBC AUTO W DIFF MCH 33.1 pg 27-31 high Not Available [facility] ([facility]) [address], [place], [address], 05/10/2025 12:46:19 05/10/20 25 05/10/2025 CBC AUTO W DIFF MCHC 33.7 g/dL 32-36 Not Available [facility] ([facility]) [address], [place], [address], 05/10/2025 12:46:19 05/10/20 25 05/10/2025 CBC AUTO W DIFF RDW 12.7 % 11.5-1 4.0 Not Available [facility] ([facility]) [address], [place], [address], 05/10/2025 12:46:19 05/10/20 25 05/10/2025 CBC AUTO W DIFF platelet count 560 K/uL 150-45 0 high Not Available [facility] ([facility]) [address] [place], [address], 05/10/2025 12:46:19 05/10/20 25 05/10/2025 CBC AUTO W DIFF MPV 9.8 fL 6-9.5 high Not Available [facility] ([facility]) [address], [place], [address], 05/10/2025 12:46:19 05/10/20 25 05/10/2025 CBC AUTO W DIFF neutrophil% 67.3 % 43-65 high Not Available [facility] ([facility]) [address], [place], [address], 05/10/2025 12:46:19 05/10/20 25 05/10/2025 CBC AUTO W DIFF lymphocyte% 17.6 % 20.5-4 5.5 low Not Available [facility] ([facility]) [address] [place], [address], 05/10/2025 12:46:19 05/10/20 25 05/10/2025 CBC AUTO W DIFF monocyte% 7.5 % 5.5-11 .7 Not Available [facility] ([facility]) [address] [place], [address], 05/10/2025 12:46:19 05/10/2005/10/2025 CBC AUTO W DIFF eosinophil% 6.6 % 0.9-2. 9 high Not Available [facility] ([facility]) [address] [place], [address], 05/10/2025 12:46:19 05/10/20 25 05/10/2025 CBC AUTO W DIFF basophil% 0.5 % 0.2-1. 0 Not Available [facility] ([facility]) [address] [facility], [address], 05/10/2025 12:46:19 05/10/20 25 05/10/2025 CBC AUTO W DIFF immature granulocytes % 0.5 % 0.0-0. 8 Not Available [facility] ([facility]) [address], [place], [address], 05/10/2025 12:46:19 05/10/20 25 05/10/2025 CBC AUTO W DIFF nucleated red blood cells % 0.0 % Not Available [facility] ([facility]) [address], [place], [address], 05/10/2025 12:46:19 05/10/20 25 05/10/2025 CBC AUTO W DIFF neutrophil# 9.0 K/uL 2.2-4. 8 high Not Available [facility] ([facility]) [address], [place], [address], 05/10/2025 12:46:19 05/10/20 25 05/10/2025 CBC AUTO W DIFF lymphocyte# 2.4 cell/ mcL 1.3-2. 9 Not Available [facility] ([facility]) [address], [place], [address], 05/10/2025 12:46:19 05/10/20 25 05/10/2025 CBC AUTO W DIFF monocyte# 1.0 cell/ mcL 0.3-0. 8 high Not Available [facility] ([facility]) [address] [place], [address], 05/10/2025 12:46:19 05/10/20 25 05/10/2025 CBC AUTO W DIFF eosinophil# 0.9 cell/ mcL 0-0.2 high Not Available [facility] ([facility]) [address], [place], [address], 05/10/2025 12:46:19 05/10/20 25 05/10/2025 CBC AUTO W DIFF basophil# 0.1 cell/ mcL 0.0-1. 0 Not Available [facility] ([facility]) [address] , [place], [address], 05/10/2025 12:46:19 05/10/20 25 05/10/2025 CBC AUTO W DIFF immature gramulocytes # 0.07 K/uL Not Available [facility] ([facility]) [address] , [place], [address], 05/10/2025 12:46:19 05/10/20 25 05/10/2025 CBC AUTO W DIFF nucleated red blood cells # 0.00 K/uL Not Available [facility] ([facility]) [address] , [place], [address], 05/10/2025 12:46:19 05/10/20 25 05/10/2025 CBC AUTO W DIFF manual differential NO Not Available [facility] ([facility]) [address] , [place], [address], 05/10/2025 12:46:19 05/10/20 25 05/10/2025 COMP METAB OLIC PANEL sodium 133 mmol/ L 136-14 5 low Not Available [facility] ([facility]) [address] , [place], [address], 05/10/2025 13:07:18 05/10/20 25 05/10/2025 COMP METAB OLIC PANEL potassium 4.0 mmol/ L 3.6-5. 0 Not Available [facility] ([facility]) [address] , [place], [address], 05/10/2025 13:07:18 05/10/20 25 05/10/2025 COMP METAB OLIC PANEL chloride 96 mmol/ L 98-107 low Not Available [facility] ([facility]) [address] , [place], [address], 05/10/2025 13:07:18 05/10/20 25 05/10/2025 COMP METAB OLIC PANEL carbon dioxide 27.0 mmol/ L 21.0-3 2.0 Not Available [facility] ([facility]) [address], [place], [address], 05/10/2025 13:07:18 05/10/20 25 05/10/2025 COMP METAB OLIC PANEL anion gap 14.0 Not Available [facility] ([facility]) [address], [place], [address], 05/10/2025 13:07:18 05/10/20 25 05/10/2025 COMP METAB OLIC PANEL glucose 83 mg/dL 70-120 Not Available [facility] ([facility]) [address], [place], [address], 05/10/2025 13:07:18 05/10/20 25 05/10/2025 COMP METAB OLIC PANEL BUN 9 mg/dL 7-18 Not Available [facility] ([facility]) [address], [place], [address], 05/10/2025 13:07:18 05/10/20 25 05/10/2025 COMP METAB OLIC PANEL creatinine 0.6 mg/dL 0.6-1. 3 Not Available [facility] ([facility]) [address] [place], [address], 05/10/2025 13:07:18 05/10/20 25 05/10/2025 COMP METAB OLIC PANEL glomerular filtration rate 97 mlper min 60- GFR LIMIT ATION : [...] caraballo ing kiney funct ion. Not Available [facility] ([facility]) [address] , [place], [address], 05/10/2025 13:07:18 05/10/20 25 05/10/2025 COMP METAB OLIC PANEL osmolality (calculated) 275 mOsm/ kg 275-30 1 OSMOL ALITY IS A CALCU LATIO N UTILI ZING THE SERUM /PLAS MA SODIU M, GLUCO SE AND UREA NITRO GEN (BUN) LEVEL S. FOR THE MOST ACCUR ATE RESUL T A MEASU RED SERUM OSMOL ALITY IS SUGGE STED. Not Available [facility] ([facility]) [address] , [place], [address], 05/10/2025 13:07:18 05/10/20 25 05/10/2025 COMP METAB OLIC PANEL total protein 7.3 g/dL 6.4-8. 2 Not Available [facility] ([facility]) [address], [place], [address], 05/10/2025 13:07:18 05/10/20 25 05/10/2025 COMP METAB OLIC PANEL albumin 3.9 g/dL 3.4-5. 0 Not Available [facility] ([facility]) [address] , [place], [address], 05/10/2025 13:07:18 05/10/20 25 05/10/2025 COMP METAB OLIC PANEL globulin 3.4 Not Available [facility] ([facility]) [address] , [place], [address], 05/10/2025 13:07:18 05/10/20 25 05/10/2025 COMP METAB OLIC PANEL alb/glob ratio 1.1 0.7-2 Not Available [facility] ([facility]) [address] , [place], [address], 05/10/2025 13:07:18 05/10/20 25 05/10/2025 COMP METAB OLIC PANEL calcium 9.8 mg/dL 8.5-10 .5 Not Available [facility] ([facility]) [address] , [place], [address], 05/10/2025 13:07:18 05/10/20 25 05/10/2025 COMP METAB OLIC PANEL bilirubin total 0.60 mg/dL 0.10-1 .00 Not Available [facility] ([facility]) [address] , [place], [address], 05/10/2025 13:07:18 05/10/20 25 05/10/2025 COMP METAB OLIC PANEL AST (SGOT) 20 U/L 0-37 Not Available [facility] ([facility]) [address] , [place], [address], 05/10/2025 13:07:18 05/10/20 25 05/10/2025 COMP METAB OLIC PANEL ALT (SGPT) 26 U/L 0-65 Not Available [facility] ([facility]) [address] , [place], [address], 05/10/2025 13:07:18 05/10/20 25 05/10/2025 COMP METAB OLIC PANEL alk phosphatase 77 U/L 46-116 Not Available [facility] ([facility]) [address] , [place], [address], 05/10/2025 13:07:18 05/10/20 25 05/11/2025 RHEUM ATOID ARTHR ITIS FACTO R,QN RA latex turbidity <10.0 IU/mL <14.0 Perfo rmed at: CB - [facility] [address] [place] [address] Lab Direc tor: Jacob oreilly PhD, Phone : [phone] Not Available [facility] ([facility]) [address] , [place], [address], 05/11/2025 08:14:57 05/10/20 25 05/11/2025 RADHA W/REF TONIO IF POSIT VICK antinuclear Ab, direct Negati ve negati ve Perfo rmed at: - [facility] [address] [facility], [place] [id number] [facility]0 Lab Direc tor: Jacob oreilly PhD, Phone : [phone] Not Available [facility] ([facility]) [address] , [place], [address], 05/11/2025 13:13:06 05/10/20 25 05/11/2025 PROTE IN ELECT ROPHO RESIS SERUM total protein, serum 6.4 g/dL 6.0-8. 5 Not Available [facility] ([facility]) [address] , [place], [address], 05/11/2025 17:11:23 05/10/20 25 05/11/2025 PROTE IN ELECT ROPHO RESIS SERUM albumin 3.7 g/dL 2.9-4. 4 Not Available [facility] ([facility]) [address], [place], [address], 05/11/2025 17:11:23 05/10/20 25 05/11/2025 PROTE IN ELECT ROPHO RESIS SERUM alpha-1 globulin 0.3 g/dL 0.0-0. 4 Not Available [facility] ([facility]) [address] , [place], [address], 05/11/2025 17:11:23 05/10/20 25 05/11/2025 PROTE IN ELECT ROPHO RESIS SERUM [id number] ulin 0.9 g/dL 0.4-1. 0 Not Available [facility] ([facility]) [address] , [place], [address], 05/11/2025 17:11:23 05/10/20 25 05/11/2025 PROTE IN ELECT ROPHO RESIS SERUM beta globulin 1.0 g/dL 0.7-1. 3 Not Available [facility] ([facility]) [address], [place], [address], 05/11/2025 17:11:23 05/10/20 25 05/11/2025 PROTE IN ELECT ROPHO RESIS SERUM gamma globulin 0.5 g/dL 0.4-1. 8 Not Available [facility] ([facility]) [address], [place], [address], 05/11/2025 17:11:23 05/10/20 25 05/11/2025 PROTE IN ELECT ROPHO RESIS SERUM M-spike Not Observ ed g/dL not observ ed Not Available [facility] ([facility]) [address], [place], [address], 05/11/2025 17:11:23 05/10/20 25 05/11/2025 PROTE IN ELECT ROPHO RESIS SERUM total globulin 2.7 g/dL 2.2-3. 9 Not Available [facility] ([facility]) [address] [facility], [place], [address], 05/11/2025 17:11:23 05/10/20 25 05/11/2025 PROTE IN ELECT ROPHO RESIS SERUM A/G ratio 1.4 0.7-1. 7 Not Available [facility] ([facility]) [address] [place], [address], 05/11/2025 17:11:23 05/10/20 25 05/11/2025 PROTE IN ELECT ROPHO RESIS SERUM pdf . Perfo rmed at: - [facility] [address] [place] [address] Lab Dire tor: Jacob oreilly PhD, Phone : [phone] Not Available [facility] ([facility]) [address] , [place], [address], 05/11/2025 17:11:23 05/10/20 25 05/11/2025 PROTE IN ELECT [facility] RESIS SERUM please note Commen t . Prote in elect ropho resis scan will follo w via compu ter, mail, or couri yves belle. Not Available [facility] ([facility]) [address], [place], [address], 05/11/2025 17:11:23 05/10/20 25 05/15/2025 IMMUN OFIXA TION, SERUM (KAYLEE) IgA 138 mg/dL 87-352 Not Available [facility] ([facility]) [address], [place], [address], 05/15/2025 15:11:58 05/10/20 25 05/15/2025 IMMUN OFIXA TION, SERUM (KAYLEE) IgM 75 mg/dL 26-217 Perfo rmed at: - [facility] [place] [address] Lab Direc tor: Jacob oreilly PhD, Phone : [phone] Not Available [facility] ([facility]) [address] [facility], [place], [address], 05/15/2025 15:11:58 05/10/20 25 05/15/2025 IMMUN OFIXA TION, SERUM (KAYLEE) IgG 533 mg/dL 586-16 02 low Not Available [facility] ([facility]) [address] [facility], [place], [address], 05/15/2025 15:11:58 05/10/20 25 05/15/2025 IMMUN OFIXA TION, SERUM (KAYLEE) immunofixati on, serum (kaylee) Commen t No monoc lonal ity detec calvin. Not Available [facility] ([facility]) [address], [place], [address], 05/15/2025 15:11:58 Result Notes None recorded. Problems Name Problem SNOMED Code Status Onset Date Resolution Date Notes Provider Name and Address Organization Details Recorded Time Chronic idiopathic constipati on 87781357 Active [address], [place], [place], [address] [place] [address] , [place] - [facility] & [place] 5 09:32:05 Blood-ting ed feces 2183429520555 02 Active [address], [place], [place], [address] [place] [address] , [place] [facility] & [place] 5 09:32:10 Hemorrhoid s 67703341 Active [address], [place], [place], [address] [place] [address] , [place] [facility] & [place] 5 09:32:18 Decrease in appetite 44471259 Active [address], [place], [address] [place] [address] , [place] - [facility] & [place] 5 09:34:40 Generalize d abdominal pain 293383369 Active [address], [place], [place], [address] [place] [address] , [place] [facility] & [place] 5 09:35:09 Erosive gastritis 8044815695049 100 Active [address], [place], [place], [address] [place] [address] , [place] [facility] & [place] 5 10:01:39 Problem Notes None recorded. Procedures Surgical History Date Name Laterality Status Provider Name and Address Organization Details Recorded Time 05/10/20 25 Venipuncture completed DAY[address], [place], [place], [address] [place] [address], [place] - [facility] & [place] 04/26/2025 13:50:28 07/03/20 25 Date of Last Colonoscopy completed Char TERRAZAS - [facility] - [place] & [place] 05/10/2025 08:26:45 04/06/20 25 Most Recent Bone Density completed Char Tay NINI - [facility] - [place] & [place] 05/10/2025 08:26:45 03/22/20 25 Venipuncture completed Danna TERRAZAS - [facility] - [place] & [place] 03/22/2025 09:33:48 01/22/20 25 completed Char Bejaranoer NINI - [facility] - [place] & [place] 05/10/2025 08:26:45 11/02/19 25 Colonoscopy completed Char Bejaranoer NINI - [facility] - [place] & [place] 05/10/2025 08:26:45 11/02/19 24 Cholecystectomy completed Char Bejaranoer NINI - [facility] - [place] & [place] 05/10/2025 08:26:45 total hysterectomy completed Karlee TERRAZAS - [facility] & [place] 03/22/2025 09:02:54 cholecystectomy completed Char Bejaranoer NINI - [facility] & [place] 03/22/2025 09:03:05 colonoscopy completed Char Bejaranoer NINI - [facility] - [place] & [place] 03/22/2025 09:03:38 Imaging Results None recorded. Procedure Notes None recorded. Medical Equipment None Reported. Allergies Allergen ID Allergen Name Allergen Category Reaction Reaction Severity Criticality Documentation Date Start Date Code Code System Note Provider Name and Address Organization Details Recorded Time [id number] tramadol medicatio n Not available Not available [facility] 03/22/2025 65689 RxNorm Char Bejaranoer null, NINI - [facility] & [place] 08:54:39 986506 Bactrim medicatio n Not available Not available [facility] 03/22/2025 63294 9 RxNorm Char Tay null, [place] - [facility] - [place] & [place] 08:54:57 [id number] levofloxa katy medicatio n Not available Not available [facility] 03/22/2025 17960 RxNorm Char Tay null, [place] - [facility] [place] & [place] 5 08:57:05 Medications Name Sig Start Date [...] TAKE 3 TABLETS BY MOUTH ONCE DAILY 05/15 completed Not Available Not Available Not Available amlodipine 5 mg tablet active Not [...] completed Not Available Not Available Not Available spironolact one 25 mg tablet TAKE 1/2 (ONE-HALF ) TABLET BY MOUTH ONCE DAILY active Not Available [...] t Available amoxicillin 875 mg tablet TAKE 1 TABLET BY MOUTH TWICE DAILY FOR 10 DAYS 05/10 completed Not Available Not Available Not Available amlodipine 10 mg tablet 03/22 completed Not Available Not Available Not Available benzonatate 100 mg capsule TAKE ONE CAPSULE BY MOUTH THREE TIMES DAILY NEEDED FOR cough 03/22 completed Not Available Not Available Not Available pantoprazol e 40 mg tablet,marie yed release Take 1 tablet every day by oral route for 30 days. 2024 active Not Available Not Available Not Avai lable triamcinolo ne acetonide 0.1 % topical ointment [...] Not Available Not Available No t Available docusate sodium 100 mg capsule Take 1 capsule every day by oral route for 30 days. 2024 active Not Available Not Available Not Avai lable verapamil ER (PM) 100 mg capsule 24hr pellet CT,ext.rele ase TAKE 1 CAPSULE BY MOUTH AT BEDTIME NIGHTLY 03/22 completed Not Available Not Available Not Available hydrocortis one 2.5 % topical cream APPLY A THIN LAYER OF CREAM TO AFFECTED AREA 2-4 TIMES DAILY active Not Available Not Available No t Available hydrochloro thiazide 25 mg tablet TAKE [...] NEEDED FOR PAIN MAY CAUSE DROWSINES S 05/15 completed Not Available Not Available Not Available olmesartan 20 mg tablet TAKE 1 TABLET BY MOUTH ONCE DAILY active Not Available [...] t Available lubiproston e 24 mcg capsule TAKE 1 CAPSULE BY MOUTH TWICE DAILY active Not Available Not Available No t Available sodium chloride 1,000 mg soluble tablet TAKE 1 TABLET BY MOUTH ONCE DAILY active Not Available Not Available No t Available peg 3350-electr olytes 236 gram-22.74 gram-6.74 gram-5.86 gram solution USE DIRECTED PER INSTRUCTI ONS GIVEN AT DRS OFFICE active Not Available Not Available No t Available cholecalcif vishal (vitamin D3) 1,250 mcg (50,000 [...] blood by Pulse oximetry Heart rate Systolic And Diastolic Provider Name and Address Organization Details Last Updated DateTime 5 165.1 cm 28.8 kg/m2 30837.8 4 g 98.6 [degF] 94 % 94 % 68 /min 116/61 mm[Hg] Char Cross [facility] & [place] 5 08:53:50 Date Recorded Body height Body mass index (BMI) Body weight Body temperature Oxygen saturation Oxygen saturation in Arterial blood by Pulse oximetry Heart rate Systolic And Diastolic Provider Name and Address Organization Details Last Updated DateTime 5 165.1 cm 28.7 kg/m2 00668.3 2 g 97.2 [degF] 95 % 95 % 72 /min 134/72 mm[Hg] [facility] & [place] 5 09:08:45 Date Recorded Body height Body mass index (BMI) Body weight Body temperature Oxygen saturation Oxygen saturation in Arterial blood by Pulse oximetry Heart rate Systolic And Diastolic Provider Name and Address Organization Details Last Updated DateTime 5 165.1 cm 28.4 kg/m2 52020.5 8 g 97.8 [degF] 94 % 94 % 71 /min 146/67 mm[Hg] Char Cross [facility] & [place] 5 08:26:06 Date Recorded Body height Body mass index (BMI) Body weight Body temperature Oxygen saturation Oxygen saturation in Arterial blood by Pulse oximetry Heart rate Systolic And Diastolic Provider Name and Address Organization Details Last Updated DateTime 5 165.1 cm 28.4 kg/m2 38892.2 2 g 98.1 [degF] 95 % 95 % 71 /min 137/75 mm[Hg] [facility] & [place] 5 09:32:45 Social History Question Answer Notes LastModified by Organizat ion Details LastModified Time Tobacco Smoking Status Current Every Day Smoker Char Cross [facility] & [place] 03/22/2025 09:02:39 What Is Your Level Of Caffeine Consumption? Occasional [email or web address] Information not available 03/22/2025 What Was The Date Of Your Most Recent Tobacco Screening? 05/07/2025 Information not available 05/10/2025 At What Age Did You Start Smoking Tobacco? 15 Information not available 03/22/2025 Are You Passively Exposed To Smoke? No Information not available 05/10/2025 How Much Tobacco Do You Smoke? 0.5 PPD [email or web address] Information not available 03/22/2025 Has Tobacco Cessation Counseling Been Provided? No [email or web address] Information not available 03/22/2025 How Many Years Have You Smoked Tobacco? 25 [email or web address] Information not available 05/10/2025 Sex: Unknown Functional Status Question Answer Note LastModified by Organizat ion Details LastModified Time Do you use any illicit or recreational drugs? No [email or web address] Information not available 03/22/2025 Do you or have you ever used any other forms of tobacco or nicotine? No [email or web address] Information not available 03/22/2025 What is your level of alcohol consumption? None Information not available 03/22/2025 Do you or have you ever used smokeless tobacco? Never used smokeless tobacco [email or web address] Information not available 05/10/2025 What is your exercise level? Occasional [email or web address] Information not available 05/10/2025 Mental Status None recorded. Family History Relationship Description Onset Age of this Age Resolved Age Notes LastModified by Organization Details LastModified Time Mother Malignant neoplasm of vertebral column [email or web address] bel Not available 05/15/2025 09:21:51 Mother Cerebrovascu lar accident [email or web address] Not available 09:00:38 Father Malignant neoplasm of prostate [email or web address] bel Not available 05/15/2025 09:21:51 Brother Malignant neoplasm of prostate mets to Bladde r [email or web address] bel Not available 05/15/2025 09:21:51 Sister Malignant neoplasm of lung [email or web address] bel Not available 05/15/2025 09:21:51 Sister Aneurysm [email or web address] bel Not available 05/15/2025 09:21:51 Paternal Uncle Myocardial infarction [email or web address] Not available 03/03 09:01:10 Medical History Condition Response Osteoporosis/Osteopenia Y Anemia Y Spine Problems Y Back Problems Y Hypertension Y Obstructive Sleep Apnea Y COPD Y GI Problems Y Gynecological History Statement/Question Response Current Control Method N/A Date of Last Colonoscopy 05/04/2025 01/21/2025 Most Recent Bone Density 04/06/2025 Sexually Active? N Obstetrics History GPAL:G 0 P 0 0 0 0 Immunizations Vaccine Type Date Status Note Provider Nam e and Address Organization Details Recorded Time Influenza, high-dose, quadrivalent, PF 5 completed Char Cross [place], [place] [facility] & [place] 03/22/2025 08:54:06 Influenza, high-dose, quadrivalent, PF 0 completed Char lundberg, [place] [facility] & [place] 03/22/2025 08:54:06 COVID-19, mRNA, LNP-S, PF, 100 mcg/0.5mL dose or 50 mcg/0.25mL dose 2 completed Char lundberg, NINI - [facility] & [place] 03/22/2025 08:54:06 COVID-19, mRNA, LNP-S, PF, 100 mcg/0.5mL dose or 50 mcg/0.25mL dose 1 completed Char lundberg, NINI - [facility] & [place] 03/22/2025 08:54:06 COVID-19, mRNA, LNP-S, PF, 100 mcg/0.5mL dose or 50 mcg/0.25mL dose 1 completed Char lundberg, NINI - [facility] & [place] 03/22/2025 08:54:06 pneumococcal polysaccharide PPV23 2 completed Char lundberg, NINI - [facility] & [place] 03/22/2025 08:54:06 Pneumococcal conjugate PCV 13 1 completed Char [place], [place] [facility] & [place] 03/22/2025 08:54:06 Influenza, high-dose, trivalent, PF 2 completed Char lundberg, NINI - [facility] & [place] 03/22/2025 08:54:06 Influenza, split virus, quadrivalent, PF 2 completed Char Cross [place], [place] - [facility] - [place] & [place] 03/22/2025 08:54:06 Past Encounters Encounter ID Performer Location Encounter Start Date Encounter Closed Date Diagnosis/Indication Diagnosis SNOMED-CT Code Diagnosis ICD10 Code Diagnosis Note [id number] Pravin Sanchez MD [facility] [address] [place] [address] 03/22/2025 08:30:33 03/22/2025 09:18:49 Leukocytosis 836161600 D72.829 Patient with current smoking history. Patient [...] out other pathology. Encouraged smoking cessation. Anemia [id number] D64.9 Labs performed February 27, 2025 with white blood cell count 12.5. Red blood cell count 3.72. Hemoglobin 12.6 and hematocrit 35.8. MCV 96.2.Mild normocytic anemia. Will follow up iron studies. Will follow up B12 and folate. Cobalamin deficiency 190 [id number] E53.8 Prior history of B12 deficiency . Will follow up repeat labs. Vitamin D deficiency 347 10539 E55.9 Prior history of vitamin-D deficiency . Vitamin-D level normal on February 27, 2025. Would recommend bone density testing if patient has not already had. Cigarette smoker [id number] 7 F17.210 Patient with current smoking history. Patient smokes about 1/2 pack per day. Patient started smoking at age 14. Patient with 30 pack-year history of smoking. Due to smoking history discussed with patient low-dose lung cancer screening CT scan.Patigeoff devries recently had low-dose lung cancer screening CT scan in early 2024. Centriacin ar emphysema 85609282 J43.2 Patient with history of COPD. Currently on Trelegy. Follows with pulmonolog y. [id number] Nikos Higginbotham PA-C [facility] [address] [facility] [address] [place] [address] 04/25/2025 08:56:30 04/25/2025 09:59:49 Chronic idiopathic constipation 70918856 K59.04 -Start Lubiprosto ne twice daily. She may use Miralax as needed in addition to this.-Cont inue fiber tablets-We discussed possible benefit of pelvic floor therapy. She states she does not think she can make the appointmen ts due to transporta tion issues. Blood-tinged feces 60591 07573 55263 K92.1 -Colonosco py is scheduled. Treat hemorrhoid s per below. Hemorrhoids 55526219 K64 .9 -Start topical hydrocorti sone. Decrease in appetite 643 94275 R63.0 -Potential ly due to constipati on. EGD has been scheduled. Generalize d abdominal pain 443315432 R10.84 -We will schedule EGD and colonoscop y for further evaluation of her abdominal pain and rectal bleeding [id number] Kassandra Alex PA-C [facility] [address] [facility] [address] [place] [address] 05/10/2025 07:54:43 05/10/2025 08:47:30 Leukocytosis 812769327 D72.829 Patient with current smoking history. Patient [...] 0.99. Vitamin-D level normal at 64.2. Patient returns for evaluation on May 10, 2025. Discussed recent CBC. Labs on March 22, 2025 with white blood cell count 16.8. Hemoglobin 11.2. No evidence of iron deficiency , vitamin B12 or folic acid deficiency . C-reactive protein slightly elevated. Iron studies normal. Flow cytometry with no evidence of white blood cell count abnormalit ies. Circulatin g blast. No evidence of leukemia or lymphoma. JAK2 mutation testing negative. BCR-ABL testing negative. Would favor observatio n. Discussed likely white blood cell count elevation secondary to smoking. Mild elevation and predominan tly neutrophil s. Patient complains of bone pain in her lower extremitie s for the past 2 years. She has followed with orthopedic s and is receiving injections in her knees. Patient has fatigue and states she feels poorly. Patient is insisting on having a bone marrow biopsy for further evaluation of leukocytos is and anemia. Will order. She has had constipati on and decreased appetite. Stable weight. She had an EGD and colonosopy Anemia 651541802 D64.9 Labs performed February 27, 2025 with white blood cell count 12.5. Red blood cell count 3.72. Hemoglobin 12.6 and hematocrit 35.8. MCV 96.2.Mild normocytic anemia. Discussed recent CBC. Labs on March 22, 2025 with white blood cell count 16.8. Hemoglobin 11.2. No evidence of iron deficiency , vitamin B12 or folic acid deficiency . Cobalamin deficiency 190 830899 E53.8 Prior history of B12 deficiency .Labs on March 22, 2025 with no evidence of vitamin B12 or folic acid deficiency . Vitamin D deficiency 347 19978 E55.9 Prior history of vitamin-D deficiency . Vitamin-D level normal on February 27, 2025. Would recommend bone density testing if patient has not already had. Will order. Cigarette smoker 2250667 7 F17.210 Patient with current smoking history. Patient smokes about 1/2 pack per day. Patient started smoking at age 14. Patient with 30 pack-year history of smoking. Due to smoking history discussed with patient low-dose lung cancer screening CT scan.Queenie nt recently had low-dose lung cancer screening CT scan in early 2024. Centriacin ar emphysema 13776840 J43.2 Patient with history of COPD. Currently on Trelegy. Follows with pulmonolog y. Bone pain 04246548 M89.8 X9 Patient complains of bone pain in her lower extremitie s for the past 2 years. She has followed with orthopedic s and is receiving injections in her knees. Will order additional labs. [id number] Nikos Higginbotham PA-C [facility] of the [facility] [address] [place] [address] 05/15/2025 09:16:34 05/15/2025 10:10:46 Generalized abdominal pain 753482658 R10.84 -I suspect this is due to chronic constipati on. Bowel prep was fair to poor for colonoscop y. Will add a stool softener to her bowel regimen. I have instructed her to resume her fiber supplement . I have also recommende d pelvic floor therapy, which she will consider. Chronic id iopathic constipation 45620605 K59.04 -Continue Lubiprosto ne twice daily. She may use Miralax as needed in addition to this.-Resu me fiber tablets-St art Docusate once daily.-We discussed possible benefit of pelvic floor therapy. She will consider this. Blood-tinged feces 12258 19870 95401 K92.1 -Likely benign outlet bleeding. She endorses hemorrhoid s currently. Rx for topical hydrocorti sone was recently provided. Hemorrhoids 75083043 K64 .9 Decrease in appetite 643 07976 R63.0 -I will treat her gastritis and monitor Erosive gastritis 986525 9269 544938 K29.60 -Start Pantoprazo le 40 mg p.o. once daily. Health Concerns Section Related Observation LastModified by Organization Earl ls LastModified Time None Recorded Concern Status LastModified by Organization Details LastModified Time None Recorded Advance Directives Directive None Recorded Payers Insurance Date Sequence Insurance Name Policy Number Policy Roberts Covered Member ID Roberts Member ID Guarantor Name 05/15/2025 1 [employer] (PPO) [id number] Efra Beyer [id number] Bhavana Beyer 05/15/2025 1 [facility] (PPO) [id number] Bhavana Beyer [id number] Bhavana Beyer Notes Date Note Type [...] pathology. Encouraged smoking cessation. Pravin Sanchez MD [address] [facility], [place], [address], [facility] - [facility] - [place] & [place] 03/22/2025 10:13:29 04/25/2025 text/html Ms. Beyer is [...] unable to schedule this. Nikos Higginbotham PA-C [address], [place], [address], [facility] [place] [facility] & [place] 04/25/2025 10:14:57 05/10/2025 text/html 69 yo F presents for evaluation of leukocytosis. Patient recently seen by primary care provider. Patient with current smoking history. Patient smokes about 1/2 pack per day. Patient started smoking at age 14. Patient with 30 pack-year history of smoking. Patient recently had low-dose lung cancer screening CT scan in early 2024. Labs performed February 27, 2025 with white [...] 0.99. Vitamin-D level normal at 64.2. Patient returns for evaluation on May 10, 2025. Discussed recent CBC. Labs on March 22, 2025 with white blood cell count 16.8. Hemoglobin 11.2. No evidence of iron deficiency, vitamin B12 or folic acid deficiency. C-reactive protein slightly elevated. Iron studies normal. Flow cytometry with no evidence of white blood cell count abnormalities. Circulating blast. No evidence of leukemia or lymphoma. JAK2 mutation testing negative. BCR-ABL testing negative. Would favor observation. Discussed likely white blood cell count elevation secondary to smoking. Mild elevation and predominantly neutrophils. Patient complains of bone pain in her lower extremities for the past 2 years. She has followed with orthopedics and is receiving injections in her knees. Patient has fatigue and states she feels poorly. Patient is insisting on having a bone marrow biopsy for further evaluation of leukocytosis and anemia. Will order. She has had constipation and decreased appetite. Stable weight. She had an EGD and colonosopy Kassandra Alex PA-C [address], [place], [address], [facility] [place] [facility] & [place] 05/10/2025 09:14:52 05/15/2025 text/html PREVIOUS ( 5): Ms. Beyer is a very pleasant 69-year-old [...] so she was unable to schedule this. CURRENT (05/15/25): Ms. Beyer returns to the office today for procedure follow-up. She underwent EGD and colonoscopy recently in evaluation of abdominal pain, chronic constipation, and hematochezia. Erosive gastritis was noted on EGD. Pathology showed mild chronic gastritis. H. pylori was negative. Colonoscopy with poor prep was noted with no abnormal findings reported. 3 year repeat was recommended. She continues to experience frequent abdominal discomfort and constipation. She notes mild improvements since starting the lubiprostone. She continues to complain of a very poor appetite, which is a chronic problem for her. She continues to have some bleeding with her hemorrhoids. She notes hard stools at times. Nikos Higginbotham PA-C [address], [place], [address], [place] - [facility] - [place] & [place] 05/15/2025 10:56:17 OBGyn Episode No OBEpisode recorded.
--- OUTSIDE RECORDS SUMMARY | 2025-05-16 08:14 | XMS_ITS | Data Portability ---
Author Organization [facility], [facility] Address [address] [place] [address] Care Team Providers Care Recreational Vehicle Resort Manager Name Role Phone SHILOH DUNLAP Referring Provider [...] Much of this encounter is an electronic glass cutter/tra nslation of spoken language to printed [...] incontinence or myelopathy. Prior injection therapy includes GTIA around 9 years ago with good benefit. [...] and foraminal stenosis Lumbar flex ex 11/2024 [facility] Multiple levels of movement in the [...] legs, I will refer her back to [facility] for fusion evaluation. Lumbar flexion-extension x-ray was obtained at [facility] and reviewed today. External records were reviewed and discussed as above, including imaging, clinical notes, and relevant labs. Much of this encounter is an electronic glass cutter/tra nslation of spoken language to printed [...] nasal - additional dx: Z22.322 2023 024 [email or web address] [facility], [facility], [address] [place] [address], [address], 01/07/202 5 15:32:37 HbA1c (hemoglobi n A1c), blood - additional dx: 250.00 2023 024 [email or web address] [facility], [facility], [address] [place] [address], [address], 5 15:32:32 Referral orthopedic spine surgeon referral - has been evaluated in past, new unstable spondy found on flex/ex, worsening leg pain, minimal benefit from TFESI. Eval for fusion. 2024 025 [email or web address] Nuvia lynn MD, [address] [place], [address], 5 15:13:52 Procedures remote therapeuti c monitoring [...] TFESI John L5-S1 with no sed in [place] with Dr. Garcia LUKE 2023 024 [email or web address] Not available 4 13:43:03 Surgeries destructio n of intraosseo us basiverteb ral nerve, including imaging guidance, lumbar/sac rum (SURG) 2023 025 [email or web address] [facility], [address], [address], [place], [address], 5 16:19:45 Imaging XR, lumbosacra l spine, 4 or more view - AP/LAT/EXT /FLEX 2023 024 [email or web address], [address], [address], [place], [address], 15:29:29 Medication Orders Hibiclens 4 % topical liquid 2023 024 [facility], [address] [place] [address] [place], [id number], 17:32:40 Patient TargetsNo targets recorded. Patient Instructions Encounter Date Encounter Id Patient Instructions Last Modified By Organization Details Last Modified Time 08/26/2024 [id number] behavioral healt h screen* [email or web address] Not available 08/29/2024 10:41:36 back stretches: exercises [...] view No observ ation record ed. [email or web address] [facility] (Qshmnqdhnk) [address], [place], [address], 08/26/2024 17:10:54 08/29/2010/28/2023 MRI, lumba r spine , w/o contr ast No observ ation record ed. [email or web address] Not Available 2023 15:41:20 Result Notes None recorded. Problems Name Problem SNOMED Code Status Onset Date Resolution Date Notes Provider Name and Address Organization Details Recorded Time Lumbar radiculopathy 172244000 Active 2023 NINI Delgado - [facility] 4 09:02:58 Lumbar spondylosis 860923263 Active 2023 NINI Delgado - [facility] 4 09:02:58 Chronic pain 59264244 Active 2023 NINI Delgado - [facility] 4 09:02:58 Overweight 224829527 Active 2023 NINI Delgado - [facility] 4 09:03:01 Chronic low back pain 945485559 Active 2023 NINI Delgado - [facility] 4 10:09:18 Problem Notes None recorded. Procedures Surgical History Date Name Laterality Status Provider Name and Address Organization Details Recorded Time 09/20/20 24 Lumbar Transforaminal Epidural Steroid Injection (1 Level Bilateral): completed Farhana Bradford NINI - [facility] 09/20/2024 09:51:58 procedure on gallbladder completed Farhana Bradford [facility] - [facility] 08/26/2024 10:19:17 Imaging Results None recorded. Procedure Notes None recorded. Medical Equipment None Reported. Allergies Allergen ID Allergen Name Allergen Category Reaction Reaction Severity Criticality Documentation Date Start Date Code Code System Note Provider Name and Address Organization Details Recorded Time 226972 tramadol medicatio n Not available Not available Not available 08/26/2024 55445 RxNorm NINI Delgado - [facility] 4 09:08:40 326833 Levaquin medicatio n Not available Not available Not available 08/26/2024 90959 2 RxNorm NINI Delgado - [facility] 4 09:08:52 443827 Biaxin medicatio n Not available Not available Not available 08/26/202471733 9 RxNorm NINI Delgado - [facility] 4 09:09:04 Medications Name Sig Start Date [...] Updated DateTime 5 165.1 cm 28.5 kg/m2 65120.3 g 97 % 97 % 75 /min 131/80 mm[Hg] Yara Richards [facility] 5 11:13:54 Date Recorded Body height Body mass index (BMI) Body weight Oxygen saturation Oxygen saturation in Arterial blood by Pulse oximetry Heart rate Systolic And Diastolic Provider Name and Address Organization Details Last Updated DateTime 4 165.1 cm 28.3 kg/m2 26032.7 g 95 % 95 % 62 /min 120/71 mm[Hg] Luisa Vivas [facility] 4 09:08:33 Social History Question Answer Notes LastModified by Tivraizat ion Details LastModified Time Tobacco Smoking Status Current Every Day Smoker Farhana Darryl lundberg [facility] 08/26/2024 10:18:30 Do You Have An Advance [...] Do You Have A Medical Power Of Anatomical Embalmer? No Information not available 08/26/2024 What Was [...] N Acid Reflux (GERD) N Cancer N Stroke N Skin Disorder N High Cholesterol Y Liver Disease N Rheumatoid Arthritis N Headaches N Fibromyalgia N Kidney Disease N Autoimmune Disease N Osteoarthritis N Neurosurgery N DVT N Peptic Ulcer Disease N Anemia N Heart Attack (RI) N Diabetes N Cardiomyopathy N Bleeding Disorder [...] SNOMED-CT Code Diagnosis ICD10 Code Diagnosis Note [id number] BAYRON GARCIA MD [facility] [address] [place] [address] 08/26/2024 08:31:18 08/29/2024 09:09:04 Lumbar radiculopathy 773492971 M54.16 Chronic pain 21090311 G8 9.29 Chronic low back pain 27 6673333 M54.51 [id number] BAYRON GARCIA MD [facility] [address] [place] [address] 09/20/2024 08:08:04 09/20/2024 09:49:16 Lumbar radiculopathy 131871871 M54.16 [id number] BAYRON GARCIA MD [facility] [address] [place] [address] 12/16/2024 10:38:46 12/16/2024 14:42:47 Chronic pain 01941384 G89.29 Lumbar radiculopathy 128 572632 M54.16 Health Concerns Section Related Observation LastModified by Organization Detai ls LastModified Time None Recorded Concern Status LastModified by Organization Details LastModified Time None Recorded Advance Directives Directive N: Payers Insurance Date Sequence Insurance Name Policy Number Policy Roberts Covered Member ID Roberts Member ID Guarantor Name 12/16/2024 1 [place] ([facility]) [id number] Efra Beyer [id number] Bhavana Beyer Notes Date Note Type [...] independently.; Able to bathe/groom without assistance.;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 Prior Imaging:MRI ([facility] - 10/28/23); 10/28/2023 MRI of Lumbar spine [facility] Lumbar Surgery:none Interventional Treatment History:lumbar ESIs: no relief Physical Therapy:Facility: ([place] [address]); PT discontinued by therapist/physician; complete 6weeks; dates: (05/11/2024 to 07/22/2024); response to therapy: no improvement in pain/symptoms Medications History:NSAIDs: (Ibuprofen 800 mg - not effective); Muscle relaxants: (Flexeril) Adverse Reactions:No nausea; No vomiting; No constipation; No itching Other Conservative Treatments:heat: effective Prior Pain Management:yes: ([facility]) Oswestry Disability Index (JIMENA)Score/Date Completed: (52 08/26/24) For Female Patients:Are you ? No New patient referred by for Low back pain. 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 Prior Imaging:MRI ([facility] - 10/28/23); 10/28/2023 MRI of Lumbar spine [facility] Lumbar Surgery:none Interventional Treatment History:lumbar ESIs: no relief Physical Therapy:Facility: ([place] [address]); PT discontinued by therapist/physician; complete 6weeks; dates: (05/11/2024 to 07/22/2024); response to therapy: no improvement in pain/symptoms Medications History:NSAIDs: (Ibuprofen 800 mg - not effective); Muscle relaxants: (Flexeril) Adverse Reactions:No nausea; No vomiting; No constipation; No itching Other Conservative Treatments:heat: effective Prior Pain Management:yes: ([facility]) Oswestry Disability Index (JIMENA)Score/Date Completed: (52 08/26/24) For Female Patients:Are you ? No BAYRON GARCIA MD [address] [place] [address], [place], [address], [facility] 12/16/2024 13:43:16 OBGyn Episode No OBEpisode recorded.
--- OUTSIDE RECORDS SUMMARY | 2025-05-16 08:14 | XMS_ITS | Clinical Summary ---
Author Organization Healthcare Address [address] [place] [address] Care Team Providers Care Facility Maintenance Technician Name Role Phone Sepideh Talbot AAYUSH Primary Care Provider [phone] Medications Fluticasone-Umec lidin-Vilant (Trelegy Ellipta) 100-62.5-25 MCG/ACT [...] 2005 [facility]Y-Zoster Vaccines (1 of 2) 2005 [id number] Vaccine ( season) 2024 11/15/2021, 02/06/2021, 01/02/2021 [facility]-Influenza Vaccine (#1) 07/03/202509/23, 11/15/2021, 08/07/2020 [facility]Y-RSV Vaccine: 60+ Years o [...] patient's age to complete this topic Insurance [facility] [place] [address] Care Teams Facility Maintenance Technician Relationship Specialty Start Date End Date TalbotSepideh, ENVIRONMENTAL RESTORATION PLANNER [address] [facility] [address] [place] [address] PCP - General 06/01/23
--- OUTSIDE RECORDS SUMMARY | 2025-05-16 08:14 | XMS_ITS | Clinical Summary ---
Author Organization [employer] ([place], [place], [place], [place]) Address [address] [place] [address] Care Team Providers Care Hogshead Hooper Name Role Phone Analilia Mayer PA-C Primary Care Provider [phone] Allergies Active Allergy Reactions Criticality Noted Date [...] exists Falls Risk Screening 11/02/2024 Influenza Vaccine (#1) 2025 , 09/23/2022, 08/07/2020 Respiratory Syncytial Virus (RSV) Adult or (1 - 1-dose 75+ series) 2030 Pneumococcal 50+ years Completed 09/23/2022, 2020 Insurance BLUE CROSS/BLUE SHIELD Care Teams Hogshead Hooper Relationship Specialty Start Date End Date Analilia Mayer PA-C [address] [place] [address] PCP - General Physician Power Transformer Repairer 06/10/24
--- OUTSIDE RECORDS SUMMARY | 2025-05-16 08:14 | XMS_ITS ---
Laboratory report Created on: May 13, 2025 LETY DAVENPORT : 1955 Sex: Female Author Organization Unknown PROBLEMS Problems List Code Description RESULTS Laboratory Orders Date Order Code Test 2025-05-10 262639 PROTEIN ELECTRO. ,S Laboratory Results Date LOINC Test Value Unit Reference Range Interpre tation 2025-05-10 2885-2 PROTEIN, TOTAL 6.4 G/DL 6.0-8.5 2025-05-10 2862-1 ALBUMIN 3.7 G/DL 2.9-4.4 2025-05-10 2865-4 SIFPT-2-EYYMWWHU .3 G/DL 0.0-0.4 2025-05-10 2868-8 WLQVR-0-XTCWVWOB .9 G/DL 0.4-1.0 2025-05-10 2871-2 BETA GLOBULIN 1 G/DL 0.7-1.3 2025-05-10 2874-6 GAMMA GLOBULIN .5 G/DL 0.4-1.8 2025-05-10 77394-0 M-SPIKE NOB G/DL NOT OBSERVED 2025-05-10 47811-4 GLOBULIN, TOTAL 2.7 G/DL 2.2-3.9 2025-05-10 1759-0 A/G RATIO 1.4 0.7-1.7 2025-05-10 40377-7 PDF IMAGE
--- OUTSIDE RECORDS SUMMARY | 2025-05-16 08:14 | XMS_ITS | Continuity of Care Document ---
Author Organization [place] - [facility] & [place], [facility] Address [address] [address] Care Team Providers Care Chinese Medicine Practitioner Name Role Phone JOVANNA CARRASCOANNIE Primary Care Provider Assessment Encounter Date Assessment Date Assessment LastModified by Organization Details LastModified Time 05/15/2025 05/15/2025 69-year-old female with generalized abdominal pain, poor appetite, rectal bleeding, and significant constipation. EGD and colonoscopy were performed 05/04/25 with findings c/w erosive gastritis with otherwise unremarkable findings. Path c/w mild chronic gastritis, negative for H. pylori. [email or web address] Not available 05/15/2025 10:53:24 Plan of Treatment Reminders Order Date Submit Date Provider Last Modified By Organization Details Last Modified Time Details Appointments FOLLOW UP 15 2024 09:15A M Pravin Sanchez MD Not available Not available Not available Establish ed Visit 15 min 2024 10:00A M Nikos Higginbotham PA-C Not available Not available Not available Lab None recorded. Referral None recorded. Procedures None recorded. Surgeries None recorded. Imaging None recorded. Medication Orders docusate sodium 100 mg capsule 2024 025 [facility], [address], [address], 05/15/2025 10:07:51 pantopraz ole 40 mg tablet,de layed release 2024 025 [facility], [address], [address], 05/15/2025 10:04:54 Patient TargetsNo targets recorded. Patient InstructionsNo instructions recorded. Reason for Referral None Reported. Problems Name Problem SNOMED Code Status Onset Date Resolution Date Notes Provider Name and Address Organization Details Recorded Time Chronic idiopathic constipati on 81302446 Active [address], [facility] [address] , [facility] - [facility] & [place] 5 09:32:05 Blood-ting ed feces 3546766872488 02 [facility] [address] , [facility] & [place] 5 09:32:10 Hemorrhoid s 11016320 [facility] [address] , [facility] & [place] 5 09:32:18 Decrease in appetite 45895303 Active [facility] [address] , [facility] & [place] 5 09:34:40 Generalize d abdominal pain 022943349 [facility] [address] , [facility] & [place] 5 09:35:09 Erosive gastritis 4408256589667 100 Active [facility] [address] , [facility] & [place] 10:01:39 Problem Notes None recorded. Procedures Surgical History Date Name Laterality Status Provider Name and Address Organization Details Recorded Time 05/10/20 Venipuncture completed [address], [facility] [address], [place] - [facility] - [place] & [place] 04/26/2025 13:50:28 05/04/20 25 Date of Last Colonoscopy completed Char TERRAZAS - [facility] - [place] & [place] 05/10/2025 08:26:45 04/06/20 25 Most Recent Bone Density completed Char TERRAZAS - [facility] - [place] & [place] 05/10/2025 08:26:45 03/22/20 25 Venipuncture completed Danna TERRAZAS - [facility] - [place] & [place] 03/22/2025 09:33:48 01/22/20 25 completed Char Bejaranoer [facility] - [facility] - [place] & [place] 05/10/2025 08:26:45 11/02/19 25 Colonoscopy completed Char TERRAZAS - [facility] - [place] & [place] 05/10/2025 08:26:45 11/02/19 24 Cholecystectomy completed Char Bejaranoer [facility] - [facility] - [place] & [place] 05/10/2025 08:26:45 total hysterectomy completed Karlee TERRAZAS - [facility] & [place] 03/22/2025 09:02:54 cholecystectomy completed Char TERRAZAS - [facility] - [place] & [place] 03/22/2025 09:03:05 colonoscopy completed Char Bejaranoer N[facility] - [facility] - [place] & [place] 03/22/2025 09:03:38 Imaging Results None recorded. Procedure Notes None recorded. Medical Equipment None Reported. Allergies Allergen ID Allergen Name Allergen Category Reaction Reaction Severity Criticality Documentation Date Start Date Code Code System Note Provider Name and Address Organization Details Recorded Time 762323 tramadol medicatio n Not available [facility] 03/22/2025 48393 RxNorm Char Bejaranoyves [place], [place] - [facility] & [place] 08:54:39 403489 Bactrim medicatio n Not available Not [facility] 03/22/2025 37562 9 RxNorm Char Tay null, [place] - [facility] - [place] & [place] 08:54:57 125389 levofloxa katy medicatio n Not available Not available [facility] 03/22/2025 29919 RxNorm Char Cross [facility], [place] - [facility] - [place] & [place] 5 08:57:05 Medications Name Sig Start Date [...] Organization Details Last Updated DateTime 165.1 cm 28.4 kg/m2 89354.2 2 g 98.1 [degF] 95 % 95 % 71 /min 137/75 mm[Hg] Ute Brooks [facility] & [place] 09:32:45 Social History Question Answer Notes LastModified by Organizat ion Details LastModified Time Tobacco Smoking Status Current Every Day Smoker Char Cross [facility], [facility] & [place] 03/22/2025 09:02:39 What Is Your Level Of Caffeine Consumption? Occasional [email or web address] Information not available 03/22/2025 What Was The Date Of Your Most Recent Tobacco Screening? 05/07/2025 [email or web address] Information not available 05/10/2025 At What Age Did You Start Smoking Tobacco? 15 [email or web address] Information not available 03/22/2025 Are You Passively Exposed To Smoke? No Information not available 05/10/2025 How Much Tobacco Do You Smoke? 0.5 PPD [email or web address] Information not available 03/22/2025 Has Tobacco Cessation Counseling Been Provided? No [email or web address] Information not available 03/22/2025 How Many Years Have You Smoked Tobacco? 25 [email or web address] Information not available 05/10/2025 Sex: Unknown Functional Status Question Answer Note LastModified by Organizat ion Details LastModified Time Do you use any illicit or recreational drugs? No [email or web address] Information not available 03/22/2025 Do you or have you ever used any other forms of tobacco or nicotine? No [email or web address] Information not available 03/22/2025 What is your level of alcohol consumption? None [email or web address] Information not available 03/22/2025 Do you or have you ever used smokeless tobacco? Never used smokeless tobacco Information not available 05/10/2025 What is your exercise level? Occasional [email or web address] Information not available 05/10/2025 Mental Status None recorded. Family History Relationship Description Onset Age of this Age Resolved Age Notes LastModified by Organization Details LastModified Time Mother Malignant neoplasm of vertebral column [email or web address] bel Not available 05/15/2025 09:21:51 Mother Cerebrovascu lar accident Not available 09:00:38 Father Malignant neoplasm of prostate [email or web address] bel Not available 05/15/2025 09:21:51 Brother Malignant neoplasm of prostate mets to Bladde r [email or web address] bel Not available 05/15/2025 09:21:51 Sister Malignant neoplasm of lung [email or web address] bel Not available 05/15/2025 09:21:51 Sister Aneurysm [email or web address] bel Not available 05/15/2025 09:21:51 Paternal Uncle Myocardial infarction Not available 03/03 09:01:10 Medical History Condition Response Osteoporosis/Osteopenia Y Anemia Y Spine Problems Y Back Problems Y Obstructive Sleep Apnea Y Hypertension Y COPD Y GI Problems Y Gynecological History Statement/Question Response Current Control Method N/A Date of Last Colonoscopy 05/04/2025 01/21/2025 Most Recent Bone Density 04/06/2025 Sexually Active? N Obstetrics History GPAL:G 0 P 0 0 0 0 Immunizations Vaccine Type Date Status Note Provider Nam e and Address Organization Details Recorded Time Influenza, high-dose, quadrivalent, PF 5 completed Char [place], [place] - [facility] 03/22/2025 08:54:06 Influenza, high-dose, quadrivalent, PF 0 completed Char [place]undberg, [place] - [facility] & [place] 03/22/2025 08:54:06 COVID-19, mRNA, LNP-S, PF, 100 mcg/0.5mL dose or 50 mcg/0.25mL dose 2 completed Char [place]undberg, [place] - [facility] & [place] 03/22/2025 08:54:06 COVID-19, mRNA, LNP-S, PF, 100 mcg/0.5mL dose or 50 mcg/0.25mL dose 1 completed Char Cross null, [place] - [facility] - [place] & [place] 03/22/2025 08:54:06 COVID-19, mRNA, LNP-S, PF, 100 mcg/0.5mL dose or 50 mcg/0.25mL dose 1 completed Char Cross null, [place] - [facility] - [place] & [place] 03/22/2025 08:54:06 pneumococcal polysaccharide PPV23 2 completed Char Cross null, [place] [facility] [place] 03/22/2025 08:54:06 Pneumococcal conjugate PCV 13 1 completed Char Cross null, [place] [facility] [place] & [place] 03/22/2025 08:54:06 Influenza, high-dose, trivalent, PF 2 completed Char Tay null, [place] [facility] [place] 03/22/2025 08:54:06 Influenza, split virus, quadrivalent, PF 2 completed Char Cross null, [place] [facility] [place] & [place] 03/22/2025 08:54:06 Past Encounters Encounter ID Performer Location Encounter Start Date Encounter Closed Date Diagnosis/Indication Diagnosis SNOMED-CT Code Diagnosis ICD10 Code Diagnosis Note [id number] Nikos Higginbotham PA-C [facility] [address] [address] 04/25/2025 08:56:30 04/25/2025 09:59:49 Chronic idiopathic constipation 60283376 K59.04 -Start Lubiprosto ne twice daily. She may use Miralax as needed in addition to this.-Cont inue fiber tablets-We discussed possible benefit of pelvic floor therapy. She states she does not think she can make the appointmen ts due to transporta tion issues. Blood-tinged feces 94152 30338 61422 K92.1 -Colonosco py is scheduled. Treat hemorrhoid s per below. Hemorrhoids 44836014 K64 .9 -Start topical hydrocorti sone. Decrease in appetite 643 98738 R63.0 -Potential ly due to constipati on. EGD has been scheduled. Generalize d abdominal pain 103706748 R10.84 -We will schedule EGD and colonoscop y for further evaluation of her abdominal pain and rectal bleeding [id number] Kassandra Alex PA-C [facility] [address] [place] [address] 05/10/2025 07:54:43 05/10/2025 08:47:30 Leukocytosis 704512014 D72.829 Patient with current smoking history. Patient [...] She had an EGD and colonosopy Anemia 499835437 D64.9 Labs performed February 27, 2025 with white blood cell count 12.5. Red blood cell count 3.72. Hemoglobin 12.6 and hematocrit 35.8. MCV 96.2.Mild normocytic anemia. Discussed recent CBC. Labs on March 22, 2025 with white blood cell count 16.8. Hemoglobin 11.2. No evidence of iron deficiency , vitamin B12 or folic acid deficiency . Cobalamin deficiency 190 487612 E53.8 Prior history of B12 deficiency .Labs on March 22, 2025 with no evidence of vitamin B12 or folic acid deficiency . Vitamin D deficiency 347 05306 E55.9 Prior history of vitamin-D deficiency . Vitamin-D level normal on February 27, 2025. Would recommend bone density testing if patient has not already had. Will order. Cigarette smoker 9419690 7 F17.210 Patient with current smoking history. Patient smokes about 1/2 pack per day. Patient started smoking at age 14. Patient with 30 pack-year history of smoking. Due to smoking history discussed with patient low-dose lung cancer screening CT scan.Patigeoff nt recently had low-dose lung cancer screening CT scan in early 2024. Centriacin ar emphysema 51388306 J43.2 Patient with history of COPD. Currently on Trelegy. Follows with pulmonolog y. Bone pain 24478993 M89.8 X9 Patient complains of bone pain in her lower extremitie s for the past 2 years. She has followed with orthopedic s and is receiving injections in her knees. Will order additional labs. [id number] Nikos Higginbotham PA-C [facility] [address] [address] 05/15/2025 09:16:34 05/15/2025 10:10:46 Generalized abdominal pain 573328047 R10.84 -I suspect this is due to chronic constipati on. Bowel prep was fair to poor for colonoscop y. Will add a stool softener to her bowel regimen. I have instructed her to resume her fiber supplement . I have also recommende d pelvic floor therapy, which she will consider. Chronic id iopathic constipation 31247877 K59.04 -Continue Lubiprosto ne twice daily. She may use Miralax as needed in addition to this.-Resu me fiber tablets-St art Docusate once daily.-We discussed possible benefit of pelvic floor therapy. She will consider this. Blood-tinged feces 97255 91515 53114 K92.1 -Likely benign outlet bleeding. She endorses hemorrhoid s currently. Rx for topical hydrocorti sone was recently provided. Hemorrhoids 23062978 K64 .9 Decrease in appetite 643 54589 R63.0 -I will treat her gastritis and monitor Erosive gastritis 877675 8424 620202 K29.60 -Start Pantoprazo le 40 mg p.o. once daily. Health Concerns Section Related Observation LastModified by Organization Detai ls LastModified Time None Recorded Concern Status LastModified by Organization Details LastModified Time None Recorded Payers Encounter Date Sequence Insurance Name Policy Number Policy Roberts Covered Member ID Roberts Member ID Guarantor Name 05/15/2025 1 [employer] [employer] [id number] Bhavana Beyer [id number] Bhavana Beyer Notes Date Note Type Note Provider Name and Address Organization Details Recorded Time 05/15/2025 text/html PREVIOUS (04/25/25): Ms. Beyer is a very pleasant 69-year-old female who was referred by Shiloh Carrasco APRN for evaluation of abdominal pain, chronic [...] hard stools at times. Nikos Higginbotham PA-C [address], [place], [address], [facility] - [place] & [place] 05/15/2025 10:56:17 OBGyn Episode No OBEpisode recorded.
--- OUTSIDE RECORDS SUMMARY | 2025-05-16 08:14 | XMS_ITS ---
Laboratory report Created on: May 13, 2025 LETY DAVENPORT : 1955 Sex: Female Author Organization Unknown PROBLEMS Problems List Code Description RESULTS Laboratory Orders Date Order Code Test 2025-05-10 [id number] ANTINUCLEAR AB M ULTIPLEX RFX 9 Laboratory Results Date LOINC Test Value Unit Reference Range Interpre tation 2025-05-10 8061-4 RADHA DIRECT N NEGATIVE
--- OUTSIDE RECORDS SUMMARY | 2025-05-16 08:14 | XMS_ITS ---
Author Organization Unknown Medications Date Medication Dosage DosageUnit StartDate StopDate StopReason Active DoseQuantity DoseUnit Dispense DispenseUnit Refills NdcCode DrugCode PharmacyId IsPrescription MappedMedication Srcstatus Custom 04/28 00:00 :00 Albuterol Sulfate HFA 108 (90 Base) MCG/ACT Aerosol Solution 1 3 3 [id number] 287 P Taking 04/14 00:00 :00 Albuterol Sulfate HFA 108 (90 Base) MCG/ACT Aerosol Solution 1 3 3 [id number] 287 P Taking 02/27 00:00 :00 Albuterol Sulfate HFA 108 (90 Base) MCG/ACT Aerosol Solution 1 3 3 [id number] 287 P Taking 12/01 00:00 :00 Albuterol Sulfate HFA 108 (90 Base) MCG/ACT Aerosol Solution 1 3 3 [id number] 287 P Taking 11/18 00:00 :00 Albuterol Sulfate HFA 108 (90 Base) MCG/ACT Aerosol Solution 1 3 3 [id number] 287 P Refill 11/18 00:00 :00 Albuterol Sulfate HFA 108 (90 Base) MCG/ACT Aerosol Solution 1 3 0 [id number] 287 P Taking 09/20 00:00 :00 Albuterol Sulfate HFA 108 (90 Base) MCG/ACT Aerosol Solution 1 3 0 [id number] 287 P Refill 08/18 00:00 :00 Albuterol Sulfate HFA 108 (90 Base) MCG/ACT Aerosol Solution 1 1 3 [id number] 287 P Refill 08/18 00:00 :00 Albuterol Sulfate HFA 108 (90 Base) MCG/ACT Aerosol Solution 1 [id number] 287 Taking 04/28 00:00 :00 ALPRAZolam 0.5 MG Tablet 02/27/2025 00:00:00 1 60 Tablet 0 88822 0 P Taking 04/14 00:00 :00 ALPRAZolam 0.5 MG Tablet 02/27/2025 00:00:00 1 60 Tablet 0 49109 202 910 P Taking 02/27 00:00 :00 ALPRAZolam 0.5 MG Tablet 02/27/2025 00:00:00 1 60 Tablet 0 28242 202 910 P Start 04/28 00:00 :00 amLODIPine Besylate 5 MG Tablet 1 90 0 0048 0716 710 P Taking 04/14 00:00 :00 amLODIPine Besylate 5 MG Tablet 1 90 0 0048 0716 710 P Taking 03/24 00:00 :00 amLODIPine Besylate 5 MG Tablet 1 90 0 0048 0716 710 P Refill 02/27 00:00 :00 amLODIPine Besylate 10 MG Tablet 1 90 0 0048 0716 810 P Taking 12/01 00:00 :00 amLODIPine Besylate 10 MG Tablet 1 90 0 0048 0716 810 P Taking 11/18 00:00 :00 amLODIPine Besylate 10 MG Tablet 1 90 0 0048 0716 810 P Refill 11/18 00:00 :00 amLODIPine Besylate 10 MG Tablet 1 30 3 0048 0716 810 P Taking 08/22 00:00 :00 amLODIPine Besylate 10 MG Tablet 1 30 3 0048 0716 810 P Refill 08/18 00:00 :00 amLODIPine Besylate 10 MG Tablet 1 30 3 0048 0716 810 P Refill 08/18 00:00 :00 amLODIPine Besylate 10 MG Tablet 1 30 0048 0716 810 Taking 04/28 00:00 :00 Amoxicillin 875 MG Tablet 04/28/2025 00:00:00 1 20 Tablet 0 96191 226 401 P Start 04/28 00:00 :00 Atorvastati n Calcium 20 MG Tablet 03/27/2021 00:00:00 0 90 Tablet 3 51673 505 998 Not Taking 04/14 00:00 :00 Atorvastati n Calcium 20 MG Tablet 03/27/2021 00:00:00 0 90 Tablet 3 90808 505 998 Not Taking 02/27 00:00 :00 Atorvastati n Calcium 20 MG Tablet 03/27/2021 00:00:00 0 90 Tablet 3 15053 505 998 Not Taking 12/01 00:00 :00 Atorvastati n Calcium 20 MG Tablet 03/27/2021 00:00:00 0 90 Tablet 3 61012 505 998 Not Taking 11/18 00:00 :00 Atorvastati n Calcium 20 MG Tablet 03/27/2021 00:00:00 0 90 Tablet 3 01932 505 998 Not Taking 08/18 00:00 :00 Atorvastati n Calcium 20 MG Tablet 03/27/2021 00:00:00 0 90 Tablet 3 04231 505 998 Not Taking 04/28 00:00 :00 Bisoprolol Fumarate 5 MG Tablet 1 90 0 5281 7027 010 P Taking 04/14 00:00 :00 Bisoprolol Fumarate 5 MG Tablet 1 90 0 5281 7027 010 P Taking 02/27 00:00 :00 Bisoprolol Fumarate 5 MG Tablet 1 90 0 5281 7027 010 P Taking 12/01 00:00 :00 Bisoprolol Fumarate 5 MG Tablet 1 90 0 5281 7027 010 P Taking 11/18 00:00 :00 Bisoprolol Fumarate 5 MG Tablet 1 90 0 5281 7027 010 P Refill 11/18 00:00 :00 Bisoprolol Fumarate 5 MG Tablet 1 90 0 5281 7027 010 P Taking 09/20 00:00 :00 Bisoprolol Fumarate 5 MG Tablet 1 90 0 5281 7027 010 P Refill 08/22 00:00 :00 Bisoprolol Fumarate 5 MG Tablet 1 30 3 5281 7027 010 P Refill 08/18 00:00 :00 Bisoprolol Fumarate 5 MG Tablet 1 30 3 5281 7027 010 P Refill 08/18 00:00 :00 Bisoprolol Fumarate 5 MG Tablet 1 30 5281 7027 010 Taking 04/28 00:00 :00 Calcium Carbonate 600 MG Tablet 0 11 443574 082 Not Taking 04/14 00:00 :00 Calcium Carbonate 600 MG Tablet 0 11 411607 082 Not Taking 02/27 00:00 :00 Calcium Carbonate 600 MG Tablet 0 11 620121 082 Not Taking 12/01 00:00 :00 Calcium Carbonate 600 MG Tablet 0 11 468302 082 Not Taking 11/18 00:00 :00 Calcium Carbonate 600 MG Tablet 0 11 390730 082 Not Taking 08/18 00:00 :00 Calcium Carbonate 600 MG Tablet 0 11 162212 082 Not Taking 02/27 00:00 :00 Cholecalcif vishal 1.25 MG (74622 UT) Capsule 0 8 3 P Discontinu ed 12/01 00:00 :00 Cholecalcif vishal 1.25 MG (30412 UT) Capsule 1 8 3 P Taking 11/18 00:00 :00 Cholecalcif vishal 1.25 MG (22969 UT) Capsule 1 8 3 P Taking 08/22 00:00 :00 Cholecalcif vishal 1.25 MG (08631 UT) Capsule 1 8 3 P Refill 08/18 00:00 :00 Cholecalcif vishal 125 MCG (5000 UT) Capsule 0 Not Taking 04/28 00:00 :00 Ciprofloxac in HCl 500 MG Tablet 04/14/2025 00:00:00 0 20 Tablet 0 77352 992 801 P Not Taking 04/14 00:00 :00 Ciprofloxac in HCl 500 MG Tablet 04/14/2025 00:00:00 1 20 Tablet 0 31058 992 801 P Start 04/28 00:00 :00 Ciprofloxac in-dexAMETH asone 0.3-0.1 % Suspension 02/27/2025 00:00:00 0 1 3 3127738 8 667 P Not Taking 04/14 00:00 :00 Ciprofloxac in-dexAMETH asone 0.3-0.1 % Suspension 02/27/2025 00:00:00 1 1 3 7798404 8 667 P Taking 02/27 00:00 :00 Ciprofloxac in-dexAMETH asone 0.3-0.1 % Suspension 02/27/2025 00:00:00 1 1 3 2079578 8 667 P Start 04/28 00:00 :00 Citalopram Hydrobromid e 20 MG Tablet 0 30 6944505 7 201 Not Taking 04/14 00:00 :00 Citalopram Hydrobromid e 20 MG Tablet 0 30 5793738 7 201 Not Taking 02/27 00:00 :00 Citalopram Hydrobromid e 20 MG Tablet 0 30 0343224 7 201 Not Taking 12/01 00:00 :00 Citalopram Hydrobromid e 20 MG Tablet 0 30 4020503 7 201 Not Taking 11/18 00:00 :00 Citalopram Hydrobromid e 20 MG Tablet 0 30 5641741 7 201 Not Taking 08/18 00:00 :00 Citalopram Hydrobromid e 20 MG Tablet 0 30 1084157 7 201 Not Taking 12/01 00:00 :00 cloNIDine HCl 0.1 MG Tablet 0 90 0 857094 12 710 P Discontinu ed 11/18 00:00 :00 cloNIDine HCl 0.1 MG Tablet 1 90 0 317361 12 710 P Refill 11/18 00:00 :00 cloNIDine HCl 0.1 MG Tablet 1 30 3 655259 12 710 P Taking 08/18 00:00 :00 cloNIDine HCl 0.1 MG Tablet 1 30 3 485575 12 710 P Refill 08/18 00:00 :00 cloNIDine HCl 0.1 MG Tablet 1 30 877233 12 710 Taking 04/28 00:00 :00 Coenzyme Q10 100 MG Capsule 0 30 96352 193 807 Not Taking 04/14 00:00 :00 Coenzyme Q10 100 MG Capsule 0 30 47410 193 807 Not Taking 02/27 00:00 :00 Coenzyme Q10 100 MG Capsule 0 30 68255 193 807 Not Taking 12/01 00:00 :00 Coenzyme Q10 100 MG Capsule 0 30 74828 193 807 Not Taking 11/18 00:00 :00 Coenzyme Q10 100 MG Capsule 0 30 08041 193 807 Not Taking 08/18 00:00 :00 Coenzyme Q10 100 MG Capsule 0 30 54208 193 807 Not Taking 04/28 00:00 :00 Dexilant 60 MG Capsule Delayed Release 09/17/2020 00:00:00 0 90 1 8550552 7 530 P Not Taking 04/14 00:00 :00 Dexilant 60 MG Capsule Delayed Release 09/17/2020 00:00:00 0 90 1 5271728 7 530 P Not Taking 02/27 00:00 :00 Dexilant 60 MG Capsule Delayed Release 09/17/2020 00:00:00 0 90 1 3426758 7 530 P Not Taking 12/01 00:00 :00 Dexilant 60 MG Capsule Delayed Release 09/17/2020 00:00:00 0 90 1 7325716 7 530 P Not Taking 11/18 00:00 :00 Dexilant 60 MG Capsule Delayed Release 09/17/2020 00:00:00 0 90 1 7545797 7 530 P Not Taking 08/18 00:00 :00 Dexilant 60 MG Capsule Delayed Release 09/17/2020 00:00:00 0 90 1 9172336 7 530 P Not Taking 04/28 00:00 :00 Fluticasone Propionate 50 MCG/ACT Suspension 02/27/2025 00:00:00 0 1 5 4036701 7 099 P Not Taking 04/14 00:00 :00 Fluticasone Propionate 50 MCG/ACT Suspension 02/27/2025 00:00:00 1 1 5 3773921 7 099 P Taking 02/27 00:00 :00 Fluticasone Propionate 50 MCG/ACT Suspension 02/27/2025 00:00:00 1 1 5 6087283 7 099 P Start 04/28 00:00 :00 hydroCHLORO thiazide 25 mg Tablet 1 90 Tablet 3 98963159 810 Taking 04/14 00:00 :00 hydroCHLORO thiazide 25 mg Tablet 1 90 Tablet 3 36174499 810 Taking 03/14 00:00 :00 hydroCHLORO thiazide 25 mg Tablet 1 90 Tablet 3 57838648 810 Start 03/14 00:00 :00 hydroCHLORO thiazide 25 MG Tablet 0 30 Tablet 84993629 810 Stop 02/27 00:00 :00 hydroCHLORO thiazide 25 MG Tablet 1 30 Tablet 55978452 810 Taking 12/01 00:00 :00 hydroCHLORO thiazide 25 MG Tablet 1 30 Tablet 00757721 810 Taking 04/28 00:00 :00 Macrobid 100 MG Capsule 04/17/2025 00:00:00 0 14 Capsule 0 03259898 501 P Not Taking 04/17 00:00 :00 Macrobid 100 MG Capsule 04/17/2025 00:00:00 1 14 Capsule 0 61990476 501 P Start 04/28 00:00 :00 Olmesartan Medoxomil 20 MG Tablet 1 005 03566 632 Taking 04/14 00:00 :00 Olmesartan Medoxomil 20 MG Tablet 1 005 80168 632 Taking 02/27 00:00 :00 Olmesartan Medoxomil 20 MG Tablet 1 005 33063 632 Taking 12/01 00:00 :00 Olmesartan Medoxomil 20 MG Tablet 1 005 01933 632 Taking 12/01 00:00 :00 Olmesartan Medoxomil-H CTZ 20-12.5 MG Tablet 07/25/2020 00:00:00 0 90 0 8553339 4 930 P Discontinu ed 11/18 00:00 :00 Olmesartan Medoxomil-H CTZ 20-12.5 MG Tablet 07/25/2020 00:00:00 1 90 0 2036466 4 930 P Refill 11/18 00:00 :00 Olmesartan Medoxomil-H CTZ 20-12.5 MG Tablet 07/25/2020 00:00:00 1 90 Tablet 2 41555 014 930 P Taking 08/22 00:00 :00 Olmesartan Medoxomil-H CTZ 20-12.5 MG Tablet 07/25/2020 00:00:00 1 90 Tablet 2 41625 014 930 P Refill 08/18 00:00 :00 Olmesartan Medoxomil-H CTZ 20-12.5 MG Tablet 07/25/2020 00:00:00 1 90 Tablet 2 46586 014 930 P Refill 08/18 00:00 :00 Olmesartan Medoxomil-H CTZ 20-12.5 MG Tablet 07/25/2020 00:00:00 1 90 Tablet 2 17251 014 930 Taking 04/28 00:00 :00 Pantoprazol e Sodium 40 MG Tablet Delayed Release 01/17/2021 00:00:00 0 30 5 2253441 8 910 Not Taking 04/14 00:00 :00 Pantoprazol e Sodium 40 MG Tablet Delayed Release 01/17/2021 00:00:00 0 30 5 6071207 8 910 Not Taking 02/27 00:00 :00 Pantoprazol e Sodium 40 MG Tablet Delayed Release 01/17/2021 00:00:00 0 30 5 8357540 8 910 Not Taking 12/01 00:00 :00 Pantoprazol e Sodium 40 MG Tablet Delayed Release 01/17/2021 00:00:00 0 30 5 5787033 8 910 Not Taking 11/18 00:00 :00 Pantoprazol e Sodium 40 MG Tablet Delayed Release 01/17/2021 00:00:00 0 30 5 1593126 8 910 Not Taking 08/18 00:00 :00 Pantoprazol e Sodium 40 MG Tablet Delayed Release 01/17/2021 00:00:00 0 30 5 1869884 8 910 Not Taking 04/28 00:00 :00 Pravastatin Sodium 40 MG Tablet 1 90 2 827301 20 210 P Taking 04/14 00:00 :00 Pravastatin Sodium 40 MG Tablet 1 90 2 323890 20 210 P Taking 02/27 00:00 :00 Pravastatin Sodium 40 MG Tablet 1 90 2 993574 20 210 P Refill 02/27 00:00 :00 Pravastatin Sodium 40 MG Tablet 1 90 0 460298 20 210 P Taking 12/01 00:00 :00 Pravastatin Sodium 40 MG Tablet 1 90 0 709044 20 210 P Taking 11/18 00:00 :00 Pravastatin Sodium 40 MG Tablet 1 90 0 695646 20 210 P Refill 11/18 00:00 :00 Pravastatin Sodium 40 MG Tablet 1 30 3 141854 20 210 P Taking 08/22 00:00 :00 Pravastatin Sodium 40 MG Tablet 1 30 3 850406 20 210 P Refill 08/18 00:00 :00 Pravastatin Sodium 40 MG Tablet 1 30 3 359925 20 210 P Refill 08/18 00:00 :00 Pravastatin Sodium 40 MG Tablet 1 790997 20 210 Taking 04/28 00:00 :00 predniSONE 20 MG Tablet 02/27/2025 00:00:00 0 18 Tablet 0 91440 064 201 P Not Taking 04/28 00:00 :00 predniSONE 20 MG Tablet 08/18/2024 00:00:00 0 30 Tablet 0 62451 001 820 P Not Taking 04/14 00:00 :00 predniSONE 20 MG Tablet 02/27/2025 00:00:00 1 18 Tablet 0 47308 064 201 P Refill 04/14 00:00 :00 predniSONE 20 MG Tablet 02/27/2025 00:00:00 1 18 Tablet 0 29942 064 201 P Taking 04/14 00:00 :00 predniSONE 20 MG Tablet 08/18/2024 00:00:00 0 30 Tablet 0 72115 001 820 P Not Taking 02/27 00:00 :00 predniSONE 20 MG Tablet 02/27/2025 00:00:00 1 18 Tablet 0 84680 064 201 P Start 02/27 00:00 :00 predniSONE 20 MG Tablet 08/18/2024 00:00:00 0 30 Tablet 0 91352 001 820 P Not Taking 12/01 00:00 :00 predniSONE 20 MG Tablet 08/18/2024 00:00:00 0 30 Tablet 0 68784 001 820 P Not Taking 11/18 00:00 :00 predniSONE 20 MG Tablet 08/18/2024 00:00:00 1 30 Tablet 0 59387 001 820 P Refill 11/18 00:00 :00 predniSONE 20 MG Tablet 08/18/2024 00:00:00 0 30 Tablet 0 96923 001 820 P Not Taking 08/18 00:00 :00 predniSONE 20 MG Tablet 08/18/2024 00:00:00 1 30 Tablet 0 66158 001 820 P Start 04/28 00:00 :00 Pyridoxine HCl 500 MG Tablet 0 30 Not Kerwin champagne 04/14 00:00 :00 Pyridoxine HCl 500 MG Tablet 0 30 Lucia champagne 02/27 00:00 :00 Pyridoxine HCl 500 MG Tablet 0 30 Lucia champagne 12/01 00:00 :00 Pyridoxine HCl 500 MG Tablet 0 30 Not Kerwin champagne 11/18 00:00 :00 Pyridoxine HCl 500 MG Tablet 0 30 Not Kerwin champagne 08/18 00:00 :00 Pyridoxine HCl 500 MG Tablet 0 30 Not Kerwin champagne 04/28 00:00 :00 Sodium Chloride 1 GM Tablet 04/28/2025 00:00:00 1 30 3 8320282 6 001 P Start 04/28 00:00 :00 Trelegy Ellipta 200-62. 5-25 MCG/ACT Aerosol Powder Breath Activated 03/27/2021 00:00:00 1 3 3 4923229 9 310 P Taking 04/14 00:00 :00 Trelegy Ellipta 200-62. 5-25 MCG/ACT Aerosol Powder Breath Activated 03/27/2021 00:00:00 1 3 3 0773413 9 310 P Taking 02/27 00:00 :00 Trelegy Ellipta 200-62. 5-25 MCG/ACT Aerosol Powder Breath Activated 03/27/2021 00:00:00 1 3 3 1537831 9 310 P Taking 12/01 00:00 :00 Trelegy Ellipta 200-62. 5-25 MCG/ACT Aerosol Powder Breath Activated 03/27/2021 00:00:00 1 3 3 5211587 9 310 P Taking 11/18 00:00 :00 Trelegy Ellipta 200-62. 5-25 MCG/ACT Aerosol Powder Breath Activated 03/27/2021 00:00:00 1 3 3 9164182 9 310 P Refill 11/18 00:00 :00 Trelegy Ellipta 200-62. 5-25 MCG/ACT Aerosol Powder Breath Activated 03/27/2021 00:00:00 1 3 3 3203477 9 310 P Taking 08/22 00:00 :00 Trelegy Ellipta 200-62. 5-25 MCG/ACT Aerosol Powder Breath Activated 03/27/2021 00:00:00 1 3 3 0586921 9 310 P Refill 08/18 00:00 :00 Trelegy Ellipta 200-62. 5-25 MCG/ACT Aerosol Powder Breath Activated 03/27/2021 00:00:00 1 3 3 3044954 9 310 P Refill 08/18 00:00 :00 Trelegy Ellipta 200-62. 5-25 MCG/ACT Aerosol Powder Breath Activated 03/27/2021 00:00:00 1 3 3 2312608 9 310 P Taking 02/27 00:00 :00 Vitamin B-12 5000 MCG Tablet Disintegrat ing 0 30 Tablet 3 5993879 6 672 P Discontinu ed 12/01 00:00 :00 Vitamin B-12 5000 MCG Tablet Disintegrat ing 1 30 Tablet 3 7590609 6 672 P Taking 11/18 00:00 :00 Vitamin B-12 5000 MCG Tablet Disintegrat ing 1 30 Tablet 3 1315597 6 672 P Taking 08/18 00:00 :00 Vitamin B-12 5000 MCG Tablet Disintegrat ing 1 30 Tablet 3 7372936 6 672 P Refill 08/18 00:00 :00 Vitamin B-12 5000 MCG Tablet Disintegrat ing 1 93183670 672 Taking 02/27 00:00 :00 Zolpidem Tartrate 5 MG Tablet 11/18/2024 00:00:00 0 30 Tablet 0 95634 007 301 P Discontinu ed 12/01 00:00 :00 Zolpidem Tartrate 5 MG Tablet 11/18/2024 00:00:00 1 30 Tablet 0 56059 007 301 P Taking 11/18 00:00 :00 Zolpidem Tartrate 5 MG Tablet 11/18/2024 00:00:00 1 30 Tablet 0 37121 007 301 P Start
--- OUTSIDE RECORDS SUMMARY | 2025-05-16 08:14 | XMS_ITS | Continuity of Care Document ---
Author Organization [place] - [facility] [place], [facility] Address [address] [place] [address] Care Team Providers Care Heel Emery Buffer Name Role Phone SHILOH CARRASCO Primary Care Provider Assessment Encounter Date Assessment [...] one 24 mcg capsule 2024 025 [facility], [address], [address], 04/25/2025 09:41:00 hydrocort isone 2.5 % topical cream with perineal applicato r 2024 025 [facility], [address], [address], 04/25/2025 09:40:59 Patient TargetsNo targets recorded. Patient InstructionsNo instructions recorded. Reason for Referral None Reported. Problems Name Problem SNOMED Code Status Onset Date Resolution Date Notes Provider Name and Address Organization Details Recorded Time Chronic idiopathic constipati on 63836842 Active [address], [place], [address] , [place] [facility] [place] 5 09:32:05 Blood-ting ed feces 0433188073818 02 Active [address], [place], [address] , [place] [facility] & [place] 5 09:32:10 Hemorrhoid s 84182597 Active [address], [place], [address] , [place] [facility] [place] 5 09:32:18 Decrease in appetite 97287933 Active [address], [place], [address] , [place] [facility] & [place] 5 09:34:40 Generalize d abdominal pain 262706458 Active [address], [place], [address] , [place] [facility] [place] 5 09:35:09 Erosive gastritis 6032050505631 100 Active [address], [place], [place], [address] [place] [address] , [place] [facility] & [place] 5 10:01:39 Problem Notes None recorded. Procedures Surgical History Date Name Laterality Status Provider Name and Address Organization Details Recorded Time 05/10/20 Venipuncture completed [address], [place], [address], [place] [facility] [place] 04/26/2025 13:50:28 07/03/20 25 Date of Last Colonoscopy completed Char TERRAZAS - [facility] [place] & [place] 05/10/2025 08:26:45 04/06/20 25 Most Recent Bone Density completed Char Bejaranoer NINI - [facility] & [place] 05/10/2025 08:26:45 03/22/20 25 Venipuncture completed Danna TERRAZAS - [facility] & [place] 03/22/2025 09:33:48 01/22/20 25 completed Char TERRAZAS - [facility] [place] [facility] [place] 05/10/2025 08:26:45 11/02/19 25 Colonoscopy completed Char Bejaranoer NINI - [facility] [place] & [place] 05/10/2025 08:26:45 11/02/19 24 Cholecystectomy completed Char Bejaranoer NINI - [facility] & [place] 05/10/2025 08:26:45 total hysterectomy completed Karlee TERRAZAS - [facility] & [place] 03/22/2025 09:02:54 cholecystectomy completed Char TERRAZAS - [facility] & [place] 03/22/2025 09:03:05 colonoscopy completed Char Bejaranoer NINI - [facility] [place] & [place] 03/22/2025 09:03:38 Imaging Results None recorded. Procedure Notes None recorded. Medical Equipment None Reported. Allergies Allergen ID Allergen Name Allergen Category Reaction Reaction Severity Criticality Documentation Date Start Date Code Code System Note Provider Name and Address Organization Details Recorded Time 113174 tramadol medicatio n Not available Not available [facility] 03/22/2025 01900 RxNorm Char Cross null, [place] - [facility] & [place] 08:54:39 966906 Bactrim medicatio n Not available Not available [facility] 03/22/2025 09180 9 RxNorm Char Bejaranoer null, [place] - [facility] [place] [facility] [place] 08:54:57 939993 levofloxa katy medicatio n Not available Not available [facility] 03/22/2025 25509 RxNorm Char Tay null, [place] [facility] [place] [facility] [place] 5 08:57:05 Medications Name Sig Start Date [...] Last Updated DateTime 165.1 cm 28.7 kg/m2 92909.3 2 g 97.2 [degF] 95 % 95 % 72 /min 134/72 mm[Hg] Ute Brooks [facility] & [place] 09:08:45 Social History Question Answer Notes LastModified by [employer] Details LastModified Time Tobacco Smoking Status Current Every Day Smoker Char Cross [facility], [facility] & [place] 03/22/2025 09:02:39 What Is Your Level Of Caffeine Consumption? Occasional [email or web address] Information not available 03/22/2025 What Was The Date Of Your Most Recent Tobacco Screening? 05/07/2025 [email or web address] Information not available 05/10/2025 At What Age Did You Start Smoking Tobacco? 15 [email or web address] Information not available 03/22/2025 Are You Passively Exposed To Smoke? No [email or web address] Information not available 05/10/2025 How Much Tobacco Do You Smoke? 0.5 PPD [email or web address] Information not available 03/22/2025 Has Tobacco Cessation Counseling Been Provided? No [email or web address] Information not available 03/22/2025 How Many Years Have You Smoked Tobacco? 25 [email or web address] Information not available 05/10/2025 Sex: Unknown Functional Status Question Answer Note LastModified by [employer] Details LastModified Time Do you use any illicit or recreational drugs? No [email or web address] Information not available 03/22/2025 Do you or have you ever used any other forms of tobacco or nicotine? No [email or web address] Information not available 03/22/2025 What is your level of alcohol consumption? None [email or web address] Information not available 03/22/2025 Do you or have you ever used smokeless tobacco? Never used smokeless tobacco [email or web address] Information not available 05/10/2025 What is your exercise level? Occasional [email or web address] Information not available 05/10/2025 Mental Status None recorded. Family History Relationship Description Onset Age of this Age Resolved Age Notes LastModified by Organization Details LastModified Time Mother Malignant neoplasm of vertebral column [email or web address] bel Not available 05/15/2025 09:21:51 Mother Cerebrovascu lar accident [email or web address] Not available 09:00:38 Father Malignant neoplasm of prostate [email or web address] bel Not available 05/15/2025 09:21:51 Brother Malignant neoplasm of prostate mets to Bladde r [email or web address] bel Not available 05/15/2025 09:21:51 Sister Malignant neoplasm of lung [email or web address] bel Not available 05/15/2025 09:21:51 Sister Aneurysm [email or web address] bel Not available 05/15/2025 09:21:51 Paternal Uncle Myocardial infarction [email or web address] Not available 03/03 09:01:10 Medical History Condition Response COPD Y GI Problems Y Osteoporosis/Osteopenia Y Anemia Y Spine Problems Y Obstructive Sleep Apnea Y Back Problems Y Hypertension Y Gynecological History Statement/Question Response Current Control Method N/A Date of Last Colonoscopy 05/04/2025 01/21/2025 Most Recent Bone Density 04/06/2025 Sexually Active? N Obstetrics History GPAL:G 0 P 0 0 0 0 Immunizations Vaccine Type Date Status Note Provider Nam e and Address Organization Details Recorded Time Influenza, high-dose, quadrivalent, PF 5 completed Char lundberg [place] - [facility] & [place] 03/22/2025 08:54:06 Influenza, high-dose, quadrivalent, PF 0 completed Char lundberg [place] - [facility] [place] 03/22/2025 08:54:06 COVID-19, mRNA, LNP-S, PF, 100 mcg/0.5mL dose or 50 mcg/0.25mL dose 2 completed Char lundberg [place] - [facility] & [place] 03/22/2025 08:54:06 COVID-19, mRNA, LNP-S, PF, 100 mcg/0.5mL dose or 50 mcg/0.25mL dose 1 completed Char lundberg [place] - [facility] & [place] 03/22/2025 08:54:06 COVID-19, mRNA, LNP-S, PF, 100 mcg/0.5mL dose or 50 mcg/0.25mL dose 1 completed Char lundberg, [place] - [facility] [place] [facility] [place] 03/22/2025 08:54:06 pneumococcal polysaccharide PPV23 2 completed Char lundberg, [place] [facility] [place] [facility] [place] 03/22/2025 08:54:06 Pneumococcal conjugate PCV 13 1 completed Char lundberg, [place] [facility] [place] [facility] [place] 03/22/2025 08:54:06 Influenza, high-dose, trivalent, PF 2 completed Char lundberg, [facility] - [facility] [place] & [place] 03/22/2025 08:54:06 Influenza, split virus, quadrivalent, PF 2 completed Char lundberg, NINI - [facility] [place] & [place] 03/22/2025 08:54:06 Past Encounters Encounter ID Performer Location Encounter Start Date Encounter Closed Date Diagnosis/Indication Diagnosis SNOMED-CT Code Diagnosis ICD10 Code Diagnosis Note [id number] Nikos Higginbotham PA-C [facility] [address] [address] 04/25/2025 08:56:30 04/25/2025 09:59:49 Chronic idiopathic constipation 53155054 K59.04 -Start Lubiprosto ne twice daily. She may use Miralax as needed in addition to this.-Cont inue fiber tablets-We discussed possible benefit of pelvic floor therapy. She states she does not think she can make the appointmen ts due to transporta tion issues. Blood-tinged feces 38803 76424 69336 K92.1 -Colonosco py is scheduled. Treat hemorrhoid s per below. Hemorrhoids 49812702 K64 .9 -Start topical hydrocorti sone. Decrease in appetite 573 49731 R63.0 -Potential ly due to constipati on. EGD has been scheduled. Generalize d abdominal pain 314722568 R10.84 -We will schedule EGD and colonoscop [...] ID Guarantor Name 04/25/2025 1 [place] ([place]) [id number] Efra Beyer [id number] Bhavana Beyer Notes Date Note Type [...] unable to schedule this. Nikos Higginbotham PA-C [id number] , [place], [address], [place] [facility] [place] [facility] [place] 04/25/2025 10:14:57 OBGyn Episode No OBEpisode recorded.
--- OUTSIDE RECORDS SUMMARY | 2025-05-16 08:14 | XMS_ITS | Referral Summary ---
Author Organization [employer] ([place], [place], [place], [place]) Address [address] [place] [address] Care Team Providers Care Veneer Taper Name Role Phone Analilia Mayer PA-C Primary Care Provider [phone] Allergies Active Allergy Reactions Criticality Noted Date [...] Date Lamine rded Speak language other than Latvian at home Not on file 06/03/2024 Want [...] file Insurance BLUE CROSS/BLUE SHIELD Care Teams Veneer Taper Relationship Specialty Start Date End Date Analilia Mayer PA-C [address] [place] [address] PCP - General Physician Mold Dresser 06/10/24
--- OUTSIDE RECORDS SUMMARY | 2025-05-16 08:14 | XMS_ITS ---
Laboratory report Created on: May 13, 2025 LETY DAVENPORT : 1955 Sex: Female Author Organization Unknown PROBLEMS Problems List Code Description RESULTS Laboratory Orders Date Order Code Test 2025-05-10 [id number] RHEUMATOID FACTO R (RF) Laboratory Results Date LOINC Test Value Unit Reference Range Interpre tation 2025-05-10 [id number] RHEUMATOID FACTOR (RF) <10.0 IU/ML <14.0
--- OUTSIDE RECORDS SUMMARY | 2025-05-16 08:14 | XMS_ITS | Continuity of Care Document ---
Author Organization [facility] Address [address] [place] [address] Care Team Providers Care Weld Engineer Name Role Phone SHILOH DUNLAP Primary [...] antibodie s + rheumatoi d factor), quantitat mat, serum 2024 025 Not available 05/10/2025 08:55:54 protein, total + protein electroph oresis + immunofix ation, unspecifi ed specimen 2024 025 Not available 05/10/2025 08:55:54 Referral None recorded. Procedures None recorded. Surgeries None recorded. Imaging bone density 2024 025 [id number] [facility] (Centralized Scheduling), [address], [place], [address], 05/11/2025 08:59:38 Medication Orders None recorded. Patient TargetsNo targets recorded. Patient InstructionsNo instructions recorded. Reason for Referral None Reported. Problems Name Problem SNOMED Code Status Onset Date Resolution Date Notes Provider Name and Address Organization Details Recorded Time Chronic idiopathic constipati on 00301403 Active [address], [facility] [address] , [facility] & [place] 5 09:32:05 Blood-ting ed feces 4140296860242 02 Active [address], [place] [address] , [facility] & [place] 5 09:32:10 Hemorrhoid s 00154291 Active 2024 [address] [place] [address] , [facility] & [place] 5 09:32:18 Decrease in appetite 46974535 [facility] [address] , [facility] & [place] 5 09:34:40 Generalize d abdominal pain 148242959 Active 2024 [address] [place] [address] , [facility] & [place] 5 09:35:09 Erosive gastritis 7361366321913 100 Active 2024 [address] [place] [address] , [facility] & [place] 5 10:01:39 Problem Notes None recorded. Procedures Surgical History Date Name Laterality Status Provider Name and Address Organization Details Recorded Time 05/10/20 [facility] [address] [place] [facility] - [place] & [place] 04/26/2025 13:50:28 05/04/20 25 Date of Last Colonoscopy completed Char TERRAZAS - [facility] - [place] & [place] 05/10/2025 08:26:45 04/06/20 25 Most Recent Bone Density completed Char TERRAZAS - [facility] - [place] & [place] 05/10/2025 08:26:45 03/22/20 25 Venipuncture completed Danna TERRAZAS - [facility] - [place] & [place] 03/22/2025 09:33:48 01/22/20 25 completed Char TERRAZAS - [facility] - [place] & [place] 05/10/2025 08:26:45 11/02/19 25 Colonoscopy completed Char TERRAZAS - [facility] - [place] & [place] 05/10/2025 08:26:45 11/02/19 24 Cholecystectomy completed Char Bejaranoer [place] - [facility] - [place] & [place] 05/10/2025 08:26:45 total hysterectomy completed Karlee TERRAZAS - [facility] & [place] 03/22/2025 09:02:54 cholecystectomy completed Char TERRAZAS - [facility] - [place] & [place] 03/22/2025 09:03:05 colonoscopy completed Char TERRAZAS - [facility] - [place] & [place] 03/22/2025 09:03:38 Imaging Results None recorded. Procedure Notes None recorded. Medical Equipment None Reported. Allergies Allergen ID Allergen Name Allergen Category Reaction Reaction Severity Criticality Documentation Date Start Date Code Code System Note Provider Name and Address Organization Details Recorded Time 592593 tramadol medicatio n Not available Not available unabletoasse 03/22/2025 94266 RxNorm Char Cross null, [place] - [facility] & [place] 08:54:39 685843 Bactrim medicatio n Not available Not available [facility]toass[facility]y [facility] 03/22/2025 63703 9 RxNorm Char Bejaranoer null, [place] - [facility] - [place] & [place] 08:54:57 206151 levofloxa katy medicatio n Not available Not available [facility] 03/22/2025 51144 RxNorm Char Cross [facility], [place] - [place] - [place] & [place] 5 08:57:05 Medications Name Sig Start [...] Last Updated DateTime 165.1 cm 28.4 kg/m2 40811.5 8 g 97.8 [degF] 94 % 94 % 71 /min 146/67 mm[Hg] Char Tay [facility] & [place] 08:26:06 Social History Question Answer Notes LastModified by Organizat ion Details LastModified Time Tobacco Smoking Status Current Every Day Smoker Char Tay [facility] & [place] 03/22/2025 09:02:39 What Is Your Level Of Caffeine Consumption? Occasional [email or web address] Information not available 03/22/2025 What Was The Date Of Your Most Recent Tobacco Screening? 05/07/2025 Information not available 05/10/2025 At What Age Did You Start Smoking Tobacco? 15 [email or web address] Information not available 03/22/2025 Are You Passively Exposed To Smoke? No [email or web address] Information not available 05/10/2025 How Much Tobacco Do You Smoke? 0.5 PPD [email or web address] Information not available 03/22/2025 Has Tobacco Cessation Counseling Been Provided? No [email or web address] Information not available 03/22/2025 How Many Years Have You Smoked Tobacco? 25 [email or web address] Information not available 05/10/2025 Sex: Unknown Functional Status Question Answer Note LastModified by Organizat ion Details LastModified Time Do you use any illicit or recreational drugs? No [email or web address] Information not available 03/22/2025 Do you or have you ever used any other forms of tobacco or nicotine? No [email or web address] Information not available 03/22/2025 What is your level of alcohol consumption? None [email or web address] Information not available 03/22/2025 Do you or have you ever used smokeless tobacco? Never used smokeless tobacco [email or web address] Information not available 05/10/2025 What is your exercise level? Occasional [email or web address] Information not available 05/10/2025 Mental Status None recorded. Family History Relationship Description Onset Age of this Age Resolved Age Notes LastModified by Organization Details LastModified Time Mother Malignant neoplasm of vertebral column [email or web address] bel Not available 05/15/2025 09:21:51 Mother Cerebrovascu lar accident [email or web address] Not available 09:00:38 Father Malignant neoplasm of prostate [email or web address] bel Not available 05/15/2025 09:21:51 Brother Malignant neoplasm of prostate mets to Bladde r [email or web address] bel Not available 05/15/2025 09:21:51 Sister Malignant neoplasm of lung [email or web address] bel Not available 05/15/2025 09:21:51 Sister Aneurysm [email or web address] bel Not available 05/15/2025 09:21:51 Paternal Uncle Myocardial infarction [email or web address] Not available 03/03 09:01:10 Medical History Condition [...] 5 completed Char lundberg, [place] - [facility] 03/22/2025 08:54:06 Influenza, high-dose, quadrivalent, PF 0 completed Char [place]undberg, [place] - [facility] & [place] 03/22/2025 08:54:06 COVID-19, mRNA, LNP-S, PF, 100 mcg/0.5mL dose or 50 mcg/0.25mL dose 2 completed Char [place]undberg, [place] [facility] & [place] 03/22/2025 08:54:06 COVID-19, mRNA, LNP-S, PF, 100 mcg/0.5mL dose or 50 mcg/0.25mL dose 1 completed Char lundberg, [place] [facility] - [place] & [place] 03/22/2025 08:54:06 COVID-19, mRNA, LNP-S, PF, 100 mcg/0.5mL dose or 50 mcg/0.25mL dose 1 completed Char Cross null, [place] [facility] - [place] & [place] 03/22/2025 08:54:06 pneumococcal polysaccharide PPV23 2 completed Char Cross null, [place] [facility] [place] 03/22/2025 08:54:06 Pneumococcal conjugate PCV 13 1 completed Char Aty null, [place] [facility] [place] & [place] 03/22/2025 08:54:06 Influenza, high-dose, trivalent, PF 2 completed Char Tay null, [place] [facility] & [place] 03/22/2025 08:54:06 Influenza, split virus, quadrivalent, PF 2 completed Char Tay null, [place] [facility] [place] & [place] 03/22/2025 08:54:06 Past Encounters Encounter ID Performer Location Encounter Start Date Encounter Closed Date Diagnosis/Indication Diagnosis SNOMED-CT Code Diagnosis ICD10 Code Diagnosis Note [id number] Nikos Higginbotham PA-C [facility] [address] [address] 04/25/2025 08:56:30 04/25/2025 09:59:49 Chronic idiopathic constipation 52604199 K59.04 -Start Lubiprosto ne twice daily. She may use Miralax as needed in addition to this.-Cont inue fiber tablets-We discussed possible benefit of pelvic floor therapy. She states she does not think she can make the appointmen ts due to transporta tion issues. Blood-tinged feces 66923 38135 03749 K92.1 -Colonosco py is scheduled. Treat hemorrhoid s per below. Hemorrhoids 23009808 K64 .9 -Start topical hydrocorti sone. Decrease in appetite 643 74584 R63.0 -Potential ly due to constipati on. EGD has been scheduled. Generalize d abdominal pain 780543409 R10.84 -We will schedule EGD and colonoscop y for further evaluation of her abdominal pain and rectal bleeding [id number] Kassandra Alex PA-C [facility] [address] [place] [address] 05/10/2025 07:54:43 05/10/2025 08:47:30 Leukocytosis 175151791 D72.829 Patient with current smoking history. Patient [...] She had an EGD and colonosopy Anemia 979354958 D64.9 Labs performed February 27, 2025 with white blood cell count 12.5. Red blood cell count 3.72. Hemoglobin 12.6 and hematocrit 35.8. MCV 96.2.Mild normocytic anemia. Discussed recent CBC. Labs on March 22, 2025 with white blood cell count 16.8. Hemoglobin 11.2. No evidence of iron deficiency , vitamin B12 or folic acid deficiency . Cobalamin deficiency 190 156214 E53.8 Prior history of B12 deficiency .Labs on March 22, 2025 with no evidence of vitamin B12 or folic acid deficiency . Vitamin D deficiency 347 27361 E55.9 Prior history of vitamin-D deficiency . Vitamin-D level normal on February 27, 2025. Would recommend bone density testing if patient has not already had. Will order. Cigarette smoker 5879120 7 F17.210 Patient with current smoking history. Patient smokes about 1/2 pack per day. Patient started smoking at age 14. Patient with 30 pack-year history of smoking. Due to smoking history discussed with patient low-dose lung cancer screening CT scan.Fatumageoff nt recently had low-dose lung cancer screening CT scan in early 2024. Centriacin ar emphysema 73558615 J43.2 Patient with history of COPD. Currently on Trelegy. Follows with pulmonolog y. Bone pain 84552064 M89.8 X9 Patient complains of bone pain in her lower extremitie s for the past 2 years. She has followed with orthopedic s and is receiving injections in her knees. Will order additional labs. Health Concerns Section Related Observation LastModified by Organization Detai ls LastModified Time None Recorded Concern Status LastModified by Organization Details LastModified Time None Recorded Payers Encounter Date Sequence Insurance Name Policy Number Policy Roberts Covered Member ID Roberts Member ID Guarantor Name 05/10/2025 1 [employer] [id number] Efra Beyer [id number] Bhavana Beyer Notes Date Note Type Note Provider Name and Address Organization Details Recorded Time 05/10/2025 text/html 69 yo F presents for [...] an EGD and colonosopy Kassandra Alex PA-C [address], [place], [address], [facility] - [place] - [place] & [place] 05/10/2025 09:14:52 OBGyn Episode No OBEpisode recorded.
--- OUTSIDE RECORDS SUMMARY | 2025-05-16 08:14 | XMS_ITS | Continuity of Care Document ---
Author Organization [facility] Address [address] [place] [address] Care Team Providers Care Hospitality Specialist Name Role Phone SHILOH DUNLAP Primary Care Provider [phone] Assessment No assessment recorded. Plan of Treatment Reminders Order Date Submit Date Provider Last Modified By Organization Details Last Modified Time Details Appointments FOLLOW UP 15 2024 09:15A M Pravin Sanchez MD Not available Not available Not available Establish ed Visit 15 min 2024 10:00A Abdi Higginbotham PA-C Not available Not available Not available Lab CBC w/ auto diff 2024 025 ESTEFANI Not available 03/22/2025 09:49:33 CMP, serum or plasma 2024 025 ESTEFANI Not available 03/22/2025 11:40:58 ldh, serum or plasma 2024 025 ESTEFANI Not available 03/22/2025 11:41:00 C-reactiv e protein, quantitat mat, serum or plasma 2024 025 [email or web address] Not available 03/29/2025 12:56:46 bcr/alb1, quantitat mat PCR, blood or tissue 2024 025 [email or web address] Not available 03/29/2025 12:56:46 chronic leukemia panel, flow cytometry , unspecifi ed specimen 2024 025 [email or web address] Not available 03/30/2025 08:40:44 jak2 (V617F) mutation, blood/tis tony 2024 025 [email or web address] Not available 03/30/2025 08:40:44 carbon monoxide, QN, blood 2024 025 [email or web address] Not available 03/29/2025 12:56:47 iron + TIBC + ferritin, serum 2024 025 [email or web address] Not available 03/29/2025 12:56:47 iron saturatio n, serum 2024 025 [email or web address] Not available 03/29/2025 12:56:47 vitamin B12 + folate, serum or blood 2024 025 [email or web address] Not available 03/29/2025 12:56:47 mma (methylma lonic [...] Details Recorded Time Chronic idiopathic constipati on 76005372 Active [address], [place], [address] , [place] - [facility] & [place] 5 09:32:05 Blood-ting ed feces 2113104468850 02 Active [address], [place], [address] , [place] - [facility] & [place] 5 09:32:10 Hemorrhoid s 63256844 Active [address], [place], [address] , [place] - [facility] & [place] 5 09:32:18 Decrease in appetite 04835787 Active [address], [place], [address] , [place] - [facility] - [place] & [place] 09:34:40 Generalize d abdominal pain 579569136 Active 2024 Nikos Higginbotham PA-C [address], [place], [address] , [place] - [facility] - [place] & [place] 09:35:09 Erosive gastritis 6519951494732 100 Active 2024 Nikos Higginbotham PA-C [address], [place], [address] , [place] - [facility] - [place] & [place] 10:01:39 Problem Notes None recorded. Procedures Surgical History Date Name Laterality Status Provider Name and Address Organization Details Recorded Time 05/10/20 25 Venipuncture completed Kassandra Alex PA-C [address], [place], [address], [place] - [facility] - [place] & [place] 04/26/2025 13:50:28 05/04/20 25 Date of Last Colonoscopy completed Char Cross [place] - [facility] - [place] & [place] 05/10/2025 08:26:45 04/06/20 25 Most Recent Bone Density completed Char TERRAZAS - [facility] - [place] & [place] 05/10/2025 08:26:45 03/22/20 25 Venipuncture completed Danna Marks [place] - [facility] - [place] & [place] 03/22/2025 09:33:48 01/22/20 25 completed Char Cross [place] - [facility] - [place] & [place] 05/10/2025 08:26:45 11/02/19 25 Colonoscopy completed Char Cross [place] - [facility] - [place] & [place] 05/10/2025 08:26:45 11/02/19 24 Cholecystectomy completed Char TERRAZAS - [facility] - [place] & [place] 05/10/2025 08:26:45 total hysterectomy completed Karlee TERRAZAS - [facility] - [place] & [place] 03/22/2025 09:02:54 cholecystectomy completed Char RIVERA [facility] & [place] 03/22/2025 09:03:05 colonoscopy completed Char RIVERA [facility] & [place] 03/22/2025 09:03:38 Imaging Results None recorded. Procedure Notes None recorded. Medical Equipment None Reported. Allergies Allergen ID Allergen Name Allergen Category Reaction Reaction Severity Criticality Documentation Date Start Date Code Code System Note Provider Name and Address Organization Details Recorded Time 041866 tramadol medicatio n Not available Not available [facility] 03/22/2025 56570 RxNorm NINI Valentino [facility] & [place] 5 08:54:39 758678 Bactrim medicatio n Not available Not available [facility] 03/22/2025 86433 9 RxNorm NINI Valentino [facility] & [place] 5 08:54:57 891168 levofloxa katy medicatio n Not available Not available [facility] 03/22/2025 93943 RxNorm Char lundberg, NINI RIVERA [facility] & [place] 5 08:57:05 Medications Name [...] Last Updated DateTime 165.1 cm 28.8 kg/m2 94286.8 4 g 98.6 [degF] 94 % 94 % 68 /min 116/61 mm[Hg] Char RIVERA [facility] & [place] 08:53:50 Social History Question Answer Notes LastModified by Organizat ion Details LastModified Time Tobacco Smoking Status Current Every Day Smoker Char Cross [facility], NINI RIVERA [facility] & [place] 03/22/2025 09:02:39 What Is Your Level Of Caffeine Consumption? Occasional [email or web address] Information not available 03/22/2025 What Was The Date Of Your Most Recent Tobacco Screening? 05/07/2025 [email or web address] Information not available 05/10/2025 At What Age Did You Start Smoking Tobacco? 15 [email or web address] Information not available 03/22/2025 Are You Passively Exposed To Smoke? No [email or web address] Information not available 05/10/2025 How Much Tobacco Do You Smoke? 0.5 PPD [email or web address] Information not available 03/22/2025 Has Tobacco Cessation Counseling Been Provided? No Information not available 03/22/2025 How Many Years Have You Smoked Tobacco? 25 [email or web address] Information not available 05/10/2025 Sex: Unknown Functional Status Question Answer Note LastModified by Organizat ion Details LastModified Time Do you use any illicit or recreational drugs? No [email or web address] Information not available 03/22/2025 Do you or have you ever used any other forms of tobacco or nicotine? No [email or web address] Information not available 03/22/2025 What is your level of alcohol consumption? None [email or web address] Information not available 03/22/2025 Do you or have you ever used smokeless tobacco? Never used smokeless tobacco [email or web address] Information not available 05/10/2025 What is your exercise level? Occasional [email or web address] Information not available 05/10/2025 Mental Status None [...] available 05/15/2025 09:21:51 Paternal Uncle Myocardial infarction [email or web address] Not available 03/03 09:01:10 Medical History Condition [...] Influenza, high-dose, quadrivalent, PF 5 completed Char Tay null, [place] - [facility] & [place] 03/22/2025 08:54:06 Influenza, high-dose, quadrivalent, PF 0 completed Char Cross null, [place] - [facility] & [place] 03/22/2025 08:54:06 COVID-19, mRNA, LNP-S, PF, 100 mcg/0.5mL dose or 50 mcg/0.25mL dose 2 completed Charjoanna Cross null, NINI - [facility] - [place] & [place] 03/22/2025 08:54:06 COVID-19, mRNA, LNP-S, PF, 100 mcg/0.5mL dose or 50 mcg/0.25mL dose 1 completed Char Cross null, NINI - [facility] - [place] & [place] 03/22/2025 08:54:06 COVID-19, mRNA, LNP-S, PF, 100 mcg/0.5mL dose or 50 mcg/0.25mL dose 1 completed Char Cross toño, [place] - [facility] & [place] 03/22/2025 08:54:06 pneumococcal polysaccharide PPV23 2 completed Char Cross null, [place] - [facility] & [place] 03/22/2025 08:54:06 Pneumococcal conjugate PCV 13 1 completed Char Cross null, [place] - [facility] - [place] & [place] 03/22/2025 08:54:06 Influenza, high-dose, trivalent, PF 2 completed Char Cross null, [place] - [facility] & [place] 03/22/2025 08:54:06 Influenza, split virus, quadrivalent, PF 2 completed Char Cross null, [place] [facility] - [place] & [place] 03/22/2025 08:54:06 Past Encounters Encounter ID Performer Location Encounter Start Date Encounter Closed Date Diagnosis/Indication Diagnosis SNOMED-CT Code Diagnosis ICD10 Code Diagnosis Note [id number] Pravin Sanchez MD [facility] [address] [place] [address] 03/22/2025 08:30:33 03/22/2025 09:18:49 Leukocytosis 965074787 D72.829 Patient with current smoking history. Patient [...] out other pathology. Encouraged smoking cessation. Anemia 845363358 D64.9 Labs performed February 27, 2025 with white blood cell count 12.5. Red blood cell count 3.72. Hemoglobin 12.6 and hematocrit 35.8. MCV 96.2.Mild normocytic anemia. Will follow up iron studies. Will follow up B12 and folate. Cobalamin deficiency 190 014851 E53.8 Prior history of B12 deficiency . Will follow up repeat labs. Vitamin D deficiency 347 79933 E55.9 Prior history of vitamin-D deficiency . Vitamin-D level normal on February 27, 2025. Would recommend bone density testing if patient has not already had. Cigarette smoker 1199583 7 F17.210 Patient with current smoking history. Patient smokes about 1/2 pack per day. Patient started smoking at age 14. Patient with 30 pack-year history of smoking. Due to smoking history discussed with patient low-dose lung cancer screening CT scan.Queenie nt recently had low-dose lung cancer screening CT scan in early 2024. Centriacin ar emphysema 65302039 J43.2 Patient with history of COPD. Currently on Trelegy. Follows with pulmonolog y. Health Concerns Section Related Observation LastModified by Organization Detai ls LastModified Time None Recorded Concern Status LastModified by Organization Details LastModified Time None Recorded Payers Encounter Date Sequence Insurance Name Policy Number Policy Roberts Covered Member ID Roberts Member ID Guarantor Name 03/22/2025 1 [place] ([facility]) [id number] Efra Beyer [id number] Bhavana Beyer Notes Date Note Type [...] pathology. Encouraged smoking cessation. Pravin Sanchez MD [address], [place], [address], [place] - [facility] - [place] & [place] 03/22/2025 10:13:29 OBGyn Episode No OBEpisode recorded.
--- OUTSIDE RECORDS SUMMARY | 2025-05-16 08:15 | XMS_ITS | Data Portability ---
Author Organization [facility] Office Address [address] [address] Care Team Providers Care Accordion Tuner Name Role Phone CATHY CONNORS Referring Provider Assessment No assessment recorded. Plan of Treatment Reminders Order Date Submit Date Provider Last Modified By Organization Details Last Modified Time Details Appointments None recorde d. Lab drug screen, urine - Meds: NPE/nws 2023 024 ESTEFANI Ochoa MD [facility] ([facility]), [address] [place], [address], 4 09:49:45 CMP, serum or plasma 2023 024 shania [facility]a MD [facility] ([facility]), [address] [place], [address], 4 12:20:59 gamma-g lutamyl transfe rase (ggt), serum 2023 024 shania Ochoa MD [facility] ([facility]), [address] [place], [address], 4 12:20:59 CBC w/ auto diff 2023 024 shania Ochoa MD [facility] ([facility]), [address] [place], [place], , 4 12:20:59 venipun cture 2023 024 [email or web address] Ada Ochoa MD [facility] ([facility]), [address] [facility], [place], [address], 4 12:20:59 [facility] Med eval as part of multi mode pain managem ent 2023 024 [facility] [address], [address] [facility], [facility] [address], [place], [address], 4 08:55:[address]i st refer l - Diagnos e and treat 2023 024 [email or web address] In [facility] (Formerly [facility]), [address] [place] [address] , [place], [address], 4 09:09:45 Procedures epidura l steroid injecti on, lumbar interla minar (PROC) - Order # [id number] interla adriana [id number] [address], [facility] [place], [address], 4 10:32:49 epidura l steroid injecti on, lumbar transfo raminal (PROC) - Order #[id number] 1 right L34 and L45 with sedatio n [address], [address] [place], [address], 4 16:57:22 Surgeries None recorde d. Imaging None recorde d. Medication Orders None recorde d. Patient TargetsNo targets recorded. Patient Instructions Encounter Date Encounter Id Patient Instructions Last Modified By Organization Details Last Modified Time 04/27/[id number] Take medications EXACTLY as instructed. Call office for any problems DO NOT run out of medications and medications should last till next appointment. Notify office if going to be late or need to reschedule. [email or web address] Not available 04/27/2024 09:12:21 06/28/2024 [id number] back pain: care instructions [email or web address] Not available [...] Eugenie Ochoa MD [facility] ([facility]) [address] [place] [address], [address], 04/27/2024 11:23:17 04/27/20 24 04/27/2024 COMPR EHENS VICK METAB OLIC PANEL (CMP) glucose 91.0 mg/dL 74.0 - 110.0 Not Available Ada Ochoa MD [facility] ([facility]) [address] [place] [address], [address], 04/27/2024 11:23:17 04/27/20 24 04/27/2024 COMPR EHENS VICK METAB OLIC PANEL (CMP) BUN 11.0 mg/dL 4.0 - 25.0 Not Available Ada Ochoa MD [facility] ([facility]) [address] [place] [address], [address], 04/27/2024 11:23:17 04/27/20 24 04/27/2024 COMPR EHENS VICK METAB OLIC PANEL (CMP) creatinine 0.6 mg/dL 0.6 - 1.8 Not Available Ada Ochoa MD [facility] (In House Lab) [address] [place] [address], [address], 04/27/2024 11:23:17 04/27/20 24 04/27/2024 COMPR EHENS VICK METAB OLIC PANEL (CMP) sodium 134 mEq/L 133 - 145 Not Available Ada Ochoa MD [facility] (In House Lab) [address] [place] [address], [address], 04/27/2024 11:23:17 04/27/20 24 04/27/2024 COMPR EHENS VICK METAB OLIC PANEL (CMP) potassium 4.4 mEq/L 3.4 - 5.1 Not Available Ada Ochoa MD [facility] (In House [facility]) [address] [place] [address], [address], 04/27/2024 11:23:17 04/27/20 24 04/27/2024 COMPR EHENS VICK METAB OLIC PANEL (CMP) chloride 99.3 mEq/L 93.0 - 106.0 Not Available Ada Ochoa MD [facility] (In House [facility]) [address] [place] [address], [address], 04/27/2024 11:23:17 04/27/20 24 04/27/2024 COMPR EHENS VICK METAB OLIC PANEL (CMP) eco2 29.0 mEq/L 24.6 - 35.8 Not Available Ada Ochoa MD [facility] (In House [facility]) [address] [place] [address], [address], 04/27/2024 11:23:17 04/27/20 24 04/27/2024 COMPR EHENS VICK METAB OLIC PANEL (CMP) calcium 9.3 mg/dL 8.3 - 10.1 Not Available Ada Ochoa MD [facility] (In House [facility]) [address] [place] [address], [address], 04/27/2024 11:23:17 04/27/20 24 04/27/2024 COMPR EHENS VICK METAB OLIC PANEL (CMP) total protein 6.6 g/dL 6.0 - 8.5 Not Available Ada Ochoa MD [facility] (In House Lab) [address] [place] [address], [address], 04/27/2024 11:23:17 04/27/20 24 04/27/2024 COMPR EHENS VICK METAB OLIC PANEL (CMP) albumin 4.4 g/dL 3.3 - 4.9 Not Available Ada Ochoa MD [facility] (In House [facility]) [address] [place] [address], [address], 04/27/2024 11:23:17 04/27/20 24 04/27/2024 COMPR EHENS VICK METAB OLIC PANEL (CMP) ALP 72.0 U/L 46.0 - 116.0 Not Available Ada Ochoa MD [facility] (In House [facility]) [address] [place] [address], [address], 04/27/2024 11:23:17 04/27/20 24 04/27/2024 COMPR EHENS VICK METAB OLIC PANEL (CMP) AST 20 U/L 6 - 40 Not Available Ada Ochoa MD [facility] (In House [facility]) [address] [place] [address], [address], 04/27/2024 11:23:17 04/27/20 24 04/27/2024 COMPR EHENS VICK METAB OLIC PANEL (CMP) ALT 19 U/L 5 - 30 Not Available Ada Ochoa MD [facility] (In House [facility]) [address] [place] [address], [address], 04/27/2024 11:23:17 04/27/20 24 04/27/2024 COMPR EHENS VICK METAB OLIC PANEL (CMP) total bilirubin 0.74 mg/dL 0.00 - 1.00 Not Available Ada Ochoa MD [facility] (In House [facility]) [address] [place] [address], [address], 04/27/2024 11:23:17 04/27/20 24 04/27/2024 CBC WITH DIFFE RENTI AL/PL ATELE T WBC 12.3 10 4.0 - 11.0 high Not Available Ada Ochoa MD [facility] (In House [facility]) [address] [place] [address], [address], 04/27/2024 11:23:16 04/27/20 24 04/27/2024 CBC WITH DIFFE RENTI AL/PL ATELE T RBC 3.89 10 3.72 - 5.52 Not Available Ada Ochoa MD [facility] (In House [facility]) [address] [place] [address], [address], 04/27/2024 11:23:16 04/27/20 24 04/27/2024 CBC WITH DIFFE RENTI AL/PL ATELE T HGB 13.0 g/dL 11.0 - 16.6 Not Available Ada Ochoa MD [facility] (In House [facility]) [address] [place] [address], [address], 04/27/2024 11:23:16 04/27/20 24 04/27/2024 CBC WITH DIFFE RENTI AL/PL ATELE T HCT 38.1 % 34.0 - 49.0 Not Available Ada Ochoa MD [facility] (In House [facility]) [address] [place] [address], [address], 04/27/2024 11:23:16 04/27/20 24 04/27/2024 CBC WITH DIFFE RENTI AL/PL ATELE T MCV 97.9 fL 79.5 - 101.0 Not Available Ada Ochoa MD [facility] ([facility]) [address] [place] [address], [address], 04/27/2024 11:23:16 04/27/20 24 04/27/2024 CBC WITH DIFFE RENTI AL/PL ATELE T MCH 33.4 pg 26.2 - 34.0 Not Available Ada Ochoa MD [facility] ([facility]) [address] [place] [address], [address], 04/27/2024 11:23:16 04/27/20 24 04/27/2024 CBC WITH DIFFE RENTI AL/PL ATELE T MCHC 34.1 g/dL 31.3 - 36.0 Not Available Ada Ochoa MD [facility] (In House [facility]) [address] [place] [address], [address], 04/27/2024 11:23:16 04/27/20 24 04/27/2024 CBC WITH DIFFE RENTI AL/PL ATELE T plt 377 10 115 - 421 Not Available Ada Ochoa MD [facility] (In House [facility]) [address] [place] [address], [address], 04/27/2024 11:23:16 04/27/20 24 04/27/2024 CBC WITH DIFFE RENTI AL/PL ATELE T RDW-CV 12.9 % 11.3 - 16.1 Not Available Ada Ochoa MD [facility] (In House [facility]) [address] [place] [address], [address], 04/27/2024 11:23:16 04/27/20 24 04/27/2024 CBC WITH DIFFE RENTI AL/PL ATELE T neut# 8.34 10 0.81 - 9.65 Not Available Ada Ochoa MD [facility] (In House [facility]) [address] [place] [address], [address], 04/27/2024 11:23:16 04/27/20 24 04/27/2024 CBC WITH DIFFE RENTI AL/PL ATELE T lymph# 2.41 10 0.65 - 4.81 Not Available Ada Ochoa MD [facility] ([facility]) [address] [place] [address], [address], 04/27/2024 11:23:16 04/27/20 24 04/27/2024 CBC WITH DIFFE RENTI AL/PL ATELE T mono# 0.92 10 0.10 - 1.13 Not Available Ada Ochoa MD [facility] ([facility]) [address] [place] [address], [address], 04/27/2024 11:23:16 04/27/20 24 04/27/2024 CBC WITH DIFFE RENTI AL/PL ATELE T eo# 0.58 10 0.00 - 0.50 high Not Available Ada Ochoa MD [facility] (In House [facility]) [address] [place] [address], [address], 04/27/2024 11:23:16 04/27/20 24 04/27/2024 CBC WITH DIFFE RENTI AL/PL ATELE T baso# 0.09 10 0.00 - 0.09 Not Available Ada Ochoa MD [facility] (In House [facility]) [address] [place] [address], [address], 04/27/2024 11:23:16 04/27/20 24 04/27/2024 CBC WITH DIFFE RENTI AL/PL ATELE T neut% 67.6 % 37.2 - 78.0 Not Available Ada Ochoa MD [facility] (In House [facility]) [address] [place] [address], [address], 04/27/2024 11:23:16 04/27/20 24 04/27/2024 CBC WITH DIFFE RENTI AL/PL ATELE T lymph% 19.5 % 13.4 - 50.2 Not Available Ada Ochoa MD [facility] (In House [facility]) [address] [place] [address], [address], 04/27/2024 11:23:16 04/27/20 24 04/27/2024 CBC WITH DIFFE RENTI AL/PL ATELE T mono% 7.5 % 3.4 - 12.0 Not Available Ada Ochoa MD [facility] ([facility]) [address] [place] [address], [address], 04/27/2024 11:23:16 04/27/20 24 04/27/2024 CBC WITH DIFFE RENTI AL/PL ATELE T eo% 4.7 % 0.0 - 7.0 Not Available Ada Ochoa MD [facility] ([facility]) [address] [place] [address], [address], 04/27/2024 11:23:16 04/27/20 24 04/27/2024 CBC WITH DIFFE RENTI AL/PL ATELE T baso% 0.7 % 0.0 - 3.0 Not Available Ada Ochoa MD [facility] ([facility]) [address] [facility], [place], [address], 04/27/2024 11:23:16 Result Notes None recorded. Problems Name Problem SNOMED Code Status Onset Date Resolution Date Notes Provider Name and Address Organization Details Recorded Time Lumbosacral radiculopathy 8352392 Active 2023 ARAVIND DURBIN MD [address] [place], [address] 09:31:06 Problem [...] Not Available Not Available N ot Available Pito Ellipta 200 mcg-62.5 mcg-25 mcg powder for inhalation INHALE 1 PUFF BY MOUTH ONCE DAILY active Not Available Not Available No t Available Vitals Date Recorded Body weight Body temperature Respiratory rate Heart rate Systolic And Diastolic Provider Name and Address Organization Details Last Updated DateTime 4 52273.7 4 g 97.9 [degF] 16 /min 61 /min 127/71 mm[Hg] [facility] 4 10:05:23 Date Recorded Respiratory rate Body temperature Heart rate Body weight Systolic And Diastolic Provider Name and Address Organization Details Last Updated DateTime 4 16 /min 97.3 [degF] 60 /min 20721.9 3 g 125/68 mm[Hg] [facility] 4 09:16:38 [...] SARS-COV-2 (COVID-19) vaccine, UNSPECIFIED 04/06/2024 completed [facility] [place], [place] - [facility] 04/27/2024 10:06:04 Past Encounters Encounter ID Performer Location Encounter Start Date Encounter Closed Date Diagnosis/Indication Diagnosis SNOMED-CT Code Diagnosis ICD10 Code Diagnosis Note [id number] ARAVIND DURBIN MD [address] [place] [id number] 4 04/27/2024 09:09:33 04/27/2024 16:20:53 Lumbago with sciatica 862951242 M54.42 Long-term current use of opiate analgesic drug 2196918056 97175 Z79.891 Diagnostic /Lab: Order Presumptiv e UDT [...] electrolyt e statusdraw n to monitor the director long term care effects of current medication . [id number] ARAVIND DURBIN MD [address] [place] [id number] 4 06/28/2024 09:11:44 06/28/2024 15:52:17 Lumbosacral radiculopathy 0992283 M54.16 Health Concerns Section Related Observation LastModified by Organization Detai ls LastModified Time None Recorded Concern Status LastModified by Organization Details LastModified Time None Recorded Advance Directives Directive None Recorded Payers Insurance Date Sequence Insurance Name Policy Number Policy Roberts Covered Member ID Roberts Member ID Guarantor Name 07/18/2024 1 [id number]) [id number] Efra Beyer [id number] Bhavana Beyer Notes Date Note Type Note Provider Name and Address Organization Details Recorded Time 04/27/2024 text/html [facility] report reviewed and compliant. Sent [...] and L45 tranforminal epidura;l ARAVIND DURBIN MD [address] , [place], [address], [facility] 04/27/2024 10:40:31 06/28/2024 text/html [facility] report reviewed and compliant. Pain [...] L45 transforminal nerve block ARAVIND DURBIN MD [address], [place], [address], [facility] 06/28/2024 09:34:26 OBGyn Episode No OBEpisode recorded.
[2025-05-16 09:00] LABS: Hematocrit 33.2 % (37.0-47.0); Hemoglobin 11.1 g/dL (12.2-16.2); Immature Granulocytes % 0.4 %; Mean Corpuscular HGB Conc 33.4 g/dL (31.8-35.4); Mean Corpuscular Hemoglobin 32.7 pg (27.0-31.2); Mean Corpuscular Volume 97.9 fl (81-99); Nucleated Red Blood Cells % 0 %; Platelet Count 474 K/mm3 (142-424); Red Blood Count 3.39 M/mm3 (4.20-5.40); Red Cell Distribution Width-SD 45.0 fL; White Blood Count 10.3 K/mm3 (4.8-10.8)
[2025-05-16 09:23] LABS: Anion Gap 14.4 mEq/L (5-15); Blood Urea Nitrogen 10 mg/dl (7-17); Calcium 9.9 mg/dl (8.4-10.2); Carbon Dioxide 30 mmol/L (22.0-30.0); Chloride 93 mmol/L (98-107); Creatinine,Serum 0.50 mg/dl (0.52-1.04); Estimated Glomerular Filt Rate 122 ml/min (>60); GFR (African American) 148 ML/MIN (>60); Glucose 97 mg/dl (74-100); Magnesium 1.6 mg/dl (1.6-2.3); Potassium 4.4 mmoL/L (3.5-5.1); Sodium 133 mmol/L (136-145)
== END 2025-05-16 23:59 | disposition home or self-care (01) ==
LOC: LAB 08:09
PROVIDERS: PCP Nurse Practitioner; Visit Provider Internal Medicine
DX: I11.9 Hypertensive heart disease without heart failure (principal)
CPT/HCPCS: 36415; 80048; 83735; 85025

== ENCOUNTER 2025-06-19 08:36 | Outpatient (CLI) | payer BC, SELFPAY ==
--- OUTSIDE RECORDS SUMMARY | 2025-06-19 08:39 | XMS_ITS | Clinical Summary ---
Author Organization [facility] Address [address] [place] [id number] Care Team Providers Care Clerical Investigator Name Role Phone Provider, No Known Primary Care Provider Unavail able Allergies Active Allergy Reactions Criticality Noted Date Comments Clarithromycin Nausea And Vomiting 12/12/2024 Duloxetine Hcl Nausea And Vomiting Medium 07/20/2014 Levofloxacin Palpitations Low 06/08/2024 UNKNOWN Sulfamethoxazole-Trimethoprim Nausea And Vomiting 06/08/2024 UNKNOWN Tramadol Nausea And Vomiting 06/08/2024 Trazodone Nausea And Vomiting Medium 09/04/2014 Medications pravastatin (PRAVACHOL) 40 MG tablet Daily. Active olmesartan (BENICAR) 40 MG tablet 1 tablet Daily. Active amLODIPine (NORVASC) 10 MG tablet 1 tablet Daily. Active bisoprolol (ZEBeta) 5 MG tablet Take 1 tablet by mouth Daily. Active albuterol (ACCUNEB) 1.25 MG/3ML nebulizer solution As Needed. Active Fluticasone-Umec lidin-Vilant (Trelegy Ellipta) 200-62.5-25 MCG/ACT inhaler Inhale 1 puff Daily. Active Active Problems No known active problems Family History Medical History Relation Name Comments Cancer Father prostate Diabetes Father Cancer Mother bladder and spi ne Stroke Mother Relation Name Status Comments Father Mother Social History Tobacco Use Types Packs/Day Years Used Date Smoking Tobacco: Every Day Cigarettes Smokeless Tobacco: Never Tobacco Cessation:Ready to Q uit: Not Asked; Counseling Given: Not Answered Alcohol Use Standard Drinks/Week Comments Yes 0 (1 standard drink = 0.6 oz pur e alcohol) 4 a month Comments Unknown Sex and Gender Information Value Date Recorded Sex Assigned at Not on file Legal Sex Female 1:47 PM EST Gender Identity Not on file Sexual Orientation Not on file Last Filed Vital Signs Vital Sign Reading Time Taken Comments Blood Pressure 140/88 12/12/2024 8:25 AM EST Pulse - - Temperature - - Respiratory Rate - - Oxygen Saturation - - Inhaled Oxygen Concentration - - Weight 77.6 kg (171 lb) 12/12/2024 8:25 AM EST Height 162.6 cm (5' 4 ) 12/12/2024 8:25 AM EST Body Mass Index 29.35 12/12/2024 8:25 AM EST Plan of Treatment Health Maintenance Due Date Last Done Comments TDAP/TD VACCINES (1 - Tdap) 1974 COLOGUARD 2000 COLON CANCER SCREENING 5 YEA R SIGMOIDOSCOPY [address] COLONOGRAPHY 2000 FIT Testing (1 year) 2000 ZOSTER VACCINE (1 of 2) 2005 FECAL OCCULT BLOOD TEST 12/07/2019 12/07/2018 DXA SCAN 09/16/2020 09/16/2018, 09/16/2018 MAMMOGRAM 09/16/2020 09/16/2018, 09/02, 08/14/2017, Additional history exists COVID-19 Vaccine (2023-2 5 season) 2024 04/06/2024, 11/15/2021, 02/06/2021, Additional history exists ANNUAL PHYSICAL 12/12/2024 HEPATITIS C SCREENING 12/12/2024 INFLUENZA VACCINE 08/02/2025 11/18/2024, , 11/15/2021, Additional history exists COLONOSCOPY 04/28/2026 04/28/2016 COLORECTAL CANCER SCREENING 04/28/2026 Pneumococcal Vaccine 50+ Completed 09/23/2022, 06/03 Insurance [facility] PPO Care Teams Clerical Investigator Relationship Specialty Start Date End Date Provider, [place] [address] PCP - General 12/12/24
--- OUTSIDE RECORDS SUMMARY | 2025-06-19 08:39 | XMS_ITS | Clinical Summary ---
Author Organization [employer] ([place], [place]) Address [address] [place] [address] Care Team Providers Care Fruit Or Nut Crops Farm Manager Name Role Phone Analilia Mayer PA-C Primary Care Provider [phone] Allergies Active Allergy Reactions Criticality Noted Date [...] Date Smoking Tobacco: Every Day Cigarettes 0.3 41 Started: 06/08/1984 Smokeless Tobacco: Never Tobacco Cessation:Ready [...] Date Lamine rded Speak language other than Czech at home Not on file 06/03/2024 Want [...] 09/16/2018, 08/14/2017, Additional history exists COVID-19 VACCINE ( - 2023-2 5 season) 2024 04/06/2024, 11/15/2021, 02/06/2021, Additional history exists Falls Risk Screening 11/02/2024 Influenza Vaccine (#1) 2025 , 09/23/2022, 08/07/2020 Respiratory Syncytial Virus (RSV) Adult or (1 - 1-dose 75+ series) 2030 Pneumococcal 50+ years Completed 09/23/2022, 2020 Insurance BLUE CROSS/BLUE SHIELD Care Teams Fruit Or Nut Crops Farm Manager Relationship Specialty Start Date End Date Analilia Mayer PA-C [address] [place] [address] PCP - General Physician Medication Administration Professional 06/10/24
--- OUTSIDE RECORDS SUMMARY | 2025-06-19 08:39 | XMS_ITS | Clinical Summary ---
Author Organization Healthcare Address [address] [place] [address] Care Team Providers Care Director Of In Service Education Name Role Phone Sepideh Talbot AAYUSH Primary Care Provider [phone] Medications Fluticasone-Umec lidin-Vilant (Trelegy Ellipta) 100-62.5-25 MCG/ACT [...] 2005 UKY-Zoster Vaccines (1 of 2) 2005 [id number] Vaccine ( season) 2024 11/15/2021, 02/06/2021, 01/02/2021 [...] age to complete this topic Insurance [facility] [place] [address] Care Teams Director Of In Service Education Relationship Specialty Start Date End Date TalbotSepideh, SAND MIXER OPERATOR [address] [facility] [address] [place] [address] PCP - General 06/01/23
--- OUTSIDE RECORDS SUMMARY | 2025-06-19 08:39 | XMS_ITS | Referral Summary ---
Author Organization [employer] ([place], [place], [place], [place]) Address [address] [place] [address] Care Team Providers Care Digging Machine Operator Name Role Phone Analilia Mayer PA-C Primary Care Provider [phone] Allergies Active Allergy Reactions Criticality Noted Date [...] Date Lamine rded Speak language other than Mongolian at home Not on file 06/03/2024 Want [...] file Insurance BLUE CROSS/BLUE SHIELD Care Teams Digging Machine Operator Relationship Specialty Start Date End Date Analilia Mayer PA-C [address] [place] [address] PCP - General Physician Forensic Toxicologist 06/10/24
--- OUTSIDE RECORDS SUMMARY | 2025-06-19 08:39 | XMS_ITS ---
Laboratory report Created on: May 17, 2025 LETY DAVENPORT : 1955 Sex: Female Author Organization Unknown PROBLEMS Problems List Code Description RESULTS Laboratory Orders Date Order Code Test 2025-05-10 [id number] IMMUNOFIXATION, SERUM Laboratory Results Date LOINC Test Value Unit Reference Range Interpre tation 2025-05-10 26773-3 IMMUNOFIXATION R ESULT, SERUM UPEIP 2025-05-10 2465-3 IMMUNOGLOBULIN G , QN, SERUM 533 MG/DL [id number] L 2025-05-10 2458-8 IMMUNOGLOBULIN A , QN, SERUM 138 MG/DL [id number] 2025-05-10 2472-9 IMMUNOGLOBULIN M , QN, SERUM 75 MG/DL [id number]
== END 2025-06-19 23:59 | disposition home or self-care (01) ==
LOC: LAB.DROPOF 08:36
PROVIDERS: PCP Nurse Practitioner; Visit Provider Nurse Practitioner
DX: R89.9 Unspecified abnormal finding in specimens from other organs, systems and tissues (principal)
CPT/HCPCS: 87070; 87205

== ENCOUNTER 2025-09-13 09:26 | Outpatient (CLI) | payer BC, SELFPAY ==
--- OUTSIDE RECORDS SUMMARY | 2025-09-13 09:32 | XMS_ITS | Clinical Summary ---
Author Organization [facility] Address [address] [place] [id number] Care Team Providers Care Commercial Baker Helper Name Role Phone Provider, No Known Primary [...] 09/16/2020 09/16/2018, 09/02, 08/14/2017, Additional history exists ANNUAL PHYSICAL 12/12/2024 HEPATITIS C SCREENING 12/12/2024 INFLUENZA VACCINE 06/02/2025 11/18/2024, , 11/15/2021, Additional history exists COVID-19 Vaccine (2024-2 6 season) 2025 04/06/2024, 11/15/2021, 02/06/2021, Additional history exists COLONOSCOPY 04/28/2026 04/28/2016 COLORECTAL CANCER SCREENING 04/28/2026 Pneumococcal Vaccine 50+ Completed 09/23/2022, 06/03 Insurance [facility] PPO Care Teams Commercial Baker Helper Relationship Specialty Start Date End Date Provider, [place] [address] PCP - General 12/12/24
--- OUTSIDE RECORDS SUMMARY | 2025-09-13 09:33 | XMS_ITS | Data Portability ---
Author Organization [facility] Office Address [address] [address] Care Team Providers Care Paralegal Internship Name Role Phone CATHY CONNORS Referring Provider [phone] Assessment No assessment recorded. Plan of Treatment Reminders Order Date Submit Date Provider Last Modified By Organization Details Last Modified Time Details Appointments None recorde d. Lab drug screen, urine - Meds: NPE/nws 2023 024 ESTEFANI Ochoa MD [facility] ([facility]), [address] [place], [address], 4 09:49:45 CMP, serum or plasma 2023 024 shania Ochoa MD [facility] ([facility]), [address] [place], [address], 4 12:20:59 gamma-g lutamyl transfe rase (ggt), serum 2023 024 shania Ochoa MD [facility] ([facility]), [address] [place], [address], 4 12:20:59 CBC w/ auto diff 2023 024 shania Ochoa MD [facility] ([facility]), [address] [place], [address], 4 12:20:59 venipun cture 2023 024 [email or web address] Ada Ochoa MD [facility] ([facility]), [address] [facility], [place], [address], 4 12:20:59 [facility] Beh Med eval as part of multi mode pain managem ent 2023 024 [facility] [address], [address] [facility], [facility] [address], [place], [address], 4 08:55:[address] refer l - Diagnos e and treat 2023 024 [email or web address] In [facility] (Former[facility]), [address] [place] [address] , [place], [address], 4 09:09:45 Procedures epidura l steroid injecti on, lumbar interla minar (PROC) - Order # [id number] interla adriana [id number] [address], [facility] [place], [address], 4 10:32:49 epidura l steroid injecti on, lumbar transfo raminal (PROC) - Order #[id number] 1 right L34 and L45 with sedatio n [address], [address] [place], [address], 4 16:57:22 Surgeries None recorde d. Imaging None recorde d. Medication Orders None recorde d. Patient TargetsNo targets recorded. Patient Instructions Encounter Date Encounter Id Patient Instructions Last Modified By Organization Details Last Modified Time 04/27/[id number] Take medications EXACTLY as instructed. Call office for any problems DO NOT run out of medications and medications should last till next appointment. Notify office if going to be late or need to reschedule. [email or web address] Not available 04/27/2024 09:12:21 06/28/2024 [id number] back pain: care instructions [email or web address] Not available [...] Eugenie Ochoa MD [facility] ([facility]) [address] [place] [address], [address], 04/27/2024 11:23:17 04/27/20 24 04/27/2024 COMPR EHENS VICK METAB OLIC PANEL (CMP) glucose 91.0 mg/dL 74.0 - 110.0 Not Available Ada Ochoa MD [facility] ([facility]) [address] [place] [address], [address], 04/27/2024 11:23:17 04/27/20 24 04/27/2024 COMPR EHENS VICK METAB OLIC PANEL (CMP) BUN 11.0 mg/dL 4.0 - 25.0 Not Available Ada Ochoa MD [facility] ([facility]) [address] [place] [address], [address], 04/27/2024 11:23:17 04/27/20 24 04/27/2024 COMPR EHENS VICK METAB OLIC PANEL (CMP) creatinine 0.6 mg/dL 0.6 - 1.8 Not Available Ada Ochoa MD [facility] (In House Lab) [address] [place] [address], [address], 04/27/2024 11:23:17 04/27/20 24 04/27/2024 COMPR EHENS VICK METAB OLIC PANEL (CMP) sodium 134 mEq/L 133 - 145 Not Available Ada Ochoa MD [facility] (In House Lab) [address] [place] [address], [address], 04/27/2024 11:23:17 04/27/20 24 04/27/2024 COMPR EHENS VICK METAB OLIC PANEL (CMP) potassium 4.4 mEq/L 3.4 - 5.1 Not Available Ada Ochoa MD [facility] (In House Lab) [address] [place] [address], [address], 04/27/2024 11:23:17 04/27/20 24 04/27/2024 COMPR EHENS VICK METAB OLIC PANEL (CMP) chloride 99.3 mEq/L 93.0 - 106.0 Not Available Ada Ochoa MD [facility] (In House Lab) [address] [place] [address], [address], 04/27/2024 11:23:17 04/27/20 24 04/27/2024 COMPR EHENS VICK METAB OLIC PANEL (CMP) eco2 29.0 mEq/L 24.6 - 35.8 Not Available Ada Ochoa MD [facility] (In House Lab) [address] [place] [address], [address], 04/27/2024 11:23:17 04/27/20 24 04/27/2024 COMPR EHENS VICK METAB OLIC PANEL (CMP) calcium 9.3 mg/dL 8.3 - 10.1 Not Available Ada Ochoa MD [facility] (In House Lab) [address] [place] [address], [address], 04/27/2024 11:23:17 04/27/20 24 04/27/2024 COMPR EHENS VICK METAB OLIC PANEL (CMP) total protein 6.6 g/dL 6.0 - 8.5 Not Available Ada Ochoa MD [facility] (In House Lab) [address] [place] [address], [address], 04/27/2024 11:23:17 04/27/20 24 04/27/2024 COMPR EHENS VICK METAB OLIC PANEL (CMP) albumin 4.4 g/dL 3.3 - 4.9 Not Available Ada Ochoa MD [facility] (In House Lab) [address] [place] [address], [address], 04/27/2024 11:23:17 04/27/20 24 04/27/2024 COMPR EHENS VICK METAB OLIC PANEL (CMP) ALP 72.0 U/L 46.0 - 116.0 Not Available Ada Ochoa MD [facility] (In House Lab) [address] [place] [address], [address], 04/27/2024 11:23:17 04/27/20 24 04/27/2024 COMPR EHENS VICK METAB OLIC PANEL (CMP) AST 20 U/L 6 - 40 Not Available Ada Ochoa MD [facility] (In House Lab) [address] [place] [address], [address], 04/27/2024 11:23:17 04/27/20 24 04/27/2024 COMPR EHENS VICK METAB OLIC PANEL (CMP) ALT 19 U/L 5 - 30 Not Available Ada Ochoa MD [facility] (In House Lab) [address] [place] [address], [address], 04/27/2024 11:23:17 04/27/20 24 04/27/2024 COMPR EHENS VICK METAB OLIC PANEL (CMP) total bilirubin 0.74 mg/dL 0.00 - 1.00 Not Available Ada Ochoa MD [facility] (In House Lab) [address] [place] [address], [address], 04/27/2024 11:23:17 04/27/20 24 04/27/2024 CBC WITH DIFFE RENTI AL/PL ATELE T WBC 12.3 10 4.0 - 11.0 high Not Available Ada Ochoa MD [facility] (In House Lab) [address] [place] [address], [address], 04/27/2024 11:23:16 04/27/20 24 04/27/2024 CBC WITH DIFFE RENTI AL/PL ATELE T RBC 3.89 10 3.72 - 5.52 Not Available Ada Ochoa MD [facility] (In House [facility]) [address] [place] [address], [address], 04/27/2024 11:23:16 04/27/20 24 04/27/2024 CBC WITH DIFFE RENTI AL/PL ATELE T HGB 13.0 g/dL 11.0 - 16.6 Not Available Ada Ochoa MD [facility] (In House Lab) [address] [place] [address], [address], 04/27/2024 11:23:16 04/27/20 24 04/27/2024 CBC WITH DIFFE RENTI AL/PL ATELE T HCT 38.1 % 34.0 - 49.0 Not Available Ada Ochoa MD [facility] (In House [facility]) [address] [place] [address], [address], 04/27/2024 11:23:16 04/27/20 24 04/27/2024 CBC WITH DIFFE RENTI AL/PL ATELE T MCV 97.9 fL 79.5 - 101.0 Not Available Ada Ochoa MD [facility] ([facility]) [address] [place] [address], [address], 04/27/2024 11:23:16 04/27/20 24 04/27/2024 CBC WITH DIFFE RENTI AL/PL ATELE T MCH 33.4 pg 26.2 - 34.0 Not Available Ada Ochoa MD [facility] ([facility]) [address] [place] [address], [address], 04/27/2024 11:23:16 04/27/20 24 04/27/2024 CBC WITH DIFFE RENTI AL/PL ATELE T MCHC 34.1 g/dL 31.3 - 36.0 Not Available Ada Ochoa MD [facility] (In House Lab) [address] [place] [address], [address], 04/27/2024 11:23:16 04/27/20 24 04/27/2024 CBC WITH DIFFE RENTI AL/PL ATELE T plt 377 10 115 - 421 Not Available Ada Ochoa MD [facility] (In House Lab) [address] [place] [address], [address], 04/27/2024 11:23:16 04/27/20 24 04/27/2024 CBC WITH DIFFE RENTI AL/PL ATELE T RDW-CV 12.9 % 11.3 - 16.1 Not Available Ada Ochoa MD [facility] (In House [facility]) [address] [place] [address], [address], 04/27/2024 11:23:16 04/27/20 24 04/27/2024 CBC WITH DIFFE RENTI AL/PL ATELE T neut# 8.34 10 0.81 - 9.65 Not Available Ada Ochoa MD [facility] (In House Lab) [address] [place] [address], [address], 04/27/2024 11:23:16 04/27/20 24 04/27/2024 CBC WITH DIFFE RENTI AL/PL ATELE T lymph# 2.41 10 0.65 - 4.81 Not Available Ada Ochoa MD [facility] ([facility]) [address] [place] [address], [address], 04/27/2024 11:23:16 04/27/20 24 04/27/2024 CBC WITH DIFFE RENTI AL/PL ATELE T mono# 0.92 10 0.10 - 1.13 Not Available Ada Ochoa MD [facility] ([facility]) [address] [place] [address], [address], 04/27/2024 11:23:16 04/27/20 24 04/27/2024 CBC WITH DIFFE RENTI AL/PL ATELE T eo# 0.58 10 0.00 - 0.50 high Not Available Ada Ochoa MD [facility] (In House Lab) [address] [place] [address], [address], 04/27/2024 11:23:16 04/27/20 24 04/27/2024 CBC WITH DIFFE RENTI AL/PL ATELE T baso# 0.09 10 0.00 - 0.09 Not Available Ada Ochoa MD [facility] (In House Lab) [address] [place] [address], [address], 04/27/2024 11:23:16 04/27/20 24 04/27/2024 CBC WITH DIFFE RENTI AL/PL ATELE T neut% 67.6 % 37.2 - 78.0 Not Available Ada Ochoa MD [facility] (In House Lab) [address] [place] [address], [address], 04/27/2024 11:23:16 04/27/20 24 04/27/2024 CBC WITH DIFFE RENTI AL/PL ATELE T lymph% 19.5 % 13.4 - 50.2 Not Available Ada Ochoa MD [facility] (In House Lab) [address] [place] [address], [address], 04/27/2024 11:23:16 04/27/20 24 04/27/2024 CBC WITH DIFFE RENTI AL/PL ATELE T mono% 7.5 % 3.4 - 12.0 Not Available Ada Ochoa MD [facility] ([facility]) [address] [place] [address], [address], 04/27/2024 11:23:16 04/27/20 24 04/27/2024 CBC WITH DIFFE RENTI AL/PL ATELE T eo% 4.7 % 0.0 - 7.0 Not Available Ada Ochoa MD [facility] ([facility]) [address] [place] [address], [address], 04/27/2024 11:23:16 04/27/20 24 04/27/2024 CBC WITH DIFFE RENTI AL/PL ATELE T baso% 0.7 % 0.0 - 3.0 Not Available Ada Ochoa MD [facility] ([facility]) [address] [facility], [place], [address], 04/27/2024 11:23:16 Result Notes None recorded. Problems Name Problem SNOMED Code Status Onset Date Resolution Date Notes Provider Name and Address Organization Details Recorded Time Lumbosacral radiculopathy 1327180 Active 2023 ARAVIND DURBIN MD [address] [place], [address] [facility] 09:31:06 [...] Address Organization Details Last Updated DateTime 4 [address]492.7 4 g 97.9 [degF] 16 /min 61 /min 127/71 mm[Hg] [facility] 4 10:05:23 Date Recorded Respiratory rate Body temperature Heart rate Body weight Systolic And Diastolic Provider Name and Address Organization Details Last Updated DateTime 4 16 /min 97.3 [degF] 60 /min 26768.9 3 g 125/68 mm[Hg] Lula [facility]CHOA M.D., [...] SARS-COV-2 (COVID-19) vaccine, UNSPECIFIED 04/06/2024 completed Lula [place], [place] - [facility] 04/27/2024 10:06:04 Past Encounters Encounter ID Performer Location Encounter Start Date Encounter Closed Date Diagnosis/Indication Diagnosis SNOMED-CT Code Diagnosis ICD10 Code Diagnosis IMO Codes Diagnosis Note [id number] ARAVIND DURBIN MD [address] [place] [address] 04/27/2024 09:09:33 04/27/2024 16:20:53 Lumbago with sciatica 068097824 M54.42 Long-term current use of opiate analgesic drug 0519428803 18358 Z79.891 Diagnostic /Lab: Order Presumptiv e UDT [...] tapentadol and carisoprod ol). HP2 (CBC/CMP/G GT) C BC - ordered to monitor the effects of prescribed medication CMP/GGT - ordered to obtain baseline levels for renal and hepatic functions and electrolyt e statusdraw n to monitor the group home effects of current medication . [id number] ARAVIND DURBIN MD [address] [place] [phone] 4 06/28/2024 09:11:44 06/28/2024 15:52:17 Lumbosacral radiculopathy 8963111 M54.16 Health Concerns Section Related Observation LastModified by Organization Detai ls LastModified Time None Recorded Concern Status LastModified by Organization Details LastModified Time None Recorded Advance Directives Directive None Recorded Payers Insurance Date Sequence Insurance Name Policy Number Policy Roberts Covered Member ID Roberts Member ID Guarantor Name 07/18/2024 1 [place] [id number] Efra Beyer [id number] B[place] Notes Date Note Type Note Provider Name and Address Organization Details Recorded Time 04/27/2024 text/html [facility] report reviewed and compliant. Sent [...] and L45 tranforminal epidura;l ARAVIND DURBIN MD [address] [facility], [place], [address], [facility] 04/27/2024 10:40:31 06/28/2024 text/html [facility] report reviewed and compliant. Pain [...] L45 transforminal nerve block ARAVIND DURBIN MD [address] [facility], [place], [address], [facility] 06/28/2024 09:34:26 OBGyn Episode No OBEpisode recorded.
--- OUTSIDE RECORDS SUMMARY | 2025-09-13 09:33 | XMS_ITS | Clinical Summary ---
Author Organization Healthcare Address [address] [place] [address] Care Team Providers Care Yarn Tester Name Role Phone Sepideh Talbot AAYUSH Primary Care Provider [phone] Medications Fluticasone-Umec lidin-Vilant (Trelegy Ellipta) 100-62.5-25 MCG/ACT [...] Date Diagnosed Date Blood pressure instability 06/01/202306/01 COPD (chronic obstructive pulmonary disease) 06/01/2023 Resolved Problems Problem Noted Date Diagnosed Date Resolved Date Fatigue 06/01/2023 06/01/2023 07/23/2025 Numbness and tingling 06/01/2023 06/01/20232024 Immunizations Immunization Administration Dates Next Due Influenza, [...] 2005 [facility]-Zoster Vaccines (1 of 2) 2005 [id number] Vaccine ( season) 2025 11/15/2021, 02/06/2021, 01/02/2021 [facility]-Influenza Vaccine (#1) 07/03/202509/23, [...] patient's age to complete this topic Insurance MEDICARE Care Teams Yarn Tester Relationship Specialty Start Date End Date Sepideh Talbot APRN [address] [place] [address] PCP - General 06/01/23
[2025-09-13 09:59] LABS: Blood Urea Nitrogen 13 mg/dl (7-17); Creatinine,Serum 0.60 mg/dl (0.52-1.04); Estimated Glomerular Filt Rate 99 ml/min (>60); GFR (African American) 120 ML/MIN (>60)
== END 2025-09-13 23:59 | disposition home or self-care (01) ==
LOC: LAB 09:28
PROVIDERS: PCP Nurse Practitioner; Visit Provider Nurse Practitioner
DX: K76.89 Other specified diseases of liver (principal)
CPT/HCPCS: 36415; 82565; 84520

== ENCOUNTER 2025-09-20 08:22 | Outpatient (CLI) | payer BC, SELFPAY ==
--- NOTE | 2025-09-20 08:28 | CT_ITS ---
FINAL REPORT TECHNIQUE: Thin section axial images are obtained through the abdomen and pelvis after intravenous contrast. Reconstruction images were obtained from the axial data. Exam was performed using dose reduction techniques. This study was performed with techniques to keep radiation doses as low as reasonably achievable (ALARA). Individualized dose reduction techniques using automated exposure control or adjustment of mA and/or kV according to the patient's size were employed. CLINICAL HISTORY: LIVER LESIONS, ruq pain COMPARISON: 10/21/2023 FINDINGS: LUNG BASES: Lung bases are clear. Heart size is normal. LIVER: Homogeneous. No focal lesion. GALLBLADDER/BILIARY SYSTEM: The gallbladder has been surgically resected. No biliary dilatation. SPLEEN: Unremarkable. PANCREAS: Unremarkable. ADRENALS: Unremarkable. KIDNEYS/URETERS/BLADDER: No hydronephrosis or renal stone. There are bilateral small hypodense renal lesions, that appear similar to the prior exam of 2022. Most of these hypodense lesions are too small to characterize but appear to represent cysts. The bladder is collapsed. GI TRACT: There are fluid-filled loops of small bowel in the abdomen and pelvis, that may represent enteritis. The remaining GI tract is without acute abnormality. The appendix is not visualized, but no secondary signs of appendicitis are seen. PELVIC ORGANS: The uterus is absent. No free fluid is identified. LYMPH NODES/RETROPERITONEUM/MESENTERY: There are small retroperitoneal nodes which are stable and likely reactive. No abdominal aortic aneurysm. ABDOMINAL WALL: The abdominal wall is intact. FREE FLUID: No ascites. BONES: No acute osseous abnormality. IMPRESSION: 1. No focal liver lesion is identified, and the liver is homogeneous in appearance. 2. Bilateral small hypodense renal lesions, which appears similar to the prior exam. Most are too small to characterize but appear to represent cysts. 3. Fluid-filled small bowel in the abdomen and pelvis that may represent enteritis. Reviewed, Interpreted and Dictated by Traci Davis MD Transcribed by Melissa Higginbotham Authenticated and . [facility]
[2025-09-20] MEDS: IOPAMIDOL-370 (76%);100ML BOTTLE 75 ML IV (08:45)
[2025-09-20] MEDS: SODIUM CHLORIDE 0.9% 10ML SYR (RAD ONLY) 10 ML IV (08:45)
== END 2025-09-20 23:59 | disposition home or self-care (01) ==
LOC: RAD 08:24
PROVIDERS: PCP Nurse Practitioner; Visit Provider Nurse Practitioner
DX: N28.89 Other specified disorders of kidney and ureter (principal); K76.89 Other specified diseases of liver; R93.3 Abnormal findings on diagnostic imaging of other parts of digestive tract
CPT/HCPCS: 74177; Q9967